=== PATIENT | female | born 1955 | race Caucasian/White ===

== ENCOUNTER → 2017-06-17 09:33 | Outpatient (CLI) | payer BC, SELFPAY ==
[2017-06-17 12:09] LABS: Absolute Lymphocyte Count 1.41 X10^3/ul (0.83-4.51); Absolute Neutrophil Count 4.1 X10^3/uL (2.0-7.7); Basophil# 0.04 X10^3/uL; Basophil% 0.7 % (0-1); Eosinophil# 0.14 X10^3/uL; Eosinophils% 2.3 % (0-5); Hematocrit 34.5 % (37-47); Hemoglobin 10.7 g/dl (12.0-15.0); Lymphocyte # 1.41 X10^3/ul (4.0); Lymphocyte % 23.6 % (19-41); Mean Corpuscular Hgb 28.1 pg (27.0-32.0); Mean Corpuscular Volume 90.6 fL (81-99); Neutrophil # 4.07 X10^3/uL (2.7-7.7); Neutrophil % 68.1 % (47-70); Platelet Count 360 K/mm3 (150-450); RBC Distribution Width SD 49.2 fl (35.1-43.9); Red Blood Count 3.81 M/mm3 (4.2-5.4)
[2017-06-17 12:23] LABS: POSITIVE COUNT NO; POSITIVE DIFFERENTIAL NO; POSITIVE MORPHOLOGY NO
[2017-06-17 12:27] LABS: Erythrocyte Sedimentation Rate 19 mm/hr (0-30)
[2017-06-17 12:55] LABS: ALB/GLOB Ratio 1.1 RATIO (0.9-2.4); AST(SGOT) 19 U/L (15-37); Alanine Aminotransfer ALT/SGPT 27 U/L (13-56); Albumin, Serum 3.5 g/dL (3.2-5.0); Alkaline Phosphatase 83 U/L (45-117); Anion Gap 7 (5-15); BUN 17 mg/dL (7-18); BUN/Creat Ratio 17.1 RATIO (10-20); Calcium,Total 8.9 mg/dL (8.5-10.1); Chloride 105 mmol/L (98-107); Creatinine, Serum 0.99 mg/dL (0.55-1.02); EST Glomerular Filtration Rate 60 mL/min (>60); Est Glom Filt Rate - Afr Amer 73 mL/min (>60); Globulin 3.2 g/dL (2.2-4.2); Glucose 103 mg/dL (74-106); Potassium 3.7 mmol/L (3.5-5.1); Protein, Total 6.7 g/dL (6.4-8.2); Sodium Level 141 mmol/L (136-145); Thyroid Stim Hormone (TSH) 0.96 uIU/mL (0.358-3.74)
[2017-06-17 16:16] LABS: Ferritin 10 ng/mL (8-252); Iron 39 ug/dL (50-170)
[2017-06-18 10:37] LABS: Vitamin D,25 Hydroxy 31.3 ng/mL (19.95-100.01)
== END ==
PROVIDERS: Family Provider Family Medicine; PCP Family Medicine; Visit Provider Family Medicine
DX: I12.9 Hypertensive chronic kidney disease with stage 1 through stage 4 chronic kidney disease, or unspecified chronic kidney disease (principal); N18.9 Chronic kidney disease, unspecified; M06.9 Rheumatoid arthritis, unspecified; E55.9 Vitamin D deficiency, unspecified; D64.9 Anemia, unspecified
CPT/HCPCS: 36415; 80053; 82306; 82728; 83540; 84443; 85025; 85652

== ENCOUNTER → 2017-07-02 10:29 | Outpatient (CLI) | payer BC, SELFPAY ==
[2017-07-03 16:10] LABS: Endomysial Antibody IgA Negative (Negative); Immunoglobulin A 73 mg/dL (87-352)
[2017-07-04 11:15] LABS: t-Transglutaminase IgA <2 U/mL (0-3)
== END ==
PROVIDERS: Family Provider Family Medicine; PCP Family Medicine; Visit Provider Internal Medicine Gastroenterology
DX: D50.9 Iron deficiency anemia, unspecified (principal)
CPT/HCPCS: 36415; 82784; 83516; 86255

== ENCOUNTER → 2017-07-16 12:04 | Outpatient (CLI) | payer BC, SELFPAY ==
[2017-07-17 16:11] LABS: Endomysial Antibody IgA Negative (Negative)
[2017-07-18 09:54] LABS: Deamidated Gliadin IgA 3 units (0-19); Deamidated Gliadin IgG 4 units (0-19); Immunoglobulin A 78 mg/dL (87-352); t-Transglutaminase IgA <2 U/mL (0-3)
== END ==
PROVIDERS: Family Provider Family Medicine; PCP Family Medicine; Visit Provider Internal Medicine Gastroenterology
DX: R53.83 Other fatigue (principal)
CPT/HCPCS: 36415; 82784; 83516; 86255

== ENCOUNTER → 2017-08-19 08:55 | Outpatient (CLI) | payer BC, SELFPAY ==
[2017-08-19] MEDS: Zoledronic Acid 5 MG 100 ML 300 MG IV (09:19)
[2017-08-19 09:22] VITALS: BP 114/77; PULSE 72; RESP 16; TEMP 36.4; O2SAT 96; BMI 30.2
== END ==
PROVIDERS: Family Provider Family Medicine; PCP Family Medicine; Visit Provider Internal Medicine Rheumatology
DX: M81.0 Age-related osteoporosis without current pathological fracture (principal)
CPT/HCPCS: 96365; A4216; J3489

== ENCOUNTER → 2017-12-03 12:21 | Outpatient (CLI) | payer BC, SELFPAY ==
[2017-12-03 14:07] LABS: Absolute Lymphocyte Count 2.57 X10^3/ul (0.83-4.51); Absolute Neutrophil Count 7.1 X10^3/uL (2.0-7.7); Basophil# 0.05 X10^3/uL; Basophil% 0.5 % (0-1); Eosinophil# 0.19 X10^3/uL; Eosinophils% 1.8 % (0-5); Hematocrit 36.8 % (37-47); Hemoglobin 11.4 g/dl (12.0-15.0); Lymphocyte # 2.57 X10^3/ul (4.0); Lymphocyte % 24.1 % (19-41); Mean Corpuscular Hgb 28.4 pg (27.0-32.0); Mean Corpuscular Volume 91.5 fL (81-99); Mean Platelet Vol. 10.1 fl (6.2-12.0); Monocyte# 0.69 X10^3/uL; Monocyte% 6.5 % (0-10); Neutrophil % 66.6 % (47-70); Platelet Count 400 K/mm3 (150-450); RBC Distribution Width CV 16.6 % (11.6-14.6); RBC Distribution Width SD 55.2 fl (35.1-43.9); Red Blood Count 4.02 M/mm3 (4.2-5.4); White Blood Count 10.7 K/mm3 (4.4-11.0)
[2017-12-03 14:08] LABS: POSITIVE COUNT NO; POSITIVE DIFFERENTIAL NO; POSITIVE MORPHOLOGY NO
[2017-12-03 14:11] LABS: Amphetamine Urine VISTA NEGATIVE (<1000 ng/mL); Barbiturate Urine VISTA NEGATIVE (< 200 ng/mL); Benzodiazepine Urine VISTA NEGATIVE (< 200 ng/mL); Cocaine Urine VISTA NEGATIVE (< 300 ng/mL); Ecstacy Urine VISTA NEGATIVE (< 500 ng/mL); Methadone Urine VISTA NEGATIVE (< 300 ng/mL); PCP Urine VISTA NEGATIVE (< 25 ng/mL); THC Urine VISTA NEGATIVE (< 50 ng/mL); Vista UDS pH Range 6
[2017-12-03 14:13] LABS: Ferritin 13 ng/mL (8-252); Iron 64 ug/dL (50-170)
== END ==
PROVIDERS: Family Provider Family Medicine; PCP Family Medicine; Visit Provider Family Medicine
DX: D50.9 Iron deficiency anemia, unspecified (principal); F11.20 Opioid dependence, uncomplicated
CPT/HCPCS: 36415; 80307; 82728; 83540; 85025

== ENCOUNTER → 2018-02-20 13:02 | Outpatient (CLI) | payer BC, SELFPAY ==
--- NOTE | 2018-02-20 13:04 | VDLE_ITS ---
[id number] VL^VDU^Venous Duplex US - Amauri Extrem [id number] TAG_START Cardiovascular Services Venous Doppler [address] [place], [place] [address] Ordering Physician: Jose Camarillo TAG_ENDED TAG_START Name: KIEL ENGLISH Study Date: 02/20/2018 01:07 PM Patient Location: [facility] : 1955 Gender: Female Age: 62 yrs Ethnicity: C TAG_ENDED Reason For Study: Leg pain/swelling RIGHT LEFT GSV is normal. GSV is normal. CFV is compressible, spontaneous, phasic, CFV is compressible, spontaneous, phasic, competent and demonstrates normal competent, and demonstrates normal augmentation. augmentation. FV is compressible, spontaneous, phasic, FV is compressible, spontaneous, phasic, competent and demonstrates normal competent and demonstrates normal augmentation. augmentation. POP V is compressible, spontaneous, phasic, POP V is compressible, spontaneous, phasic, competent and demonstrates normal competent and demonstrates normal augmentation. augmentation. T/P Trunk is compressible. T/P Trunk is compressible. PTV is compressible. PTV is compressible. RT PerV is compressible. LT PerV is compressible. Procedure Exam performed in department. A preliminary report was called and/or faxed to Dr. Camarillo. <> Interpretation Summary Deep veins of the lower extremities are bilaterally patent and compressible segmentally. There is no evidence of deep vein thrombosis on either side. Valvular competence appears intact within the proximal deep venous systems bilaterally. The greater saphenous veins appear bilaterally patent and compressible segmentally. TAG_START TAG_ENDED Ordering Physician: Jose Camarillo Referring Physician: Asif Drew Performed By: Elin Mcclain RVT and Student
== END ==
PROVIDERS: Family Provider Family Medicine; PCP Family Medicine; Referring Provider Anesthesiology Pain Medicine; Visit Provider Anesthesiology Pain Medicine
DX: M79.89 Other specified soft tissue disorders (principal); M79.606 Pain in leg, unspecified
CPT/HCPCS: 93970

== ENCOUNTER → 2018-02-25 15:43 | Outpatient (CLI) | payer BC, SELFPAY ==
--- NOTE | 2018-02-25 15:52 | MRI_ITS ---
STUDY: MRI LUMBAR SPINE WITHOUT CONTRAST REASON FOR EXAM: Female, 62 years old. Low back pain radiating down right leg TECHNIQUE: Standardized fat and water weighted pulse sequences were obtained in the sagittal and axial planes. COMPARISON: October 14, 2016 FINDINGS: T12-L1: Normal endplates. Normal disc height, hydration and morphology. Normal bilateral facet joints. Normal central canal and bilateral lateral recesses. Normal bilateral intervertebral neural foramina. Normal lumbar lordosis. There is no substantial scoliosis. Normal conus medullaris that terminates at T12-L1 L1-2: Normal endplates. Normal disc height, hydration and morphology. Normal bilateral facet joints. Normal central canal and bilateral lateral recesses. Normal bilateral intervertebral neural foramina. L2-3: Normal endplates. Normal disc height, hydration and morphology. Normal bilateral facet joints. Normal central canal and bilateral lateral recesses. Normal bilateral intervertebral neural foramina. L3-4: Normal endplates. Normal disc height, desiccation and minimal annular bulge with small bilateral foraminal disc protrusions. Normal bilateral facet joints. Normal central canal and bilateral lateral recesses. Mild bilateral neural foraminal encroachment. L4-5: Normal endplates. Normal disc height, desiccation and minor annular bulge with tiny central annular tear and disc protrusion. Mild facet arthropathy and thickening of ligamenta flava.. Normal central canal. Mild bilateral recess and neuroforaminal encroachment. L5-S1: Normal endplates. Normal disc height, desiccation and mild annular bulge with small left paracentral disc protrusion. Bilateral facet arthropathy.. Normal central canal. Mild bilateral recess and neuroforaminal encroachment. Normal visualized sacral ala. Normal visualized paraspinous soft tissue structures. No significant changes since prior exam MRI/Spine Lumbar (Routine) IMPRESSION: No evidence for acute fracture or other significant bony pathology Mild spinal stenosis at L3-4, L4-5 and L5-S1 secondary to disc disease and bony hypertrophy. . Findings as above Electronically Signed: Harpreet Gao MD at 19:59 EDT , Service support ,
--- NOTE | 2018-02-25 15:56 | MRI_ITS ---
STUDY: MRI CERVICAL SPINE WITHOUT CONTRAST REASON FOR EXAM: Female, 62 years old. Neck pain radiating into both arms TECHNIQUE: Standardized fat and water weighted pulse sequences were obtained in the sagittal and axial planes. COMPARISON: 06/17/2016 FINDINGS: Normal foramen magnum and brainstem-cervical cord junction. Normal craniovertebral junction. There are degenerative changes of the anterior atlantoaxial articulation. Normal odontoid process. Normal cervical lordosis. Normal vertebral bodies and posterior osseous elements. C2-3: Normal endplates. Normal disc height, signal and morphology. Normal central canal and intervertebral neural foramina. C3-4: Normal endplates. Normal disc height, signal and morphology. Normal central canal and intervertebral neural foramina. C4-5: Normal endplates. Normal disc height, signal and morphology. Normal central canal and intervertebral neural foramina. C5-6: Normal endplates. Normal disc height, signal and morphology. Normal central canal and intervertebral neural foramina. C6-7: Disc osteophyte complex without compressive sequelae. C7-T1: Normal endplates. Normal disc height, signal and morphology. Normal central canal and intervertebral neural foramina. Normal cervical cord. Normal visualized soft tissue structures. MRI/Spine Cervical (Routine) IMPRESSION: Mild disc disease at C6-7 without compressive sequelae. No evidence of exiting nerve root impingement or cord pathology. Electronically Signed: Juliocesar Oleary MD at 6:15 EDT Tel , Service support ,
--- NOTE | 2018-02-25 17:25 | RAD_ITS ---
STUDY: X-RAY - LEFT ANKLE REASON FOR EXAM: Female, 62 years old. Pain, bruising TECHNIQUE: 3 view(s) of the ankle. COMPARISON: None. FINDINGS: Normal visualized distal tibia and fibula. Normal medial and lateral malleoli. Normal tibiotalar articulation and ankle mortise. Normal visualized talus. Small calcaneal spurs The visualized subtalar, talonavicular, calcaneocuboid and tarsal articulations are normal. Nonspecific soft tissue swelling. RAD/Ankle min 3 Views IMPRESSION: Small calcaneal spurs without evidence of fracture. There is however subtle soft tissue swelling, an occult fracture cannot be completely excluded. Electronically Signed: Ishaan Arora MD at 15:46 EDT , Service support ,
== END ==
PROVIDERS: Family Provider Family Medicine; PCP Family Medicine; Referring Provider Anesthesiology Pain Medicine; Visit Provider Anesthesiology Pain Medicine
DX: M54.2 Cervicalgia (principal); M54.9 Dorsalgia, unspecified; M25.572 Pain in left ankle and joints of left foot; M79.603 Pain in arm, unspecified; M79.606 Pain in leg, unspecified
CPT/HCPCS: 72141; 72148; 73610

== ENCOUNTER → 2018-03-17 12:00 | Outpatient (CLI) | payer BC, SELFPAY ==
[2018-03-17 13:30] LABS: Erythrocyte Sedimentation Rate 7 mm/hr (0-30)
[2018-03-17 13:31] LABS: Absolute Lymphocyte Count 1.99 X10^3/ul (0.83-4.51); Absolute Neutrophil Count 6.2 X10^3/uL (2.0-7.7); Basophil# 0.02 X10^3/uL; Basophil% 0.2 % (0-1); Eosinophil# 0.21 X10^3/uL; Eosinophils% 2.4 % (0-5); Hematocrit 37.7 % (37-47); Lymphocyte # 1.99 X10^3/ul (4.0); Lymphocyte % 22.4 % (19-41); Mean Corp Hgb Conc 31.8 g/gl (32-36); Mean Corpuscular Hgb 30.1 pg (27.0-32.0); Mean Corpuscular Volume 94.5 fL (81-99); Mean Platelet Vol. 9.7 fl (6.2-12.0); Monocyte# 0.49 X10^3/uL; Monocyte% 5.5 % (0-10); Neutrophil # 6.16 X10^3/uL (2.7-7.7); Neutrophil % 69.2 % (47-70); Platelet Count 380 K/mm3 (150-450); RBC Distribution Width CV 14.3 % (11.6-14.6); RBC Distribution Width SD 48.8 fl (35.1-43.9); Red Blood Count 3.99 M/mm3 (4.2-5.4); White Blood Count 8.9 K/mm3 (4.4-11.0)
[2018-03-17 13:33] LABS: AST(SGOT) 12 U/L (15-37); Alanine Aminotransfer ALT/SGPT 23 U/L (13-56); Albumin, Serum 3.6 g/dL (3.2-5.0); BUN 26 mg/dL (7-18); Creatinine, Serum 1.59 mg/dL (0.55-1.02); EST Glomerular Filtration Rate 35 mL/min (>60); Est Glom Filt Rate - Afr Amer 42 mL/min (>60); POSITIVE COUNT NO; POSITIVE DIFFERENTIAL NO; POSITIVE MORPHOLOGY NO
== END ==
PROVIDERS: Family Provider Family Medicine; PCP Family Medicine; Referring Provider Internal Medicine Rheumatology; Visit Provider Internal Medicine Rheumatology
DX: N18.3 Chronic kidney disease, stage 3 (moderate) (principal); M35.9 Systemic involvement of connective tissue, unspecified; M79.7 Fibromyalgia
CPT/HCPCS: 36415; 82040; 82565; 84450; 84460; 84520; 85025; 85652; 86140

== ENCOUNTER → 2018-04-17 12:54 | Outpatient (CLI) | payer BC, SELFPAY ==
[2018-04-17 13:36] LABS: AST(SGOT) 11 U/L (15-37); Alanine Aminotransfer ALT/SGPT 20 U/L (13-56); Albumin, Serum 3.3 g/dL (3.2-5.0); BUN 17 mg/dL (7-18); CRP 5.08 mg/L (0.0-3.0); Creatinine, Serum 1.12 mg/dL (0.55-1.02); EST Glomerular Filtration Rate 52 mL/min (>60); Est Glom Filt Rate - Afr Amer 63 mL/min (>60); Iron 40 ug/dL (50-170); Iron Binding Capacity,Total 376 ug/dL (250-450)
== END ==
PROVIDERS: Family Provider Family Medicine; PCP Family Medicine; Referring Provider Internal Medicine Rheumatology; Visit Provider Internal Medicine Rheumatology
DX: M81.0 Age-related osteoporosis without current pathological fracture (principal); M83.9 Adult osteomalacia, unspecified
CPT/HCPCS: 36415; 82040; 82565; 83540; 83550; 84450; 84460; 84520; 86140

== ENCOUNTER → 2018-07-21 15:09 | Outpatient (CLI) | payer BC, SELFPAY ==
[2017-08-19 09:22] VITALS: BMI 30.2
[2018-07-21 16:14] LABS: Amphetamine Urine VISTA NEGATIVE (<1000 ng/mL); Barbiturate Urine VISTA NEGATIVE (< 200 ng/mL); Benzodiazepine Urine VISTA NEGATIVE (< 200 ng/mL); Cocaine Urine VISTA NEGATIVE (< 300 ng/mL); Ecstacy Urine VISTA NEGATIVE (< 500 ng/mL); Methadone Urine VISTA NEGATIVE (< 300 ng/mL); PCP Urine VISTA NEGATIVE (< 25 ng/mL); THC Urine VISTA NEGATIVE (< 50 ng/mL); Vista UDS pH Range 6
== END ==
PROVIDERS: Family Provider Family Medicine; PCP Family Medicine; Referring Provider Anesthesiology Pain Medicine; Visit Provider Anesthesiology Pain Medicine
DX: F11.20 Opioid dependence, uncomplicated (principal)
CPT/HCPCS: 80307

== ENCOUNTER → 2019-02-24 | Outpatient (CLI) | payer BC, SELFPAY ==
[2019-02-24 09:50] VITALS: BMI 33.6
[2019-02-24 11:36] LABS: Absolute Lymphocyte Count 2.03 X10^3/uL (0.83-4.51); Absolute Neutrophil Count 5.5 X10^3/uL (2.0-7.7); Basophil# 0.06 X10^3/uL; Basophil% 0.7 % (0-1); Eosinophil# 0.17 X10^3/uL; Hematocrit 39.4 % (37-47); Hemoglobin 12.7 g/dL (12.0-15.0); Lymphocyte # 2.03 X10^3/ul (4.0); Lymphocyte % 24.3 % (19-41); Mean Corp Hgb Conc 32.2 g/dL (32-36); Mean Corpuscular Hgb 30.8 pg (27.0-32.0); Mean Corpuscular Volume 95.4 fL (81-99); Mean Platelet Vol. 10.3 fl (6.2-12.0); Monocyte# 0.52 X10^3/uL; Monocyte% 6.2 % (0-10); NRBC Flagged by Analyzer 0 % (0-5); Neutrophil # 5.49 X10^3/uL (2.7-7.7); Platelet Count 322 K/mm3 (150-450); RBC Distribution Width SD 49.7 fl (35.1-43.9); Red Blood Count 4.13 M/mm3 (4.2-5.4); White Blood Count 8.3 K/mm3 (4.4-11.0)
[2019-02-24 12:14] LABS: AST(SGOT) 9 U/L (15-37); Alanine Aminotransfer ALT/SGPT 17 U/L (13-56); Albumin, Serum 3.5 g/dL (3.2-5.0); Alkaline Phosphatase 74 U/L (45-117); Anion Gap 4 (5-15); BUN 19 mg/dL (7-18); BUN/Creat Ratio 17.1 RATIO (10-20); Bilirubin, Direct 0.05 mg/dL (0.00-0.30); Chloride 106 mmol/L (98-107); Cholesterol 200 mg/dL (200); Creatinine, Serum 1.11 mg/dL (0.55-1.02); EST Glomerular Filtration Rate 53 mL/min (>60); Est Glom Filt Rate - Afr Amer 64 mL/min (>60); Globulin 3.4 g/dL (2.2-4.2); Glucose 97 mg/dL (74-106); High Density Lipoprotein 64 mg/dL; Magnesium 2.4 mg/dL (1.6-2.6); Potassium 4.3 mmol/L (3.5-5.1); Protein, Total 6.9 g/dL (6.4-8.2); Sodium Level 141 mmol/L (136-145); Thyroid Stim Hormone (TSH) 1.44 uIU/mL (0.358-3.74); Triglycerides 96 mg/dL; Very Low Density Lipoprotein 19 mg/dL (5-40)
== END | disposition home or self-care (01) ==
LOC: LAB 11:02
PROVIDERS: Family Provider Family Medicine; PCP Family Medicine; Referring Provider Internal Medicine Cardiovascular Disease; Visit Provider Internal Medicine Cardiovascular Disease
DX: E78.5 Hyperlipidemia, unspecified (principal); R53.83 Other fatigue; R07.9 Chest pain, unspecified
CPT/HCPCS: 36415; 80048; 80061; 80076; 83735; 84443; 85025

== ENCOUNTER → 2019-04-16 06:55 | Outpatient (CLI) | payer BC, SELFPAY ==
[2019-02-24 09:50] VITALS: BMI 33.6
--- NOTE | 2019-04-16 06:55 | ECHOD_ITS ---
Reason For Study: CP Procedure This was a 2D Doppler, Color Flow transthoracic echocardiogram. Exam performed in department. Left Ventricle Normal LV size. Left ventricular systolic function is normal. The estimated ejection fraction is 60 %. Stage 1 diastolic dysfunction. No regional wall motion abnormalities noted. Right Ventricle Normal RV size. Normal systolic function. Atria The left atrium is mildly enlarged. Normal right atrium. Mitral Valve Normal mitral valve. Tricuspid Valve Normal tricuspid valve. Mild tricuspid valve insufficiency. Aortic Valve Normal aortic valve. Trisinus/trileaflet aortic valve. Pulmonic Valve Normal pulmonic valve. Great Vessels Normal aortic root. The pulmonary artery is normal size. Normal inferior vena cava. Pericardium/Pleural No pericardial effusion. MMode/2D Measurements & Calculations LVIDd: 4.4 cm IVSd: 1.1 cm Ao root diam: 3.9 cm LVIDs: 2.6 cm LVPWd: 1.2 cm LA dimension: 4.1 cm FS: 41.0 % LAV(MOD-bp): 64.4 ml LA A4 area: 20.5 cm2 RA A4 area: 15.3 cm2 LAV(MOD-bp) Indexed: 32.7 ml/m2 LAV(MOD-sp2): 62.7 ml LAV(MOD-sp4): 63.4 ml Time Measurements MV dec time: 0.36 sec Doppler Measurements & Calculations MV E max rosalio: 60.4 cm/sec Lat Peak E' Rosalio: 4.8 cm/sec Med Peak E' Rosalio: 5.0 cm/sec MV A max rosalio: 93.8 cm/sec E/E' lat: 12.6 E/E' med: 12.0 MV E/A: 0.64 MV V2 max: 113.6 cm/sec MV P1/2t max rosalio: 77.0 cm/sec Ao V2 max: 136.8 cm/sec MV max P.2 mmHg MV P1/2t: 126.2 msec Ao max P.5 mmHg MV V2 mean: 54.5 cm/sec MV dec slope: 178.8 cm/sec2 MV mean P.4 mmHg MVA(P1/2t): 1.7 cm2 MV V2 VTI: 28.4 cm LV V1 max: 112.2 cm/sec PA V2 max: 109.8 cm/sec LV V1 max P.0 mmHg PI dec slope: 144.5 cm/sec2 TR max rosalio: 210.9 cm/sec TR max P.8 mmHg Interpretation Summary Normal LV size. Left ventricular systolic function is normal. The estimated ejection fraction is 60 %. Stage 1 diastolic dysfunction. Structurally normal valves. Ordering Physician: Scott Smith Referring Physician: Asif Drew Performed By: Brodwolf, Jeffrey, RCS
--- NOTE | 2019-04-16 09:25 | STRESSREP ---
Stress Test Report Exercise myocardial perfusion stress test. 63-year-old lady with a history of chest pain. Medications: Lopressor Benicar. Stress testing. Resting EKG demonstrates normal sinus rhythm with a rate of 70 bpm normal intervals are noted resting blood pressures 148/80 mmHg. The patient exercised according to regular Sanju protocol for total duration of 5 minutes and 34 seconds. The maximum heart rate attained was 157 bpm which was 100% of maximum predicted heart rate the maximum workload was 7 metabolic equivalents. At rest there were no ST or T wave changes noted suggest ischemia at peak exercise upsloping ST changes noted less than 1 mm with no meet criteria for ischemia. The resting blood pressures 148/80 with a peak blood pressure 182/80 mmHg rate pressure product was 28,200. The test was terminated due to leg fatigue. Myocardial perfusion protocol. 11.0 mCi of technetium 99m sestamibi was injected at rest. Patient exercised according to regular Sanju protocol for 5-1/2 minutes and at peak exercise 33.0 mCi of technetium 99m sestamibi was injected stress images were obtained stress and rest images were reconstructed and compared in the short axis vertical long horizontal long axis. Gated images were also obtained Perfusion SPECT analysis: Review of the stress images demonstrate normal uptake of tracer noted in all areas of the myocardium the resting images similar demonstrate normal uptake of tracer noted in all areas of the myocardium. No areas of reversibility are noted suggest ischemia no previous infarct is noted. Gated SPECT analysis: The gated ejection fraction is 74%. Conclusion: Normal exercise myocardial perfusion stress test with no evidence of ischemia at a moderate workload. Preserved ejection fraction.
== END ==
PROVIDERS: Family Provider Family Medicine; PCP Family Medicine; Referring Provider Internal Medicine Cardiovascular Disease; Visit Provider Internal Medicine Cardiovascular Disease
DX: R07.9 Chest pain, unspecified (principal)
CPT/HCPCS: 78452; 93017; 93306; A9500; A4216

== ENCOUNTER → 2020-02-15 | Outpatient (CLI) | payer MEDICARE, BC, SELFPAY ==
[2019-02-24 09:50] VITALS: BMI 33.6
[2020-02-15 14:40] LABS: Absolute Lymphocyte Count 2.27 X10^3/uL (0.83-4.51); Absolute Neutrophil Count 6.9 X10^3/uL (2.0-7.7); Basophil# 0.03 X10^3/uL; Basophil% 0.3 % (0-1); Eosinophil# 0.12 X10^3/uL; Eosinophils% 1.2 % (0-5); Hemoglobin 13.7 g/dL (12.0-15.0); Lymphocyte # 2.27 X10^3/ul (4.0); Lymphocyte % 22.9 % (19-41); Mean Corp Hgb Conc 31.9 g/dL (32-36); Mean Corpuscular Hgb 31.3 pg (27.0-32.0); Mean Corpuscular Volume 98.2 fL (81-99); Mean Platelet Vol. 10.4 fl (6.2-12.0); Monocyte# 0.52 X10^3/uL; Monocyte% 5.2 % (0-10); NRBC Flagged by Analyzer 0 % (0-5); Neutrophil # 6.88 X10^3/uL (2.7-7.7); Neutrophil % 69.5 % (47-70); Platelet Count 402 K/mm3 (150-450); RBC Distribution Width CV 13.2 % (11.6-14.6); RBC Distribution Width SD 47.2 fl (35.1-43.9); Red Blood Count 4.38 M/mm3 (4.2-5.4); White Blood Count 9.9 K/mm3 (4.4-11.0)
[2020-02-15 15:10] LABS: ALB/GLOB Ratio 1.1 RATIO (0.9-2.4); AST(SGOT) 11 U/L (15-37); Alanine Aminotransfer ALT/SGPT 17 U/L (13-56); Albumin, Serum 3.7 g/dL (3.2-5.0); Alkaline Phosphatase 78 U/L (45-117); Anion Gap 4 (5-15); BUN 11 mg/dL (7-18); BUN/Creat Ratio 10.3 RATIO (10-20); Calcium,Total 8.7 mg/dL (8.5-10.1); Chloride 107 mmol/L (98-107); Cholesterol 201 mg/dL (200); Creatinine, Serum 1.07 mg/dL (0.55-1.02); EST Glomerular Filtration Rate 55 mL/min (>60); Est Glom Filt Rate - Afr Amer 66 mL/min (>60); Globulin 3.3 g/dL (2.2-4.2); Glucose 86 mg/dL (74-106); High Density Lipoprotein 83 mg/dL; Sodium Level 140 mmol/L (136-145); Triglycerides 98 mg/dL; Very Low Density Lipoprotein 20 mg/dL (5-40)
== END | disposition home or self-care (01) ==
LOC: LAB 13:21
PROVIDERS: PCP Family Medicine; Referring Provider Family Medicine; Visit Provider Family Medicine
DX: N18.9 Chronic kidney disease, unspecified (principal); E78.5 Hyperlipidemia, unspecified; M06.9 Rheumatoid arthritis, unspecified; M81.0 Age-related osteoporosis without current pathological fracture; D64.9 Anemia, unspecified; D63.1 Anemia in chronic kidney disease
CPT/HCPCS: 36415; 80053; 80061; 82306; 85025

== ENCOUNTER → 2020-03-16 12:12 | Outpatient (CLI) | payer MEDICARE, BC, SELFPAY ==
[2019-02-24 09:50] VITALS: BMI 33.6
== END ==
PROVIDERS: PCP Family Medicine; Visit Provider Family Medicine
DX: Z12.4 Encounter for screening for malignant neoplasm of cervix (principal)
CPT/HCPCS: 88175; G0145

== ENCOUNTER → 2020-03-18 12:49 | Outpatient (CLI) | payer MEDICARE, BC, SELFPAY ==
[2019-02-24 09:50] VITALS: BMI 33.6
== END ==
PROVIDERS: PCP Family Medicine; Visit Provider Family Medicine
DX: R19.7 Diarrhea, unspecified (principal)
CPT/HCPCS: 83630; 87177; 87209; 87493; 87506

== ENCOUNTER → 2020-03-30 18:33 | Outpatient (CLI) | payer MEDICARE, BC, SELFPAY ==
[2019-02-24 09:50] VITALS: BMI 33.6
== END ==
PROVIDERS: PCP Family Medicine; Referring Provider Family Medicine; Visit Provider Family Medicine
DX: Z20.828 Contact with and (suspected) exposure to other viral communicable diseases (principal)
CPT/HCPCS: 87635; C9803; U0003

== ENCOUNTER → 2020-05-11 12:43 | Outpatient (CLI) | payer MEDICARE, BC, SELFPAY ==
[2019-02-24 09:50] VITALS: BMI 33.6
--- NOTE | 2020-05-11 12:48 | BI_ITS ---
MAMMOGRAPHY - BILATERAL SCREENING REASON FOR EXAM: Female, 64 years old. Routine annual screening examination. PERTINENT HISTORY: Grandmother with breast cancer. Aunt with breast cancer. Remote right stereotactic breast biopsy. TECHNIQUE: Digital bilateral breast bhavik (3D mammographic acquisition) in the CC and MLO projections. 2-D mediolateral oblique (MLO) and craniocaudad (CC) views of both breasts were obtained. CAD: Full Field Digital Mammography with Computer Added Detection was performed. COMPARISON: Comparison is made with prior examination dated 04/11/2017 and 12/26/2015. FINDINGS: Breast Composition: The breasts are heterogeneously dense, which may obscure small masses. There now is evidence of a 1.5 cm x 0.8 cm spiculated nodule in the upper deep central portion of the left breast. Faint calcifications are seen within it. Correlation with the ultrasound is recommended for further evaluation. No other significant abnormalities are identified. BI/SCRN MAMM (CAD)W/BHAVIK BILAT IMPRESSION: New 1.5 cm x 0.8 cm. Nodule in the deep upper central portion of the left breast. Faint microcalcifications are seen. Correlation with ultrasound is recommended. ASSESSMENT CATEGORY: BIRADS Category 0: Incomplete. Need additional imaging evaluation. A letter regarding these results will be sent to the patient by the facility within 30 days. Approximately 10% of breast cancers are not detected by mammography. A normal mammogram should not delay biopsy of a clinically suspicious abnormality. [id number] Electronically Signed: Imer Gutierrez, at 13:55 EST , Service support ,
--- NOTE | 2020-05-11 13:05 | BD_ITS ---
STUDY: DUAL ENERGY X-RAY ABSORPTIOMETRY / DXA REASON FOR EXAM: Female, 64 years old. TERMINAL CARMAN- SURGICAL EARLY AT 37 YRS OLD -- HX OF SMOKING -- DAILY USE OF PREDNISONE FOR A LONG TIME FOR ASTHMA -- HX OF DIURETIC IN HEART MEDICATION -- HX OF TAKING ANTISEIZURE MED IN PAST -- TAKES VITAMIN D -- HX OF TAKING FOSAMAX -- DOES HIGH AMOUNT OF EXERCISE -- FAMILY HX OF OSTEO- MOTHER, GRANDMOTHER, SISTER, BROTHER -- AMBROSIO OF 1.75 INCHES TECHNIQUE: Bone Mineral Density (BMD) measurements of lumbar spine and bilateral hips were obtained. COMPARISON: Comparison is made with prior study 12/26/2015. FINDINGS: Lumbar Spine (L1-L4): g/cm2 (0.874) / T-score (-2.6) / Z-score (-1.0) Findings are suggestive of osteoporosis with a high fracture risk. Left Femur Total: g/cm2 (0.808) / T-score (-1.6) / Z-score (-0.4) Left Femoral Neck: g/cm2 (0.794) / T-score (-1.8) / Z-score (-0.3) Right Femur Total: g/cm2 (0.841) / T-score (-1.3) / Z-score (-0.1) Right Femoral Neck: g/cm2 (0.808) / T-score (-1.7) / Z-score (-0.2) The T-Scores on the most recent prior examination were: Lumbar Spine (L1-L4): There has been improvement of bone density since the previous examination. Left Femur Total: which represents an improvement of 2.5%. Right Femur Total: which represents a worsening of 0.1%. BD/Dexa Bone Density Study IMPRESSION: The patient is considered osteoporotic as outlined below according to World Hermes Organization (WHO) criteria with a high fracture risk. There has been improvement of bone density since the previous examination. Reference Information: The T-score is the number of standard deviations above or below the standard which is normal for young adults at their peak bone mineral density. The World Health Organization (WHO) interprets the T-scores as follows: Above -1 Normal bone density Between -1 and -2.5 Osteopenia Equal to / or below -2.5 Osteoporosis As a practical clinical guideline, osteopenia may be graded as follows: Mild -1 through -1.5 Moderate -1.6 through -2.0 Severe -2.1 through -2.4 The Z-score is the number of standard deviations above or below age-matched controls. A Z-score of less than -1.5 would be considered abnormal. References: 1. NIH Osteoporosis and Related Bone Diseases www osteo.org 2. International Society for Clinical Densitometry www iscd.org 3. National Osteoporosis Foundation www nof.org Electronically Signed: Imer Gutierrez, at 15:01 EST , Service support ,
== END ==
PROVIDERS: PCP Family Medicine; Referring Provider Family Medicine; Visit Provider Family Medicine
DX: M81.0 Age-related osteoporosis without current pathological fracture (principal); Z12.31 Encounter for screening mammogram for malignant neoplasm of breast
CPT/HCPCS: 77063; 77067; 77080

== ENCOUNTER → 2020-05-15 13:54 | Outpatient (CLI) | payer MEDICARE, BC, SELFPAY ==
[2019-02-24 09:50] VITALS: BMI 33.6
--- NOTE | 2020-05-15 13:56 | US_ITS ---
STUDY: ULTRASOUND BREAST - LEFT REASON FOR EXAM: Female, 64 years old. Abnormal screening mammogram. TECHNIQUE: Axial and longitudinal images of the LEFT breast were performed with a high resolution ultrasound transducer. # OF IMAGES: 51 COMPARISON: Comparison is made with prior mammogram dated 05/11/2020. FINDINGS: LEFT Breast: The mammographic abnormality corresponds to a 9 mm x 7 mm x 8 mm irregular hypoechoic nodule with posterior shadowing at the 12 o''clock position of the breast at 3 cm from the nipple. Increased vascularity is seen. A biopsy is recommended. US/Breast Limited Unilateral IMPRESSION: The mammographic abnormality corresponds to a 9 mm x 7 mm x 8 mm irregular hypoechoic solid nodule with shadowing at the 12 o''clock position of the breast at 3 cm from the nipple. A biopsy recommended. ASSESSMENT CATEGORY: BIRADS Category 5: Highly Suggestive of Malignancy - Appropriate Action Should Be Taken. A letter regarding these results will be sent to the patient by the facility within 30 days. Electronically Signed: Imer Gutierrez MD at 15:54 EST , Service support ,
== END ==
PROVIDERS: PCP Family Medicine; Referring Provider Family Medicine; Visit Provider Family Medicine
DX: R92.8 Other abnormal and inconclusive findings on diagnostic imaging of breast (principal)
CPT/HCPCS: 76642

== ENCOUNTER → 2020-05-18 | Outpatient (CLI) | payer MEDICARE, BC, SELFPAY ==
--- NOTE | 2020-05-18 | IMM_PTH ---
PATIENT: KIEL ENGLISH LOC: [facility] U#:[id number] AGE/SX: 64/F ROOM: RE05/18/[address]: Dr. Carlos Cameron MD : 1955 BED: DIS: 05/18/2020 SPEC #: [id number] RECD: 05/19/20 12:13 STATUS: BALDEMAR REQ #: [id number] DIMITRI: 05/18/20 00:[address]: Carlos Cameron DEPT: IMMUNOHISTOCHEMISTRY RECD BY: Carmen Hale ENTERED: 05/19/20 12:14 SP TYPE: IMMUNO OTHR DR: Dr. Asif Drew MD Tissues: Left breast, NOS Procedures: Calponin-1(initial) CK8 (add) P53 (add) P40 (add) PHYSICIAN & INSTITUTION [place] [address] SPECIMEN INFORMATION: Tissue Source: Left breast tissue Clinical Info: Abnormal left breast ultrasound Specimen Number: [id number] CPT code: 06495, 20724 x3 METHODOLOGY: Deparaffinized sections of prefer/formalin-fixed tissue or PAP/DQ stained slides are incubated with monoclonal/polyclonal antibodies/oligonucleotide probes. Localization is made via biotin free immunoperoxidase method. Appropriate controls are performed and reacted as expected. Results on target cell population are indicated in the following table: RESULTS: ANTIBODY / CLONE RESULT P40 (BC28) negative Calponin-1 (VN465C) positive CK8 ([id number]) positive P53 (DO-7) positive, 4%, dim These tests were developed and their performance characteristics determined by [facility]. They may not have been cleared or approved by the U.S. Food and Drug Administration. The FDA has determined that such clearance or approval is not necessary. The above immunohistochemical/dualISH markers are ordered and reviewed by the pathologist. 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 AM:herbert 05/22/2020
[2020-05-18 07:16] VITALS: BMI 30.3
--- NOTE | 2020-05-18 07:20 | BRBX_PTH ---
PATIENT: KIEL ENGLISH LOC: [facility] U#:[id number] AGE/SX: 64/F ROOM: RE05/18/[address]: Dr. Carlos Cameron MD : 1955 BED: DIS: 05/18/2020 SPEC #: [id number] RECD: 05/18/20 11:53 STATUS: BALDEMAR REKacy #: [id number] DIMITRI: 05/18/20 07:[address]: Carlos Cameron DEPT: SURGICAL PATHOLOGY RECD BY: Sumaya Newton ENTERED: 05/18/20 12:29 SP TYPE: BREAST BX OTHR DR: Dr. Asif Drew MD Tissues: Breast, NOS Procedures: Surgery Specimen Level IV HEADER OPERATION: Left breast biopsy PRE-OP DIAGNOSIS: Abnormal left breast ultrasound TISSUE SUBMITTED: Left breast tissue MICROSCOPIC DIAGNOSIS Left breast, ultrasound-guided core biopsy: Fragments of atypical complex papillary neoplasm with associated necrosis and microcalcifications. See comment. AM:herbert 05/19/2020 COMMENT Clinical correlation is necessary. 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 Immunohistochemistry ([id number]) supports the above diagnosis. Case has been reviewed in consultation with Dr. Mejia who concurs with the above diagnosis. IDC:[email or web address] MICROSCOPIC DESCRIPTION Slides are reviewed. GROSS DESCRIPTION Received in fixative is one container labeled with the patient name and designated left breast. The specimen consists of multiple elongated fragments of suero-yellow fibroadipose tissue that in aggregate measure 0.5 x 0.5 x 0.1 cm. The entire specimen is submitted in one cassette. / RABIA:herbret 05/18/19 TC:? CPT: 01233
== END | disposition home or self-care (01) ==
LOC: LABSPEC 12:02
PROVIDERS: PCP Family Medicine; Referring Provider Surgery; Visit Provider Surgery
DX: R92.8 Other abnormal and inconclusive findings on diagnostic imaging of breast (principal)
CPT/HCPCS: 88305; 88341; 88342

== ENCOUNTER → 2020-05-30 11:04 | Outpatient (CLI) | payer MEDICARE, BC, SELFPAY ==
[2020-05-18 07:16] VITALS: BMI 30.3
[2020-05-29 18:07] LABS: Creatinine, Serum 0.99 mg/dL (0.55-1.02); EST Glomerular Filtration Rate 60 mL/min (>60); Est Glom Filt Rate - Afr Amer 72 mL/min (>60)
--- NOTE | 2020-05-30 11:05 | MRI_ITS ---
STUDY: BILATERAL BREAST MR WITHOUT AND WITH CONTRAST REASON FOR EXAM: Female, 64 years old. Newly diagnosed left breast cancer. TECHNIQUE: Multi-sequence multi-echo imaging of both breasts was performed with a dedicated breast coil. T1-weighted and T2-weighted images were performed before the administration of contrast. T1-weighted images were also performed after the administration of 17ml Dotarem injected via IV without complications. COMPARISON: Bilateral mammogram dated 05/11/2019 and left breast ultrasound dated 05/15/2020. FINDINGS: RIGHT BREAST: The breast tissue is heterogeneously dense with no background enhancement. There are no abnormal enhancing masses or areas of non-mass enhancement in the right breast. LEFT BREAST: The breast tissue is heterogeneously dense with no background enhancement. 2 enhancing masses in the upper half of the left breast. The largest enhancing mass is located approximately 5.2 cm behind the nipple and 3.7 cm above the nipple and corresponds to the index lesion. This mass measures approximately 15 mm x 17 mm x 7 mm and has a tissue clip marker artifact centrally (axial series 12441 image 114). A smaller enhancing mass located 4.7 cm behind the nipple and 2.4 cm above the nipple is present. This mass measures 9 mm x 7 mm x 4 mm and is located 1.9 cm below the index lesion and 8 mm anterior to the index lesion (sagittal series 7 images 12-15, axial series 31372 image 145). Fatty replaced lymph nodes in both axillae. There is no abnormality in the visualized regions of the chest or liver. MRI/Breast Bilateral W/O and W IMPRESSION: 2 enhancing lesions in the left breast within the same quadrant representing multifocal involvement. No other abnormality present. CATEGORY: BIRADS Category 6: Known Biopsy-Proven Malignancy - Appropriate Action Should Be Taken. A letter regarding these results will be sent to the patient by the facility within 30 days. Electronically Signed: Abelino Arvizu MD at 14:48 EST , Service support ,
--- NOTE | 2020-05-30 11:06 | US_ITS ---
STUDY: ULTRASOUND OF THE FEMALE PELVIS - COMPLETE REASON FOR EXAM: Female, 64 years old. LLQ PAIN LMP: Status post hysterectomy. TECHNIQUE: Transabdominal TECHNICAL QUALITY: Adequate. COMPARISON: Comparison is made with prior study dated 10/05/2012. FINDINGS: The patient is status post hysterectomy. The right ovary is visualized. The right ovary measures 1.7 cm x 1.3 cm x 0.9 cm. There is no right ovarian cyst or ovarian mass. There is no visualized right adnexal mass or complex lesion. There is normal arterial and normal venous vascularity. The left ovary is visualized. The left ovary measures 1.8 cm x 2.1 cm x 0.9 cm. There is no left ovarian cyst or ovarian mass. There is no visualized left adnexal mass or complex lesion. There is normal arterial and normal venous vascularity. There is no fluid in the cul-de-sac. The pre void volume of the bladder was 321 ml. Polycystic ovary disease: No. US/Pelvic (Non ) IMPRESSION: Status post hysterectomy. No acute abnormality is seen. Electronically Signed: Imer Gutierrez MD at 12:38 EST , Service support ,
== END ==
PROVIDERS: PCP Family Medicine; Referring Provider Surgery; Visit Provider Surgery
DX: R92.8 Other abnormal and inconclusive findings on diagnostic imaging of breast (principal); R10.32 Left lower quadrant pain
CPT/HCPCS: 36415; 76856; 77049; 82565; A9575; A4216; C8908

== ENCOUNTER → 2020-05-31 09:31 | Outpatient (CLI) | payer MEDICARE, BC, SELFPAY ==
[2020-05-18 07:16] VITALS: BMI 30.3
--- NOTE | 2020-05-31 09:33 | US_ITS ---
STUDY: ULTRASOUND BREAST - LEFT REASON FOR EXAM: Female, 64 years old. Abnormal MRI finding. TECHNIQUE: Axial and longitudinal images of the LEFT breast were performed with a high resolution ultrasound transducer. # OF IMAGES: 24 COMPARISON: Comparison is made with prior MRI dated 05/30/2020. FINDINGS: LEFT Breast: There is evidence of a 6 mm x 7 mm x 7 mm irregular hypoechoic solid nodule at the 12 o''clock position of the breast at 2 cm from the nipple. US/Breast Limited Unilateral IMPRESSION: Irregular hypoechoic nodule at the 12 o''clock position of the breast at 2 cm from nipple. This measures 6 mm x 7 mm x 7 mm. Biopsy is recommended. ASSESSMENT CATEGORY: BIRADS Category 4: Suspicious - Biopsy Should Be Considered. A letter regarding these results will be sent to the patient by the facility within 30 days. Electronically Signed: Imer Gutierrez MD at 10:58 EST , Service support ,
== END ==
PROVIDERS: PCP Family Medicine; Referring Provider Surgery; Visit Provider Surgery
DX: N63.25 Unspecified lump in the left breast, overlapping quadrants (principal)
CPT/HCPCS: 76642

== ENCOUNTER → 2020-06-01 | Outpatient (CLI) | payer MEDICARE, BC, SELFPAY ==
[2020-05-31 15:55] VITALS: BMI 30.3
--- NOTE | 2020-06-01 | BRBX_PTH ---
PATIENT: KIEL ENGLISH LOC: [facility] U#:[id number] AGE/SX: 64/F ROOM: RE06/01/[address]: Dr. Carlos Cameron MD : 1955 BED: DIS: 06/01/2020 SPEC #: [id number] RECD: 06/01/20 12:45 STATUS: BALDEMAR REKacy #: [id number] DIMITRI: 06/01/20 00:[address]: Carlos Cameron DEPT: SURGICAL PATHOLOGY RECD BY: Sergo Harris ENTERED: 06/01/20 12:45 SP TYPE: BREAST BX OTHR DR: Dr. Asif Drew MD Tissues: Left breast, NOS Procedures: Surgery Specimen Level IV HEADER OPERATION: Left breast biopsy PRE-OP DIAGNOSIS: Left breast mass TISSUE SUBMITTED: Left breast tissue 12 o'clock, +2 FIXATION TIME: 9 hours MICROSCOPIC DIAGNOSIS Left breast, 12 o'clock, +2, core biopsy: Invasive ductal carcinoma, nuclear grade 1 (0.4 cm in greatest length). Ductal carcinoma in situ. See comment. SJ:herbert 06/02/2020 COMMENT Immunohistochemistry ([id number]) supports the above diagnosis. Ductal carcinoma in situ shows solid papillary carcinoma pattern and also focal cribriform pattern. Ductal carcinoma in situ comprise about 60% of the total tumor volume. Please make reference to previous specimen ([id number]) left breast, ultrasound-guided core biopsy with diagnosis of fragments of atypical complex papillary neoplasm with associated necrosis and microcalcifications. Preliminary results are reported to Dr. Cameron's office on 06/02/2020 at 9:15 a.m. Case has been reviewed in consultation with Dr. Harvey who concurs with the above diagnosis. IDC:AM MICROSCOPIC DESCRIPTION Slides are reviewed. GROSS DESCRIPTION Received in fixative is one container labeled with the patient's name and designated left breast. The specimen consists of multiple irregular and elongated fragments of light suero soft tissue that in aggregate measure 1.2 x 0.5 x 0.1 cm. The specimen is totally submitted in one cassette. / AM:herbert 06/01/20 TC:0 CPT: 85576
--- NOTE | 2020-06-01 | IMM_PTH ---
PATIENT: KIEL ENGLISH LOC: [facility] U#:[id number] AGE/SX: 64/F ROOM: RE06/01/[address]: Dr. Carlos Cameron MD : 1955 BED: DIS: 06/01/2020 SPEC #: [id number] RECD: 06/02/20 11:14 STATUS: ABLDEMAR REQ #: [id number] DIMITRI: 06/01/20 00:[address]: Carlos Cameron DEPT: IMMUNOHISTOCHEMISTRY RECD BY: Carmen Hale ENTERED: 06/02/20 11:15 SP TYPE: IMMUNO OTHR DR: Dr. Asif Drew MD Tissues: Left breast, NOS Procedures: CALPONIN-1 (add) CK5-6 (add) CK8 (add) E-CAD (add) HER2 JOHN (add) KI-67 (add) P53 (add) OR (add) P40 (add) ER (initial) PHYSICIAN & INSTITUTION [address] [address] SPECIMEN INFORMATION: Tissue Source: Left breast Clinical Info: Left breast mass Specimen Number: [id number] CPT code: 11582, 35965 x6, 56808 x3 METHODOLOGY: Deparaffinized sections of prefer/formalin-fixed tissue or PAP/DQ stained slides are incubated with monoclonal/polyclonal antibodies/oligonucleotide probes. Localization is made via biotin free immunoperoxidase method. Appropriate controls are performed and reacted as expected. Results on target cell population are indicated in the following table: RESULTS: ANTIBODY / CLONE RESULT E-Cad (ECH-6) positive CK8 (69prqsO63) positive Calponin-1 (UT325U) negative CK5-6 (D5 & 1684) negative P40 (BC28) negative P53 (DO-7) negative Ki-67 (30-9) positive, low MORPHOMETRIC ANALYSIS ER (clone 6F11) >95%, strong staining OR (clone 16/1E2) >95%, strong staining Her-2Neu (clone CB11) 0 The prognostic test for HER2 is performed on formalin-fixed paraffin embedded tissue. A 3+ (positive) staining pattern is defined as intense, homogeneous, complete, circumferential membranous staining in >10% of contiguous tumor cells. A similar weak (2+) staining pattern is interpreted as equivocal. ELISSA follow-up testing is recommended for all equivocal cases. Positivity/negativity for ER/OR is reported if > or < 1% of the tumor cells are immuno- reactive, respectively. The ASCO/CAP criteria is used for scoring. Reference: Journal of Clinical Oncology, 2013; 31:6089-6228 & 2010; 16:4075-5291. Duration of fixation: 9 Hrs; Sample Adequate: Yes. These assays have not been validated on decalcified tissues. Results should be interpreted with caution given the likelihood of false negativity on decalcified specimens. These tests were developed and their performance characteristics determined by [facility]. They may not have been cleared or approved by the U.S. Food and Drug Administration. The FDA has determined that such clearance or approval is not necessary. The above immunohistochemical/dualISH markers are ordered and reviewed by the Pathologist. INTERPRETATION: Left breast, biopsy: Invasive ductal carcinoma. Focal ductal carcinoma in situ. Positive for estrogen receptors (favorable prognostic indicator). Positive for progesterone receptors (favorable prognostic indicator). Negative for overexpression of SHM6ezr. SJ:herbert 06/05/2020
== END | disposition home or self-care (01) ==
LOC: LABSPEC 11:24
PROVIDERS: PCP Family Medicine; Referring Provider Surgery; Visit Provider Surgery
DX: D05.12 Intraductal carcinoma in situ of left breast (principal)
CPT/HCPCS: 88305; 88341; 88342

== ENCOUNTER 2020-06-12 12:15 | Observation (INO) | payer MEDICARE, BC, SELFPAY ==
[2020-05-18 07:16] VITALS: BMI 30.3
--- NOTE | 2020-06-01 09:44 | EKG12_ITS ---
Test Reason : PREOP Blood Pressure : / mmHG Vent. Rate : 057 BPM Atrial Rate : 057 BPM P-R Int : 156 ms QRS Dur : 084 ms QT Int : 404 ms P-R-T Axes : 064 035 075 degrees QTc Int : 393 ms Sinus bradycardia Otherwise normal ECG Confirmed by HUMBERTO DAVIS, SARAH ([id number]), web editor MARY OSCAR ([id number]) on 06/02/2020 8:46:02 AM Referred By: Carlos Cameron Confirmed By:SARAH PAUL MD
--- NOTE | 2020-06-01 10:00 | RAD_ITS ---
STUDY: X-RAY CHEST REASON FOR EXAM: Female, 64 years old. Preop evaluation. History of breast cancer. TECHNIQUE: PA and lateral views of the chest. . COMPARISON: 02/22/2015 FINDINGS: The lungs are clear and expanded. There is no demonstrated pleural abnormality. Normal size heart. Normal mediastinum and zakiya. Normal visualized pulmonary arteries. There is atherosclerotic calcification of the aortic arch with tortuosity. Normal visualized thoracic spine. There is degenerative osteoarthritis of the bilateral shoulders. There is no demonstrated abnormality of the visualized soft tissue structures of the upper abdomen. RAD/Chest PA and Lateral IMPRESSION: No acute cardiopulmonary disease. Electronically Signed: Horacio Costa DO at 23:55 EST Tel [phone], Service support ,
[2020-06-01 10:39] LABS: Hematocrit 41.1 % (37-47); Mean Corp Hgb Conc 31.6 g/dL (32-36); Mean Corpuscular Hgb 31.3 pg (27.0-32.0); Mean Platelet Vol. 9.9 fl (6.2-12.0); Platelet Count 355 K/mm3 (150-450); RBC Distribution Width CV 12.7 % (11.6-14.6); RBC Distribution Width SD 46.5 fl (35.1-43.9); Red Blood Count 4.15 M/mm3 (4.2-5.4); White Blood Count 7.7 K/mm3 (4.4-11.0)
[2020-06-01 11:22] LABS: ALB/GLOB Ratio 1.1 RATIO (0.9-2.4); AST(SGOT) 12 U/L (15-37); Alanine Aminotransfer ALT/SGPT 19 U/L (13-56); Albumin, Serum 3.4 g/dL (3.2-5.0); Alkaline Phosphatase 83 U/L (45-117); Anion Gap 3 (5-15); BUN 13 mg/dL (7-18); BUN/Creat Ratio 13.8 RATIO (10-20); Calcium,Total 8.8 mg/dL (8.5-10.1); Chloride 110 mmol/L (98-107); Creatinine, Serum 0.94 mg/dL (0.55-1.02); EST Glomerular Filtration Rate 63 mL/min (>60); Est Glom Filt Rate - Afr Amer 77 mL/min (>60); Globulin 3.1 g/dL (2.2-4.2); Glucose 81 mg/dL (74-106); Protein, Total 6.5 g/dL (6.4-8.2); Sodium Level 142 mmol/L (136-145)
[2020-06-06 10:59] VITALS: BMI 30.4
[2020-06-12] VITALS (14 sets, daily range): BP systolic 107–165; BP diastolic 51–89; PULSE 54–75; RESP 16–18; TEMP 36.1–37; O2SAT 84–100; BMI 31.2
--- NOTE | 2020-06-12 | AXNB_PTH ---
PATIENT: KIEL ENGLISH LOC: [facility] U#:[id number] AGE/SX: 64/F [place] [facility] [place]/12/[address]: Dr. Carlos Caemron MD : 1955 BED: 1 DIS: 06/13/2020 SPEC #: [id number] RECD: 06/12/20 11:03 STATUS: BALDEMAR BELTRÁN #: [id number] DIMITRI: 06/12/20 00:[address]: Carlos Cameron DEPT: SURGICAL PATHOLOGY RECD BY: Carmen Hale ENTERED: 06/12/20 11:48 SP TYPE: AX NODE BX OTHR DR: Dr. Asif Drew MD Tissues: A - Axillary lymph node, NOS B - Breast, NOS Procedures: Frozen Section (charge) Frozen [facility]) Surgery Specimen Level V HEADER OPERATION: Mastectomy, sentinel lymph node biopsy, radiotracer identification PRE-OP DIAGNOSIS: Left breast cancer TISSUE SUBMITTED: A - Left axillary sentinel lymph nodes, left breast, FS at 1100, B - Left breast, silk suture alvarez axillary tail FROZEN SECTION DIAGNOSIS A. Left axillary sentinel lymph nodes, biopsy: Six out of six lymph nodes, negative for carcinoma. AM:herbert 06/12/2020 MICROSCOPIC DIAGNOSIS A. Left axillary sentinel lymph nodes, biopsy: One out of six lymph nodes, positive for a minute focus of metastatic isolated tumor cells. See comment. B. Left breast, mastectomy: Invasive ductal carcinoma, two foci. Ductal carcinoma in situ. See cancer summary in the comment section. SJ:herbert 06/16/2020 COMMENT A. Immunohistochemistry ([id number]) supports the above diagnosis. Permanent section shows only five lymph nodes. One of the lymph nodes in block 2 was exhausted during frozen section processing and shows only one lymph node. BREAST CANCER SUMMARY Procedure - total mastectomy Specimen laterality - left Invasive tumor: Tumor site - central portion Tumor size: Largest invasive carcinoma - 0.9 x 0.5 cm (measured microscopically) Histologic type - invasive ductal carcinoma, no special type Histologic grade (Madison grade): Glandular/tubular differentiation score - 2 Nuclear pleomorphism score - 1 Mitotic count score - 1 Overall grade - grade 1 (score of 4) Tumor focality - two foci of invasive carcinoma Size of individual foci - larger focus, 0.9 x 0.5 cm (measured microscopically) - Smaller focus, 0.7 x 0.5 cm, (measured microscopically) Ductal Carcinoma In Situ - present Positive for extensive intraductal component (EIC) Size (extent) of ductal carcinoma in situ: Estimated size - 1.5 x 0.5 cm (measured microscopically) The ductal carcinoma in situ comprise about 70% of the tumor volume. It is present adjacent to the invasive carcinoma. Number of blocks with DCIS - 4 Number of blocks examined - 13 Architectural pattern - cribriform and solid papillary carcinoma Nuclear grade - low to intermediate Necrosis - present (expansive comedo necrosis) Lobular carcinoma in situ - not identified Tumor extension: Skin - present and uninvolved Nipple - DCIS does not involve the nipple epidermis. Skeletal muscle - no skeletal muscle is present. Margins - the invasive carcinoma and DCIS are 1 cm away from the closest posterior margin. Regional Lymph Nodes: Total number of lymph nodes examined - 6 Number of sentinel lymph nodes examined - 6 Number of lymph nodes with macrometastases and micrometastases - 0 Number of lymph nodes with isolated tumor cells - 1 Size of largest metastatic deposits - 0.1 mm Extranodal extension - not identified Treatment effect - no known presurgical therapy. Lymphvascular invasion - not identified Dermal lymphvascular invasion - not identified Additional Pathologic Findings - - adenosis and fibrocystic changes with focal atypia. - Focal atypical lobular hyperplasia. - Changes consistent with previous biopsy site (two biopsy sites). Ancillary Studies: Previously performed on same tumor ([id number] / [id number]) ER: positive (>95%, strong intensity) TX: positive (>95%, strong intensity) Kpy1jmn: negative (0) Microcalcifications - present in ductal carcinoma in situ and non-neoplastic tissue. The non-neoplastic tissue shows extensive microcalcifications. Clinical History - Please make reference to previous specimens ([id number]) left breast, ultrasound-guided core biopsy with diagnosis of fragments of atypical complex papillary neoplasm with associated necrosis and microcalcifications and (S21411) left breast, 12 o'clock +2, core biopsy with diagnosis of invasive ductal carcinoma. Pathologic Stage: pT1b(m) pN0(i+) pMx The above summary is in compliance with [employer] (CAP) Cancer Protocols Checklist and [place] Joint Committee on Cancer (AJCC), Staging Manual, 8th Ed. B. Two biopsy sites are identified and both sites show invasive ductal carcinoma and ductal carcinoma in situ. Case has been reviewed in consultation with Dr. Harvey who concurs with the above diagnosis. IDC:AM MICROSCOPIC DESCRIPTION Slides are reviewed. GROSS DESCRIPTION A - Received fresh for frozen section consultation labeled with the patient's name is a specimen designated left axillary sentinel lymph nodes. The specimen consists of three irregular fragments of blue to yellow tissue ranging in size from 1.5 to 4.5 cm. Dissection reveals six nodules resembling lymph nodes and ranging in size from 0.6 to 2 cm. The lymph nodes are submitted in their entirety in five blocks as follows: 1 - two lymph nodes, 2 - two lymph nodes, 3 - one lymph node, bisected, 4 & 5 - one lymph node, bisected. / AM:herbert 06/12/2020 B - Received in fixative is one container labeled with the patient's name and designated left breast. The specimen consists of a mastectomy measuring 25 x 19 x 4.5 cm and weighing 631 gm. The anterior portion contains an ellipse of skin with centrally located nipple and areola. The skin fragment measures 5.5 x 8 cm. The specimen is differentially inked as follows: superior - blue, inferior - green and posterior - black. The skin does not contain any lesions. Serial sections reveal a centrally located firm, suero right area measuring 2 x 1.5 x 1 cm and containing a blood-filled biopsy cavity that contains a metallic staple. This area is located 1 cm from the closest (posterior) margin of resection. Approximately 1.3 cm medial to this is a second area of induration measuring 1 x 1 x 0.8 cm. This area is located 1.5 cm from the closest (posterior) margin of resection. Serial sections of the remainder of the breast cavity reveal mostly yellow fatty tissue interrupted focally by white fibrous streaks. [employer] sections are submitted as follows: 1 - perpendicular superior, inferior and posterior margins, 2 - perpendicular medial margin and nipple/areola, 3 - perpendicular lateral margin, 4-7 - centrally located lesion, 8 & 9 - smaller lesion medial to centrally located lesion, 10 & 11 - uninvolved breast parenchyma close to the centrally located lesion, 12 & 13 - uninvolved breast parenchyma away from lesions. Note, the smaller lesion is submitted in its entirety. / AM:herbert 06/13/20 TC:0 CPT: 88277 x2, 30965, 05102 x4 ADDENDUM ADDENDUM ADDENDUM ADDENDUM ADDENDUM ADDENDUM ADDENDUM ADDENDUM 07/12/2020 09:56 ADDENDUM 07/12/2020 09:56 ADDENDUM 07/12/2020 09:56 ADDENDUM 07/12/2020 09:56 ADDENDUM 07/12/2020 09:56 An order for Oncotype testing was received from Dr. Simental. This necessitated case review, block and slide selection by pathologist at [facility]. Breast Cancer Recurrence Score = 8 Results of the complete Oncotype testing ([facility] report) are viewable in EMR under: Reports - Pathology - Lab Pathology Report, Scanned.
--- NOTE | 2020-06-12 | IMM_PTH ---
PATIENT: KIEL ENGLISH LOC: [facility] U#:[id number] AGE/SX: 64/F [place] [facility] [place]12/[address]: Dr. Carlos Cameron MD : 1955 BED: 1 DIS: 06/13/2020 SPEC #: [id number] RECD: 06/15/20 12:38 STATUS: BALDEMAR REQ #: [id number] DIMITRI: 06/12/20 00:[address]: Carlos Cameron DEPT: IMMUNOHISTOCHEMISTRY RECD BY: Carmen Hale ENTERED: 06/15/20 12:42 SP TYPE: IMMUNO OTHR DR: Dr. Asif Drew MD Tissues: A - Axillary lymph node, NOS B - Left breast, NOS Procedures: Calponin-1(initial) CALPONIN-1 (add) CK7 (add) CK8 (add) E-CAD (add) Pankeratin (initial) Pankeratin (add) P40 (add) PHYSICIAN & [address] [address] SPECIMEN INFORMATION: Tissue Source: A - Left axillary sentinel lymph nodes, B - Left breast Clinical Info: Left breast cancer Specimen Number: [id number] A1-A5, B6, B8, B13 CPT code: 40863 x2, 35309 x16 METHODOLOGY: Deparaffinized sections of prefer/formalin-fixed tissue or PAP/DQ stained slides are incubated with monoclonal/polyclonal antibodies/oligonucleotide probes. Localization is made via biotin free immunoperoxidase method. Appropriate controls are performed and reacted as expected. Results on target cell population are indicated in the following table: RESULTS: ANTIBODY / CLONE RESULT Block A1 AE1-3 (AE1/AE3/PCK26) negative CK7 (OV-TL12/30) negative Block A2 AE1-3 (AE1/AE3/PCK26) negative CK7 (OV-TL12/30) negative Block A3 AE1-3 (AE1/AE3/PCK26) negative CK7 (OV-TL12/30) negative Block A4 AE1-3 (AE1/AE3/PCK26) negative CK7 (OV-TL12/30) negative Block A5 AE1-3 (AE1/AE3/PCK26) positive, isolated tumor cells CK7 (OV-TL12/30) positive, isolated tumor cells Block B6 Calponin-1 (YJ770T) negative * P40 (BC28) negative * Block B8 Calponin-1 (OH188U) negative * P40 (BC28) negative * E-Cad (ECH-6) positive CK8 (14jtreM20) positive Block B13 E-Cad (ECH-6) negative CK8 (70usjoL04) positive *?Positive in the area of ductal carcinoma in situ. These tests were developed and their performance characteristics determined by [facility]. They may not have been cleared or approved by the U.S. Food and Drug Administration. The FDA has determined that such clearance or approval is not necessary. The above immunohistochemical/dualISH markers are ordered and reviewed by the Pathologist. INTERPRETATION: A. Left axillary sentinel lymph nodes, biopsy: One out of five lymph nodes positive for a minute focus of metastatic isolated tumor cells. See comment. B. Left breast: Invasive ductal carcinoma (block 6 & 8). Ductal carcinoma in situ (block 6 & 8). Focal atypical lobular hyperplasia (block 13). SJ:herbert 06/19/2020 Comment: A. In block 2, one of the lymph nodes is exhausted during frozen section processing. Permanent sections shows only one lymph node. This case has been reviewed in consultation with Dr. Harvey who concurs with the above diagnosis.
--- NOTE | 2020-06-12 07:47 | NM_ITS ---
PROCEDURE: NUCLEAR MEDICINE Injection [place] Node - LEFT breast(s). REASON FOR EXAM: Female, 64 years old. Left breast cancer. TECHNIQUE: [place] node localization using radionuclide methods of the LEFT breast(s) was performed following subcutaneous administration of 1.1 mCi of of sulfur colloid Tc-99m. FINDINGS: 1.1 mCi of technetium labeled sulfur colloid was injected in 4 equal aliquots in the periareolar region. NM/Lymph Node Injection Only IMPRESSION: Subcutaneous administration of 1.1 mCi of technetium labeled sulfur colloid for sentinel node imaging. Electronically Signed: Imer Gutierrez MD at 9:35 EST , Service support ,
[2020-06-12] MEDS: Lactated Ringers 1,000 ML 100 ML IV (08:47)
--- NOTE | 2020-06-12 09:28 | PCM.HP.BLA ---
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 Carlos Cameron MD) Abnormal ultrasound of breast (Acute) Breast cancer (Acute) Abnormal mammogram of left breast (Acute) Essential hypertension (Chronic) Hyperlipidemia (Chronic) Anemia (Chronic) Anxiety (Chronic) Asthma (Chronic) CKD (chronic kidney disease) (Chronic) Chronic pain (Chronic) Fibromyalgia (Chronic) Herpes labialis (Chronic) Obesity (Chronic) Osteoporosis (Chronic) Rheumatoid arthritis (Chronic) Vitamin D deficiency (Chronic) History of pulmonary embolus (PE) (Resolved) Surgical History (Updated 06/01/20 @ 10:07 by Vicky Salcido) History of left breast biopsy (Acute ~04/2020) History of appendectomy (Resolved) History of hysterectomy (Resolved) History of left heart catheterization (Resolved 05/16/06) Family History (Updated 05/18/20 @ 07:16 by Vicky Salcido) Brother CAD (coronary artery disease) CABG Grandmother Breast cancer Aunt Breast cancer Social History (Updated 06/01/20 @ 11:[address] Carlos Cameron MD) Smoking Status: Former smoker alcohol intake: current substance use type: does not use HPI HPI HPI: KIEL ENGLISH, is a 64 F who presents to the office today for ongoing surgical care. Since her most recent appointment she did obtain a bilateral breast MRI. Based upon that information then I repeated her breast ultrasound. The index lesion of the left breast is located 5.2 cm beneath the areola and 3.7 cm superiorly. It measures 1.5 x 1.7 x 0.7 cm. The MRI demonstrated a second lesion located 4.7 cm deep to the areola and 2.4 cm superiorly. This 1 measures 0.9 x 0.7 x 0.4 cm. It is located 1.9 cm below the index lesion which has been biopsied. A repeat left breast ultrasound detects a 0.6 x 0.7 x 0.7 cm lesion 2 cm above the nipple. This appears to correlate with the second item identified on the breast MRI. At my request the patient returns today for a planned ultrasound-guided needle core biopsy of this secondary area. 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 Is patient in pain?: No Allergies Iodinated Contrast Media [CONTRASTS] Adverse Reaction (Verified 05/23/20 13:52) Hives Medications Albuterol IH (ProAir) [Proair Hfa] 1 puff INHALATION Q4H PRN PRN 08/10/13 [History Confirmed 05/23/20] Ferrous Sulfate 325 mg PO DAILY@0800 08/19/17 [History Confirmed 05/23/20] ergocalciferol (vitamin D2) 1,250 mcg (50,000 unit) capsule 50,000 unit PO Q2W cap 02/19/19 [History Confirmed 05/23/20] metoprolol tartrate 50 mg tablet 50 mg PO DAILY tab 02/19/19 [History Confirmed 05/23/20] paroxetine HCl 30 mg tablet 30 mg PO DAILY 02/19/19 [History Confirmed 05/23/20] trazodone 50 mg tablet 50 mg PO QHS PRN 02/19/19 [History Confirmed 05/23/20] acetaminophen 325 mg tablet 325 mg PO Q6H PRN 02/24/19 [History Confirmed 05/23/20] Subjective Details: 64-year-old female. She returns with her today to discuss the findings of the ultrasound-guided needle core biopsy upper outer left breast that I performed for her on May 18, 2020. The pathology shows fragments of atypical complex papillary neoplasm with necrosis and microcalcifications. 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 Is patient in pain?: No Allergies Iodinated Contrast Media [CONTRASTS] Adverse Reaction (Verified 05/18/20 07:18) Hives Medications Albuterol IH (ProAir) [Proair Hfa] 1 puff INHALATION Q4H PRN PRN 08/10/13 [History Confirmed 05/18/20] Ferrous Sulfate 325 mg PO DAILY@0800 08/19/17 [History Confirmed 05/18/20] ergocalciferol (vitamin D2) 1,250 mcg (50,000 unit) capsule 50,000 unit PO Q2W cap 02/19/19 [History Confirmed 05/18/20] metoprolol tartrate 50 mg tablet 50 mg PO DAILY tab 02/19/19 [History Confirmed 05/18/20] paroxetine HCl 30 mg tablet 30 mg PO DAILY 02/19/19 [History Confirmed 05/18/20] trazodone 50 mg tablet 50 mg PO QHS PRN 02/19/19 [History Confirmed 05/18/20] acetaminophen 325 mg tablet 325 mg PO Q6H PRN 02/24/19 [History Confirmed 05/18/20] Is last menstrual period known: No Post menopausal: Yes Patient : No PFSH Medical History (Updated 05/18/20 @ 07:[address] Carlos Cameron MD) Abnormal mammogram of left breast (Acute) Essential hypertension (Chronic) Hyperlipidemia (Chronic) Anemia (Chronic) Anxiety (Chronic) Asthma (Chronic) CKD (chronic kidney disease) (Chronic) Chronic pain (Chronic) Fibromyalgia (Chronic) Herpes labialis (Chronic) Obesity (Chronic) Osteoporosis (Chronic) Rheumatoid arthritis (Chronic) Vitamin D deficiency (Chronic) History of pulmonary embolus (PE) (Resolved) Surgical History (Updated 05/18/20 @ 07:16 by Vicky Salcido) History of left breast biopsy (Acute) History of appendectomy (Resolved) History of hysterectomy (Resolved) History of left heart catheterization (Resolved 05/16/06) Family History (Updated 05/18/20 @ 07:16 by Vicky Salcido) Brother CAD (coronary artery disease) CABG Grandmother Breast cancer Aunt Breast cancer Social History (Updated 05/18/20 @ 10:[address] Carlos Cameron MD) Smoking Status: Former smoker alcohol intake: current substance use type: does not use HPI HPI HPI: KIEL ENGLISH, is a 64 F who presents to the office today for surgical consultation regarding an abnormal left mammogram and breast ultrasound. The patient is referred by Dr. Asif Drew and a written copy of my surgical consult and recommendations will return to him 64-year-old female. G2, . Menarche at age 16. First child born when she was 20. She did breast-feed. She has had a remote stereotactic needle core biopsy by Dr. Miguel A Malin which was benign. She has no direct family members with breast cancer. No nipple discharge. She denies any chronic medical problems like myocardial infarction CVA or diabetes. She did when she was in her 20s have a pulmonary embolus. According to her this was unprovoked. She has not had any difficulty since that time. Her bilateral mammogram and ultrasound report is located below. There is felt to be a BI-RADS5 suspicious density 9 x 7 x 8 mm left breast 12 o'clock position +3 cm. No additional findings bilaterally. The patient is not able to detect anything on her own exam [facility] Services [address] [place] [id number] SCRN MAMM (CAD)W/BHAVIK BILAT MR#: [id number] Name: KIEL ENGLISH [facility] #:[id number] : 1955F 64 From: Imer Gutierrez MD PCP:Dr. Asif Drew MD Status:[facility] Study:SCRN MAMM (CAD)W/BHAVIK BILAT Date of Exam:05/11/20 Exam#[id number] Ordering Dr: hSiela Dickerson MD MAMMOGRAPHY - BILATERAL SCREENING REASON FOR EXAM: Female, 64 years old. Routine annual screening examination. PERTINENT HISTORY: Grandmother with breast cancer. Aunt with breast cancer. Remote right stereotactic breast biopsy. TECHNIQUE: Digital bilateral breast bhavik (3D mammographic acquisition) in the CC and MLO projections. 2-D mediolateral oblique (MLO) and craniocaudad (CC) views of both breasts were obtained. CAD: Full Field Digital Mammography with Computer Added Detection was performed. COMPARISON: Comparison is made with prior examination dated 04/11/2017 and 12/26/2015. FINDINGS: Breast Composition: The breasts are heterogeneously dense, which may obscure small masses. There now is evidence of a 1.5 cm x 0.8 cm spiculated nodule in the upper deep central portion of the left breast. Faint calcifications are seen within it. Correlation with the ultrasound is recommended for further evaluation. No other significant abnormalities are identified. BI/SCRN MAMM (CAD)W/BHAVIK BILAT IMPRESSION: New 1.5 cm x 0.8 cm. Nodule in the deep upper central portion of the left breast. Faint microcalcifications are seen. Correlation with ultrasound is recommended. ASSESSMENT CATEGORY: BIRADS Category 0: Incomplete. Need additional imaging evaluation. A letter regarding these results will be sent to the patient by the facility within 30 days. Approximately 10% of breast cancers are not detected by mammography. A normal mammogram should not delay biopsy of a clinically suspicious abnormality. [id number] Electronically Signed: Imer Gutierrez, at 13:55 EST , Service support , [facility] Imaging Services [address] [place] [address] Breast Limited Unilateral MR#: [id number] Name: KIEL ENGLISH [facility] #:[id number] : 1955F [id number] From: Imer Gutierrez MD PCP:Dr. Asif Drew MD Status:REG CLI Study:Breast Limited Unilateral Date of Exam:05/15/20 Exam#[id number] Ordering Dr: Shiela Dickerson MD STUDY: ULTRASOUND BREAST - LEFT REASON FOR EXAM: Female, 64 years old. Abnormal screening mammogram. TECHNIQUE: Axial and longitudinal images of the LEFT breast were performed with a high resolution ultrasound transducer. # OF IMAGES: [id number] COMPARISON: Comparison is made with prior mammogram dated 05/11/2020. FINDINGS: LEFT Breast: The mammographic abnormality corresponds to a 9 mm x 7 mm x 8 mm irregular hypoechoic nodule with posterior shadowing at the 12 o''clock position of the breast at 3 cm from the nipple. Increased vascularity is seen. A biopsy is recommended. US/Breast Limited Unilateral IMPRESSION: The mammographic abnormality corresponds to a 9 mm x 7 mm x 8 mm irregular hypoechoic solid nodule with shadowing at the 12 o''clock position of the breast at 3 cm from the nipple. A biopsy recommended. ASSESSMENT CATEGORY: BIRADS Category 5: Highly Suggestive of Malignancy - Appropriate Action Should Be Taken. A letter regarding these results will be sent to the patient by the facility within 30 days. Electronically Signed: Imer Gutierrez MD at 15:54 EST , Service support , HPI HPI HPI: KIEL ENGLISH, is a 64 F who presents to the office today for ROS General General: Yes weight change and fatigue; no appetite, colon cancer, breast cancer or weakness HEENT HEENT: No difficulty swallowing, eye injury, eye surgery, swollen glands or hoarseness Endo Endocrine: No thyroid disease, diabetes mellitus, thyroid cancer, Hair loss, heat intolerance or cold intolerance Breast Breast: Yes abnormal mammogram and abnormal US; no left breast lump, right breast lump, nipple discharge, breast pain or breast enlargement Musc Musculoskeletal: No back problems, arthritis, rheumatoid arthritis, gout or joint pain Cardio Cardiovascular: No murmur, pacemaker, heart disease, atrial fibrillation, high blood pressure, heart attack, heart stent, palpitations, shortness of breat with exertion or chest pain Psych Psychiatric: Yes depression and anxiety; no hearing voices Resp Respiratory: No shortness of breath, No sleep apnea, No cough, No COPD, Yes asthma, No emphysema, No wheezing Gastro Gastrointestinal: No abdominal pain, Yes nausea or vomiting, Yes diarrhea, No constipation, No blood in stool, No acid reflux, Yes hemorrhoids, No ulcers, No gallbladder problem, No black,tarry stools Koko Hematologic: No blood thinners, No blood disorders, No bleeding, Yes anemia, No blood clots Neuro Neurologic: No weakness Exam Const General: cooperative, healthy appearing, comfortable, no acute distress Nutritional Appearance: overweight Orientation: alert, awake [facility] Head: normal to inspection Eyes General: appearance normal, both eyes and all related structures Chest Breast Palpation: No nipple discharge Other: Right breast: No focal mass. No nipple discharge. No axillary or clavicular adenopathy Left breast: Fullness noted upper mid left breast. No distortion. No tenderness. No nipple discharge. No axillary or clavicular adenopathy Resp Effort & Inspection: normal respiratory effort Auscultation: clear to auscultation bilaterally Cardio Rate: regular rate Rhythm: regular rhythm Heart Sounds: no murmurs GI Palpation: soft, no hepatosplenomegaly Auscultation: normal bowel sounds Musc Cervical Spine: normal cervical lordosis Skin General: no rashes or lesions noted Neuro Cognition: normal cognition Extrem General: no calf tenderness Psych Affect: normal affect Office Procedures Biopsy Provider Documentation Ultrasound-guided needle core biopsy upper mid left breast 12 o'clock position +3 cm Timeout and informed consent was obtained. The patient was taken to the procedure room and placed supine on the table. The left breast was prepped with chlorhexidine. Ultrasound was performed demonstrating the somewhat irregular density 12 o'clock position +3 cm. Under ultrasound guidance 1% lidocaine mixed 50-50 with 0.5% Marcaine was used as a local anesthetic. Total of 8 cc was used. Local was instilled. A small stab incision was created. A 14-gauge Monopty needle was advanced to prefire depth. Pre and post fire images were obtained. A single core was obtained. A marking clip was left in position under ultrasound guidance. Pressure was held for hemostasis. Steri-Strip Telfa OpSite dressing applied. The specimen was immediately transferred to formalin for analysis. She was given activity wound care instructions. Carlos Cameron M.D., F.A.C.S. Biopsy Breast Biopsy: [id number] US Guidance Procedure Time Out Time Out Informed consent given: Yes Consent signed: Yes Time out checklist: patient, procedure, site marked/identified, positioning of patient, supplies available, allergies confirmed, team agrees on procedure Time out staff in room: Yes Time out verified: Yes Time out date: 05/18/20 Time out time: 07:19 Assessment & Plan Problems 1. Abnormal mammogram of left breast R92.8 Plan 64-year-old female with abnormal left breast mammogram and ultrasound with the density seen 12 o'clock position +3 cm. This is felt to be highly suspicious BI-RADS 5. I proposed for her today an ultrasound-guided needle core biopsy. She is aware of the technique, benefit, risk, alternatives and we proceeded today for definitive diagnosis. There were no apparent complications with the procedure. She will return in 4 days time for pathology review and further instructions. This area is highly suspicious. I would anticipate likely bilateral breast MRI because of her breast density. Copy: Dr. Asif Cameron M.D., F.A.C.S. Orders Orders: Biopsy Today R92.8 Coding Level of Care Code Attention Aydin Diagnoses Abnormal mammogram of left breast R92.8 Additional Codes Biopsy - Breast Biopsy: 28587 US Guidance (31214) Objective Details: Left breast: Nicely healing site upper outer quadrant left breast. Steri-Strips in place. Mild amount of ecchymosis. Nontender. No signs of infection Assessment & Plan Problems 1. Breast cancer C50.919 Plan 64-year-old female. She had a ultrasound-guided needle core biopsy upper outer quadrant left breast. Findings seem to be highly suspicious for papillary carcinoma. Necrosis and microcalcifications were identified. It was described as being atypical. I have proposed for her a bilateral breast MRI. I have provided her verbal and written information regarding breast conservation surgery and compared and contrasted that to a mastectomy. I am proposing for her a stereotactic wire localization upper outer quadrant left breast followed by nuclear tracer and blue dye left axillary sentinel lymph node biopsy and left breast wire localized lumpectomy. We did briefly discuss potential need to convert to a more extensive axillary dissection. She is aware of technique, benefit, risk, alternatives. She has had an opportunity to ask and have questions answered. She is aware that if this is papillary carcinoma that it tends to have a better course and outcome. She is aware that I will be anticipating involving hematology oncology and radiation oncology as well. She has been provided written copies of the office note and procedure note and pathology in addition to written descriptive information regarding breast conservation surgery. She has had an opportunity to ask and have questions answered. We will schedule and proceed at her discretion. Copy: Dr. Asif Cameron M.D., F.A.C.S. HPI HPI HPI: KIEL ENGLISH, is a 64 F who presents to the office today for ROS General General: Yes weight change and fatigue; no appetite, colon cancer, breast cancer or weakness HEENT HEENT: No difficulty swallowing, eye injury, eye surgery, swollen glands or hoarseness Endo Endocrine: No thyroid disease, diabetes mellitus, thyroid cancer, Hair loss, heat intolerance or cold intolerance Breast Breast: Yes abnormal mammogram and abnormal US; no left breast lump, right breast lump, nipple discharge, breast pain or breast enlargement Musc Musculoskeletal: No back problems, arthritis, rheumatoid arthritis, gout or joint pain Cardio Cardiovascular: No murmur, pacemaker, heart disease, atrial fibrillation, high blood pressure, heart attack, heart stent, palpitations, shortness of breat with exertion or chest pain Psych Psychiatric: Yes depression and anxiety; no hearing voices Resp Respiratory: No shortness of breath, No sleep apnea, No cough, No COPD, Yes asthma, No emphysema, No wheezing Gastro Gastrointestinal: No abdominal pain, Yes nausea or vomiting, Yes diarrhea, No constipation, No blood in stool, No acid reflux, Yes hemorrhoids, No ulcers, No gallbladder problem, No black,tarry stools Koko Hematologic: No blood thinners, No blood disorders, No bleeding, Yes anemia, No blood clots Neuro Neurologic: No weakness Exam Chest Breast Palpation: No nipple discharge Cardio Heart Sounds: no murmurs Office Procedures Biopsy Provider Documentation Ultrasound-guided needle core biopsy left breast 12:00 +2 cm The patient had a secondary lesion identified in an MRI. It was felt to be 1.9 cm from the index lesion and the new lesion is felt to be at 12:00 +2 cm. She was taken to the procedure room placed on the table the left breast was prepped and draped. Ultrasound was performed. What was felt to represent the very small 9 x 7 x 4 mm density was identified. Under ultrasound guidance 1% lidocaine mixed 50-50 with 0.5% Marcaine was instilled as a local anesthetic. Total of 10 cc was used. A small stab incision was created. A 14-gauge Monopty needle was advanced to prefire depth. Pre and post fire films were obtained. 7 different cores were obtained. A marking clip was left in position. Pressure was held for hemostasis. She tolerated procedure well without apparent complication. The specimens were immediately transferred to formalin. Steri-Strip Telfa OpSite dressing applied. Carlos Cameron M.D., F.A.C.S. Biopsy Breast Biopsy: [id number] US Guidance Procedure Time Out Time Out Informed consent given: Yes Consent signed: Yes Time out checklist: patient, procedure, site marked/identified, positioning of patient, supplies available, allergies confirmed, team agrees on procedure Time out staff in room: Yes Time out verified: Yes Time out date: 06/01/20 Time out time: 10:30 Assessment & Plan Problems 1. Abnormal ultrasound of breast R92.8 Plan A second ultrasound-guided biopsy left breast was performed this time at the left breast 12 o'clock position +2 cm. The original lesion 12:00 +4 cm was noted and the secondary lesions inferior to that. This lesion much more difficult to visualize. Core biopsy was felt to have been achieved. A marking clip was left in position. This point I am recommending hematology oncology consultation prior to surgery. Her tentative surgery date of June 06 will be postponed. With the potential multifocal disease I am leaning toward a more aggressive surgical intervention in the form of a total mastectomy with axillary sentinel lymph node biopsy. The patient is aware and actually already had that as a mindset. We will await pathology. Hematology oncology is willing to see the patient in short order as well. Appreciate the assistance from Dr. Bonilla Rubio Copy: Dr. Asif Drew and Dr. Bonilla Cameron M.D., F.A.C.S. Orders Referrals: Oncology C50.919 Coding Level of Care Code Attention Basic Acoustic Analyst Diagnoses Abnormal ultrasound of breast R92.8 Additional Codes Biopsy - Breast Biopsy: 49592 US Guidance (59447) After discussion with hematology oncology Dr. Simental the patient has elected to pursue a left mastectomy with left axillary blue dye and nuclear tracer sentinel lymph node biopsy with conversion to a left axillary lymph node dissection if indicated. She is aware of the technique, benefit, risk, alternatives. She has had an opportunity to ask and have questions answered. We will proceed as noted. Carlos Cameron M.D., F.A.C.S. Procedure Criteria Procedure Type: Elective COVID Risk Discussion: The surgeon/proceduralist and patient have discussed in detail the risk of exposure to and/or potential harm posed by the COVID-19 virus with having a surgery/procedure at this time versus the risk of delaying the surgery/procedure. It is not possible to know either the risk of delaying the surgery or procedure or chance of getting an infection with perfect accuracy, but a joint decision was made between the patient and the surgeon/proceduralist to proceed at this time with the scheduled surgery/procedure as indicated on the consent form.
--- NOTE | 2020-06-12 09:46 | PCM.DC.BS ---
<Carlos Cameron - Last Filed: 06/12/20 09:46> Discharge Diet: No Restrictions Discharge Activity: May Not Drive - for 2-3 days or while taking narcotic pain meds. May shower in (days): 8 - May shower 1 day after drains removed Lifting Restrictions: 10 pounds for 1 week. Call your doctor if your incision/area has: Continuous Slow Oozing, Sudden Increased Bleeding Call your doctor if you observe: Fever of 101 or Higher Suture Line Care: Avoid Pulling/Pushing, Avoid Pinching/Bending Remove Dressing in (days):: 1 - Remove bulky dressing tomorrow. May leave any opsite dressing for 3-4 days. Keep dressing in place until your follow-up appointment. Additional Dressing/Incision Instructions:: Please cleanse the drain sites with a Q-tip and peroxide daily and reapply clean dry gauze. Reapply the bias ply compression wrap. The incision itself does not require any specific treatment. Empty, measure, and record the amount of drain output. Allergies/Adverse Reactions: Allergies latex Allergy (Verified 06/06/20 10:51) Rash Iodinated Contrast Media [CONTRASTS] Adverse Reaction (Verified 06/06/20 10:51) Hives Medications to take at Discharge Albuterol IH (ProAir) [Proair Hfa] 1 puff INHALATION Q4H PRN PRN 08/10/13 Ferrous Sulfate 325 mg PO DAILY@0800 08/19/17 ergocalciferol (vitamin D2) 1,250 mcg (50,000 unit) capsule 50,000 unit PO .Q10 DAYS cap 02/19/19 metoprolol tartrate 50 mg tablet 50 mg PO DAILY tab 02/19/19 paroxetine HCl 30 mg tablet 30 mg PO DAILY 02/19/19 trazodone 50 mg tablet 50 mg PO QHS PRN 02/19/19 acetaminophen 325 mg tablet 325 mg PO Q6H PRN 02/24/19 Ibuprofen 200 mg PO PRN PRN 05/31/20 Cannabidiol (Cbd) [Epidiolex] 0.25 mg PO DAILY PRN 06/06/20 Hydrocodone Bitart/Apap 5-325 [[place] 5/325] 1 tablet PO Q6H PRN PRN 4 Days #12 tablet 06/13/20 The following prescriptions were given: Hydrocodone Bitart/Apap 5-325 [[place] 5/325] 1 tablet PO Q6H PRN PRN 4 Days #12 tablet PRN Reason: Pain Score 4-10 Transmission Status: Received by [facility] Primary Care Physician: Asif Drew MD [Primary Care Provider] - Please Follow Up With: Carlos Cameron MD - [phone] When: Call for office appointment as instructed <Belen Camargo - Last Filed: 06/13/20 08:41> Additional Instructions: Please see additional discharge instructions for exercises and additional post-op instructions When: Friday, please contact office for an appointment Proposed Discharge Date: 06/13/20
[2020-06-12] MEDS: Cefazolin 2 GM in 0.9% Normal Saline 100 ML IV (09:57)
[2020-06-12] MEDS: Isosulfan Blue 1% 5 ML Vial (10:00)
--- NOTE | 2020-06-12 12:08 | PCM.OPRPT ---
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 64-year-old female was taken to the operating placed supine on the table underwent general anesthesia. 2 g of Ancef were given intravenously. The left arm was carefully wrapped with soft roll and placed at right angles of the table. The left breast was cleansed with alcohol and then 2 cc of isosulfan blue dye was injected. Massage was performed for 3 minutes. The patient had previously had nuclear tracer injected per radiology. The left breast and axilla were sterilely prepped and draped. A transverse oblique incision so as to incorporate the nipple areolar complex was performed. The superior flap was created using sharp dissection blunt dissection electrocautery. Hemostasis obtained with electrocautery and hemoclips and 3-0 Vicryl suture ligatures. Access was then gained to the axilla. Blue dye lymphatic tracking was identified. Using a combination of blue dye tracking and the neoprobe and nuclear tracer I identified 3 different areas of combined blue dye and nuclear tracer abnormality. These 3 separate areas were dissected free using blunt dissection and sharp dissection. Hemostasis attained with hemoclips. Electrocautery was used were indicated. The lymph node tissue was removed it was inspected with the neoprobe and then based upon a 10-second count I reinspected the axilla. All of the visualized blue lymph nodes and all of the abnormal nuclear tracer identified lymphatic tissue was removed. There was no remaining abnormal nuclear activity. I did not see any remaining blue dye lymph nodes. There was no residual palpable adenopathy. No preoperative lymph nodes had been marked or clipped. Inferior flap was subsequently performed. The breast tissue was dissected off the left chest wall using electrocautery taking the extra's fascia with the specimen. Dissection was formed out to the axilla. Where needed intercostal penetrators were secured with 3-0 Vicryl suture ligatures. The intercostal brachial cutaneous nerve to the upper arm was visualized and carefully preserved during the dissection. Thoracodorsal and long thoracic nerves were not identified during the sentinel node dissection. The specimen now completely removed en bloc was marked with a silk suture at the axillary tail. Hemostasis was achieved with electrocautery and hemoclips were indicated. The chest wall and axilla were irrigated with sterile water. 2 stab incision was made inferior lateral to the wound and 2 round NAZIA drain 15 Bangl[place] were exited. They were secured to the skin with 3-0 nylon. The axillary drain was shortened to length. The flaps were then approximated to each other with interrupted 3-0 Vicryl subdermal stitches and multiple pleating stitches to approximate the flaps of the chest wall were performed with 3-0 Vicryl. The flaps appeared to be viable. There was good approximation of the tissue to the chest wall and to the superior and inferior flaps. The skin edges were approximated then and finally Steri-Strips Telfa bulky fluff dressings and bias ply wrap was applied. Sponge and instrument and needle counts were reported to the surgeon to be correct. Specimen left axillary sentinel lymph nodes x6 as reported by the pathologist all negative. Left total mastectomy specimen. Drains 215 round NAZIA. Blood loss 200 cc of blood loss The patient was taken to recovery area in satisfactory edition without apparent complication Carlos Cameron M.D., F.A.C.S. Type of Anesthesia:: General Anesthesiologist: Xavier King
--- NOTE | 2020-06-12 14:25 | NURSING ---
c.[email or web address] connected to patient
[2020-06-12] MEDS: Morphine 4 MG/ML Syringe IV (14:37)
[2020-06-12] MEDS: Ondansetron 4 MG/2 ML Vial IV (17:29)
[2020-06-12] MEDS: Morphine 2 MG/ML Syringe IV (17:30)
[2020-06-12] MEDS: 0.9% Saline Lock 10 ML Syringe IV (17:30)
--- NOTE | 2020-06-12 21:02 | NURSING ---
walked with pt- 2 full laps in the bartholomew. tolerated well. returned to bed, HOB elevated & scd's applied. pt stated that she walked a full lap in the bartholomew with dayshift.
[2020-06-12] MEDS: HYDROcodone Bitartrate/Apap 5/325 Tablet PO (21:09)
[2020-06-12] MEDS: traZODone 50 MG Tablet PO (22:10)
[2020-06-13 01:55] VITALS: BP 103/44; PULSE 69; RESP 16; TEMP 36.6; O2SAT 98
[2020-06-13] MEDS: HYDROcodone Bitartrate/Apap 5/325 Tablet PO ×2 (02:12→07:38)
[2020-06-13 04:21] VITALS: O2SAT 93
[2020-06-13 06:25] VITALS: O2SAT 84
[2020-06-13 06:27] VITALS: BP 107/48; PULSE 79; RESP 16; TEMP 36.9; O2SAT 94
[2020-06-13 07:36] VITALS: O2SAT 98
--- NOTE | 2020-06-13 08:45 | PN.SURG_ITS ---
Patient Problems: Active and Suspected Problems (Last Updated 06/06/20 @ 16:05 by Vicky Salcido) Cancer of left female breast (Acute) Subjective: Pt comfortable and doing well this a.m. Last night pt was painful and not responding well to morphine so she was kept overnight and is much better now. - Physical Exam Vitals/I&O's: Vital Signs Temp Pulse Resp BP Pulse Ox 98.4 F 79 16 107/48 L 94 06/13/20 06:27 06/13/20 06:27 06/13/20 06:27 06/13/20 06:27 06/13/20 06:27 Oxygen Flow Rate (L/min) 1 Oxygen Delivery Method Nasal Cannula Weight: 187 lb 9.814 oz Body Mass Index (BMI) 31.2 Intake and Output for Last 24 Hours 06/11/20 06/12/20 06/13/20 23:59 23:59 23:59 Intake Total 1023.33 / 1023.33 100 / 100 Output Total 710 / 710 815 / 815 Balance 313.33 / 313.33 -715 / -715 General: Alert, Oriented x3, Cooperative Current Medications Acetaminophen (Acetaminophen 325 Mg Tablet) 650 mg PO Q6H PRN PRN PRN Reason: Pain Score 1-10 Hydrocodone Bitart/Acetaminophen (Hydrocodone Bitartrate/Apap 5/325 Tablet) 1 - 2 tablet PO Q4H PRN PRN PRN Reason: Pain Score 4-10 Last Admin: 06/13/20 07:38 Dose: 2 tablet Documented by: Albuterol Sulfate (Albuterol 2.5 Mg/3 Ml Vial.Neb.) 2.5 mg INHALATION Q4H PRN PRN PRN Reason: Asthma Lactated Ringer's () 1,000 mls @ 30 mls/hr IV .[id number] CARSON Last Admin: 06/12/20 22:07 Dose: Not Given Documented by: Metoprolol Tartrate (Metoprolol Tartrate 50 Mg Tablet) 50 mg PO DAILY [facility] Morphine Sulfate (Morphine 2 Mg/Ml Syringe) 2 - 4 mg IV Q1H PRN PRN PRN Reason: Pain Score 1-10 Last Admin: 06/12/20 17:30 Dose: 2 mg Documented by: Morphine Sulfate (Morphine 4 Mg/Ml Syringe) 2 - 4 mg IV Q1H PRN PRN PRN Reason: Pain Score 1-10 Last Admin: 06/12/20 14:37 Dose: 4 mg Documented by: Ondansetron HCl (Ondansetron 4 Mg/2 Ml Vial) 4 mg IV Q8H PRN PRN PRN Reason: NAUSEA Last Admin: 06/12/20 17:29 Dose: 4 mg Documented by: Paroxetine HCl (Paroxetine 10 Mg Tablet) 30 mg PO DAILY [facility]SON Sodium Chloride (0.9% Saline Lock 10 Ml Syringe) 10 - 40 ml IV UD PRN PRN Reason: SALINE FLUSH Last Admin: 06/12/20 17:30 Dose: 20 ml Documented by: Trazodone HCl (Trazodone 50 Mg Tablet) 50 mg PO QHS PRN PRN PRN Reason: SLEEP Last Admin: 06/12/20 22:10 Dose: 50 mg Documented by: Medical Necessity - Tobacco Use Smoking Status: Former smoker Tobacco Use: Non-smoker Assessment/Plan All Active Problems (Last Updated 06/06/20 @ 16:05 by Vicky Salcido) Fibromyalgia (Acute) Personal history of colon cancer (Acute) Cancer of left female breast (Acute) Chest pain (Acute) Weakness (Acute) Fatigue (Acute) Near syncope (Acute) Breast cancer (Acute) Agree with discharge Will see in office on Friday 06/16
--- NOTE | 2020-06-13 08:52 | PCM.PN.SRG ---
Patient Problems: Active and Suspected Problems (Last Updated 06/06/20 @ 16:05 by Vicky Salcido) Cancer of left female breast (Acute) Subjective: Patient was evaluated resting comfortably in bed. She denies nausea, vomiting this morning. She notes some discomfort. She is urinating well. - Physical Exam Vitals/I&O's: Vital Signs Temp Pulse Resp BP Pulse Ox 98.4 F 79 16 107/48 L 94 06/13/20 06:27 06/13/20 06:27 06/13/20 06:27 06/13/20 06:27 06/13/20 06:27 Oxygen Flow Rate (L/min) 1 Oxygen Delivery Method Nasal Cannula Weight: 187 lb 9.814 oz Body Mass Index (BMI) 31.2 Intake and Output for Last 24 Hours 06/11/20 06/12/20 06/13/20 23:59 23:59 23:59 Intake Total 1023.33 / 1023.33 100 / 100 Output Total 710 / 710 815 / 815 Balance 313.33 / 313.33 -715 / -715 General: Alert, Oriented x3, Cooperative Skin: Incision - c/d/i left chest. No active bleeding noted. NAZIA drains intact with bloody fluid noted Current Medications Acetaminophen (Acetaminophen 325 Mg Tablet) 650 mg PO Q6H PRN PRN PRN Reason: Pain Score 1-10 Hydrocodone Bitart/Acetaminophen (Hydrocodone Bitartrate/Apap 5/325 Tablet) 1 - 2 tablet PO Q4H PRN PRN PRN Reason: Pain Score 4-10 Last Admin: 06/13/20 07:38 Dose: 2 tablet Documented by: Albuterol Sulfate (Albuterol 2.5 Mg/3 Ml Vial.Neb.) 2.5 mg INHALATION Q4H PRN PRN PRN Reason: Asthma Lactated Ringer's () 1,000 mls @ 30 mls/hr IV .[id number] CARSON Last Admin: 06/12/20 22:07 Dose: Not Given Documented by: Metoprolol Tartrate (Metoprolol Tartrate 50 Mg Tablet) 50 mg PO DAILY [facility] Morphine Sulfate (Morphine 2 Mg/Ml Syringe) 2 - 4 mg IV Q1H PRN PRN PRN Reason: Pain Score 1-10 Last Admin: 06/12/20 17:30 Dose: 2 mg Documented by: Morphine Sulfate (Morphine 4 Mg/Ml Syringe) 2 - 4 mg IV Q1H PRN PRN PRN Reason: Pain Score 1-10 Last Admin: 06/12/20 14:37 Dose: 4 mg Documented by: Ondansetron HCl (Ondansetron 4 Mg/2 Ml Vial) 4 mg IV Q8H PRN PRN PRN Reason: NAUSEA Last Admin: 06/12/20 17:29 Dose: 4 mg Documented by: Paroxetine HCl (Paroxetine 10 Mg Tablet) 30 mg PO DAILY [facility] Sodium Chloride (0.9% Saline Lock 10 Ml Syringe) 10 - 40 ml IV UD PRN PRN Reason: SALINE FLUSH Last Admin: 06/12/20 17:30 Dose: 20 ml Documented by: Trazodone HCl (Trazodone 50 Mg Tablet) 50 mg PO QHS PRN PRN PRN Reason: SLEEP Last Admin: 06/12/20 22:10 Dose: 50 mg Documented by: Medical Necessity - Tobacco Use Smoking Status: Former smoker Tobacco Use: Non-smoker Assessment/Plan All Active Problems (Last Updated 06/06/20 @ 16:05 by Vicky Salcido) Fibromyalgia (Acute) Personal history of colon cancer (Acute) Cancer of left female breast (Acute) Chest pain (Acute) Weakness (Acute) Fatigue (Acute) Near syncope (Acute) Breast cancer (Acute) I am following this patient in conjunction with Dr. aCmeron. S/p left mastectomy with sentinel lymph node biopsy Patient progressing well Ready for discharge Inpatient E&M: 16025 Subs Hosp L1 - No charge
--- NOTE | 2020-06-13 08:57 | NURSING ---
Dressing changed to the left chest and NAZIA drain dressings changed (see intervention). Pt tolerated well. Dr Cameron in to see patient. Plan is for patient to be discharged home later today.
[2020-06-13 10:14] VITALS: PULSE 79
[2020-06-13] MEDS: Ondansetron 4 MG/2 ML Vial IV (10:14)
[2020-06-13] MEDS: Metoprolol Tartrate 50 MG Tablet PO (10:14)
[2020-06-13] MEDS: 0.9% Saline Lock 10 ML Syringe IV (10:14)
[2020-06-13] MEDS: PARoxetine 10 MG Tablet 30 MG PO (10:15)
--- NOTE | 2020-06-13 11:05 | PHA.DC.MC ---
Pharmacy Service has performed discharge medication reconciliation and counseling for this patient. 1. HYDROCODONE/ACETAMINOPHEN 5/325MG 1T PO Q6H PRN PAIN 4-10 The patient's discharge medication list was reviewed for discrepancies and discrepancies were resolved. Home Medications Albuterol IH (ProAir) [Proair Hfa] 1 puff INHALATION Q4H PRN PRN 08/10/13 Ferrous Sulfate 325 mg PO DAILY@0800 08/19/17 ergocalciferol (vitamin D2) 1,250 mcg (50,000 unit) capsule 50,000 unit PO .Q10 DAYS cap 02/19/19 metoprolol tartrate 50 mg tablet 50 mg PO DAILY tab 02/19/19 paroxetine HCl 30 mg tablet 30 mg PO DAILY 02/19/19 trazodone 50 mg tablet 50 mg PO QHS PRN 02/19/19 acetaminophen 325 mg tablet 325 mg PO Q6H PRN 02/24/19 Ibuprofen 200 mg PO PRN PRN 05/31/20 Cannabidiol (Cbd) [Epidiolex] 0.25 mg PO DAILY PRN 06/06/20 Hydrocodone Bitart/Apap 5-325 [[place] 5/325] 1 tab PO Q6H PRN PRN 4 Days #12 tab 06/13/20 The patient was counseled on the following discharge medications and changes in medications for homegoing were reviewed. The Reason for Use, instructions for use, and potential side effects were reviewed for all new medications. The patient's questions regarding all of their medications were answered. The patient was able to verbally demonstrate an understanding of their discharge medications.
== END 2020-06-13 13:03 | disposition home or self-care (01) ==
LOC: SDC 13:06 → MS3 13:06
PROVIDERS: Admitting Provider Surgery; PCP Family Medicine; Referring Provider Surgery; Visit Provider Surgery
PROC: (CPT 19307; principal; 2020-06-12 09:45)
DX: C50.112 Malignant neoplasm of central portion of left female breast (principal); Z20.828 Contact with and (suspected) exposure to other viral communicable diseases; Z17.0 Estrogen receptor positive status [ER+]; E78.5 Hyperlipidemia, unspecified; I12.9 Hypertensive chronic kidney disease with stage 1 through stage 4 chronic kidney disease, or unspecified chronic kidney disease; N18.9 Chronic kidney disease, unspecified; J45.909 Unspecified asthma, uncomplicated; M79.7 Fibromyalgia; D64.9 Anemia, unspecified; E66.9 Obesity, unspecified; E55.9 Vitamin D deficiency, unspecified; G89.29 Other chronic pain; Z68.31 Body mass index [BMI] 31.0-31.9, adult; M06.9 Rheumatoid arthritis, unspecified; Z86.711 Personal history of pulmonary embolism; Z79.899 Other long term (current) drug therapy; Z87.891 Personal history of nicotine dependence; Z80.3 Family history of malignant neoplasm of breast
CPT/HCPCS: 00400; 19303; 38525; 36415; 38792; 71046; 80053; 85027; 87426; 88305; 88307; 88331; 88332; 88341; 88342; 93005; 94762; 96374; 96375; 96376; 97802; 99218; A9541; C9803; J7120; A4216; G0378; G0379; J2405; Q9968

== ENCOUNTER 2020-07-11 07:27 | Outpatient (RCR) | payer MEDICARE, BC, SELFPAY ==
[2020-07-04 13:58] VITALS: BMI 30.9
[2020-07-11] MEDS: COVID-19 VACC, MRNA(PFIZER)/PF 30 MCG/0.3 ML SYRINGE IM (12:18)
[2020-08-01] MEDS: COVID-19 VACC, MRNA(PFIZER)/PF 30 MCG/0.3 ML SYRINGE IM (12:10)
== END 2020-10-03 23:59 ==
LOC: IMMUN 07:27
PROVIDERS: PCP Family Medicine; Visit Provider Family Medicine
DX: Z23 Encounter for immunization (principal)
CPT/HCPCS: 0001A; 0002A; 91300

== ENCOUNTER → 2020-07-13 17:27 | Outpatient (CLI) | payer MEDICARE, BC, SELFPAY ==
[2020-07-04 13:58] VITALS: BMI 30.9
--- NOTE | 2020-07-13 17:35 | MRI_ITS ---
STUDY: MRI BRAIN WITH AND WITHOUT CONTRAST REASON FOR EXAM: Female, 64 years old. NEW ONSET DAILY HEADACHES TECHNIQUE: Standardized multiplanar fat and water weighted pulse sequences were obtained. IV DOTAREM 15CC was administered for the contrast portion of the examination. COMPARISON: None. FINDINGS: Normal size of the ventricles and extra-axial spaces for the patient''s age. Normal white matter tracts of the supratentorial brain. Normal bilateral basal ganglia. Normal thalami. There is no extra-axial fluid accumulation. Normal flow voids within the major intracranial circulation suggesting patency by spin echo criteria. Normal venous enhancement. There is no enhancing intra-axial or extra-axial abnormality. Normal sella turcica, pituitary gland, infundibular stalk, optic chiasm and hypothalamus. Normal tectal plate and pineal gland. Low signal changes are seen within the inferior frontal lobes on the gradient echo weighted imaging sequence which may represent hemosiderin deposition due to old posttraumatic changes. However clinical correlation is recommended in this regard Normal midbrain, olga and medulla. Normal cerebellum. Normal basal cisterns. Normal bilateral temporal bones. Normal bilateral internal auditory canals. Postsurgical changes of the orbits.. Minor mucosal thickening of the ethmoid air cells bilaterally.. Normal calvarium and skull base. Normal visualized soft tissue structures. Normal visualized upper cervical spine. MRI/Brain W/WO Contrast IMPRESSION: Low signal changes within the inferior frontal lobes on gradient echo weighted imaging sequence possibly representing hemosiderin due to old posttraumatic changes.. Otherwise normal MRI of the brain with and without contrast Mild bilateral chronic ethmoid sinus disease Electronically Signed: Harpreet Gao MD at 22:43 EDT , Service support ,
[2020-07-13 18:11] LABS: CREATININE FINGERSTICK 1.2 mg/dL (0.55-1.02)
== END ==
PROVIDERS: PCP Family Medicine; Referring Provider Internal Medicine Hematology & Oncology; Visit Provider Internal Medicine Hematology & Oncology
DX: G44.52 New daily persistent headache (NDPH) (principal)
CPT/HCPCS: 70553; A9575

== ENCOUNTER 2020-08-24 13:23 | Emergency (ER) | payer MEDICARE, BC, SELFPAY ==
[2020-08-24] VITALS (7 sets, daily range): BP systolic 121–222; BP diastolic 79–118; PULSE 44–58; RESP 12–18; TEMP 36.7; O2SAT 94–96; BMI 31.8; BMI 32.3
--- NOTE | 2020-08-24 14:33 | EKG12_ITS ---
Test Reason : CP Blood Pressure : / mmHG Vent. Rate : 049 BPM Atrial Rate : 049 BPM P-R Int : 152 ms QRS Dur : 086 ms QT Int : 418 ms P-R-T Axes : 050 028 056 degrees QTc Int : 377 ms Sinus bradycardia Otherwise normal ECG Confirmed by ENDER DAVIS, AARON ([id number]), content editor MARY OSCAR ([id number]) on 08/28/2020 12:20:25 PM Referred By: CADEN Confirmed By:AARON HANDLEY MD
--- NOTE | 2020-08-24 14:33 | CT_ITS ---
STUDY: CT BRAIN WITHOUT CONTRAST REASON FOR EXAM: Female, 64 years old. Frontal headaches with visual changes. Chest pain. RADIATION DOSAGE (If Supplied By Facility): CTDIvol = ( 44.99 ) mGy, DLP = ( 745.59 ) mGycm TECHNIQUE: Transaxial CT imaging of the brain was performed without administration of intravenous contrast material. Individualized dose optimization techniques were used for this CT. COMPARISON: No relevant priors. FINDINGS: Normal soft tissue structures. Normal calvarium. There is mild cerebral atrophy with widening of the extra-axial spaces and ventricular dilatation. Normal white matter tracts of the cerebral hemispheres. There are small punctate calcifications of the basal ganglia which are seen in the aging brain as a normal variant. Normal brainstem. Normal cerebellum. There is no intracranial hemorrhage. There are no findings of an acute ischemic infarction. Normal visualized paranasal sinuses. CT/Brain/Head without Contrast IMPRESSION: Chronic involutional changes of the brain. Electronically Signed: Imer Gutierrez MD at 15:16 EDT , Service support ,
--- NOTE | 2020-08-24 14:36 | RAD_ITS ---
STUDY: X-RAY CHEST REASON FOR EXAM: Female, 64 years old. Chest pain. TECHNIQUE: Single AP portable view of the chest. COMPARISON: Comparison is made with prior study dated 06/01/2020. FINDINGS: EKG electrodes are seen. The patient is status post left mastectomy and left axillary node dissection. The lungs are clear and expanded. There is no demonstrated pleural abnormality. Normal size heart. Normal mediastinum and zakiya. Normal visualized pulmonary arteries. There is atherosclerotic calcification of the aortic arch with tortuosity. There are diffuse degenerative changes of the visualized thoracic spine. Mild degree of dextroscoliosis. Normal visualized ribs, clavicles, and shoulders. There is no demonstrated abnormality of the visualized soft tissue structures of the upper abdomen. RAD/Chest 1 View (Portable) IMPRESSION: No acute abnormality is seen. Electronically Signed: Imer Gutierrez MD at 14:51 EDT , Service support ,
--- NOTE | 2020-08-24 14:37 | EDS_ITS ---
HPI History of Present Illness Chief Complaint: Chest Pain Narrative Patient presents with 2 complaints, she has had headaches for the past few months and this will got somewhat worse. It is not different in quality but it is somewhat worse. She is describing frontal and diffuse headache throughout gradual in onset since yesterday without any vision changes. She has no neck pain or neck stiffness. She has no fever or chills. She is also complaining of chest pain she recently had a mastectomy and the pain is around the mastectomy site there is no pleuritic component. She is denying radiation to her back or tearing sensation. No lower extremity edema or calf pain. Past medical history: Reviewed at the bedside and in the computer. Medications: Reviewed Social history: Noncontributory Review of systems: All systems negative except as indicated General: No fever Eyes: No visual changes ENT: No upper airway congestion, normal voice Neck: No neck pain Cardiovascular: Chest pain as in HPI, no palpitations. Respiratory: No shortness of breath or cough Gastrointestinal: No abdominal pain, nausea vomiting or diarrhea Genitourinary: No dysuria Musculoskeletal: Denies myalgias no difficulty with ambulation Skin: No rash Neurological: No memory loss, confusion or any focal weakness. Headache as in HPI Psych: No recent behavioral changes Hematologic: No easy bleeding or easy bruising Physical exam General: Patient does not appear acutely ill she appears chronically ill she appears in some distress Head: Normocephalic, Atraumatic Eyes: Conjunctiva not pale ENT: Slightly dry mucous membranes Neck: Supple, Nontender, No lymphadenopathy Cardiovascular: Regular rate, Regular rhythm. I did not appreciate any murmurs Chest wall: There is chest wall tenderness over the left incision site however there is no signs of infection. Incision is healing well. No masses. Respiratory: No distress, CTA bilaterally Abdomen: Soft, Nontender, Nondistended Back: Nontender, Normal Inspection. Negative for: CVA tenderness Extremities: Nontender, No edema. No calf pain. Skin: Normal color, No rash Neurological: Alert, Normal Strength, Normal Sensation [facility] Medical History (Updated 08/24/20 @ 18:[address] Josué Gasca MD) Anemia Anxiety Asthma Cancer of left female breast Chest pain Chronic pain Chronic pain CKD (chronic kidney disease) Colon cancer Colon polyps Essential hypertension Fibromyalgia Fibromyalgia Herpes labialis History of pulmonary embolus (PE) Hyperlipidemia Hypertension Near syncope Obesity Osteoporosis Osteoporosis Personal history of colon cancer Rheumatoid arthritis Seasonal allergies Vitamin D deficiency Home Medications albuterol sulfate 1 puff INHALATION Q4H PRN PRN 08/10/13 [History Last Taken Unknown] ferrous sulfate 325 mg PO DAILY@0800 08/19/17 [History Last Taken Unknown] ergocalciferol (vitamin D2) 1,250 mcg (50,000 unit) capsule 50,000 unit PO .Q10 DAYS cap 02/19/19 [History Last Taken Unknown] paroxetine HCl 30 mg tablet 30 mg PO DAILY 02/19/19 [History Last Taken Unknown] trazodone 50 mg tablet 50 mg PO QHS PRN 02/19/19 [History Last Taken Unknown] acetaminophen 325 mg tablet 325 mg PO Q6H PRN 02/24/19 [History Last Taken Unknown] ibuprofen 200 mg PO PRN PRN 05/31/20 [History Last Taken Unknown] cannabidiol 0.25 mg PO DAILY PRN 06/06/20 [History Last Taken 06/12/20 02:02] Ondansetron Odt 4 mg SL/PO Q4H 07/04/20 [History Last Taken Unknown] ondansetron HCl 8 mg PO Q8H PRN PRN #20 tablet 07/04/20 [Rx Last Taken Unknown] anastrozole 1 mg PO DAILY 30 Days #30 tab 07/27/20 [Rx Last Taken Unknown] calcium carbonate 600 mg(1,500 mg)-vitamin D3 800 unit chewable tablet 1 tablet PO BID 08/15/20 [History Last Taken Unknown] metoprolol succinate 50 mg tablet,extended release 24 hr 50 mg PO DAILY #30 tablet 08/15/20 [Rx Last Taken Unknown] Allergy/AdvReac Type Severity Reaction Status Date / Time latex Allergy Severe Rash Verified 08/24/20 13:26 Iodinated Contrast Media AdvReac Severe Hives Verified 08/24/20 13:26 [CONTRASTS] Family History (Updated 08/15/20 @ 14:43 by Madyson Esparza) Brother CAD (coronary artery disease) CABG Myocardial infarction, Onset Age: 40 Grandmother Breast cancer paternal Aunt Breast cancer maternal Lung cancer paternal Sister Rheumatoid arthritis Mayes esophagus Colon polyps Monoclonal gammopathy Father Lung cancer Uncle Lung cancer paternal Mother Vascular dementia Alzheimers disease Other Anxiety and depression Cancer Hyperlipemia Hypertension Osteoporosis Surgical History History of appendectomy History of colonoscopy with polypectomy History of hysterectomy History of left breast biopsy (~04/2020) History of left heart catheterization (05/16/06) History of left mastectomy Social History (Updated 08/15/20 @ 14:44 by Madyson Esparza) Smoking Status: Former smoker quit date: 04/28/87 Tobacco: How many years used: 10 alcohol intake: current substance use type: does not use what type of physical activity do you participate in: walking and weight training EXAM Physical Exam Const Vital Signs: 08/24/20 13:23 08/24/20 13:40 08/24/20 13:44 Temperature 98.1 F Temperature Source Temporal Pulse Rate 58 L 46 L Respiratory Rate 18 12 Respiratory Pattern Normal Blood Pressure 221/118 H 121/96 H Blood Pressure Mean 152 104 Pulse Ox 95 96 Oxygen Delivery Method Room Air Room Air 08/24/20 14:51 08/24/20 16:24 08/24/20 16:55 Temperature Temperature Source Pulse Rate 46 L 44 L 57 L Respiratory Rate 14 18 12 Respiratory Pattern Blood Pressure 222/97 H 196/97 H 171/79 H Blood Pressure Mean 138 130 109 Pulse Ox 95 94 96 Oxygen Delivery Method Room Air Room Air Room Air 08/24/20 17:51 Temperature Temperature Source Pulse Rate 57 L Respiratory Rate 15 Respiratory Pattern Blood Pressure 169/82 H Blood Pressure Mean 111 Pulse Ox 96 Oxygen Delivery Method Room Air MDM MDM MDM Narrative Medical decision making narrative: Patient has an unremarkable ED work-up. She appears well. She has no evidence of PE or cardiac etiology, her chest wall pain is reproducible. Her headaches improved. Her blood pressure improved. I will discharge her in stable condition she is borderline bradycardic therefore I will not add any kind of AV mina blocking agent however I do believe a lot of her blood pressure increases secondary to headache, therefore we will wait and see for the next few days about the blood pressure. She appears stable and I believe she can be safely discharged. Lab Data Labs: Laboratory Results - last 24 hr 08/24/20 08/24/20 08/24/20 13:30 13:30 13:30 WBC 14.0 H RBC 4.16 L Hgb 12.4 Hct 39.5 MCV 95.0 MCH 29.8 MCHC 31.4 L RDW Std Deviation 45.1 H RDW Coeff of Lui 12.8 Plt Count 402 MPV 10.3 Immature Gran % (Auto) 0.800 Neut % (Auto) 77.2 H Lymph % (Auto) 14.9 L [place] % (Auto) 6.6 Eos % (Auto) 0.1 Baso % (Auto) 0.4 Absolute Neuts (auto) 10.8 H Absolute Lymphs (auto) 2.09 Nucleated RBC % 0 D-Dimer Quant (PE/DVT) 0.28 Sodium 142 Potassium 3.5 Chloride 110 H Carbon Dioxide 28.0 Anion Gap 4 L BUN 17 Creatinine 0.88 Estim Creat Clear Calc 57.35 Est GFR (MDRD) Af Amer 83 Est GFR (MDRD) Non-Af 69 BUN/Creatinine Ratio 19.4 Glucose 84 Calcium 8.9 Total Bilirubin 0.20 AST 10 L ALT 17 Alkaline Phosphatase 78 Troponin I < 0.015 Total Protein 6.8 Albumin 3.7 Globulin 3.1 Albumin/Globulin Ratio 1.2 08/24/20 16:00 WBC RBC Hgb Hct MCV MCH MCHC RDW Std Deviation RDW Coeff of Lui Plt Count MPV Immature Gran % (Auto) Neut % (Auto) Lymph % (Auto) Stone[place] % (Auto) Eos % (Auto) Baso % (Auto) Absolute Neuts (auto) Absolute Lymphs (auto) Nucleated RBC % D-Dimer Quant (PE/DVT) Sodium Potassium Chloride Carbon Dioxide Anion Gap BUN Creatinine Estim Creat Clear Calc Est GFR (MDRD) Af Amer Est GFR (MDRD) Non-Af BUN/Creatinine Ratio Glucose Calcium Total Bilirubin AST ALT Alkaline Phosphatase Troponin I < 0.015 Total Protein Albumin Globulin Albumin/Globulin Ratio Radiography Diagnostic Testing: Radiology Impression Brain CT 08/24/20 14:33 IMPRESSION: Chronic involutional changes of the brain. Electronically Signed: Imer Gutierrez MD at 15:16 EDT , Service support , Chest X-Ray 08/24/20 14:36 IMPRESSION: No acute abnormality is seen. Electronically Signed: Imer Gutierrez MD at 14:51 EDT , Service support , Rhythm Strip Rhythm Strip: Sinus Rhythm Rate: 49 Ectopy: None EKG Initial EKG: Comments: Sinus bradycardia with a rate of 49. Normal MS and QTc intervals. No ischemic changes. Interpreted by emergency doctor Discharge Plan Triage Chief Complaint: Chest Pain ED Provider: Josué Gasca Dx/Rx/DC Orders Clinical Impression: Headache, Hypertension, Chest pain Instructions: ED Chest Pain, Uncertain Cause, ED High Blood Pressure ... Prescriptions: No Action acetaminophen [Tylenol] 325 mg tablet 325 mg PO Q6H PRN (Reason: Pain 1-10 Or Fever) RF: 0 paroxetine HCl 30 mg tablet 30 mg PO DAILY RF: 0 trazodone 50 mg tablet 50 mg PO QHS PRN (Reason: Sleep) RF: 0 Caltrate 600 plus D 600 mg (1,500 mg)-800 unit tablet,chewable 1 tablet PO BID RF: 0 metoprolol succinate 50 mg tablet extended release 24 hr 50 mg PO DAILY Qty: 30 RF: 2 albuterol sulfate 1 PUFF inhaler 1 puff INHALATION Q4H PRN PRN (Reason: Asthma) RF: 0 ergocalciferol (vitamin D2) 50,000 unit capsule 50,000 unit PO .Q10 DAYS RF: 0 ferrous sulfate 325 MG tablet 325 mg PO DAILY@0800 RF: 0 ibuprofen 200 MG capsule 200 mg PO PRN PRN (Reason: Pain 1-10 Or Fever) RF: 0 cannabidiol 100 MG/ML solution 0.25 mg PO DAILY PRN (Reason: Pain Score 1-10) RF: 0 Ondansetron Odt 4 mg SL/PO Q4H RF: 0 ondansetron HCl 8 MG tablet 8 mg PO Q8H PRN PRN (Reason: Nausea/Emesis) Qty: 20 RF: 0 anastrozole 1 MG tablet 1 mg PO DAILY 30 Days Qty: 30 RF: 0 Primary Care Provider: Chris Montelongo Referrals: Chris Montelongo MD [Primary Care Provider] - 3-5 Days Disposition Disposition: Home, self care
[2020-08-24 14:51] LABS: Absolute Lymphocyte Count 2.09 X10^3/uL (0.83-4.51); Absolute Neutrophil Count 10.8 X10^3/uL (2.0-7.7); Basophil# 0.05 X10^3/uL; Basophil% 0.4 % (0-1); Eosinophil# 0.01 X10^3/uL; Eosinophils% 0.1 % (0-5); Hematocrit 39.5 % (37-47); Hemoglobin 12.4 g/dL (12.0-15.0); Lymphocyte # 2.09 X10^3/ul (0.83-4.51); Lymphocyte % 14.9 % (19-41); Mean Corp Hgb Conc 31.4 g/dL (32-36); Mean Corpuscular Hgb 29.8 pg (27.0-32.0); Mean Platelet Vol. 10.3 fl (6.2-12.0); Monocyte# 0.92 X10^3/uL; Monocyte% 6.6 % (0-10); NRBC Flagged by Analyzer 0 % (0-5); Neutrophil % 77.2 % (47-70); Platelet Count 402 K/mm3 (150-450); RBC Distribution Width CV 12.8 % (11.6-14.6); RBC Distribution Width SD 45.1 fl (35.1-43.9); Red Blood Count 4.16 M/mm3 (4.2-5.4)
[2020-08-24] MEDS: DiphenhydrAMINE 50 MG/ML Syringe 25 MG IV (14:54)
[2020-08-24] MEDS: 0.9% Normal Saline 1,000 ML 1000 ML IV (14:54)
[2020-08-24] MEDS: Metoclopramide 10 MG/2 ML Vial 5 MG IV (14:55)
[2020-08-24] MEDS: Ketorolac 15 MG/ML Vial IV (14:55)
[2020-08-24 15:04] LABS: D-Dimer Quantitative (DVT/PE) 0.28 FEU/ug/m (0.27-0.49)
[2020-08-24 15:05] LABS: ALB/GLOB Ratio 1.2 RATIO (0.9-2.4); AST(SGOT) 10 U/L (15-37); Alanine Aminotransfer ALT/SGPT 17 U/L (13-56); Albumin, Serum 3.7 g/dL (3.2-5.0); Alkaline Phosphatase 78 U/L (45-117); Anion Gap 4 (5-15); BUN 17 mg/dL (7-18); BUN/Creat Ratio 19.4 RATIO (10-20); Calcium,Total 8.9 mg/dL (8.5-10.1); Chloride 110 mmol/L (98-107); Creatinine, Serum 0.88 mg/dL (0.55-1.02); EST Glomerular Filtration Rate 69 mL/min (>60); Est Glom Filt Rate - Afr Amer 83 mL/min (>60); Estimated Creatinine Clearance 57.35 ml/min; Globulin 3.1 g/dL (2.2-4.2); Glucose 84 mg/dL (74-106); Potassium 3.5 mmol/L (3.5-5.1); Protein, Total 6.8 g/dL (6.4-8.2); Sodium Level 142 mmol/L (136-145)
[2020-08-24] MEDS: hydrALAZINE 20 MG/ML Vial 10 MG IV (16:31)
--- NOTE | 2020-08-24 17:59 | NURSING ---
NOTIFIED OF BP AND PAIN SCORE. CHART UP FOR REEVAL
[2020-08-24] MEDS: HYDROmorphone 1 MG/ML Syringe IV (18:24)
== END 2020-08-24 18:40 | disposition home or self-care (01) ==
PROVIDERS: Emergency Provider Emergency Medicine; PCP Internal Medicine
DX: R51.9 Headache, unspecified (principal); R07.9 Chest pain, unspecified; I10 Essential (primary) hypertension; J45.909 Unspecified asthma, uncomplicated; E78.5 Hyperlipidemia, unspecified; Z79.51 Long term (current) use of inhaled steroids; Z79.899 Other long term (current) drug therapy; Z87.891 Personal history of nicotine dependence
CPT/HCPCS: 70450; 71045; 80053; 84484; 85025; 85379; 93005; 96361; 96374; 96375; 99285; J7030; A4216

== ENCOUNTER → 2020-10-19 15:19 | Outpatient (CLI) | payer MEDICARE, BC, SELFPAY ==
[2020-10-19 14:59] VITALS: BMI 31.2
[2020-10-19 16:40] LABS: Absolute Neutrophil Count 5.8 X10^3/uL (2.0-7.7); Basophil# 0.04 X10^3/uL; Basophil% 0.5 % (0-1); Eosinophil# 0.18 X10^3/uL; Eosinophils% 2.2 % (0-5); Hematocrit 37.5 % (37-47); Lymphocyte % 20.7 % (19-41); Mean Corpuscular Hgb 30.3 pg (27.0-32.0); Mean Corpuscular Volume 94.7 fL (81-99); Mean Platelet Vol. 10.3 fl (6.2-12.0); Monocyte# 0.46 X10^3/uL; Monocyte% 5.6 % (0-10); NRBC Flagged by Analyzer 0 % (0-5); Neutrophil # 5.79 X10^3/uL (2.7-7.7); Neutrophil % 70.4 % (47-70); Platelet Count 340 K/mm3 (150-450); RBC Distribution Width CV 13.2 % (11.6-14.6); RBC Distribution Width SD 45.8 fl (35.1-43.9); Red Blood Count 3.96 M/mm3 (4.2-5.4); White Blood Count 8.2 K/mm3 (4.4-11.0)
[2020-10-19 16:59] LABS: ALB/GLOB Ratio 1.2 RATIO (0.9-2.4); AST(SGOT) 12 U/L (15-37); Alanine Aminotransfer ALT/SGPT 19 U/L (13-56); Albumin, Serum 3.4 g/dL (3.2-5.0); Alkaline Phosphatase 87 U/L (45-117); Anion Gap 6 (5-15); BUN 10 mg/dL (7-18); BUN/Creat Ratio 9.3 RATIO (10-20); Calcium,Total 8.7 mg/dL (8.5-10.1); Chloride 104 mmol/L (98-107); Creatinine, Serum 1.07 mg/dL (0.55-1.02); EST Glomerular Filtration Rate 55 mL/min (>60); Est Glom Filt Rate - Afr Amer 66 mL/min (>60); Globulin 2.9 g/dL (2.2-4.2); Glucose 83 mg/dL (74-106); Potassium 3.4 mmol/L (3.5-5.1); Protein, Total 6.3 g/dL (6.4-8.2); Sodium Level 140 mmol/L (136-145)
[2020-10-19 23:28] LABS: Xtra Tube EP Lab EXTRA TUBE
== END ==
PROVIDERS: PCP Internal Medicine; Referring Provider Internal Medicine Hematology & Oncology; Visit Provider Internal Medicine Hematology & Oncology
DX: C50.912 Malignant neoplasm of unspecified site of left female breast (principal); M81.0 Age-related osteoporosis without current pathological fracture; Z85.038 Personal history of other malignant neoplasm of large intestine
CPT/HCPCS: 36415; 80053; 85025

== ENCOUNTER → 2020-10-20 10:54 | Outpatient (CLI) | payer MEDICARE, BC, SELFPAY ==
[2020-09-14 13:51] VITALS: BMI 31.2
[2020-10-19 14:59] VITALS: BMI 31.2
--- NOTE | 2020-10-20 11:06 | MRI_ITS ---
STUDY: MRI CERVICAL SPINE WITHOUT CONTRAST REASON FOR EXAM: Female, 65 years old. neck pain, chronic, degenerative changes on xr TECHNIQUE: Standardized fat and water weighted pulse sequences were obtained in the sagittal and axial planes. COMPARISON: None FINDINGS: Normal foramen magnum and brainstem-cervical cord junction. Normal craniovertebral junction. Normal anterior atlantoaxial articulation. Normal odontoid process. The intervertebral discs bases are slightly dehydrated with the entire study. Otherwise: Normal cervical lordosis. Normal vertebral bodies and posterior osseous elements. C2-3: Normal endplates. Normal disc height, signal and morphology. Normal central canal and intervertebral neural foramina. C3-4: Normal endplates. Normal disc height, signal and morphology. Normal central canal and intervertebral neural foramina. C4-5: Normal endplates. Normal disc height, signal and morphology. Normal central canal and intervertebral neural foramina. C5-6: Normal endplates. Normal disc height, signal and morphology. Normal central canal and intervertebral neural foramina. C6-7: Normal endplates. Normal disc height, signal and morphology. Normal central canal and intervertebral neural foramina. C7-T1: Normal endplates. Normal disc height, signal and morphology. Normal central canal and intervertebral neural foramina. Normal cervical cord. Normal visualized soft tissue structures. MRI/Spine Cervical (Routine) IMPRESSION: Normal unenhanced MR examination of the cervical spine. Electronically Signed: Miranda Loomisphyllis, at 12:16 EDT Tel , Service support ,
== END ==
PROVIDERS: PCP Internal Medicine; Referring Provider Orthopaedic Surgery; Visit Provider Orthopaedic Surgery
DX: M47.22 Other spondylosis with radiculopathy, cervical region (principal)
CPT/HCPCS: 72141

== ENCOUNTER → 2021-02-20 14:22 | Outpatient (CLI) | payer MEDICARE, BC, SELFPAY ==
--- NOTE | 2021-02-20 14:32 | CT_ITS ---
STUDY: LOW DOSE CT LUNG CANCER SCREENING REASON FOR EXAM: Female, 65 years old. Lung screening -- and gt;30 pack yr history; former smoker: asymptomatic RADIATION DOSAGE (If Supplied By Facility): CTDIvol = ( 3.02 ) mGy, DLP = ( 94.78 ) mGycm TECHNIQUE: No contrast was administered. Low dose technique was utilized (average mAS-38 and kVp 120). 1.25 mm axial source images with a slice interval of 1.25-mm were reconstructed in lung windows. 2.5 mm axial source images with a slice interval of 2.5-mm were reconstructed in lung windows. 5.0 mm axial source images with a slice interval of 5.0-mm were reconstructed in soft tissue windows. Nodule measured using lung windows on PACS and/or independent workstation with automated measurement of minimum and maximum diameter. Nodule measurement reported as average diameter rounded to the nearest whole number. Growth is defined as an increase ins size of greater than 1.5 mm. COMPARISON: None. NODULES: No suspicious nodules are seen. Emphysema: Mild degree of scarring at the lung apices. Minimal linear scarring along the posterior medial aspect of the left lower lobe. Endobronchial lesion: None Aorta: Atherosclerotic plaque formation of the aortic arch. Coronary arteries: Coronary artery calcification. Heart: Unremarkable Pulmonary artery: Unremarkable Mediastinal nodes: Small mediastinal lymph nodes. Other chest and abdominal findings: CT/Low Dose CT Lung Screening IMPRESSION: Lung-RADS category 2 - Continue annual screening with LDCT in 12 months. IMPORTANT NOTES FOR USE: ACR Lung-RADS Version 1.1 Assessment Categories Release Date: 2018 Category: Coded 0-4 bases on nodule(s) with highest degree of suspicion. Negative screen is defined as categories 1 and 2; a positive screen is defined as categories 3 and 4. Category 3 and 4A nodules that are unchanged on interval CT should be coded as category 2, and individuals returned to screening in 12 months. Category 4X: Category 3 or 4 nodules with additional imaging findings that increase the suspicion of lung cancer, such as spiculation, GGN that doubles in size in 1 year, enlarged lymph notes, etc. Category Modifiers: S (significant finding unrelated to lung cancer) Electronically Signed: Imer Gutierrez MD at 15:00 EDT , Service support ,
== END ==
PROVIDERS: PCP Internal Medicine; Referring Provider Nurse Practitioner Family; Visit Provider Nurse Practitioner Family
DX: Z87.891 Personal history of nicotine dependence (principal); Z12.2 Encounter for screening for malignant neoplasm of respiratory organs
CPT/HCPCS: 71271

== ENCOUNTER → 2021-03-02 13:57 | Outpatient (CLI) | payer MEDICARE, BC, SELFPAY ==
[2021-03-02 15:51] LABS: Anion Gap 4 (5-15); BUN 15 mg/dL (7-18); BUN/Creat Ratio 11.6 RATIO (10-20); Chloride 108 mmol/L (98-107); Creatinine, Serum 1.29 mg/dL (0.55-1.02); EST Glomerular Filtration Rate 44 mL/min (>60); Est Glom Filt Rate - Afr Amer 53 mL/min (>60); Glucose 85 mg/dL (74-106); Sodium Level 140 mmol/L (136-145)
== END ==
PROVIDERS: PCP Internal Medicine; Referring Provider Internal Medicine; Visit Provider Internal Medicine
DX: I10 Essential (primary) hypertension (principal)
CPT/HCPCS: 36415; 80048

== ENCOUNTER 2021-05-15 10:28 | Outpatient (CLI) | payer MEDICARE, BC, SELFPAY ==
--- NOTE | 2021-05-15 10:32 | BI_ITS ---
MAMMOGRAPHY - UNILATERAL SCREENING: RIGHT BREAST REASON FOR EXAM: Female, 65 years old. Routine annual screening examination (unilateral). PERTINENT HISTORY: Personal history of breast cancer. Prior left mastectomy. Grandmother with breast cancer. TECHNIQUE: Digital unilateral breast bhavik (3D mammographic acquisition) in the CC and MLO projections. 2-D mediolateral oblique (MLO) and craniocaudad (CC) views of both breasts were obtained. CAD: Full Field Digital Mammography with Computer Added Detection was performed. COMPARISON: Comparison is made with prior study dated 12/09/2020 and 04/11/2017. FINDINGS: Breast Composition: The breasts are heterogeneously dense, which may obscure small masses. There are no dominant masses or suspicious calcifications. No other significant abnormalities are identified. There has been no significant change since the prior study. BI/SCREEN MAMM (CAD) W/BHAVIK UNI R IMPRESSION: Stable unilateral screening mammogram. Yearly follow-up mammogram recommended. (A) ASSESSMENT CATEGORY: BIRADS Category 1: Negative. A letter regarding these results will be sent to the patient by the facility within 30 days. Approximately 10% of breast cancers are not detected by mammography. A normal mammogram should not delay biopsy of a clinically suspicious abnormality. [id number] Electronically Signed: Imer Gutierrez MD at 11:09 EST , Service support ,
== END 2021-05-15 23:59 | disposition short-term general hospital (02) ==
PROVIDERS: PCP Internal Medicine; Referring Provider Internal Medicine Hematology & Oncology; Visit Provider Internal Medicine Hematology & Oncology
DX: Z12.31 Encounter for screening mammogram for malignant neoplasm of breast (principal); Z85.3 Personal history of malignant neoplasm of breast; Z80.3 Family history of malignant neoplasm of breast; Z90.12 Acquired absence of left breast and nipple
CPT/HCPCS: 77063; 77067

== ENCOUNTER 2021-06-05 11:19 | Outpatient (CLI) | payer MEDICARE, BC, SELFPAY ==
[2021-06-05 12:56] LABS: T4 Free Direct 1.19 ng/dL (0.76-1.46); Thyroid Stim Hormone (TSH) 1.17 uIU/mL (0.358-3.74)
== END 2021-06-05 23:59 | disposition home or self-care (01) ==
PROVIDERS: PCP Internal Medicine; Referring Provider Internal Medicine; Visit Provider Internal Medicine
DX: F41.9 Anxiety disorder, unspecified (principal)
CPT/HCPCS: 36415; 84439; 84443

== ENCOUNTER 2021-07-09 21:56 | Outpatient (CLI) | payer MEDICARE, BC, SELFPAY | END 2021-07-09 23:59 | disposition home or self-care (01) | PROVIDERS: PCP Internal Medicine; Visit Provider Internal Medicine | DX: G47.33 Obstructive sleep apnea (adult) (pediatric) (principal) | CPT/HCPCS: 95810; 95811 ==

== ENCOUNTER → 2021-11-08 | Outpatient (CLI) | payer MEDICARE, BC, SELFPAY ==
--- NOTE | 2021-11-08 10:28 | MRI_ITS ---
STUDY: BILATERAL BREAST MR WITHOUT AND WITH CONTRAST REASON FOR EXAM: Female, 66 years old. Dense breast. History of prior left mastectomy. TECHNIQUE: Multi-sequence multi-echo imaging of both breasts was performed with a dedicated breast coil. T1-weighted and T2-weighted images were performed before the administration of contrast. T1-weighted images were also performed after the intravenous administration of 14 mL of Dotarem contrast. COMPARISON: Prior breast MR dated 05/30/2020. Bilateral screening mammogram dated 05/15/2021. FINDINGS: LEFT BREAST: The breast tissue is scattered fibroglandular densities with minimal background enhancement. Mastectomy changes. No abnormal enhancing masses. RIGHT BREAST: The breast tissue is scattered fibroglandular densities with minimal background enhancement. There are no abnormal enhancing masses or areas of non-mass enhancement in the left breast. There are no enlarged or abnormal lymph nodes. There is no abnormality in the visualized regions of the chest or liver. MRI/Breast Bilateral W/O and W IMPRESSION: Changes of left mastectomy. No other abnormality. Yearly screening mammography recommended. CATEGORY: BIRADS Category 2: Benign. A letter regarding these results will be sent to the patient by the facility within 30 days. Electronically Signed: Abelino Arvizu MD at 9:49 EDT ,
[2021-11-08 11:00] LABS: CREATININE FINGERSTICK 1.1 mg/dL (0.55-1.02)
== END | disposition home or self-care (01) ==
PROVIDERS: PCP Internal Medicine; Referring Provider Internal Medicine Hematology & Oncology; Visit Provider Internal Medicine Hematology & Oncology
DX: R92.2 Inconclusive mammogram (principal); Z90.12 Acquired absence of left breast and nipple
CPT/HCPCS: 77049; A9575; A4216; C8908

== ENCOUNTER → 2021-12-26 | Outpatient (CLI) | payer MEDICARE, BC, SELFPAY ==
[2021-12-26 12:15] LABS: Erythrocyte Sedimentation Rate 12 mm/hr (0-30)
[2021-12-26 12:18] LABS: Hematocrit 40.8 % (37-47); Hemoglobin 13.3 g/dL (12.0-15.0); Mean Corp Hgb Conc 32.6 g/dL (32-36); Mean Corpuscular Hgb 31.3 pg (27.0-32.0); Platelet Count 377 K/mm3 (150-450); RBC Distribution Width CV 13.1 % (11.6-14.6); RBC Distribution Width SD 46.2 fl (35.1-43.9); Red Blood Count 4.25 M/mm3 (4.2-5.4); White Blood Count 10.4 K/mm3 (4.4-11.0)
[2021-12-26 12:48] LABS: ALB/GLOB Ratio 1.1 RATIO (0.9-2.4); AST(SGOT) 17 U/L (15-37); Alanine Aminotransfer ALT/SGPT 17 U/L (13-56); Albumin, Serum 3.7 g/dL (3.2-5.0); Alkaline Phosphatase 61 U/L (45-117); Anion Gap 5 (5-15); BUN 11 mg/dL (7-18); BUN/Creat Ratio 8.4 RATIO (10-20); CRP 3.42 mg/L (0.0-3.0); Calcium,Total 9.1 mg/dL (8.5-10.1); Chloride 105 mmol/L (98-107); Creatinine, Serum 1.31 mg/dL (0.55-1.02); EST Glomerular Filtration Rate 43 mL/min (>60); Est Glom Filt Rate - Afr Amer 52 mL/min (>60); Globulin 3.3 g/dL (2.2-4.2); Glucose 104 mg/dL (74-106); Potassium 3.8 mmol/L (3.5-5.1); Sodium Level 139 mmol/L (136-145)
[2021-12-27 16:09] LABS: Endomysial Antibody IgA Negative (Negative); Immunoglobulin A 60 mg/dL (87-352)
[2021-12-27 17:21] LABS: t-Transglutaminase IgA <2 U/mL (0-3)
== END | disposition home or self-care (01) ==
PROVIDERS: PCP Internal Medicine; Referring Provider Internal Medicine Gastroenterology; Visit Provider Internal Medicine Gastroenterology
DX: R19.7 Diarrhea, unspecified (principal)
CPT/HCPCS: 36415; 80053; 82784; 83516; 85027; 85652; 86140; 86255

== ENCOUNTER → 2021-12-27 | Outpatient (CLI) | payer MEDICARE, BC, SELFPAY ==
[2022-01-05 16:33] LABS: Fats, Neutral Normal (.); Fats, Total Normal (.)
== END | disposition home or self-care (01) ==
LOC: MTLAB 11:29
PROVIDERS: PCP Internal Medicine; Referring Provider Internal Medicine Gastroenterology; Visit Provider Internal Medicine Gastroenterology
DX: R19.7 Diarrhea, unspecified (principal)
CPT/HCPCS: 82705

== ENCOUNTER → 2022-01-18 | Outpatient (CLI) | payer MEDICARE, BC, SELFPAY | END | disposition home or self-care (01) | PROVIDERS: PCP Internal Medicine; Referring Provider Internal Medicine Gastroenterology; Visit Provider Internal Medicine Gastroenterology | DX: R19.7 Diarrhea, unspecified (principal) | CPT/HCPCS: 36415 ==

== ENCOUNTER → 2022-02-21 | Outpatient (CLI) | payer MEDICARE, BC, SELFPAY ==
--- NOTE | 2022-02-21 14:45 | RAD_ITS ---
STUDY: X-RAY - LEFT SHOULDER REASON FOR EXAM: Female, 66 years old. PAIN TECHNIQUE: 4 view(s) of the shoulder. COMPARISON: None. FINDINGS: Mildly narrowed glenohumeral articulation. Normal acromioclavicular joint. Normal acromion. Normal humeral head and visualized proximal humerus. Surgical clips in left axilla. Normal visualized pulmonary apex. RAD/Shoulder min 2 Views IMPRESSION: Degenerative changes. No acute fracture or other significant bony pathology Electronically Signed: Harpreet Gao MD at 22:12 EDT ,
--- NOTE | 2022-02-21 14:45 | RAD_ITS ---
STUDY: X-RAY - LEFT HUMERUS REASON FOR EXAM: Female, 66 years old. PAIN TECHNIQUE: 2 view(s) of the humerus. COMPARISON: None. FINDINGS: Normal visualized humerus. There is no demonstrated fracture or osseous destructive process. There is no demonstrated soft tissue abnormality. RAD/Humerus min 2 Views IMPRESSION: Normal x-ray examination of the humerus. Electronically Signed: Harpreet Gao MD at 22:17 EDT ,
== END | disposition home or self-care (01) ==
LOC: RAD 14:43
PROVIDERS: PCP Internal Medicine; Referring Provider Internal Medicine Hematology & Oncology; Visit Provider Internal Medicine Hematology & Oncology
DX: M79.622 Pain in left upper arm (principal); M25.512 Pain in left shoulder
CPT/HCPCS: 73030; 73060

== ENCOUNTER → 2022-03-29 | Outpatient (CLI) | payer MEDICARE, BC, SELFPAY ==
[2022-03-29 12:41] LABS: Absolute Lymphocyte Count 1.71 X10^3/uL (0.83-4.51); Absolute Neutrophil Count 7.7 X10^3/uL (2.0-7.7); Basophil# 0.06 X10^3/uL; Basophil% 0.6 % (0-1); Eosinophil# 0.16 X10^3/uL; Eosinophils% 1.5 % (0-5); Hematocrit 41.5 % (37-47); Hemoglobin 13.2 g/dL (12.0-15.0); Lymphocyte # 1.71 X10^3/ul (0.83-4.51); Lymphocyte % 16.5 % (19-41); Mean Corp Hgb Conc 31.8 g/dL (32-36); Mean Corpuscular Hgb 31.2 pg (27.0-32.0); Mean Corpuscular Volume 98.1 fL (81-99); Mean Platelet Vol. 9.9 fl (6.2-12.0); Monocyte# 0.58 X10^3/uL; Monocyte% 5.6 % (0-10); NRBC Flagged by Analyzer 0.2 % (0-5); Neutrophil # 7.69 X10^3/uL (2.7-7.7); Neutrophil % 74.4 % (47-70); Platelet Count 403 K/mm3 (150-450); RBC Distribution Width CV 13.4 % (11.6-14.6); RBC Distribution Width SD 48.9 fl (35.1-43.9); Red Blood Count 4.23 M/mm3 (4.2-5.4); White Blood Count 10.3 K/mm3 (4.4-11.0)
[2022-03-29 12:51] LABS: ALB/GLOB Ratio 1.1 RATIO (0.9-2.4); AST(SGOT) 12 U/L (15-37); Alanine Aminotransfer ALT/SGPT 23 U/L (13-56); Albumin, Serum 3.4 g/dL (3.2-5.0); Alkaline Phosphatase 57 U/L (45-117); Anion Gap 4 (5-15); BUN 16 mg/dL (7-18); BUN/Creat Ratio 15.5 RATIO (10-20); Chloride 106 mmol/L (98-107); Creatinine, Serum 1.03 mg/dL (0.55-1.02); EST Glomerular Filtration Rate 57 mL/min (>60); Est Glom Filt Rate - Afr Amer 69 mL/min (>60); Glucose 94 mg/dL (74-106); Magnesium 2.1 mg/dL (1.6-2.6); Potassium 4.5 mmol/L (3.5-5.1); Protein, Total 6.4 g/dL (6.4-8.2); Sodium Level 139 mmol/L (136-145)
== END | disposition home or self-care (01) ==
LOC: BIMLAB 10:45
PROVIDERS: PCP Internal Medicine; Referring Provider Internal Medicine; Visit Provider Internal Medicine
DX: I10 Essential (primary) hypertension (principal); K52.839 Microscopic colitis, unspecified
CPT/HCPCS: 36415; 80053; 83735; 85025

== ENCOUNTER 2022-05-09 11:00 | Outpatient (RCR) | payer MEDICARE, BC, SELFPAY ==
--- NOTE | 2022-04-04 15:59 | HP.PTEVAL ---
Patient's Visit Information KIEL ENGLISH is a 66 year old F referred to Physical Therapy by Dr. Chris Montelongo MD with a diagnosis of L shoulder pain. Date of Evaluation: 04/04/22 Physical Therapist: Blayne Benito, DPT, OCS, CSCS - Visit Plan Frequency: 2x /Week Duration: 4-6 Weeks Plan: 2x/week x 4-6 for. 1. cervical retraction ext ROM and mobs , postural correction for cervical derangement. 2. L shoulder PROM, AAROM exercises and eventual strength as tolerated. Pt has tens at home and MH,. ice as needed. - Subjective L shoulder has hurt since December. Has polymyalgia so things flare up but this is different. Moderate some days Pain is lateral upper L arm. Tender in L UT and upper arm. Pain is mostly constant. Sometimes it feels numb. Tingles and numbness a couple times a day with lifting. Lifting arm hurts. 5/10 at rest. 10+ with movement. Insidious onset. 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 Sleep is interrupted in that it throbs and anderson and makes it hard to get comfortable. trazadone helps. 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 No regular exercises except walking and still does this. Basic ADLs, are getting done mostly with R UE and is R handed, moving L arm moves. Hobbies include crafting. She can craft but it is difficult with L arm pain. Never had this shoulder pain before. - Pain L shoulder. Pain Intensity (Out of 10): 5 Pain Intensity Range: 5, 10 - Objective Walks protective of L UE and holding it still but I gait and trasnfers bed and chair. Posture is forward head and scap B. elevated L shoulder blade. Cervical aROM ext 35 and deviates R, rotation L is 35 and R is 60, pain to the l and ectension. AROM L shoulder no elevation due to pain, 20 ext rotation and psis IR all self limited by pain. PROM 130 elevation adn 50 ext rotation and 70 IR without end feel limited by paitnet c/o pain. elbow and wrist AROM WFL. reflexes 2/3 bi and tri. sensation UE WNL to gross light touch. Unable to assess shoulder strength due to pain but can contract rotatory muscles and elevaotrs. - ext rotation lag. + drop arm. Tender supraspinatus insertion L, + c/s compression test. - Balance/Special Test Scores Quick DASH Score: 79.5450 - Goals Goal 1:: ST: Full cervical and L shoulder ROM Goal Time Frame: 2-4 Weeks Goal 2:: ST sleep without waking due to pain Goal Time Frame: 2-4 Weeks Goal 3:: LT: back to putting coat on without compensation Goal Time Frame: 4-6 Weeks Goal 4:: LT: craft normally without pain Goal Time Frame: 4-6 Weeks Goal 5:: quickdash score 15 Goal Time Frame: 4-6 Weeks - Rehabilitation Potential Physical Therapy Diagnosis: L shoulder pain tendonitis vs cervical derangment Rehabilitation Potential: Fair - Anticipated Interventions Patient/Client Instruction: Educate patient on: Condition, Plan of Care For the Purpose of:: To decrease pain, To increase ROM, To improve muscle performance and motor function, To increase tolerance to activity/condition/position, To improve ability of physical actions for home/community/work/leisure Therapeutic Exercise to Include: Strength training, Postural training, Flexibilty training, Passive ROM, Active ROM For the Purpose of:: To decrease pain, To increase ROM, To improve nutrient delivery to tissue, To improve muscle performance and motor function, To increase tolerance to activity/condition/position, To improve ability of physical actions for home/community/work/leisure Manual Therapy Techniques to Include: Mobilization, Passive ROM, Soft tissue mobilization For the Purpose of:: To decrease pain, To increase ROM, To improve nutrient delivery to tissue, To improve muscle performance and motor function Cryotherapy (ice pack, ice massage): Yes For the Purpose of:: To decrease pain, To decrease swelling/inflammation Thank you for the opportunity to evaluate your patient. For Medicare and Medicare HMO plans, please review the plan of care and approve it. It will need to be FAXED BACK to us at [phone] for Medicare purposes. For Medicare only, by signing this I certify the plan of care. Please let me know if there are questions or concerns regarding this plan of care. Physician Signature: Date:
--- NOTE | 2022-07-08 08:33 | HP.PT.NRP ---
KIEL ENGLISH was seen in my office for initial evaluation on 04/04/22. The following Plan of Care was established for this patient: Initial Frequency: 2x /Week Initial Duration: 4-6 Weeks Patient/Client Instruction: Educate patient on: Condition, Plan of Care For the Purpose of:: To decrease pain, To increase ROM, To improve muscle performance and motor function, To increase tolerance to activity/condition/position, To improve ability of physical actions for home/community/work/leisure Therapeutic Exercise to Include: Strength training, Postural training, Flexibilty training, Passive ROM, Active ROM For the Purpose of:: To decrease pain, To increase ROM, To improve nutrient delivery to tissue, To improve muscle performance and motor function, To increase tolerance to activity/condition/position, To improve ability of physical actions for home/community/work/leisure Manual Therapy Techniques to Include: Mobilization, Passive ROM, Soft tissue mobilization For the Purpose of:: To decrease pain, To increase ROM, To improve nutrient delivery to tissue, To improve muscle performance and motor function Cryotherapy (ice pack, ice massage): Yes For the Purpose of:: To decrease pain, To decrease swelling/inflammation This patient was last seen in our office 05/09/22. Pertinent comments regarding their Physical therapy will appear below: Pt seen 7 visits and was 505 better. she did not attend her final scheduled visit. At this point, it has been over 6 weeks and i will discontinue due to nonattendance. At this point I will be discontinuing this patient from physical therapy. I would be happy to see this patient again in the future if found appropriate by the physician. Thank you! Blayne Benito, DPT, OCS, CSCS Balance/Gait/Functional tests - Balance/Special Test Scores Quick DASH Score: 59.0900
== END 2022-05-09 19:00 | disposition home or self-care (01) ==
LOC: PT 11:00
PROVIDERS: PCP Internal Medicine; Referring Provider Internal Medicine; Visit Provider Internal Medicine
DX: M25.512 Pain in left shoulder (principal)
CPT/HCPCS: 97110; 97140; 97162; 97530

== ENCOUNTER → 2022-05-21 | Outpatient (CLI) | payer MEDICARE, BC, SELFPAY ==
--- NOTE | 2022-05-21 10:54 | BI_ITS ---
MAMMOGRAPHY - UNILATERAL SCREENING: RIGHT BREAST REASON FOR EXAM: Female, 66 years old. Routine annual screening examination (unilateral). PERTINENT HISTORY: Personal history of breast cancer. Prior left mastectomy. Prior right stereotactic breast biopsy. Grandmother with breast cancer. Aunt with breast cancer. TECHNIQUE: Digital unilateral breast bhavik (3D mammographic acquisition) in the CC and MLO projections. 2-D mediolateral oblique (MLO) and craniocaudad (CC) views of both breasts were obtained. CAD: Full Field Digital Mammography with Computer Added Detection was performed. COMPARISON: Comparison is made with prior study dated 05/15/2021 and 11/08/2020. FINDINGS: Breast Composition: The breasts are heterogeneously dense, which may obscure small masses. There are no dominant masses or suspicious calcifications. No other significant abnormalities are identified. There has been no significant change since the prior study. BI/SCREEN MAMM (CAD) W/BHAVIK UNI R IMPRESSION: Stable unilateral screening mammogram. Yearly follow-up mammogram recommended. (A) ASSESSMENT CATEGORY: BIRADS Category 1: Negative. A letter regarding these results will be sent to the patient by the facility within 30 days. Approximately 10% of breast cancers are not detected by mammography. A normal mammogram should not delay biopsy of a clinically suspicious abnormality. [id number] Electronically Signed: Imer Gutierrez MD at 12:03 EST ,
--- NOTE | 2022-05-21 12:48 | CT_ITS ---
STUDY: LOW DOSE CT LUNG CANCER SCREENING REASON FOR EXAM: Female, 66 years old. Lung cancer screening -- +20 pk yr hx; former smoker; asymptomatic. Prior left mastectomy. RADIATION DOSAGE (If Supplied By Facility): CTDIvol = ( 1.59 ) mGy, DLP = ( 54.40 ) mGycm TECHNIQUE: No contrast was administered. Low dose technique was utilized (average mAS-38 and kVp 120). 1.25 mm axial source images with a slice interval of 1.25-mm were reconstructed in lung windows. 2.5 mm axial source images with a slice interval of 2.5-mm were reconstructed in lung windows. 5.0 mm axial source images with a slice interval of 5.0-mm were reconstructed in soft tissue windows. COMPARISON: Comparison is made with prior study of 02/20/2021. NODULES: No suspicious nodule is seen. Emphysema: Stable mild degree of emphysematous changes. Minimal linear scarring in the posterior medial aspect of the left lower lobe. Endobronchial lesion: None Aorta: Atherosclerotic plaque formation of the aortic arch. CORONARY ARTERIES: Coronary artery calcification is seen. Heart: Unremarkable Pulmonary artery: Unremarkable Mediastinal nodes: Small mediastinal benign-appearing lymph nodes. Other chest and abdominal findings: CT/Low Dose CT Lung Screening IMPRESSION: Lung-RADS category 2 - Continue annual screening with LDCT in 12 months. IMPORTANT NOTES FOR USE: ACR Lung-RADS Version 1.1 Assessment Categories Release Date: 2018 Category: Coded 0-4 bases on nodule(s) with highest degree of suspicion. Negative screen is defined as categories 1 and 2; a positive screen is defined as categories 3 and 4. Category 3 and 4A nodules that are unchanged on interval CT should be coded as category 2, and individuals returned to screening in 12 months. Category 4X: Category 3 or 4 nodules with additional imaging findings that increase the suspicion of lung cancer, such as spiculation, GGN that doubles in size in 1 year, enlarged lymph notes, etc. Category Modifiers: S (significant finding unrelated to lung cancer) Electronically Signed: Imer Gutierrez MD at 13:22 EST ,
== END | disposition home or self-care (01) ==
PROVIDERS: PCP Internal Medicine; Visit Provider Internal Medicine Hematology & Oncology
DX: Z12.31 Encounter for screening mammogram for malignant neoplasm of breast (principal); Z87.891 Personal history of nicotine dependence; Z85.3 Personal history of malignant neoplasm of breast
CPT/HCPCS: 71271; 77063; 77067

== ENCOUNTER → 2022-07-01 | Outpatient (CLI) | payer MEDICARE, BC, SELFPAY ==
[2022-07-01 12:43] LABS: AST(SGOT) 14 U/L (15-37); Alanine Aminotransfer ALT/SGPT 20 U/L (13-56); Albumin, Serum 3.3 g/dL (3.2-5.0); Alkaline Phosphatase 65 U/L (45-117); Anion Gap 5 (5-15); BUN 17 mg/dL (7-18); BUN/Creat Ratio 15.7 RATIO (10-20); Calcium,Total 8.8 mg/dL (8.5-10.1); Chloride 107 mmol/L (98-107); Creatinine, Serum 1.08 mg/dL (0.55-1.02); EST Glomerular Filtration Rate 54 mL/min (>60); Est Glom Filt Rate - Afr Amer 65 mL/min (>60); Globulin 3.2 g/dL (2.2-4.2); Glucose 96 mg/dL (74-106); Potassium 3.8 mmol/L (3.5-5.1); Protein, Total 6.5 g/dL (6.4-8.2); Sodium Level 139 mmol/L (136-145)
[2022-07-01 12:48] LABS: Absolute Lymphocyte Count 1.66 X10^3/uL (0.83-4.51); Absolute Neutrophil Count 6.9 X10^3/uL (2.0-7.7); Basophil# 0.03 X10^3/uL; Basophil% 0.3 % (0-1); Eosinophil# 0.23 X10^3/uL; Eosinophils% 2.4 % (0-5); Hematocrit 39.8 % (37-47); Hemoglobin 12.6 g/dL (12.0-15.0); Lymphocyte # 1.66 X10^3/ul (0.83-4.51); Lymphocyte % 17.4 % (19-41); Mean Corp Hgb Conc 31.7 g/dL (32-36); Mean Corpuscular Hgb 31.1 pg (27.0-32.0); Mean Corpuscular Volume 98.3 fL (81-99); Monocyte# 0.59 X10^3/uL; Monocyte% 6.2 % (0-10); NRBC Flagged by Analyzer 0 % (0-5); Neutrophil # 6.93 X10^3/uL (2.7-7.7); Neutrophil % 72.9 % (47-70); Platelet Count 386 K/mm3 (150-450); RBC Distribution Width CV 12.5 % (11.6-14.6); RBC Distribution Width SD 45.2 fl (35.1-43.9); Red Blood Count 4.05 M/mm3 (4.2-5.4); White Blood Count 9.5 K/mm3 (4.4-11.0)
== END | disposition home or self-care (01) ==
LOC: BIMLAB 09:52
PROVIDERS: PCP Internal Medicine; Referring Provider Internal Medicine; Visit Provider Internal Medicine
DX: R19.7 Diarrhea, unspecified (principal)
CPT/HCPCS: 36415; 80053; 85025

== ENCOUNTER → 2022-07-02 | Outpatient (CLI) | payer MEDICARE, BC, SELFPAY | END | disposition home or self-care (01) | LOC: LABSPEC 11:38 | PROVIDERS: PCP Internal Medicine; Referring Provider Internal Medicine; Visit Provider Internal Medicine | DX: R19.7 Diarrhea, unspecified (principal) | CPT/HCPCS: 87493 ==

== ENCOUNTER 2022-09-26 11:00 | Outpatient (RCR) | payer MEDICARE, BC, SELFPAY ==
--- NOTE | 2022-08-13 12:36 | HP.PTEVAL_ITS ---
Patient's Visit Information KIEL ENGLISH is a 66 year old F referred to Physical Therapy by JENNIFER POLLACK with a diagnosis of L shoulder scope s/p 07/17/22 [facility] [place]. Date of Evaluation: 08/13/22 Physical Therapist: Blayne Benito, DPT, OCS, CSCS - Visit Plan Frequency: 1-2x /Week Duration: 4-6 Weeks Plan: weekly to progress HEP(pt choice). Ensure ROM improving and get more agressive, progress to phase 3 and resistance ex as tolerated and return to [facility], educate on management. Next session phase 3 if doing well and ROM improved. - Subjective 07/17/22 had L shoulder and it went well. She got her shoulder cleaned out. Has been doing pendulum at home and in sling but is now able to discontinue sling and use it as able. No more precautions. Feels weak on L shoulder. Hard to carry purse on that side. Sleep is OK unless she rolls on it. No continuous pain, just if she reaches or jolts it. Retired. Has 4 acres and garden adn wants to get back quick. Basic ADLs shower, dress is getting done, reaching up to back of head is hard. - Pain L shoulder upper arm. Pain Intensity (Out of 10): 0 Pain Intensity Range: 0, 6 Comment: only wiht jolting. - Objective Walks I and transfers I bed and chair today. Good balance. cervical aROM is full and without pain, scapular ROM is full and without pain B. Incisions have healed well and no excessive redness heat or swelling, slightly tender to touch. elbow and wrist and hand AROM WFL and without pain. R shoulder AROM 160 flexi on, 80 ext rotation and l2 IR. L shoulder AROM 125 flexion, 100 abduction, 50 er, psis IR. PROM L shoulder if relaxed to 135 flexion, 105 abduction, 60 ex rotation and 70 IR at 80 abduction limited by patient report pain. L shoulder strength 3+ with pain flexion, er, abduction, R shoulder 4. elbow and wrist 4 B. - Balance/Special Test Scores Quick DASH Score: 59.0900 - Goals Goal 1:: 150 arom flexion, abduction and 75 er without pain to make ADLs easier Goal Time Frame: 2-4 Weeks Goal 2:: patient do hair behind head without noticing pain Goal Time Frame: 4-6 Weeks Goal 3:: Reach overhead to cupboards easily Goal Time Frame: 4-6 Weeks Goal 4:: yard work back to normal Goal Time Frame: 4-6 Weeks Goal 5:: I appropirate HEP to minimize future problems Goal Time Frame: 4-6 Weeks Goal 6:: quick dash score 15 or better Goal Time Frame: 4-6 Weeks - Rehabilitation Potential Physical Therapy Diagnosis: L shoulder stiffness and weakness post surgery Rehabilitation Potential: Good - Anticipated Interventions Patient/Client Instruction: Educate patient on: Condition, Plan of Care For the Purpose of:: To decrease pain, To increase ROM, To improve nutrient delivery to tissue, To improve muscle performance and motor function, To increase tolerance to activity/condition/position Therapeutic Exercise to Include: Strength training, Flexibilty training, Passive ROM, Active ROM For the Purpose of:: To decrease pain, To decrease swelling/inflammation, To increase ROM, To improve nutrient delivery to tissue, To improve muscle performance and motor function, To increase tolerance to activity/condition/position Manual Therapy Techniques to Include: Passive ROM, Soft tissue mobilization For the Purpose of:: To decrease pain, To increase ROM Cryotherapy (ice pack, ice massage): Yes For the Purpose of:: To decrease swelling/inflammation Thank you for the opportunity to evaluate your patient. For Medicare and Medicare HMO plans, please review the plan of care and approve it. It will need to be FAXED BACK to us at [phone] for Medicare purposes. For Medicare only, by signing this I certify the plan of care. Please let me know if there are questions or concerns regarding this plan of care. Physician Signature: Date:
--- NOTE | 2022-09-26 11:15 | HP.PTDCSUM ---
It has been my pleasure to treat KIEL ENGLISH referred by JENNIFER POLLACK, with the diagnosis of L shoulder scope s/p 07/17/22 [facility] [place] for a total of 5 visit(s). Discharge Date: 09/26/22 Please see the following information for a summary of their discharge status. 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 Had been good up to that point. Was doing wonderful and exercise going well. Yesterday was 10/05 much of day mostly with movement. L shoulder upper arm. Pain Intensity (Out of 10): 1 % Improvement: 80 Objective/Function: 148 flexion 150 abduction L. 55 ext rotation and L1 IR. sore to move it today. strtength is 4in flexiona dn abduction adn 4+ IR and biceps and 4- er. Goal 1:: 150 arom flexion, abduction and 75 er without pain to make ADLs easier Goal Progress: Progressing Goal 2:: patient do hair behind head without noticing pain Goal Progress: Goal Met Goal 3:: Reach overhead to cupboards easily Goal Progress: Goal Met Goal 4:: yard work back to normal Goal Progress: Goal Met, sore Goal 5:: I appropirate HEP to minimize future problems Goal Progress: Goal Met Goal 6:: quick dash score 15 or better Goal Progress: Progressing Plan: d/c to HEP, pt to avoid overactivity like Friday as much as possible and recommended extension pole on roller if needs to pain more. If there are questions or concerns regarding this patient's physical therapy, please feel free to call me at [phone]. Thank you for the referral of this patient. Sincerely, Blayne Benito, DPT, OCS, CSCS Balance/Gait/Functional tests - Balance/Special Test Scores Quick DASH Score: 22.7250
== END 2022-09-26 19:00 | disposition home or self-care (01) ==
LOC: PT 11:00
PROVIDERS: PCP Internal Medicine
DX: Z47.89 Encounter for other orthopedic aftercare (principal); M75.42 Impingement syndrome of left shoulder
CPT/HCPCS: 97110; 97161; 97164

== ENCOUNTER → 2022-11-11 | Outpatient (CLI) | payer MEDICARE, BC, SELFPAY ==
--- NOTE | 2022-11-11 10:52 | MRI_ITS ---
STUDY: BILATERAL BREAST MR WITHOUT AND WITH CONTRAST REASON FOR EXAM: Female, 67 years old. Dense breasts with prior left mastectomy in 2020. Follow-up. TECHNIQUE: Multi-sequence multi-echo imaging of both breasts was performed with a dedicated breast coil. T1-weighted and T2-weighted images were performed before the administration of contrast. T1-weighted images were also performed after the intravenous administration of 15 mL of Clariscan contrast. COMPARISON: Prior breast MRI study with contrast dated November 08, 2021 and May 30, 2020. Right mammogram dated May 21, 2022. FINDINGS: LEFT BREAST: Changes of left mastectomy. No abnormal enhancing masses. RIGHT BREAST: The breast tissue is scattered fibroglandular densities with minimal background enhancement. There are no abnormal enhancing masses or areas of non-mass enhancement in the left breast. There are no enlarged or abnormal lymph nodes. There is no abnormality in the visualized regions of the chest or liver. MRI/Breast Bilateral W/O and W IMPRESSION: Changes of left mastectomy. No other abnormality. Alternating right mammogram with breast MRI with contrast would be an appropriate follow-up for this patient. CATEGORY: BIRADS Category 2: Benign. A letter regarding these results will be sent to the patient by the facility within 30 days. Electronically Signed: Abelino Arvizu MD at 13:06 EDT ,
[2022-11-11 11:19] LABS: CREATININE FINGERSTICK 1.2 mg/dL (0.55-1.02)
== END | disposition home or self-care (01) ==
PROVIDERS: PCP Internal Medicine; Referring Provider Internal Medicine Hematology & Oncology; Visit Provider Internal Medicine Hematology & Oncology
DX: R92.2 Inconclusive mammogram (principal); Z90.12 Acquired absence of left breast and nipple
CPT/HCPCS: 77049; A9575; A4216; C8908

== ENCOUNTER → 2023-01-03 | Outpatient (CLI) | payer MEDICARE, BC, SELFPAY ==
--- NOTE | 2023-01-03 15:31 | MRI_ITS ---
EXAM: MR HEAD WITHOUT AND WITH INTRAVENOUS CONTRAST CLINICAL INDICATION: HEADACHES DAILY, OCC DOUBLE VISION, hx breast cancer TECHNIQUE: Multiplanar and multisequence MR images of the brain were obtained without and with intravenous contrast. CONTRAST: IV 18 cc Clariscan COMPARISON: CT head, 08/24/2020 and MRI brain, 07/13/2020. FINDINGS: BRAIN AND EXTRA-AXIAL SPACES: No significant abnormality. No intra- or extra-axial hemorrhage. No evidence of acute infarct. No intracranial mass or mass effect. There is preservation of the bradley/white matter interface. Posterior fossa structures are unremarkable. Ventricles are appropriate for age. No hydrocephalus. Basal cisterns are patent. SELLA: No significant abnormality. Normal sella turcica, pituitary gland, infundibular stalk, optic chiasm and hypothalamus. AUDITORY SYSTEM: No significant abnormality. The internal auditory canals are patent. BONES/JOINTS: No significant abnormality. No discrete lytic or blastic abnormalities. SINUSES: Normal as visualized. Clear. MASTOID AIR CELLS: Normal as visualized. Clear. ORBITS: Bilateral ocular lens extraction presumptively for the treatment of cataracts. Otherwise, no acute orbital pathology. VASCULATURE: Normal as visualized. Normal flow voids in the major intracranial circulation. MRI/Brain W/WO Contrast IMPRESSION: No acute intracranial pathology. No evidence of intracranial metastases, infarct, or hemorrhage. Electronically Signed: Edinson Maldonado DO at 21:46 EDT ,
== END | disposition home or self-care (01) ==
PROVIDERS: PCP Internal Medicine; Referring Provider Internal Medicine Hematology & Oncology; Visit Provider Internal Medicine Hematology & Oncology
DX: R51.9 Headache, unspecified (principal)
CPT/HCPCS: 70553; A9575

== ENCOUNTER → 2023-04-14 | Outpatient (CLI) | payer MEDICARE, BC, SELFPAY ==
[2023-04-14 11:19] LABS: Erythrocyte Sedimentation Rate 3 mm/hr (0-30)
[2023-04-14 11:22] LABS: Absolute Lymphocyte Count 2.01 X10^3/uL (0.83-4.51); Absolute Neutrophil Count 8.2 X10^3/uL (2.0-7.7); Basophil# 0.07 X10^3/uL; Basophil% 0.6 % (0-1); Eosinophil# 0.13 X10^3/uL; Eosinophils% 1.2 % (0-5); Hematocrit 41.6 % (37-47); Hemoglobin 13.3 g/dL (12.0-15.0); Lymphocyte # 2.01 X10^3/ul (0.83-4.51); Mean Corpuscular Hgb 31.3 pg (27.0-32.0); Mean Corpuscular Volume 97.9 fL (81-99); Monocyte# 0.64 X10^3/uL; Monocyte% 5.7 % (0-10); NRBC Flagged by Analyzer 0 % (0-5); Neutrophil % 73.5 % (47-70); Platelet Count 339 K/mm3 (150-450); RBC Distribution Width CV 12.6 % (11.6-14.6); Red Blood Count 4.25 M/mm3 (4.2-5.4); White Blood Count 11.2 K/mm3 (4.4-11.0)
[2023-04-14 11:54] LABS: ALB/GLOB Ratio 1.1 RATIO (0.9-2.4); AST(SGOT) 12 U/L (15-37); Alanine Aminotransfer ALT/SGPT 15 U/L (13-56); Albumin, Serum 3.7 g/dL (3.2-5.0); Alkaline Phosphatase 61 U/L (45-117); Anion Gap 6 (5-15); BUN 18 mg/dL (7-18); BUN/Creat Ratio 16.8 RATIO (10-20); CRP 4.41 mg/L (0.0-3.0); Chloride 108 mmol/L (98-107); Creatinine, Serum 1.07 mg/dL (0.55-1.02); EST Glomerular Filtration Rate 54 mL/min (>60); Est Glom Filt Rate - Afr Amer 66 mL/min (>60); Globulin 3.5 g/dL (2.2-4.2); Glucose 98 mg/dL (74-106); Potassium 3.6 mmol/L (3.5-5.1); Protein, Total 7.2 g/dL (6.4-8.2); Rheumatoid Factor < 10.0 IU/mL (<15); Sodium Level 141 mmol/L (136-145)
[2023-04-14 12:19] LABS: Hepatitis B Surface Antibody Non-Reactive; Hepatitis B Surface Antigen Non-Reactive (Nonreactive); Hepatitis C Antibody Non-Reactive (Nonreactive)
[2023-04-15 12:09] LABS: ANTINUCLEAR ANTIBODIES DIRECT Negative (Negative)
[2023-04-15 13:08] LABS: CCP IgG Antibodies 5 units (0-19)
== END | disposition home or self-care (01) ==
LOC: LAB 10:58
PROVIDERS: PCP Internal Medicine; Referring Provider Internal Medicine Rheumatology; Visit Provider Internal Medicine Rheumatology
DX: M06.4 Inflammatory polyarthropathy (principal); M79.7 Fibromyalgia; M19.041 Primary osteoarthritis, right hand; M47.897 Other spondylosis, lumbosacral region
CPT/HCPCS: 36415; 80053; 85025; 85652; 86038; 86140; 86200; 86431; 86706; 86803; 87340

== ENCOUNTER → 2023-05-27 | Outpatient (CLI) | payer MEDICARE, BC, SELFPAY ==
--- NOTE | 2023-05-27 09:52 | BI_ITS ---
MAMMOGRAPHY - UNILATERAL SCREENING: RIGHT BREAST REASON FOR EXAM: Female, 67 years old. Routine annual screening examination (unilateral). PERTINENT HISTORY: Personal history of breast cancer. Prior left mastectomy. Grandmother with breast cancer. Aunt with breast cancer. TECHNIQUE: Digital unilateral breast bhavik (3D mammographic acquisition) in the CC and MLO projections. 2-D mediolateral oblique (MLO) and craniocaudad (CC) views of both breasts were obtained. CAD: Full Field Digital Mammography with Computer Added Detection was performed. COMPARISON: Comparison is made with prior study dated November 18, 2022 and May 15, 2021. FINDINGS: Breast Composition: The breasts are heterogeneously dense, which may obscure small masses. There are no dominant masses or suspicious calcifications. No other significant abnormalities are identified. There has been no significant change since the prior study. BI/SCREEN MAMM (CAD) W/BHAVIK UNI R IMPRESSION: Stable unilateral screening mammogram. Yearly follow-up mammogram recommended. (A) ASSESSMENT CATEGORY: BIRADS Category 1: Negative. A letter regarding these results will be sent to the patient by the facility within 30 days. Approximately 10% of breast cancers are not detected by mammography. A normal mammogram should not delay biopsy of a clinically suspicious abnormality. [id number] Electronically Signed: Imer Gutierrez MD at 14:12 EST ,
--- NOTE | 2023-05-27 09:58 | BD_ITS ---
STUDY: DUAL ENERGY X-RAY ABSORPTIOMETRY / DXA REASON FOR EXAM: Female, 67 years old. SCREENING TECHNIQUE: Bone Mineral Density (BMD) measurements of lumbar spine and bilateral hips were obtained. COMPARISON: Comparison is made with prior study dated November 08, 2020. FINDINGS: Lumbar Spine (L1-L4): g/cm2 (0.831) / T-score (-1.7) / Z-score (0.3) Findings are suggestive of osteopenia with a moderate fracture risk. Left Femur Total: g/cm2 (0.792) / T-score (-1.2) / Z-score (0.2) Left Femoral Neck: g/cm2 (0.699) / T-score (-1.4) / Z-score (0.4) Right Femur Total: g/cm2 (0.843) / T-score (-0.8) / Z-score (0.6) Right Femoral Neck: g/cm2 (0.666) / T-score (-1.6) / Z-score (0.1) The T-Scores on the most recent prior examination were: Lumbar Spine (L1-L4): There has been improvement of bone density since the previous examination. Left Femur Total: which represents an improvement of 5.9%. Right Femur Total: which represents an improvement of 8.1%. BD/Dexa Bone Density Study IMPRESSION: The patient is considered osteopenic as outlined below according to World Hermes Organization (WHO) criteria with a moderate fracture risk. There has been improvement of bone density since the previous examination. Reference Information: The T-score is the number of standard deviations above or below the standard which is normal for young adults at their peak bone mineral density. The World Health Organization (WHO) interprets the T-scores as follows: Above -1 Normal bone density Between -1 and -2.5 Osteopenia Equal to / or below -2.5 Osteoporosis As a practical clinical guideline, osteopenia may be graded as follows: Mild -1 through -1.5 Moderate -1.6 through -2.0 Severe -2.1 through -2.4 The Z-score is the number of standard deviations above or below age-matched controls. A Z-score of less than -1.5 would be considered abnormal. References: 1. NIH Osteoporosis and Related Bone Diseases www osteo.org 2. International Society for Clinical Densitometry www iscd.org 3. National Osteoporosis Foundation www nof.org Electronically Signed: Imer Gutierrez MD at 13:21 EST ,
--- NOTE | 2023-05-27 10:35 | BD_ITS ---
STUDY: DUAL ENERGY X-RAY ABSORPTIOMETRY / DXA REASON FOR EXAM: Female, 67 years old. 733.13Collapse of vertebrae NOSBONE DENSITY REASON FOR EXAM TECHNIQUE: Bone Mineral Density (BMD) measurements of lumbar spine and bilateral hips were obtained. COMPARISON: None. FINDINGS: Lumbar Spine (L1-L4): g/cm2 ( ) / T-score ( ) / Z-score ( ) Findings are suggestive of with a fracture risk. Left Femur Total: g/cm2 ( ) / T-score ( ) / Z-score ( ) Left Femoral Neck: g/cm2 ( ) / T-score ( ) / Z-score ( ) Right Femur Total: g/cm2 ( ) / T-score ( ) / Z-score ( ) Right Femoral Neck: g/cm2 ( ) / T-score ( ) / Z-score ( ) Right Forearm: g/cm2 ( ) / T-score ( ) / Z-score ( ) Left Forearm: g/cm2 ( ) / T-score ( ) / Z-score ( ) The T-Scores on the most recent prior examination were: Lumbar Spine (L1-L4): There has been of bone density since the previous examination. Left Femur Total: . Right Femur Total: . BD/Vert Fx Assess/Lat Bone Den IMPRESSION: The patient is considered as outlined below according to World Hermes Organization (WHO) criteria with a fracture risk. There has been of bone density since the previous examination. Reference Information: The T-score is the number of standard deviations above or below the standard which is normal for young adults at their peak bone mineral density. The World Health Organization (WHO) interprets the T-scores as follows: Above -1 Normal bone density Between -1 and -2.5 Osteopenia Equal to / or below -2.5 Osteoporosis As a practical clinical guideline, osteopenia may be graded as follows: Mild -1 through -1.5 Moderate -1.6 through -2.0 Severe -2.1 through -2.4 The Z-score is the number of standard deviations above or below age-matched controls. A Z-score of less than -1.5 would be considered abnormal. References: 1. NIH Osteoporosis and Related Bone Diseases www osteo.org 2. International Society for Clinical Densitometry www iscd.org 3. National Osteoporosis Foundation www nof.org Electronically Signed: Imer Gutierrez MD at 13:22 EST ,
--- NOTE | 2023-05-27 12:44 | CT_ITS ---
STUDY: LOW DOSE CT LUNG CANCER SCREENING REASON FOR EXAM: Female, 67 years old. Lung cancer screening -- and gt;20 pk yr hx; former smoker; asymptomatic RADIATION DOSAGE (If Supplied By Facility): CTDIvol = ( 2.39 ) mGy, DLP = ( 76.83 ) mGycm TECHNIQUE: No contrast was administered. Low dose technique was utilized (average mAS-38 and kVp 120). 1.25 mm axial source images with a slice interval of 1.25-mm were reconstructed in lung windows. 2.5 mm axial source images with a slice interval of 2.5-mm were reconstructed in lung windows. 5.0 mm axial source images with a slice interval of 5.0-mm were reconstructed in soft tissue windows. COMPARISON: Comparison is made with prior study dated 05/21/2022. NODULES: No suspicious nodules are seen. Emphysema: Stable mild degree of emphysematous changes. Minimal linear scarring in the posterior medial segment of the left lower lobe. Endobronchial lesion: None Aorta: Atherosclerotic plaque formation of the aortic arch. CORONARY ARTERIES: Coronary artery calcification is seen. Heart: Unremarkable Pulmonary artery: Unremarkable Mediastinal nodes: Unremarkable Other chest and abdominal findings: CT/Low Dose CT Lung Screening IMPRESSION: Lung-RADS category 2 - Continue annual screening with LDCT in 12 months. IMPORTANT NOTES FOR USE: ACR Lung-RADS Version 1.1 Assessment Categories Release Date: 2018 Category: Coded 0-4 bases on nodule(s) with highest degree of suspicion. Negative screen is defined as categories 1 and 2; a positive screen is defined as categories 3 and 4. Category 3 and 4A nodules that are unchanged on interval CT should be coded as category 2, and individuals returned to screening in 12 months. Category 4X: Category 3 or 4 nodules with additional imaging findings that increase the suspicion of lung cancer, such as spiculation, GGN that doubles in size in 1 year, enlarged lymph notes, etc. Category Modifiers: S (significant finding unrelated to lung cancer) Electronically Signed: Imer Gutierrez MD at 13:38 EST ,
== END | disposition home or self-care (01) ==
LOC: OPBD 09:52
PROVIDERS: PCP Internal Medicine; Referring Provider Internal Medicine Hematology & Oncology; Visit Provider Internal Medicine Hematology & Oncology
DX: Z12.31 Encounter for screening mammogram for malignant neoplasm of breast (principal); M48.50XA Collapsed vertebra, not elsewhere classified, site unspecified, initial encounter for fracture; M81.0 Age-related osteoporosis without current pathological fracture; Z12.2 Encounter for screening for malignant neoplasm of respiratory organs; Z87.891 Personal history of nicotine dependence
CPT/HCPCS: 71271; 77063; 77067; 77080; 77086

== ENCOUNTER → 2023-07-02 | Outpatient (CLI) | payer MEDICARE, BC, SELFPAY ==
--- OUTSIDE RECORDS SUMMARY | 2023-07-02 10:48 | XMS RPT_ITS | CCD ---
Author Name Unknown Address [address] [place] [address] Organization [facility] Care Team Providers Care [facility] Laborer Name Role Phone Asif Drew Primary Care Provider [phone] Provider, External Unavailable Isi Pan Unavailable Unavailable Sergo Yost Unavailable Encounters Encounter Date Encounter Type Care Provider Facility Start: 06-19-2020 End: 06-19-2020 Subsequent hospital visit by physician Sergo Yost Work Phone: Lab Non-Patient Plan of Treatment Date Care Activity Detail Author Start: 1973 Hepatitis B (1 of 3 - Risk 3-dose series) Hepatitis B (1 of 3 - Risk 3-dose series) [facility] Start: 1970 COVID-19 (1) COVID-19 (1) [facility] Start: 1970 MenB (1 of 2 - MenB 2-Dose Series) MenB (1 of 2 - MenB 2-Dose Series) [facility] Start: 1961 Tetanus Diphtheria a nd Pertussis Vaccines (1 - Tdap) Tetanus Diphtheria and Pertussis Vaccines (1 - Tdap) [facility] Start: 09[birth year]29-1955 Hepatitis A (1 of 2 - Risk 2-dose series) Hepatitis A (1 of 2 - Risk 2-dose series) [facility] Start: 09-29-1955 MMR (1 of 1 - Standa rd series) MMR (1 of 1 - Standard series) [facility] Start: 09-29-1955 Varicella (1 of 2 - 2-dose childhood series) Varicella (1 of 2 - 2-dose childhood series) [facility] Payers Date Payer Category Payer Medicare MEDICARE MEDICAR E PART A AND B [id number] 2019-Present [address] [place] [address] [id number] 2015 Unknown ELIO BALLARD BS PPO [id number] 2015-Present [address] [place] [address] 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 This clinical summary was aggregated from multiple sources. Caution should be exercised in using it in the provision of clinical care. This summary normalizes information from multiple sources, and as a consequence, information in this document may materially change the coding, format and clinical context of patient data. In addition, data may be omitted in some cases. CLINICAL DECISIONS SHOULD BE BASED ON THE PRIMARY CLINICAL RECORDS. [employer] provides no warranty or guarantee of the accuracy or completeness of information in this document.
[2023-07-02 13:04] LABS: ALB/GLOB Ratio 1.1 RATIO (0.9-2.4); AST(SGOT) 16 U/L (15-37); Alanine Aminotransfer ALT/SGPT 19 U/L (13-56); Albumin, Serum 3.2 g/dL (3.2-5.0); Alkaline Phosphatase 54 U/L (45-117); Anion Gap 4 (5-15); BUN 19 mg/dL (7-18); BUN/Creat Ratio 15.4 RATIO (10-20); Chloride 108 mmol/L (98-107); Cholesterol 188 mg/dL (200); Creatinine, Serum 1.23 mg/dL (0.55-1.02); EST Glomerular Filtration Rate 46 mL/min (>60); Est Glom Filt Rate - Afr Amer 56 mL/min (>60); Globulin 2.9 g/dL (2.2-4.2); Glucose 93 mg/dL (74-106); High Density Lipoprotein 77 mg/dL; Potassium 4.7 mmol/L (3.5-5.1); Protein, Total 6.1 g/dL (6.4-8.2); Sodium Level 143 mmol/L (136-145); Triglycerides 68 mg/dL; Very Low Density Lipoprotein 14 mg/dL (5-40)
== END | disposition home or self-care (01) ==
LOC: BIMLAB 10:15
PROVIDERS: PCP Internal Medicine; Visit Provider Internal Medicine
DX: E78.5 Hyperlipidemia, unspecified (principal); I10 Essential (primary) hypertension
CPT/HCPCS: 36415; 80053; 80061

== ENCOUNTER 2023-07-10 12:57 | Outpatient (CLI) | payer MEDICARE, BC, SELFPAY ==
--- NOTE | 2023-07-10 13:00 | EKG12_ITS ---
Test Reason : TATE Blood Pressure : / mmHG Vent. Rate : 056 BPM Atrial Rate : 056 BPM P-R Int : 162 ms QRS Dur : 082 ms QT Int : 414 ms P-R-T Axes : 061 020 056 degrees QTc Int : 399 ms Sinus bradycardia Otherwise normal ECG Confirmed by HUMBERTO DAVIS, SARAH ([id number]), industrial editor SHERRIE DOSHI ([id number]) on 07/11/2023 2:10:20 PM Referred By: Felicia Marrufo Confirmed By:SARAH PAUL MD
== END 2023-07-10 23:59 | disposition home or self-care (01) ==
LOC: PSN 13:00
PROVIDERS: PCP Internal Medicine; Referring Provider Nurse Practitioner Family; Visit Provider Nurse Practitioner Family
DX: R00.2 Palpitations (principal); C50.112 Malignant neoplasm of central portion of left female breast; Z17.0 Estrogen receptor positive status [ER+]
CPT/HCPCS: 36415; 80053; 85025; 93005; 96372; J0897

== ENCOUNTER → 2023-07-11 | Outpatient (CLI) | payer MEDICARE, BC, SELFPAY ==
--- NOTE | 2023-07-11 07:58 | US_ITS ---
STUDY: ULTRASOUND BREAST - RIGHT REASON FOR EXAM: Female, 67 years old. Palpable lump in the right breast. TECHNIQUE: Axial and longitudinal images of the RIGHT breast were performed with a high resolution ultrasound transducer. # OF IMAGES: 43 COMPARISON: None. FINDINGS: RIGHT Breast: The lower inner quadrant of the right breast was examined with ultrasound. No solid or cystic masses seen. US/Breast Limited Unilateral IMPRESSION: Unremarkable targeted ultrasound of the inner lower quadrant of the right breast. ASSESSMENT CATEGORY: BIRADS Category 1: Negative. A letter regarding these results will be sent to the patient by the facility within 30 days. Electronically Signed: Imer Gutierrez MD at 13:59 EDT ,
--- OUTSIDE RECORDS SUMMARY | 2023-07-11 08:06 | XMS RPT_ITS | CCD ---
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: Lab Non-Patient Plan of Treatment Date Care Activity Detail Author Start: 1973 Hepatitis B (1 of 3 - Risk 3-dose series) Hepatitis B (1 of 3 - Risk 3-dose series) [facility] Start: 1970 COVID-19 (1) COVID-19 (1) [facility] Start: 1970 MenB (1 of 2 - MenB 2-Dose Series) MenB (1 of 2 - MenB 2-Dose Series) [facility] Start: 1961 Tetanus Diphtheria a nd Pertussis Vaccines (1 - Tdap) Tetanus Diphtheria and Pertussis Vaccines (1 - Tdap) [facility] Start: 09[birth year]29-1956 Hepatitis A (1 of 2 - Risk 2-dose series) Hepatitis A (1 of 2 - Risk 2-dose series) [facility] Start: 09-29-1955 MMR (1 of 1 - Standa rd series) MMR (1 of 1 - Standard series) [facility] Start: 09-29-1955 Varicella (1 of 2 - 2-dose childhood series) Varicella (1 of 2 - 2-dose childhood series) [facility] Payers Date Payer Category Payer Medicare MEDICARE MEDICAR E PART A AND B [id number] 2019-Present [address] [place] [address] [id number] 2015 Unknown ELIO BALLARD BS PPO [id number] 2015-Present [address] [place] [address] 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 [employer] provides no warranty or guarantee of the accuracy or completeness of information in this document.
== END | disposition home or self-care (01) ==
LOC: OPBI 07:56
PROVIDERS: PCP Internal Medicine; Referring Provider Nurse Practitioner Family; Visit Provider Nurse Practitioner Family
DX: N64.4 Mastodynia (principal)
CPT/HCPCS: 76642

== ENCOUNTER → 2023-07-29 | Outpatient (CLI) | payer MEDICARE, BC, SELFPAY ==
[2023-07-29 12:40] LABS: Absolute Lymphocyte Count 1.76 X10^3/uL (0.83-4.51); Absolute Neutrophil Count 6.5 X10^3/uL (2.0-7.7); Basophil# 0.11 X10^3/uL; Basophil% 1.2 % (0-1); Eosinophil# 0.25 X10^3/uL; Eosinophils% 2.7 % (0-5); Hematocrit 38.9 % (37-47); Hemoglobin 12.5 g/dL (12.0-15.0); Lymphocyte # 1.76 X10^3/ul (0.83-4.51); Lymphocyte % 18.7 % (19-41); Mean Corp Hgb Conc 32.1 g/dL (32-36); Mean Corpuscular Hgb 31.3 pg (27.0-32.0); Mean Corpuscular Volume 97.3 fL (81-99); Mean Platelet Vol. 9.8 fl (6.2-12.0); Monocyte# 0.64 X10^3/uL; Monocyte% 6.8 % (0-10); NRBC Flagged by Analyzer 0 % (0-5); Neutrophil # 6.48 X10^3/uL (2.7-7.7); Neutrophil % 68.7 % (47-70); Platelet Count 417 K/mm3 (150-450); RBC Distribution Width CV 12.8 % (11.6-14.6); RBC Distribution Width SD 45.3 fl (35.1-43.9); White Blood Count 9.4 K/mm3 (4.4-11.0)
[2023-07-29 13:02] LABS: ALB/GLOB Ratio 1.1 RATIO (0.9-2.4); AST(SGOT) 11 U/L (15-37); Alanine Aminotransfer ALT/SGPT 16 U/L (13-56); Albumin, Serum 3.3 g/dL (3.2-5.0); Alkaline Phosphatase 52 U/L (45-117); Anion Gap 5 (5-15); BUN 21 mg/dL (7-18); BUN/Creat Ratio 16.5 RATIO (10-20); Calcium,Total 9.1 mg/dL (8.5-10.1); Chloride 107 mmol/L (98-107); Creatinine, Serum 1.27 mg/dL (0.55-1.02); EST Glomerular Filtration Rate 44 mL/min (>60); Est Glom Filt Rate - Afr Amer 54 mL/min (>60); Globulin 3.1 g/dL (2.2-4.2); Glucose 96 mg/dL (74-106); Potassium 3.9 mmol/L (3.5-5.1); Protein, Total 6.4 g/dL (6.4-8.2); Sodium Level 142 mmol/L (136-145)
== END | disposition home or self-care (01) ==
LOC: LAB 11:40
PROVIDERS: PCP Internal Medicine; Referring Provider Internal Medicine Rheumatology; Visit Provider Internal Medicine Rheumatology
DX: M06.4 Inflammatory polyarthropathy (principal); K58.0 Irritable bowel syndrome with diarrhea; Z79.899 Other long term (current) drug therapy
CPT/HCPCS: 36415; 80053; 85025

== ENCOUNTER → 2023-10-27 | Outpatient (CLI) | payer MEDICARE, BC, SELFPAY ==
[2023-10-27 14:36] LABS: Absolute Lymphocyte Count 1.75 X10^3/uL (0.83-4.51); Absolute Neutrophil Count 7.6 X10^3/uL (2.0-7.7); Basophil# 0.06 X10^3/uL; Basophil% 0.6 % (0-1); Eosinophil# 0.22 X10^3/uL; Eosinophils% 2.1 % (0-5); Hematocrit 40.5 % (37-47); Lymphocyte # 1.75 X10^3/ul (0.83-4.51); Lymphocyte % 16.7 % (19-41); Mean Corp Hgb Conc 32.1 g/dL (32-36); Mean Corpuscular Hgb 31.5 pg (27.0-32.0); Mean Corpuscular Volume 98.1 fL (81-99); Mean Platelet Vol. 9.5 fl (6.2-12.0); Monocyte# 0.65 X10^3/uL; Monocyte% 6.2 % (0-10); NRBC Flagged by Analyzer 0 % (0-5); Neutrophil % 72.6 % (47-70); Platelet Count 370 K/mm3 (150-450); RBC Distribution Width CV 12.7 % (11.6-14.6); RBC Distribution Width SD 45.4 fl (35.1-43.9); Red Blood Count 4.13 M/mm3 (4.2-5.4); White Blood Count 10.5 K/mm3 (4.4-11.0)
[2023-10-27 15:02] LABS: ALB/GLOB Ratio 1.1 RATIO (0.9-2.4); AST(SGOT) 12 U/L (15-37); Alanine Aminotransfer ALT/SGPT 22 U/L (13-56); Albumin, Serum 3.5 g/dL (3.2-5.0); Alkaline Phosphatase 61 U/L (45-117); Anion Gap 5 (5-15); BUN 18 mg/dL (7-18); BUN/Creat Ratio 15.8 RATIO (10-20); Calcium,Total 9.1 mg/dL (8.5-10.1); Chloride 104 mmol/L (98-107); Creatinine, Serum 1.14 mg/dL (0.55-1.02); EST Glomerular Filtration Rate 50 mL/min (>60); Est Glom Filt Rate - Afr Amer 61 mL/min (>60); Globulin 3.2 g/dL (2.2-4.2); Glucose 88 mg/dL (74-106); Potassium 3.6 mmol/L (3.5-5.1); Protein, Total 6.7 g/dL (6.4-8.2); Sodium Level 139 mmol/L (136-145)
== END | disposition home or self-care (01) ==
LOC: LAB 13:24
PROVIDERS: PCP Internal Medicine; Referring Provider Internal Medicine Rheumatology; Visit Provider Internal Medicine Rheumatology
DX: M06.4 Inflammatory polyarthropathy (principal); Z79.899 Other long term (current) drug therapy
CPT/HCPCS: 36415; 80053; 85025

== ENCOUNTER 2023-11-21 10:50 | Outpatient (CLI) | payer MEDICARE, BC, SELFPAY ==
--- NOTE | 2023-11-21 11:07 | MRI_ITS ---
STUDY: BILATERAL BREAST MR WITHOUT AND WITH CONTRAST REASON FOR EXAM: Female, 68 years old. Dense breasts. Screening for breast cancer. TECHNIQUE: Multi-sequence multi-echo imaging of both breasts was performed with a dedicated breast coil. T1-weighted and T2-weighted images were performed before the administration of contrast. T1-weighted images were also performed after the intravenous administration of 17 cc of Clariscan contrast. COMPARISON: Right breast ultrasound dated July 11, 2023, screening mammogram dated May 27, 2023 and MRI of the breasts dated November 11, 2022 FINDINGS: LEFT BREAST: Changes of left mastectomy. No abnormal enhancing masses. RIGHT BREAST: The breast tissue is scattered fibroglandular densities with minimal background enhancement. There are no abnormal enhancing masses or areas of non-mass enhancement in the left breast. There are no enlarged or abnormal lymph nodes. There is no abnormality in the visualized regions of the chest or liver. MRI/Breast Bilateral W/O and W IMPRESSION: Changes of left mastectomy. No other abnormality. Alternating right mammogram with breast MRI with contrast would be an appropriate follow-up for this patient. CATEGORY: BIRADS Category 2: Benign. A letter regarding these results will be sent to the patient by the facility within 30 days. Electronically Signed: Abelino Arvizu MD at 6:55 EDT ,
[2023-11-21 12:56] LABS: Absolute Lymphocyte Count 1.67 X10^3/uL (0.83-4.51); Absolute Neutrophil Count 7.9 X10^3/uL (2.0-7.7); Basophil# 0.06 X10^3/uL; Basophil% 0.6 % (0-1); Eosinophils% 0.9 % (0-5); Hematocrit 38.1 % (37-47); Hemoglobin 12.5 g/dL (12.0-15.0); Lymphocyte # 1.67 X10^3/ul (0.83-4.51); Lymphocyte % 15.9 % (19-41); Mean Corp Hgb Conc 32.8 g/dL (32-36); Mean Corpuscular Volume 97.4 fL (81-99); Mean Platelet Vol. 9.5 fl (6.2-12.0); Monocyte# 0.68 X10^3/uL; Monocyte% 6.5 % (0-10); NRBC Flagged by Analyzer 0 % (0-5); Neutrophil # 7.94 X10^3/uL (2.7-7.7); Neutrophil % 75.3 % (47-70); Platelet Count 378 K/mm3 (150-450); RBC Distribution Width CV 12.8 % (11.6-14.6); RBC Distribution Width SD 45.3 fl (35.1-43.9); Red Blood Count 3.91 M/mm3 (4.2-5.4); White Blood Count 10.5 K/mm3 (4.4-11.0)
[2023-11-21 13:28] LABS: ALB/GLOB Ratio 1.1 RATIO (0.9-2.4); AST(SGOT) 20 U/L (15-37); Alanine Aminotransfer ALT/SGPT 23 U/L (13-56); Albumin, Serum 3.5 g/dL (3.2-5.0); Alkaline Phosphatase 55 U/L (45-117); Anion Gap 4 (5-15); BUN 18 mg/dL (7-18); Calcium,Total 8.9 mg/dL (8.5-10.1); Chloride 107 mmol/L (98-107); Creatinine, Serum 1.06 mg/dL (0.55-1.02); EST Glomerular Filtration Rate 55 mL/min (>60); Est Glom Filt Rate - Afr Amer 66 mL/min (>60); Globulin 3.1 g/dL (2.2-4.2); Glucose 88 mg/dL (74-106); Protein, Total 6.6 g/dL (6.4-8.2); Sodium Level 138 mmol/L (136-145)
== END 2023-11-21 23:59 | disposition home or self-care (01) ==
PROVIDERS: PCP Internal Medicine; Visit Provider Nurse Practitioner Family
DX: Z12.31 Encounter for screening mammogram for malignant neoplasm of breast (principal); M06.4 Inflammatory polyarthropathy; Z79.899 Other long term (current) drug therapy; M79.7 Fibromyalgia; R92.30 Dense breasts, unspecified; Z85.3 Personal history of malignant neoplasm of breast
CPT/HCPCS: 36415; 77049; 80053; 85025; A9575; A4216; C8908

== ENCOUNTER → 2024-01-02 | Outpatient (CLI) | payer MEDICARE, BC, SELFPAY ==
[2024-01-02 08:38] LABS: Absolute Neutrophil Count 4.8 X10^3/uL (2.0-7.7); Basophil# 0.04 X10^3/uL; Basophil% 0.6 % (0-1); Eosinophil# 0.13 X10^3/uL; Eosinophils% 1.8 % (0-5); Hematocrit 37.4 % (37-47); Hemoglobin 11.9 g/dL (12.0-15.0); Lymphocyte % 21.2 % (19-41); Mean Corp Hgb Conc 31.8 g/dL (32-36); Mean Corpuscular Hgb 31.6 pg (27.0-32.0); Mean Corpuscular Volume 99.5 fL (81-99); Mean Platelet Vol. 9.2 fl (6.2-12.0); Monocyte# 0.46 X10^3/uL; Monocyte% 6.5 % (0-10); NRBC Flagged by Analyzer 0 % (0-5); Neutrophil # 4.84 X10^3/uL (2.7-7.7); Neutrophil % 68.2 % (47-70); Platelet Count 381 K/mm3 (150-450); RBC Distribution Width CV 13.3 % (11.6-14.6); RBC Distribution Width SD 48.4 fl (35.1-43.9); Red Blood Count 3.76 M/mm3 (4.2-5.4); White Blood Count 7.1 K/mm3 (4.4-11.0)
[2024-01-02 10:22] LABS: ALB/GLOB Ratio 1.1 RATIO (0.9-2.4); AST(SGOT) 15 U/L (15-37); Alanine Aminotransfer ALT/SGPT 18 U/L (13-56); Albumin, Serum 3.3 g/dL (3.2-5.0); Alkaline Phosphatase 53 U/L (45-117); Anion Gap 3 (5-15); BUN 24 mg/dL (7-18); BUN/Creat Ratio 19.8 RATIO (10-20); Calcium,Total 9.1 mg/dL (8.5-10.1); Chloride 110 mmol/L (98-107); Creatinine, Serum 1.21 mg/dL (0.55-1.02); EST Glomerular Filtration Rate 47 mL/min (>60); Est Glom Filt Rate - Afr Amer 57 mL/min (>60); Glucose 89 mg/dL (74-106); Potassium 3.7 mmol/L (3.5-5.1); Protein, Total 6.3 g/dL (6.4-8.2); Sodium Level 141 mmol/L (136-145)
== END | disposition home or self-care (01) ==
LOC: LAB 07:48
PROVIDERS: PCP Internal Medicine; Referring Provider Internal Medicine Rheumatology; Visit Provider Internal Medicine Rheumatology
DX: M06.4 Inflammatory polyarthropathy (principal); K58.0 Irritable bowel syndrome with diarrhea; Z79.899 Other long term (current) drug therapy
CPT/HCPCS: 36415; 80053; 85025

== ENCOUNTER → 2024-01-14 | Outpatient (CLI) | payer MEDICARE, BC, SELFPAY ==
--- NOTE | 2024-01-14 10:15 | RAD_ITS ---
STUDY: X-RAY - LUMBAR SPINE REASON FOR EXAM: Female, 68 years old. Pain. TECHNIQUE: 2 view(s) of the lumbar spine were obtained. COMPARISON: Lumbar spine MRI dated February 25, 2018 FINDINGS: Osteopenia. Slight increased lumbar lordosis. No scoliosis. Normal vertebral alignment. Diffuse mild lower thoracic and lumbosacral facet sclerosis most marked in the lower lumbosacral spine. Mild diffuse intervertebral disc space narrowing most marked at the lower thoracic region and L5-S1. Vascular calcification. RAD/Lumbar Spine 2 or 3 Views IMPRESSION: Osteopenia with mild lower thoracic and lumbosacral spondylosis as described. Electronically Signed: Abelino Arvizu MD at 11:14 EDT ,
--- NOTE | 2024-01-14 10:15 | RAD_ITS ---
STUDY: X-RAY - THORACIC SPINE REASON FOR EXAM: Female, 68 years old. Pain. TECHNIQUE: 3 view(s) of the thoracic spine were obtained. COMPARISON: None. FINDINGS: Osteopenia. Normal kyphosis of the thoracic spine. Minimal thoracolumbar scoliosis, predominantly dextroscoliosis in the lower thoracic spine. Diffuse mild intervertebral disc space narrowing with osteophytes. Vascular calcification. RAD/Thoracic Spine 3 Views IMPRESSION: Osteopenia with thoracolumbar scoliosis and diffuse mild thoracic and lumbosacral spondylosis. Electronically Signed: Abelino Arvizu MD at 11:13 EDT ,
== END | disposition home or self-care (01) ==
LOC: RAD 10:08
PROVIDERS: PCP Internal Medicine; Referring Provider Anesthesiology Pain Medicine; Visit Provider Anesthesiology Pain Medicine
DX: M51.34 Other intervertebral disc degeneration, thoracic region (principal); M51.36 Other intervertebral disc degeneration, lumbar region
CPT/HCPCS: 72072; 72100

== ENCOUNTER 2024-01-28 15:35 | Inpatient (IN) | payer MEDICARE, BC, SELFPAY ==
[2024-01-28 15:37] VITALS: BP 116/75; PULSE 77; RESP 16; TEMP 36.6; O2SAT 99; BMI 34.2
--- NOTE | 2024-01-28 15:40 | EX.ED.DYSGE1 ---
HPI History of Present Illness Chief Complaint: Abd Pain [facility] Medical History Insomnia History of breast cancer Dense breast tissue Screening for breast cancer Palpitation Breast pain, right Gastritis Ear ache Dermatitis Diarrhea Lumbar radiculopathy Left shoulder pain Microscopic colitis Colitis Diverticulitis Dry skin dermatitis Obstructive sleep apnea Chronic diarrhea Sleep apnea Hypersomnolence Dense breast tissue on mammogram Screening for thyroid disorder History of tobacco use Encounter for screening for malignant neoplasm of lung BCC (basal cell carcinoma), back Migraine Pain, eye, left ER+ (estrogen receptor positive status) Seasonal allergies Fibromyalgia Personal history of colon cancer Osteoporosis Cancer of left female breast Colon cancer Colon polyps Obesity Hyperlipidemia Asthma Anemia Vitamin D deficiency Herpes labialis Rheumatoid arthritis CKD (chronic kidney disease) History of pulmonary embolus (PE) Essential hypertension Chronic pain Anxiety Home Medications ?Medication ?Instructions ?Recorded ?Last Taken ?Type denosumab 60 mg/mL subcutaneous 60 mg subcut [id number] #1 mL 06/05/21 Unknown Rx syringe (Prolia) valacyclovir 1 gram tablet 1,000 mg PO DAILY PRN Outbreak 11/15/21 Unknown History (Valtrex) prednisone 10 mg tablet 10 mg PO DAILY PRN poly flair 07/02/23 Unknown History olmesartan 20 See Rx Instructions .Route 07/12/23 Unknown Rx mg-hydrochlorothiazide 12.5 mg .COMPLEX #90 tabs tablet anastrozole 1 mg tablet 1 mg PO DAILY #90 tabs 09/18/23 Unknown Rx epinephrine 0.3 mg/0.3 mL 0.3 mg (0.3 mL) IM Q5-15M PRN 09/18/23 Unknown Rx injection, auto-injector (EpiPen anaphylaxis #4 ea [id number]) hydroxychloroquine 200 mg tablet 200 mg PO BID 11/24/23 Unknown History (Plaquenil) trazodone 100 mg tablet 100 mg PO QHS Sleep 11/24/23 Unknown History albuterol sulfate 90 mcg/actuation 2 puff inhalation Q6H PRN Asthma 12/25/23 Unknown Rx aerosol inhaler #8.5 grams paroxetine HCl 30 mg tablet 30 mg PO DAILY #90 tabs 12/25/23 Unknown Rx Allergy/AdvReac Type Severity Reaction Status Date / Time Iodinated Contrast Media AdvReac Severe Hives Verified 01/08/24 13:59 (CONTRASTS) latex AdvReac Severe Rash Verified 01/08/24 13:59 Family History Brother CAD (coronary artery disease) CABG Myocardial infarction, Onset Age: 40 Grandmother Breast cancer paternal Aunt Breast cancer maternal Lung cancer paternal Sister Rheumatoid arthritis Mayes esophagus Colon polyps Monoclonal gammopathy Father Lung cancer Uncle Lung cancer paternal Mother Vascular dementia Alzheimers disease Other Anxiety and depression Cancer Hyperlipemia Hypertension Osteoporosis Surgical History History of colonoscopy History of rotator cuff surgery History of tooth extraction History of left mastectomy History of colonoscopy with polypectomy History of left breast biopsy (04/2020) History of left heart catheterization (05/16/06) History of hysterectomy History of appendectomy Social History Smoking Status: Former smoker quit date: 04/28/05 pack-years: 30 Tobacco: How many years used: 30 how long ago did patient quit smokin years quit status: quit date established alcohol intake: current substance use type: does not use what type of physical activity do you participate in: walking and weight training EXAM Physical Exam Const Vital Signs: 01/28/24 15:37 01/28/24 17:36 Temperature 97.9 F Temperature Source Oral Pulse Rate 77 70 Respiratory Rate 16 Blood Pressure 116/75 Blood Pressure Mean 88 Pulse Ox 99 95 Oxygen Delivery Method Room Air Room Air MDM MDM MDM Narrative Medical decision making narrative: HISTORY OF PRESENT ILLNESS: 68-year-old female presents abdominal pain, chest pain, nausea vomiting. Symptoms started today. Notes history abdominal surgery. No diarrhea or constipation. No fever. No urinary complaint. No vaginal discharge. REVIEW OF SYSTEMS: Pertinent positives: Abdominal pain, nausea, chest pain Pertinent negatives: Diarrhea, urinary complaints, PHYSICAL EXAM: Nursing triage notes reviewed, Vital signs reviewed Constitutional: please see mdm HENT: MMM Eyes: Pupils equal round and reactive to light, Extraocular muscles intact Neck: No stridor, no JVD, full neck ROM Lungs: Clear to auscultation, No wheezing or rales. No increased work of breathing, no conversational dyspnea, no accessory muscle use, no nasal flaring. No respiratory distress noted Heart: Regular rate and rhythm, No murmurs, No rubs and No gallops, 2+ distal pulses (radial, femoral, posterior tibial) in all extremities Abdomen: Myocard TTP, voluntary guarding rigidity, rebound no obvious peritoneal signs, no palpable pulsatile abdominal masses, no auscultated abdominal bruit : No CVAT Extremities: No edema Neuro: No focal neurological deficits, cranial nerves II through XII intact, 5/5 strength in all extremities. Intact sensation to light touch in all extremities, 2+ reflexes bilateral patella tendons. Normal gait. No ataxia. Skin: No rash or lesions noted MEDICAL DECISION MAKING: Chief Complaint: Abdominal pain External records reviewed: Reviewed prior imaging studies: No recent [facility] imaging of the abdomen, reviewed prior allergies noted allergy to the knee contrast Factors affecting care: Breast cancer, hypertension, lipidemia, ORIANA, history tobacco use, fibromyalgia, to arthritis Social determinants of health: none History obtained from others: none Consults: General Surgery (Dr. Motta) MDM Narrative: Patient was hemodynamically stable, afebrile, nontoxic-appearing. Exam with no upper quadrant TTP, positive Jimenez sign. Diffuse tenderness as well. I considered the following differential diagnosis: AAA, small bowel obstruction, abdominal perforation, appendicitis, pancreatitis, hepatobiliary pathology (acute cholecystitis), mesenteric ischemia, pathology (ie nephrolithiasis, pyelonephritis). I obtained a broad lab and imaging workup for elucidate etiology patient complaints I treated patient with IV fluids, Zofran and Toradol for symptomatic relief. ALL IMAGES (IF OBTAINED) HAVE BEEN PERSONALLY REVIEWED AND INTERPRETED BY MYSELF. CBC with marked leukocytosis suggestive of systemic inflammation, no anemia, no noted thrombocytopenia EKG with normal sinus rhythm, normal axis, normal intervals, no STEMI High-sensitivity troponin is negative, no evidence of myocardial ischemia BMP without significant electrolyte abnormalities, there is no anion gap to suggest endorgan hypoperfusion, there is no signs of metabolic acidosis with a normal bicarb, creatinine at baseline Lipase is wnl indicating no pancreatic inflammation. No signs of hyperbilirubinemia, no signs of hepatobiliary obstructive pathology on LFTs CT scan abdomen pelvis was read and reviewed myself shows large hydropic gallbladder with gallstones in the neck of the gallbladder concerning for acute cholecystitis. I am waiting for radiologist read. In the meantime I placed an order for a precut ultrasound to further assess patient's gallbladder. Radiologist read return with exact same interpretation as mine. Noted gallbladder distention, gallstones recommended ultrasound versus HIDA scan. Ultrasound showed evidence of acute cholecystitis. Discussed the case with the general surgeon on-call Dr. Motta agreed to meet the patient to his service for further evaluation and potential surgical intervention. The patient and/or family, caregivers express understanding. The patient and/or family, caregivers agrees with the plan. Shared decision making: I will have a discussion with the patient and or visitors regarding risk/benefits of further testing or admission. They will be made aware of of the risk/benefits inherent in this decision they will be given the opportunity to voice understanding. Total critical care time today provided was at least 0 minutes. This excludes separately billable procedures. Critical care time (if documented) is secondary to the patient having high probability of clinically significant/life threatening deterioration in the patient's condition which required my urgent intervention. Impression: 1. Abdominal pain 2. Nausea vomiting 3. Elevated lactate 4. Gallstones Dispo: Admit to [facility] This note was generated with [employer] dictation software. It may contain incorrect words, spelling, and punctuation that were not noted in review of the chart prior to signing. Lab Data Labs: Laboratory Results - last 24 hr 01/28/24 01/28/24 01/28/24 15:18 16:05 17:04 WBC 19.1 H RBC 4.10 L Hgb 13.2 Hct 39.8 MCV 97.1 MCH 32.2 H MCHC 33.2 RDW Std Deviation 47.6 H RDW Coeff of Lui 13.3 Plt Count 417 MPV 9.9 Immature Gran % (Auto) 2.200 H Neut % (Auto) 84.3 H Lymph % (Auto) 7.5 L Webster % (Auto) 5.0 Eos % (Auto) 0.6 Baso % (Auto) 0.4 Absolute Neuts (auto) 16.1 H Absolute Lymphs (auto) 1.44 Nucleated RBC % 0 Sodium 138 Potassium 3.8 Chloride 104 Carbon Dioxide 28.0 Anion Gap 6 BUN 24 H Creatinine 1.22 H Estim Creat Clear Calc 49.19 Est GFR (MDRD) Af Amer 56 L Est GFR (MDRD) Non-Af 46 L BUN/Creatinine Ratio 19.7 Glucose 133 H Lactic Acid 2.5 H* Calcium 9.5 Total Bilirubin 0.50 Direct Bilirubin 0.16 AST 10 L ALT 19 Alkaline Phosphatase 62 Troponin I High Sens < 3 L Total Protein 7.2 Albumin 3.7 Globulin 3.5 Lipase 28 Urine Color Yellow Urine Clarity Clear Urine pH 7.0 Ur Specific [place] 1.010 Urine Protein 15 H Urine Glucose (UA) Normal Urine Ketones 50 H Urine Occult Blood Negative Urine Nitrite Negative Urine Bilirubin Negative Urine Urobilinogen 1 H Ur Leukocyte Esterase 25 H Urine RBC Not Reportable Urine WBC 0-5 SEEN Ur Squamous Epith Cells 0-5 SEEN Urine Bacteria RARE Urine Mucus 1+ 01/28/24 18:14 WBC RBC Hgb Hct MCV MCH MCHC RDW Std Deviation RDW Coeff of Lui Plt Count MPV Immature Gran % (Auto) Neut % (Auto) Lymph % (Auto) Webster % (Auto) Eos % (Auto) Baso % (Auto) Absolute Neuts (auto) Absolute Lymphs (auto) Nucleated RBC % Sodium Potassium Chloride Carbon Dioxide Anion Gap BUN Creatinine Estim Creat Clear Calc Est GFR (MDRD) Af Amer Est GFR (MDRD) Non-Af BUN/Creatinine Ratio Glucose Lactic Acid Calcium Total Bilirubin Direct Bilirubin AST ALT Alkaline Phosphatase Troponin I High Sens 5 Total Protein Albumin Globulin Lipase Urine Color Urine Clarity Urine pH Ur Specific [place] Urine Protein Urine Glucose (UA) Urine Ketones Urine Occult Blood Urine Nitrite Urine Bilirubin Urine Urobilinogen Ur Leukocyte Esterase Urine RBC Urine WBC Ur Squamous Epith Cells Urine Bacteria Urine Mucus Radiography Diagnostic Testing: Clinical Impression(s) from Imaging Studies Abdomen/Pelvis CT 01/28/24 15:53 IMPRESSION: Distended gallbladder with multiple stones but no definitive evidence for acute cholecystitis. Ultrasound or HIDA scan would be helpful for further evaluation if clinically warranted Electronically Signed: Harpreet Gao MD at 16:42 EDT Reading Location ID and State: [place] / [place] Tel , Service support , Gallbladder Ultrasound 01/28/24 16:30 IMPRESSION: Mild biliary sludge and gallstones with sonographic evidence for acute cholecystitis. Dilated common bile duct without intraductal stone of indeterminate etiology. This may be further assessed with MRI/MRCP if indicated. Electronically Signed: Harpreet Gao MD at 18:10 EDT , Discharge Plan Disposition Disposition: Acute Care Hospital [facility] Discharge Date/Time: 01/28/24 20:02
--- NOTE | 2024-01-28 15:52 | EKG12_ITS ---
Test Reason : Blood Pressure : / mmHG Vent. Rate : 066 BPM Atrial Rate : 066 BPM P-R Int : 112 ms QRS Dur : 090 ms QT Int : 428 ms P-R-T Axes : 073 066 070 degrees QTc Int : 448 ms Normal sinus rhythm Nonspecific ST abnormality Abnormal ECG Confirmed by HUMBERTO DAVIS, SARAH ([id number]), editor book SHERRIE DOSHI ([id number]) on 01/30/2024 6:28:06 AM Referred By: Confirmed By:SARAH PAUL MD
--- NOTE | 2024-01-28 15:53 | CT_ITS ---
STUDY: CT ABDOMEN AND PELVIS WITHOUT CONTRAST REASON FOR EXAM: Female, 68 years old. epigastric abdominal pain RADIATION DOSAGE (If Supplied By Facility): CTDIvol = ( 13.98 ) mGy, DLP = ( 684.49 ) mGycm TECHNIQUE: Transaxial images were obtained from the dome of the diaphragm to the symphysis pubis without oral contrast, and without intravenous contrast. Sagittal and coronal images were reconstructed. Individualized dose optimization techniques were used for this CT. COMPARISON: None. FINDINGS: The visualized lung bases are unremarkable. Heart size is normal. There is coronary artery calcification. Liver is normal in size. There is a tiny cyst in the right lobe. Bile ducts are not dilated. Gallbladder is diffusely distended and contains multiple rim calcified stones without evidence for pericholecystic edema.. Normal spleen. Normal pancreas. Normal bilateral adrenal glands. Normal right kidney. Normal left kidney. Normal visualized stomach. Normal small intestine. Diverticular changes of the sigmoid and descending colon without evidence for acute diverticulitis. Appendix not visualized consistent with appendectomy. Atherosclerotic change of the aorta without evidence for aneurysm. Normal inferior vena cava. Normal retroperitoneum. Normal urinary bladder. Uterus not visualized status post hysterectomy Normal abdominal wall. Normal osseous structures. CT/Abdomen/Pelvis without Cont IMPRESSION: Distended gallbladder with multiple stones but no definitive evidence for acute cholecystitis. Ultrasound or HIDA scan would be helpful for further evaluation if clinically warranted Electronically Signed: Harpreet Gao MD at 16:42 EDT ,
--- NOTE | 2024-01-28 15:59 | CPS ---
Attempted to perform EKG on patient as ordered by MD. Patient unable to sit still and complaining of extreme nauseous. Requested RT to return after she is medicated.
[2024-01-28] MEDS: 0.9% Normal Saline (1000mL) 1,000 ML 999 ML IV (16:02)
[2024-01-28] MEDS: Ondansetron 4 MG/2 ML Vial IV (16:03)
[2024-01-28] MEDS: Morphine 4 MG/ML Syringe IV (16:03)
--- NOTE | 2024-01-28 16:03 | ED.RN ---
Patient refused EKG by RT
[2024-01-28 16:06] LABS: Absolute Lymphocyte Count 1.44 X10^3/uL (0.83-4.51); Absolute Neutrophil Count 16.1 X10^3/uL (2.0-7.7); Basophil# 0.08 X10^3/uL; Basophil% 0.4 % (0-1); Eosinophil# 0.12 X10^3/uL; Eosinophils% 0.6 % (0-5); Hematocrit 39.8 % (37-47); Hemoglobin 13.2 g/dL (12.0-15.0); Lymphocyte # 1.44 X10^3/ul (0.83-4.51); Lymphocyte % 7.5 % (19-41); Mean Corp Hgb Conc 33.2 g/dL (32-36); Mean Corpuscular Hgb 32.2 pg (27.0-32.0); Mean Corpuscular Volume 97.1 fL (81-99); Mean Platelet Vol. 9.9 fl (6.2-12.0); Monocyte# 0.96 X10^3/uL; NRBC Flagged by Analyzer 0 % (0-5); Neutrophil # 16.11 X10^3/uL (2.7-7.7); Neutrophil % 84.3 % (47-70); Platelet Count 417 K/mm3 (150-450); RBC Distribution Width CV 13.3 % (11.6-14.6); RBC Distribution Width SD 47.6 fl (35.1-43.9); White Blood Count 19.1 K/mm3 (4.4-11.0)
[2024-01-28 16:29] LABS: AST(SGOT) 10 U/L (15-37); Alanine Aminotransfer ALT/SGPT 19 U/L (13-56); Albumin, Serum 3.7 g/dL (3.2-5.0); Alkaline Phosphatase 62 U/L (45-117); Anion Gap 6 (5-15); BUN 24 mg/dL (7-18); BUN/Creat Ratio 19.7 RATIO (10-20); Bilirubin, Direct 0.16 mg/dL (0.00-0.30); Calcium,Total 9.5 mg/dL (8.5-10.1); Chloride 104 mmol/L (98-107); Creatinine, Serum 1.22 mg/dL (0.55-1.02); EST Glomerular Filtration Rate 46 mL/min (>60); Est Glom Filt Rate - Afr Amer 56 mL/min (>60); Estimated Creatinine Clearance 49.19 ml/min; Globulin 3.5 g/dL (2.2-4.2); Glucose 133 mg/dL (74-106); Lipase 28 U/L (13-75); Potassium 3.8 mmol/L (3.5-5.1); Protein, Total 7.2 g/dL (6.4-8.2); Sodium Level 138 mmol/L (136-145); Troponin-I HS (w/2H Reflex) < 3 pg/mL (3.0-54.0)
--- NOTE | 2024-01-28 16:30 | US_ITS ---
STUDY: ABDOMINAL ULTRASOUND - RIGHT UPPER QUADRANT REASON FOR VISIT: Female, 68 years old RUQ TTP r/o acute cholecystitis TECHNIQUE: Ultrasound evaluation of the right upper quadrant was performed with real-time and static bradley-scale imaging. TECHNICAL QUALITY: Adequate. COMPARISON: None. FINDINGS: Liver: The liver measures 15.5 cm. There is normal echogenicity of the liver. The bile ducts are within normal limits. There is hepatic color flow. The direction of portal flow is hepatopetal. There is no demonstrated mass lesion. Gallbladder: Normal distended gallbladder. The gallbladder wall measures 2 mm. There is a positive sonographic Jimenez''s sign. There is no pericholecystic fluid. Multiple gallstones Common Bile Duct (C.B.D.): The common bile duct measures 10 mm. Pancreas: Normal size of the head, body and tail of the pancreas. There is normal echogenicity of the pancreas. There is no demonstrated pancreatic mass or cyst. Right Kidney: Normal size of the right kidney. The right kidney measures 9.4 x 4.7 x 5.7 cm. Normal renal cortex. The right cortex measures 1.5 cm. There is no demonstrated renal mass or cyst. There is no right hydronephrosis. US/Gallbladder IMPRESSION: Mild biliary sludge and gallstones with sonographic evidence for acute cholecystitis. Dilated common bile duct without intraductal stone of indeterminate etiology. This may be further assessed with MRI/MRCP if indicated. Electronically Signed: Harpreet Gao MD at 18:10 EDT ,
[2024-01-28] MEDS: HYDROmorphone 0.5 MG/0.5 ML SYRINGE IV ×2 (16:33→18:37)
[2024-01-28] MEDS: Metoclopramide 10 MG/2 ML Vial 5 MG IV (16:34)
[2024-01-28 16:47] LABS: Lactic Acid 2.5 mmol/L (0.4-1.9)
[2024-01-28 17:11] LABS: Color, Urine Yellow (Yellow); Glucose, Dipstick Normal (Normal); Ketone-Dipstick 50 mg/dl (Negative); Leukocyte Esterase-Dipstick 25 /ul (Negative); Nitrite-Dipstick Negative (Negative); Occult Blood-Urine Negative /ul (Negative); Protein-Dipstick 15 mg/dl (Negative); Urine Bilirubin Dipstick Negative (Negative); Urine Clarity Clear (Clear); Urine Urobilinogen 1 mg/dl (Normal)
[2024-01-28 17:23] LABS: Mucous, Urine 1+ /hpf (<or=2+); Squamous Epithelial Cells - UA 0-5 SEEN /hpf (5-10); White Blood Cells 0-5 SEEN /hpf (0-5)
[2024-01-28 17:25] LABS: Bacteria RARE /hpf (None Seen)
[2024-01-28 17:36] VITALS: PULSE 70; O2SAT 95
[2024-01-28 18:00] LABS: Reflex Troponin-HS? (from REC) Y
--- OUTSIDE RECORDS SUMMARY | 2024-01-28 18:14 | XMS RPT_ITS | CCD ---
Author Organization [facility] Informat ion Partnership [facility] Care Team Providers Care Vp Software Name Role Phone Asif Drew Primary Care Provider [phone] Provider, External Unavailable [phone] Isi Victoria Unavailable Unavailable Sergo Yost Unavailable Lucy DAVIS, Shari Sahni Primary Care Provider Results Test Name Value Interpretation Reference Range Facil ity CNPO[place]avia 09-12-2023 CNPN Telephone (CATHMN) KIEL CORTEZ ([id number]) 1955 F Date Time Provider Department 09/12/23 ROSIO LAGUNAS During your visit today, we recorded the following information about you: Luis Alberto Victoria 09/12/2023 12:37 PM Signed Pt calls into Dr. Lagunas's office -- No records/encounters associated to pt in chart -- Pt states the call was an accident and call ended --- Luis Alberto Victoria Senior Production Manager II Allergies As of Date: 09/12/2023 (Not on File) Date Reviewed: Never Reviewed Reason for Visit: error [307] Problem List As Of Date: 09/12/2023 (None) Encounter Status:Closed by LUIS ALBERTO VICTORIA on 09/12/23 Normal [facility] Encounters Encounter Date Encounter Type Care Provider Facility Start: 09-12-2023 Telephone encounter Rosio Lagunas MD Work Phone: Cardiology Comment on above: error Start: 06-19-2020 End: 06-19-2020 Subsequent hospital visit by physician Sergo Yost Work Phone: Lab Non-Patient Plan of Treatment Date Care Activity Detail Author Start: 12-28-2023 Influenza vaccination Influenza Vaccine (Season Ended) [facility] Start: 04-28-2023 Advance Directive Discussion Advance Directive Discussion [facility] Start: 04-28-2023 Behavioral Health Screening Behavioral Health Screening [facility] Start: 12-27-2022 Covid-19 Vaccine ( season) Covid-19 Vaccine ( season) [facility] Start: 09-29-2019 Pneumococcal Vaccine: 65+ (1 of 1 - PCV) Pneumococcal Vaccine: 65+ (1 of 1 - PCV) [facility] Start: 09-29-2019 Screening for osteoporosis Bone Density Screening [facility] Start: 2014 RSV Vaccine (1 - 1-dose 60+ series) RSV Vaccine (1 - 1-dose 60+ series) [facility] Start: 2004 Shingrix Vaccine (1 of 2) Shingrix Vaccine (1 of 2) [facility] Start: 09-29-1999 Diabetes Screening Diabetes Screening [facility] Start: 09-29-1999 Lipid panel Lipid Screening [facility] Start: 09-29-1999 Screening for malignant neoplasm of colon [facility] Start: 1994 Screening for malignant neoplasm of breast Mammogram Screening [facility] Start: 1973 Hepatitis B (1 of 3 - Risk 3-dose series) Hepatitis B (1 of 3 - Risk 3-dose series) [facility] Start: 1973 Urine microalbumin profile DTaP,Tdap,Td Vaccine (1 - Tdap) [facility] Start: 1972 Hepatitis C screening Hepatitis C Screening [facility] Start: 1970 COVID-19 (1) COVID-19 (1) [facility] Start: 1970 MenB (1 of 2 - MenB 2-Dose Series) MenB (1 of 2 - MenB 2-Dose Series) [facility] Start: 06-03-1962 Tetanus Diphtheria and Pertussis Vaccines (1 - Tdap) Tetanus Diphtheria and Pertussis Vaccines (1 - Tdap) [facility] Start: 09-29-1955 Hepatitis A (1 of 2 - Risk 2-dose series) Hepatitis A (1 of 2 - Risk 2-dose series) [facility] Start: 09-29-1955 MMR (1 of 1 - Standard series) MMR (1 of 1 - Standard series) [facility] Start: 09-29-1955 Varicella (1 of 2 - 2-dose childhood series) Varicella (1 of 2 - 2-dose childhood series) [facility] Immunizations Immunization Date Immunization Notes Care Provider Fa cility 03-10-2019 influenza, injectabl e, quadrivalent, contains preservative Rosio Lagunas MD Work Phone: [facility] 03-10-2019 influenza virus vacc ine, unspecified formulation Rosio Lagunas MD Work Phone: [facility] 03-11-2018 influenza, injectabl e, quadrivalent, contains preservative Rosio Lagunas MD Work Phone: [facility] Payers Date Payer Category Payer Medicare MEDICARE MEDICAR E PART A AND B [id number] 2019-Present [address] [place] [address] [id number] 2015 Unknown ELIO BALLARD BC BS PPO [id number] 2015-Present [address] [place] [address] [id number] 2015 Unknown ELIO BLUE CARD TRADITIONAL OOS [id number] 2015-Present [phone] [address] [place] [address] Indemnity [id number] Social History Date Type Detail Facility Start: 06-12-2020 Tobacco smoking status NHIS Former smoker [facility] Start: 06-12-2020 Tobacco use and exposure Never used [place] [facility] Start: 06-09-2020 Tobacco Comment over 20 years ago [facility] Start: 1955 Sex Assigned At Not on file A cory [facility] Tobacco smoking status NHIS Tobacco smoking consumption unknown [facility] Gender identity Not on file [facility] inic Goals Date Patient Goal Desired Activity /State Personal health goal Telephone encounter Note 09-12-2023 Telephone Encounter - Luis Alberto Victoria - 09/12/2023 12:36 PM EDT Note Date & Type Note Facility 09-12-2023 Telephone encount er Note Pt calls into Dr. Lagunas's office -- No records/encounters associated to pt in chart -- Pt states the call was an accident and call ended --- Luis Alberto Victoria Senior Production Manager II [facility] Note 09-12-2023 Telephone Encounter - Luis Alberto Victoria - 09/12/2023 12:36 PM EDT Note Date & Type Note Facility 09-12-2023 Miscellaneous Notes Formattin g of this note might be different from the original. Pt calls into Dr. 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 Power of Polls Or Surveys Interviewer Summary Purpose Family History No Family History Records Found Additional Source Comments Source Comments (unrecognize d section and content) In the event this informatio n is protected by the Federal Confidentiality of Alcohol and Drug Abuse Patient Records regulations: The Federal rules restrict any use of the information to criminally investigate or prosecute any alcohol or drug abuse patient.[facility] Reason for Visit (unrecogniz ed section and content) Reason Comments error Care Teams (unrecognized sec tion and content) Vp Software Relationship Specialty Start Date End Date Shari Ayala MD [address] [place] [address] PCP - General 08/13/00 INFORMATION SOURCE (unrecogn ized section and content) DATE CREATED AUTHOR 09/15/2023 [facility] FOR RECORDS PERTAINING TO PATIENTS WHO ARE [...] BE BASED ON THE PRIMARY CLINICAL RECORDS. [facility] [employer] [facility]. provides no warranty or guarantee of the accuracy or completeness of information in this document.
[2024-01-28 18:49] LABS: Troponin-I HS 5 pg/mL (3.0-54.0)
--- NOTE | 2024-01-28 19:45 | HP.PCM_ITS ---
HPI - General General Date of Admission: 01/28/24 Date of Service: 01/28/24 Chief Complaint: Acute onset abdominal pain with associated nausea and vomiting HPI Narrative KIEL ENGLISH, is a 68 F who presents to [facility] via squad due to complaints of progressive, acute onset right upper quadrant abdominal discomfort/chest discomfort and associated intractable nausea and vomiting. She shares that she went out to dinner with her in [place] last evening and consumed some hamburger and fries. She notes that she does not normally eat red meat and upon developing a mild version of her symptoms suspected she may have been suffering food poisoning. However, the symptoms intensified overnight and by this morning became severe in intensity. She denies any previous experience of the symptoms. Patient's ED workup was notable for noncontrasted CT imaging of the abdomen pelvis that showed a distended gallbladder with number of gallstones but no clear additional secondary signs for acute cholecystitis. Right upper quadrant ultrasound was recommended by radiology and was ultimately completed by emergency medicine. This study showed several gallstones, as well as a dilated common bile duct at 10 mm but a 2 mm gallbladder wall and no evidence of pericholecystic fluid. The certified bench jeweler technician also noted a positive sonographic Jimenez sign. Patient's laboratories showed evidence of significant leukocytosis of 19,000 but her LFTs were within normal limits. Troponin was negative. Lactic acid was mildly elevated at 2.5. Creatinine is largely at baseline with a history of CKD 3. Patient was asked for further detail, specifically, about her reported history with colon cancer . She shares this was cared for at the [facility] in the 1980s. She reports that everything was done transrectally and that she underwent follow-up chemoradiation but has not had any issues since. She notes a number of colonoscopies that followed and have all been reassuring to this effect.Lastly she confirms that her only abdominal surgical history consists of a hysterectomy and an open appendectomy as a youth. [facility] Medical History Insomnia History of breast cancer Dense breast tissue Screening for breast cancer Palpitation Breast pain, right Gastritis Ear ache Dermatitis Diarrhea Lumbar radiculopathy Left shoulder pain Microscopic colitis Colitis Diverticulitis Dry skin dermatitis Obstructive sleep apnea Chronic diarrhea Sleep apnea Hypersomnolence Dense breast tissue on mammogram Screening for thyroid disorder History of tobacco use Encounter for screening for malignant neoplasm of lung BCC (basal cell carcinoma), back Migraine Pain, eye, left ER+ (estrogen receptor positive status) Seasonal allergies Fibromyalgia Personal history of colon cancer Osteoporosis Cancer of left female breast Colon cancer Colon polyps Obesity Hyperlipidemia Asthma Anemia Vitamin D deficiency Herpes labialis Rheumatoid arthritis CKD (chronic kidney disease) History of pulmonary embolus (PE) Essential hypertension Chronic pain Anxiety Home Medications ?Medication ?Instructions ?Recorded ?Last Taken ?Type denosumab 60 mg/mL subcutaneous 60 mg subcut [id number] #1 mL 06/05/21 Unknown Rx syringe (Prolia) valacyclovir 1 gram tablet 1,000 mg PO DAILY PRN Outbreak 11/15/21 Unknown History (Valtrex) prednisone 10 mg tablet mg PO PRN poly flair 07/02/23 Unknown History olmesartan 20 See Rx Instructions .Route 07/12/23 Unknown Rx mg-hydrochlorothiazide 12.5 mg .COMPLEX #90 tabs tablet anastrozole 1 mg tablet 1 mg PO DAILY #90 tabs 09/18/23 Unknown Rx epinephrine 0.3 mg/0.3 mL 0.3 mg (0.3 mL) IM Q5-15M PRN 09/18/23 Unknown Rx injection, auto-injector (EpiPen anaphylaxis #4 ea 2-Federico) hydroxychloroquine 200 mg tablet 200 mg PO BID 11/24/23 Unknown History (Plaquenil) trazodone 100 mg tablet 100 mg PO QHS Sleep 11/24/23 Unknown History albuterol sulfate 90 mcg/actuation 2 puff inhalation Q6H PRN Asthma 12/25/23 Unknown Rx aerosol inhaler #8.5 grams paroxetine HCl 30 mg tablet 30 mg PO DAILY #90 tabs 12/25/23 Unknown Rx Allergy/AdvReac Type Severity Reaction Status Date / Time Iodinated Contrast Media AdvReac Severe Hives Verified 01/08/24 13:59 (CONTRASTS) latex AdvReac Severe Rash Verified 01/08/24 13:59 Family History Brother CAD (coronary artery disease) CABG Myocardial infarction, Onset Age: 40 Grandmother Breast cancer paternal Aunt Breast cancer maternal Lung cancer paternal Sister Rheumatoid arthritis Mayes esophagus Colon polyps Monoclonal gammopathy Father Lung cancer Uncle Lung cancer paternal Mother Vascular dementia Alzheimers disease Other Anxiety and depression Cancer Hyperlipemia Hypertension Osteoporosis Surgical History History of colonoscopy History of rotator cuff surgery History of tooth extraction History of left mastectomy History of colonoscopy with polypectomy History of left breast biopsy (04/2020) History of left heart catheterization (05/16/06) History of hysterectomy History of appendectomy Social History Smoking Status: Former smoker quit date: 04/28/05 pack-years: 30 Tobacco: How many years used: 30 how long ago did patient quit smokin years quit status: quit date established alcohol intake: current substance use type: does not use what type of physical activity do you participate in: walking and weight training Vital Signs Vital Signs Vital Signs: 01/28/24 15:37 01/28/24 17:36 Temperature 97.9 F Temperature Source Oral Pulse Rate 77 70 Respiratory Rate 16 Blood Pressure 116/75 Blood Pressure Mean 88 Pulse Ox 99 95 Oxygen Delivery Method Room Air Room Air Weight Weight: 206 lb 2.115 oz Body Mass Index (BMI) 34.2 Physical Exam Const alert, oriented x3 and well nourished General Appearance: cooperative Resp normal respiratory effort GI GI Narrative: Overweight, no visible scars, no signs of hernia, soft, exquisitely tender to palpation right upper quadrant with positive Jimenez sign. Results Lab / Micro Data 01/28/24 15:18 01/28/24 15:18 Labs: Laboratory Results - last 24 hr 01/28/24 15:18: WBC 19.1 H, RBC 4.10 L, Hgb 13.2, Hct 39.8, MCV 97.1, MCH 32.2 H , MCHC 33.2, RDW Std Deviation 47.6 H, RDW Coeff of Lui 13.3, Plt Count 417, MPV 9.9, Immature Gran % (Auto) 2.200 H, Neut % (Auto) 84.3 H, Lymph % (Auto) 7.5 L, [place] % (Auto) 5.0, Eos % (Auto) 0.6, Baso % (Auto) 0.4, Absolute Neuts (auto) 16.1 H, Absolute Lymphs (auto) 1.44, Nucleated RBC % 0, Sodium 138, Potassium 3.8, Chloride 104, Carbon Dioxide 28.0, Anion Gap 6, BUN 24 H, Creatinine 1.22 H , Estim Creat Clear Calc 49.19, Est GFR (MDRD) Af Amer 56 L, Est GFR (MDRD) Non- Af 46 L, BUN/Creatinine Ratio 19.7, Glucose 133 H, Calcium 9.5, Total Bilirubin 0.50, Direct Bilirubin 0.16, AST 10 L, ALT 19, Alkaline Phosphatase 62, Troponin I High Sens < 3 L, Total Protein 7.2, Albumin 3.7, Globulin 3.5, Lipase 28 01/28/24 16:05: Lactic Acid 2.5 H* 01/28/24 17:04: Urine Color Yellow, Urine Clarity Clear, Urine pH 7.0, Ur Specific Hartshorn 1.010, Urine Protein 15 H, Urine Glucose (UA) Normal, Urine Ketones 50 H, Urine Occult Blood Negative, Urine Nitrite Negative, Urine Bilirubin Negative, Urine Urobilinogen 1 H, Ur Leukocyte Esterase 25 H, Urine RBC Not Reportable, Urine WBC 0-5 SEEN, Ur Squamous Epith Cells 0-5 SEEN, Urine Bacteria RARE, Urine Mucus 1+ 01/28/24 18:14: Troponin I High Sens 5 Imaging Radiology Impression Abdomen/Pelvis CT 01/28/24 15:53 IMPRESSION: Distended gallbladder with multiple stones but no definitive evidence for acute cholecystitis. Ultrasound or HIDA scan would be helpful for further evaluation if clinically warranted Electronically Signed: Harpreet Gao MD at 16:42 EDT Reading Location ID and State: [facility] / [place] Tel [phone], Service support , Gallbladder Ultrasound 01/28/24 16:30 IMPRESSION: Mild biliary sludge and gallstones with sonographic evidence for acute cholecystitis. Dilated common bile duct without intraductal stone of indeterminate etiology. This may be further assessed with MRI/MRCP if indicated. Electronically Signed: Harpreet Gao MD at 18:10 EDT , Assessment & Plan Assessment/Plan (1) Acute cholecystitis due to biliary calculus: PLAN: Patient is a 68-year-old female, previously reasonably healthy, coming from home via squad for acute onset right upper quadrant pain and workup largely consistent with acute cholecystitis. The acuity of her presentation, I believe, is reason some of her presentation does not fit as consistently as some. She has within the first 24 hours of her symptom onset and denies any antecedent similar symptoms. Newly her imaging appears to suspect she had cholelithiasis that became problematic once the stones entered the infundibular portion of the gallbladder and ultimately the gallbladder neck. This would explain why her ultrasound really does not show secondary signs of cholecystitis but that her exam is remarkable for Jimenez sign which is sensitive for this diagnosis. The dilatation of patient's common bile duct, however, is more difficult to explain as she, notably, has no transaminitis or hyperbilirubinemia. With the diagnosis of cholecystitis I have recommended proceeding for laparoscopic cholecystectomy and, additionally, recommended intraoperative cholangiography to investigate the dilated common bile duct. I described this procedure in detail?including the attendant risks of bleeding, infection, and injury to the bile ducts. Patient and her asked if alternatives were present and I, frankly, stated that I did not recommend them but did describe briefly use of cholecystostomy drainage. Upon hearing this information patient and her expressed agreement with the recommendation. She will be admitted inpatient to the general medical surgical floor with ongoing IV antibiotic therapy and we will plan for surgery tomorrow. Robert Motta MD General Surgery Endocrine Surgery Pager: [facility] [address] [place] [address], [address] [place] [address] Office: [phone] Charges/Coding Visit Charges Inpatient E&M: 23717 Init Hosp L2
--- OUTSIDE RECORDS SUMMARY | 2024-01-28 19:55 | XMS RPT_ITS | CCD ---
Author Organization [facility] Care Team Providers Care [facility] [employer] Name Role Phone Asif Drew Primary Care Provider Provider, External Unavailable Isi Victoria Unavailable Unavailable Sergo Yost Unavailable Lucy DAVIS, Shari Sahni Primary Care Provider Results Test Name Value Interpretation Reference Range Facil ity CNPOctavia 09-12-2023 CNPN Telephone (CATHMN) KIEL CORTEZ ([id number]) 1955 F Date Time Provider Department 09/12/23 ROSIO LAGUNAS During your visit today, we recorded the following information about you: Luis Alberto Victoria 09/12/2023 12:37 PM Signed Pt calls into Dr. Lagunas's office -- No records/encounters associated to pt in chart -- Pt states the call was an accident and call ended --- Luis Alberto Victoria Filenet Admin II Allergies As of Date: 09/12/2023 (Not on File) Date Reviewed: Never Reviewed Reason for Visit: error [307] Problem List As Of Date: 09/12/2023 (None) Encounter Status:Closed by LUIS ALBERTO VICTORIA on 09/12/23 Normal [facility] Encounters Encounter Date Encounter Type Care Provider Facility Start: 09-12-2023 Telephone encounter Rosio Lagunas MD Work Phone: Cardiology Comment on above: error Start: 06-19-2020 End: 06-19-2020 Subsequent hospital visit by physician Sergo Yost Work Phone: Lab Non-Patient Plan of Treatment Date Care Activity Detail Author Start: 12-28-2023 Influenza vaccination Influenza Vaccine (Season Ended) [facility] Start: 04-28-2023 Advance Directive Discussion Advance Directive Discussion [facility] Start: 04-28-2023 Behavioral Health Screening Behavioral Health Screening [facility] Start: 12-27-2022 Covid-19 Vaccine ( season) Covid-19 Vaccine ( season) [facility] Start: 09-29-2019 Pneumococcal Vaccine: 65+ (1 of 1 - PCV) Pneumococcal Vaccine: 65+ (1 of 1 - PCV) [facility] Start: 09-29-2019 Screening for osteoporosis Bone Density Screening [facility] Start: 2014 RSV Vaccine (1 - 1-dose 60+ series) RSV Vaccine (1 - 1-dose 60+ series) [facility] Start: 2004 Shingrix Vaccine (1 of 2) Shingrix Vaccine (1 of 2) [facility] Start: 09-29-1999 Diabetes Screening Diabetes Screening [facility] Start: 09-29-1999 Lipid panel Lipid Screening [facility] Start: 09-29-1999 Screening for malignant neoplasm of colon [facility] Start: 1994 Screening for malignant neoplasm of breast Mammogram Screening [facility] Start: 1973 Hepatitis B (1 of 3 - Risk 3-dose series) Hepatitis B (1 of 3 - Risk 3-dose series) [facility] Start: 1973 Urine microalbumin profile DTaP,Tdap,Td Vaccine (1 - Tdap) [facility] Start: 1972 Hepatitis C screening Hepatitis C Screening [facility] Start: 1970 COVID-19 (1) COVID-19 (1) [facility] Start: 1970 MenB (1 of 2 - MenB 2-Dose Series) MenB (1 of 2 - MenB 2-Dose Series) [facility] Start: 06-03-1962 Tetanus Diphtheria and Pertussis Vaccines (1 - Tdap) Tetanus Diphtheria and Pertussis Vaccines (1 - Tdap) [facility] Start: 09-29-1955 Hepatitis A (1 of 2 - Risk 2-dose series) Hepatitis A (1 of 2 - Risk 2-dose series) [facility] Start: 09-29-1955 MMR (1 of 1 - Standard series) MMR (1 of 1 - Standard series) [facility] Start: 09-29-1955 Varicella (1 of 2 - 2-dose childhood series) Varicella (1 of 2 - 2-dose childhood series) [facility] Immunizations Immunization Date Immunization Notes Care Provider Fa cility 03-10-2019 influenza, injectabl e, quadrivalent, contains preservative Rosio Lagunas MD Work Phone: [facility] 03-10-2019 influenza virus vacc ine, unspecified formulation Rosio Lagunas MD Work Phone: [facility] 03-11-2018 influenza, injectabl e, quadrivalent, contains preservative Rosio Lagunas MD Work Phone: [facility] Payers Date Payer Category Payer Medicare MEDICARE MEDICAR E PART A AND B [id number] 2019-Present [address] [place] [address] [id number] 2015 Unknown ELIO BALLARD BC BS PPO [id number] 2015-Present [address] [place] [address] [id number] 2015 Unknown ELIO BLUE CARD TRADITIONAL OOS [id number] 2015-Present [phone] [address] [place] [address] Indemnity [id number] Social History Date Type Detail Facility Start: 06-12-2020 Tobacco smoking status NHIS Former smoker [facility] Start: 06-12-2020 Tobacco use and exposure Never used [facility] Start: 06-09-2020 Tobacco Comment over 20 years ago [facility] Start: 1955 Sex Assigned At Not on file [facility] Tobacco smoking status NHIS Tobacco smoking consumption unknown [facility] Gender identity Not on file [facility] inic Goals Date Patient Goal [...] and call ended --- Luis Alberto Victoria Filenet Admin II [facility] Note 09-12-2023 Telephone Encounter - Luis Alberto Victoria - 09/12/2023 12:36 PM EDT Note Date & Type Note Facility 09-12-2023 Miscellaneous Notes Formattin g of this note might be different from the original. Pt calls into Dr. 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 Power of Railway Engineer Summary Purpose Family History No Family History Records Found Additional Source Comments Source Comments (unrecognize d section and content) In the event this informatio n is protected by the Federal Confidentiality of Alcohol and Drug Abuse Patient Records regulations: The Federal rules restrict any use of the information to criminally investigate or prosecute any alcohol or drug abuse patient.[facility] Reason for Visit (unrecogniz ed section and content) Reason Comments error Care Teams (unrecognized sec tion and content) [facility] [employer] Relationship Specialty Start Date End Date Shari Ayala MD [address] [place] [address] PCP - General 08/13/00 INFORMATION SOURCE (unrecogn ized section and content) DATE CREATED AUTHOR 09/15/2023 [facility] FOR RECORDS PERTAINING TO PATIENTS WHO [...] BE BASED ON THE PRIMARY CLINICAL RECORDS. [facility] [employer] [facility]. provides no warranty or guarantee of the accuracy or completeness of information in this document.
[2024-01-28 20:10] LABS: Reflex Lactate? Y
[2024-01-28 20:19] VITALS: BMI 32.4
[2024-01-28 20:27] VITALS: BP 151/83; PULSE 78; RESP 17; TEMP 36.6; O2SAT 98
[2024-01-28] MEDS: 0.9% Normal Saline (250mL Bag) 250 ML 15 ML IV (20:35)
[2024-01-28] MEDS: 0.9% Normal Saline (1000mL) 1,000 ML 125 ML IV (20:35)
[2024-01-28 21:33] LABS: Lactic Acid 1.3 mmol/L (0.4-1.9)
[2024-01-28 21:40] VITALS: O2SAT 98
--- NOTE | 2024-01-28 21:40 | CPS ---
Pt refused CPAP for the night but agreed to wearing oxygen to use during sleep.
[2024-01-28] MEDS: Acetaminophen 500 MG Tablet PO (22:04)
[2024-01-28] MEDS: traZODone 100 MG Tablet PO (22:05)
[2024-01-28] MEDS: Piperacil/Tazobactam 3.375 GM in 0.9% Normal Saline (50mL MB+) 50 ML IV (22:05)
[2024-01-29] VITALS (19 sets, daily range): BP systolic 106–157; BP diastolic 50–86; PULSE 81–97; RESP 12–18; TEMP 36.6–38.1; O2SAT 59–100; BMI 32.4
[2024-01-29] MEDS: 0.9% Saline Lock 10 ML Syringe IV ×4 (00:25→13:59)
[2024-01-29] MEDS: HYDROmorphone 0.5 MG/0.5 ML SYRINGE IV ×3 (00:25→13:59)
[2024-01-29] MEDS: 0.9% Normal Saline (1000mL) 1,000 ML 125 ML IV ×2 (04:39→12:57)
[2024-01-29] MEDS: Ondansetron 4 MG/2 ML Vial IV ×2 (04:48→14:01)
[2024-01-29] MEDS: Acetaminophen 500 MG Tablet PO ×2 (04:48→12:57)
[2024-01-29] MEDS: Piperacil/Tazobactam 3.375 GM in 0.9% Normal Saline (50mL MB+) 50 ML IV ×3 (06:19→23:06)
[2024-01-29 06:53] LABS: Absolute Lymphocyte Count 0.93 X10^3/uL (0.83-4.51); Absolute Neutrophil Count 14.5 X10^3/uL (2.0-7.7); Basophil# 0.08 X10^3/uL; Basophil% 0.5 % (0-1); Eosinophil# 0.08 X10^3/uL; Eosinophils% 0.5 % (0-5); Hemoglobin 11.2 g/dL (12.0-15.0); Lymphocyte # 0.93 X10^3/ul (0.83-4.51); Lymphocyte % 5.4 % (19-41); Mean Corpuscular Hgb 32.2 pg (27.0-32.0); Mean Corpuscular Volume 100.6 fL (81-99); Mean Platelet Vol. 9.4 fl (6.2-12.0); Monocyte# 1.41 X10^3/uL; Monocyte% 8.2 % (0-10); NRBC Flagged by Analyzer 0 % (0-5); Neutrophil # 14.49 X10^3/uL (2.7-7.7); Platelet Count 296 K/mm3 (150-450); RBC Distribution Width CV 13.4 % (11.6-14.6); RBC Distribution Width SD 49.2 fl (35.1-43.9); Red Blood Count 3.48 M/mm3 (4.2-5.4); White Blood Count 17.2 K/mm3 (4.4-11.0)
[2024-01-29 07:27] LABS: AST(SGOT) 98 U/L (15-37); Alanine Aminotransfer ALT/SGPT 137 U/L (13-56); Albumin, Serum 2.9 g/dL (3.2-5.0); Alkaline Phosphatase 66 U/L (45-117); Anion Gap 5 (5-15); BUN 20 mg/dL (7-18); BUN/Creat Ratio 18.9 RATIO (10-20); Calcium,Total 8.1 mg/dL (8.5-10.1); Chloride 109 mmol/L (98-107); Creatinine, Serum 1.06 mg/dL (0.55-1.02); EST Glomerular Filtration Rate 55 mL/min (>60); Est Glom Filt Rate - Afr Amer 66 mL/min (>60); Globulin 2.9 g/dL (2.2-4.2); Glucose 121 mg/dL (74-106); Potassium 3.5 mmol/L (3.5-5.1); Protein, Total 5.8 g/dL (6.4-8.2); Sodium Level 138 mmol/L (136-145)
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
--- NOTE | 2024-01-29 08:21 | PN.SURG_ITS ---
Subjective Subjective Patient is evaluated resting comfortably in bed. She notes the right upper quadrant pain is manageable at rest. She denies any nausea, vomiting, fever. Objective Data Objective Data Vital Signs: Vital Signs Temp Pulse Resp BP Pulse Ox O2 Del Method O2 Flow Rate 98.4 F 87 16 113/50 L 94 Room Air 2 01/29/24 04:34 01/29/24 04:34 01/29/24 04:34 01/29/24 04:34 01/29/24 04:34 01/29/24 04:34 01/28/24 21:40 Oxygen Flow Rate (L/min) 2 Oxygen Delivery Method Room Air Weight: 194 lb 14.218 oz Body Mass Index (BMI) 32.4 Intake & Output: Intake and Output for Last 24 Hours 01/27/24 01/28/24 01/29/24 23:59 23:59 23:59 Intake Total 1281.75 / 1281.75 1050 / 1050 Balance 1281.75 / 1281.75 1050 / 1050 Lab / Micro Data 01/29/24 06:44 01/29/24 06:44 Labs: Laboratory Results - last 24 hr 01/28/24 15:18: WBC 19.1 H, RBC 4.10 L, Hgb 13.2, Hct 39.8, MCV 97.1, MCH 32.2 H , MCHC 33.2, RDW Std Deviation 47.6 H, RDW Coeff of Lui 13.3, Plt Count 417, MPV 9.9, Immature Gran % (Auto) 2.200 H, Neut % (Auto) 84.3 H, Lymph % (Auto) 7.5 L, [place] % (Auto) 5.0, Eos % (Auto) 0.6, Baso % (Auto) 0.4, Absolute Neuts (auto) 16.1 H, Absolute Lymphs (auto) 1.44, Nucleated RBC % 0, Sodium 138, Potassium 3.8, Chloride 104, Carbon Dioxide 28.0, Anion Gap 6, BUN 24 H, Creatinine 1.22 H , Estim Creat Clear Calc 49.19, Est GFR (MDRD) Af Amer 56 L, Est GFR (MDRD) Non- Af 46 L, BUN/Creatinine Ratio 19.7, Glucose 133 H, Calcium 9.5, Total Bilirubin 0.50, Direct Bilirubin 0.16, AST 10 L, ALT 19, Alkaline Phosphatase 62, Troponin I High Sens < 3 L, Total Protein 7.2, Albumin 3.7, Globulin 3.5, Lipase 28 01/28/24 16:05: Lactic Acid 2.5 H* 01/28/24 17:04: Urine Color Yellow, Urine Clarity Clear, Urine pH 7.0, Ur Specific [place] 1.010, Urine Protein 15 H, Urine Glucose (UA) Normal, Urine Ketones 50 H, Urine Occult Blood Negative, Urine Nitrite Negative, Urine Bilirubin Negative, Urine Urobilinogen 1 H, Ur Leukocyte Esterase 25 H, Urine RBC Not Reportable, Urine WBC 0-5 SEEN, Ur Squamous Epith Cells 0-5 SEEN, Urine Bacteria RARE, Urine Mucus 1+ 01/28/24 18:14: Troponin I High Sens 5 01/28/24 20:28: Lactic Acid 1.3 01/29/24 06:44: WBC 17.2 H, RBC 3.48 L, Hgb 11.2 L, Hct 35.0 L, MCV 100.6 H, MCH 32.2 H, MCHC 32.0, RDW Std Deviation 49.2 H, RDW Coeff of Lui 13.4, Plt Count 296, MPV 9.4, Immature Gran % (Auto) 1.400 H, Neut % (Auto) 84.0 H, Lymph % (Auto) 5.4 L, [place] % (Auto) 8.2, Eos % (Auto) 0.5, Baso % (Auto) 0.5, Absolute Neuts (auto) 14.5 H, Absolute Lymphs (auto) 0.93, Nucleated RBC % 0, Sodium 138, Potassium 3.5, Chloride 109 H, Carbon Dioxide 24.0, Anion Gap 5, BUN 20 H, C reatinine 1.06 H, Estim Creat Clear Calc 55.00, Est GFR (MDRD) Af Amer 66, Est GFR (MDRD) Non-Af 55 L, BUN/Creatinine Ratio 18.9, Glucose 121 H, Calcium 8.1 L, Total Bilirubin 1.30 H, AST 98 H, ALT 137 H, Alkaline Phosphatase 66, Total Protein 5.8 L, Albumin 2.9 L, Globulin 2.9, Albumin/Globulin Ratio 1.0 Radiography Diagnostic Testing: Radiology Impression Abdomen/Pelvis CT 01/28/24 15:53 IMPRESSION: Distended gallbladder with multiple stones but no definitive evidence for acute cholecystitis. Ultrasound or HIDA scan would be helpful for further evaluation if clinically warranted Electronically Signed: Harpreet Gao MD at 16:42 EDT , Gallbladder Ultrasound 01/28/24 16:30 IMPRESSION: Mild biliary sludge and gallstones with sonographic evidence for acute cholecystitis. Dilated common bile duct without intraductal stone of indeterminate etiology. This may be further assessed with MRI/MRCP if indicated. Electronically Signed: Harpreet Gao MD at 18:10 EDT , Physical Exam GI GI Narrative: Abdomen- soft, tenderness in right upper quadrant with palpation and guarding. Assessment & Plan Assessment/Plan (1) Acute cholecystitis due to biliary calculus: PLAN: I am following this patient in conjunction with Dr. Motta. He has independently evaluated this patient. Plan for laparoscopic cholecystectomy with intraoperative cholangiogram with Dr. Motta later today. Patient's questions were completely answered. Charges/Coding Visit Charges Inpatient E&M: 85910 Subs Hosp L1 (pre-op )
--- NOTE | 2024-01-29 10:03 | CASEMGMT ---
TAMELA HUNT Assessment Face to Face with patient for initial transition planning/care coordination assessment. TAMELA HUNT introduced self and role at [facility], pt voices understanding. Pt is A&Ox4 and is resting comfortably in bed and is calm. Care providers, pharmacy, and demographics verified. Admitting dx: Acute Cholecystitis LACE Strata: 2 PCP: Jayda Specialists: Hola (Oncology), Krunal (Seasonal Recruiter) Preferred Pharmacy: [facility] Insurance: [employer] A/B, [employer] Prescription Benefit: Yes LNOK: Carlos Cortez (H), Celso Cortez (Son) Living Arrangements: Pt lives with her in a bungalow style home with 2 steps to enter ADLs/IADLs: Ind. Transportation: Self, DME: CPAP @ HS only with no additional oxygen. BP Monitor. Pox. Cane. HHC/SNF: Denies history or needs Pt?s goal: Home Plan: Home no needs. 6-Click is 24. Pt is scheduled for a lap eliezer today at 1600. Pt states that her son lives close and that he and her can care for her at home as needed. Pt denies further questions or concerns at this time. Ammon Magaña RN, CM
[2024-01-29] MEDS: Losartan Potassium 50 MG Tablet PO (10:47)
[2024-01-29] MEDS: hydroCHLOROthiazide 12.5mg 12.5 MG PO (10:47)
--- NOTE | 2024-01-29 14:41 | CHAPLAIN ---
Type of Pastoral Visit _x__ Initial Visit ___ Follow-up Visit ___ On-call Visit ___ General Patient Visit ___ Spiritual Assessment ___ Family Conference ___ Bereavement ___ Rapid Response ___ Code Blue ___ Other (describe below) Pastoral Care Referral From _x__ Patient ___ Family ___ Nurse ___ Physician ___ Model Maker Scale ___ Ssrs Developer ___ Other (describe below) Sacrament/Intervention _x__ Active listening ___ Anointing ___ Restoration ___ Bereavement ___ Communion ___ Leena exploration ___ ___ Life review _x__ Prayer ___ Reconciliation ___ Sacrament of Sick _x__ Supportive presence ___ Wedding ___ Other (describe below) Pastoral Comments saw this patient prior to her scheduled surgery; pt admits to having pain and expects her to come in before surgery begins; pt has a casual leena connection but seeks prayer support for her surgery; pt expresses thanks for the care given at this time
--- NOTE | 2024-01-29 14:52 | PCM.PRE.AN2 ---
ASA Classification* ASA Classification ASA Classification: 2 and E Assessment & Plan Anesthesia* Anesthesia Assessment Anesthesia Assessment: Discussed sedation and/or anesthesia options, risks, benefits, and alternatives with patient/parents/legal guardian/POA. Questions invited. The patient/parents/legal guardian/POA seems to understand and agrees to proceed with anesthesia plan. Reviewed the physical assessment, medical history, allergy history and patient home medications list prior to surgery/procedure/anesthetic and documented any changes. Performed airway and anesthesia risk assessments. Anesthesia Type Anesthesia Type: General (see written pre anesthesia record for full assessment) Anesthesia Focused Assessment* Temperature: 97.8 F Pulse Rate: 88 Blood Pressure: 119/56 Respiratory Rate: 18 Pulse Ox: 96 Airway Assessment Mouth opens: >3 cm Mallampati Score: II Focused Labs Anesthesia Preop lab: CBC WBC 17.2 K/mm3 (4.4-11.0) H 01/29/24 06:44 RBC 3.48 M/mm3 (4.2-5.4) L 01/29/24 06:44 Hgb 11.2 g/dL (12.0-15.0) L 01/29/24 06:44 Hct 35.0 % (37-47) L 01/29/24 06:44 Plt Count 296 K/mm3 (150-450) 01/29/24 06:44 CHEMISTRY Potassium 3.5 mmol/L (3.5-5.1) 01/29/24 06:44 Sodium 138 mmol/L (136-145) 01/29/24 06:44 Magnesium 2.1 mg/dL (1.6-2.6) 03/29/22 10:45 BUN 20 mg/dL (7-18) H 01/29/24 06:44 Creatinine 1.06 mg/dL (0.55-1.02) H 01/29/24 06:44 Glucose 121 mg/dL (74-106) H 01/29/24 06:44 TSH 1.17 uIU/mL (0.358-3.74) 06/05/21 11:21 COAG Pre-Assessment Diagnosis/Proposed Procedure Planned Operative Procedure(s): lap eliezer Anesthesia History Anesthesia History - director organizational: Anesthesia History - director organizational Hx Hospitalization Yes 06/08/20 09:02 Any Problems With Anesthesia No 01/28/24 21:01 Cholinesterase deficiency No 01/28/24 21:01 You/Your Family Experience No 01/28/24 21:01 fever (hyperthermia) with Relationship Recent Exposure to Contagious No 01/28/24 21:01 Disease Does patient have nerve No 01/28/24 21:01 stimulator Patient instructed to have device shut off --Does patient have Pacemaker No 01/29/24 14:11 or ICD? When Was Last Pacemaker Check QUESTION #4 FULL TEXT: You/Your Family Experience fever (hyperthermia) with Anesthesia Last Oral Intake Last Oral intake: Last Oral Intake NPO since 00:00 01/29/24 14:11 Meds taken in AM with sips of Yes 01/29/24 14:11 water? Meds patient instructed to see MAR 01/29/24 14:11 take am of surgery PONV PONV - director organizational: PONV - director organizational Female HX of Motion Sickness HX of N/V After Surgery Non-Smoker Duration of Surgery greater than 60 minutes Number of Risk Factors PONV Score Height & Weight Height & Weight: Anesthesia: Height & Weight Height 5 ft 5 in 01/29/24 14:11 Weight: 88.4 kg 01/29/24 14:11 Body Mass Index (BMI) 32.4 01/29/24 14:11 Respiratory Assessment Respiratory Assessment - director organizational: Respiratory Tract Infection Hx - director organizational Hx Respiratory Tract Infection No 01/28/24 21:01 STOP Sleep Apnea STOP Sleep Apnea - director organizational: STOP Sleep Apnea - director organizational Hx Hypertension Yes: CONTROLLED ON MED 01/28/24 20:22 Hx Sleep Apnea Yes 01/28/24 20:22 CPAP Yes 01/28/24 20:22 BIPAP No 01/28/24 20:22 Do you snore loudly (louder than talking or can be heard Do you often feel tired/ fatigued/ sleepy during daytime? Has anyone observed you stop breathing during sleep? STOP Results Positive 01/28/24 20:22 QUESTION #5 FULL TEXT : Do you snore loudly (louder than talking or can be heard through closed doors)? Tobacco Use History Tobacco Use History - director organizational: Tobacco Use History - director organizational Tobacco Use Non-smoker 08/24/20 13:40 Smoking Status Former smoker 01/28/24 20:22 Hx Tobacco Use No: [email or web address] 01/28/24 20:22 Years Smoking Packs Smoked per Day Smoking Cessation Date was No - quit smoking greater 01/28/24 20:22 within the last 15 years than 15 years ago Hx Smoking Cessation Date 04/28/89 01/28/24 20:22 Hx Smoking Cessation Counseling Hematologic Medial History Hematologic Hx - director organizational: Hematologic Medical Hx - artificial fly tier Hx of Blood Transfusion Yes 01/28/24 20:22 Hx of Transfusion in last 3 No 01/28/24 20:22 Months Date of Last Transfusion (if within last 3 months) Ever experience any problems No 01/28/24 20:22 with transfusion(s)? Specify any problems Hx of Preganancy in last 3 No 01/28/24 20:22 Months Nurse Filling Out Transfusion DREDICK 01/28/24 20:22 & Questions: Date: 01/28/24 01/28/24 20:22 Time: 20:23 01/28/24 20:22 Patient unable to answer at this time (ie. confused, unrespo /Reproduction History /Reproductive History - director organizational: /Reproductive Hx- director organizational Hx Now No 01/28/24 21:01 Gestational Age (in weeks): EDC: Hx Hx Para Hx Section SAB No 01/28/24 21:01 Active Medications Active Medications: Current Medications Generic Name Dose Route Start Last Admin Trade Name Freq PRN Reason Stop Dose Admin Acetaminophen 500 mg 01/28/24 19:41 01/29/24 12:57 Acetaminophen 500 Mg Tablet PO 500 mg Q6H PRN PRN Administration Pain Score 1-10 Albuterol Sulfate 2.5 mg 01/28/24 19:48 Albuterol 2.5 Mg/3 Ml Vial.Neb. INHALATION Q6H PRN SOB/WHEEZING Anastrozole 1 mg 01/30/24 10:00 Anastrozole 1 Mg Tablet PO DAILY CARSON Hydrochlorothiazide 12.5 mg 01/29/24 10:00 01/29/24 10:47 Hydrochlorothiazide 12.5mg PO 12.5 mg DAILY CARSON Administration Hydromorphone HCl 0.5 mg 01/28/24 19:41 01/29/24 13:59 Hydromorphone 0.5 Mg/0.5 Ml Syringe IV 0.5 mg Q4H PRN PRN Administration Pain Score 6-10 Hydroxychloroquine Sulfate 200 mg 01/29/24 22:00 Hydroxychloroquine 200 Mg Tablet PO BID CARSON Sodium Chloride 1,000 mls @ 125 mls/hr 01/28/24 19:45 01/29/24 12:57 IV 125 mls/hr .Q8H CARSON Administration Piperacillin Sod/Tazobactam 50 mls @ 12.5 mls/hr 01/28/24 22:00 01/29/24 14:02 Sod 3.375 gm/ Sodium Chloride IV 12.5 mls/hr Q8 CARSON Administration Sodium Chloride 250 mls @ 15 mls/hr 01/28/24 20:12 01/29/24 12:51 IV 0 mls/hr .[id number] PRN Infusion Additional IVPB Infusion Sodium Chloride 250 mls @ 15 mls/hr 01/28/24 20:12 IV .[id number] PRN Saline Flush Losartan Potassium 50 mg 01/29/24 10:00 01/29/24 10:47 Losartan Potassium 50 Mg Tablet PO 50 mg DAILY CARSON Administration Ondansetron HCl 4 mg 01/28/24 19:41 01/29/24 14:01 Ondansetron 4 Mg/2 Ml Vial IV 4 mg Q6H PRN PRN Administration NAUSEA/VOMITING Paroxetine HCl 30 mg 01/30/24 10:00 Paroxetine 10 Mg Tablet PO DAILY CARSON Sodium Chloride 10 - 40 ml 01/28/24 20:12 01/29/24 13:59 0.9% Saline Lock 10 Ml Syringe IV 10 ml UD PRN Administration SALINE FLUSH Trazodone HCl 100 mg 01/28/24 22:00 01/28/24 22:05 Trazodone 100 Mg Tablet PO 100 mg QHS CARSON Administration PFSH Medical History Insomnia History of breast cancer Dense breast tissue Screening for breast cancer Palpitation Breast pain, right Gastritis Ear ache Dermatitis Diarrhea Lumbar radiculopathy Left shoulder pain Microscopic colitis Colitis Diverticulitis Dry skin dermatitis Obstructive sleep apnea Chronic diarrhea Sleep apnea Hypersomnolence Dense breast tissue on mammogram Screening for thyroid disorder History of tobacco use Encounter for screening for malignant neoplasm of lung BCC (basal cell carcinoma), back Migraine Pain, eye, left ER+ (estrogen receptor positive status) Seasonal allergies Fibromyalgia Personal history of colon cancer Osteoporosis Cancer of left female breast Colon cancer Colon polyps Obesity Hyperlipidemia Asthma Anemia Vitamin D deficiency Herpes labialis Rheumatoid arthritis CKD (chronic kidney disease) History of pulmonary embolus (PE) Essential hypertension Chronic pain Anxiety Home Medications ?Medication ?Instructions ?Recorded ?Last Taken ?Type denosumab 60 mg/mL subcutaneous 60 mg subcut [id number] #1 mL 06/05/21 Unknown Rx syringe (Prolia) valacyclovir 1 gram tablet 1,000 mg PO DAILY PRN Outbreak 11/15/21 Unknown History (Valtrex) prednisone 10 mg tablet 10 mg PO DAILY PRN poly flair 07/02/23 Unknown History olmesartan 20 See Rx Instructions .Route 07/12/23 Unknown Rx mg-hydrochlorothiazide 12.5 mg .COMPLEX #90 tabs tablet anastrozole 1 mg tablet 1 mg PO DAILY #90 tabs 09/18/23 Unknown Rx epinephrine 0.3 mg/0.3 mL 0.3 mg (0.3 mL) IM Q5-15M PRN 09/18/23 Unknown Rx injection, auto-injector (EpiPen anaphylaxis #4 ea 2-Federico) hydroxychloroquine 200 mg tablet 200 mg PO BID 11/24/23 Unknown History (Plaquenil) trazodone 100 mg tablet 100 mg PO QHS Sleep 11/24/23 Unknown History albuterol sulfate 90 mcg/actuation 2 puff inhalation Q6H PRN Asthma 12/25/23 Unknown Rx aerosol inhaler #8.5 grams paroxetine HCl 30 mg tablet 30 mg PO DAILY #90 tabs 12/25/23 Unknown Rx Allergy/AdvReac Type Severity Reaction Status Date / Time Iodinated Contrast Media AdvReac Severe Hives Verified 01/08/24 13:59 (CONTRASTS) latex AdvReac Severe Rash Verified 01/08/24 13:59 Family History Brother CAD (coronary artery disease) CABG Myocardial infarction, Onset Age: 40 Grandmother Breast cancer paternal Aunt Breast cancer maternal Lung cancer paternal Sister Rheumatoid arthritis Mayes esophagus Colon polyps Monoclonal gammopathy Father Lung cancer Uncle Lung cancer paternal Mother Vascular dementia Alzheimers disease Other Anxiety and depression Cancer Hyperlipemia Hypertension Osteoporosis Surgical History History of colonoscopy History of rotator cuff surgery History of tooth extraction History of left mastectomy History of colonoscopy with polypectomy History of left breast biopsy (04/2020) History of left heart catheterization (05/16/06) History of hysterectomy History of appendectomy Social History Smoking Status: Former smoker quit date: 04/28/05 pack-years: 30 Tobacco: How many years used: 30 how long ago did patient quit smokin years quit status: quit date established alcohol intake: current substance use type: does not use what type of physical activity do you participate in: walking and weight training Review of Systems (Anesthesia) ROS Narrative System reviewed and no additional complaints, except as documented.
--- NOTE | 2024-01-29 16:23 | RAD_ITS ---
INDICATION: LAP ANJALI EXAMINATION/TECHNIQUE: 3 intraoperative cine clips of the abdomen are presented for evaluation. Total Fluoroscopic Time: 61 seconds AND number of Fluoroscopic Images: 3 clips OR Radiation dosage index: 26.6 mGy COMPARISON: No relevant prior comparison study available FINDINGS: Contrast injected into the common duct through the cystic duct. Small filling defects seen on the initial injection within the cystic duct. This is not seen on the subsequent injections, and was likely an air bubble. No filling defects are identified. There is no biliary ductal dilatation. There is free passage into the duodenum. RAD/Cholangiogram/ O R,Initial IMPRESSION: Negative intraoperative cholangiogram. No persistent ductal filling defect. Electronically Signed: Tristan Rojas MD at 21:03 EDT ,
[2024-01-29] MEDS: Bupiv/Epi 0.25% 30 ML Vial (18:08)
--- NOTE | 2024-01-29 18:09 | PCM.OPRPT ---
Report of Operation Date of Procedure: 01/29/24 Pre-Operative Diagnosis: Acute cholecystitis Post-Operative Diagnosis: Gangrenous cholecystitis with hydrops Surgery/Procedure Performed:: Laparoscopic cholecystectomy with intraoperative cholangiography Description of Surgical Findings:: ? Severe inflammation of the gallbladder with gangrenous changes apparent to the anterior wall ? Hydrops ? Cholangiogram showing significant dilation of the common bile duct without apparent filling defect. Late opacification of the common hepatic duct system without extravasation Surgeon: Robert Motta pie filling mixer: Jaxon Feliciano Type of Anesthesia: General/Supplemental Anesthesiologist: Timmy Alaniz Specimen's removed: Gallbladder Drains: 15 Iraqi round Carson Estimated Blood Loss (mL): 75 Description of Procedure: After proper identification in the preoperative holding area the patient was brought to the operating room where she was positioned supine on the operating room table. Preoperatively SCDs were connected and antibiotics were administered. General anesthesia was then induced. She was then prophylactically dosed with diphenhydramine given her intent to use contrast with her cholangiogram. Patient's abdomen was prepped and draped in usual sterile fashion. A formal timeout was conducted to confirm both patient and the procedure. Procedure was begun with a supraumbilical incision which was extended deeply down to the level of the fascia. The fascia was elevated and incised, as well as the peritoneum. A finger sweep was performed to ensure there were no underlying adhesions and a 12 mm balloon trocar was inserted. Pneumoperitoneum was established at 15 mmHg. Three additional trocars (all 5 mm) were placed in the epigastrium and in the right upper quadrant. Inspection of the peritoneum revealed no inadvertent injury to the viscera below. The gallbladder was visualized with evidence of severe acute inflammation and there was a shroud of omentum about the body of the gallbladder. These attachments were taken down bluntly and the gallbladder fundus was then grasped and elevated cephalad. Then, using careful dissection the peritoneum was opened and the structures of the hepatocystic triangle were delineated. The acuity and severity of the inflammation led to diffuse oozing block where any discrete bleeding was identified it was promptly addressed with selective electrocautery. Once the critical view of safety was obtained, the cystic duct was singly clipped and partially divided with a ductotomy. The proximal duct was milked of any debris until there was backflow of bile. Using an [place] clamp, a cholangiocatheter was fed into the proximal segment of the cystic duct and clamped into place. Under fluoroscopy a cholangiogram was then obtained showing a standard length cystic duct flowing into a dilated common bile duct with unobstructed antegrade flow of contrast into the duodenum. There was also retrograde flow through the common hepatic duct into the right and left hepatic ducts. Satisfied with this result, the cholangiocatheter was withdrawn and the proximal cystic duct was sealed with clips and the cystic duct was completely transected. The same process was used for the cystic artery. The gallbladder was then removed from the gallbladder fossa with the use of electrocautery. This proved challenging as the diffuse oozing and dense inflammatory process did not clearly signal the plane between these 2 structures. Selective electrocautery was used to obtain hemostasis in the gallbladder fossa. At 1 point an inadvertent rent was made in the posterior wall of the gallbladder resulting in local spillage of bile. This was suctioned free of the peritoneum and a displaced gallstone was set aside for later retrieval. Ultimately the gallbladder was completely removed and the gallbladder was placed in an Endo Catch bag?as well as the displaced gallstone. Morison's pouch was irrigated and the effluent was suctioned free of the peritoneum. Hemostasis was then obtained in the gallbladder fossa using argon beam coagulation. Near the patient's ductwork there is some raw surface area so a piece of fibrillar hemostatic agent was positioned in the proximal region of the fossa and hemostasis was again confirmed. Lastly a 15 [place] round Carson drain was fed into the patient's most lateral right upper quadrant port site and positioned along the inferior margin of the liver and in Morison's pouch to collect any residual irrigation. This was secured at the skin using a 3-0 nylon suture. Pneumoperitoneum was evacuated and the fascia of the 12 mm port site was closed with #1Vicryl in a [id number]-[id number]-jicwn fashion. A total of 30 mL of anesthetic was injected at the port sites for postoperative pain control. The skin of each port site was then closed by the CHANNEL PROGRAM MANAGER in subcuticular fashion using 4-0 Monocryl. The drain was connected bulb suction. Steri-Strips and bandages were applied as dressings. Patient tolerated the procedure well without any apparent complications. On emergence from their anesthetic the patient was taken to PACU for ongoing recovery. Complications None Admit VTE Documentation VTE Present on Admission: Yes VTE Mechan Device Prophylaxis: SCD's Procedures Digestive 40xxx-49xxx: 12983 Laparo cholecystectomy/graph
--- NOTE | 2024-01-29 18:12 | DCINST_ITS ---
Discharge Instructions Diet Discharge Diet: No restrictions Activity Discharge Activity: May Not Drive (No driving while using narcotic pain medication) and May Shower (Postoperative day 1) May shower in (days): 1 Ice area for (Minutes): 20 Lifting Restrictions: No lifting greater than 15 pounds for 2 weeks after surgery Dressing / Incision Call your doctor if your incision/area has: Continuous Slow Oozing, Increased Pain/ Swelling, Increased Redness, Foul Smelling Discharge and Swelling at the incision site Call your doctor if you observe: Fever of 101 or Higher Remove Dressing in: 1 day (Please leave Steri-Strips intact until they fall off spontaneously or are taken off at your follow-up visit) Cleanse incision/area with: Soap & Water Follow Up Care Please Follow Up With: Robert Motta MD When: 7-10days postop Test Results: Test results from this visit will be discussed in further detail at your follow- up appointment, if applicable. Discharge Plan Admission Admit Date/Time: 01/28/24 19:41 Primary Reason for Your Visit: Cholecystitis Attending Provider: Robert Motta Primary Care Provider: Chris Montelongo Discharge Orders/Prescriptions Prescriptions: New oxycodone 5 mg tablet 5 mg PO Q6H PRN (Reason: pain) 3 Days Qty: 14 0RF Continued Prolia 60 mg/mL syringe 60 mg subcut [id number] Qty: 1 1RF valacyclovir [Valtrex] 1 gram tablet 1,000 mg PO DAILY PRN (Reason: Outbreak) prednisone 10 mg tablet 10 mg PO DAILY PRN (Reason: poly flair) Patient Comments: take 1 tablet by mouth once daily TAKE FOR 1-5 DAYS WITH FLARE trazodone 100 mg tablet 100 mg PO QHS hydroxychloroquine [Plaquenil] 200 mg tablet 200 mg PO BID olmesartan-hydrochlorothiazide 20-12.5 mg tablet See Rx Instructions .ROUTE .COMPLEX Qty: 90 3RF Dose Instruction: take 1 tablet by mouth once daily Rx Instructions: take 1 tablet by mouth once daily epinephrine [EpiPen 2-Federico] 0.3 mg/0.3 mL auto-injector 0.3 mg IM Q5-15M PRN (Reason: anaphylaxis) Qty: 4 3RF Rx Instructions: do not exceed 3 doses per episode anastrozole 1 mg tablet 1 mg PO DAILY Qty: 90 3RF albuterol sulfate 90 mcg/actuation HFA aerosol inhaler 2 puff INHALATION Q6H PRN (Reason: Asthma) Qty: 8.5 3RF paroxetine HCl 30 mg tablet 30 mg PO DAILY Qty: 90 1RF Referrals / Follow Up: Chris Montelongo MD [Primary Care Provider] - Disposition Disposition (needs filled in before D/C Order can be placed): Home, Self Care
--- NOTE | 2024-01-29 18:46 | PCM.POST.ANE ---
Anesthesia: Postop Eval I Current Vital Signs Temperature: 98.8 F Pulse Rate: 84 Blood Pressure: 150/78 Respiratory Rate: 17 Pulse Ox: 100 Assessment Airway patent: Yes Spontaneous unlabored respirations: Yes nausea: No Vomiting: No Anesthesia Complication: No Fluid Hydration Crystalloid volume administer (ml): 1,400 Total IV fluid infused: 1,400 Progress Note Anesthesia document: Postop Eval 1 completed: Yes
--- NOTE | 2024-01-29 18:47 | POSTOPAN2_ITS ---
Anesthesia Postop Eval I Sum Postop Eval Completion status Anesthesia document: Postop Eval 1 completed: Yes Anesthesia Postop Eval I Summary Anesthesia Postop Eval I Summary: Anesthesia Postop Eval I: Assessment Summary Airway patent Yes 01/29/24 18:46 GRINDER SET UP OPERATOR THREAD TOOL.[email or web address] Spontaneous unlabored Yes 01/29/24 18:46 GRINDER SET UP OPERATOR THREAD TOOLBROOK respirations Mental status nausea No 01/29/24 18:46 GRINDER SET UP OPERATOR THREAD TOOL.[email or web address] Vomiting No 01/29/24 18:46 GRINDER SET UP OPERATOR THREAD TOOLBROOK Anesthesia Postop Eval I: Fluid Summary Crystalloid volume administer 1,400 01/29/24 18:46 GRINDER SET UP OPERATOR THREAD TOOL.JACKIE (ml) Colloids volume administered ( ml) Blood Product volume administered (ml) Total IV fluid infused 1,400 01/29/24 18:46 GRINDER SET UP OPERATOR THREAD TOOL.JACKIE Anesthesia Postop Eval I: Summary Notes Anesthesia Complication No 01/29/24 18:46 GRINDER SET UP OPERATOR THREAD TOOLBROOK Anesthesia Complication Comment: Post-operative progress note Anesthesia: Postop Eval II Evaluation Mental status: Awake Pain Level: 0 nausea: No Vomiting: No
--- NOTE | 2024-01-29 18:47 | PCM.POSTANE2 ---
Anesthesia Postop Eval I Sum Postop Eval Completion status Anesthesia document: Postop Eval 1 completed: Yes Anesthesia Postop Eval I Summary Anesthesia Postop Eval I Summary: Anesthesia Postop Eval I: Assessment Summary Airway patent Yes 01/29/24 18:46 TRIAGE REGISTER [email or web address].[email or web address] Spontaneous unlabored Yes 01/29/24 18:46 TRIAGE REGISTER NURSEBROOK respirations Mental status nausea No 01/29/24 18:46 TRIAGE REGISTER NURSE.[email or web address] Vomiting No 01/29/24 18:46 TRIAGE REGISTER NURSEBROOK Anesthesia Postop Eval I: Fluid Summary Crystalloid volume administer 1,400 01/29/24 18:46 TRIAGE REGISTER NURSE.JACKIE (ml) Colloids volume administered ( ml) Blood Product volume administered (ml) Total IV fluid infused 1,400 01/29/24 18:46 TRIAGE REGISTER NURSE.[email or web address] Anesthesia Postop Eval I: Summary Notes Anesthesia Complication No 01/29/24 18:46 TRIAGE REGISTER NURSEBROOK Anesthesia Complication Comment: Post-operative progress note Anesthesia: Postop Eval II Evaluation Mental status: Awake Pain Level: 0 nausea: No Vomiting: No
--- NOTE | 2024-01-29 20:48 | NURSING ---
asked pt if someone can bring her home cpap in, pt states they wont be able to find it because its in her garage somewhere she is noncompliant with it. notified nurse of pt desat while sleeping, used her IS & PEP, and on 4L O2 now up from 2
[2024-01-29] MEDS: 0.9% Normal Saline (250mL Bag) 250 ML 15 ML IV (23:06)
[2024-01-29] MEDS: 0.9% Normal Saline (1000mL) 1,000 ML 75 ML IV (23:10)
--- NOTE | 2024-01-30 | GALL_PTH ---
PATHOLOGY RESULTS PATIENT: KIEL ENGLISH LOC: MS3 U#:[id number] AGE/SX: 68/F ROOM: [facility] RE01/28/[address]: Dr. Robert Motta MD : 1955 BED: 1 DIS: 02/01/2024 SPEC #: [id number] RECD: 01/30/24 10:05 STATUS: BALDEMAR BELTRÁN #: [id number] DIMITRI: 01/30/24 00:[address]: Robert Motta DEPT: SURGICAL PATHOLOGY RECD BY: Sumaya Newton ENTERED: 01/30/24 11:25 SP TYPE: CASEY HOWARD DR: Dr. Chris Montelongo MD Tissues: Gallbladder, NOS Procedures: Surgery Specimen Level III HEADER OPERATION: Laparoscopic, cholecystectomy with IOC PRE-OP DIAGNOSIS: Acute cholecystitis due to biliary calculus TISSUE SUBMITTED: Gallbladder MICROSCOPIC DIAGNOSIS Gallbladder, cholecystectomy: Acute and chronic, ulcerated, hemorrhagic cholecystitis and cholelithiasis. Reactive epithelial changes. RABIA. 02/02/2024 MICROSCOPIC DESCRIPTION Slides are reviewed. GROSS DESCRIPTION Received is one container labeled with the patient's name and designated gallbladder. The specimen consists of a gallbladder measuring 11.5 cm in length and up to 5.0 cm in diameter. The external surface is pink-suero, smooth and glistening for the most part. Focally it is granular, hemorrhagic and contains cautery artifact. The gallbladder contains hemorrhagic bile and multiple blood clots. Present in the gallbladder and also in the container are four variable sized greenish-black stones measuring in aggregate 3.2 x 2.8 x 1.0 cm and 1.2 to 1.5 cm in greatest dimension. The mucosa is congested and ulcerated and covered with bradley-white purulent exudate. Section of the gallbladder wall reveal congested and hemorrhagic cut surfaces. The gallbladder wall measures up to 0.3 cm in thickness. Natural Gas Trader sections from the gallbladder and the cystic duct are submitted in one cassette. / SJ: 01/30/2024 TC:2 CPT: 58187
[2024-01-30 04:50] VITALS: BP 141/60; PULSE 90; RESP 16; TEMP 36.9; O2SAT 99
[2024-01-30] MEDS: Piperacil/Tazobactam 3.375 GM in 0.9% Normal Saline (50mL MB+) 50 ML IV ×3 (05:46→22:29)
[2024-01-30 05:47] VITALS: O2SAT 99
[2024-01-30] MEDS: Acetaminophen 500 MG Tablet PO (05:49)
[2024-01-30 06:35] LABS: Absolute Lymphocyte Count 0.34 X10^3/uL (0.83-4.51); Absolute Neutrophil Count 19.2 X10^3/uL (2.0-7.7); Basophil# 0.04 X10^3/uL; Basophil% 0.2 % (0-1); Eosinophil# 0.06 X10^3/uL; Eosinophils% 0.3 % (0-5); Hematocrit 34.2 % (37-47); Hemoglobin 10.7 g/dL (12.0-15.0); Lymphocyte # 0.34 X10^3/ul (0.83-4.51); Lymphocyte % 1.6 % (19-41); Mean Corp Hgb Conc 31.3 g/dL (32-36); Mean Corpuscular Hgb 32.1 pg (27.0-32.0); Mean Corpuscular Volume 102.7 fL (81-99); Mean Platelet Vol. 9.7 fl (6.2-12.0); Monocyte# 1.11 X10^3/uL; Monocyte% 5.3 % (0-10); NRBC Flagged by Analyzer 0 % (0-5); Neutrophil # 19.19 X10^3/uL (2.7-7.7); POSITIVE DIFFERENTIAL YES; Platelet Count 274 K/mm3 (150-450); RBC Distribution Width CV 13.6 % (11.6-14.6); RBC Distribution Width SD 51.8 fl (35.1-43.9); Red Blood Count 3.33 M/mm3 (4.2-5.4); White Blood Count 21.1 K/mm3 (4.4-11.0)
[2024-01-30 07:14] LABS: ALB/GLOB Ratio 0.8 RATIO (0.9-2.4); AST(SGOT) 90 U/L (15-37); Alanine Aminotransfer ALT/SGPT 151 U/L (13-56); Albumin, Serum 2.6 g/dL (3.2-5.0); Alkaline Phosphatase 94 U/L (45-117); Anion Gap 8 (5-15); BUN 16 mg/dL (7-18); BUN/Creat Ratio 15.2 RATIO (10-20); Calcium,Total 7.8 mg/dL (8.5-10.1); Chloride 111 mmol/L (98-107); Creatinine, Serum 1.05 mg/dL (0.55-1.02); EST Glomerular Filtration Rate 55 mL/min (>60); Est Glom Filt Rate - Afr Amer 67 mL/min (>60); Estimated Creatinine Clearance 55.53 ml/min; Globulin 3.3 g/dL (2.2-4.2); Glucose 101 mg/dL (74-106); Protein, Total 5.9 g/dL (6.4-8.2); Sodium Level 138 mmol/L (136-145)
--- NOTE | 2024-01-30 07:45 | PN.SURG_ITS ---
Subjective Subjective Patient states she still has some soreness on the right side but it is improved. Patient's NAZIA is sanguinous Objective Data Objective Data Vital Signs: Vital Signs Temp Pulse Resp BP Pulse Ox O2 Del Method O2 Flow Rate 98.5 F 90 16 141/60 H 99 Nasal Cannula 2 01/30/24 04:50 01/30/24 04:50 01/30/24 04:50 01/30/24 04:50 01/30/24 05:47 01/30/24 07:33 01/30/24 07:33 Oxygen Flow Rate (L/min) 2 Oxygen Delivery Method Nasal Cannula Weight: 194 lb 14.218 oz Body Mass Index (BMI) 32.4 Intake & Output: Intake and Output for Last 24 Hours 01/28/24 01/29/24 01/30/24 23:59 23:59 23:59 Intake Total 1281.75 / 1281.75 3282.00 / 3282.00 450 / 450 Output Total 60 / 60 Balance 1281.75 / 1281.75 3282.00 / 3282.00 390 / 390 Lab / Micro Data 01/30/24 05:59 01/30/24 05:59 Labs: Laboratory Results - last 24 hr 01/30/24 05:59: WBC 21.1 H, RBC 3.33 L, Hgb 10.7 L, Hct 34.2 L, MCV 102.7 H, MCH 32.1 H, MCHC 31.3 L, RDW Std Deviation 51.8 H, RDW Coeff of Lui 13.6, Plt Count 274, MPV 9.7, Immature Gran % (Auto) 1.600 H, Neut % (Auto) 91.0 H, Lymph % (Auto) 1.6 L, [place] % (Auto) 5.3, Eos % (Auto) 0.3, Baso % (Auto) 0.2, Absolute Neuts (auto) 19.2 H, Absolute Lymphs (auto) 0.34 L, Nucleated RBC % 0, Sodium 138, Potassium 4.0, Chloride 111 H, Carbon Dioxide 19.0 L, Anion Gap 8, BUN 16, Creatinine 1.05 H, Estim Creat Clear Calc 55.53, Est GFR (MDRD) Af Amer 67, Est GFR (MDRD) Non-Af 55 L, BUN/Creatinine Ratio 15.2, Glucose 101, Calcium 7.8 L, Total Bilirubin 0.90, AST 90 H, ALT 151 H, Alkaline Phosphatase 94, Total Protein 5.9 L, Albumin 2.6 L, Globulin 3.3, Albumin/Globulin Ratio 0.8 L Radiography Diagnostic Testing: Radiology Impression Cholangiogram 01/29/24 16:23 IMPRESSION: Negative intraoperative cholangiogram. No persistent ductal filling defect. Electronically Signed: Tristan Rojas MD at 21:03 EDT , Physical Exam Resp normal respiratory effort Cardio regular rate GI GI Narrative: Abdomen: Soft, nondistended, tender near incision's dressed clean dry and intact, no peritoneal signs, NAZIA sanguinous Assessment & Plan Assessment/Plan (1) S/P laparoscopic cholecystectomy: PLAN: Plan Will advance diet to regular. Labs are pending. Depending on white blood cell count possible stopping of antibiotics removal of drain. Addendum: Patient with blood count is 21 we will plan to continue Zosyn IV and likely keep drain in place today and removed tomorrow. Sarai Armijo M.D. Pager: [phone] [facility] [address] [place] [address], [address] [place] [address] Office: [phone]
[2024-01-30 07:47] VITALS: BP 105/52; PULSE 89; RESP 15; TEMP 37.2; O2SAT 98
[2024-01-30] MEDS: Ondansetron 4 MG/2 ML Vial IV ×2 (10:11→22:40)
[2024-01-30] MEDS: oxyCODONE 5 MG Tablet PO ×3 (10:11→22:29)
[2024-01-30] MEDS: PARoxetine 10 MG Tablet 30 MG PO (10:13)
[2024-01-30] MEDS: Anastrozole 1 MG TABLET PO (10:13)
[2024-01-30 11:54] VITALS: BP 106/66; PULSE 85; RESP 15; TEMP 37.3; O2SAT 95
[2024-01-30] MEDS: 0.9% Saline Lock 10 ML Syringe IV (14:14)
--- NOTE | 2024-01-30 14:59 | CASEMGMT ---
Social Work SW met with pt to discuss advance directives. Pt provided copy of living will but did not have a copy of [facility] which names her Carlos Cortez. Pt will ask her to bring this in. MELISSA Badillo
[2024-01-30 15:52] VITALS: BP 128/61; PULSE 81; RESP 16; TEMP 36.9; O2SAT 96
--- NOTE | 2024-01-30 20:08 | CPS ---
Patient refused PAP therapy for night time use. Patient wearing o2 at night.
[2024-01-30 20:55] VITALS: BP 117/58; PULSE 74; RESP 16; TEMP 37.5; O2SAT 93
[2024-01-30] MEDS: traZODone 100 MG Tablet PO (22:29)
[2024-01-30] MEDS: Hydroxychloroquine 200 MG Tablet PO (22:29)
[2024-01-31 01:30] VITALS: BP 126/62; PULSE 82; RESP 16; TEMP 36.4; O2SAT 92
[2024-01-31] MEDS: Acetaminophen 500 MG Tablet PO ×2 (05:16→17:20)
[2024-01-31] MEDS: Piperacil/Tazobactam 3.375 GM in 0.9% Normal Saline (50mL MB+) 50 ML IV ×3 (05:16→21:13)
[2024-01-31 05:19] VITALS: BP 139/69; PULSE 83; RESP 16; TEMP 36.7; O2SAT 96
[2024-01-31] MEDS: oxyCODONE 5 MG Tablet PO ×2 (05:36→17:20)
[2024-01-31 07:18] LABS: Absolute Lymphocyte Count 0.82 X10^3/uL (0.83-4.51); Absolute Neutrophil Count 10.7 X10^3/uL (2.0-7.7); Basophil# 0.02 X10^3/uL; Basophil% 0.2 % (0-1); Eosinophil# 0.05 X10^3/uL; Eosinophils% 0.4 % (0-5); Hematocrit 31.7 % (37-47); Lymphocyte # 0.82 X10^3/ul (0.83-4.51); Lymphocyte % 6.5 % (19-41); Mean Corp Hgb Conc 31.5 g/dL (32-36); Mean Corpuscular Hgb 32.1 pg (27.0-32.0); Mean Corpuscular Volume 101.6 fL (81-99); Mean Platelet Vol. 9.4 fl (6.2-12.0); Monocyte# 0.96 X10^3/uL; Monocyte% 7.6 % (0-10); NRBC Flagged by Analyzer 0 % (0-5); Neutrophil # 10.67 X10^3/uL (2.7-7.7); Neutrophil % 83.9 % (47-70); Platelet Count 257 K/mm3 (150-450); RBC Distribution Width CV 13.5 % (11.6-14.6); RBC Distribution Width SD 49.9 fl (35.1-43.9); Red Blood Count 3.12 M/mm3 (4.2-5.4); White Blood Count 12.7 K/mm3 (4.4-11.0)
[2024-01-31 07:22] VITALS: O2SAT 95
[2024-01-31 07:25] LABS: AST(SGOT) 38 U/L (15-37); Alanine Aminotransfer ALT/SGPT 96 U/L (13-56); Albumin, Serum 2.4 g/dL (3.2-5.0); Alkaline Phosphatase 80 U/L (45-117); Anion Gap 7 (5-15); BUN 10 mg/dL (7-18); BUN/Creat Ratio 10.7 RATIO (10-20); Bilirubin, Direct 0.24 mg/dL (0.00-0.30); Chloride 111 mmol/L (98-107); Creatinine, Serum 0.94 mg/dL (0.55-1.02); EST Glomerular Filtration Rate 63 mL/min (>60); Est Glom Filt Rate - Afr Amer 76 mL/min (>60); Estimated Creatinine Clearance 62.03 ml/min; Globulin 3.4 g/dL (2.2-4.2); Glucose 105 mg/dL (74-106); Potassium 3.7 mmol/L (3.5-5.1); Protein, Total 5.8 g/dL (6.4-8.2); Sodium Level 139 mmol/L (136-145)
[2024-01-31 08:10] VITALS: BP 123/69; PULSE 75; RESP 16; TEMP 37.1; O2SAT 96
--- NOTE | 2024-01-31 08:29 | PN.SURG_ITS ---
Subjective Subjective Patient reports she is feeling much better today than yesterday. She denies nausea or vomiting. She is tolerating transitional diet. Objective Data Objective Data Vital Signs: Vital Signs Temp Pulse Resp BP Pulse Ox O2 Del Method O2 Flow Rate 98.8 F 75 16 123/69 H 96 Room Air 2 01/31/24 08:10 01/31/24 08:10 01/31/24 08:10 01/31/24 08:10 01/31/24 08:10 01/31/24 08:10 01/31/24 07:22 Oxygen Flow Rate (L/min) 2 Oxygen Delivery Method Room Air Weight: 194 lb 14.218 oz Body Mass Index (BMI) 32.4 Intake & Output: Intake and Output for Last 24 Hours 01/29/24 01/30/24 01/31/24 23:59 23:59 23:59 Intake Total 3282.00 / 3282.00 1550 / 1950 750 / 750 Output Total 100 / 120 33 / 33 Balance 3282.00 / 3282.00 1450 / 1830 717 / 717 Lab / Micro Data 01/31/24 06:25 01/31/24 06:25 Labs: Laboratory Results - last 24 hr 01/31/24 06:25: WBC 12.7 H, RBC 3.12 L, Hgb 10.0 L, Hct 31.7 L, MCV 101.6 H, MCH 32.1 H, MCHC 31.5 L, RDW Std Deviation 49.9 H, RDW Coeff of Lui 13.5, Plt Count 257, MPV 9.4, Immature Gran % (Auto) 1.400 H, Neut % (Auto) 83.9 H, Lymph % (Auto) 6.5 L, [place] % (Auto) 7.6, Eos % (Auto) 0.4, Baso % (Auto) 0.2, Absolute Neuts (auto) 10.7 H, Absolute Lymphs (auto) 0.82 L, Nucleated RBC % 0, Sodium 139, Potassium 3.7, Chloride 111 H, Carbon Dioxide 21.0, Anion Gap 7, BUN 10, Creatinine 0.94, Estim Creat Clear Calc 62.03, Est GFR (MDRD) Af Amer 76, Est GFR (MDRD) Non-Af 63, BUN/Creatinine Ratio 10.7, Glucose 105, Calcium 8.0 L, Total Bilirubin 0.80, Direct Bilirubin 0.24, AST 38 H, ALT 96 H, Alkaline Phosphatase 80, Total Protein 5.8 L, Albumin 2.4 L, Globulin 3.4 Physical Exam Const oriented x3 and no apparent distress Resp normal respiratory effort GI soft to palpation Palpation: tender Assessment & Plan Assessment/Plan (1) S/P laparoscopic cholecystectomy: PLAN: She is still fairly tender but she says she is feeling better than yesterday. Continue pain control. Her white count is improving. I will keep her here 1 more day on IV antibiotics and recheck white count tomorrow and as long as it is still decreasing I will discharge her home tomorrow. Franco Hernandez MD Pager: [facility] [address] [place] [address], [address] [place] [address] Office:
[2024-01-31] MEDS: HYDROmorphone 0.5 MG/0.5 ML SYRINGE IV ×2 (08:40→21:05)
[2024-01-31] MEDS: 0.9% Saline Lock 10 ML Syringe IV ×2 (08:40→20:43)
[2024-01-31] MEDS: Anastrozole 1 MG TABLET PO (09:24)
[2024-01-31] MEDS: hydroCHLOROthiazide 12.5mg 12.5 MG PO (09:25)
[2024-01-31] MEDS: PARoxetine 10 MG Tablet 30 MG PO (09:25)
[2024-01-31] MEDS: Losartan Potassium 50 MG Tablet PO (09:25)
[2024-01-31] MEDS: Hydroxychloroquine 200 MG Tablet PO ×2 (09:26→23:04)
[2024-01-31 14:05] VITALS: BP 118/52; PULSE 87; RESP 16; TEMP 36.6; O2SAT 98
[2024-01-31 20:11] VITALS: BP 127/65; PULSE 72; RESP 15; TEMP 36.4; O2SAT 99
[2024-01-31] MEDS: Ondansetron 4 MG/2 ML Vial IV (21:01)
[2024-01-31] MEDS: traZODone 100 MG Tablet PO (23:04)
[2024-02-01] MEDS: Piperacil/Tazobactam 3.375 GM in 0.9% Normal Saline (50mL MB+) 50 ML IV (06:10)
--- NOTE | 2024-02-01 07:06 | PCM.PN.SRG ---
Subjective Subjective Patient is feeling well this morning. She says she feels better than yesterday. Denies nausea or vomiting or fevers or chills. Objective Data Objective Data Vital Signs: Vital Signs Temp Pulse Resp BP Pulse Ox O2 Del Method O2 Flow Rate 97.5 F L 72 15 127/65 H 99 Room Air 2 01/31/24 20:11 01/31/24 20:11 01/31/24 20:11 01/31/24 20:11 01/31/24 20:11 02/01/24 02:00 01/31/24 07:22 Oxygen Flow Rate (L/min) 2 Oxygen Delivery Method Room Air Weight: 194 lb 14.218 oz Body Mass Index (BMI) 32.4 Intake & Output: Intake and Output for Last 24 Hours 01/30/24 01/31/24 02/01/24 23:59 23:59 23:59 Intake Total 1550 / 1950 850 / 1250 450 / 450 Output Total 100 / 120 45 / 50 5 / 5 Balance 1450 / 1830 805 / 1200 445 / 445 Lab / Micro Data 01/31/24 06:25 01/31/24 06:25 Labs: Laboratory Results - last 24 hr 01/31/24 06:25: WBC 12.7 H, RBC 3.12 L, Hgb 10.0 L, Hct 31.7 L, MCV 101.6 H, MCH 32.1 H, MCHC 31.5 L, RDW Std Deviation 49.9 H, RDW Coeff of Lui 13.5, Plt Count 257, MPV 9.4, Immature Gran % (Auto) 1.400 H, Neut % (Auto) 83.9 H, Lymph % (Auto) 6.5 L, [place] % (Auto) 7.6, Eos % (Auto) 0.4, Baso % (Auto) 0.2, Absolute Neuts (auto) 10.7 H, Absolute Lymphs (auto) 0.82 L, Nucleated RBC % 0, Sodium 139, Potassium 3.7, Chloride 111 H, Carbon Dioxide 21.0, Anion Gap 7, BUN 10, Creatinine 0.94, Estim Creat Clear Calc 62.03, Est GFR (MDRD) Af Amer 76, Est GFR (MDRD) Non-Af 63, BUN/Creatinine Ratio 10.7, Glucose 105, Calcium 8.0 L, Total Bilirubin 0.80, Direct Bilirubin 0.24, AST 38 H, ALT 96 H, Alkaline Phosphatase 80, Total Protein 5.8 L, Albumin 2.4 L, Globulin 3.4 Physical Exam Const oriented x3 and no apparent distress GI soft to palpation and non-tender Assessment & Plan Assessment/Plan (1) S/P laparoscopic cholecystectomy: PLAN: Patient had severe acute cholecystitis. She is still having her white count downtrending. If her white count returns normal today I will discharge her home on oral antibiotics. Franco Hernandez MD Pager: [facility] [address] [place] [address], [address] [place] [address] Office:
--- NOTE | 2024-02-01 07:08 | PCM.DC.SUM ---
Providers Date of Admission: 01/28/24 Primary Care Physician: Dr. Chris Montelongo MD Reason For Visit: ACUTE CHOLECYSTITIS Diagnosis Discharge Diagnosis (1) S/P laparoscopic cholecystectomy: Status: Acute Code(s): Z90.49 - Acquired absence of other specified parts of digestive tract Plan: Patient had severe acute cholecystitis. She is still having her white count downtrending. If her white count returns normal today I will discharge her home on oral antibiotics. Franco Hernandez MD Pager: [facility] [address] [place] [address] Outpatient [place], [address] [place] [address] Office: Medications at Discharge Home Medications denosumab 60 mg/mL subcutaneous syringe (Prolia) 60 mg subcut [id number] #1 mL 06/05/21 valacyclovir 1 gram tablet (Valtrex) 1,000 mg PO DAILY PRN Outbreak 11/15/21 prednisone 10 mg tablet 10 mg PO DAILY PRN poly flair 07/02/23 olmesartan 20 mg-hydrochlorothiazide 12.5 mg tablet See Rx Instructions .Route .COMPLEX #90 tabs 07/12/23 anastrozole 1 mg tablet 1 mg PO DAILY #90 tabs 09/18/23 epinephrine 0.3 mg/0.3 mL injection, auto-injector (EpiPen 2-Federico) 0.3 mg (0.3 mL) IM Q5-15M PRN anaphylaxis #4 ea 09/18/23 hydroxychloroquine 200 mg tablet (Plaquenil) 200 mg PO BID 11/24/23 trazodone 100 mg tablet 100 mg PO QHS Sleep 11/24/23 albuterol sulfate 90 mcg/actuation aerosol inhaler 2 puff inhalation Q6H PRN Asthma #8.5 grams 12/25/23 paroxetine HCl 30 mg tablet 30 mg PO DAILY #90 tabs 12/25/23 oxycodone 5 mg tablet 5 mg PO Q6H PRN pain 3 days #14 tabs 01/29/24 amoxicillin 500 mg-potassium clavulanate 125 mg tablet (Augmentin) 1 tab PO BID #10 tabs 02/01/24 Hospital Course Operations cholecystecomy Summary of Care Provided Hospital Course: Patient presented with acute cholecystitis and was taken for surgery. Cholecystectomy was complicated due to the amount of inflammation. She was kept on antibiotics postoperatively until her white count returned normal and she was discharged home on oral antibiotics. Weight / BMI Weight Weight: 194 lb 14.218 oz Body Mass Index (BMI) 32.4 ABG / Lab / Microbiology Data 01/31/24 06:25 01/31/24 06:25 Laboratory: Laboratory Results - last 24 hr 01/31/24 06:25: WBC 12.7 H, RBC 3.12 L, Hgb 10.0 L, Hct 31.7 L, MCV 101.6 H, MCH 32.1 H, MCHC 31.5 L, RDW Std Deviation 49.9 H, RDW Coeff of Lui 13.5, Plt Count 257, MPV 9.4, Immature Gran % (Auto) 1.400 H, Neut % (Auto) 83.9 H, Lymph % (Auto) 6.5 L, [place] % (Auto) 7.6, Eos % (Auto) 0.4, Baso % (Auto) 0.2, Absolute Neuts (auto) 10.7 H, Absolute Lymphs (auto) 0.82 L, Nucleated RBC % 0, Sodium 139, Potassium 3.7, Chloride 111 H, Carbon Dioxide 21.0, Anion Gap 7, BUN 10, Creatinine 0.94, Estim Creat Clear Calc 62.03, Est GFR (MDRD) Af Amer 76, Est GFR (MDRD) Non-Af 63, BUN/Creatinine Ratio 10.7, Glucose 105, Calcium 8.0 L, Total Bilirubin 0.80, Direct Bilirubin 0.24, AST 38 H, ALT 96 H, Alkaline Phosphatase 80, Total Protein 5.8 L, Albumin 2.4 L, Globulin 3.4 D/C Instructions Discharge Diet: No restrictions May shower in (days): 1 Ice area for (Minutes): 20 Call your doctor if your incision/area has: Continuous Slow Oozing, Increased Pain/ Swelling, Increased Redness, Foul Smelling Discharge and Swelling at the incision site Call your doctor if you observe: Fever of 101 or Higher Cleanse incision/area with: Soap & Water Please Follow Up With: Robert Motta MD When: 7-10days postop Meaningful Use Info Meaningful Use Meaningful Use Diagnoses (Choose all that apply): None applicable Ischemic Stroke Statin Dosing Therapy Reference: STATIN DOSE THERAPY REFERENCE: * Patients > 75 years receive moderate or high dose statin therapy. * Patients 75 years or YOUNGER should receive HIGH intensity statin dose unless contraindicated. You will be required to document reason for non-treatment if statin daily dose does not meet guidelines. HIGH DOSE STATIN THERAPY DAILY Atorvastatin > than or = to 40 mg Rosuvastatin > than or = to 20 mg Amlodipine + Atorvastatin > than or = to 2.5/40 mg Ezetimibe + Simvastatin 10/80 mg Simvastatin 80mg Discharge Plan Admission Admit Date/Time: 01/28/24 19:41 Primary Reason for Your Visit: Cholecystitis Attending Provider: Robert Motta Primary Care Provider: Chris Montelongo Discharge Orders/Prescriptions Prescriptions: New oxycodone 5 mg tablet 5 mg PO Q6H PRN (Reason: pain) 3 Days Qty: 14 0RF amoxicillin-pot clavulanate [Augmentin] 500-125 mg tablet 1 tab PO BID Qty: 10 0RF Continued Prolia 60 mg/mL syringe 60 mg subcut [id number] Qty: 1 1RF valacyclovir [Valtrex] 1 gram tablet 1,000 mg PO DAILY PRN (Reason: Outbreak) prednisone 10 mg tablet 10 mg PO DAILY PRN (Reason: poly flair) Patient Comments: take 1 tablet by mouth once daily TAKE FOR 1-5 DAYS WITH FLARE trazodone 100 mg tablet 100 mg PO QHS hydroxychloroquine [Plaquenil] 200 mg tablet 200 mg PO BID olmesartan-hydrochlorothiazide 20-12.5 mg tablet See Rx Instructions .ROUTE .COMPLEX Qty: 90 3RF Dose Instruction: take 1 tablet by mouth once daily Rx Instructions: take 1 tablet by mouth once daily epinephrine [EpiPen 2-Federico] 0.3 mg/0.3 mL auto-injector 0.3 mg IM Q5-15M PRN (Reason: anaphylaxis) Qty: 4 3RF Rx Instructions: do not exceed 3 doses per episode anastrozole 1 mg tablet 1 mg PO DAILY Qty: 90 3RF albuterol sulfate 90 mcg/actuation HFA aerosol inhaler 2 puff INHALATION Q6H PRN (Reason: Asthma) Qty: 8.5 3RF paroxetine HCl 30 mg tablet 30 mg PO DAILY Qty: 90 1RF Referrals / Follow Up: Chris Montelongo MD [Primary Care Provider] - Disposition Disposition (needs filled in before D/C Order can be placed): Home, Self Care
[2024-02-01 07:19] LABS: Absolute Lymphocyte Count 0.93 X10^3/uL (0.83-4.51); Absolute Neutrophil Count 5.4 X10^3/uL (2.0-7.7); Basophil# 0.04 X10^3/uL; Basophil% 0.5 % (0-1); Eosinophil# 0.18 X10^3/uL; Eosinophils% 2.4 % (0-5); Hematocrit 31.2 % (37-47); Hemoglobin 9.9 g/dL (12.0-15.0); Lymphocyte # 0.93 X10^3/ul (0.83-4.51); Lymphocyte % 12.7 % (19-41); Mean Corp Hgb Conc 31.7 g/dL (32-36); Mean Corpuscular Hgb 31.9 pg (27.0-32.0); Mean Corpuscular Volume 100.6 fL (81-99); Mean Platelet Vol. 9.3 fl (6.2-12.0); Monocyte# 0.74 X10^3/uL; Monocyte% 10.1 % (0-10); NRBC Flagged by Analyzer 0 % (0-5); Neutrophil # 5.36 X10^3/uL (2.7-7.7); Neutrophil % 72.9 % (47-70); Platelet Count 283 K/mm3 (150-450); RBC Distribution Width CV 13.3 % (11.6-14.6); RBC Distribution Width SD 49.7 fl (35.1-43.9); White Blood Count 7.4 K/mm3 (4.4-11.0)
[2024-02-01 07:37] VITALS: O2SAT 95
[2024-02-01 07:46] LABS: Anion Gap 4 (5-15); BUN 8 mg/dL (7-18); BUN/Creat Ratio 9.7 RATIO (10-20); Calcium,Total 8.5 mg/dL (8.5-10.1); Chloride 112 mmol/L (98-107); Creatinine, Serum 0.82 mg/dL (0.55-1.02); EST Glomerular Filtration Rate 73 mL/min (>60); Est Glom Filt Rate - Afr Amer 88 mL/min (>60); Glucose 102 mg/dL (74-106); Potassium 3.8 mmol/L (3.5-5.1); Sodium Level 140 mmol/L (136-145)
[2024-02-01 08:23] VITALS: BP 139/65; PULSE 92; RESP 16; TEMP 37.1; O2SAT 97
[2024-02-01] MEDS: PARoxetine 10 MG Tablet 30 MG PO (08:44)
[2024-02-01] MEDS: Hydroxychloroquine 200 MG Tablet PO (08:44)
[2024-02-01] MEDS: hydroCHLOROthiazide 12.5mg 12.5 MG PO (08:45)
[2024-02-01] MEDS: Losartan Potassium 50 MG Tablet PO (08:45)
[2024-02-01] MEDS: Anastrozole 1 MG TABLET PO (08:45)
[2024-02-01] MEDS: Senna/Docusate Sodium 1 Tablet 2 TABLET PO (12:26)
[2024-02-01] MEDS: Polyethylene Glycol 3350 17 GM PACKET PO (12:27)
[2024-02-01] MEDS: oxyCODONE 5 MG Tablet PO (12:29)
[2024-02-01] MEDS: Acetaminophen 500 MG Tablet PO (12:29)
== END 2024-02-01 14:47 | disposition home or self-care (01) | DRG 418 ==
LOC: ED 19:47 → MS3 19:53
PROVIDERS: Physician Assistant; Surgery; Admitting Provider Surgery; Emergency Provider Emergency Medicine; PCP Internal Medicine; Visit Provider Surgery
PROC: 0FT44ZZ Resection of Gallbladder, Percutaneous Endoscopic Approach (ICD-10-PCS; CPT 47610; principal; 2024-01-29 15:45)
DX: K80.00 Calculus of gallbladder with acute cholecystitis without obstruction (principal); K82.1 Hydrops of gallbladder; C50.919 Malignant neoplasm of unspecified site of unspecified female breast; K82.A1 Gangrene of gallbladder in cholecystitis; N18.30 Chronic kidney disease, stage 3 unspecified; I12.9 Hypertensive chronic kidney disease with stage 1 through stage 4 chronic kidney disease, or unspecified chronic kidney disease; M79.7 Fibromyalgia; E78.5 Hyperlipidemia, unspecified; G47.33 Obstructive sleep apnea (adult) (pediatric); Z17.0 Estrogen receptor positive status [ER+]; Z79.52 Long term (current) use of systemic steroids; Z79.811 Long term (current) use of aromatase inhibitors; Z87.891 Personal history of nicotine dependence; Z90.49 Acquired absence of other specified parts of digestive tract; Z90.710 Acquired absence of both cervix and uterus
CPT/HCPCS: 36415; 74176; 74300; 76000; 76705; 80048; 80053; 80076; 81001; 83605; 83690; 84484; 85025; 88304; 93005; 94668; 99283; J7030; J7050; A4216; J2405

== ENCOUNTER → 2024-02-06 | Outpatient (CLI) | payer MEDICARE, BC, SELFPAY ==
[2024-02-06 12:05] LABS: ALB/GLOB Ratio 0.8 RATIO (0.9-2.4); AST(SGOT) 17 U/L (15-37); Alanine Aminotransfer ALT/SGPT 35 U/L (13-56); Alkaline Phosphatase 87 U/L (45-117); Anion Gap 7 (5-15); BUN 11 mg/dL (7-18); Calcium,Total 9.3 mg/dL (8.5-10.1); Chloride 107 mmol/L (98-107); EST Glomerular Filtration Rate 59 mL/min (>60); Est Glom Filt Rate - Afr Amer 71 mL/min (>60); Globulin 3.6 g/dL (2.2-4.2); Glucose 104 mg/dL (74-106); Potassium 3.6 mmol/L (3.5-5.1); Protein, Total 6.6 g/dL (6.4-8.2); Sodium Level 138 mmol/L (136-145)
== END | disposition home or self-care (01) ==
LOC: LAB 10:23
PROVIDERS: PCP Internal Medicine; Referring Provider Internal Medicine Rheumatology; Visit Provider Internal Medicine Rheumatology
DX: M06.4 Inflammatory polyarthropathy (principal); M79.7 Fibromyalgia; Z79.899 Other long term (current) drug therapy
CPT/HCPCS: 36415; 80053

== ENCOUNTER → 2024-02-25 | Outpatient (CLI) | payer MEDICARE, BC, SELFPAY ==
--- NOTE | 2024-02-25 11:15 | RAD_ITS ---
EXAM: XR CHEST, 2 VIEWS CLINICAL INDICATION: Cough, Congestion TECHNIQUE: Frontal and lateral views of the chest. COMPARISON: 08/24/2020. FINDINGS: LUNGS AND PLEURAL SPACES: Unremarkable. No suspicious infiltrates, consolidation or edema. No pleural effusion. No pneumothorax. HEART: Unremarkable. Cardiac silhouette not enlarged. MEDIASTINUM: Central airways and mediastinal contour are unremarkable. BONES/JOINTS: Unremarkable. No acute fracture. SOFT TISSUES: Surgical clips in the left axilla and left chest from prior mastectomy. RAD/Chest PA and Lateral IMPRESSION: No acute findings in the chest and unchanged. Electronically Signed: Hira Dunlap MD at 11:43 EDT ,
[2024-02-25 12:10] LABS: Absolute Lymphocyte Count 1.95 X10^3/uL (0.83-4.51); Absolute Neutrophil Count 8.6 X10^3/uL (2.0-7.7); Basophil# 0.08 X10^3/uL; Basophil% 0.7 % (0-1); Eosinophil# 0.27 X10^3/uL; Eosinophils% 2.2 % (0-5); Hemoglobin 12.7 g/dL (12.0-15.0); Lymphocyte # 1.95 X10^3/ul (0.83-4.51); Lymphocyte % 15.9 % (19-41); Mean Corp Hgb Conc 31.8 g/dL (32-36); Mean Corpuscular Hgb 31.6 pg (27.0-32.0); Mean Corpuscular Volume 99.5 fL (81-99); Mean Platelet Vol. 9.5 fl (6.2-12.0); Monocyte# 0.87 X10^3/uL; Monocyte% 7.1 % (0-10); NRBC Flagged by Analyzer 0 % (0-5); Neutrophil # 8.59 X10^3/uL (2.7-7.7); Neutrophil % 69.9 % (47-70); Platelet Count 451 K/mm3 (150-450); RBC Distribution Width CV 13.1 % (11.6-14.6); Red Blood Count 4.02 M/mm3 (4.2-5.4); White Blood Count 12.3 K/mm3 (4.4-11.0)
[2024-02-25 12:26] LABS: D-Dimer Quantitative (DVT/PE) 0.65 FEU/ug/m (0.27-0.49)
[2024-02-25 12:38] LABS: AST(SGOT) 12 U/L (15-37); Alanine Aminotransfer ALT/SGPT 21 U/L (13-56); Albumin, Serum 3.5 g/dL (3.2-5.0); Alkaline Phosphatase 73 U/L (45-117); Anion Gap 6 (5-15); BUN 13 mg/dL (7-18); BUN/Creat Ratio 11.4 RATIO (10-20); Calcium,Total 9.2 mg/dL (8.5-10.1); Chloride 109 mmol/L (98-107); Creatinine, Serum 1.14 mg/dL (0.55-1.02); EST Glomerular Filtration Rate 50 mL/min (>60); Est Glom Filt Rate - Afr Amer 61 mL/min (>60); Globulin 3.4 g/dL (2.2-4.2); Glucose 108 mg/dL (74-106); Potassium 3.6 mmol/L (3.5-5.1); Protein, Total 6.9 g/dL (6.4-8.2); Sodium Level 141 mmol/L (136-145)
== END | disposition home or self-care (01) ==
PROVIDERS: PCP Internal Medicine; Referring Provider Internal Medicine; Visit Provider Internal Medicine
DX: I10 Essential (primary) hypertension (principal); E78.5 Hyperlipidemia, unspecified; R05.9 Cough, unspecified; R00.0 Tachycardia, unspecified
CPT/HCPCS: 36415; 71046; 80053; 85025; 85379

== ENCOUNTER → 2024-02-26 | Outpatient (CLI) | payer MEDICARE, BC, SELFPAY ==
--- NOTE | 2024-02-26 12:57 | CT_ITS ---
STUDY: CTA CHEST REASON FOR EXAM: Female, 68 years old. Elevated D-dimer RADIATION DOSAGE (If Supplied By Facility): CTDIvol = ( 11.18 ) mGy, DLP = ( 378.93 ) mGycm TECHNIQUE: The examination was performed with the intravenous administration of IV 100mL Isovue-370. Post-processing of the angiographic images was performed, with multiplanar reformation and 3D reconstruction. Individualized dose optimization techniques were used for this CT. COMPARISON: Comparison is made with prior study dated November 25, 2023. FINDINGS: Normal enhancement of the main pulmonary artery and right and left pulmonary arteries. Normal enhancement of the bilateral peripheral pulmonary arteries. There is no demonstrated pulmonary embolism. There is atherosclerotic calcification of the aortic arch with tortuosity. There is no demonstrated aortic dissection. Normal heart and pericardium. Normal mediastinum. Normal hilar regions. Normal visualized trachea and bronchi. The lungs are well expanded. Stable minimal scarring in the posterior aspect of the lingular segment of the left upper lobe as well as in the right lower lobe. Normal pleura. Normal chest wall structures. There are degenerative changes of thoracic spine. There is no 0.4 mm hypodense nodule in the inferior aspect of the right lobe of the liver suggestive of a small hepatic cyst. The patient is status post cholecystectomy. CT/CTA Chest W/WO Contrast IMPRESSION: No evidence of pulmonary embolism. Mild scarring as described. Electronically Signed: Imer Gutierrez MD at 14:14 EDT ,
== END | disposition home or self-care (01) ==
LOC: CT 12:57
PROVIDERS: PCP Internal Medicine; Referring Provider Internal Medicine; Visit Provider Internal Medicine
DX: R05.9 Cough, unspecified (principal); R00.0 Tachycardia, unspecified; R79.89 Other specified abnormal findings of blood chemistry
CPT/HCPCS: 71275; Q9967

== ENCOUNTER 2024-03-28 14:42 | Emergency (ER) | payer MEDICARE, BC, SELFPAY ==
[2024-03-28 14:42] VITALS: BP 167/84; PULSE 69; RESP 16; TEMP 36.6; O2SAT 95; BMI 32.8
--- NOTE | 2024-03-28 14:58 | EDS_ITS ---
HPI History of Present Illness Chief Complaint: Bite Detail of Chief Complaint: Dog bite with laceration dorsal surface left hand Informant: patient Onset/Context/Timing Onset: Yesterday (1800) Mechanism/Context: other (Dog bite) Location of pain/injuries: Left hand Quality of Pain: Dull Location: Hand Current Severity: Gone Maximum Severity: Mild Worsened by: Palpation and use of hand Associated Symptoms Associated Symptoms: Negative for Parasthesias, Weakness or Loss of function Narrative Narrative: Patient is a 68-year-old cawoj-jyag-mxdojufq woman. She presents with dog bite to her left hand. The dog is a rescued dog. Dog's vaccines up-to-date. She has not had a tetanus in some time. The bite occurred yesterday at 1800. She denies paresthesia, anesthesia or motor weakness. She states she is able to move her fingers without pain. She is on no anticoagulant or antithrombotic. She is on Plaquenil. (See history of rheumatoid arthritis and fibromyalgia) Tetanus Immunization: >10 years Prior similar symptoms: No Recent Illness/Hospitalization: No PFSH PFSH Medical History Elevated d-dimer Tachycardia Cough Insomnia History of breast cancer Dense breast tissue Screening for breast cancer Palpitation Breast pain, right Gastritis Ear ache Dermatitis Diarrhea Lumbar radiculopathy Left shoulder pain Microscopic colitis Colitis Diverticulitis Dry skin dermatitis Obstructive sleep apnea Chronic diarrhea Sleep apnea Hypersomnolence Dense breast tissue on mammogram Screening for thyroid disorder History of tobacco use Encounter for screening for malignant neoplasm of lung BCC (basal cell carcinoma), back Migraine Pain, eye, left ER+ (estrogen receptor positive status) Seasonal allergies Fibromyalgia Personal history of colon cancer Osteoporosis Cancer of left female breast Colon cancer Colon polyps Obesity Hyperlipidemia Asthma Anemia Vitamin D deficiency Herpes labialis Rheumatoid arthritis CKD (chronic kidney disease) History of pulmonary embolus (PE) Essential hypertension Chronic pain Anxiety Home Medications ?Medication ?Instructions ?Recorded ?Last Taken ?Type denosumab 60 mg/mL subcutaneous 60 mg subcut [id number] #1 mL 06/05/21 Unknown Rx syringe (Prolia) valacyclovir 1 gram tablet 1,000 mg PO DAILY PRN Outbreak 11/15/21 Unknown History (Valtrex) prednisone 10 mg tablet 10 mg PO DAILY PRN poly flair 07/02/23 Unknown History anastrozole 1 mg tablet 1 mg PO DAILY #90 tabs 09/18/23 Unknown Rx epinephrine 0.3 mg/0.3 mL 0.3 mg (0.3 mL) IM Q5-15M PRN 09/18/23 Unknown Rx injection, auto-injector (EpiPen anaphylaxis #4 ea 2-Federico) hydroxychloroquine 200 mg tablet 200 mg PO BID 11/24/23 Unknown History (Plaquenil) trazodone 100 mg tablet 100 mg PO QHS Sleep 11/24/23 Unknown History albuterol sulfate 90 mcg/actuation 2 puff inhalation Q6H PRN Asthma 12/25/23 Unknown Rx aerosol inhaler #8.5 grams paroxetine HCl 30 mg tablet 30 mg PO DAILY #90 tabs 12/25/23 Unknown Rx benzonatate 100 mg capsule 200 mg (2 x 100 mg) PO TID PRN 02/19/24 Unknown Rx cough #30 caps amoxicillin 875 mg-potassium 1 tab PO BID #20 tabs 02/25/24 Unknown Rx clavulanate 125 mg tablet olmesartan 20 See Rx Instructions .Route 02/25/24 Unknown Rx mg-hydrochlorothiazide 12.5 mg .COMPLEX #90 tabs tablet propranolol 80 mg capsule,24 80 mg PO QHS #90 caps 02/25/24 Unknown Rx hr,extended release fluticasone fur. 100 mcg-umeclid 1 inh inhalation Q24H #60 ea 03/01/24 Unknown Rx 62.5 mcg-vilant 25 mcg inhalat.powder (Trelegy Ellipta) amoxicillin 875 mg-potassium 875 mg PO Q12H #8 TABLETS 03/28/24 Unknown Rx clavulanate 125 mg tablet Allergy/AdvReac Type Severity Reaction Status Date / Time Iodinated Contrast Media AdvReac Severe Hives Verified 03/28/24 14:46 (CONTRASTS) latex AdvReac Severe Rash Verified 03/28/24 14:46 morphine AdvReac Other Verified 03/28/24 14:46 Family History Brother CAD (coronary artery disease) CABG Myocardial infarction, Onset Age: 40 Grandmother Breast cancer paternal Aunt Breast cancer maternal Lung cancer paternal Sister Rheumatoid arthritis Mayes esophagus Colon polyps Monoclonal gammopathy Father Lung cancer Uncle Lung cancer paternal Mother Vascular dementia Alzheimers disease Other Anxiety and depression Cancer Hyperlipemia Hypertension Osteoporosis Surgical History S/P laparoscopic cholecystectomy History of colonoscopy History of rotator cuff surgery History of tooth extraction History of left mastectomy History of colonoscopy with polypectomy History of left breast biopsy (04/2020) History of left heart catheterization (05/16/06) History of hysterectomy History of appendectomy Social History Smoking Status: Former smoker quit date: 04/28/05 pack-years: 30 Tobacco: How many years used: 30 how long ago did patient quit smokin years quit status: quit date established alcohol intake: current substance use type: does not use what type of physical activity do you participate in: walking and weight training ROS ROS ED Constitutional Constitutional ED: Denies chills, fever(s), subjective or sweats Respiratory/Chest Respiratory/Chest: Denies dyspnea Gastrointestinal Gastrointestinal: Denies nausea or vomiting Integumentary Reports other Details: Flap dorsum left hand ; Denies abscess or rash Neurologic Neurologic: Denies paresthesias Hematologic/Lymphatic Hematologic/Lymphatic: Denies easy bleeding or easy bruising EXAM Physical Exam Const Vital Signs: 03/28/24 14:42 Temperature 97.8 F Temperature Source Oral Pulse Rate 69 Respiratory Rate 16 Blood Pressure 167/84 H Blood Pressure Mean 111 Pulse Ox 95 Oxygen Delivery Method Room Air Positive well nourished and well developed General Appearance ED: well developed and NAD HEENT HEENT Narrative: Head is normocephalic. atraumatic Eyes PERRL and EOMs intact bilaterally Resp normal respiratory effort Cardio regular rhythm Rate: regular rate Extremity full ROM; Negative for normal to inspection Extremity Narrative: Patient has a flap-like laceration with the corner radial proximal dorsal side left hand. The extensor commonness tendon is visible. Passive range of motion reveals a small presumed bite kevon since there is a divot in the dorsal side of the extensor tendon. The tendon is intact. There is no pain with passive range of motion. There is no purulent discharge. Median, radial and ulnar function intact. Sensation is normal. Capillary refill is normal. There is a 3 to 4 mm superficial injury dorsal surface left hand on the ulnar side of the MCP joint left ring finger. There is no evidence infection. The extensor mechanism is functionally intact. Neuro oriented x3 and CN's II-XII intact bilaterally Sensorium / Orientation: alert Skin Skin Narrative: Laceration/bite kevon dorsum left hand PROC Procedures Other Procedures Procedure(s): The laceration is 3 cm in length. The laceration was excised with 1% lidocaine for local filtration. Wound was irrigated 200 cc of normal saline. One stitch was placed to cover the exposed tendon. She received her first dose of Augmentin in the department. She was referred to hand. MDM MDM MDM Narrative Medical decision making narrative: With no tenderness over the second, third fourth metacarpal on the volar surface and no discomfort with axial loading of the index long and ring finger in my opinion imaging is not needed. There is evidence of injury to the tendon. Will place on Augmentin. Since the tendon is exposed 1 stitch was placed at the corner to cover the area. She was referred to plastic/hand Dr. Carlos Rowe. Tetanus was updated. She is on immunosuppressive meds due to rheumatoid arthritis. Discharge Plan Triage Chief Complaint: Bite ED Provider: Jonnie Denson Dx/Rx/DC Orders Clinical Impression: Dog bite of multiple sites of left hand and fingers, Rheumatoid arthritis, Laceration of left hand involving extensor tendon Instructions: ED Animal Bite (General) Prescriptions: New amoxicillin-pot clavulanate 875-125 mg tablet 875 mg PO Q12H Qty: 8 0RF No Action Prolia 60 mg/mL syringe 60 mg subcut [id number] Qty: 1 1RF valacyclovir [Valtrex] 1 gram tablet 1,000 mg PO DAILY PRN (Reason: Outbreak) prednisone 10 mg tablet 10 mg PO DAILY PRN (Reason: poly flair) Patient Comments: take 1 tablet by mouth once daily TAKE FOR 1-5 DAYS WITH FLARE trazodone 100 mg tablet 100 mg PO QHS hydroxychloroquine [Plaquenil] 200 mg tablet 200 mg PO BID amoxicillin-pot clavulanate 875-125 mg tablet 1 tab PO BID Qty: 20 0RF olmesartan-hydrochlorothiazide 20-12.5 mg tablet See Rx Instructions .ROUTE .COMPLEX Qty: 90 3RF Dose Instruction: take 1 tablet by mouth once daily Rx Instructions: take 1 tablet by mouth once daily propranolol 80 mg capsule,extended release 24 hr 80 mg PO QHS Qty: 90 3RF benzonatate 100 mg capsule 200 mg PO TID PRN (Reason: cough) Qty: 30 0RF epinephrine [EpiPen 2-Federico] 0.3 mg/0.3 mL auto-injector 0.3 mg IM Q5-15M PRN (Reason: anaphylaxis) Qty: 4 3RF Rx Instructions: do not exceed 3 doses per episode anastrozole 1 mg tablet 1 mg PO DAILY Qty: 90 3RF albuterol sulfate 90 mcg/actuation HFA aerosol inhaler 2 puff INHALATION Q6H PRN (Reason: Asthma) Qty: 8.5 3RF paroxetine HCl 30 mg tablet 30 mg PO DAILY Qty: 90 1RF Trelegy Ellipta 100-62.5-25 mcg blister with device 1 inh inhalation Q24H Qty: 60 1RF Primary Care Provider: Chris Montelongo Referrals: Chris Montelongo MD [Primary Care Provider] - Carlos Rowe MD [Med Staff - Active Staff] - 2 Days for wound check Activity Restrictions/Additional Instructions: Call Dr. Rowe's office tomorrow. Let staff know you were seen in the emergency department. You need follow-up for a dog bite left hand with involvement of your extensor tendon. Print Language: Vietnamese Disposition Disposition: Home, Self Care
[2024-03-28] MEDS: Diphth,Pertuss(Acell),Tet Vac 0.5 ML Vial IM (15:07)
[2024-03-28] MEDS: Lidocaine 1% (20 ml mdv) 20 ML Vial INFILT (15:07)
[2024-03-28] MEDS: Amox/Clavulanate 875 MG Tablet PO (15:07)
== END 2024-03-28 15:50 | disposition home or self-care (01) ==
PROVIDERS: Emergency Provider Emergency Medicine; PCP Internal Medicine; Referring Provider Emergency Medicine; Visit Provider Emergency Medicine
DX: S61.452A Open bite of left hand, initial encounter (principal); M06.9 Rheumatoid arthritis, unspecified; S61.412A Laceration without foreign body of left hand, initial encounter; E78.5 Hyperlipidemia, unspecified; W54.0XXA Bitten by dog, initial encounter; Z87.891 Personal history of nicotine dependence; I12.9 Hypertensive chronic kidney disease with stage 1 through stage 4 chronic kidney disease, or unspecified chronic kidney disease; N18.9 Chronic kidney disease, unspecified; Z79.899 Other long term (current) drug therapy; Z23 Encounter for immunization
CPT/HCPCS: 12002; 90471; 90715; 99284

== ENCOUNTER → 2024-04-01 | Outpatient (CLI) | payer MEDICARE, BC, SELFPAY ==
[2024-04-01 12:47] LABS: Absolute Lymphocyte Count 2.06 X10^3/uL (0.83-4.51); Absolute Neutrophil Count 6.4 X10^3/uL (2.0-7.7); Basophil# 0.06 X10^3/uL; Basophil% 0.6 % (0-1); Eosinophil# 0.16 X10^3/uL; Eosinophils% 1.7 % (0-5); Hematocrit 36.7 % (37-47); Hemoglobin 11.4 g/dL (12.0-15.0); Lymphocyte # 2.06 X10^3/ul (0.83-4.51); Lymphocyte % 21.3 % (19-41); Mean Corp Hgb Conc 31.1 g/dL (32-36); Mean Corpuscular Hgb 31.2 pg (27.0-32.0); Mean Corpuscular Volume 100.5 fL (81-99); Mean Platelet Vol. 9.7 fl (6.2-12.0); Monocyte% 8.3 % (0-10); NRBC Flagged by Analyzer 0 % (0-5); Neutrophil # 6.41 X10^3/uL (2.7-7.7); Neutrophil % 66.4 % (47-70); Platelet Count 371 K/mm3 (150-450); RBC Distribution Width CV 13.2 % (11.6-14.6); RBC Distribution Width SD 48.5 fl (35.1-43.9); Red Blood Count 3.65 M/mm3 (4.2-5.4); White Blood Count 9.7 K/mm3 (4.4-11.0)
[2024-04-01 13:24] LABS: ALB/GLOB Ratio 1.2 RATIO (0.9-2.4); AST(SGOT) 16 U/L (15-37); Alanine Aminotransfer ALT/SGPT 21 U/L (13-56); Albumin, Serum 3.4 g/dL (3.2-5.0); Alkaline Phosphatase 51 U/L (45-117); Anion Gap 2 (5-15); BUN 17 mg/dL (7-18); BUN/Creat Ratio 15.2 RATIO (10-20); Calcium,Total 9.1 mg/dL (8.5-10.1); Chloride 108 mmol/L (98-107); Creatinine, Serum 1.12 mg/dL (0.55-1.02); EST Glomerular Filtration Rate 51 mL/min (>60); Est Glom Filt Rate - Afr Amer 62 mL/min (>60); Globulin 2.9 g/dL (2.2-4.2); Glucose 89 mg/dL (74-106); Potassium 3.3 mmol/L (3.5-5.1); Protein, Total 6.3 g/dL (6.4-8.2); Sodium Level 141 mmol/L (136-145)
== END | disposition home or self-care (01) ==
LOC: LAB 11:08
PROVIDERS: PCP Internal Medicine; Referring Provider Internal Medicine Rheumatology; Visit Provider Internal Medicine Rheumatology
DX: M06.4 Inflammatory polyarthropathy (principal); M79.7 Fibromyalgia; M19.041 Primary osteoarthritis, right hand; Z79.899 Other long term (current) drug therapy
CPT/HCPCS: 36415; 80053; 85025

== ENCOUNTER → 2024-05-05 | Outpatient (CLI) | payer MEDICARE, BC, SELFPAY ==
[2024-05-05 15:35] LABS: Anion Gap 6 (5-15); BUN 17 mg/dL (7-18); BUN/Creat Ratio 14.5 RATIO (10-20); Chloride 106 mmol/L (98-107); Creatinine, Serum 1.17 mg/dL (0.55-1.02); EST Glomerular Filtration Rate 49 mL/min (>60); Est Glom Filt Rate - Afr Amer 59 mL/min (>60); Glucose 92 mg/dL (74-106); Potassium 3.7 mmol/L (3.5-5.1); Sodium Level 142 mmol/L (136-145); T4 Free Direct 1.14 ng/dL (0.76-1.46)
[2024-05-05 17:04] LABS: Hemoglobin A1c 5.5 % (3.8-5.6)
[2024-05-05 17:30] LABS: Vitamin D,25 Hydroxy 26.8 ng/mL
== END | disposition home or self-care (01) ==
LOC: BIMLAB 11:35
PROVIDERS: PCP Internal Medicine; Referring Provider Internal Medicine; Visit Provider Internal Medicine
DX: I10 Essential (primary) hypertension (principal); E78.5 Hyperlipidemia, unspecified; R73.9 Hyperglycemia, unspecified; M81.0 Age-related osteoporosis without current pathological fracture
CPT/HCPCS: 36415; 80048; 82306; 83036; 84439; 84443

== ENCOUNTER → 2024-05-10 | Outpatient (CLI) | payer MEDICARE, BC, SELFPAY ==
--- NOTE | 2024-05-10 13:12 | ECHOD_ITS ---
Reason For Study: CHEMOTHERAPY Procedure This was a 2D Doppler, Color Flow transthoracic echocardiogram. Myocardial strain analysis was performed in this exam to aid in the assessment of cardiac function. Exam performed in department. Left Ventricle Normal LV size. The global longitudinal strain = -19.5 % (normal). The left ventricular ejection fraction is 55 %. No regional wall motion abnormalities noted. Right Ventricle Normal RV size. Normal systolic function. Atria Normal left atrium. Normal right atrium. Mitral Valve Normal mitral valve. Trivial eccentric mitral valve insufficiency. Tricuspid Valve Normal tricuspid valve. Mild tricuspid valve insufficiency. Pulmonary artery systolic pressure is 22 mmHg. Aortic Valve Trisinus/trileaflet aortic valve. Pulmonic Valve Normal pulmonic valve. Great Vessels Normal aortic root. The pulmonary artery is normal size. Inferior vena cava collapse with respiration. Pericardium/Pleural No pericardial effusion. MMode/2D Measurements & Calculations LVIDd: 4.4 cm IVSd: 0.93 cm LVOT diam: 2.0 cm LVIDs: 2.3 cm LVPWd: 1.0 cm LVOT area: 3.0 cm2 RVDd: 3.7 cm FS: 49.2 % asc Aorta Diam: 3.8 cm LAV(MOD-bp): 47.8 ml LVAd ap4: 24.4 cm2 LAV(MOD-bp) Indexed: 24.6 ml/m2 LVLd ap4: 7.0 cm LAV(MOD-sp2): 54.8 ml EDV(MOD-sp4): 69.6 ml LAV(MOD-sp4): 41.9 ml EDV(sp4-el): 72.1 ml LVAs ap4: 14.7 cm2 LVLs ap4: 5.8 cm ESV(MOD-sp4): 31.5 ml ESV(sp4-el): 31.7 ml EF(MOD-sp4): 54.7 % EF(sp4-el): 56.1 % LVAd ap2: 22.8 cm2 SV(MOD-sp4): 38.1 ml SV(MOD-sp2): 39.7 ml LVLd ap2: 7.0 cm SI(MOD-sp4): 19.6 ml/m2 SI(MOD-sp2): 20.4 ml/m2 EDV(MOD-sp2): 61.2 ml EDV(sp2-el): 62.8 ml LVAs ap2: 12.4 cm2 LVLs ap2: 6.1 cm ESV(MOD-sp2): 21.5 ml ESV(sp2-el): 21.5 ml EF(MOD-sp2): 64.9 % SV(sp4-el): 40.4 ml Ao sinus diam: 3.[address] Junction: 2.9 cm LA dimension(2D): 4.1 cm LA A4 area: 16.3 cm2 RA A4 area: 13.6 cm2 TAPSE: 1.8 cm Time Measurements MV dec time: 0.20 sec Doppler Measurements & Calculations MV E max rosalio: 62.6 cm/sec Lat Peak E' Rosalio: 7.3 cm/sec Med Peak E' Rosalio: 7.3 cm/sec MV A max rosalio: 81.5 cm/sec E/E' lat: 8.6 E/E' med: 8.6 MV E/A: 0.77 MV dec slope: 316.5 cm/sec2 Ao V2 max: 135.7 cm/sec LV V1 max: 132.3 cm/sec Ao max P.4 mmHg LV V1 max P.0 mmHg Ao V2 mean: 93.0 cm/sec LV V1 mean P.5 mmHg Ao mean P.9 mmHg LV V1 mean: 85.5 cm/sec Ao V2 VTI: 28.9 cm LV V1 VTI: 33.2 cm AV (velocity ratio): 1.1 ADAM(I,D): 3.5 cm2 ADAM(V,D): 2.9 cm2 SV(LVOT): 99.9 ml PA V2 max: 98.1 cm/sec TR max rosalio: 214.0 cm/sec TR max P.3 mmHg ECHO/Echo Complete Interpretation Summary Normal LV size. The global longitudinal strain = -19.5 % (normal). The left ventricular ejection fraction is 55 %. Mild tricuspid valve insufficiency. Pulmonary artery systolic pressure is 22 mmHg. Ordering Physician: Scott Smith Referring Physician: Chris Montelongo Performed By: Maryan Encinas RDCS
== END | disposition home or self-care (01) ==
LOC: CVS 13:11
PROVIDERS: PCP Internal Medicine; Referring Provider Internal Medicine Cardiovascular Disease; Visit Provider Internal Medicine Cardiovascular Disease
DX: R94.31 Abnormal electrocardiogram [ECG] [EKG] (principal); I10 Essential (primary) hypertension

== ENCOUNTER → 2024-05-24 | Outpatient (CLI) | payer MEDICARE, BC, SELFPAY | END | disposition home or self-care (01) | LOC: SL 20:49 | PROVIDERS: PCP Internal Medicine; Referring Provider Internal Medicine; Visit Provider Internal Medicine | DX: G47.33 Obstructive sleep apnea (adult) (pediatric) (principal); G47.10 Hypersomnia, unspecified | CPT/HCPCS: 95811 ==

== ENCOUNTER → 2024-06-01 | Outpatient (CLI) | payer MEDICARE, BC, SELFPAY ==
--- NOTE | 2024-06-01 13:53 | BI_ITS ---
PROCEDURE: SCREEN MAMM (CAD) W/BHAVIK UNI R REASON FOR EXAM: F, Age 68 y/o, presents for annual screening mammogram. The patient has history of left breast cancer status post mastectomy in 05/2020 with anastrozole x3 years. Family history of breast cancer in paternal grandmother and maternal aunt. TECHNIQUE: Unilateral right screening digital breast tomosynthesis with 2D and 3D images. Computer aided detection. COMPARISON: No priors available. FINDINGS: There are scattered areas of fibroglandular density. No suspicious masses, areas of developing architectural distortion, or suspicious calcifications. BI/SCREEN MAMM (CAD) W/BHAVIK UNI R IMPRESSION: There is no mammographic evidence of malignancy in the right breast. BI-RADS 1: NEGATIVE. RECOMMEND ANNUAL MAMMOGRAPHIC SCREENING. Follow-up code: Routine Follow-up.. The patient will be notified of the results by letter. Reading Location: [id number]
== END | disposition home or self-care (01) ==
LOC: OPBI 13:52
PROVIDERS: PCP Internal Medicine; Referring Provider Internal Medicine Hematology & Oncology; Visit Provider Internal Medicine Hematology & Oncology
DX: Z12.31 Encounter for screening mammogram for malignant neoplasm of breast (principal); Z85.3 Personal history of malignant neoplasm of breast
CPT/HCPCS: 77063; 77067

== ENCOUNTER → 2024-06-01 | Outpatient (CLI) | payer MEDICARE, BC, SELFPAY ==
--- NOTE | 2024-06-01 13:08 | CT_ITS ---
PROCEDURE: LOW DOSE CT LUNG SCREENING REASON FOR EXAM: Patient has smoked half a pack per day for 10 years. Patient quit 15 years ago. TECHNIQUE: Low Dose CT Lung Screening without contrast COMPARISON: Comparison is made with prior study dated February 26, 2024. FINDINGS: PULMONARY NODULES: (Only nodules >6mm are reported). Calcified granuloma in the right upper lobe. Nodules described below are on series unless otherwise specified. Pulmonary Nodules: No concerning pulmonary nodules. Hardware:None Lymph Nodes:No mediastinal hilar or axillary lymphadenopathy. Heart and Vasculature:Normal heart size. No pericardial effusion.Thoracic aorta and pulmonary arteries have normal contours; noncontrast technique limits evaluation. Atherosclerotic plaque formation of the aortic arch and descending thoracic aorta. Coronary Artery Calcifications: Present Lungs and Airways: Mild degree of hyperinflation. Mild emphysematous changes. Mild linear scarring at the left lung base. Pleura:No pleural effusion. No pneumothorax. Upper Abdomen:Status post cholecystectomy. Bones:Degenerative changes of the thoracic spine. CT/Low Dose CT Lung Screening IMPRESSION: 1. BASED ON THE ACR LUNG RADS FOR THE MOST SUSPICIOUS NODULE (IF ANY) DESCRIBE D IN THIS REPORT, THE OVERALL LUNG RADS SCORE IS 1. 1 - NEGATIVE. RECOMMEND 12-MONTH SCREENING LDCT.. 2. SMOKING CESSATION COUNSELING IS RECOMMENDED IF THE PATIENT IS STILL SMOKING . 3. OTHER SIGNIFICANT FINDINGSNone. One or more dose reduction techniques were used (e.g., Automated exposure contr ol, adjustment of the mA and/or kV according to patient size, use of iterative reconstruction technique). The following information is provided for reference:Lung-RADS 2021 Assessment C ategories. Additional information involving Lung-RADS is available at www.acr.org. 0-INCOMPLETE 1-NEGATIVE:No nodules or definitely benign nodules. Complete, central, popcorn , or centric ring calcifications OR fat containing 2-BENIGN APPEARANCE (based on imaging features or indolent behavior). Juxtaple ural nodule: < 10mm AND solid; smooth margins; oval, entiform, or triangular shape Solid nodule: <6mm at baseline or new< 4mm Part solid Nodule: < 6mm total mean diameter at baseline Nonsolid nodule:(GGN) < 30mm OR >=30mm stable or slowly growing Airway nodule, subsegmental at baseline, new, or stable Category 3 nodule stabl e or decreased in size at 6-month follow-up CT or Category 3 or 4A nodules that resolve on follow-up OR category 4B findings prov en to be benign following diagnotic work up. 3 - Probably Benign (Based on imaging features or behavior) Solid Nodule: >= 6 to <8mm at baseline OR new 4 to <6mm Part-solid nodule: >= 6mm toal mean diam. with solid component <6mm at baseline OR new < 6mm total mean diam. Non-solid nodule: GGN >= 30mm at baseline or new Atypical pulmonary cyst: Growing cystic component (mean diam.) of thick-walled cyst Category 4A nodule stable or decreased in size at 3-month follow-up CT (excl.ai rway). 4A - Suspicious Solid nodule: >=8 to < 15mm at baseline OR growing < 8mm OR new 6 to < 8mm Part solid nodule: >= 6mm total mean diam. w/ solid component >=6mm to < 8mm at baseline OR new or growing < 4mm solid component Airway nodule, segmental or more proximal at baseline or new Atypical pulmonary cyst: Thick-walled OR multilocular at baseline OR becomes mu ltilocular 4B - Very Suspicious Airway nodule, segmental or more proximal, and stable or growing Solid nodule: >= 15mm at baseline OR new or growing >= 8mm Part solid nodule: Solid component >= 8mm OR new or growing >= 4mm solid compon ent Atypical pulmonary cyst: Thick-walled with growing wall thickness/nodularity OR Growing multilocular (mean diam.) OR Multilocular with increased loculation or new/increased opacity Slow-growing solid or part solid nodule w/ growth over multiple screening exams 4X - Very Suspicious Category 3 or 4 nodules with additional features that increase the suspicion fo r lung cancer. S - Clinically Significant or potentially significant findings (non-lung cancer ) Reading Location: [place] [id number]
== END | disposition home or self-care (01) ==
LOC: CT 13:08
PROVIDERS: PCP Internal Medicine; Referring Provider Nurse Practitioner Family; Visit Provider Nurse Practitioner Family
DX: Z12.2 Encounter for screening for malignant neoplasm of respiratory organs (principal); Z87.891 Personal history of nicotine dependence
CPT/HCPCS: 71271

== ENCOUNTER → 2024-07-01 | Outpatient (CLI) | payer MEDICARE, BC, SELFPAY ==
--- NOTE | 2024-07-01 15:34 | MRI_ITS ---
EXAM: MRI brain with and without contrast. CLINICAL HISTORY: 3 MO H/O DAILY HEADACHES COMPARISON: 01/03/2023. Only the images are available for review; the report is not available for review at the time of dictation. TECHNIQUE: Multisequence multiplanar MRI brain was performed with and without intravenous contrast. Contrast: 19 mL Clariscan FINDINGS: Cerebrum: Very mild supratentorial white matter abnormalities, nonspecific but similar to prior and compatible with chronic microvascular ischemic changes. No acute infarct, appreciable intracranial hemorrhage, mass, or mass effect. Midline structures unremarkable. Cerebellum: Unremarkable. No evidence of cerebellar tonsillar herniation. Brainstem: Unremarkable. Ventricles/extra-axial spaces: Unremarkable. No hydrocephalus. Major flow voids: Grossly unremarkable within limits of technique. Paranasal sinuses: Trace to mild anterior ethmoid air cell mucosal thickening. Scalp/calvarium: Unremarkable. Orbits: Cataract surgery. Other: No abnormal enhancement. MRI/Brain W/WO Contrast IMPRESSION: 1. No acute abnormality or findings which might explain the patient's symptoms. 2. Trace to mild anterior ethmoid paranasal sinus disease. 3. Additional description as above. Reading Location: [id number]
== END | disposition home or self-care (01) ==
LOC: MRI 15:28
PROVIDERS: PCP Internal Medicine; Referring Provider Internal Medicine Hematology & Oncology; Visit Provider Internal Medicine Hematology & Oncology
DX: R51.9 Headache, unspecified (principal)
CPT/HCPCS: 70553; A9575

== ENCOUNTER → 2024-07-05 | Outpatient (CLI) | payer MEDICARE, BC, SELFPAY ==
[2024-07-05 11:05] LABS: Bacteria 0 SEEN /hpf (None Seen); Mucous, Urine 0 SEEN /hpf (<or=2+)
[2024-07-05 11:30] LABS: Color, Urine Yellow (Yellow); Glucose, Dipstick Normal (Normal); Ketone-Dipstick Negative (Negative); Leukocyte Esterase-Dipstick 25 /ul (Negative); Nitrite-Dipstick Negative (Negative); Occult Blood-Urine 10 /ul (Negative); Protein-Dipstick 15 mg/dl (Negative); Urine Bilirubin Dipstick Negative (Negative); Urine Clarity Clear (Clear); Urine Urobilinogen Normal (Normal); Urine pH 6.5 (5.0 - 8.0)
[2024-07-05 11:35] LABS: Absolute Lymphocyte Count 1.36 X10^3/uL (0.83-4.51); Absolute Neutrophil Count 6.2 X10^3/uL (2.0-7.7); Basophil# 0.03 X10^3/uL; Basophil% 0.4 % (0-1); Eosinophil# 0.14 X10^3/uL; Eosinophils% 1.7 % (0-5); Hematocrit 36.3 % (37-47); Lymphocyte # 1.36 X10^3/ul (0.83-4.51); Lymphocyte % 16.3 % (19-41); Mean Corp Hgb Conc 33.1 g/dL (32-36); Mean Corpuscular Hgb 32.2 pg (27.0-32.0); Mean Corpuscular Volume 97.3 fL (81-99); Mean Platelet Vol. 9.9 fl (6.2-12.0); Monocyte# 0.53 X10^3/uL; Monocyte% 6.3 % (0-10); NRBC Flagged by Analyzer 0 % (0-5); Neutrophil # 6.21 X10^3/uL (2.7-7.7); Neutrophil % 74.3 % (47-70); Platelet Count 289 K/mm3 (150-450); RBC Distribution Width CV 13.2 % (11.6-14.6); RBC Distribution Width SD 47.5 fl (35.1-43.9); Red Blood Count 3.73 M/mm3 (4.2-5.4); White Blood Count 8.4 K/mm3 (4.4-11.0)
[2024-07-05 12:04] LABS: Red Blood Cells-Urine 0-5 SEEN /hpf (0-5); White Blood Cells 0-5 SEEN /hpf (0-5)
[2024-07-05 12:06] LABS: Hyaline Cast 10-25 SEEN /lpf (0-5); Squamous Epithelial Cells - UA 0-5 SEEN /hpf (5-10)
[2024-07-05 12:20] LABS: ALB/GLOB Ratio 1.5 RATIO (0.9-2.4); AST(SGOT) 19 U/L (<=31); Alanine Aminotransfer ALT/SGPT 14 U/L (<=34); Albumin, Serum 3.8 g/dL (3.4-4.8); Alkaline Phosphatase 53 U/L (35-104); Anion Gap 11 (5-15); BUN 14 mg/dL (4-19); BUN/Creat Ratio 12.3 RATIO (10-20); Calcium,Total 8.6 mg/dL (7.6-11.0); Carbon Dioxide 22.9 mmol/L (21.0-32.0); Chloride 105 mmol/L (98-108); Creatinine, Serum 1.14 mg/dL (0.70-1.20); EST Glomerular Filtration Rate 52 (>60); Globulin 2.5 g/dL (2.2-4.2); Glucose 95 mg/dL (70-99); Potassium 4.1 mmol/L (3.3-5.1); Protein, Total 6.4 g/dL (5.9-8.4); Sodium Level 138 mmol/L (133-145); Total Bilirubin 0.32 mg/dL (0.00-1.30)
== END | disposition home or self-care (01) ==
LOC: LAB 10:53
PROVIDERS: PCP Internal Medicine; Referring Provider Internal Medicine Rheumatology; Visit Provider Internal Medicine Rheumatology
DX: M06.4 Inflammatory polyarthropathy (principal); M79.7 Fibromyalgia; M19.041 Primary osteoarthritis, right hand; Z79.899 Other long term (current) drug therapy
CPT/HCPCS: 36415; 80053; 81001; 85025; 87086; 87088

== ENCOUNTER → 2024-09-29 | Outpatient (CLI) | payer MEDICARE, BC, SELFPAY ==
[2024-09-29 15:29] LABS: Absolute Lymphocyte Count 1.79 X10^3/uL (0.83-4.51); Absolute Neutrophil Count 5.2 X10^3/uL (2.0-7.7); Basophil# 0.05 X10^3/uL; Basophil% 0.6 % (0-1); Eosinophil# 0.29 X10^3/uL; Eosinophils% 3.7 % (0-5); Hematocrit 37.7 % (37-47); Hemoglobin 12.4 g/dL (12.0-15.0); Lymphocyte # 1.79 X10^3/ul (0.83-4.51); Lymphocyte % 22.7 % (19-41); Mean Corp Hgb Conc 32.9 g/dL (32-36); Mean Corpuscular Hgb 31.5 pg (27.0-32.0); Mean Corpuscular Volume 95.7 fL (81-99); Mean Platelet Vol. 10.1 fl (6.2-12.0); Monocyte# 0.52 X10^3/uL; Monocyte% 6.6 % (0-10); NRBC Flagged by Analyzer 0 % (0-5); Neutrophil # 5.17 X10^3/uL (2.7-7.7); Neutrophil % 65.8 % (47-70); Platelet Count 299 K/mm3 (150-450); RBC Distribution Width CV 12.6 % (11.6-14.6); RBC Distribution Width SD 44.1 fl (35.1-43.9); Red Blood Count 3.94 M/mm3 (4.2-5.4); White Blood Count 7.9 K/mm3 (4.4-11.0)
[2024-09-29 16:33] LABS: ALB/GLOB Ratio 1.7 RATIO (0.9-2.4); AST(SGOT) 21 U/L (<=31); Alanine Aminotransfer ALT/SGPT 15 U/L (<=34); Alkaline Phosphatase 56 U/L (35-104); Anion Gap 11 (5-15); BUN 22 mg/dL (4-19); BUN/Creat Ratio 16.8 RATIO (10-20); Calcium,Total 9.1 mg/dL (7.6-11.0); Carbon Dioxide 25.5 mmol/L (21.0-32.0); Chloride 102 mmol/L (98-108); EST Glomerular Filtration Rate 44 (>60); Globulin 2.4 g/dL (2.2-4.2); Glucose 84 mg/dL (70-99); Potassium 3.7 mmol/L (3.3-5.1); Protein, Total 6.5 g/dL (5.9-8.4); Sodium Level 138 mmol/L (133-145); Total Bilirubin 0.21 mg/dL (0.00-1.30)
== END | disposition home or self-care (01) ==
LOC: LAB 14:05
PROVIDERS: PCP Internal Medicine; Referring Provider Internal Medicine Rheumatology; Visit Provider Internal Medicine Rheumatology
DX: M06.4 Inflammatory polyarthropathy (principal); M79.7 Fibromyalgia; M19.041 Primary osteoarthritis, right hand; Z79.899 Other long term (current) drug therapy
CPT/HCPCS: 36415; 80053; 85025

== ENCOUNTER → 2024-10-23 | Outpatient (CLI) | payer MEDICARE, BC, SELFPAY ==
--- OUTSIDE RECORDS SUMMARY | 2024-10-23 10:58 | XMS RPT_ITS | CCD ---
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 Chris Montelongo Primary Care Provider [phone] Dr. Chris Montelongo Referring Provider [phone] LEANNA Ha Attending Provider Dr. Scott Smith Attending Provider Dr. Chris Montelongo Attending Provider [phone] Dr. Jennifer Simental Attending Provider Dr. Chris Montelongo Primary Care Provider [phone] Dr. Chris Montelongo Referring Provider [phone] Dr. Chris Montelongo Attending Provider [phone] Dr. Chris Montelongo Primary Care Provider [phone] Dr. Chris Montelongo Attending Provider [phone] Dr. Chris Montelongo Referring Provider [phone] Dr. Jennifer Simental Attending Provider Dr. Chris Montelongo Primary Care Provider [phone] Dr. Chris Montelongo Referring Provider [phone] Dr. Chris Montelongo Attending Provider [phone] Niru HEALTH ADVISOR, HEALTH ADVISOR-C Felicia Attending Provider Niru HEALTH ADVISOR, HEALTH ADVISOR-C Felicia Referring Provider Dr. Chris Montelongo Primary Care Provider Jayda, Dr. Perez Referring Provider Dr. Jennifer Simental Attending Provider Dr. Chris Montelongo Primary Care Provider Jayda, Dr. Perez Attending Provider Olepalomo, Dr. Perez Referring Provider [phone] Niru HEALTH ADVISOR, HEALTH ADVISOR-C Felicia Attending Provider Niru HEALTH ADVISOR, HEALTH ADVISOR-C Felicia Referring Provider Dr. Jennifer Simental Attending Provider Dr. Chris Montelongo Primary Care Provider [phone] Jayda, Dr. Perez Attending Provider [phone] Jayda, Dr. Perez Referring Provider [phone] Dr. Jennifer Simental Attending Provider Dr. Chris Montelongo Primary Care Provider [phone] Jayda, Dr. Perez Referring Provider [phone] Jayda, Dr. Perez Attending Provider [phone] Dr. Chris Montelnogo Primary Care Provider [phone] Dr. Chris Montelongo Referring Provider Dr. Jennifer Simental Attending Provider Dr. Chris Montelongo Primary Care Provider [phone] Jayda, Dr. Perez Referring Provider Dr. Jennifer Simental Attending Provider Dr. Chris Montelongo Attending Provider [phone] Dr. Scott Smith Attending Provider Dr. Chris Montelongo Primary Care Provider [phone] Dr. Chris Montelongo Attending Provider [phone] Dr. Chris Montelongo Referring Provider [phone] Niru HEALTH ADVISOR, HEALTH ADVISOR-C Felicia Attending Provider Dr. Chris Montelongo Primary Care Provider [phone] Dr. Scott Smith Attending Provider [phone] Niru HEALTH ADVISOR, HEALTH ADVISOR-C Felicia Attending Provider Niru HEALTH ADVISOR, HEALTH ADVISOR-C Felicia Referring Provider Belen Connor Attending Provider Unavailabl e Dr. Chris Montelongo Attending Provider [phone] Dr. Chris Montelongo Referring Provider [phone] Lucy DAVIS, Shari Sahni Primary Care Provider [phone] Jayda DAVIS, Dr. Perez Primary Care Provider Jarett DAVIS, Dr. Cristina Attending Provider Jarett DAVIS, Dr. Cristina Referring Provider Jarett DAVIS, Dr. Cristina Emergency Provider Jayda DAVIS, Dr. Perez Referring Provider [phone] Soledad DAVIS, Dr. Gonzalez Attending Provider Dr. Scott Smith MD Attending Provider Krunal DAVIS, Dr. Dudley Attending Provider Krunal DAVIS, Dr. Dudley Referring Provider Jayda DAVIS, Dr. Perez Attending Provider [phone] Sarah DAVIS, Dr. Chavez Referring Provider Niru HEALTH ADVISOR-C, Felicia Attending Provider Niru HEALTH ADVISOR-C, Felicia Referring Provider Hola DAVIS, Dr. Rodriguez Attending Provider Hola DAVIS, Dr. Rodriguez Referring Provider Viki DAVIS, Dr. Gold Primary Care Provider Unava ilnanci Cameron MD, Dr. Carlos Ren Referring Provider Jayda DAVIS, Dr. Perez Primary Care Provider Jayda DAVIS, Dr. Perez Referring Provider Hola DAVIS, Dr. Rodriguez Attending Provider Hola DAVIS, Dr. Rodriguez Referring Provider Krunal DAVIS, Dr. Dudley Attending Provider Krunal DAVIS, Dr. Dudley Referring Provider Jayda DAVIS, Dr. Perez Attending Provider Asif Drew Primary Care Unavailable Carlos Cameron Referring Unavailable Jennifer Simental Attending Unavailable Oleghe, Efewongbe Primary Care Unavailable Niru HEALTH ADVISOR, Felicia Attending Unavailable Niru HEALTH ADVISOR, Felicia Referring Unavailable Oleghe, Efewongbe Referring Unavailable Oleghe, Efewongbe Attending Unavailable Oleghe, Efewongbe Primary Care Unavailable Denson Jonnie Attending Unavailable Denson, Jonnie Referring Unavailable Oleghe, Efewongbe Primary Care Unavailable Krunal Octavia Attending Unavailable Oleghe, Efewongbe Primary Care Unavailable Krunal Octavia Referring Unavailable Basali, Ayman Attending Unavailable Basali, Ayman Referring Unavailable Oleghe, Efewongbe Primary Care Unavailable Rosaliolanki Octavia Attending Unavailable Oleghe, Efewongbe Primary Care Unavailable Rosaliolanestephania Octavia Referring Unavailable Oleghe, Efewongbe Referring Unavailable Oleghe, Efewongbe Primary Care Unavailable Carlos Rowe Attending Unavailable Jennifer Simental Attending Unavailable Jennifer Simental Referring Unavailable Oleghe, Efewongbe Primary Care Unavailable Scott Smith Attending Unavailable Oleghe, Efewongbe Primary Care Unavailable Oleghe, Efewongbe Attending Unavailable Oleghe, Efewongbe Referring Unavailable Oleghe, Efewongbe Primary Care Unavailable Oleghe, Efewongbe Referring Unavailable Scott Smith Attending Unavailable Oleghe, Efewongbe Primary Care Unavailable Oleghe, Efewongbe Referring Unavailable Oleghe, Efewongbe Primary Care Unavailable Carlos Rowe Attending Unavailable Oleghe, Efewongbe Referring Unavailable Oleghe, Efewongbe Primary Care Unavailable Carlos Rowe Attending Unavailable Jennifer Simental Attending Unavailable Napoleonkarus Mansour Referring Unavailable Oleghe, Efewongbe Primary Care Unavailable Krunal Octavia Referring Unavailable Vellanki Octavia Attending Unavailable Oleghe, Efewongbe Primary Care Unavailable Niru HEALTH ADVISOR, Felicia Referring Unavailable Oleghe, Efewongbe Primary Care Unavailable Niru HEALTH ADVISOR, Felicia Attending Unavailable Oleghe, Efewongbe Referring Unavailable Oleghe, Efewongbe Attending Unavailable Oleghe, Efewongbe Primary Care Unavailable Oleghe, Efewongbe Referring Unavailable Oleghe, Efewongbe Attending Unavailable Oleghe, Efewongbe Primary Care Unavailable Scott Smith Attending Unavailable SarahJacoboScott Referring Unavailable Oleghe, Efewongbe Primary Care Unavailable Oleghe, Efewongbe Referring Unavailable Oleghe, Efewongbe Primary Care Unavailable Carlos Rowe Attending Unavailable Oleghe, Efewongbe Attending Unavailable Oleghe, Efewongbe Referring Unavailable Oleghe, Efewongbe Primary Care Unavailable Oleghe, Efewongbe Referring Unavailable Oleghe, Efewongbe Primary Care Unavailable Jennifer Simental Attending Unavailable Oleghe, Efewongbe Referring Unavailable Oleghe, Efewongbe Attending Unavailable Oleghe, Efewongbe Primary Care Unavailable Oleghe, Efewongbe Referring Unavailable Oleghe, Efewongbe Primary Care Unavailable Clint Yepez Attending Unavailable Oleghe, Efewongbe Referring Unavailable Oleghe, Efewongbe Primary Care Unavailable Belen Renae Attending Unavailable Scott Smith Attending Unavailable Oleghe, Efewongbe Primary Care Unavailable Oleghe, Efewongbe Primary Care Unavailable Robert Motta Admitting Unavailable Robert Motta Consulting Unavailable Franco Hernandez Attending Unavailable Oleghe, Efewongbe Attending Unavailable Oleghe, Efewongbe Referring Unavailable Oleghe, Efewongbe Primary Care Unavailable Vellanki, Octavai Attending Unavailable Oleghe, Efewongbe Primary Care Unavailable Vellanki, Octavia Referring Unavailable Oleghe, Efewongbe Primary Care Unavailable Niru HEALTH ADVISOR, Felicia Attending Unavailable Oleghe, Efewongbe Attending Unavailable Oleghe, Efewongbe Referring Unavailable Oleghe, Efewongbe Primary Care Unavailable Oleghe, Efewongbe Primary Care Unavailable Robert Motta Attending Unavailable Robert Motta Admitting Unavailable Vellanki, Octavia Attending Unavailable Oleghe, Efewongbe Primary Care Unavailable Vellanki, Octavia Referring Unavailable BasaliJose Attending Unavailable Basali, Ayman Referring Unavailable Oleghe, Efewongbe Primary Care Unavailable Sarai Armijo Attending Unavailable Robert Motta Attending Unavailable Oleghe, Efewongbe Referring Unavailable Jennifer Simental Attending Unavailable Oleghe, Efewongbe Primary Care Unavailable Oleghe, Efewongbe Primary Care Unavailable Vellanki, Octavia Attending Unavailable Vellanki, Octavia Referring Unavailable Scott Smith Attending Unavailable Oleghe, Efewongbe Primary Care Unavailable Allergies Allergy Classification Reported Allergen(s) Allergy Type Date of Onset Reaction(s) Facility (19 sources) Latex Propensity to adverse reactions 2 Rash [facility] (19 sources) Triiodobenzoic Acids Propensity to adverse reactions 2 Hives [facility] (3 sources) Morphine Drug Allergy 5 Other [facility] Comment on above: Pt reports extreme d rowsiness, clammy and altered LOC. (1 source) Latex Drug allergy (disorder) 5 [facility] (1 source) Morphine Drug Allergy 5 [facility] (1 source) Iodinated Contrast Media Drug allergy (disorder) 5 [facility] Medications Current Medications Medication Drug Class(es) Dates Sig (Normalized) Sig (Original) anastrozole 1 mg oral tablet (20 sources) Aromatase Inhibitor Start: 08-28-2020 End: 09-03-2024 take 1 tablet by mouth once daily Anastrozole 1 mg tablet Active 1 mg PO DAILY September 03, 2024 10:12am Start: 07-27-2020 End: 08-26-2020 take 1 tablet by mouth once daily Anastrozole 1 MG tablet Discontinued 1 mg PO DAILY July 27, 2020 12:00am August 25, 2020 12:00am August 26, 2020 12:01am 12 hr buPROPion hydrochloride 90 mg / naltrexone hydrochloride 8 mg extended release oral tablet (1 source) Opioid Antagonist, Aminoketone Start: 08-02-2024 Naltrexone-Bupropion (Contrave) 8-90 mg tablet extended release Active 2 {tbl} PO TWICE A DAY 360 90 August 02, 2024 12:00am October 30, 2024 12:00am 1 ml denosumab 60 mg/ml prefilled syringe (20 sources) RANK Ligand Inhibitor Start: 06-05-2021 End: 05-05-2024 Denosumab (Prolia) 60 mg/mL syringe Active 60 mg SC every 6 months May 05, 2024 1:00am [id number] 0.3 ml EPINEPHrine 1 mg/ml auto-injector (3 sources) alpha-Adrenergic Agonist, beta-Adrenergic Agonist, Catecholamine Start: 09-18-2023 Epinephrine (Epipen 2-Federico) 0.3 mg/0.3 mL auto-injector Active 0.3 mg IM every 5 to 15 minutes as needed for anaphylaxis September 18, 2023 12:00am do not exceed 3 doses per episode hydroxychloroquine sulfate 200 mg oral tablet (11 sources) Antimalarial, Antirheumatic Agent Start: 11-24-2023 take 1 tablet by mouth twice daily Hydroxychloroquine (Plaquenil) 200 mg tablet Active 200 mg PO TWICE A DAY November 24, 2023 12:00am Start: 05-27-2023 End: 07-02-2023 take 1 tablet by mouth twice daily Hydroxychloroquine 200 mg tablet Discontinued 200 mg PO TWICE A DAY May 27, 2023 1:00am July 02, 2023 10:53am predniSONE 10 mg oral tablet (20 sources) Start: 07-02-2023 take 1 tablet by mouth once daily as needed Prednisone 10 mg tablet Active 10 mg PO DAILY as needed for poly flair July 02, 2023 1:00am Start: 07-02-2023 Prednisone Act marcellus MG PO July 02, 2023 1:00am Start: 08-14-2021 End: 09-20-2021 take 1 tablet by mouth twice daily Prednisone 20 mg tablet Discontinued 20 mg PO TWICE A DAY August 14, 2021 12:00am September 20, 2021 4:43pm 24 hr propranolol hydrochloride 80 mg extended release oral capsule (20 sources) beta-Adrenergic Fatoumata Start: 07-13-2024 take 1 capsule by mouth every twenty-four hours at bedtime Propranolol 80 mg capsule,extended release 24 hr Active 80 mg PO AT BEDTIME July 13, 2024 5:20pm Start: 02-25-2024 End: 04-16-2024 take 1 capsule by mouth every twenty-four hours at bedtime Propranolol 80 mg capsule,extended release 24 hr Discontinued 80 mg PO AT BEDTIME February 25, 2024 10:32am April 16, 2024 12:36pm Start: 11-14-2020 End: 01-28-2024 take 1 capsule by mouth every twenty-four hours at bedtime Propranolol 80 mg capsule,extended release 24 hr Discontinued 80 mg PO AT BEDTIME November 14, 2023 4:39pm January 28, 2024 3:44pm Start: 09-14-2020 End: 11-14-2020 take 1 capsule by mouth every twenty-four hours at bedtime Propranolol 60 mg capsule,extended release 24 hr Discontinued 60 mg PO AT BEDTIME November 07, 2020 4:02pm November 14, 2020 10:07am SUMAtriptan 50 mg oral tablet (20 sources) Serotonin-1b and Serotonin-1d Receptor Agonist Start: 07-05-2024 take 1 tablet by mouth every two hours Sumatriptan Succinate 50 mg tablet Active 0 PO .COMPLEX July 05, 2024 5:13pm take 1 tab at onset of headache; if no relief may repeat 1 tab after at least 2 hrs; max = 4 tabs/24 hr PO Start: 01-10-2023 End: 01-28-2024 take 1 tablet by mouth every two hours Sumatriptan Succinate 50 mg tablet Discontinued 0 PO .COMPLEX January 10, 2023 10:59am January 28, 2024 3:44pm take 1 tab at onset of headache; if no relief may repeat 1 tab after at least 2 hrs; max = 4 tabs/24 hr PO Start: 10-19-2020 End: 01-10-2023 take 1 tablet by mouth every two hours Sumatriptan Succinate (Imitrex) 25 mg tablet Discontinued 0 PO .COMPLEX August 07, 2021 8:56am January 10, 2023 11:00am take 1 tab at onset of headache; if no relief may repeat 1 tab after at least 2 hrs; max = 4 tabs/24 hr PO Start: 02-19-2019 End: 02-24-2019 take 1 tablet by mouth once as needed Sumatriptan Succinate 100 mg tablet Discontinued 100 mg PO ONCE as needed February 19, 2019 12:00am February 24, 2019 9:58am traZODone hydrochloride 100 mg oral tablet (20 sources) Serotonin Reuptake Inhibitor Start: 05-26-2023 End: 08-02-2024 take 1 tablet by mouth at bedtime Trazodone 100 mg tablet Active 100 mg PO AT BEDTIME August 02, 2024 12:36pm Start: 09-11-2021 End: 05-26-2023 take 50-100 mg by mouth at bedtime Trazodone Discontinued 50 - 100 MG PO AT BEDTIME May 16, 2023 5:21pm May 26, 2023 6:45pm 1-2 tabs Start: 02-19-2019 End: 05-26-2023 take 50-100 mg by mouth at bedtime as needed for sleep Trazodone 50 mg tablet Discontinued 50 - 100 mg PO AT BEDTIME as needed for Sleep May 16, 2023 5:21pm May 26, 2023 6:45pm 1-2 tabs Completed/Discontinued Medications Medication Drug Class(es) Dates Sig (Normalized) Sig (Original) acetaminophen 325 mg oral tablet (19 sources) Start: 02-24-2019 End: 02-26-2023 take 1-10 tablets by mouth every six hours as needed for pain Acetaminophen (Tylenol) 325 mg tablet Discontinued 325 mg PO EVERY 6 HOURS as needed for Pain 1-10 Or Fever February 24, 2019 12:00am February 26, 2023 11:26am acetaminophen 325 mg / HYDROcodone bitartrate 5 mg oral tablet (20 sources) Opioid Agonist Start: 11-14-2020 End: 01-30-2021 Hydrocodone-Acetami nophen 5-325 mg tablet Discontinued 1 {tbl} PO Q8H as needed November 14, 2020 12:00am January 30, 2021 2:27pm Start: 11-14-2020 End: 01-30-2021 take 1 tablet by mouth every eight hours Hydrocodone-Acetaminophen Discontinued 1 TABLET PO Q8H November 14, 2020 12:00am January 30, 2021 2:27pm Start: 06-13-2020 End: 06-17-2020 Hydrocodone-Acetaminophen 1 TABLET tablet Discontinued 1 {tbl} PO EVERY 6 HOURS NEEDED as needed for Pain Score 4-10 12 4 June 13, 2020 June 16, 2020 1:00am June 17, 2020 1:03am Start: 06-13-2020 End: 06-17-2020 take 1 tablet by mouth every six hours as needed Hydrocodone-Acetaminophen Discontinued 1 TABLET PO EVERY 6 HOURS NEEDED 12 4 June 13, 2020 June 17, 2020 1:03am Start: 02-19-2019 End: 05-18-2020 Hydrocodone-Acetaminophen 5- 325 mg tablet Discontinued 1 {tbl} PO THREE TIMES A DAY as needed February 19, 2019 12:00am May 18, 2020 8:18am Start: 02-19-2019 End: 05-18-2020 take 1 tablet by mouth three times daily Hydrocodone-Acetaminophen Discontinued 1 TABLET PO THREE TIMES A DAY February 19, 2019 12:00am May 18, 2020 8:18am [id number] 200 actuat albuterol 0.09 mg/actuat metered dose inhaler (20 sources) beta2-Adrenergic Agonist Start: 09-20-2021 End: 12-25-2023 Albuterol Sulfate 90 mcg/actuation HFA aerosol inhaler Discontinued 2 NMA INHALATION EVERY 6 HOURS as needed for Asthma 8.May 16, 2023 5:19pm November 24, 2023 4:57pm Start: 09-20-2021 End: 05-16-2023 take 1 puff(s) by inhalation every six hours Albuterol Sulfate Active 2 PUFF INHALATION EVERY 6 HOURS 8.May 16, 2023 5:19pm Start: 08-10-2013 End: 09-20-2021 take 1 puff(s) by inhalation every four hours as needed Albuterol Sulfate Discontinued 1 PUFF INHALATION EVERY 4 HOURS NEEDED August 09, 2013 11:00pm September 20, 2021 3:59pm Start: 08-10-2013 End: 09-20-2021 take 1 puff(s) by inhalation every four hours as needed Albuterol Sulfate Discontinued 1 PUFF INHALATION EVERY 4 HOURS NEEDED August 10, 2013 12:00am September 20, 2021 4:59pm Albuterol Sulfate 1 PUFF inhaler (3 sources) Start: 08-10-2013 End: 09-20-2021 Albuterol Sulfate 1 PUFF inhaler Discontinued 1 NMA INHALATION EVERY 4 HOURS NEEDED as needed for Asthma August 10, 2013 12:00am September 20, 2021 4:59pm alendronic acid 70 mg oral tablet (19 sources) Bisphosphonate Start: 08-10-2013 End: 02-19-2019 Alendronate 70 MG tablet Discontinued 70 mg PO August 10, 2013 12:00am February 19, 2019 11:21am amoxicillin 875 mg / clavulanate 125 mg oral tablet (9 sources) Penicillin-class Antibacterial Start: 03-28-2024 End: 04-02-2024 take 1 tablet by mouth every twelve hours Amoxicillin-Pot Clavulanate 875-125 mg tablet Discontinued 875 mg PO Q12H March 28, 2024 1:00am April 02, 2024 2:07pm Start: 02-25-2024 End: 03-30-2024 Amoxicillin-Pot Clavulanate 875-125 mg tablet Discontinued 1 {tbl} PO TWICE A DAY February 25, 2024 12:00am March 30, 2024 12:11pm Start: 02-01-2024 End: 02-12-2024 Amoxicillin-Pot Clavulanate (Augmentin) 500-125 mg tablet Discontinued 1 {tbl} PO TWICE A DAY February 01, 2024 12:00am February 12, 2024 9:38am benzonatate 100 mg oral capsule (3 sources) Non-narcotic Antitussive Start: 02-19-2024 End: 03-30-2024 take 2 capsules by mouth three times daily as needed for cough Benzonatate 100 mg capsule Discontinued 200 mg PO THREE TIMES A DAY as needed for cough February 19, 2024 12:00am March 30, 2024 12:11pm budesonide 3 mg delayed release oral capsule (16 sources) Corticosteroid Start: 03-29-2022 End: 05-29-2022 take 3 capsules by mouth once daily Budesonide 3 mg capsule,delayed,ex tend.release Discontinued 9 mg PO DAILY March 29, 2022 1:00am May 29, 2022 2:42pm Start: 03-29-2022 End: 05-29-2022 take 9 mg by mouth once daily Budesonide Discontinued 9 MG PO DAILY March 29, 2022 1:00am May 29, 2022 2:42pm calcium carbonate 1500 mg / cholecalciferol 800 unt chewable tablet (19 sources) Vitamin D Start: 08-15-2020 End: 09-20-2021 take 1 tablet by mouth twice daily Calcium Carbonate-Vitamin D3 (Caltrate 600 Plus D) 600 mg (1,500 mg)-800 unit tablet,chewable Discontinued 1 {tbl} PO TWICE A DAY August 15, 2020 12:00am September 20, 2021 4:42pm cannabidiol 100 mg/ml oral solution (19 sources) Start: 06-06-2020 End: 10-19-2020 take 100 mg by mouth once daily as needed for pain Cannabidiol 100 MG/ML solution Discontinued 0.25 mg PO DAILY as needed for Pain Score 1-10 June 06, 2020 1:00am October 19, 2020 2:54pm places under tongue Start: 06-06-2020 End: 10-19-2020 take 0.25 mg by mouth once daily Cannabidiol Discontinued 0.25 MG PO DAILY June 06, 2020 1:00am October 19, 2020 2:54pm places under tongue CBD OIL (19 sources) Start: 02-24-2019 End: 05-18-2020 CBD OIL Discontinued SL TWIC E A DAY February 23, 2019 11:00pm May 18, 2020 7:18am Start: 02-24-2019 End: 05-18-2020 CBD OIL Discontinued SL TWIC E A DAY February 24, 2019 12:00am May 18, 2020 8:18am celecoxib 200 mg oral capsule (9 sources) Nonsteroidal Anti-inflammatory Drug Start: 02-26-2023 End: 05-27-2023 take 1 capsule by mouth once daily Celecoxib (Celebrex) 200 mg capsule Discontinued 200 mg PO DAILY February 26, 2023 12:00am May 27, 2023 12:57pm cyclobenzaprine hydrochloride 10 mg oral tablet (19 sources) Muscle Relaxant Start: 02-19-2019 End: 02-24-2019 take 1 tablet by mouth three times daily as needed Cyclobenzaprine 10 mg tablet Discontinued 10 mg PO THREE TIMES A DAY as needed February 19, 2019 12:00am February 24, 2019 9:57am dicyclomine hydrochloride 20 mg oral tablet (20 sources) Anticholinergic Start: 11-15-2021 End: 07-01-2022 take 1 tablet by mouth twice daily as needed Dicyclomine 20 mg tablet Discontinued 20 mg PO TWICE A DAY as needed for abdominal discomfort 60 January 31, 2022 11:29am July 01, 2022 10:05am Start: 09-20-2021 End: 11-15-2021 take 1 tablet by mouth three times daily as needed Dicyclomine 20 mg tablet Discontinued 20 mg PO THREE TIMES A DAY as needed for abdominal discomfort 90 September 20, 2021 12:00am November 15, 2021 1:49pm diphenhydrAMINE hydrochloride 25 mg oral capsule (19 sources) Histamine-1 Receptor Antagonist Start: 09-12-2020 End: 11-15-2021 take 1 capsule by mouth three times daily as needed Diphenhydramine Hcl (Benadryl) 25 mg capsule Discontinued 25 mg PO THREE TIMES A DAY as needed September 12, 2020 12:00am November 15, 2021 1:46pm doxycycline monohydrate 100 mg oral capsule (3 sources) Tetracycline-clas s Drug Start: 02-19-2024 End: 02-25-2024 take 1 capsule by mouth twice daily Doxycycline Monohydrate 100 mg capsule Discontinued 100 mg PO TWICE A DAY 14 02February 19, 2024 12:00am February 28, 2024 12:00am February 25, 2024 10:29am ergocalciferol 1.25 mg oral capsule (20 sources) Provitamin D2 Compound Start: 02-19-2019 End: 09-20-2021 Ergocalciferol (Vitamin D2) 50,000 unit capsule Discontinued 53483 U PO .Q10 DAYS February 19, 2019 11:20am September 20, 2021 4:42pm Start: 08-10-2013 End: 02-19-2019 Ergocalciferol (Vitamin D2) 50,000 UNIT capsule Discontinued 33307 U PO Every 3 Days August 10, 2013 12:00am February 19, 2019 11:21am ferrous sulfate 325 mg oral tablet (19 sources) Start: 08-19-2017 End: 09-20-2021 take 1 tablet by mouth once daily Ferrous Sulfate 325 MG tablet Discontinued 325 mg PO DAILY@0800 August 19, 2017 12:00am September 20, 2021 4:42pm Cppubeoqbsh-Vgjgzasch-Nmd anter (3 sources) Anticholinergic, Corticosteroid, beta2-Adrenergic Agonist Start: 03-01-2024 End: 03-30-2024 Fluticasone-Umecl idin-Vilanter (Trelegy Ellipta) 100-62.5-25 mcg blister with device Discontinued 1 NMA INHALATION Q24H 60 March 01, 2024 1:00am March 30, 2024 12:12pm folic acid 1 mg oral tablet (3 sources) Start: 11-24-2023 End: 01-08-2024 take 2 tablets by mouth once daily at bedtime Folic Acid 1 mg tablet Discontinued 2 mg PO DAILY November 24, 2023 12:00am January 08, 2024 2:00pm at bedtime gabapentin 300 mg oral capsule (9 sources) Anti-epileptic Agent Start: 02-26-2023 End: 05-27-2023 take 1 capsule by mouth twice daily Gabapentin 300 mg capsule Discontinued 300 mg PO TWICE A DAY February 26, 2023 12:00am May 27, 2023 12:57pm hydroCHLOROthiazide 12.5 mg / lisinopril 20 mg oral tablet (19 sources) Thiazide Diuretic, Angiotensin Converting Enzyme Inhibitor Start: 02-24-2019 End: 05-18-2020 Lisinopril-Hydroc hlorothiazide 20-12.5 mg tablet Discontinued 1 {tbl} PO DAILY February 24, 2019 12:00am May 18, 2020 8:18am Start: 02-24-2019 End: 05-18-2020 take 1 tablet by mouth once daily Lisinopril-Hydrochlorothiazide Discontin ued 1 TABLET PO DAILY February 24, 2019 12:00am May 18, 2020 8:18am hydroCHLOROthiazide 12.5 mg / losartan potassium 50 mg oral tablet (19 sources) Thiazide Diuretic, Angiotensin 2 Receptor Fatoumata Start: 02-19-2019 End: 02-24-2019 Losartan-Hydrochlorothiazide 50-12.5 mg tablet Discontinued 1 {tbl} PO DAILY February 19, 2019 12:00am February 24, 2019 9:54am Start: 02-19-2019 End: 02-24-2019 take 1 tablet by mouth once daily Losartan-Hydrochlorothiazide Discontinue d 1 TABLET PO DAILY February 19, 2019 12:00am February 24, 2019 9:54am hydroCHLOROthiazide 12.5 mg / olmesartan medoxomil 20 mg oral tablet (20 sources) Thiazide Diuretic, Angiotensin 2 Receptor Fatoumata Start: 07-10-2022 End: 07-12-2023 take 1 tablet by mouth once daily Olmesartan-Hydrochlorothiazide Active 0 .ROUTE .COMPLEX July 12, 2023 11:11pm take 1 tablet by mouth once daily Start: 08-28-2020 End: 02-25-2024 take 1 tablet by mouth once daily Olmesartan-Hydrochlorothiazide 20-12.5 m g tablet Discontinued 0 .ROUTE .COMPLEX July 12, 2023 11:11pm February 25, 2024 10:33am take 1 tablet by mouth once daily ibuprofen 200 mg oral capsule (19 sources) Nonsteroidal Anti-inflammatory Drug Start: 05-31-2020 End: 11-15-2021 Ibuprofen 200 MG capsule Discontinued 200 mg PO NEEDED as needed for Pain 1-10 Or Fever May 31, 2020 1:00am November 15, 2021 1:46pm lacey 42 cream (3 sources) Start: 05-05-2024 End: 08-02-2024 lacey 42 cream Discontinued TOPICAL May 05, 2024 1:00am August 02, 2024 11:10am qd Start: 05-05-2024 lacey 42 cream Active TOPICAL May 05, 2024 1:00am qd loratadine 10 mg oral tablet (19 sources) Start: 09-12-2020 End: 01-30-2021 take 1 tablet by mouth once daily Loratadine (Claritin) 10 mg tablet Discontinued 10 mg PO DAILY September 12, 2020 12:00am January 30, 2021 2:27pm LORazepam 1 mg oral tablet (19 sources) Benzodiazepine Start: 02-19-2019 End: 02-24-2019 take 1 tablet by mouth once daily as needed Lorazepam 1 mg tablet Discontinued 1 mg PO DAILY as needed February 19, 2019 12:00am February 24, 2019 9:57am methotrexate 2.5 mg oral tablet (6 sources) Folate Analog Metabolic Inhibitor Start: 03-30-2024 End: 04-16-2024 Methotrexate Sodium 2.5 mg tablet Discontinued mg PO March 30, 2024 1:00am April 16, 2024 12:14pm Start: 11-24-2023 End: 01-08-2024 take 4 tablets by mouth every week Methotrexate Sodium 2.5 mg tablet Discontinued 10 mg PO EVERY WEEK November 24, 2023 12:00am January 08, 2024 2:00pm takes 4 tablets on Fri methylPREDNISolone 4 mg oral tablet (11 sources) Corticosteroid Start: 10-02-2022 End: 01-10-2023 take 1 tablet by mouth once daily Methylprednisolone (Medrol (Federico)) 4 mg tablets,dose pack Discontinued 4 mg PO DAILY October 02, 2022 12:00am January 10, 2023 10:42am 24 hr metoprolol succinate 50 mg extended release oral tablet (20 sources) beta-Adrenergic Fatoumata Start: 04-16-2024 End: 07-13-2024 take 1 tablet by mouth once daily Metoprolol Succinate (Toprol Xl) 50 mg tablet extended release 24 hr Discontinued 50 mg PO daily April 16, 2024 1:00am July 13, 2024 5:20pm Start: 08-15-2020 End: 09-14-2020 take 1 tablet by mouth once daily Metoprolol Succinate 50 mg tablet extended release 24 hr Discontinued 50 mg PO DAILY August 15, 2020 12:00am September 14, 2020 2:18pm Start: 02-19-2019 End: 08-15-2020 take 1 tablet by mouth once daily Metoprolol Tartrate 50 mg tablet Discontinued 50 mg PO DAILY February 19, 2019 11:17am August 15, 2020 3:12pm Start: 08-10-2013 End: 02-19-2019 take 1 tablet by mouth twice daily Metoprolol Tartrate 50 MG tablet Discontinued 50 mg PO TWICE A DAY August 10, 2013 12:00am February 19, 2019 11:21am olmesartan medoxomil 20 mg oral tablet (19 sources) Angiotensin 2 Receptor Fatoumata Start: 08-10-2013 End: 02-19-2019 take 1 tablet by mouth once daily Olmesartan 20 MG tablet Discontinued 20 mg PO DAILY August 10, 2013 12:00am February 19, 2019 11:16am omeprazole 20 mg delayed release oral capsule (19 sources) Proton Pump Inhibitor Start: 02-19-2019 End: 05-18-2020 take 1 capsule by mouth twice daily Omeprazole 20 mg capsule,delayed release(DR/EC) Discontinued 20 mg PO TWICE A DAY February 19, 2019 12:00am May 18, 2020 8:18am ondansetron 4 mg oral tablet (20 sources) Serotonin-3 Receptor Antagonist Start: 07-04-2020 End: 11-14-2020 take 4 mg by mouth every four hours Ondansetron Odt Discontinued 4 mg SL/PO Q4H July 04, 2020 1:00am November 14, 2020 9:48am Start: 07-04-2020 End: 11-15-2021 take 1 tablet by mouth every eight hours as needed for nausea Ondansetron Hcl 8 MG tablet Discontinued 8 mg PO EVERY 8 HOURS NEEDED as needed for Nausea/Emesis July 04, 2020 1:00am November 15, 2021 1:47pm oxyCODONE hydrochloride 5 mg oral tablet (3 sources) Opioid Agonist Start: 01-29-2024 End: 02-25-2024 take 1 tablet by mouth every six hours as needed for pain Oxycodone 5 mg tablet Discontinued 5 mg PO EVERY 6 HOURS as needed for pain 14 January 29, 2024 February 25, 2024 10:04am PARoxetine hydrochloride 30 mg oral tablet (20 sources) Serotonin Reuptake Inhibitor Start: 02-19-2019 End: 06-25-2024 take 1 tablet by mouth once daily Paroxetine Hcl 30 mg tablet Discontinued 30 mg PO DAILY December 25, 2023 2:08pm June 25, 2024 2:27pm pregabalin 50 mg oral capsule (8 sources) Start: 05-27-2023 End: 11-24-2023 take 1 capsule by mouth twice daily Pregabalin (Lyrica) 50 mg capsule Discontinued 50 mg PO TWICE A DAY May 27, 2023 1:00am November 24, 2023 2:59pm raNITIdine 300 mg oral tablet (19 sources) Histamine-2 Receptor Antagonist Start: 02-19-2019 End: 02-24-2019 take 1 tablet by mouth once daily Ranitidine Hcl 300 mg tablet Discontinued 300 mg PO DAILY February 19, 2019 12:00am February 24, 2019 9:58am Salmeterol (19 sources) beta2-Adrenergic Agonist Start: 08-10-2013 End: 02-19-2019 Salmeterol 50 MCG inhaler Discontinued 2 NMA INHALATION EVERY 12 HOURS August 10, 2013 12:00am February 19, 2019 11:21am Start: 08-10-2013 End: 02-19-2019 take 1 puff(s) by inhalation every twelve hours Salmeterol Discontinued 2 PUFF INHALATION EVERY 12 HOURS August 09, 2013 11:00pm February 19, 2019 10:21am Start: 08-10-2013 End: 02-19-2019 take 1 puff(s) by inhalation every twelve hours Salmeterol Discontinued 2 PUFF INHALATION EVERY 12 HOURS August 10, 2013 12:00am February 19, 2019 11:21am traMADol hydrochloride 50 mg oral tablet (20 sources) Opioid Agonist Start: 10-19-2020 End: 01-30-2021 take 1 tablet by mouth every eight hours as needed Tramadol 50 mg tablet Discontinued 50 mg PO Q8H as needed October 19, 2020 12:00am January 30, 2021 2:27pm Start: 08-10-2013 End: 02-19-2019 take 1 tablet by mouth every six hours as needed for pain Tramadol 50 MG tablet Discontinued 50 mg PO EVERY 6 HOURS NEEDED as needed for Pain August 10, 2013 12:00am February 19, 2019 11:21am triamcinolone acetonide 1 mg/ml topical cream (19 sources) Corticosteroid Start: 12-24-2021 End: 01-28-2024 Triamcinolone Acetonide 0.1 % cream Discontinued 1 NMA TOPICAL DAILY 80 December 24, 2021 12:00am January 28, 2024 3:44pm valACYclovir 1000 mg oral tablet (20 sources) Herpesvirus Nucleoside Analog DNA Polymerase Inhibitor, Herpes Simplex Virus Nucleoside Analog DNA Polymerase Inhibitor, Herpes Zoster Virus Nucleoside Analog DNA Polymerase Inhibitor Start: 10-24-2020 End: 11-15-2021 Valacyclovir (Valtrex) 1 gram tablet Discontinued 1000 mg PO DAILY June 11, 2021 2:06pm November 15, 2021 1:49pm Start: 02-19-2019 End: 05-18-2020 Valacyclovir 1 gram tablet Discontinued 2000 mg PO TWICE A DAY as needed February 19, 2019 12:00am May 18, 2020 8:18am Start: 02-19-2019 End: 05-18-2020 take 2000 mg by mouth twice daily Valacyclovir Discontinued 2000 MG PO TWICE A DAY February 19, 2019 12:00am May 18, 2020 8:18am divalproex sodium 125 mg delayed release oral tablet (10 sources) Mood Stabilizer, Anti-epileptic Agent Start: 01-10-2023 End: 02-26-2023 Divalproex (Depakote) 125 mg tablet,delayed release (DR/EC) Discontinued 250 mg PO DAILY January 10, 2023 12:00am February 26, 2023 11:27am Take 1 tablet QHS x 2 weeks then increase to 2 tabs Problems Active Problems Problem Classification Problem Date Documented Da te Episodic/Chronic Administrative/social admission (20 sources) Patient encounter status; Translations: [Counseling, unspecified] Episodic Allergic reactions (13 sources) Inflammatory dermatosis; Translations: [Dermatitis, unspecified] 10-02-2022 Episodic Anxiety disorders (20 sources) Anxiety; Translations: [Anxiety disorder, unspecified] Onset: 11-24-2023 03-02-2021 Chronic Asthma (9 sources) Asthma; Translations: [Unspecified asthma, uncomplicated] Onset: 07-01-2024 05-16-2023 Chronic Cancer of breast (20 sources) Malignant neoplasm of female breast; Translations: [Malignant neoplasm of unspecified site of left female breast] Onset: 07-01-2024 Chronic Cancer of breast (5 sources) History of malignant neoplasm of breast; Translations: [Personal history of malignant neoplasm of breast] 11-04-2023 Episodic Cancer of colon (19 sources) History of malignant neoplasm of colon; Translations: [Personal history of other malignant neoplasm of large intestine] 05-19-2021 Episodic Comment on above: 1980 - chemoradiatio n ([facility]) Chronic kidney disease (20 sources) Chronic kidney disease; Translations: [Chronic kidney disease, unspecified] Chronic Disorders of lipid metabolism (20 sources) Hyperlipidemia; Translations: [Hyperlipidemia, unspecified] Onset: 05-05-2024 06-06-2020 Chronic Essential hypertension (20 sources) Essential hypertension; Translations: [Essential (primary) hypertension] Onset: 05-27-2024 Chronic Gastritis and duodenitis (15 sources) Gastritis; Translations: [Gastritis, unspecified, without bleeding] 02-26-2023 Episodic Genitourinary symptoms and ill-defined conditions (4 sources) Scalding pain on urination ; Translations: [Dysuria] 07-05-2024 Episodic Headache; including migraine (20 sources) Migraine; Translations: [Migraine, unspecified, not intractable, without status migrainosus] 05-19-2021 Chronic Headache; including migraine (20 sources) Headache; Translations: [Headache] 05-19-2021 Episodic Headache; including migraine (1 source) Headache; including migraine; Translations: [Headache, unspecified] Onset: 07-13-2024 Malaise and fatigue (19 sources) Fatigue; Translations: [Other fatigue] 05-19-2021 Episodic Nausea and vomiting (20 sources) Nausea; Translations: [Nausea] 05-19-2021 Episodic Noninfectious gastroenteritis (20 sources) Microscopic colitis; Translations: [Microscopic colitis, unspecified] Chronic Noninfectious gastroenteritis (20 sources) Chronic diarrhea; Translations: [Noninfective gastroenteritis and colitis, unspecified] Episodic Nonmalignant breast conditions (12 sources) Mastodynia; Translations: [Pain of right breast] 07-10-2023 Episodic Nonspecific chest pain (19 sources) Chest pain; Translations: [Chest pain, unspecified] 08-25-2020 Episodic Osteoarthritis (20 sources) Primary gonarthrosis, bilateral; Translations: [Bilateral primary osteoarthritis of knee] Chronic Osteoporosis (20 sources) Osteoporosis; Translations: [Age-related osteoporosis without current pathological fracture] Onset: 07-01-2024 Chronic Other connective tissue disease (16 sources) Rupture of popliteal space synovial cyst; Translations: [Rupture of popliteal cyst] 08-14-2021 Episodic Other connective tissue disease (16 sources) Synovial cyst of right popliteal space; Translations: [Synovial cyst of popliteal space [Ly], right knee] 08-14-2021 Episodic Other connective tissue disease (19 sources) Fibromyalgia; Translations: [Fibromyalgia] 08-24-2020 Episodic Other connective tissue disease (3 sources) Rupture of popliteal cyst; Translations: [Ruptured synovial cyst of popliteal space] 08-14-2021 Episodic Other connective tissue disease (3 sources) Synovial cyst of popliteal space [Ly], right knee; Translations: [Synovial cyst of right popliteal space] 08-14-2021 Episodic Other ear and sense organ disorders (11 sources) Pain of ear structure; Translations: [Otalgia, unspecified ear] 10-02-2022 Episodic Other ear and sense organ disorders (2 sources) Otalgia, unspecified ear; Translations: [Otalgia, unspecified] 10-02-2022 Episodic Other eye disorders (19 sources) Pain in eye; Translations: [Ocular pain, left eye] 05-19-2021 Episodic Other gastrointestinal disorders (14 sources) Diarrhea; Translations: [Diarrhea, unspecified] 07-01-2022 Episodic Other gastrointestinal disorders (5 sources) Diarrhea, unspecified; Translations: [Diarrhea] 07-01-2022 Episodic Other lower respiratory disease (3 sources) Cough; Translations: [Cough] 02-25-2024 Episodic Other nervous system disorders (19 sources) Chronic pain; Translations: [Other chronic pain] 05-19-2021 Chronic Other non-traumatic joint disorders (20 sources) Pain in left knee; Translations: [Left knee pain] 09-20-2021 Episodic Other non-traumatic joint disorders (5 sources) Shoulder pain; Translations: [Pain in left shoulder] 03-29-2022 Episodic Other non-traumatic joint disorders (18 sources) Pain in left shoulder; Translations: [Pain in joint, shoulder region] Episodic Other nutritional; endocrine; and metabolic disorders (20 sources) Obesity; Translations: [Obesity, unspecified] 05-19-2021 Chronic Other nutritional; endocrine; and metabolic disorders (1 source) Obesity, unspecified; Translations: [Obesity, unspecified] Onset: 08-02-2024 Chronic Other skin disorders (19 sources) Dry skin dermatitis; Translations: [Xerosis cutis] 12-24-2021 Episodic Other skin disorders (4 sources) Xerosis cutis; Translations: [Contact dermatitis and other eczema due to other specified agents] Episodic Other upper respiratory disease (19 sources) Seasonal allergy; Translations: [Other seasonal allergic rhinitis] 05-19-2021 Chronic Other upper respiratory infections (3 sources) Acute sinusitis; Translations: [Acute sinusitis, unspecified] 02-19-2024 Episodic Pulmonary heart disease (19 sources) H/O: pulmonary embolus; Translations: [Personal history of pulmonary embolism] 05-19-2021 Episodic Residual codes; unclassified (20 sources) Obstructive sleep apnea syndrome; Translations: [Obstructive sleep apnea (adult) (pediatric)] 09-20-2021 Chronic Residual codes; unclassified (19 sources) Hypersomnia; Translations: [Hypersomnia, unspecified] 06-05-2021 Chronic Residual codes; unclassified (3 sources) Obstructive sleep apnea (adult) (pediatric); Translations: [Obstructive sleep apnea (adult)(pediatric)] Onset: 06-11-2024 Chronic Residual codes; unclassified (19 sources) Estrogen receptor positive tumor; Translations: [Estrogen receptor positive status [ER+]] 08-28-2020 Episodic Residual codes; unclassified (3 sources) Insomnia; Translations: [Insomnia, unspecified] 11-24-2023 Episodic Residual codes; unclassified (5 sources) Chill; Translations: [Chills (without fever)] 05-05-2024 Episodic Rheumatoid arthritis and related disease (20 sources) Rheumatoid arthritis; Translations: [Rheumatoid arthritis, unspecified] Onset: 10-04-2024 05-19-2021 Chronic Spondylosis; intervertebral disc disorders; other back problems (1 source) Other intervertebral disc degeneration, thoracic region; Translations: [Other intervertebral disc degeneration, thoracic region] Onset: 02-10-2024 Chronic Spondylosis; intervertebral disc disorders; other back problems (20 sources) Lumbar radiculopathy; Translations: [Radiculopathy, lumbar region] Onset: 10-15-2024 Episodic Syncope (19 sources) Near syncope; Translations: [Syncope and collapse] 05-19-2021 Episodic Unclassified (1 source) E66.9 - Obesity, unspecified Unclassified (1 source) Cough, unspecified; Translations: [Cough, unspecified] Onset: 03-17-2024 Past or Other Problems Problem Classification Problem Date Documented Date Episodic/Chronic Biliary tract disease (5 sources) Acute cholecystitis due to biliary calculus; Translations: [Calculus of gallbladder with acute cholecystitis without obstruction] Onset: 03-15-2024 02-09-2024 Episodic Cardiac dysrhythmias (13 sources) Palpitations; Translations: [Palpitations] Onset: 02-25-2024 07-10-2023 Episodic Diabetes mellitus without complication (1 source) Hyperglycemia, unspecified; Translations: [Hyperglycemia, unspecified] Onset: 05-05-2024 Episodic E Codes: Natural/environment (1 source) Bitten by dog, initial encounter; Translations: [Bitten by dog, initial encounter] Onset: 03-30-2024 Episodic Immunizations and screening for infectious disease (6 sources) Needs influenza immunization; Translations: [Encounter for immunization] Onset: 05-05-2024 05-05-2024 Episodic Open wounds of extremities (16 sources) Laceration of tendon of left hand; Translations: [Laceration without foreign body of left hand, initial encounter] Onset: 03-30-2024 04-05-2024 Episodic Other aftercare (1 source) Encounter for adjustment and management of vascular access device; Translations: [Encounter for adjustment and management of vascular access device] Onset: 07-01-2024 Episodic Other screening for suspected conditions (not mental disorders or infectious disease) (20 sources) Mammographic breast tissue appearance; Translations: [Inconclusive mammogram] Onset: 06-02-2024 06-05-2021 Episodic Residual codes; unclassified (2 sources) Estrogen receptor positive status [ER+]; Translations: [Estrogen receptor positive status [ER+]] Onset: 07-01-2024 Episodic Residual codes; unclassified (1 source) Acquired absence of other specified parts of digestive tract; Translations: [Acquired absence of other specified parts of digestive tract] Onset: 02-10-2024 Episodic Screening and history of mental health and substance abuse codes (20 sources) Tobacco use and exposure - finding; Translations: [Personal history of nicotine dependence] Onset: 06-30-2024 02-20-2021 Episodic Results Test Name Value Interpretation Reference Range Facility Absolute lymphocyte countOrd ered By: Octavia Hector on 09-29-2024 Lymphocytes Auto (Unsp spec) [#/Vol] 1.79 10*3/uL 0.83-4.51 [facility] Absolute neutrophil countOrd ered By: Octavia Hector on 09-29-2024 Neutrophils (Bld) [#/Vol] 5.2 10*3/uL 2.0-7.7 [facility] Anion gap in Serum or Plasma Ordered By: Octavia Hector on 09-29-2024 Anion gap [Moles/Vol] 11 mmol/L 5- [facility] Automated lymphocyte count a s percentage of total leukocytesOrdered By: Octavia Hector on 09-29-2024 Lymphocytes/100 WBC Auto (Unsp spec) 22.7 % - [facility] BUN/creatinine ratioOrdered By: Octaviareanna Hector on 09-29-2024 Urea nitrogen/Creatinine [Mass ratio] 16.8 mg/mg 10- [facility] Basophil percentageOrdered B y: Octavia Hector on 09-29-2024 Basophils/100 WBC (Bld) 0.6 % 0-1 [facility] Bilirubin, totalOrdered By: Octavia Hector on 09-29-2024 Bilirubin [Mass/Vol] 0.21 mg/dL 0.00-1.30 [facility] CBC W/Diff, Automatedon Absolute Lymph 1.79 X10 3/uL Normal 0.83-4.51 [facility] Comment on above: Performed By: #### L 100.0100, L500.4050 ####[facility] [address] [place], [address] Absolute Neut 5.2 X10 3/uL Normal 2.0-7.7 [facility] Comment on above: Performed By: #### L 100.0100, L500.4050 ####[facility] [address] [place], [address] Basophils/100 WBC (Bld) 0.6 % Normal 0-1 [facility] Comment on above: Performed By: #### L 100.0100, L500.4050 ####[facility] [address] [place], [address] Eosinophils/100 WBC (Bld) 3.7 % Normal 0-5 [facility] Comment on above: Performed By: #### L 100.0100, L500.4050 ####[facility] [address] [place], [address] Erythrocyte distribution width (RBC) [Ratio] 12.6 % Normal 11.6-14.6 [facility] Comment on above: Performed By: #### L 100.0100, L500.4050 ####[facility] [address] [place], [address] Hematocrit (Bld) [Volume fraction] 37.7 % Normal 37-47 [facility] Comment on above: Performed By: #### L 100.0100, [id number] ####[facility] [address] [place], [address] Hemoglobin (Bld) [Mass/Vol] 12.4 g/dL Normal 12.0-15.0 [facility] Comment on above: Performed By: #### L 100.0100, [id number] ####[facility] [address] [place], [address] IG% 0.600 Normal 0.0-0.9 [facility] Comment on above: Result Comment: IG% - Immature Granulocytes (promyelocytes, myelocytes andmetamyelocytes) > 1% indicates that a LEFT SHIFT is Present. Performed By: #### L 100.0100, L500.4050 ####[facility] [address] [place], [address] Lymphocytes/100 WBC (Bld) 22.7 % Normal 19-41 [facility] Comment on above: Performed By: #### L 100.0100, [id number] ####[facility] [address] [place], [address] MCH (RBC) [Entitic mass] 31.5 pg Normal 27.0-32.0 [facility] Comment on above: Performed By: #### L 100.0100, [id number] ####[facility] [address] [place], [address] MCHC (RBC) [Mass/Vol] 32.9 g/dL Normal 32-36 [facility] Comment on above: Performed By: #### L 100.0100, [id number] ####[facility] [address] [place], [address] MCV (RBC) [Entitic vol] 95.7 fL Normal 81-99 [facility] Comment on above: Performed By: #### L 100.0100, [id number] ####[facility] [address] [place], [address] Monocytes/100 WBC (Bld) 6.6 % Normal 0-10 [facility] Comment on above: Performed By: #### L 100.0100, [id number] ####[facility] [address] [place], [address] Neutrophils/100 WBC (Bld) 65.8 % Normal 47-70 [facility] Comment on above: Performed By: #### L 100.0100, [id number] ####[facility] [address] [place], [address] Nucleated RBC (Bld) [#/Vol] 0 10*3/uL Normal 0-5 [facility] Comment on above: Performed By: #### L 100.0100, [id number] ####[facility] [address] [place], [address] Platelet mean volume (Bld) [Entitic vol] 10.1 fL Normal 6.2-12.0 [facility] Comment on above: Performed By: #### L 100.0100, [id number] ####[facility] [address] [place], [address] Platelets (Bld) [#/Vol] 299 10*3/uL Normal 150-450 [facility] Comment on above: Performed By: #### L 100.0100, L500.4050 ####[facility] [address] [place], [address] RBC (Bld) [#/Vol] 3.94 10*6/uL Low 4.2-5.4 [facility] Comment on above: Performed By: #### L 100.0100, [id number] ####[facility] [address] [place], [address] RDW SD 44.1 fl High 35.1-43.9 [facility] Comment on above: Performed By: #### L 100.0100, [id number] ####[facility] [address] [place], [address] WBC (Bld) [#/Vol] 7.9 10*3/uL Normal 4.4-11.0 [facility] Comment on above: Performed By: #### L 100.0100, [id number] ####[facility] [address] [place], [address] Carbon dioxide, total [Moles /volume] in Central venous bloodOrdered By: Octavia Hector on 09-29-2024 CO2 [Moles/Vol] 25.5 mmol/L 21.0-32.0 [facility] Chloride assayOrdered By: Leanna Hector on 09-29-2024 Chloride [Moles/Vol] 102 mmol/L 98-108 [facility] Comprehensive Metabolic Prof ilon 09-29-2024 Albumin [Mass/Vol] 4.0 g/dL Normal 3.4-4.8 [facility] Comment on above: Performed By: #### L 100.0100, [id number] ####[facility] [address] [place], [address] Albumin/Globulin [Mass ratio] 1.7 {ratio} Normal 0.9-2.4 [facility] Comment on above: Performed By: #### L 100.0100, [id number] ####[facility] [address] [place], [address] ALK PHOS 56 U/L Normal 35-104 [facility] Comment on above: Performed By: #### L 100.0100, [id number] ####[facility] [address] [place], [address] ALT [Catalytic activity/Vol] 15 U/L Normal <=34 [facility] Comment on above: Performed By: #### L 100.0100, [id number] ####[facility] [address] [place], [address] AST [Catalytic activity/Vol] 21 U/L Normal <=31 [facility] Comment on above: Performed By: #### L 100.0100, [id number] ####[facility] [address] [place], [address] Bilirubin [Mass/Vol] 0.21 mg/dL Normal 0.00-1.30 [facility] Comment on above: Performed By: #### L 100.0100, [id number] ####[facility] [address] [place], [address] BUN/CRE 16.8 RATIO Normal 10-20 [facility] Comment on above: Performed By: #### L 100.0100, [id number] ####[facility] [address] [place], [address] Calcium [Mass/Vol] 9.1 mg/dL Normal 7.6-11.0 [facility] Comment on above: Performed By: #### L 100.0100, [id number] ####[facility] [address] [place], [address] Chloride [Moles/Vol] 102 mmol/L Normal 98-108 [facility] Comment on above: Performed By: #### L 100.0100, L500.4050 ####[facility] [address] [place], [address] CO2 [Moles/Vol] 25.5 mmol/L Normal 21.0-32.0 [facility] Comment on above: Performed By: #### L 100.0100, L500.4050 ####[facility] [address] [place], [address] Creatinine [Mass/Vol] 1.30 mg/dL High 0.70-1.20 [facility] Comment on above: Performed By: #### L 100.0100, L500.4050 ####[facility] [address] [place], [address] GAP 11 Normal 5-15 [facility] Comment on above: Performed By: #### L 100.0100, L500.4050 ####[facility] [address] [place], [address] GFR/1.73 sq M.predicted among non-blacks MDRD (S/P/Bld) [Vol rate/Area] 44 mL/min/{1.73_m2} Low >60 [facility] Comment on above: Result Comment: mL/m in/1.73m2 CKD-EPI Creatinine Equation (2020) Performed By: #### L 100.0100, L500.4050 ####[facility] [address] [place], [address] Globulin (S) [Mass/Vol] 2.4 g/dL Normal 2.2-4.2 [facility] Comment on above: Performed By: #### L 100.0100, L500.4050 ####[facility] [address] [place], [address] Glucose [Mass/Vol] 84 mg/dL Normal 70-99 [facility] Comment on above: Performed By: #### L 100.0100, L500.4050 ####[facility] [address] [place], [address] Potassium [Moles/Vol] 3.7 mmol/L Normal 3.3-5.1 [facility] Comment on above: Performed By: #### L 100.0100, L500.4050 ####[facility] [address] [place], [address] Sodium [Moles/Vol] 138 mmol/L Normal 133-145 [facility] Comment on above: Performed By: #### L 100.0100, L500.4050 ####[facility] [address] [place], [address] T PROT 6.5 g/dL Normal 5.9-8.4 [facility] Comment on above: Performed By: #### L 100.0100, L500.4050 ####[facility] [address] [place], [address] Urea nitrogen [Mass/Vol] 22 mg/dL High 4-19 [facility] Comment on above: Performed By: #### L 100.0100, L500.4050 ####[facility] [address] [place], [address] Eosinophil percentageOrdered By: Octavia Hector on 09-29-2024 Eosinophils/100 WBC (Bld) 3.7 % 0-5 [facility] Erythrocyte distribution wid th ratioOrdered By: Octavia Hector on 09-29-2024 Erythrocyte distribution width (RBC) [Ratio] 12.6 % 11.6-14.6 [facility] Erythrocyte distribution wid th standard deviationOrdered By: Octavia Hector on 09-29-2024 Erythrocyte distribution width (RBC) [Ratio] 44.1 fl High 35.1-43.9 [facility] Glomerular filtration rate ( GFR) estimation/1.73 sq m using serum, plasma, or whole bOrdered By: Octavia Hector on 09-29-2024 GFR/1.73 sq M.predicted among non-blacks MDRD (S/P/Bld) [Vol rate/Area] 44 mL/min/{1.73_m2} Low >60 [facility] Comment on above: mL/min/1.73m2 CKD-EP I Creatinine Equation (2020) Hematocrit Auto (Bld) [Volum e fraction]Ordered By: Octavia Hector on 09-29-2024 Hematocrit (Bld) [Volume fraction] 37.7 % 37-47 [facility] Hemoglobin measurementOrdere d By: Octavia Hector on 09-29-2024 Hemoglobin (Bld) [Mass/Vol] 12.4 g/dL 12.0-15.0 [facility] Immature granulocytes/100 WB C Auto (Bld)Ordered By: Octavia Hector on 09-29-2024 Immature granulocytes/100 WBC (Bld) 0.600 % 0.0-0.9 [facility] Comment on above: IG% - Immature Granu locytes (promyelocytes, myelocytes and metamyelocytes) > 1% indicates that a LEFT SHIFT is Present. Laboratory - Chemistry and C hemistry - challengeOrdered By: Octavia Hector on 09-29-2024 AST [Catalytic activity/Vol] 21 U/L <32 [facility] MCV (mean corpuscular volume ) determinationOrdered By: Octavia Hector on 09-29-2024 MCV (RBC) [Entitic vol] 95.7 fL 81-99 [facility] Mean corpuscular hemoglobin (MCH) determinationOrdered By: Octavia Hector on 09-29-2024 MCH (RBC) [Entitic mass] 31.5 pg 27.0-32.0 [facility] Mean corpuscular hemoglobin concentration (MCHC) determinationOrdered By: Octavia Hector on 09-29-2024 MCHC (RBC) [Mass/Vol] 32.9 g/dL 32-36 [facility] Mean platelet volume determi nationOrdered By: Octavia Hector on 09-29-2024 Platelet mean volume (Bld) [Entitic vol] 10.1 fL 6.2-12.0 [facility] Monocyte percentageOrdered B y: Octavia Hector on 09-29-2024 Monocytes/100 WBC (Bld) 6.6 % 0-10 [facility] Neutrophil percentageOrdered By: Octavia Hector on 09-29-2024 Neutrophils/100 WBC (Bld) 65.8 % 47-70 [facility] Nucleated red blood cell per centageOrdered By: Octavia Hector on 09-29-2024 Nucleated RBC/100 WBC (Bld) [Ratio] 0 % 0-5 [facility] Platelet countOrdered By: Leanna Hector on 09-29-2024 Platelets (Bld) [#/Vol] 299 10*3/uL 150-450 [facility] Potassium measurement (mass/ volume)Ordered By: Octavia Hector on 09-29-2024 Potassium (Unsp spec) [Mass/Vol] 3.7 mmol/L 3.3-5.1 [facility] RBC Auto (Bld) [#/Vol]Ordere d By: Octavia Hector on 09-29-2024 RBC (Bld) [#/Vol] 3.94 10*6/uL Low 4.2-5.4 [facility] Serum creatinine measurement (mass/volume)Ordered By: Octavia Hector on 09-29-2024 Creatinine [Mass/Vol] 1.30 mg/dL High 0.70-1.20 [facility] Serum globulin measurementOr dered By: Octavia Hector on 09-29-2024 Globulin (S) [Mass/Vol] 2.4 g/dL 2.2-4.2 [facility] Serum glucose measurement (m ass/volume)Ordered By: Octavia Hector on 09-29-2024 Glucose [Mass/Vol] 84 mg/dL 70-99 [facility] Serum or plasma alanine villasenor otransferase (ALT) measurementOrdered By: Octavia Hector on 09-29-2024 ALT [Catalytic activity/Vol] 15 U/L <35 [facility] Serum or plasma albumin breana urement (mass/volume)Ordered By: Octavia Hector on 09-29-2024 Albumin [Mass/Vol] 4.0 g/dL 3.4-4.8 [facility] Serum or plasma albumin/glob ulin mass ratioOrdered By: Octavia Hector on 09-29-2024 Albumin/Globulin [Mass ratio] 1.7 {ratio} 0.9-2.4 [facility] Serum or plasma alkaline beau sphatase measurementOrdered By: Octavia Hector on 09-29-2024 ALP [Catalytic activity/Vol] 56 U/L 35-104 [facility] Serum or plasma calcium breana urement (mass/volume)Ordered By: Octavia Hector on 09-29-2024 Calcium [Mass/Vol] 9.1 mg/dL 7.6-11.0 [facility] Serum or plasma urea nitroge n measurement (mass/volume)Ordered By: Octavia Hector on 09-29-2024 Urea nitrogen [Mass/Vol] 22 mg/dL High 4-19 [facility] Sodium levelOrdered By: Ron Hector on 09-29-2024 Sodium [Moles/Vol] 138 mmol/L 133-145 [facility] Total proteinOrdered By: Jodi Hector on 09-29-2024 Protein [Mass/Vol] 6.5 g/dL 5.9-8.4 [facility] White blood cell (WBC) count Ordered By: Octavia Hector on 09-29-2024 WBC (Bld) [#/Vol] 7.9 10*3/uL 4.4-11.0 [facility] Internal Medicine Office Vis iton 08-02-2024 Internal Medicine Office Visit Normal [facility] Urine Cultureon 07-07-2024 URC ADD ON Mixed Gram Pos Gram Neg Org [place] Count 1000-10,000 MIXC Mixed contaminants. Submit a new specimen if indicated. Normal [facility] Comment on above: Performed By: #### M 100.1303 ####[facility] [address] [place], [address] Absolute lymphocyte countOrd ered By: Octavia Hector on 07-05-2024 Lymphocytes Auto (Unsp spec) [#/Vol] 1.36 10*3/uL 0.83-4.51 [facility] Absolute neutrophil countOrd ered By: Octavia Hector on 07-05-2024 Neutrophils (Bld) [#/Vol] 6.2 10*3/uL 2.0-7.7 [facility] Anion gap in Serum or Plasma Ordered By: Octavia Hector on 07-05-2024 Anion gap [Moles/Vol] 11 mmol/L 5- [facility] Automated lymphocyte count a s percentage of total leukocytesOrdered By: Octavia Hector on 07-05-2024 Lymphocytes/100 WBC Auto (Unsp spec) 16.3 % Low - [facility] BUN/creatinine ratioOrdered By: Octavia Hector on 07-05-2024 Urea nitrogen/Creatinine [Mass ratio] 12.3 mg/mg 10- [facility] Basophil percentageOrdered B y: Octavia Hector on 07-05-2024 Basophils/100 WBC (Bld) 0.4 % 0-1 [facility] Bilirubin Test strip Ql (U)O rdered By: Chris Montelongo on 07-05-2024 Bilirubin Ql (U) Negative Negative [facility] Bilirubin, totalOrdered By: Octavia Hector on 07-05-2024 Bilirubin [Mass/Vol] 0.32 mg/dL 0.00-1.30 [facility] CBC W/Diff, Automatedon 06-26 Absolute Lymph 1.36 X10 3/uL Normal 0.83-4.51 [facility] Comment on above: Performed By: #### L 500.4050, L100.0100 ####[facility] [address] [place], [address] Absolute Neut 6.2 X10 3/uL Normal 2.0-7.7 [facility] Comment on above: Performed By: #### L 500.4050, L100.0100 ####[facility] [address] [place], [address] Basophils/100 WBC (Bld) 0.4 % Normal 0-1 [facility] Comment on above: Performed By: #### L 500.4050, L100.0100 ####[facility] [address] [place], [address] Eosinophils/100 WBC (Bld) 1.7 % Normal 0-5 [facility] Comment on above: Performed By: #### L 500.4050, L100.0100 ####[facility] [address] [place], [address] Erythrocyte distribution width (RBC) [Ratio] 13.2 % Normal 11.6-14.6 [facility] Comment on above: Performed By: #### L 500.4050, L100.0100 ####[facility] [address] [place], [address] Hematocrit (Bld) [Volume fraction] 36.3 % Low 37-47 [facility] Comment on above: Performed By: #### L 500.4050, L100.0100 ####[facility] [address] [place], [address] Hemoglobin (Bld) [Mass/Vol] 12.0 g/dL Normal 12.0-15.0 [facility] Comment on above: Performed By: #### L 500.4050, L100.0100 ####[facility] [address] [place], [address] IG% 1.000 High 0.0-0.9 [facility] Comment on above: Result Comment: IG% - Immature Granulocytes (promyelocytes, myelocytes andmetamyelocytes) > 1% indicates that a LEFT SHIFT is Present. Performed By: #### L 500.4050, L100.0100 ####[facility] [address] [place], [address] Lymphocytes/100 WBC (Bld) 16.3 % Low 19-41 [facility] Comment on above: Performed By: #### L 500.4050, L100.0100 ####[facility] [address] [place], [address] MCH (RBC) [Entitic mass] 32.2 pg High 27.0-32.0 [facility] Comment on above: Performed By: #### L 500.4050, L100.0100 ####[facility] [address] [place], [address] MCHC (RBC) [Mass/Vol] 33.1 g/dL Normal 32-36 [facility] Comment on above: Performed By: #### L 500.4050, L100.0100 ####[facility] [address] [place], [address] MCV (RBC) [Entitic vol] 97.3 fL Normal 81-99 [facility] Comment on above: Performed By: #### L 500.4050, L100.0100 ####[facility] [address] [place], [address] Monocytes/100 WBC (Bld) 6.3 % Normal 0-10 [facility] Comment on above: Performed By: #### L 500.4050, L100.0100 ####[facility] [address] [place], [address] Neutrophils/100 WBC (Bld) 74.3 % High 47-70 [facility] Comment on above: Performed By: #### L 500.4050, L100.0100 ####[facility] [address] [place], [address] Nucleated RBC (Bld) [#/Vol] 0 10*3/uL Normal 0-5 [facility] Comment on above: Performed By: #### L 500.4050, L100.0100 ####[facility] [address] [place], [address] Platelet mean volume (Bld) [Entitic vol] 9.9 fL Normal 6.2-12.0 [facility] Comment on above: Performed By: #### L 500.4050, L100.0100 ####[facility] [address] [place], [address] Platelets (Bld) [#/Vol] 289 10*3/uL Normal 150-450 [facility] Comment on above: Performed By: #### L 500.4050, L100.0100 ####[facility] [address] [place], [address] RBC (Bld) [#/Vol] 3.73 10*6/uL Low 4.2-5.4 [facility] Comment on above: Performed By: #### L 500.4050, L100.0100 ####[facility] [address] [place], [address] RDW SD 47.5 fl High 35.1-43.9 [facility] Comment on above: Performed By: #### L 500.4050, L100.0100 ####[facility] [address] [place], [address] WBC (Bld) [#/Vol] 8.4 10*3/uL Normal 4.4-11.0 [facility] Comment on above: Performed By: #### L 500.4050, L100.0100 ####[facility] [address] [place], [address] Carbon dioxide, total [Moles /volume] in Central venous bloodOrdered By: Octavia Hector on 07-05-2024 CO2 [Moles/Vol] 22.9 mmol/L 21.0-32.0 [facility] Chloride assayOrdered By: Leanna Hector on 07-05-2024 Chloride [Moles/Vol] 105 mmol/L 98-108 [facility] Comprehensive Metabolic Prof ilon 07-05-2024 Albumin [Mass/Vol] 3.8 g/dL Normal 3.4-4.8 [facility] Comment on above: Performed By: #### L 500.4050, L100.0100 ####[facility] [address] [place], [address] Albumin/Globulin [Mass ratio] 1.5 {ratio} Normal 0.9-2.4 [facility] Comment on above: Performed By: #### L 500.4050, L100.0100 ####[facility] [address] [place], [address] ALK PHOS 53 U/L Normal 35-104 [facility] Comment on above: Performed By: #### L 500.4050, L100.0100 ####[facility] [address] [place], [address] ALT [Catalytic activity/Vol] 14 U/L Normal <=34 [facility] Comment on above: Performed By: #### L 500.4050, L100.0100 ####[facility] [address] [place], [address] AST [Catalytic activity/Vol] 19 U/L Normal <=31 [facility] Comment on above: Performed By: #### L 500.4050, L100.0100 ####[facility] [address] [place], [address] Bilirubin [Mass/Vol] 0.32 mg/dL Normal 0.00-1.30 [facility] Comment on above: Performed By: #### L 500.4050, L100.0100 ####[facility] [address] [place], [address] BUN/CRE 12.3 RATIO Normal 10-20 [facility] Comment on above: Performed By: #### L 500.4050, L100.0100 ####[facility] [address] [place], [address] Calcium [Mass/Vol] 8.6 mg/dL Normal 7.6-11.0 [facility] Comment on above: Performed By: #### L 500.4050, L100.0100 ####[facility] [address] [place], [address] Chloride [Moles/Vol] 105 mmol/L Normal 98-108 [facility] Comment on above: Performed By: #### L 500.4050, L100.0100 ####[facility] [address] [place], [address] CO2 [Moles/Vol] 22.9 mmol/L Normal 21.0-32.0 [facility] Comment on above: Performed By: #### L 500.4050, L100.0100 ####[facility] [address] [place], [address] Creatinine [Mass/Vol] 1.14 mg/dL Normal 0.70-1.20 [facility] Comment on above: Performed By: #### L 500.4050, L100.0100 ####[facility] [address] [place], [address] GAP 11 Normal 5-15 [facility] Comment on above: Performed By: #### L 500.4050, L100.0100 ####[facility] [address] [place], [address] GFR/1.73 sq M.predicted among non-blacks MDRD (S/P/Bld) [Vol rate/Area] 52 mL/min/{1.73_m2} Low >60 [facility] Comment on above: Result Comment: mL/m in/1.73m2 CKD-EPI Creatinine Equation (2020) Performed By: #### L 500.4050, L100.0100 ####[facility] [address] [place], [address] Globulin (S) [Mass/Vol] 2.5 g/dL Normal 2.2-4.2 [facility] Comment on above: Performed By: #### L 500.4050, L100.0100 ####[facility] [address] [place], [address] Glucose [Mass/Vol] 95 mg/dL Normal 70-99 [facility] Comment on above: Performed By: #### L 500.4050, L100.0100 ####[facility] [address] [place], [address] Potassium [Moles/Vol] 4.1 mmol/L Normal 3.3-5.1 [facility] Comment on above: Performed By: #### L 500.4050, L100.0100 ####[facility] [address] [place], [address] Sodium [Moles/Vol] 138 mmol/L Normal 133-145 [facility] Comment on above: Performed By: #### L 500.4050, L100.0100 ####[facility] [address] [place], [address] T PROT 6.4 g/dL Normal 5.9-8.4 [facility] Comment on above: Performed By: #### L 500.4050, L100.0100 ####[facility] [address] [place], [address] Urea nitrogen [Mass/Vol] 14 mg/dL Normal 4-19 [facility] Comment on above: Performed By: #### L 500.4050, L100.0100 ####[facility] [address] [place], [address] Eosinophil percentageOrdered By: Octavia Hector on 07-05-2024 Eosinophils/100 WBC (Bld) 1.7 % 0-5 [facility] Epithelial cells.squamous LM Ql (Urine sed)Ordered By: Chris Montelongo on 07-05-2024 Epithelial cells.squamous LM.HPF (Urine sed) [#/Area] 0 /[HPF] 5-10 [facility] Erythrocyte distribution wid th ratioOrdered By: Octavai Hector on 07-05-2024 Erythrocyte distribution width (RBC) [Ratio] 13.2 % 11.6-14.6 [facility] Erythrocyte distribution wid th standard deviationOrdered By: Octavia Hector on 07-05-2024 Erythrocyte distribution width (RBC) [Entitic vol] 47.5 fL High 35.1-43.9 [facility] Erythrocyte distribution width (RBC) [Ratio] 47.5 fl High 35.1-43.9 [facility] GFR/1.73 sq M.predicted aida g non-blacks MDRD (S/P/Bld) [Vol rate/Area]Ordered By: Octavia Hector on 07-05-2024 Estimated GFR (MDRD) Non-Af Amer 52 Low >60 [facility] Comment on above: mL/min/1.73m2 CKD-EP I Creatinine Equation (2020) Glomerular filtration rate ( GFR) estimation/1.73 sq m using serum, plasma, or whole bOrdered By: Octavia Hector on 07-05-2024 GFR/1.73 sq M.predicted among non-blacks MDRD (S/P/Bld) [Vol rate/Area] 52 mL/min/{1.73_m2} Low >60 [facility] Comment on above: mL/min/1.73m2 CKD-EP I Creatinine Equation (2020) Glucose Ql (U)Ordered By: Hamlet Montelongo on 07-05-2024 Urine Glucose (UA) Normal mg/dl Normal [facility] Hematocrit Auto (Bld) [Volum e fraction]Ordered By: Octavia Hector on 07-05-2024 Hematocrit (Bld) [Volume fraction] 36.3 % Low 37-47 [facility] Hemoglobin measurementOrdere d By: Octavia Hector on 07-05-2024 Hemoglobin (Bld) [Mass/Vol] 12.0 g/dL 12.0-15.0 [facility] Hyaline casts LM.LPF (Urine sed) [#/Area]Ordered By: Chris Montelongo on 07-05-2024 Hyaline casts (Urine sed) [#/Area] 10 /[LPF] 0-5 [facility] Hyaline casts LM Ql (Urine sed) 10-25 SEEN /lpf 0-5 [facility] Immature granulocytes/100 WB C Auto (Bld)Ordered By: Octavia Hector on 07-05-2024 Immature granulocytes/100 WBC (Bld) 1.000 % High 0.0-0.9 [facility] Comment on above: IG% - Immature Granu locytes (promyelocytes, myelocytes and metamyelocytes) > 1% indicates that a LEFT SHIFT is Present. Ketones Test strip Ql (U)Ord ered By: Chris Montelongo on 07-05-2024 Ketones Ql (U) Negative Negative [facility] Laboratory - Chemistry and C hemistry - challengeOrdered By: Octavia Hector on 07-05-2024 AST [Catalytic activity/Vol] 19 U/L <32 [facility] Lymphocytes Auto (Unsp spec) [#/Vol]Ordered By: Octavia Hector on 07-05-2024 Lymphocytes (Bld) [#/Vol] 1.36 10*3/uL 0.83-4.51 [facility] Lymphocytes/100 WBC Auto (Un sp spec)Ordered By: Octavia Hector on 07-05-2024 Lymphocytes/100 WBC (Bld) 16.3 % Low 19-41 [facility] MCV (mean corpuscular volume ) determinationOrdered By: Octavia Hector on 07-05-2024 MCV (RBC) [Entitic vol] 97.3 fL 81-99 [facility] Mean corpuscular hemoglobin (MCH) determinationOrdered By: Octavia Hector on 07-05-2024 MCH (RBC) [Entitic mass] 32.2 pg High 27.0-32.0 [facility] Mean corpuscular hemoglobin concentration (MCHC) determinationOrdered By: Octavia Hector on 07-05-2024 MCHC (RBC) [Mass/Vol] 33.1 g/dL 32-36 [facility] Mean platelet volume determi nationOrdered By: Octavia Hector on 07-05-2024 Platelet mean volume (Bld) [Entitic vol] 9.9 fL 6.2-12.0 [facility] Microscopic analysis of urin e for red blood cells (RBC)Ordered By: Chris Montelongo on 07-05-2024 Microscopic analysis of urine for red blood cells (RBC) 0-5 SEEN /hpf 0-5 [facility] Urine RBC 0-5 SEEN /hpf 0-5 [facility] Monocyte percentageOrdered B y: Octavia Hector on 07-05-2024 Monocytes/100 WBC (Bld) 6.3 % 0-10 [facility] Mucus LM Ql (Urine sed)Order ed By: Chris Montelongo on 07-05-2024 Mucus Ql (Urine sed) 0 SEEN /hpf [facility] Neutrophil percentageOrdered By: Octavia Hector on 07-05-2024 Neutrophils/100 WBC (Bld) 74.3 % High 47-70 [facility] Nitrite Test strip Ql (U)Ord ered By: Chris Montelongo on 07-05-2024 Nitrite Ql (U) Negative Negative [facility] Nucleated red blood cell per centageOrdered By: Octavia Hector on 07-05-2024 Nucleated RBC/100 WBC (Bld) [Ratio] 0 % 0-5 [facility] Platelet countOrdered By: Leanna Hector on 07-05-2024 Platelets (Bld) [#/Vol] 289 10*3/uL 150-450 [facility] Potassium (Unsp spec) [Mass/ Vol]Ordered By: Octavia Hector on 07-05-2024 Potassium [Moles/Vol] 4.1 mmol/L 3.3-5.1 [facility] Potassium measurement (mass/ volume)Ordered By: Octaiva Hector on 07-05-2024 Potassium (Unsp spec) [Mass/Vol] 4.1 mmol/L 3.3-5.1 [facility] Protein Test strip Ql (U)Ord ered By: Chris Montelongo on 07-05-2024 Protein Ql (U) 15 mg/dl High Negative [facility] RBC Auto (Bld) [#/Vol]Ordere d By: Octavia Hector on 07-05-2024 RBC (Bld) [#/Vol] 3.73 10*6/uL Low 4.2-5.4 [facility] Serum creatinine measurement (mass/volume)Ordered By: Octavia Hector on 07-05-2024 Creatinine [Mass/Vol] 1.14 mg/dL 0.70-1.20 [facility] Serum globulin measurementOr dered By: Octavia Hector on 07-05-2024 Globulin (S) [Mass/Vol] 2.5 g/dL 2.2-4.2 [facility] Serum glucose measurement (m ass/volume)Ordered By: Octavia Hector on 07-05-2024 Glucose [Mass/Vol] 95 mg/dL 70-99 [facility] Serum or plasma alanine villasenor otransferase (ALT) measurementOrdered By: Octavia Hector on 07-05-2024 ALT [Catalytic activity/Vol] 14 U/L <35 [facility] Serum or plasma albumin breana urement (mass/volume)Ordered By: Octavia Hector on 07-05-2024 Albumin [Mass/Vol] 3.8 g/dL 3.4-4.8 [facility] Serum or plasma albumin/glob ulin mass ratioOrdered By: Octavia Hector on 07-05-2024 Albumin/Globulin [Mass ratio] 1.5 {ratio} 0.9-2.4 [facility] Serum or plasma alkaline beau sphatase measurementOrdered By: Octavia Hector on 07-05-2024 ALP [Catalytic activity/Vol] 53 U/L 35-104 [facility] Serum or plasma calcium breana urement (mass/volume)Ordered By: Octavia Hector on 07-05-2024 Calcium [Mass/Vol] 8.6 mg/dL 7.6-11.0 [facility] Serum or plasma urea nitroge n measurement (mass/volume)Ordered By: Octavia Hector on 07-05-2024 Urea nitrogen [Mass/Vol] 14 mg/dL 4-19 [facility] Sodium levelOrdered By: Ron Hector on 07-05-2024 Sodium [Moles/Vol] 138 mmol/L 133-145 [facility] Squamous epithelial cells de tection in urine sediment by light microscopyOrdered By: Chris Montelongo on 07-05-2024 Epithelial cells.squamous LM Ql (Urine sed) 0-5 SEEN /hpf 5-10 [facility] Total proteinOrdered By: Jodi Hector on 07-05-2024 Protein [Mass/Vol] 6.4 g/dL 5.9-8.4 [facility] Urinalysis, Completeon 07-05 CAST,HYALINE 10-25 SEEN Normal 0-5 [facility] Comment on above: Order Comment: INGRID CTOR TO SPECIFY Performed By: #### L 400.0001 ####[facility] [address] [place], [address] EPI,SQUAMOUS 0-5 SEEN Normal 5-10 [facility] Comment on above: Order Comment: INGRID CTOR TO SPECIFY Performed By: #### L 400.0001 ####[facility] [address] [facility] [address] RBC 0-5 SEEN Normal 0-5 [facility] Comment on above: Order Comment: INGRID CTOR TO SPECIFY Performed By: #### L 400.0001 ####[facility] [address] [place], [address] WBC 0-5 SEEN Normal 0-5 [facility] Comment on above: Order Comment: INGRID CTOR TO SPECIFY Performed By: #### L 400.0001 ####[facility] [address] [place], [address] BACTERIA 0 SEEN Normal None Seen [facility] Comment on above: Order Comment: INGRID CTOR TO SPECIFY Performed By: #### L 400.0001 ####[facility] [address] [place], [address] Mucus Ql (Urine sed) 0 SEEN Normal [facility] Comment on above: Order Comment: INGRID CTOR TO SPECIFY Performed By: #### L 400.0001 ####[facility] [address] [facility] [address] Urine blood detectionOrdered By: Chris Montelongo on 07-05-2024 Urine Occult Blood 10 /ul High Negative [facility] Urine clarityOrdered By: Braxton Montelongo on 07-05-2024 Clarity (U) Clear Clear [facility] Urine color determinationOrd ered By: Chris Montelongo on 07-05-2024 Color (U) Yellow Yellow [facility] Urine cultureOrdered By: Braxton Montelongo on 07-05-2024 Bacteria identified Cx Nom (U) Mixed Gram Pos & Gram Neg Org Abnormal [facility] Urine glucose detectionOrder ed By: Chris Montelongo on 07-05-2024 Glucose Ql (U) Normal mg/dl Normal [facility] Urine leukocyte esterase det ection by dipstickOrdered By: Chris Montelongo on 07-05-2024 Leukocyte esterase Test strip Ql (U) 25 /ul High Negative [facility] Urine pHOrdered By: Lamar Montelongo on 07-05-2024 pH (U) 6.5 [pH] 5.0 - 8.0 [facility] Urine sediment bacteria coun t by microscopy (number/high power field)Ordered By: Chris Montelongo on 07-05-2024 Bacteria LM.HPF (Urine sed) [#/Area] 0 /[HPF] None Seen [facility] Urine specific gravity measu rementOrdered By: Chris Montelongo on 07-05-2024 Specific gravity (U) [Rel density] 1.010 1.002-1.030 [facility] Urine urobilinogen measureme ntOrdered By: Chris Montelongo on 07-05-2024 Urobilinogen Ql (U) Normal mg/dl Normal [facility] Urobilinogen Ql (U)Ordered B y: Chris Montelongo on 07-05-2024 Urine Urobilinogen Normal mg/dl Normal [facility] White blood cell (WBC) count Ordered By: Octavia Hector on 07-05-2024 WBC (Bld) [#/Vol] 8.4 10*3/uL 4.4-11.0 [facility] White blood cell countOrdere d By: Chris Montelongo on 07-05-2024 Urine WBC 0-5 SEEN /hpf 0-5 [facility] White blood cell count 0-5 SEEN /hpf 0-5 [facility] Brain W/WO Contraston 2024 Brain W/WO Contrast Normal [facility] Magnetic resonance imaging r eportOrdered By: Jennifer Lyle on 07-01-2024 Study report [facility] Imaging Services [address] [place] [address] Brain W/WO Contrast MR#: [id number] Acct: [id number] Name: KIEL ENGLISH Rep #: [id number] : 1955 F 68 From: Nancy Lyle MD PCP: Dr. Chris Montelongo MD Status: R EG CLI Study:Brain W/WO Contrast Date of Exam: 07/01/24 Exam# [id number] Ordering Dr: Jennifer Simental MD EXAM: MRI brain with and without contrast. CLINICAL HISTORY: 3 MO H/O DAILY HEADACHES COMPARISON: 01/03/2023. Only the images are available for review; the report is not available for review at the time of dictation. TECHNIQUE: Multisequence multiplanar MRI brain was performed with and without intravenous contrast. Contrast: 19 mL Clariscan FINDINGS: Cerebrum: Very mild supratentorial white matter abnormalities, nonspecific but similar to prior and compatible with chronic microvascular ischemic changes. No acute infarct, appreciable intracranial hemorrhage, mass, or mass effect. Midline structures unremarkable. Cerebellum: Unremarkable. No evidence of cerebellar tonsillar herniation. Brainstem: Unremarkable. Ventricles/extra-axial spaces: Unremarkable. No hydrocephalus. Major flow voids: Grossly unremarkable within limits of technique. Paranasal sinuses: Trace to mild anterior ethmoid air cell mucosal thickening. Scalp/calvarium: Unremarkable. Orbits: Cataract surgery. Other: No abnormal enhancement. MRI/Brain W/WO Contrast IMPRESSION: 1. No acute abnormality or findings which might explain the patient's symptoms. 2. Trace to mild anterior ethmoid paranasal sinus disease. 3. Additional description as above. Reading Location: [facility] CC: Dr. Chris Montelongo MD; Dr. Jennifer Simental MD ~ Ham Sawyer: Signed [facility] Oncology Visit Reporton Oncology Visit Report Normal [facility] Low Dose CT Lung Screeningon 06-01-[address] Lung Screening Normal [facility] Oncology Visit Reporton Oncology Visit Report Normal [facility] SCREEN MAMM (CAD) W/BHAVIK UNI Eitan 06-01-2024 SCREEN MAMM (CAD) W/BHAVIK UNI R Normal [facility] Echo Completeon 05-10-2024 Echo Complete Normal [facility] 66-FM-Ovugvox DOrdered By: Kay Montelongo on 05-05-2024 Vitamin D 25-Hydroxy 26.8 ng/mL [facility] Comment on above: Vitamin D 25(OH) Sta tus Range Deficiency <20 ng/mL (50nmol/L) Insufficiency 20 - 30 ng/mL (50 - 75 nmol/L) Sufficiency 30 - 100 ng/mL (75 - 250 nmol/L) Toxicity >100 ng/mL (>250 nmol/L) Basic Metabolic Profile (BMP )on 05-05-2024 BUN/CRE 14.5 RATIO Normal 10-20 [facility] Comment on above: Performed By: #### L 501.9985, L506.0400, L500.2500, L501.9520, L506.1000 ####[facility] [address] [place], [address] CA,Total 9.0 mg/dL Normal 8.5-10.1 [facility] Comment on above: Performed By: #### L 501.9985, L506.0400, L500.2500, L501.9520, L506.1000 ####[facility] [address] [place], [address] Chloride [Moles/Vol] 106 mmol/L Normal 98-107 [facility] Comment on above: Performed By: #### L 501.9985, L506.0400, L500.2500, L501.9520, L506.1000 ####[facility] [address] [place], [address] CO2 [Moles/Vol] 30.0 mmol/L Normal 21.0-32.0 [facility] Comment on above: Performed By: #### L 501.9985, L506.0400, L500.2500, L501.9520, L506.1000 ####[facility] [address] [place], [address] Creatinine [Mass/Vol] 1.17 mg/dL High 0.55-1.02 [facility] Comment on above: Result Comment: The validity of the calculated GFR GFRAA in patients over70 years has not been determined. Clinical correlation isessential. Performed By: #### L 501.9985, L506.0400, L500.2500, L501.9520, L506.1000 ####[facility] [address] [place], [address] EST GFR - AA 59 mL/min Low >60 [facility] Comment on above: Result Comment: Afri can Lebanese GFR Calc Performed By: #### L 501.9985, L506.0400, L500.2500, L501.9520, L506.1000 ####[facility] [address] [place], [address] GAP 6 Normal 5-15 [facility] Comment on above: Performed By: #### L 501.9985, L506.0400, L500.2500, L501.9520, L506.1000 ####[facility] [address] [place], [address] GFR/1.73 sq M.predicted among non-blacks MDRD (S/P/Bld) [Vol rate/Area] 49 mL/min/{1.73_m2} Low >60 [facility] Comment on above: Result Comment: Non- GFR Calc Performed By: #### L 501.9985, L506.0400, L500.2500, L501.9520, L506.1000 ####[facility] [address] [place], [address] Glucose [Mass/Vol] 92 mg/dL Normal 74-106 [facility] Comment on above: Performed By: #### L 501.9985, L506.0400, L500.2500, L501.9520, L506.1000 ####[facility] [address] [place], [address] Potassium [Moles/Vol] 3.7 mmol/L Normal 3.5-5.1 [facility] Comment on above: Performed By: #### L 501.9985, L506.0400, L500.2500, L501.9520, L506.1000 ####[facility] [address] [place], [address] Sodium [Moles/Vol] 142 mmol/L Normal 136-145 [facility] Comment on above: Performed By: #### L 501.9985, L506.0400, L500.2500, L501.9520, L506.1000 ####[facility] [address] [place], [address] Urea nitrogen [Mass/Vol] 17 mg/dL Normal 7-18 [facility] Comment on above: Performed By: #### L 501.9985, L506.0400, L500.2500, L501.9520, L506.1000 ####[facility] [address] [place], [address] Blood urea nitrogen (BUN)/cr eatinine ratioOrdered By: Chris Montelongo on 05-05-2024 Urea nitrogen/Creatinine [Mass ratio] 14.5 mg/mg 10-20 [facility] Carbon dioxide measurementOr dered By: Chris Montelongo on 05-05-2024 CO2 [Moles/Vol] 30.0 mmol/L 21.0-32.0 [facility] Chloride measurementOrdered By: Chris Montelongo on 05-05-2024 Chloride [Moles/Vol] 106 mmol/L 98-107 [facility] Direct serum free thyroxine (FT4) measurementOrdered By: Chris Montelongo on 05-05-2024 Free T4 [Mass/Vol] 1.14 ng/dL 0.76-1.46 [facility] Estimated glomerular filtrat ion rate (GFR) AmericanOrdered By: Chris Montelongo on 05-05-2024 Estimated GFR (MDRD) Amer 59 mL/min Low >60 [facility] Comment on above: GFR Calc Glomerular filtration rate ( GFR) estimationOrdered By: Chris Montelongo on 05-05-2024 Estimated GFR (MDRD) Non-Af Amer 49 mL/min Low >60 [facility] Comment on above: Non- GFR Calc Glucose measurementOrdered B y: Chris Montelongo on 05-05-2024 Glucose [Mass/Vol] 92 mg/dL 74-106 [facility] Hemoglobin A1con 05-05-2024 HbA1c (Bld) [Mass fraction] 5.5 % Normal 3.8-5.6 [facility] Comment on above: Result Comment: Norm al < 5.7 % Prediabetic 5.7 - 6.4 % Diabetic >or= 6.5 % Please note range changes. Performed By: #### L 501.9985, L506.0400, L500.2500, L501.9520, L506.1000 ####[facility] [address] [place], [address] Hemoglobin A1c percentageOrd ered By: Chris Montelongo on 05-05-2024 HbA1c (Bld) [Mass fraction] 5.5 % 3.8-5.6 [facility] Comment on above: Normal < 5.7 % Predi abetic 5.7 - 6.4 % Diabetic >or= 6.5 % Please note range changes. Internal Medicine Office Vis iton 05-05-2024 Internal Medicine Office Visit Normal [facility] Potassium measurementOrdered By: Chris Montelongo on 05-05-2024 Potassium [Moles/Vol] 3.7 mmol/L 3.5-5.1 [facility] Serum anion gap measurementO rdered By: Chris Montelongo on 05-05-2024 Anion gap [Moles/Vol] 6 mmol/L 5-15 [facility] Serum or plasma calcium breana urement (mass/volume)Ordered By: Chris Montelongo on 05-05-2024 Calcium [Mass/Vol] 9.0 mg/dL 8.5-10.1 [facility] Serum or plasma creatinine m easurement (mass/volume)Ordered By: Chris Montelongo on 05-05-2024 Creatinine [Mass/Vol] 1.17 mg/dL High 0.55-1.02 [facility] Comment on above: The validity of the calculated GFR & GFRAA in patients over 70 years has not been determined. Clinical correlation is essential. Serum or plasma urea nitroge n measurement (mass/volume)Ordered By: Chris Montelongo on 05-05-2024 Urea nitrogen [Mass/Vol] 17 mg/dL 7-18 [facility] Sodium levelOrdered By: Nicolas Montelongo on 05-05-2024 Sodium [Moles/Vol] 142 mmol/L 136-145 [facility] T4 Free Directon 05-05-2024 T4 FREE DIRECT 1.14 ng/dL Normal 0.76-1.46 [facility] Comment on above: Performed By: #### L 501.9985, L506.0400, L500.2500, L501.9520, L506.1000 ####[facility] [address] [place], [place], [id number] TSH QnOrdered By: Chris Montelongo on 05-05-2024 Thyroid Stimulating Hormone (TSH) 1.930 uIU/mL 0.358-3.740 [facility] Thyroid Stim Hormone (TSH)on 05-05-2024 TSH 1.930 uIU/mL Normal 0.358-3.740 [facility] Comment on above: Performed By: #### L 501.9985, L506.0400, L500.2500, L501.9520, L506.1000 ####[facility] [address] [place], [address] Vitamin D,25 Hydroxyon 05-05 Vitamin D 25-OH 26.8 ng/mL Normal [facility] Comment on above: Result Comment: Carol min D 25(OH) Status Range Deficiency <20 ng/mL (50nmol/L) Insufficiency 20 - 30 ng/mL (50 - 75 nmol/L) Sufficiency 30 - 100 ng/mL (75 - 250 nmol/L) Toxicity >100 ng/mL (>250 nmol/L) Performed By: #### L 501.9985, L506.0400, L500.2500, L501.9520, L506.1000 ####[facility] [address] [place], [place], [id number] Cardiology Visit Reporton Cardiology Visit Report Normal [facility] Plastic Surgery Visit Report on 04-09-2024 Plastic Surgery Visit Report Normal [facility] Plastic Surgery Visit Report on 04-02-2024 Plastic Surgery Visit Report Normal [facility] Absolute neutrophil countOrd ered By: Octavia Hector on 04-01-2024 Neutrophils (Bld) [#/Vol] 6.4 10*3/uL 2.0-7.7 [facility] Albumin to globulin ratioOrd ered By: Octavia Hector on 04-01-2024 Albumin/Globulin [Mass ratio] 1.2 {ratio} 0.9-2.4 [facility] Basophil percentageOrdered B y: Octavia Hector on 04-01-2024 Basophils/100 WBC (Bld) 0.6 % 0-1 [facility] Bilirubin, totalOrdered By: Octavia Hector on 04-01-2024 Bilirubin [Mass/Vol] 0.50 mg/dL 0.20-1.00 [facility] Comment on above: For patients on eltr ombopag therapy, use of Dimension [place] TBIL is not recommended. Blood urea nitrogen (BUN)/cr eatinine ratioOrdered By: Octavia Hector on 04-01-2024 Urea nitrogen/Creatinine [Mass ratio] 15.2 mg/mg 10-20 [facility] CBC W/Diff, Automatedon Absolute Lymph 2.06 X10 3/uL Normal 0.83-4.51 [facility] Comment on above: Performed By: #### L 100.0100, L500.4050 ####[facility] [address] [place], [address] Absolute Neut 6.4 X10 3/uL Normal 2.0-7.7 [facility] Comment on above: Performed By: #### L 100.0100, L500.4050 ####[facility] [address] [place], [address] Basophils/100 WBC (Bld) 0.6 % Normal 0-1 [facility] Comment on above: Performed By: #### L 100.0100, L500.4050 ####[facility] [address] [place], [address] Eosinophils/100 WBC (Bld) 1.7 % Normal 0-5 [facility] Comment on above: Performed By: #### L 100.0100, L500.4050 ####[facility] [address] [place], [address] Erythrocyte distribution width (RBC) [Ratio] 13.2 % Normal 11.6-14.6 [facility] Comment on above: Performed By: #### L 100.0100, L500.4050 ####[facility] [address] [place], [address] Hematocrit (Bld) [Volume fraction] 36.7 % Low 37-47 [facility] Comment on above: Performed By: #### L 100.0100, L500.4050 ####[facility] [address] [place], [address] Hemoglobin (Bld) [Mass/Vol] 11.4 g/dL Low 12.0-15.0 [facility] Comment on above: Performed By: #### L 100.0100, L500.4050 ####[facility] [address] [place], [address] IG% 1.700 High 0.0-0.9 [facility] Comment on above: Result Comment: IG% - Immature Granulocytes (promyelocytes, myelocytes andmetamyelocytes) > 1% indicates that a LEFT SHIFT is Present. Performed By: #### L 100.0100, L500.4050 ####[facility] [address] [place], [address] Lymphocytes/100 WBC (Bld) 21.3 % Normal 19-41 [facility] Comment on above: Performed By: #### L 100.0100, L500.4050 ####[facility] [address] [place], [address] MCH (RBC) [Entitic mass] 31.2 pg Normal 27.0-32.0 [facility] Comment on above: Performed By: #### L 100.0100, L500.4050 ####[facility] [address] [place], [address] MCHC (RBC) [Mass/Vol] 31.1 g/dL Low 32-36 [facility] Comment on above: Performed By: #### L 100.0100, L500.4050 ####[facility] [address] [place], [address] MCV (RBC) [Entitic vol] 100.5 fL High 81-99 [facility] Comment on above: Performed By: #### L 100.0100, L500.4050 ####[facility] [address] [place], [address] Monocytes/100 WBC (Bld) 8.3 % Normal 0-10 [facility] Comment on above: Performed By: #### L 100.0100, L500.4050 ####[facility] [address] [place], [address] Neutrophils/100 WBC (Bld) 66.4 % Normal 47-70 [facility] Comment on above: Performed By: #### L 100.0100, L500.4050 ####[facility] [address] [place], [address] Nucleated RBC (Bld) [#/Vol] 0 10*3/uL Normal 0-5 [facility] Comment on above: Performed By: #### L 100.0100, L500.4050 ####[facility] [address] [place], [address] Platelet mean volume (Bld) [Entitic vol] 9.7 fL Normal 6.2-12.0 [facility] Comment on above: Performed By: #### L 100.0100, L500.4050 ####[facility] [address] [place], [address] Platelets (Bld) [#/Vol] 371 10*3/uL Normal 150-450 [facility] Comment on above: Performed By: #### L 100.0100, L500.4050 ####[facility] [address] [place], [address] RBC (Bld) [#/Vol] 3.65 10*6/uL Low 4.2-5.4 [facility] Comment on above: Performed By: #### L 100.0100, L500.4050 ####[facility] [address] [place], [address] RDW SD 48.5 fl High 35.1-43.9 [facility] Comment on above: Performed By: #### L 100.0100, L500.4050 ####[facility] [address] [place], [address] WBC (Bld) [#/Vol] 9.7 10*3/uL Normal 4.4-11.0 [facility] Comment on above: Performed By: #### L 100.0100, L500.4050 ####[facility] [address] [place], [address] Carbon dioxide measurementOr dered By: Octavia Hector on 04-01-2024 CO2 [Moles/Vol] 30.0 mmol/L 21.0-32.0 [facility] Chloride measurementOrdered By: Octavia Hector on 04-01-2024 Chloride [Moles/Vol] 108 mmol/L High 98-107 [facility] Comprehensive Metabolic Prof ilon 04-01-2024 Albumin [Mass/Vol] 3.4 g/dL Normal 3.2-5.0 [facility] Comment on above: Order Comment: C Performed By: #### L 100.0100, L500.4050 ####[facility] [address] [place], [address] Albumin/Globulin [Mass ratio] 1.2 {ratio} Normal 0.9-2.4 [facility] Comment on above: Order Comment: C Performed By: #### L 100.0100, L500.4050 ####[facility] [address] [place], [address] ALK P 51 U/L Normal 45-117 [facility] Comment on above: Order Comment: C Performed By: #### L 100.0100, L500.4050 ####[facility] [address] [place], [address] ALT [Catalytic activity/Vol] 21 U/L Normal 13-56 [facility] Comment on above: Order Comment: C Performed By: #### L 100.0100, L500.4050 ####[facility] [address] [place], [address] AST [Catalytic activity/Vol] 16 U/L Normal 15-37 [facility] Comment on above: Order Comment: C Performed By: #### L 100.0100, L500.4050 ####[facility] [address] [place], [address] Bilirubin [Mass/Vol] 0.50 mg/dL Normal 0.20-1.00 [facility] Comment on above: Order Comment: C Result Comment: For patients on eltrombopag therapy, use of Dimension [place] TBIL is not recommended. Performed By: #### L 100.0100, L500.4050 ####[facility] [address] [place], [address] BUN/CRE 15.2 RATIO Normal 10-20 [facility] Comment on above: Order Comment: C Performed By: #### L 100.0100, L500.4050 ####[facility] [address] [place], [address] CA,Total 9.1 mg/dL Normal 8.5-10.1 [facility] Comment on above: Order Comment: C Performed By: #### L 100.0100, L500.4050 ####[facility] [address] [place], [address] Chloride [Moles/Vol] 108 mmol/L High 98-107 [facility] Comment on above: Order Comment: C Performed By: #### L 100.0100, L500.4050 ####[facility] [address] [place], [address] CO2 [Moles/Vol] 30.0 mmol/L Normal 21.0-32.0 [facility] Comment on above: Order Comment: C Performed By: #### L 100.0100, L500.4050 ####[facility] [address] [place], [address] Creatinine [Mass/Vol] 1.12 mg/dL High 0.55-1.02 [facility] Comment on above: Order Comment: C Result Comment: The validity of the calculated GFR GFRAA in patients over70 years has not been determined. Clinical correlation isessential. Performed By: #### L 100.0100, L500.4050 ####[facility] [address] [place], [address] EST GFR - AA 62 mL/min Normal >60 [facility] Comment on above: Order Comment: C Result Comment: Afri can Lebanese GFR Calc Performed By: #### L 100.0100, L500.4050 ####[facility] [address] [place], [address] GAP 2 Low 5-15 [facility] Comment on above: Order Comment: C Performed By: #### L 100.0100, L500.4050 ####[facility] [address] [place], [address] GFR/1.73 sq M.predicted among non-blacks MDRD (S/P/Bld) [Vol rate/Area] 51 mL/min/{1.73_m2} Low >60 [facility] Comment on above: Order Comment: C Result Comment: Non- GFR Calc Performed By: #### L 100.0100, L500.4050 ####[facility] [address] [place], [address] Globulin (S) [Mass/Vol] 2.9 g/dL Normal 2.2-4.2 [facility] Comment on above: Order Comment: C Performed By: #### L 100.0100, L500.4050 ####[facility] [address] [place], [address] Glucose [Mass/Vol] 89 mg/dL Normal 74-106 [facility] Comment on above: Order Comment: C Performed By: #### L 100.0100, L500.4050 ####[facility] [address] [place], [address] Potassium [Moles/Vol] 3.3 mmol/L Low 3.5-5.1 [facility] Comment on above: Order Comment: C Performed By: #### L 100.0100, L500.4050 ####[facility] [address] [place], [address] Sodium [Moles/Vol] 141 mmol/L Normal 136-145 [facility] Comment on above: Order Comment: C Performed By: #### L 100.0100, L500.4050 ####[facility] [address] [place], [address] T PROT 6.3 g/dL Low 6.4-8.2 [facility] Comment on above: Order Comment: C Performed By: #### L 100.0100, L500.4050 ####[facility] [address] [place], [address] Urea nitrogen [Mass/Vol] 17 mg/dL Normal 7-18 [facility] Comment on above: Order Comment: C Performed By: #### L 100.0100, L500.4050 ####[facility] [address] [place], [address] Eosinophil percentageOrdered By: Octavia Hector on 04-01-2024 Eosinophils/100 WBC (Bld) 1.7 % 0-5 [facility] Erythrocyte distribution wid th ratioOrdered By: Octavia Hector on 04-01-2024 Erythrocyte distribution width (RBC) [Ratio] 13.2 % 11.6-14.6 [facility] Erythrocyte distribution wid th standard deviationOrdered By: Octavia Hector on 04-01-2024 Erythrocyte distribution width (RBC) [Entitic vol] 48.5 fL High 35.1-43.9 [facility] Estimated glomerular filtrat ion rate (GFR) AmericanOrdered By: Octavia Hector on 04-01-2024 Estimated GFR (MDRD) Amer 62 mL/min >60 [facility] Comment on above: GFR Calc Glomerular filtration rate ( GFR) estimationOrdered By: Octavia Hector on 04-01-2024 Estimated GFR (MDRD) Non-Af Amer 51 mL/min Low >60 [facility] Comment on above: Non- GFR Calc Glucose measurementOrdered B y: Octavia Hector on 04-01-2024 Glucose [Mass/Vol] 89 mg/dL 74-106 [facility] Hematocrit Auto (Bld) [Volum e fraction]Ordered By: Octavia Hector on 04-01-2024 Hematocrit (Bld) [Volume fraction] 36.7 % Low 37-47 [facility] Hemoglobin measurementOrdere d By: Octavia Hector on 04-01-2024 Hemoglobin (Bld) [Mass/Vol] 11.4 g/dL Low 12.0-15.0 [facility] Immature granulocytes/100 WB C Auto (Bld)Ordered By: Octavia Hector on 04-01-2024 Immature granulocytes/100 WBC (Bld) 1.700 % High 0.0-0.9 [facility] Comment on above: IG% - Immature Granu locytes (promyelocytes, myelocytes and metamyelocytes) > 1% indicates that a LEFT SHIFT is Present. Laboratory - Chemistry and C hemistry - challengeOrdered By: Octavia Hector on 04-01-2024 AST [Catalytic activity/Vol] 16 U/L 15-37 [facility] Lymphocytes Auto (Unsp spec) [#/Vol]Ordered By: Octavia Hector on 04-01-2024 Lymphocytes (Bld) [#/Vol] 2.06 10*3/uL 0.83-4.51 [facility] Lymphocytes/100 WBC Auto (Un sp spec)Ordered By: Octavia Hector on 04-01-2024 Lymphocytes/100 WBC (Bld) 21.3 % 19-41 [facility] MCV (mean corpuscular volume ) determinationOrdered By: Octavia Hector on 04-01-2024 MCV (RBC) [Entitic vol] 100.5 fL High 81-99 [facility] Mean corpuscular hemoglobin (MCH) determinationOrdered By: Octavia Hector on 04-01-2024 MCH (RBC) [Entitic mass] 31.2 pg 27.0-32.0 [facility] Mean corpuscular hemoglobin concentration (MCHC) determinationOrdered By: Octavia Hector on 04-01-2024 MCHC (RBC) [Mass/Vol] 31.1 g/dL Low 32-36 [facility] Mean platelet volume determi nationOrdered By: Octavia Hector on 04-01-2024 Platelet mean volume (Bld) [Entitic vol] 9.7 fL 6.2-12.0 [facility] Monocyte percentageOrdered B y: Octavia Hector on 04-01-2024 Monocytes/100 WBC (Bld) 8.3 % 0-10 [facility] Neutrophil percentageOrdered By: Octavia Hector on 04-01-2024 Neutrophils/100 WBC (Bld) 66.4 % 47-70 [facility] Nucleated red blood cell per centageOrdered By: Octavia Hector on 04-01-2024 Nucleated RBC/100 WBC (Bld) [Ratio] 0 % 0-5 [facility] Platelet countOrdered By: Leanna Hector on 04-01-2024 Platelets (Bld) [#/Vol] 371 10*3/uL 150-450 [facility] Potassium measurementOrdered By: Octavia Hector on 04-01-2024 Potassium [Moles/Vol] 3.3 mmol/L Low 3.5-5.1 [facility] RBC Auto (Bld) [#/Vol]Ordere d By: Octavia Hector on 04-01-2024 RBC (Bld) [#/Vol] 3.65 10*6/uL Low 4.2-5.4 [facility] Serum anion gap measurementO rdered By: Octavia Hector on 04-01-2024 Anion gap [Moles/Vol] 2 mmol/L Low 5-15 [facility] Serum globulin measurementOr dered By: Octavia Hector on 04-01-2024 Globulin (S) [Mass/Vol] 2.9 g/dL 2.2-4.2 [facility] Serum or plasma alanine villasenor otransferase (ALT) measurementOrdered By: Octavia Hector on 04-01-2024 ALT [Catalytic activity/Vol] 21 U/L 13-56 [facility] Serum or plasma albumin breana urement (mass/volume)Ordered By: Octavia Hector on 04-01-2024 Albumin [Mass/Vol] 3.4 g/dL 3.2-5.0 [facility] Serum or plasma alkaline beau sphatase measurementOrdered By: Octavia Hector on 04-01-2024 ALP [Catalytic activity/Vol] 51 U/L 45-117 [facility] Serum or plasma calcium breana urement (mass/volume)Ordered By: Octavia Hector on 04-01-2024 Calcium [Mass/Vol] 9.1 mg/dL 8.5-10.1 [facility] Serum or plasma creatinine m easurement (mass/volume)Ordered By: Octavia Hector on 04-01-2024 Creatinine [Mass/Vol] 1.12 mg/dL High 0.55-1.02 [facility] Comment on above: The validity of the calculated GFR & GFRAA in patients over 70 years has not been determined. Clinical correlation is essential. Serum or plasma urea nitroge n measurement (mass/volume)Ordered By: Octavia Hector on 04-01-2024 Urea nitrogen [Mass/Vol] 17 mg/dL 7-18 [facility] Sodium levelOrdered By: Ron Hector on 04-01-2024 Sodium [Moles/Vol] 141 mmol/L 136-145 [facility] Total proteinOrdered By: Jodi Hector on 04-01-2024 Protein [Mass/Vol] 6.3 g/dL Low 6.4-8.2 [facility] White blood cell (WBC) count Ordered By: Octavia Hector on 04-01-2024 WBC (Bld) [#/Vol] 9.7 10*3/uL 4.4-11.0 [facility] Hand Min 3 Viewson 4 Hand Min 3 Views Normal [facility] Plastic Surgery Visit Report on 03-30-2024 Plastic Surgery Visit Report Normal [facility] Emergency Department Summary on 03-28-2024 Emergency Department Summary Normal [facility] CTA Chest W/WO Contraston CTA Chest W/WO Contrast Normal [facility] CBC W/Diff, Automatedon 01-28 Absolute Lymph 1.95 X10 3/uL Normal 0.83-4.51 [facility] Comment on above: Performed By: #### L 300.8000, L500.4050, L100.0100 ####[facility] [address] [place], [address] Absolute Neut 8.6 X10 3/uL High 2.0-7.7 [facility] Comment on above: Performed By: #### L 300.8000, L500.4050, L100.0100 ####[facility] [address] [place], [address] Basophils/100 WBC (Bld) 0.7 % Normal 0-1 [facility] Comment on above: Performed By: #### L 300.8000, L500.4050, L100.0100 ####[facility] [address] [place], [address] Eosinophils/100 WBC (Bld) 2.2 % Normal 0-5 [facility] Comment on above: Performed By: #### L 300.8000, L500.4050, L100.0100 ####[facility] [address] [place], [address] Erythrocyte distribution width (RBC) [Ratio] 13.1 % Normal 11.6-14.6 [facility] Comment on above: Performed By: #### L 300.8000, L500.4050, L100.0100 ####[facility] [address] [place], [address] Hematocrit (Bld) [Volume fraction] 40.0 % Normal 37-47 [facility] Comment on above: Performed By: #### L 300.8000, L500.4050, L100.0100 ####[facility] [address] [place], [address] Hemoglobin (Bld) [Mass/Vol] 12.7 g/dL Normal 12.0-15.0 [facility] Comment on above: Performed By: #### L 300.8000, L500.4050, L100.0100 ####[facility] [address] [place], [address] IG% 4.200 High 0.0-0.9 [facility] Comment on above: Result Comment: IG% - Immature Granulocytes (promyelocytes, myelocytes andmetamyelocytes) > 1% indicates that a LEFT SHIFT is Present. Performed By: #### L 300.8000, L500.4050, L100.0100 ####[facility] [address] [place], [address] Lymphocytes/100 WBC (Bld) 15.9 % Low 19-41 [facility] Comment on above: Performed By: #### L 300.8000, L500.4050, L100.0100 ####[facility] [address] [place], [address] MCH (RBC) [Entitic mass] 31.6 pg Normal 27.0-32.0 [facility] Comment on above: Performed By: #### L 300.8000, L500.4050, L100.0100 ####[facility] [address] [place], [address] MCHC (RBC) [Mass/Vol] 31.8 g/dL Low 32-36 [facility] Comment on above: Performed By: #### L 300.8000, L500.4050, L100.0100 ####[facility] [address] [place], [address] MCV (RBC) [Entitic vol] 99.5 fL High 81-99 [facility] Comment on above: Performed By: #### L 300.8000, L500.4050, L100.0100 ####[facility] [address] [place], [address] Monocytes/100 WBC (Bld) 7.1 % Normal 0-10 [facility] Comment on above: Performed By: #### L 300.8000, L500.4050, L100.0100 ####[facility] [address] [place], [address] Neutrophils/100 WBC (Bld) 69.9 % Normal 47-70 [facility] Comment on above: Performed By: #### L 300.8000, L500.4050, L100.0100 ####[facility] [address] [place], [address] Nucleated RBC (Bld) [#/Vol] 0 10*3/uL Normal 0-5 [facility] Comment on above: Performed By: #### L 300.8000, L500.4050, L100.0100 ####[facility] [address] [place], [address] Platelet mean volume (Bld) [Entitic vol] 9.5 fL Normal 6.2-12.0 [facility] Comment on above: Performed By: #### L 300.8000, L500.4050, L100.0100 ####[facility] [address] [place], [address] Platelets (Bld) [#/Vol] 451 10*3/uL High 150-450 [facility] Comment on above: Performed By: #### L 300.8000, L500.4050, L100.0100 ####[facility] [address] [place], [address] RBC (Bld) [#/Vol] 4.02 10*6/uL Low 4.2-5.4 [facility] Comment on above: Performed By: #### L 300.8000, L500.4050, L100.0100 ####[facility] [address] [place], [address] RDW SD 48.0 fl High 35.1-43.9 [facility] Comment on above: Performed By: #### L 300.8000, L500.4050, L100.0100 ####[facility] [address] [place], [address] WBC (Bld) [#/Vol] 12.3 10*3/uL High 4.4-11.0 [facility] Comment on above: Performed By: #### L 300.8000, L500.4050, L100.0100 ####[facility] [address] [place], [address] Chest PA and Lateralon 02-24 Chest PA and Lateral Normal [facility] Comprehensive Metabolic Prof ilon 02-25-2024 Albumin [Mass/Vol] 3.5 g/dL Normal 3.2-5.0 [facility] Comment on above: Performed By: #### L 300.8000, L500.4050, L100.0100 ####[facility] [address] [place], [address] Albumin/Globulin [Mass ratio] 1.0 {ratio} Normal 0.9-2.4 [facility] Comment on above: Performed By: #### L 300.8000, L500.4050, L100.0100 ####[facility] [address] [place], [address] ALK P 73 U/L Normal 45-117 [facility] Comment on above: Performed By: #### L 300.8000, L500.4050, L100.0100 ####[facility] [address] [place], [address] ALT [Catalytic activity/Vol] 21 U/L Normal 13-56 [facility] Comment on above: Performed By: #### L 300.8000, L500.4050, L100.0100 ####[facility] [address] [place], [address] AST [Catalytic activity/Vol] 12 U/L Low 15-37 [facility] Comment on above: Performed By: #### L 300.8000, L500.4050, L100.0100 ####[facility] [address] [place], [address] Bilirubin [Mass/Vol] 0.40 mg/dL Normal 0.20-1.00 [facility] Comment on above: Result Comment: For patients on eltrombopag therapy, use of Dimension [place] TBIL is not recommended. Performed By: #### L 300.8000, L500.4050, L100.0100 ####[facility] [address] [place], [address] BUN/CRE 11.4 RATIO Normal 10-20 [facility] Comment on above: Performed By: #### L 300.8000, L500.4050, L100.0100 ####[facility] [address] [place], [address] CA,Total 9.2 mg/dL Normal 8.5-10.1 [facility] Comment on above: Performed By: #### L 300.8000, L500.4050, L100.0100 ####[facility] [address] [place], [address] Chloride [Moles/Vol] 109 mmol/L High 98-107 [facility] Comment on above: Performed By: #### L 300.8000, L500.4050, L100.0100 ####[facility] [address] [place], [address] CO2 [Moles/Vol] 26.0 mmol/L Normal 21.0-32.0 [facility] Comment on above: Performed By: #### L 300.8000, L500.4050, L100.0100 ####[facility] [address] [place], [address] Creatinine [Mass/Vol] 1.14 mg/dL High 0.55-1.02 [facility] Comment on above: Result Comment: The validity of the calculated GFR GFRAA in patients over70 years has not been determined. Clinical correlation isessential. Performed By: #### L 300.8000, L500.4050, L100.0100 ####[facility] [address] [place], [address] EST GFR - AA 61 mL/min Normal >60 [facility] Comment on above: Result Comment: Afri can Lebanese GFR Calc Performed By: #### L 300.8000, L500.4050, L100.0100 ####[facility] [address] [place], [address] GAP 6 Normal 5-15 [facility] Comment on above: Performed By: #### L 300.8000, L500.4050, L100.0100 ####[facility] [address] [place], [address] GFR/1.73 sq M.predicted among non-blacks MDRD (S/P/Bld) [Vol rate/Area] 50 mL/min/{1.73_m2} Low >60 [facility] Comment on above: Result Comment: Non- GFR Calc Performed By: #### L 300.8000, L500.4050, L100.0100 ####[facility] [address] [place], [address] Globulin (S) [Mass/Vol] 3.4 g/dL Normal 2.2-4.2 [facility] Comment on above: Performed By: #### L 300.8000, L500.4050, L100.0100 ####[facility] [address] [place], [address] Glucose [Mass/Vol] 108 mg/dL High 74-106 [facility] Comment on above: Result Comment: Fast ing Glucose result from 100 to 125 mg/dLsuggests IMPAIRED HOMEOSTASIS per A.D.A. criteria. Performed By: #### L 300.8000, L500.4050, L100.0100 ####[facility] [address] [place], [address] Potassium [Moles/Vol] 3.6 mmol/L Normal 3.5-5.1 [facility] Comment on above: Performed By: #### L 300.8000, L500.4050, L100.0100 ####[facility] [address] [place], [address] Sodium [Moles/Vol] 141 mmol/L Normal 136-145 [facility] Comment on above: Performed By: #### L 300.8000, L500.4050, L100.0100 ####[facility] [address] [place], [address] T PROT 6.9 g/dL Normal 6.4-8.2 [facility] Comment on above: Performed By: #### L 300.8000, L500.4050, L100.0100 ####[facility] [address] [place], [address] Urea nitrogen [Mass/Vol] 13 mg/dL Normal 7-18 [facility] Comment on above: Performed By: #### L 300.8000, L500.4050, L100.0100 ####[facility] [address] [place], [address] D-Dimer Quantitative (DVT/PE )on 02-25-2024 D-DIMER QUANT 0.65 FEU/ug/m Invalid Interpretation Code 0.27-0.49 [facility] Comment on above: Result Comment: D-Di rizwan ELEVATED (>0.49): Additional studies and clinicalassessments are indicated to conclude diagnosis of:Deep Vein Thrombosis (DVT) or Pulmonary Embolism (PE)CRITICAL VALUE CALLED TO LULI RAPP ([facility])02/25/24 1226 Donato Jordan.RESULTS READ BACK BY SAME. Performed By: #### L 300.8000, L500.4050, L100.0100 ####[facility] [address] [place], [address] Internal Medicine Office Vis iton 02-25-2024 Internal Medicine Office Visit Normal [facility] Urgent Care Visit Reporton 1 Urgent Care Visit Report Normal [facility] Surgery Visit Reporton 02-11 Surgery Visit Report Normal [facility] Comprehensive Metabolic Prof ilon 02-06-2024 Albumin [Mass/Vol] 3.0 g/dL Low 3.2-5.0 [facility] Comment on above: Performed By: #### L 500.4050 ####[facility] [address] [place], [address] Albumin/Globulin [Mass ratio] 0.8 {ratio} Low 0.9-2.4 [facility] Comment on above: Performed By: #### L 500.4050 ####[facility] [address] [place], [address] ALK P 87 U/L Normal 45-117 [facility] Comment on above: Performed By: #### L 500.4050 ####[facility] [address] [place], [address] ALT [Catalytic activity/Vol] 35 U/L Normal 13-56 [facility] Comment on above: Performed By: #### L 500.4050 ####[facility] [address] [place], [address] AST [Catalytic activity/Vol] 17 U/L Normal 15-37 [facility] Comment on above: Performed By: #### L 500.4050 ####[facility] [address] [place], [address] Bilirubin [Mass/Vol] 0.40 mg/dL Normal 0.20-1.00 [facility] Comment on above: Result Comment: For patients on eltrombopag therapy, use of Dimension [place] TBIL is not recommended. Performed By: #### L 500.4050 ####[facility] [address] [place], [address] BUN/CRE 11.0 RATIO Normal 10-20 [facility] Comment on above: Performed By: #### L 500.4050 ####[facility] [address] [place], [address] CA,Total 9.3 mg/dL Normal 8.5-10.1 [facility] Comment on above: Performed By: #### L 500.4050 ####[facility] [address] [place], [address] Chloride [Moles/Vol] 107 mmol/L Normal 98-107 [facility] Comment on above: Performed By: #### L 500.4050 ####[facility] [address] [place], [address] CO2 [Moles/Vol] 24.0 mmol/L Normal 21.0-32.0 [facility] Comment on above: Performed By: #### L 500.4050 ####[facility] [address] [place], [address] Creatinine [Mass/Vol] 1.00 mg/dL Normal 0.55-1.02 [facility] Comment on above: Result Comment: The validity of the calculated GFR GFRAA in patients over70 years has not been determined. Clinical correlation isessential. Performed By: #### L 500.4050 ####[facility] [address] [place], [address] EST GFR - AA 71 mL/min Normal >60 [facility] Comment on above: Result Comment: Afri can Lebanese GFR Calc Performed By: #### L 500.4050 ####[facility] [address] [place], [address] GAP 7 Normal 5-15 [facility] Comment on above: Performed By: #### L 500.4050 ####[facility] [address] [place], [address] GFR/1.73 sq M.predicted among non-blacks MDRD (S/P/Bld) [Vol rate/Area] 59 mL/min/{1.73_m2} Low >60 [facility] Comment on above: Result Comment: Non- GFR Calc Performed By: #### L 500.4050 ####[facility] [address] [place], [address] Globulin (S) [Mass/Vol] 3.6 g/dL Normal 2.2-4.2 [facility] Comment on above: Performed By: #### L 500.4050 ####[facility] [address] [place], [address] Glucose [Mass/Vol] 104 mg/dL Normal 74-106 [facility] Comment on above: Result Comment: Fast ing Glucose result from 100 to 125 mg/dLsuggests IMPAIRED HOMEOSTASIS per A.D.A. criteria. Performed By: #### L 500.4050 ####[facility] [address] [place], [address] Potassium [Moles/Vol] 3.6 mmol/L Normal 3.5-5.1 [facility] Comment on above: Performed By: #### L 500.4050 ####[facility] [address] [place], [address] Sodium [Moles/Vol] 138 mmol/L Normal 136-145 [facility] Comment on above: Performed By: #### L 500.4050 ####[facility] [address] [place], [address] T PROT 6.6 g/dL Normal 6.4-8.2 [facility] Comment on above: Performed By: #### L 500.4050 ####[facility] [address] [place], [address] Urea nitrogen [Mass/Vol] 11 mg/dL Normal 7-18 [facility] Comment on above: Performed By: #### L 500.4050 ####[facility] [address] [place], [address] Basic Metabolic Profile (BMP )on 02-01-2024 BUN/CRE 9.7 RATIO Low 10-20 [facility] Comment on above: Performed By: #### L 100.0100, L500.2500 ####[facility] [address] [place], [address] CA,Total 8.5 mg/dL Normal 8.5-10.1 [facility] Comment on above: Performed By: #### L 100.0100, L500.2500 ####[facility] [address] [place], [address] Chloride [Moles/Vol] 112 mmol/L High 98-107 [facility] Comment on above: Performed By: #### L 100.0100, L500.2500 ####[facility] [address] [place], [address] CO2 [Moles/Vol] 24.0 mmol/L Normal 21.0-32.0 [facility] Comment on above: Performed By: #### L 100.0100, L500.2500 ####[facility] [address] [place], [address] Creatinine [Mass/Vol] 0.82 mg/dL Normal 0.55-1.02 [facility] Comment on above: Result Comment: The validity of the calculated GFR GFRAA in patients over70 years has not been determined. Clinical correlation isessential. Performed By: #### L 100.0100, L500.2500 ####[facility] [address] [place], [address] ECRCL 71.10 ml/min Normal [facility] Comment on above: Performed By: #### L 100.0100, L500.2500 ####[facility] [address] [place], [address] EST GFR - AA 88 mL/min Normal >60 [facility] Comment on above: Result Comment: Afri can Lebanese GFR Calc Performed By: #### L 100.0100, L500.2500 ####[facility] [address] [place], [address] GAP 4 Low 5-15 [facility] Comment on above: Performed By: #### L 100.0100, L500.2500 ####[facility] [address] [place], [address] GFR/1.73 sq M.predicted among non-blacks MDRD (S/P/Bld) [Vol rate/Area] 73 mL/min/{1.73_m2} Normal >60 [facility] Comment on above: Result Comment: Non- GFR Calc Performed By: #### L 100.0100, L500.2500 ####[facility] [address] [place], [address] Glucose [Mass/Vol] 102 mg/dL Normal 74-106 [facility] Comment on above: Result Comment: Fast ing Glucose result from 100 to 125 mg/dLsuggests IMPAIRED HOMEOSTASIS per A.D.A. criteria. Performed By: #### L 100.0100, L500.2500 ####[facility] [address] [place], [address] Potassium [Moles/Vol] 3.8 mmol/L Normal 3.5-5.1 [facility] Comment on above: Performed By: #### L 100.0100, L500.2500 ####[facility] [address] [place], [address] Sodium [Moles/Vol] 140 mmol/L Normal 136-145 [facility] Comment on above: Performed By: #### L 100.0100, L500.2500 ####[facility] [address] [place], [address] Urea nitrogen [Mass/Vol] 8 mg/dL Normal 7-18 [facility] Comment on above: Performed By: #### L 100.0100, L500.2500 ####[facility] [address] [place], [address] CBC W/Diff, Automatedon 10-0 6-2023 Absolute Lymph 0.93 X10 3/uL Normal 0.83-4.51 [facility] Comment on above: Performed By: #### L 100.0100, L500.2500 ####[facility] [address] [place], [address] Absolute Neut 5.4 X10 3/uL Normal 2.0-7.7 [facility] Comment on above: Performed By: #### L 100.0100, L500.2500 ####[facility] [address] [place], [address] Basophils/100 WBC (Bld) 0.5 % Normal 0-1 [facility] Comment on above: Performed By: #### L 100.0100, L500.2500 ####[facility] [address] [place], [address] Eosinophils/100 WBC (Bld) 2.4 % Normal 0-5 [facility] Comment on above: Performed By: #### L 100.0100, L500.2500 ####[facility] [address] [place], [address] Erythrocyte distribution width (RBC) [Ratio] 13.3 % Normal 11.6-14.6 [facility] Comment on above: Performed By: #### L 100.0100, L500.2500 ####[facility] [address] [place], [address] Hematocrit (Bld) [Volume fraction] 31.2 % Low 37-47 [facility] Comment on above: Performed By: #### L 100.0100, L500.2500 ####[facility] [address] [place], [address] Hemoglobin (Bld) [Mass/Vol] 9.9 g/dL Low 12.0-15.0 [facility] Comment on above: Performed By: #### L 100.0100, L500.2500 ####[facility] [address] [place], [address] IG% 1.400 High 0.0-0.9 [facility] Comment on above: Result Comment: IG% - Immature Granulocytes (promyelocytes, myelocytes andmetamyelocytes) > 1% indicates that a LEFT SHIFT is Present. Performed By: #### L 100.0100, L500.2500 ####[facility] [address] [place], [address] Lymphocytes/100 WBC (Bld) 12.7 % Low 19-41 [facility] Comment on above: Performed By: #### L 100.0100, L500.2500 ####[facility] [address] [place], [address] MCH (RBC) [Entitic mass] 31.9 pg Normal 27.0-32.0 [facility] Comment on above: Performed By: #### L 100.0100, L500.2500 ####[facility] [address] [place], [address] MCHC (RBC) [Mass/Vol] 31.7 g/dL Low 32-36 [facility] Comment on above: Performed By: #### L 100.0100, L500.2500 ####[facility] [address] [place], [address] MCV (RBC) [Entitic vol] 100.6 fL High 81-99 [facility] Comment on above: Performed By: #### L 100.0100, L500.2500 ####[facility] [address] [place], [address] Monocytes/100 WBC (Bld) 10.1 % High 0-10 [facility] Comment on above: Performed By: #### L 100.0100, L500.2500 ####[facility] [address] [place], [address] Neutrophils/100 WBC (Bld) 72.9 % High 47-70 [facility] Comment on above: Performed By: #### L 100.0100, L500.2500 ####[facility] [address] [place], [address] Nucleated RBC (Bld) [#/Vol] 0 10*3/uL Normal 0-5 [facility] Comment on above: Performed By: #### L 100.0100, L500.2500 ####[facility] [address] [place], [address] Platelet mean volume (Bld) [Entitic vol] 9.3 fL Normal 6.2-12.0 [facility] Comment on above: Performed By: #### L 100.0100, L500.2500 ####[facility] [address] [place], [address] Platelets (Bld) [#/Vol] 283 10*3/uL Normal 150-450 [facility] Comment on above: Performed By: #### L 100.0100, L500.2500 ####[facility] [address] [place], [address] RBC (Bld) [#/Vol] 3.10 10*6/uL Low 4.2-5.4 [facility] Comment on above: Performed By: #### L 100.0100, L500.2500 ####[facility] [address] [place], [address] RDW SD 49.7 fl High 35.1-43.9 [facility] Comment on above: Performed By: #### L 100.0100, L500.2500 ####[facility] [address] [place], [address] WBC (Bld) [#/Vol] 7.4 10*3/uL Normal 4.4-11.0 [facility] Comment on above: Performed By: #### L 100.0100, L500.2500 ####[facility] [address] [place], [address] Basic Metabolic Profile (BMP )on 01-31-2024 BUN/CRE 10.7 RATIO Normal 10-20 [facility] Comment on above: Performed By: #### L 500.2500, L100.0100, L500.3400 ####[facility] [address] [place], [address] CA,Total 8.0 mg/dL Low 8.5-10.1 [facility] Comment on above: Performed By: #### L 500.2500, L100.0100, L500.3400 ####[facility] [address] [place], [address] Chloride [Moles/Vol] 111 mmol/L High 98-107 [facility] Comment on above: Performed By: #### L 500.2500, L100.0100, L500.3400 ####[facility] [address] [place], [address] CO2 [Moles/Vol] 21.0 mmol/L Normal 21.0-32.0 [facility] Comment on above: Performed By: #### L 500.2500, L100.0100, L500.3400 ####[facility] [address] [place], [address] Creatinine [Mass/Vol] 0.94 mg/dL Normal 0.55-1.02 [facility] Comment on above: Result Comment: The validity of the calculated GFR GFRAA in patients over70 years has not been determined. Clinical correlation isessential. Performed By: #### L 500.2500, L100.0100, L500.3400 ####[facility] [address] [place], [address] ECRCL 62.03 ml/min Normal [facility] Comment on above: Performed By: #### L 500.2500, L100.0100, L500.3400 ####[facility] [address] [place], [address] EST GFR - AA 76 mL/min Normal >60 [facility] Comment on above: Result Comment: Afri can Lebanese GFR Calc Performed By: #### L 500.2500, L100.0100, L500.3400 ####[facility] [address] [place], [address] GAP 7 Normal 5-15 [facility] Comment on above: Performed By: #### L 500.2500, L100.0100, L500.3400 ####[facility] [address] [place], [address] GFR/1.73 sq M.predicted among non-blacks MDRD (S/P/Bld) [Vol rate/Area] 63 mL/min/{1.73_m2} Normal >60 [facility] Comment on above: Result Comment: Non- GFR Calc Performed By: #### L 500.2500, L100.0100, L500.3400 ####[facility] [address] [place], [address] Glucose [Mass/Vol] 105 mg/dL Normal 74-106 [facility] Comment on above: Result Comment: Fast ing Glucose result from 100 to 125 mg/dLsuggests IMPAIRED HOMEOSTASIS per A.D.A. criteria. Performed By: #### L 500.2500, L100.0100, L500.3400 ####[facility] [address] [place], [address] Potassium [Moles/Vol] 3.7 mmol/L Normal 3.5-5.1 [facility] Comment on above: Performed By: #### L 500.2500, L100.0100, L500.3400 ####[facility] [address] [place], [address] Sodium [Moles/Vol] 139 mmol/L Normal 136-145 [facility] Comment on above: Performed By: #### L 500.2500, L100.0100, L500.3400 ####[facility] [address] [place], [address] Urea nitrogen [Mass/Vol] 10 mg/dL Normal 7-18 [facility] Comment on above: Performed By: #### L 500.2500, L100.0100, L500.3400 ####[facility] [address] [place], [address] CBC W/Diff, Automatedon 10-0 -2023 Absolute Lymph 0.82 X10 3/uL Low 0.83-4.51 [facility] Comment on above: Performed By: #### L 500.2500, L100.0100, L500.3400 ####[facility] [address] [place], [address] Absolute Neut 10.7 X10 3/uL High 2.0-7.7 [facility] Comment on above: Performed By: #### L 500.2500, L100.0100, L500.3400 ####[facility] [address] [place], [address] Basophils/100 WBC (Bld) 0.2 % Normal 0-1 [facility] Comment on above: Performed By: #### L 500.2500, L100.0100, L500.3400 ####[facility] [address] [place], [address] Eosinophils/100 WBC (Bld) 0.4 % Normal 0-5 [facility] Comment on above: Performed By: #### L 500.2500, L100.0100, L500.3400 ####[facility] [address] [place], [address] Erythrocyte distribution width (RBC) [Ratio] 13.5 % Normal 11.6-14.6 [facility] Comment on above: Performed By: #### L 500.2500, L100.0100, L500.3400 ####[facility] [address] [place], [address] Hematocrit (Bld) [Volume fraction] 31.7 % Low 37-47 [facility] Comment on above: Performed By: #### L 500.2500, L100.0100, L500.3400 ####[facility] [address] [place], [address] Hemoglobin (Bld) [Mass/Vol] 10.0 g/dL Low 12.0-15.0 [facility] Comment on above: Performed By: #### L 500.2500, L100.0100, L500.3400 ####[facility] [address] [place], [address] IG% 1.400 High 0.0-0.9 [facility] Comment on above: Result Comment: IG% - Immature Granulocytes (promyelocytes, myelocytes andmetamyelocytes) > 1% indicates that a LEFT SHIFT is Present. Performed By: #### L 500.2500, L100.0100, L500.3400 ####[facility] [address] [place], [address] Lymphocytes/100 WBC (Bld) 6.5 % Low 19-41 [facility] Comment on above: Performed By: #### L 500.2500, L100.0100, L500.3400 ####[facility] [address] [place], [address] MCH (RBC) [Entitic mass] 32.1 pg High 27.0-32.0 [facility] Comment on above: Performed By: #### L 500.2500, L100.0100, L500.3400 ####[facility] [address] [place], [address] MCHC (RBC) [Mass/Vol] 31.5 g/dL Low 32-36 [facility] Comment on above: Performed By: #### L 500.2500, L100.0100, L500.3400 ####[facility] [address] [place], [address] MCV (RBC) [Entitic vol] 101.6 fL High 81-99 [facility] Comment on above: Performed By: #### L 500.2500, L100.0100, L500.3400 ####[facility] [address] [place], [address] Monocytes/100 WBC (Bld) 7.6 % Normal 0-10 [facility] Comment on above: Performed By: #### L 500.2500, L100.0100, L500.3400 ####[facility] [address] [place], [address] Neutrophils/100 WBC (Bld) 83.9 % High 47-70 [facility] Comment on above: Performed By: #### L 500.2500, L100.0100, L500.3400 ####[facility] [address] [place], [address] Nucleated RBC (Bld) [#/Vol] 0 10*3/uL Normal 0-5 [facility] Comment on above: Performed By: #### L 500.2500, L100.0100, L500.3400 ####[facility] [address] [place], [address] Platelet mean volume (Bld) [Entitic vol] 9.4 fL Normal 6.2-12.0 [facility] Comment on above: Performed By: #### L 500.2500, L100.0100, L500.3400 ####[facility] [address] [place], [address] Platelets (Bld) [#/Vol] 257 10*3/uL Normal 150-450 [facility] Comment on above: Performed By: #### L 500.2500, L100.0100, L500.3400 ####[facility] [address] [place], [address] RBC (Bld) [#/Vol] 3.12 10*6/uL Low 4.2-5.4 [facility] Comment on above: Performed By: #### L 500.2500, L100.0100, L500.3400 ####[facility] [address] [place], [address] RDW SD 49.9 fl High 35.1-43.9 [facility] Comment on above: Performed By: #### L 500.2500, L100.0100, L500.3400 ####[facility] [address] [place], [address] WBC (Bld) [#/Vol] 12.7 10*3/uL High 4.4-11.0 [facility] Comment on above: Performed By: #### L 500.2500, L100.0100, L500.3400 ####[facility] [address] [place], [address] Liver Profileon 01-31-2024 Albumin [Mass/Vol] 2.4 g/dL Low 3.2-5.0 [facility] Comment on above: Performed By: #### L 500.2500, L100.0100, L500.3400 ####[facility] [address] [place], [address] ALK P 80 U/L Normal 45-117 [facility] Comment on above: Performed By: #### L 500.2500, L100.0100, L500.3400 ####[facility] [address] [place], [address] ALT [Catalytic activity/Vol] 96 U/L High 13-56 [facility] Comment on above: Performed By: #### L 500.2500, L100.0100, L500.3400 ####[facility] [address] [place], [address] AST [Catalytic activity/Vol] 38 U/L High 15-37 [facility] Comment on above: Performed By: #### L 500.2500, L100.0100, L500.3400 ####[facility] [address] [place], [address] Bilirubin [Mass/Vol] 0.80 mg/dL Normal 0.20-1.00 [facility] Comment on above: Result Comment: For patients on eltrombopag therapy, use of Dimension [place] TBIL is not recommended. Performed By: #### L 500.2500, L100.0100, L500.3400 ####[facility] [address] [place], [address] Bilirubin.direct [Mass/Vol] 0.24 mg/dL Normal 0.00-0.30 [facility] Comment on above: Performed By: #### L 500.2500, L100.0100, L500.3400 ####[facility] [address] [place], [address] Globulin (S) [Mass/Vol] 3.4 g/dL Normal 2.2-4.2 [facility] Comment on above: Performed By: #### L 500.2500, L100.0100, L500.3400 ####[facility] [address] [place], [address] T PROT 5.8 g/dL Low 6.4-8.2 [facility] Comment on above: Performed By: #### L 500.2500, L100.0100, L500.3400 ####[facility] [address] [place], [address] CBC W/Diff, Automatedon 10-0 4-2023 Absolute Lymph 0.34 X10 3/uL Low 0.83-4.51 [facility] Comment on above: Performed By: #### L 100.0100, L500.4050 ####[facility] [address] [place], [address] Absolute Neut 19.2 X10 3/uL High 2.0-7.7 [facility] Comment on above: Performed By: #### L 100.0100, L500.4050 ####[facility] [address] [place], [address] Basophils/100 WBC (Bld) 0.2 % Normal 0-1 [facility] Comment on above: Performed By: #### L 100.0100, L500.4050 ####[facility] [address] [place], [address] Eosinophils/100 WBC (Bld) 0.3 % Normal 0-5 [facility] Comment on above: Performed By: #### L 100.0100, L500.4050 ####[facility] [address] [place], [address] Erythrocyte distribution width (RBC) [Ratio] 13.6 % Normal 11.6-14.6 [facility] Comment on above: Performed By: #### L 100.0100, L500.4050 ####[facility] [address] [place], [address] Hematocrit (Bld) [Volume fraction] 34.2 % Low 37-47 [facility] Comment on above: Performed By: #### L 100.0100, L500.4050 ####[facility] [address] [place], [address] Hemoglobin (Bld) [Mass/Vol] 10.7 g/dL Low 12.0-15.0 [facility] Comment on above: Performed By: #### L 100.0100, L500.4050 ####[facility] [address] [place], [address] IG% 1.600 High 0.0-0.9 [facility] Comment on above: Result Comment: IG% - Immature Granulocytes (promyelocytes, myelocytes andmetamyelocytes) > 1% indicates that a LEFT SHIFT is Present. Performed By: #### L 100.0100, L500.4050 ####[facility] [address] [place], [address] Lymphocytes/100 WBC (Bld) 1.6 % Low 19-41 [facility] Comment on above: Performed By: #### L 100.0100, L500.4050 ####[facility] [address] [place], [address] MCH (RBC) [Entitic mass] 32.1 pg High 27.0-32.0 [facility] Comment on above: Performed By: #### L 100.0100, L500.4050 ####[facility] [address] [place], [address] MCHC (RBC) [Mass/Vol] 31.3 g/dL Low 32-36 [facility] Comment on above: Performed By: #### L 100.0100, L500.4050 ####[facility] [address] [place], [address] MCV (RBC) [Entitic vol] 102.7 fL High 81-99 [facility] Comment on above: Performed By: #### L 100.0100, L500.4050 ####[facility] [address] [place], [address] Monocytes/100 WBC (Bld) 5.3 % Normal 0-10 [facility] Comment on above: Performed By: #### L 100.0100, L500.4050 ####[facility] [address] [place], [address] Neutrophils/100 WBC (Bld) 91.0 % High 47-70 [facility] Comment on above: Performed By: #### L 100.0100, L500.4050 ####[facility] [address] [place], [address] Nucleated RBC (Bld) [#/Vol] 0 10*3/uL Normal 0-5 [facility] Comment on above: Performed By: #### L 100.0100, L500.4050 ####[facility] [address] [place], [address] Platelet mean volume (Bld) [Entitic vol] 9.7 fL Normal 6.2-12.0 [facility] Comment on above: Performed By: #### L 100.0100, L500.4050 ####[facility] [address] [place], [address] Platelets (Bld) [#/Vol] 274 10*3/uL Normal 150-450 [facility] Comment on above: Performed By: #### L 100.0100, L500.4050 ####[facility] [address] [place], [address] RBC (Bld) [#/Vol] 3.33 10*6/uL Low 4.2-5.4 [facility] Comment on above: Performed By: #### L 100.0100, L500.4050 ####[facility] [address] [place], [address] RDW SD 51.8 fl High 35.1-43.9 [facility] Comment on above: Performed By: #### L 100.0100, L500.4050 ####[facility] [address] [place], [address] WBC (Bld) [#/Vol] 21.1 10*3/uL High 4.4-11.0 [facility] Comment on above: Performed By: #### L 100.0100, L500.4050 ####[facility] [address] [place], [address] Comprehensive Metabolic Prof [facility] 01-30-2024 Albumin [Mass/Vol] 2.6 g/dL Low 3.2-5.0 [facility] Comment on above: Performed By: #### L 100.0100, L500.4050 ####[facility] [address] [place], [address] Albumin/Globulin [Mass ratio] 0.8 {ratio} Low 0.9-2.4 [facility] Comment on above: Performed By: #### L 100.0100, L500.4050 ####[facility] [address] [place], [address] ALK P 94 U/L Normal 45-117 [facility] Comment on above: Performed By: #### L 100.0100, L500.4050 ####[facility] [address] [place], [address] ALT [Catalytic activity/Vol] 151 U/L High 13-56 [facility] Comment on above: Performed By: #### L 100.0100, L500.4050 ####[facility] [address] [place], [address] AST [Catalytic activity/Vol] 90 U/L High 15-37 [facility] Comment on above: Performed By: #### L 100.0100, L500.4050 ####[facility] [address] [place], [address] Bilirubin [Mass/Vol] 0.90 mg/dL Normal 0.20-1.00 [facility] Comment on above: Result Comment: For patients on eltrombopag therapy, use of Dimension [place] TBIL is not recommended. Performed By: #### L 100.0100, L500.4050 ####[facility] [address] [place], [address] BUN/CRE 15.2 RATIO Normal 10-20 [facility] Comment on above: Performed By: #### L 100.0100, L500.4050 ####[facility] [address] [place], [address] CA,Total 7.8 mg/dL Low 8.5-10.1 [facility] Comment on above: Performed By: #### L 100.0100, L500.4050 ####[facility] [address] [place], [address] Chloride [Moles/Vol] 111 mmol/L High 98-107 [facility] Comment on above: Performed By: #### L 100.0100, L500.4050 ####[facility] [address] [place], [address] CO2 [Moles/Vol] 19.0 mmol/L Low 21.0-32.0 [facility] Comment on above: Performed By: #### L 100.0100, L500.4050 ####[facility] [address] [place], [address] Creatinine [Mass/Vol] 1.05 mg/dL High 0.55-1.02 [facility] Comment on above: Result Comment: The validity of the calculated GFR GFRAA in patients over70 years has not been determined. Clinical correlation isessential. Performed By: #### L 100.0100, L500.4050 ####[facility] [address] [place], [address] ECRCL 55.53 ml/min Normal [facility] Comment on above: Performed By: #### L 100.0100, L500.4050 ####[facility] [address] [place], [address] EST GFR - AA 67 mL/min Normal >60 [facility] Comment on above: Result Comment: Afri can Lebanese GFR Calc Performed By: #### L 100.0100, L500.4050 ####[facility] [address] [place], [address] GAP 8 Normal 5-15 [facility] Comment on above: Performed By: #### L 100.0100, L500.4050 ####[facility] [address] [place], [address] GFR/1.73 sq M.predicted among non-blacks MDRD (S/P/Bld) [Vol rate/Area] 55 mL/min/{1.73_m2} Low >60 [facility] Comment on above: Result Comment: Non- GFR Calc Performed By: #### L 100.0100, L500.4050 ####[facility] [address] [place], [address] Globulin (S) [Mass/Vol] 3.3 g/dL Normal 2.2-4.2 [facility] Comment on above: Performed By: #### L 100.0100, L500.4050 ####[facility] [address] [place], [address] Glucose [Mass/Vol] 101 mg/dL Normal 74-106 [facility] Comment on above: Result Comment: Fast ing Glucose result from 100 to 125 mg/dLsuggests IMPAIRED HOMEOSTASIS per A.D.A. criteria. Performed By: #### L 100.0100, L500.4050 ####[facility] [address] [place], [address] Potassium [Moles/Vol] 4.0 mmol/L Normal 3.5-5.1 [facility] Comment on above: Performed By: #### L 100.0100, L500.4050 ####[facility] [address] [place], [address] Sodium [Moles/Vol] 138 mmol/L Normal 136-145 [facility] Comment on above: Performed By: #### L 100.0100, L500.4050 ####[facility] [address] [place], [address] T PROT 5.9 g/dL Low 6.4-8.2 [facility] Comment on above: Performed By: #### L 100.0100, L500.4050 ####[facility] [address] [place], [address] Urea nitrogen [Mass/Vol] 16 mg/dL Normal 7-18 [facility] Comment on above: Performed By: #### L 100.0100, L500.4050 ####[facility] [address] [place], [address] Surgery Specimen Level IIIon 01-30-2024 Surgery Specimen Level III Normal [facility] Comment on above: Performed By: #### P SUIII ####[facility] [address] [place], [address] CBC W/Diff, Automatedon 10-0 3-2024 Absolute Lymph 0.93 X10 3/uL Normal 0.83-4.51 [facility] Comment on above: Performed By: #### L 100.0100, L500.4050 ####[facility] [address] [place], [address] Absolute Neut 14.5 X10 3/uL High 2.0-7.7 [facility] Comment on above: Performed By: #### L 100.0100, L500.4050 ####[facility] [address] [place], [address] Basophils/100 WBC (Bld) 0.5 % Normal 0-1 [facility] Comment on above: Performed By: #### L 100.0100, L500.4050 ####[facility] [address] [place], [address] Eosinophils/100 WBC (Bld) 0.5 % Normal 0-5 [facility] Comment on above: Performed By: #### L 100.0100, L500.4050 ####[facility] [address] [place], [address] Erythrocyte distribution width (RBC) [Ratio] 13.4 % Normal 11.6-14.6 [facility] Comment on above: Performed By: #### L 100.0100, L500.4050 ####[facility] [address] [place], [address] Hematocrit (Bld) [Volume fraction] 35.0 % Low 37-47 [facility] Comment on above: Performed By: #### L 100.0100, L500.4050 ####[facility] [address] [place], [address] Hemoglobin (Bld) [Mass/Vol] 11.2 g/dL Low 12.0-15.0 [facility] Comment on above: Performed By: #### L 100.0100, L500.4050 ####[facility] [address] [place], [address] IG% 1.400 High 0.0-0.9 [facility] Comment on above: Result Comment: IG% - Immature Granulocytes (promyelocytes, myelocytes andmetamyelocytes) > 1% indicates that a LEFT SHIFT is Present. Performed By: #### L 100.0100, L500.4050 ####[facility] [address] [place], [address] Lymphocytes/100 WBC (Bld) 5.4 % Low 19-41 [facility] Comment on above: Performed By: #### L 100.0100, L500.4050 ####[facility] [address] [place], [address] MCH (RBC) [Entitic mass] 32.2 pg High 27.0-32.0 [facility] Comment on above: Performed By: #### L 100.0100, L500.4050 ####[facility] [address] [place], [address] MCHC (RBC) [Mass/Vol] 32.0 g/dL Normal 32-36 [facility] Comment on above: Performed By: #### L 100.0100, L500.4050 ####[facility] [address] [place], [address] MCV (RBC) [Entitic vol] 100.6 fL High 81-99 [facility] Comment on above: Performed By: #### L 100.0100, L500.4050 ####[facility] [address] [place], [address] Monocytes/100 WBC (Bld) 8.2 % Normal 0-10 [facility] Comment on above: Performed By: #### L 100.0100, L500.4050 ####[facility] [address] [place], [address] Neutrophils/100 WBC (Bld) 84.0 % High 47-70 [facility] Comment on above: Performed By: #### L 100.0100, L500.4050 ####[facility] [address] [place], [address] Nucleated RBC (Bld) [#/Vol] 0 10*3/uL Normal 0-5 [facility] Comment on above: Performed By: #### L 100.0100, L500.4050 ####[facility] [address] [place], [address] Platelet mean volume (Bld) [Entitic vol] 9.4 fL Normal 6.2-12.0 [facility] Comment on above: Performed By: #### L 100.0100, L500.4050 ####[facility] [address] [place], [address] Platelets (Bld) [#/Vol] 296 10*3/uL Normal 150-450 [facility] Comment on above: Performed By: #### L 100.0100, L500.4050 ####[facility] [address] [place], [address] RBC (Bld) [#/Vol] 3.48 10*6/uL Low 4.2-5.4 [facility] Comment on above: Performed By: #### L 100.0100, L500.4050 ####[facility] [address] [place], [address] RDW SD 49.2 fl High 35.1-43.9 [facility] Comment on above: Performed By: #### L 100.0100, L500.4050 ####[facility] [address] [place], [address] WBC (Bld) [#/Vol] 17.2 10*3/uL High 4.4-11.0 [facility] Comment on above: Performed By: #### L 100.0100, L500.4050 ####[facility] [address] [place], [address] Cholangiogram/ O R,Initialon 01-29-2024 Cholangiogram/ O R,Initial Normal [facility] Comprehensive Metabolic Prof ilon 01-29-2024 Albumin [Mass/Vol] 2.9 g/dL Low 3.2-5.0 [facility] Comment on above: Performed By: #### L 100.0100, L500.4050 ####[facility] [address] [place], [address] Albumin/Globulin [Mass ratio] 1.0 {ratio} Normal 0.9-2.4 [facility] Comment on above: Performed By: #### L 100.0100, L500.4050 ####[facility] [address] [place], [address] ALK P 66 U/L Normal 45-117 [facility] Comment on above: Performed By: #### L 100.0100, L500.4050 ####[facility] [address] [place], [address] ALT [Catalytic activity/Vol] 137 U/L High 13-56 [facility] Comment on above: Performed By: #### L 100.0100, L500.4050 ####[facility] [address] [place], [address] AST [Catalytic activity/Vol] 98 U/L High 15-37 [facility] Comment on above: Performed By: #### L 100.0100, L500.4050 ####[facility] [address] [place], [address] Bilirubin [Mass/Vol] 1.30 mg/dL High 0.20-1.00 [facility] Comment on above: Result Comment: For patients on eltrombopag therapy, use of Dimension [place] TBIL is not recommended. Performed By: #### L 100.0100, L500.4050 ####[facility] [address] [place], [address] BUN/CRE 18.9 RATIO Normal 10-20 [facility] Comment on above: Performed By: #### L 100.0100, L500.4050 ####[facility] [address] [place], [address] CA,Total 8.1 mg/dL Low 8.5-10.1 [facility] Comment on above: Performed By: #### L 100.0100, L500.4050 ####[facility] [address] [place], [address] Chloride [Moles/Vol] 109 mmol/L High 98-107 [facility] Comment on above: Performed By: #### L 100.0100, L500.4050 ####[facility] [address] [place], [address] CO2 [Moles/Vol] 24.0 mmol/L Normal 21.0-32.0 [facility] Comment on above: Performed By: #### L 100.0100, L500.4050 ####[facility] [address] [place], [address] Creatinine [Mass/Vol] 1.06 mg/dL High 0.55-1.02 [facility] Comment on above: Result Comment: The validity of the calculated GFR GFRAA in patients over70 years has not been determined. Clinical correlation isessential. Performed By: #### L 100.0100, L500.4050 ####[facility] [address] [place], [address] ECRCL 55.00 ml/min Normal [facility] Comment on above: Performed By: #### L 100.0100, L500.4050 ####[facility] [address] [place], [address] EST GFR - AA 66 mL/min Normal >60 [facility] Comment on above: Result Comment: Afri can Lebanese GFR Calc Performed By: #### L 100.0100, L500.4050 ####[facility] [address] [place], [address] GAP 5 Normal 5-15 [facility] Comment on above: Performed By: #### L 100.0100, L500.4050 ####[facility] [address] [place], [address] GFR/1.73 sq M.predicted among non-blacks MDRD (S/P/Bld) [Vol rate/Area] 55 mL/min/{1.73_m2} Low >60 [facility] Comment on above: Result Comment: Non- GFR Calc Performed By: #### L 100.0100, L500.4050 ####[facility] [address] [place], [address] Globulin (S) [Mass/Vol] 2.9 g/dL Normal 2.2-4.2 [facility] Comment on above: Performed By: #### L 100.0100, L500.4050 ####[facility] [address] [place], [address] Glucose [Mass/Vol] 121 mg/dL High 74-106 [facility] Comment on above: Result Comment: Fast ing Glucose result from 100 to 125 mg/dLsuggests IMPAIRED HOMEOSTASIS per A.D.A. criteria. Performed By: #### L 100.0100, L500.4050 ####[facility] [address] [place], [address] Potassium [Moles/Vol] 3.5 mmol/L Normal 3.5-5.1 [facility] Comment on above: Performed By: #### L 100.0100, L500.4050 ####[facility] [address] [place], [address] Sodium [Moles/Vol] 138 mmol/L Normal 136-145 [facility] Comment on above: Performed By: #### L 100.0100, L500.4050 ####[facility] [address] [place], [address] T PROT 5.8 g/dL Low 6.4-8.2 [facility] Comment on above: Performed By: #### L 100.0100, L500.4050 ####[facility] [address] [place], [address] Urea nitrogen [Mass/Vol] 20 mg/dL High 7-18 [facility] Comment on above: Performed By: #### L 100.0100, L500.4050 ####[facility] [address] [place], [address] Discharge Instructionon Discharge Instruction Normal [facility] MR/POSTOP.ANEon 01-29-2024 MR/POSTOP.ANE Normal [facility] MR/RSJKUCJV1lh 01-29-2024 MR/POSTOPAN2 Normal [facility] Operative Reporton Operative Report Normal [facility] 12 Lead EKGon 01-28-2024 12 Lead EKG Normal [facility] Abdomen/Pelvis without Conto n 01-28-2024 Abdomen/Pelvis without Cont Normal [facility] Basic Metabolic Profile (BMP )on 01-28-2024 BUN/CRE 19.7 RATIO Normal 02-14 [facility] Comment on above: Order Comment: 1Y Performed By: #### L 500.3400, L500.2500, L501.5425, L100.0100, L503.6005, L501.2450 ####[facility] [address] [place], [address] CA,Total 9.5 mg/dL Normal 8.5-10.1 [facility] Comment on above: Order Comment: 1Y Performed By: #### L 500.3400, L500.2500, L501.5425, L100.0100, L503.6005, L501.2450 ####[facility] [address] [place], [address] Chloride [Moles/Vol] 104 mmol/L Normal 98-107 [facility] Comment on above: Order Comment: 1Y Performed By: #### L 500.3400, L500.2500, L501.5425, L100.0100, L503.6005, L501.2450 ####[facility] [address] [place], [address] CO2 [Moles/Vol] 28.0 mmol/L Normal 21.0-32.0 [facility] Comment on above: Order Comment: 1Y Performed By: #### L 500.3400, L500.2500, L501.5425, L100.0100, L503.6005, L501.2450 ####[facility] [address] [place], [address] Creatinine [Mass/Vol] 1.22 mg/dL High 0.55-1.02 [facility] Comment on above: Order Comment: 1Y Result Comment: The validity of the calculated GFR GFRAA in patients over70 years has not been determined. Clinical correlation isessential. Performed By: #### L 500.3400, L500.2500, L501.5425, L100.0100, L503.6005, L501.2450 ####[facility] [address] [place], [address] ECRCL 49.19 ml/min Normal [facility] Comment on above: Order Comment: 1Y Performed By: #### L 500.3400, L500.2500, L501.5425, L100.0100, L503.6005, L501.2450 ####[facility] [address] [place], [address] EST GFR - AA 56 mL/min Low >60 [facility] Comment on above: Order Comment: 1Y Result Comment: Afri can Lebanese GFR Calc Performed By: #### L 500.3400, L500.2500, L501.5425, L100.0100, L503.6005, L501.2450 ####[facility] [address] [place], [address] GAP 6 Normal 5-15 [facility] Comment on above: Order Comment: 1Y Performed By: #### L 500.3400, L500.2500, L501.5425, L100.0100, L503.6005, L501.2450 ####[facility] [address] [place], [address] GFR/1.73 sq M.predicted among non-blacks MDRD (S/P/Bld) [Vol rate/Area] 46 mL/min/{1.73_m2} Low >60 [facility] Comment on above: Order Comment: 1Y Result Comment: Non- GFR Calc Performed By: #### L 500.3400, L500.2500, L501.5425, L100.0100, L503.6005, L501.2450 ####[facility] [address] [place], [address] Glucose [Mass/Vol] 133 mg/dL High 74-106 [facility] Comment on above: Order Comment: 1Y Result Comment: Fast ing Glucose result greater than or equal to 126 mg/dLsuggests DIABETES MELLITUS per A.D.A. criteria. Performed By: #### L 500.3400, L500.2500, L501.5425, L100.0100, L503.6005, L501.2450 ####[facility] [address] [place], [address] Potassium [Moles/Vol] 3.8 mmol/L Normal 3.5-5.1 [facility] Comment on above: Order Comment: 1Y Performed By: #### L 500.3400, L500.2500, L501.5425, L100.0100, L503.6005, L501.2450 ####[facility] [address] [place], [address] Sodium [Moles/Vol] 138 mmol/L Normal 136-145 [facility] Comment on above: Order Comment: 1Y Performed By: #### L 500.3400, L500.2500, L501.5425, L100.0100, L503.6005, L501.2450 ####[facility] [address] [place], [address] Urea nitrogen [Mass/Vol] 24 mg/dL High 7-18 [facility] Comment on above: Order Comment: 1Y Performed By: #### L 500.3400, L500.2500, L501.5425, L100.0100, L503.6005, L501.2450 ####[facility] [address] [place], [address] CBC W/Diff, Automatedon 10-0 2-4 Absolute Lymph 1.44 X10 3/uL Normal 0.83-4.51 [facility] Comment on above: Performed By: #### L 500.3400, L500.2500, L501.5425, L100.0100, L503.6005, L501.2450 ####[facility] [address] [place], [address] Absolute Neut 16.1 X10 3/uL High 2.0-7.7 [facility] Comment on above: Performed By: #### L 500.3400, L500.2500, L501.5425, L100.0100, L503.6005, L501.2450 ####[facility] [address] [place], [address] Basophils/100 WBC (Bld) 0.4 % Normal 0-1 [facility] Comment on above: Performed By: #### L 500.3400, L500.2500, L501.5425, L100.0100, L503.6005, L501.2450 ####[facility] [address] [place], [address] Eosinophils/100 WBC (Bld) 0.6 % Normal 0-5 [facility] Comment on above: Performed By: #### L 500.3400, L500.2500, L501.5425, L100.0100, L503.6005, L501.2450 ####[facility] [address] [place], [address] Erythrocyte distribution width (RBC) [Ratio] 13.3 % Normal 11.6-14.6 [facility] Comment on above: Performed By: #### L 500.3400, L500.2500, L501.5425, L100.0100, L503.6005, L501.2450 ####[facility] [address] [place], [address] Hematocrit (Bld) [Volume fraction] 39.8 % Normal 37-47 [facility] Comment on above: Performed By: #### L 500.3400, L500.2500, L501.5425, L100.0100, L503.6005, L501.2450 ####[facility] [address] [place], [address] Hemoglobin (Bld) [Mass/Vol] 13.2 g/dL Normal 12.0-15.0 [facility] Comment on above: Performed By: #### L 500.3400, L500.2500, L501.5425, L100.0100, L503.6005, L501.2450 ####[facility] [address] [place], [address] IG% 2.200 High 0.0-0.9 [facility] Comment on above: Result Comment: IG% - Immature Granulocytes (promyelocytes, myelocytes andmetamyelocytes) > 1% indicates that a LEFT SHIFT is Present. Performed By: #### L 500.3400, L500.2500, L501.5425, L100.0100, L503.6005, L501.2450 ####[facility] [address] [place], [address] Lymphocytes/100 WBC (Bld) 7.5 % Low 19-41 [facility] Comment on above: Performed By: #### L 500.3400, L500.2500, L501.5425, L100.0100, L503.6005, L501.2450 ####[facility] [address] [place], [address] MCH (RBC) [Entitic mass] 32.2 pg High 27.0-32.0 [facility] Comment on above: Performed By: #### L 500.3400, L500.2500, L501.5425, L100.0100, L503.6005, L501.2450 ####[facility] [address] [place], [address] MCHC (RBC) [Mass/Vol] 33.2 g/dL Normal 32-36 [facility] Comment on above: Performed By: #### L 500.3400, L500.2500, L501.5425, L100.0100, L503.6005, L501.2450 ####[facility] [address] [place], [address] MCV (RBC) [Entitic vol] 97.1 fL Normal 81-99 [facility] Comment on above: Performed By: #### L 500.3400, L500.2500, L501.5425, L100.0100, L503.6005, L501.2450 ####[facility] [address] [place], [address] Monocytes/100 WBC (Bld) 5.0 % Normal 0-10 [facility] Comment on above: Performed By: #### L 500.3400, L500.2500, L501.5425, L100.0100, L503.6005, L501.2450 ####[facility] [address] [place], [address] Neutrophils/100 WBC (Bld) 84.3 % High 47-70 [facility] Comment on above: Performed By: #### L 500.3400, L500.2500, L501.5425, L100.0100, L503.6005, L501.2450 ####[facility] [address] [place], [address] Nucleated RBC (Bld) [#/Vol] 0 10*3/uL Normal 0-5 [facility] Comment on above: Performed By: #### L 500.3400, L500.2500, L501.5425, L100.0100, L503.6005, L501.2450 ####[facility] [address] [place], [address] Platelet mean volume (Bld) [Entitic vol] 9.9 fL Normal 6.2-12.0 [facility] Comment on above: Performed By: #### L 500.3400, L500.2500, L501.5425, L100.0100, L503.6005, L501.2450 ####[facility] [address] [place], [address] Platelets (Bld) [#/Vol] 417 10*3/uL Normal 150-450 [facility] Comment on above: Performed By: #### L 500.3400, L500.2500, L501.5425, L100.0100, L503.6005, L501.2450 ####[facility] [address] [place], [address] RBC (Bld) [#/Vol] 4.10 10*6/uL Low 4.2-5.4 [facility] Comment on above: Performed By: #### L 500.3400, L500.2500, L501.5425, L100.0100, L503.6005, L501.2450 ####[facility] [address] [place], [address] RDW SD 47.6 fl High 35.1-43.9 [facility] Comment on above: Performed By: #### L 500.3400, L500.2500, L501.5425, L100.0100, L503.6005, L501.2450 ####[facility] [address] [place], [address] WBC (Bld) [#/Vol] 19.1 10*3/uL High 4.4-11.0 [facility] Comment on above: Performed By: #### L 500.3400, L500.2500, L501.5425, L100.0100, L503.6005, L501.2450 ####[facility] [address] [place], [address] Emergency Department Summary on 01-28-2024 Emergency Department Summary Normal [facility] Gallbladderon 01-28-2024 Gallbladder Normal [facility] L501.4020on 01-28-2024 TROPONIN-I HS 5 pg/mL Normal 3.0-54.0 [facility] Comment on above: Result Comment: Plea Note: New Test Units and Gender Specific Reference Ranges. For more information see Policy Stat Procedure Union High Sensitivity Troponin (TNIH) and attachments. Performed By: #### L 501.4020 ####[facility] [address] [place] [id number] L501.5425on 01-28-2024 TROPONIN-I HS < 3 Low 3.0-54.0 [facility] Comment on above: Order Comment: 1Y Result Comment: Plea se Note: New Test Units and Gender Specific Reference Ranges. For more information see Policy Stat Procedure [place] High Sensitivity Troponin (TNIH) and attachments. Performed By: #### L 500.3400, L500.2500, L501.5425, L100.0100, L503.6005, L501.2450 ####[facility] [address] [place], [address] Lactic Acidon 01-28-2024 Lactate [Moles/Vol] 1.3 mmol/L Normal 0.4-1.9 [facility] Comment on above: Performed By: #### L 503.6005 ####[facility] [address] [place], [address] Lactate [Moles/Vol] 2.5 mmol/L Invalid Interpretation Code 0.4-1.9 [facility] Comment on above: Order Comment: Y Result Comment: Crit ical Result(s) Called at: 16:45:14 01/28/2024 by:NOEMI MAURICIO TO RANDOLPH. Results read back by same. Performed By: #### L 500.3400, L500.2500, L501.5425, L100.0100, L503.6005, L501.2450 ####[facility] [address] [place], [address] Lipaseon 01-28-2024 Lipase [Catalytic activity/Vol] 28 U/L Normal 13-75 [facility] Comment on above: Order Comment: 1Y Result Comment: Plea se note:LIPASE revised reference range effective 22.New Lipase methodology. Expected to produce lower valuesthan the previous assay method.NEW Reference Range: 13 - 75 U/L Performed By: #### L 500.3400, L500.2500, L501.5425, L100.0100, L503.6005, L501.2450 ####[facility] [address] [place], [address] Liver Profileon 01-28-2024 Albumin [Mass/Vol] 3.7 g/dL Normal 3.2-5.0 [facility] Comment on above: Order Comment: 1Y Performed By: #### L 500.3400, L500.2500, L501.5425, L100.0100, L503.6005, L501.2450 ####[facility] [address] [place], [address] ALK P 62 U/L Normal 45-117 [facility] Comment on above: Order Comment: 1Y Performed By: #### L 500.3400, L500.2500, L501.5425, L100.0100, L503.6005, L501.2450 ####[facility] [address] [place], [address] ALT [Catalytic activity/Vol] 19 U/L Normal 13-56 [facility] Comment on above: Order Comment: 1Y Performed By: #### L 500.3400, L500.2500, L501.5425, L100.0100, L503.6005, L501.2450 ####[facility] [address] [place], [address] AST [Catalytic activity/Vol] 10 U/L Low 15-37 [facility] Comment on above: Order Comment: 1Y Performed By: #### L 500.3400, L500.2500, L501.5425, L100.0100, L503.6005, L501.2450 ####[facility] [address] [place], [address] Bilirubin [Mass/Vol] 0.50 mg/dL Normal 0.20-1.00 [facility] Comment on above: Order Comment: 1Y Result Comment: For patients on eltrombopag therapy, use of Dimension [place] TBIL is not recommended. Performed By: #### L 500.3400, L500.2500, L501.5425, L100.0100, L503.6005, L501.2450 ####[facility] [address] [place], [address] Bilirubin.direct [Mass/Vol] 0.16 mg/dL Normal 0.00-0.30 [facility] Comment on above: Order Comment: 1Y Performed By: #### L 500.3400, L500.2500, L501.5425, L100.0100, L503.6005, L501.2450 ####[facility] [address] [place], [address] Globulin (S) [Mass/Vol] 3.5 g/dL Normal 2.2-4.2 [facility] Comment on above: Order Comment: 1Y Performed By: #### L 500.3400, L500.2500, L501.5425, L100.0100, L503.6005, L501.2450 ####[facility] [address] [place], [address] T PROT 7.2 g/dL Normal 6.4-8.2 [facility] Comment on above: Order Comment: 1Y Performed By: #### L 500.3400, L500.2500, L501.5425, L100.0100, L503.6005, L501.2450 ####[facility] [address] [place], [address] Urinalysis, Completeon 01-27 BACTERIA RARE Normal None Seen [facility] Comment on above: Order Comment: COLLE CTOR TO SPECIFY Performed By: #### L 400.0001 ####[facility] [address] [place], [address] EPI,SQUAMOUS 0-5 SEEN Normal 5-10 [facility] Comment on above: Order Comment: COLLE CTOR TO SPECIFY Performed By: #### L 400.0001 ####[facility] [address] [place], [address] Mucus Ql (Urine sed) 1+ /hpf Normal [facility] Comment on above: Order Comment: INGRID CTOR TO SPECIFY Performed By: #### L 400.0001 ####[facility] [address] [place], [place], [address] WBC 0-5 SEEN Normal 0-5 [facility] Comment on above: Order Comment: [facility] CTOR TO SPECIFY Performed By: #### L 400.0001 ####[facility] [address] [place], [place], [id number] Lumbar Spine 2 or 3 Viewson 01-14-2024 Lumbar Spine 2 or 3 Views Normal [facility] Thoracic Spine 3 Viewson Thoracic Spine 3 Views Normal [facility] Absolute lymphocyte countOrd ered By: Felicia Marrufo on 01-08-2024 Lymphocytes Auto (Unsp spec) [#/Vol] 1.39 10*3/uL 0.83-4.51 [facility] Absolute neutrophil countOrd ered By: Felicia UmanaNiru on 01-08-2024 Neutrophils (Bld) [#/Vol] 6.1 10*3/uL 2.0-7.7 [facility] Alanine aminotransferase (AL T) assayOrdered By: Felicia Marrufo on 01-08-2024 ALT [Catalytic activity/Vol] 18 U/L 13-56 [facility] Albumin to globulin ratioOrd ered By: Felicia UmanaNiru on 01-08-2024 Albumin/Globulin [Mass ratio] 1.1 {ratio} 0.9-2.4 [facility] Alkaline phosphataseOrdered By: Felicia Marrufo on 01-08-2024 ALP [Catalytic activity/Vol] 51 U/L 45-117 [facility] Automated lymphocyte count a s percentage of total leukocytesOrdered By: Felicia Marrufo on 01-08-2024 Lymphocytes/100 WBC Auto (Unsp spec) 16.7 % Low 19-41 [facility] Basophil percentageOrdered B y: Felicia Niru on 01-08-2024 Basophils/100 WBC (Bld) 0.4 % 0-1 [facility] Bilirubin, totalOrdered By: Felicia Marrufo on 01-08-2024 Bilirubin [Mass/Vol] 0.40 mg/dL 0.20-1.00 [facility] Comment on above: For patients on eltr ombopag therapy, use of [employer] [place] TBIL is not recommended. Blood urea nitrogen (BUN)/cr eatinine ratioOrdered By: Felicia Marrufo on 01-08-2024 Urea nitrogen/Creatinine [Mass ratio] 21.8 mg/mg High 10-20 [facility] CBC W/Diff, Automatedon 12-27 Absolute Lymph 1.39 X10 3/uL Normal 0.83-4.51 [facility] Comment on above: Performed By: #### L 100.0100, L500.4050 ####[facility] [address] [place], [address] Absolute Neut 6.1 X10 3/uL Normal 2.0-7.7 [facility] Comment on above: Performed By: #### L 100.0100, L500.4050 ####[facility] [address] [place], [address] Basophils/100 WBC (Bld) 0.4 % Normal 0-1 [facility] Comment on above: Performed By: #### L 100.0100, L500.4050 ####[facility] [address] [place], [address] Eosinophils/100 WBC (Bld) 2.2 % Normal 0-5 [facility] Comment on above: Performed By: #### L 100.0100, L500.4050 ####[facility] [address] [place], [address] Erythrocyte distribution width (RBC) [Ratio] 13.3 % Normal 11.6-14.6 [facility] Comment on above: Performed By: #### L 100.0100, L500.4050 ####[facility] [address] [place], [address] Hematocrit (Bld) [Volume fraction] 33.8 % Low 37-47 [facility] Comment on above: Performed By: #### L 100.0100, L500.4050 ####[facility] [address] [place], [address] Hemoglobin (Bld) [Mass/Vol] 11.1 g/dL Low 12.0-15.0 [facility] Comment on above: Performed By: #### L 100.0100, L500.4050 ####[facility] [address] [place], [address] IG% 1.100 High 0.0-0.9 [facility] Comment on above: Result Comment: IG% - Immature Granulocytes (promyelocytes, myelocytes andmetamyelocytes) > 1% indicates that a LEFT SHIFT is Present. Performed By: #### L 100.0100, L500.4050 ####[facility] [address] [place], [address] Lymphocytes/100 WBC (Bld) 16.7 % Low 19-41 [facility] Comment on above: Performed By: #### L 100.0100, L500.4050 ####[facility] [address] [place], [address] MCH (RBC) [Entitic mass] 32.4 pg High 27.0-32.0 [facility] Comment on above: Performed By: #### L 100.0100, L500.4050 ####[facility] [address] [place], [address] MCHC (RBC) [Mass/Vol] 32.8 g/dL Normal 32-36 [facility] Comment on above: Performed By: #### L 100.0100, L500.4050 ####[facility] [address] [place], [address] MCV (RBC) [Entitic vol] 98.5 fL Normal 81-99 [facility] Comment on above: Performed By: #### L 100.0100, L500.4050 ####[facility] [address] [place], [address] Monocytes/100 WBC (Bld) 6.4 % Normal 0-10 [facility] Comment on above: Performed By: #### L 100.0100, L500.4050 ####[facility] [address] [place], [address] Neutrophils/100 WBC (Bld) 73.2 % High 47-70 [facility] Comment on above: Performed By: #### L 100.0100, L500.4050 ####[facility] [address] [place], [address] Nucleated RBC (Bld) [#/Vol] 0 10*3/uL Normal 0-5 [facility] Comment on above: Performed By: #### L 100.0100, L500.4050 ####[facility] [address] [place], [address] Platelet mean volume (Bld) [Entitic vol] 9.2 fL Normal 6.2-12.0 [facility] Comment on above: Performed By: #### L 100.0100, L500.4050 ####[facility] [address] [place], [address] Platelets (Bld) [#/Vol] 317 10*3/uL Normal 150-450 [facility] Comment on above: Performed By: #### L 100.0100, L500.4050 ####[facility] [address] [place], [address] RBC (Bld) [#/Vol] 3.43 10*6/uL Low 4.2-5.4 [facility] Comment on above: Performed By: #### L 100.0100, L500.4050 ####[facility] [address] [place], [address] RDW SD 47.8 fl High 35.1-43.9 [facility] Comment on above: Performed By: #### L 100.0100, L500.4050 ####[facility] [address] [place], [address] WBC (Bld) [#/Vol] 8.3 10*3/uL Normal 4.4-11.0 [facility] Comment on above: Performed By: #### L 100.0100, L500.4050 ####[facility] [address] [place], [address] Carbon dioxide measurementOr dered By: Felicia Marrufo on 01-08-2024 CO2 [Moles/Vol] 27.0 mmol/L 21.0-32.0 [facility] Chloride measurementOrdered By: Felicia Marrufo on 01-08-2024 Chloride [Moles/Vol] 108 mmol/L High 98-107 [facility] Comprehensive Metabolic Prof ilon 01-08-2024 Albumin [Mass/Vol] 3.1 g/dL Low 3.2-5.0 [facility] Comment on above: Performed By: #### L 100.0100, L500.4050 ####[facility] [address] [place], [address] Albumin/Globulin [Mass ratio] 1.1 {ratio} Normal 0.9-2.4 [facility] Comment on above: Performed By: #### L 100.0100, L500.4050 ####[facility] [address] [place], [address] ALK P 51 U/L Normal 45-117 [facility] Comment on above: Performed By: #### L 100.0100, L500.4050 ####[facility] [address] [place], [address] ALT [Catalytic activity/Vol] 18 U/L Normal 13-56 [facility] Comment on above: Performed By: #### L 100.0100, L500.4050 ####[facility] [address] [place], [address] AST [Catalytic activity/Vol] 13 U/L Low 15-37 [facility] Comment on above: Performed By: #### L 100.0100, L500.4050 ####[facility] [address] [place], [address] Bilirubin [Mass/Vol] 0.40 mg/dL Normal 0.20-1.00 [facility] Comment on above: Result Comment: For patients on eltrombopag therapy, use of Dimension [place] TBIL is not recommended. Performed By: #### L 100.0100, L500.4050 ####[facility] [address] [place], [address] BUN/CRE 21.8 RATIO High 10-20 [facility] Comment on above: Performed By: #### L 100.0100, L500.4050 ####[facility] [address] [place], [address] CA,Total 9.0 mg/dL Normal 8.5-10.1 [facility] Comment on above: Performed By: #### L 100.0100, L500.4050 ####[facility] [address] [place], [address] Chloride [Moles/Vol] 108 mmol/L High 98-107 [facility] Comment on above: Performed By: #### L 100.0100, L500.4050 ####[facility] [address] [place], [address] CO2 [Moles/Vol] 27.0 mmol/L Normal 21.0-32.0 [facility] Comment on above: Performed By: #### L 100.0100, L500.4050 ####[facility] [address] [place], [address] Creatinine [Mass/Vol] 1.10 mg/dL High 0.55-1.02 [facility] Comment on above: Result Comment: The validity of the calculated GFR GFRAA in patients over70 years has not been determined. Clinical correlation isessential. Performed By: #### L 100.0100, L500.4050 ####[facility] [address] [place], [address] ECRCL 52.48 ml/min Normal [facility] Comment on above: Performed By: #### L 100.0100, L500.4050 ####[facility] [address] [place], [address] EST GFR - AA 63 mL/min Normal >60 [facility] Comment on above: Result Comment: Afri can Lebanese GFR Calc Performed By: #### L 100.0100, L500.4050 ####[facility] [address] [place], [address] GAP 5 Normal 5-15 [facility] Comment on above: Performed By: #### L 100.0100, L500.4050 ####[facility] [address] [place], [address] GFR/1.73 sq M.predicted among non-blacks MDRD (S/P/Bld) [Vol rate/Area] 52 mL/min/{1.73_m2} Low >60 [facility] Comment on above: Result Comment: Non- GFR Calc Performed By: #### L 100.0100, L500.4050 ####[facility] [address] [place], [address] Globulin (S) [Mass/Vol] 2.9 g/dL Normal 2.2-4.2 [facility] Comment on above: Performed By: #### L 100.0100, L500.4050 ####[facility] [address] [place], [address] Glucose [Mass/Vol] 119 mg/dL High 74-106 [facility] Comment on above: Result Comment: Fast ing Glucose result from 100 to 125 mg/dLsuggests IMPAIRED HOMEOSTASIS per A.D.A. criteria. Performed By: #### L 100.0100, L500.4050 ####[facility] [address] [place], [address] Potassium [Moles/Vol] 3.9 mmol/L Normal 3.5-5.1 [facility] Comment on above: Performed By: #### L 100.0100, L500.4050 ####[facility] [address] [place], [address] Sodium [Moles/Vol] 140 mmol/L Normal 136-145 [facility] Comment on above: Performed By: #### L 100.0100, L500.4050 ####[facility] [address] [place], [address] T PROT 6.0 g/dL Low 6.4-8.2 [facility] Comment on above: Performed By: #### L 100.0100, L500.4050 ####[facility] [address] [place], [address] Urea nitrogen [Mass/Vol] 24 mg/dL High 7-18 [facility] Comment on above: Performed By: #### L 100.0100, L500.4050 ####[facility] [address] [place], [address] Eosinophil percentageOrdered By: Felicia Marrufo on 01-08-2024 Eosinophils/100 WBC (Bld) 2.2 % 0-5 [facility] Erythrocyte distribution wid th ratioOrdered By: Felicia Marrufo on 01-08-2024 Erythrocyte distribution width (RBC) [Ratio] 13.3 % 11.6-14.6 [facility] Erythrocyte distribution wid th standard deviationOrdered By: Felicia Marrufo on 01-08-2024 Erythrocyte distribution width (RBC) [Entitic vol] 47.8 fL High 35.1-43.9 [facility] Erythrocyte distribution width (RBC) [Ratio] 47.8 fl High 35.1-43.9 [facility] Estimated glomerular filtrat ion rate (GFR) AmericanOrdered By: Felicia Marrufo on 01-08-2024 Estimated GFR (MDRD) Amer 63 mL/min >60 [facility] Comment on above: GFR Calc Estimation of creatinine roni aranceOrdered By: Felicia Marrufo on 01-08-2024 Estimated Creatinine Clearance Calc 52.48 ml/min [facility] Glomerular filtration rate ( GFR) estimationOrdered By: Felicia Marrufo on 01-08-2024 Estimated GFR (MDRD) Non-Af Amer 52 mL/min Low >60 [facility] Comment on above: Non- GFR Calc GFR/1.73 sq M.predicted among non-blacks MDRD (S/P/Bld) [Vol rate/Area] 52 mL/min/{1.73_m2} Low >60 [facility] Comment on above: Non- GFR Calc Glucose measurementOrdered B y: Felicia Marrufo on 01-08-2024 Glucose [Mass/Vol] 119 mg/dL High 74-106 [facility] Comment on above: Fasting Glucose resu lt from 100 to 125 mg/dL suggests IMPAIRED HOMEOSTASIS per A.D.A. criteria. Hematocrit Auto (Bld) [Volum e fraction]Ordered By: Felicia Marrufo on 01-08-2024 Hematocrit (Bld) [Volume fraction] 33.8 % Low 37-47 [facility] Hemoglobin measurementOrdere d By: Felicia Marrufo on 01-08-2024 Hemoglobin (Bld) [Mass/Vol] 11.1 g/dL Low 12.0-15.0 [facility] Immature granulocytes/100 WB C Auto (Bld)Ordered By: Felicia Marrufo on 01-08-2024 Immature granulocytes/100 WBC (Bld) 1.100 % High 0.0-0.9 [facility] Comment on above: IG% - Immature Granu locytes (promyelocytes, myelocytes and metamyelocytes) > 1% indicates that a LEFT SHIFT is Present. Laboratory - Chemistry and C hemistry - challengeOrdered By: Felicia Marrufo on 01-08-2024 AST [Catalytic activity/Vol] 13 U/L Low 15-37 [facility] Lymphocytes Auto (Unsp spec) [#/Vol]Ordered By: Felicia Marrufo on 01-08-2024 Lymphocytes (Bld) [#/Vol] 1.39 10*3/uL 0.83-4.51 [facility] Lymphocytes/100 WBC Auto (Un sp spec)Ordered By: Felicia Marrufo on 01-08-2024 Lymphocytes/100 WBC (Bld) 16.7 % Low 19-41 [facility] MCV (mean corpuscular volume ) determinationOrdered By: Felicia Marrufo on 01-08-2024 MCV (RBC) [Entitic vol] 98.5 fL 81-99 [facility] Mean corpuscular hemoglobin (MCH) determinationOrdered By: Felicia Marrufo on 01-08-2024 MCH (RBC) [Entitic mass] 32.4 pg High 27.0-32.0 [facility] Mean corpuscular hemoglobin concentration (MCHC) determinationOrdered By: Felicia Marrufo on 01-08-2024 MCHC (RBC) [Mass/Vol] 32.8 g/dL 32-36 [facility] Mean platelet volume determi nationOrdered By: Felicia Marrufo on 01-08-2024 Platelet mean volume (Bld) [Entitic vol] 9.2 fL 6.2-12.0 [facility] Monocyte percentageOrdered B y: Felicia Marrufo on 01-08-2024 Monocytes/100 WBC (Bld) 6.4 % 0-10 [facility] Neutrophil percentageOrdered By: Felicia Marrufo on 01-08-2024 Neutrophils/100 WBC (Bld) 73.2 % High 47-70 [facility] Nucleated red blood cell per centageOrdered By: Felicia Marrufo on 01-08-2024 Nucleated RBC/100 WBC (Bld) [Ratio] 0 % 0-5 [facility] Oncology Visit Reporton 12-27 Oncology Visit Report Normal [facility] Platelet countOrdered By: Jaun Marrufo on 01-08-2024 Platelets (Bld) [#/Vol] 317 10*3/uL 150-450 [facility] Potassium measurementOrdered By: Felicia Marrufo on 01-08-2024 Potassium [Moles/Vol] 3.9 mmol/L 3.5-5.1 [facility] RBC Auto (Bld) [#/Vol]Ordere d By: Felicia Marrufo on 01-08-2024 RBC (Bld) [#/Vol] 3.43 10*6/uL Low 4.2-5.4 [facility] Serum albumin measurementOrd ered By: Felicia Marrufo on 01-08-2024 Albumin [Mass/Vol] 3.1 g/dL Low 3.2-5.0 [facility] Serum anion gap measurementO rdered By: Felicia Marrufo on 01-08-2024 Anion gap [Moles/Vol] 5 mmol/L 5-15 [facility] Serum globulin measurementOr dered By: Felicia Marrufo on 01-08-2024 Globulin (S) [Mass/Vol] 2.9 g/dL 2.2-4.2 [facility] Serum or plasma calcium breana urement (mass/volume)Ordered By: Felicia Marrufo on 01-08-2024 Calcium [Mass/Vol] 9.0 mg/dL 8.5-10.1 [facility] Serum or plasma creatinine m easurement (mass/volume)Ordered By: Felicia Marrufo on 01-08-2024 Creatinine [Mass/Vol] 1.10 mg/dL High 0.55-1.02 [facility] Comment on above: The validity of the calculated GFR & GFRAA in patients over 70 years has not been determined. Clinical correlation is essential. Serum or plasma urea nitroge n measurement (mass/volume)Ordered By: Felicia Marrufo on 01-08-2024 Urea nitrogen [Mass/Vol] 24 mg/dL High 7-18 [facility] Sodium levelOrdered By: Felicia Marrufo on 01-08-2024 Sodium [Moles/Vol] 140 mmol/L 136-145 [facility] Total proteinOrdered By: Cristino Marrufo on 01-08-2024 Protein [Mass/Vol] 6.0 g/dL Low 6.4-8.2 [facility] White blood cell (WBC) count Ordered By: Felicia Marrufo on 01-08-2024 WBC (Bld) [#/Vol] 8.3 10*3/uL 4.4-11.0 [facility] CBC W/Diff, Automatedon Absolute Lymph 1.50 X10 3/uL Normal 0.83-4.51 [facility] Comment on above: Performed By: #### L 500.4050, L100.0100 ####[facility] [address] [place], [address] Absolute Neut 4.8 X10 3/uL Normal 2.0-7.7 [facility] Comment on above: Performed By: #### L 500.4050, L100.0100 ####[facility] [address] [place], [address] Basophils/100 WBC (Bld) 0.6 % Normal 0-1 [facility] Comment on above: Performed By: #### L 500.4050, L100.0100 ####[facility] [address] [place], [address] Eosinophils/100 WBC (Bld) 1.8 % Normal 0-5 [facility] Comment on above: Performed By: #### L 500.4050, L100.0100 ####[facility] [address] [place], [address] Erythrocyte distribution width (RBC) [Ratio] 13.3 % Normal 11.6-14.6 [facility] Comment on above: Performed By: #### L 500.4050, L100.0100 ####[facility] [address] [place], [address] Hematocrit (Bld) [Volume fraction] 37.4 % Normal 37-47 [facility] Comment on above: Performed By: #### L 500.4050, L100.0100 ####[facility] [address] [place], [address] Hemoglobin (Bld) [Mass/Vol] 11.9 g/dL Low 12.0-15.0 [facility] Comment on above: Performed By: #### L 500.4050, L100.0100 ####[facility] [address] [place], [address] IG% 1.700 High 0.0-0.9 [facility] Comment on above: Result Comment: IG% - Immature Granulocytes (promyelocytes, myelocytes andmetamyelocytes) > 1% indicates that a LEFT SHIFT is Present. Performed By: #### L 500.4050, L100.0100 ####[facility] [address] [place], [address] Lymphocytes/100 WBC (Bld) 21.2 % Normal 19-41 [facility] Comment on above: Performed By: #### L 500.4050, L100.0100 ####[facility] [address] [place], [address] MCH (RBC) [Entitic mass] 31.6 pg Normal 27.0-32.0 [facility] Comment on above: Performed By: #### L 500.4050, L100.0100 ####[facility] [address] [place], [address] MCHC (RBC) [Mass/Vol] 31.8 g/dL Low 32-36 [facility] Comment on above: Performed By: #### L 500.4050, L100.0100 ####[facility] [address] [place], [address] MCV (RBC) [Entitic vol] 99.5 fL High 81-99 [facility] Comment on above: Performed By: #### L 500.4050, L100.0100 ####[facility] [address] [place], [address] Monocytes/100 WBC (Bld) 6.5 % Normal 0-10 [facility] Comment on above: Performed By: #### L 500.4050, L100.0100 ####[facility] [address] [place], [address] Neutrophils/100 WBC (Bld) 68.2 % Normal 47-70 [facility] Comment on above: Performed By: #### L 500.4050, L100.0100 ####[facility] [address] [place], [address] Nucleated RBC (Bld) [#/Vol] 0 10*3/uL Normal 0-5 [facility] Comment on above: Performed By: #### L 500.4050, L100.0100 ####[facility] [address] [place], [address] Platelet mean volume (Bld) [Entitic vol] 9.2 fL Normal 6.2-12.0 [facility] Comment on above: Performed By: #### L 500.4050, L100.0100 ####[facility] [address] [place], [address] Platelets (Bld) [#/Vol] 381 10*3/uL Normal 150-450 [facility] Comment on above: Performed By: #### L 500.4050, L100.0100 ####[facility] [address] [place], [address] RBC (Bld) [#/Vol] 3.76 10*6/uL Low 4.2-5.4 [facility] Comment on above: Performed By: #### L 500.4050, L100.0100 ####[facility] [address] [place], [address] RDW SD 48.4 fl High 35.1-43.9 [facility] Comment on above: Performed By: #### L 500.4050, L100.0100 ####[facility] [address] [place], [address] WBC (Bld) [#/Vol] 7.1 10*3/uL Normal 4.4-11.0 [facility] Comment on above: Performed By: #### L 500.4050, L100.0100 ####[facility] [address] [place], [address] Comprehensive Metabolic Prof [facility] 01-02-2024 Albumin [Mass/Vol] 3.3 g/dL Normal 3.2-5.0 [facility] Comment on above: Performed By: #### L 500.4050, L100.0100 ####[facility] [address] [place], [address] Albumin/Globulin [Mass ratio] 1.1 {ratio} Normal 0.9-2.4 [facility] Comment on above: Performed By: #### L 500.4050, L100.0100 ####[facility] [address] [place], [address] ALK P 53 U/L Normal 45-117 [facility] Comment on above: Performed By: #### L 500.4050, L100.0100 ####[facility] [address] [place], [address] ALT [Catalytic activity/Vol] 18 U/L Normal 13-56 [facility] Comment on above: Performed By: #### L 500.4050, L100.0100 ####[facility] [address] [place], [address] AST [Catalytic activity/Vol] 15 U/L Normal 15-37 [facility] Comment on above: Performed By: #### L 500.4050, L100.0100 ####[facility] [address] [place], [address] Bilirubin [Mass/Vol] 0.40 mg/dL Normal 0.20-1.00 [facility] Comment on above: Result Comment: For patients on eltrombopag therapy, use of Dimension [place] TBIL is not recommended. Performed By: #### L 500.4050, L100.0100 ####[facility] [address] [place], [address] BUN/CRE 19.8 RATIO Normal 10-20 [facility] Comment on above: Performed By: #### L 500.4050, L100.0100 ####[facility] [address] [place], [address] CA,Total 9.1 mg/dL Normal 8.5-10.1 [facility] Comment on above: Performed By: #### L 500.4050, L100.0100 ####[facility] [address] [place], [address] Chloride [Moles/Vol] 110 mmol/L High 98-107 [facility] Comment on above: Performed By: #### L 500.4050, L100.0100 ####[facility] [address] [place], [address] CO2 [Moles/Vol] 28.0 mmol/L Normal 21.0-32.0 [facility] Comment on above: Performed By: #### L 500.4050, L100.0100 ####[facility] [address] [place], [address] Creatinine [Mass/Vol] 1.21 mg/dL High 0.55-1.02 [facility] Comment on above: Result Comment: The validity of the calculated GFR GFRAA in patients over70 years has not been determined. Clinical correlation isessential. Performed By: #### L 500.4050, L100.0100 ####[facility] [address] [place], [address] EST GFR - AA 57 mL/min Low >60 [facility] Comment on above: Result Comment: Afri can Lebanese GFR Calc Performed By: #### L 500.4050, L100.0100 ####[facility] [address] [place], [address] GAP 3 Low 5-15 [facility] Comment on above: Performed By: #### L 500.4050, L100.0100 ####[facility] [address] [place], [address] GFR/1.73 sq M.predicted among non-blacks MDRD (S/P/Bld) [Vol rate/Area] 47 mL/min/{1.73_m2} Low >60 [facility] Comment on above: Result Comment: Non- GFR Calc Performed By: #### L 500.4050, L100.0100 ####[facility] [address] [place], [address] Globulin (S) [Mass/Vol] 3.0 g/dL Normal 2.2-4.2 [facility] Comment on above: Performed By: #### L 500.4050, L100.0100 ####[facility] [address] [place], [address] Glucose [Mass/Vol] 89 mg/dL Normal 74-106 [facility] Comment on above: Performed By: #### L 500.4050, L100.0100 ####[facility] [address] [place], [address] Potassium [Moles/Vol] 3.7 mmol/L Normal 3.5-5.1 [facility] Comment on above: Performed By: #### L 500.4050, L100.0100 ####[facility] [address] [place], [address] Sodium [Moles/Vol] 141 mmol/L Normal 136-145 [facility] Comment on above: Performed By: #### L 500.4050, L100.0100 ####[facility] [address] [place], [address] T PROT 6.3 g/dL Low 6.4-8.2 [facility] Comment on above: Performed By: #### L 500.4050, L100.0100 ####[facility] [address] [place], [address] Urea nitrogen [Mass/Vol] 24 mg/dL High 7-18 [facility] Comment on above: Performed By: #### L 500.4050, L100.0100 ####[facility] [address] [place], [address] Internal Medicine Office Vis iton 11-24-2023 Internal Medicine Office Visit Normal [facility] Breast Bilateral W/O and Won 11-21-2023 Breast Bilateral W/O and W Normal [facility] CBC W/Diff, Automatedon 07-2 Absolute Lymph 1.67 X10 3/uL Normal 0.83-4.51 [facility] Comment on above: Performed By: #### L 100.0100, L500.4050 ####[facility] [address] [place], [address] Absolute Neut 7.9 X10 3/uL High 2.0-7.7 [facility] Comment on above: Performed By: #### L 100.0100, L500.4050 ####[facility] [address] [place], [address] Basophils/100 WBC (Bld) 0.6 % Normal 0-1 [facility] Comment on above: Performed By: #### L 100.0100, L500.4050 ####[facility] [address] [place], [address] Eosinophils/100 WBC (Bld) 0.9 % Normal 0-5 [facility] Comment on above: Performed By: #### L 100.0100, L500.4050 ####[facility] [address] [place], [address] Erythrocyte distribution width (RBC) [Ratio] 12.8 % Normal 11.6-14.6 [facility] Comment on above: Performed By: #### L 100.0100, L500.4050 ####[facility] [address] [place], [address] Hematocrit (Bld) [Volume fraction] 38.1 % Normal 37-47 [facility] Comment on above: Performed By: #### L 100.0100, L500.4050 ####[facility] [address] [place], [address] Hemoglobin (Bld) [Mass/Vol] 12.5 g/dL Normal 12.0-15.0 [facility] Comment on above: Performed By: #### L 100.0100, L500.4050 ####[facility] [address] [place], [address] IG% 0.800 Normal 0.0-0.9 [facility] Comment on above: Result Comment: IG% - Immature Granulocytes (promyelocytes, myelocytes andmetamyelocytes) > 1% indicates that a LEFT SHIFT is Present. Performed By: #### L 100.0100, L500.4050 ####[facility] [address] [place], [address] Lymphocytes/100 WBC (Bld) 15.9 % Low 19-41 [facility] Comment on above: Performed By: #### L 100.0100, L500.4050 ####[facility] [address] [place], [address] MCH (RBC) [Entitic mass] 32.0 pg Normal 27.0-32.0 [facility] Comment on above: Performed By: #### L 100.0100, L500.4050 ####[facility] [address] [place], [address] MCHC (RBC) [Mass/Vol] 32.8 g/dL Normal 32-36 [facility] Comment on above: Performed By: #### L 100.0100, L500.4050 ####[facility] [address] [place], [address] MCV (RBC) [Entitic vol] 97.4 fL Normal 81-99 [facility] Comment on above: Performed By: #### L 100.0100, L500.4050 ####[facility] [address] [place], [address] Monocytes/100 WBC (Bld) 6.5 % Normal 0-10 [facility] Comment on above: Performed By: #### L 100.0100, L500.4050 ####[facility] [address] [place], [address] Neutrophils/100 WBC (Bld) 75.3 % High 47-70 [facility] Comment on above: Performed By: #### L 100.0100, L500.4050 ####[facility] [address] [place], [address] Nucleated RBC (Bld) [#/Vol] 0 10*3/uL Normal 0-5 [facility] Comment on above: Performed By: #### L 100.0100, L500.4050 ####[facility] [address] [place], [address] Platelet mean volume (Bld) [Entitic vol] 9.5 fL Normal 6.2-12.0 [facility] Comment on above: Performed By: #### L 100.0100, L500.4050 ####[facility] [address] [place], [address] Platelets (Bld) [#/Vol] 378 10*3/uL Normal 150-450 [facility] Comment on above: Performed By: #### L 100.0100, L500.4050 ####[facility] [address] [place], [address] RBC (Bld) [#/Vol] 3.91 10*6/uL Low 4.2-5.4 [facility] Comment on above: Performed By: #### L 100.0100, L500.4050 ####[facility] [address] [place], [address] RDW SD 45.3 fl High 35.1-43.9 [facility] Comment on above: Performed By: #### L 100.0100, L500.4050 ####[facility] [address] [place], [address] WBC (Bld) [#/Vol] 10.5 10*3/uL Normal 4.4-11.0 [facility] Comment on above: Performed By: #### L 100.0100, L500.4050 ####[facility] [address] [place], [address] Comprehensive Metabolic Prof ilon 11-21-2023 Albumin [Mass/Vol] 3.5 g/dL Normal 3.2-5.0 [facility] Comment on above: Performed By: #### L 100.0100, L500.4050 ####[facility] [address] [place], [address] Albumin/Globulin [Mass ratio] 1.1 {ratio} Normal 0.9-2.4 [facility] Comment on above: Performed By: #### L 100.0100, L500.4050 ####[facility] [address] [place], [address] ALK P 55 U/L Normal 45-117 [facility] Comment on above: Performed By: #### L 100.0100, L500.4050 ####[facility] [address] [place], [address] ALT [Catalytic activity/Vol] 23 U/L Normal 13-56 [facility] Comment on above: Performed By: #### L 100.0100, L500.4050 ####[facility] [address] [place], [address] AST [Catalytic activity/Vol] 20 U/L Normal 15-37 [facility] Comment on above: Performed By: #### L 100.0100, L500.4050 ####[facility] [address] [place], [address] Bilirubin [Mass/Vol] 0.40 mg/dL Normal 0.20-1.00 [facility] Comment on above: Result Comment: For patients on eltrombopag therapy, use of Dimension [place] TBIL is not recommended. Performed By: #### L 100.0100, L500.4050 ####[facility] [address] [place], [address] BUN/CRE 17.0 RATIO Normal 10-20 [facility] Comment on above: Performed By: #### L 100.0100, L500.4050 ####[facility] [address] [place], [address] CA,Total 8.9 mg/dL Normal 8.5-10.1 [facility] Comment on above: Performed By: #### L 100.0100, L500.4050 ####[facility] [address] [place], [address] Chloride [Moles/Vol] 107 mmol/L Normal 98-107 [facility] Comment on above: Performed By: #### L 100.0100, L500.4050 ####[facility] [address] [place], [address] CO2 [Moles/Vol] 27.0 mmol/L Normal 21.0-32.0 [facility] Comment on above: Performed By: #### L 100.0100, L500.4050 ####[facility] [address] [place], [address] Creatinine [Mass/Vol] 1.06 mg/dL High 0.55-1.02 [facility] Comment on above: Result Comment: The validity of the calculated GFR GFRAA in patients over70 years has not been determined. Clinical correlation isessential. Performed By: #### L 100.0100, L500.4050 ####[facility] [address] [place], [address] EST GFR - AA 66 mL/min Normal >60 [facility] Comment on above: Result Comment: Afri can Lebanese GFR Calc Performed By: #### L 100.0100, L500.4050 ####[facility] [address] [place], [address] GAP 4 Low 5-15 [facility] Comment on above: Performed By: #### L 100.0100, L500.4050 ####[facility] [address] [place], [address] GFR/1.73 sq M.predicted among non-blacks MDRD (S/P/Bld) [Vol rate/Area] 55 mL/min/{1.73_m2} Low >60 [facility] Comment on above: Result Comment: Non- GFR Calc Performed By: #### L 100.0100, L500.4050 ####[facility] [address] [place], [address] Globulin (S) [Mass/Vol] 3.1 g/dL Normal 2.2-4.2 [facility] Comment on above: Performed By: #### L 100.0100, L500.4050 ####[facility] [address] [place], [address] Glucose [Mass/Vol] 88 mg/dL Normal 74-106 [facility] Comment on above: Performed By: #### L 100.0100, L500.4050 ####[facility] [address] [place], [address] Potassium [Moles/Vol] 4.0 mmol/L Normal 3.5-5.1 [facility] Comment on above: Performed By: #### L 100.0100, L500.4050 ####[facility] [address] [place], [address] Sodium [Moles/Vol] 138 mmol/L Normal 136-145 [facility] Comment on above: Performed By: #### L 100.0100, L500.4050 ####[facility] [address] [place], [address] T PROT 6.6 g/dL Normal 6.4-8.2 [facility] Comment on above: Performed By: #### L 100.0100, L500.4050 ####[facility] [address] [place], [address] Urea nitrogen [Mass/Vol] 18 mg/dL Normal 7-18 [facility] Comment on above: Performed By: #### L 100.0100, L500.4050 ####[facility] [address] [place], [address] CBC W/Diff, Automatedon 07-0 1-4 Absolute Lymph 1.75 X10 3/uL Normal 0.83-4.51 [facility] Comment on above: Performed By: #### L 500.4050, L100.0100 ####[facility] [address] [place], [address] Absolute Neut 7.6 X10 3/uL Normal 2.0-7.7 [facility] Comment on above: Performed By: #### L 500.4050, L100.0100 ####[facility] [address] [place], [address] Basophils/100 WBC (Bld) 0.6 % Normal 0-1 [facility] Comment on above: Performed By: #### L 500.4050, L100.0100 ####[facility] [address] [place], [address] Eosinophils/100 WBC (Bld) 2.1 % Normal 0-5 [facility] Comment on above: Performed By: #### L 500.4050, L100.0100 ####[facility] [address] [place], [address] Erythrocyte distribution width (RBC) [Ratio] 12.7 % Normal 11.6-14.6 [facility] Comment on above: Performed By: #### L 500.4050, L100.0100 ####[facility] [address] [place], [address] Hematocrit (Bld) [Volume fraction] 40.5 % Normal 37-47 [facility] Comment on above: Performed By: #### L 500.4050, L100.0100 ####[facility] [address] [place], [address] Hemoglobin (Bld) [Mass/Vol] 13.0 g/dL Normal 12.0-15.0 [facility] Comment on above: Performed By: #### L 500.4050, L100.0100 ####[facility] [address] [place], [address] IG% 1.800 High 0.0-0.9 [facility] Comment on above: Result Comment: IG% - Immature Granulocytes (promyelocytes, myelocytes andmetamyelocytes) > 1% indicates that a LEFT SHIFT is Present. Performed By: #### L 500.4050, L100.0100 ####[facility] [address] [place], [address] Lymphocytes/100 WBC (Bld) 16.7 % Low 19-41 [facility] Comment on above: Performed By: #### L 500.4050, L100.0100 ####[facility] [address] [place], [address] MCH (RBC) [Entitic mass] 31.5 pg Normal 27.0-32.0 [facility] Comment on above: Performed By: #### L 500.4050, L100.0100 ####[facility] [address] [place], [address] MCHC (RBC) [Mass/Vol] 32.1 g/dL Normal 32-36 [facility] Comment on above: Performed By: #### L 500.4050, L100.0100 ####[facility] [address] [place], [address] MCV (RBC) [Entitic vol] 98.1 fL Normal 81-99 [facility] Comment on above: Performed By: #### L 500.4050, L100.0100 ####[facility] [address] [place], [address] Monocytes/100 WBC (Bld) 6.2 % Normal 0-10 [facility] Comment on above: Performed By: #### L 500.4050, L100.0100 ####[facility] [address] [place], [address] Neutrophils/100 WBC (Bld) 72.6 % High 47-70 [facility] Comment on above: Performed By: #### L 500.4050, L100.0100 ####[facility] [address] [place], [address] Nucleated RBC (Bld) [#/Vol] 0 10*3/uL Normal 0-5 [facility] Comment on above: Performed By: #### L 500.4050, L100.0100 ####[facility] [address] [place], [address] Platelet mean volume (Bld) [Entitic vol] 9.5 fL Normal 6.2-12.0 [facility] Comment on above: Performed By: #### L 500.4050, L100.0100 ####[facility] [address] [place], [address] Platelets (Bld) [#/Vol] 370 10*3/uL Normal 150-450 [facility] Comment on above: Performed By: #### L 500.4050, L100.0100 ####[facility] [address] [place], [address] RBC (Bld) [#/Vol] 4.13 10*6/uL Low 4.2-5.4 [facility] Comment on above: Performed By: #### L 500.4050, L100.0100 ####[facility] [address] [place], [address] RDW SD 45.4 fl High 35.1-43.9 [facility] Comment on above: Performed By: #### L 500.4050, L100.0100 ####[facility] [address] [place], [address] WBC (Bld) [#/Vol] 10.5 10*3/uL Normal 4.4-11.0 [facility] Comment on above: Performed By: #### L 500.4050, L100.0100 ####[facility] [address] [place], [address] Comprehensive Metabolic Prof ilon 10-27-2023 Albumin [Mass/Vol] 3.5 g/dL Normal 3.2-5.0 [facility] Comment on above: Performed By: #### L 500.4050, L100.0100 ####[facility] [address] [place], [address] Albumin/Globulin [Mass ratio] 1.1 {ratio} Normal 0.9-2.4 [facility] Comment on above: Performed By: #### L 500.4050, L100.0100 ####[facility] [address] [place], [address] ALK P 61 U/L Normal 45-117 [facility] Comment on above: Performed By: #### L 500.4050, L100.0100 ####[facility] [address] [place], [address] ALT [Catalytic activity/Vol] 22 U/L Normal 13-56 [facility] Comment on above: Performed By: #### L 500.4050, L100.0100 ####[facility] [address] [place], [address] AST [Catalytic activity/Vol] 12 U/L Low 15-37 [facility] Comment on above: Performed By: #### L 500.4050, L100.0100 ####[facility] [address] [place], [address] Bilirubin [Mass/Vol] 0.40 mg/dL Normal 0.20-1.00 [facility] Comment on above: Result Comment: For patients on eltrombopag therapy, use of Dimension [place] TBIL is not recommended. Performed By: #### L 500.4050, L100.0100 ####[facility] [address] [place], [address] BUN/CRE 15.8 RATIO Normal 10-20 [facility] Comment on above: Performed By: #### L 500.4050, L100.0100 ####[facility] [address] [place], [address] CA,Total 9.1 mg/dL Normal 8.5-10.1 [facility] Comment on above: Performed By: #### L 500.4050, L100.0100 ####[facility] [address] [place], [address] Chloride [Moles/Vol] 104 mmol/L Normal 98-107 [facility] Comment on above: Performed By: #### L 500.4050, L100.0100 ####[facility] [address] [place], [address] CO2 [Moles/Vol] 30.0 mmol/L Normal 21.0-32.0 [facility] Comment on above: Performed By: #### L 500.4050, L100.0100 ####[facility] [address] [place], [address] Creatinine [Mass/Vol] 1.14 mg/dL High 0.55-1.02 [facility] Comment on above: Result Comment: The validity of the calculated GFR GFRAA in patients over70 years has not been determined. Clinical correlation isessential. Performed By: #### L 500.4050, L100.0100 ####[facility] [address] [place], [address] EST GFR - AA 61 mL/min Normal >60 [facility] Comment on above: Result Comment: Afri can Lebanese GFR Calc Performed By: #### L 500.4050, L100.0100 ####[facility] [address] [place], [address] GAP 5 Normal 5-15 [facility] Comment on above: Performed By: #### L 500.4050, L100.0100 ####[facility] [address] [place], [address] GFR/1.73 sq M.predicted among non-blacks MDRD (S/P/Bld) [Vol rate/Area] 50 mL/min/{1.73_m2} Low >60 [facility] Comment on above: Result Comment: Non- GFR Calc Performed By: #### L 500.4050, L100.0100 ####[facility] [address] [place], [address] Globulin (S) [Mass/Vol] 3.2 g/dL Normal 2.2-4.2 [facility] Comment on above: Performed By: #### L 500.4050, L100.0100 ####[facility] [address] [place], [address] Glucose [Mass/Vol] 88 mg/dL Normal 74-106 [facility] Comment on above: Performed By: #### L 500.4050, L100.0100 ####[facility] [address] [place], [address] Potassium [Moles/Vol] 3.6 mmol/L Normal 3.5-5.1 [facility] Comment on above: Performed By: #### L 500.4050, L100.0100 ####[facility] [address] [place], [address] Sodium [Moles/Vol] 139 mmol/L Normal 136-145 [facility] Comment on above: Performed By: #### L 500.4050, L100.0100 ####[facility] [address] [place], [place], [address] T PROT 6.7 g/dL Normal 6.4-8.2 [facility] Comment on above: Performed By: #### L 500.4050, L100.0100 ####[facility] [address] [place], [address] Urea nitrogen [Mass/Vol] 18 mg/dL Normal 7-18 [facility] Comment on above: Performed By: #### L 500.4050, L100.0100 ####[facility] [address] [place], [place], [address] CNPNon 09-12-2023 CNPN Telephone (JULISSAMN) KIEL ENGLISH ([id number]) 1955 F Date Time Provider Department 09/12/23 ROSIO LAGUNAS During your visit today, we recorded the following information about you: Jaclyn Pan 09/12/2023 12:37 PM Signed Pt calls into Dr. Lagunas's office -- No records/encounters associated to pt in chart -- Pt states the call was an accident and call ended --- Jaclyn Pan Sheeting Puller II Allergies As of Date: 09/12/2023 (Not on File) Date Reviewed: Never Reviewed Reason for Visit: error [307] Problem List As Of Date: 09/12/2023 (None) Encounter Status:Closed by JACLYN PAN on 09/12/[address] [facility] Absolute lymphocyte countOrd ered By: Octavia Hector on 07-29-2023 Lymphocytes Auto (Unsp spec) [#/Vol] 1.76 10*3/uL 0.83-4.51 [facility] Automated lymphocyte count a s percentage of total leukocytesOrdered By: Octavia Hector on 07-29-2023 Lymphocytes/100 WBC Auto (Unsp spec) 18.7 % 19-41 [facility] Basophil percentageOrdered B y: Octavia Hector on 07-29-2023 Basophils/100 WBC (Bld) 1.2 % 0-1 [facility] Bilirubin [Mass/Vol] 0.40 mg/dL 0.20-1.00 [facility] Comment on above: For patients on eltr ombopag therapy, use of Dimension [place] TBIL is not recommended. Chloride [Moles/Vol] 107 mmol/L 98-107 [facility] Eosinophils/100 WBC (Bld) 2.7 % 0-5 [facility] Glucose [Mass/Vol] 96 mg/dL 74-106 [facility] Hemoglobin (Bld) [Mass/Vol] 12.5 g/dL 12.0-15.0 [facility] Monocytes/100 WBC (Bld) 6.8 % 0-10 [facility] Neutrophils (Bld) [#/Vol] 6.5 10*3/uL 2.0-7.7 [facility] Neutrophils/100 WBC (Bld) 68.7 % 47-70 [facility] Potassium [Moles/Vol] 3.9 mmol/L 3.5-5.1 [facility] Protein [Mass/Vol] 6.4 g/dL 6.4-8.2 [facility] Sodium [Moles/Vol] 142 mmol/L 136-145 [facility] WBC (Bld) [#/Vol] 9.4 10*3/uL 4.4-11.0 [facility] Determination of erythrocyte mean corpuscular volume (MCV)Ordered By: Octavia Hector on 07-29-2023 MCV (RBC) [Entitic vol] 97.3 fL 81-99 [facility] Erythrocyte distribution wid th ratioOrdered By: Octavia Hector on 07-29-2023 Erythrocyte distribution width (RBC) [Ratio] 12.8 % 11.6-14.6 [facility] Erythrocyte distribution wid th standard deviationOrdered By: Octavia Hector on 07-29-2023 Erythrocyte distribution width (RBC) [Entitic vol] 45.3 fL 35.1-43.9 [facility] Hematocrit Auto (Bld) [Volum e fraction]Ordered By: Octavia Hector on 07-29-2023 Hematocrit (Bld) [Volume fraction] 38.9 % 37-47 [facility] Immature granulocytes/100 WB C Auto (Bld)Ordered By: Octavia Hector on 07-29-2023 Immature granulocytes/100 WBC (Bld) 1.900 % 0.0-0.9 [facility] Comment on above: IG% - Immature Granu locytes (promyelocytes, myelocytes and metamyelocytes) > 1% indicates that a LEFT SHIFT is Present. Laboratory - Chemistry and C hemistry - challengeOrdered By: Octavia Hector on 07-29-2023 Albumin/Globulin [Mass ratio] 1.1 {ratio} 0.9-2.4 [facility] ALP [Catalytic activity/Vol] 52 U/L 45-117 [facility] ALT [Catalytic activity/Vol] 16 U/L 13-56 [facility] CO2 [Moles/Vol] 30.0 mmol/L 21.0-32.0 [facility] Globulin (S) [Mass/Vol] 3.1 g/dL 2.2-4.2 [facility] Urea nitrogen/Creatinine [Mass ratio] 16.5 mg/mg 10-20 [facility] Laboratory - Hematology and Cell countsOrdered By: Octavia Hector on 07-29-2023 MCH (RBC) [Entitic mass] 31.3 pg 27.0-32.0 [facility] MCHC (RBC) [Mass/Vol] 32.1 g/dL 32-36 [facility] Nucleated RBC/100 WBC (Bld) [Ratio] 0 % 0-5 [facility] Platelet mean volume (Bld) [Entitic vol] 9.8 fL 6.2-12.0 [facility] Platelets (Bld) [#/Vol] 417 10*3/uL 150-450 [facility] No Panel InformationOrdered By: Octavia Hector on 07-29-2023 Estimated GFR (MDRD) Amer 54 mL/min >60 [facility] Comment on above: GFR Calc Estimated GFR (MDRD) Non-Af Amer 44 mL/min >60 [facility] Comment on above: Non- GFR Calc RBC Auto (Bld) [#/Vol]Ordere d By: Octavia Hector on 07-29-2023 RBC (Bld) [#/Vol] 4.00 10*6/uL 4.2-5.4 [facility] Serum or plasma calcium breana urement (mass/volume)Ordered By: Octavia Hector on 07-29-2023 Calcium [Mass/Vol] 9.1 mg/dL 8.5-10.1 [facility] Serum or plasma creatinine m easurement (mass/volume)Ordered By: Octavia Hector on 07-29-2023 Creatinine [Mass/Vol] 1.27 mg/dL 0.55-1.02 [facility] Comment on above: The validity of the calculated GFR & GFRAA in patients over 70 years has not been determined. Clinical correlation is essential. Serum or plasma urea nitroge n measurement (mass/volume)Ordered By: Octavia Hector on 07-29-2023 Urea nitrogen [Mass/Vol] 21 mg/dL 7-18 [facility] Thin prep Papanicolaou smear with manual screeningOrdered By: Octavia Hector on 07-29-2023 Thin prep Papanicolaou smear with manual screening 3.3 g/dL 3.2-5.0 [facility] Thin prep Papanicolaou smear with manual screening 11 U/L 15-37 [facility] Thin prep Papanicolaou smear with manual screening 5 5-15 [facility] Absolute lymphocyte countOrd ered By: Felicia Marrufo on 07-10-2023 Lymphocytes Auto (Unsp spec) [#/Vol] 1.12 10*3/uL 0.83-4.51 [facility] Automated lymphocyte count a s percentage of total leukocytesOrdered By: Felicia Marrufo on 07-10-2023 Lymphocytes/100 WBC Auto (Unsp spec) 13.3 % 19-41 [facility] Basophil percentageOrdered B y: Felicia Marrufo on 07-10-2023 Basophils/100 WBC (Bld) 0.4 % 0-1 [facility] Bilirubin [Mass/Vol] 0.60 mg/dL 0.20-1.00 [facility] Comment on above: For patients on eltr ombopag therapy, use of Dimension [place] TBIL is not recommended. Chloride [Moles/Vol] 107 mmol/L 98-107 [facility] Eosinophils/100 WBC (Bld) 5.8 % 0-5 [facility] Glucose [Mass/Vol] 100 mg/dL 74-106 [facility] Comment on above: Fasting Glucose resu lt from 100 to 125 mg/dL suggests IMPAIRED HOMEOSTASIS per A.D.A. criteria. Hemoglobin (Bld) [Mass/Vol] 12.3 g/dL 12.0-15.0 [facility] Monocytes/100 WBC (Bld) 6.9 % 0-10 [facility] Neutrophils (Bld) [#/Vol] 6.1 10*3/uL 2.0-7.7 [facility] Neutrophils/100 WBC (Bld) 72.2 % 47-70 [facility] Potassium [Moles/Vol] 3.8 mmol/L 3.5-5.1 [facility] Protein [Mass/Vol] 6.6 g/dL 6.4-8.2 [facility] Sodium [Moles/Vol] 141 mmol/L 136-145 [facility] WBC (Bld) [#/Vol] 8.4 10*3/uL 4.4-11.0 [facility] Determination of erythrocyte mean corpuscular volume (MCV)Ordered By: Felicia Marrufo on 07-10-2023 MCV (RBC) [Entitic vol] 97.9 fL 81-99 [facility] Erythrocyte distribution wid th ratioOrdered By: Felicia Marrufo on 07-10-2023 Erythrocyte distribution width (RBC) [Ratio] 13.1 % 11.6-14.6 [facility] Erythrocyte distribution wid th standard deviationOrdered By: Felicia Marrufo on 07-10-2023 Erythrocyte distribution width (RBC) [Entitic vol] 46.8 fL 35.1-43.9 [facility] Hematocrit Auto (Bld) [Volum e fraction]Ordered By: Felicia Marrufo on 07-10-2023 Hematocrit (Bld) [Volume fraction] 37.8 % 37-47 [facility] Immature granulocytes/100 WB C Auto (Bld)Ordered By: Felicia Marrufo on 07-10-2023 Immature granulocytes/100 WBC (Bld) 1.400 % 0.0-0.9 [facility] Comment on above: IG% - Immature Granu locytes (promyelocytes, myelocytes and metamyelocytes) > 1% indicates that a LEFT SHIFT is Present. Laboratory - Chemistry and C hemistry - challengeOrdered By: Felicia Marrufo on 07-10-2023 Albumin/Globulin [Mass ratio] 1.0 {ratio} 0.9-2.4 [facility] ALP [Catalytic activity/Vol] 56 U/L 45-117 [facility] ALT [Catalytic activity/Vol] 17 U/L 13-56 [facility] CO2 [Moles/Vol] 28.0 mmol/L 21.0-32.0 [facility] Globulin (S) [Mass/Vol] 3.3 g/dL 2.2-4.2 [facility] Urea nitrogen/Creatinine [Mass ratio] 16.3 mg/mg 10-20 [facility] Laboratory - Hematology and Cell countsOrdered By: Felicia Marrufo on 07-10-2023 MCH (RBC) [Entitic mass] 31.9 pg 27.0-32.0 [facility] MCHC (RBC) [Mass/Vol] 32.5 g/dL 32-36 [facility] Nucleated RBC/100 WBC (Bld) [Ratio] 0 % 0-5 [facility] Platelet mean volume (Bld) [Entitic vol] 9.8 fL 6.2-12.0 [facility] Platelets (Bld) [#/Vol] 318 10*3/uL 150-450 [facility] No Panel InformationOrdered By: Felicia Marrufo on 07-10-2023 Estimated Creatinine Clearance Calc 56.29 ml/min [facility] Estimated GFR (MDRD) Amer 68 mL/min >60 [facility] Comment on above: GFR Calc Estimated GFR (MDRD) Non-Af Amer 56 mL/min >60 [facility] Comment on above: Non- GFR Calc RBC Auto (Bld) [#/Vol]Ordere d By: Felicia Marrufo on 07-10-2023 RBC (Bld) [#/Vol] 3.86 10*6/uL 4.2-5.4 [facility] Serum or plasma calcium breana urement (mass/volume)Ordered By: Felicia Marrufo on 07-10-2023 Calcium [Mass/Vol] 8.9 mg/dL 8.5-10.1 [facility] Serum or plasma creatinine m easurement (mass/volume)Ordered By: Felicia Marrufo on 07-10-2023 Creatinine [Mass/Vol] 1.04 mg/dL 0.55-1.02 [facility] Comment on above: The validity of the calculated GFR & GFRAA in patients over 70 years has not been determined. Clinical correlation is essential. Serum or plasma urea nitroge n measurement (mass/volume)Ordered By: Felicia Marrufo on 07-10-2023 Urea nitrogen [Mass/Vol] 17 mg/dL 7-18 [facility] Thin prep Papanicolaou smear with manual screeningOrdered By: Felicia Niru on 07-10-2023 Thin prep Papanicolaou smear with manual screening 3.3 g/dL 3.2-5.0 [facility] Thin prep Papanicolaou smear with manual screening 11 U/L 15-37 [facility] Thin prep Papanicolaou smear with manual screening 6 5-15 [facility] Basophil percentageOrdered B y: Chris Montelongo on 07-02-2023 Bilirubin [Mass/Vol] 0.30 mg/dL 0.20-1.00 [facility] Comment on above: For patients on eltr ombopag therapy, use of Dimension [place] TBIL is not recommended. Chloride [Moles/Vol] 108 mmol/L 98-107 [facility] Cholesterol [Mass/Vol] 188 mg/dL <200 [facility] Comment on above: <200 mg/dL Desirable 200-240 mg/dL Borderline >240 mg/dL High Risk Glucose [Mass/Vol] 93 mg/dL 74-106 [facility] Potassium [Moles/Vol] 4.7 mmol/L 3.5-5.1 [facility] Protein [Mass/Vol] 6.1 g/dL 6.4-8.2 [facility] Sodium [Moles/Vol] 143 mmol/L 136-145 [facility] Triglyceride [Mass/Vol] 68 mg/dL <199 [facility] Comment on above: The drugs N-Acetylcy steine and Metamizole may falsely depress this assay.Serum Triglycerides Reference Interval Normal <150 mg/dL Borderline high 150 - 199 mg/dL High 200 - 499 mg/dL Very High > or = 500 mg/dL Laboratory - Chemistry and C hemistry - challengeOrdered By: Chris Montelongo on 07-02-2023 Albumin/Globulin [Mass ratio] 1.1 {ratio} 0.9-2.4 [facility] ALP [Catalytic activity/Vol] 54 U/L 45-117 [facility] ALT [Catalytic activity/Vol] 19 U/L 13-56 [facility] Cholesterol in HDL [Mass/Vol] 77 mg/dL >40 [facility] Comment on above: The drugs N-Acetylcy steine and Metamizole may falsely depress this assay. Reference Range HDL <40 mg/dL Low HDL Cholesterol HDL >or= 60 mg/dL High HDL Cholesterol Cholesterol in LDL [Mass/Vol] 97 mg/dL 0-130 [facility] CO2 [Moles/Vol] 31.0 mmol/L 21.0-32.0 [facility] Globulin (S) [Mass/Vol] 2.9 g/dL 2.2-4.2 [facility] Urea nitrogen/Creatinine [Mass ratio] 15.4 mg/mg 10-20 [facility] No Panel InformationOrdered By: Chris Montelongo on 07-02-2023 Estimated GFR (MDRD) Amer 56 mL/min >60 [facility] Comment on above: GFR Calc Estimated GFR (MDRD) Non-Af Amer 46 mL/min >60 [facility] Comment on above: Non- GFR Calc VLDL Cholesterol 14 mg/dL 5-40 [facility] Serum or plasma calcium breana urement (mass/volume)Ordered By: Chris Montelongo on 07-02-2023 Calcium [Mass/Vol] 9.0 mg/dL 8.5-10.1 [facility] Serum or plasma creatinine m easurement (mass/volume)Ordered By: Chris Montelongo on 07-02-2023 Creatinine [Mass/Vol] 1.23 mg/dL 0.55-1.02 [facility] Comment on above: The validity of the calculated GFR & GFRAA in patients over 70 years has not been determined. Clinical correlation is essential. Serum or plasma urea nitroge n measurement (mass/volume)Ordered By: Chris Montelongo on 07-02-2023 Urea nitrogen [Mass/Vol] 19 mg/dL 7-18 [facility] Thin prep Papanicolaou smear with manual screeningOrdered By: Chris Montelongo on 07-02-2023 Thin prep Papanicolaou smear with manual screening 3.2 g/dL 3.2-5.0 [facility] Thin prep Papanicolaou smear with manual screening 16 U/L 15-37 [facility] Thin prep Papanicolaou smear with manual screening 4 5-15 [facility] Absolute lymphocyte countOrd ered By: Octavia Hector on 04-14-2023 Lymphocytes Auto (Unsp spec) [#/Vol] 2.01 10*3/uL 0.83-4.51 [facility] Basophil percentageOrdered B y: Octavia Hector on 04-14-2023 Basophils/100 WBC (Bld) 0.6 % 0-1 [facility] Bilirubin [Mass/Vol] 0.70 mg/dL 0.20-1.00 [facility] Comment on above: For patients on eltr ombopag therapy, use of [place]ension [place] TBIL is not recommended. Chloride [Moles/Vol] 108 mmol/L 98-107 [facility] Eosinophils/100 WBC (Bld) 1.2 % 0-5 [facility] Glucose [Mass/Vol] 98 mg/dL 74-106 [facility] Neutrophils (Bld) [#/Vol] 8.2 10*3/uL 2.0-7.7 [facility] Neutrophils/100 WBC (Bld) 73.5 % 47-70 [facility] Potassium [Moles/Vol] 3.6 mmol/L 3.5-5.1 [facility] Protein [Mass/Vol] 7.2 g/dL 6.4-8.2 [facility] Sodium [Moles/Vol] 141 mmol/L 136-145 [facility] WBC (Bld) [#/Vol] 11.2 10*3/uL 4.4-11.0 [facility] Blood erythrocytes count (nu mber/volume)Ordered By: Octavia Hector on 04-14-2023 RBC (Bld) [#/Vol] 4.25 10*6/uL 4.2-5.4 [facility] Blood hemoglobin measurement (mass/volume)Ordered By: Octavia Hector on 04-14-2023 Hemoglobin (Bld) [Mass/Vol] 13.3 g/dL 12.0-15.0 [facility] Blood lymphocytes/100 leukoc ytesOrdered By: Octavia Hector on 04-14-2023 Lymphocytes/100 WBC (Bld) 18.0 % 19-41 [facility] Blood monocytes/100 leukocyt esOrdered By: Octavia Hector on 04-14-2023 Monocytes/100 WBC (Bld) 5.7 % 0-10 [facility] Blood platelet mean volumeOr dered By: Octavia Hector on 04-14-2023 Platelet mean volume (Bld) [Entitic vol] 10.0 fL 6.2-12.0 [facility] Determination of erythrocyte mean corpuscular volume (MCV)Ordered By: Octavia Hector on 04-14-2023 MCV (RBC) [Entitic vol] 97.9 fL 81-99 [facility] Erythrocyte sedimentation ra teOrdered By: Octavia Hector on 04-14-2023 ESR (Bld) [Velocity] 3 mm/h 0-30 [facility] Hematocrit Auto (Bld) [Volum e fraction]Ordered By: Octavia Hector on 04-14-2023 Hematocrit (Bld) [Volume fraction] 41.6 % 37-47 [facility] Laboratory - Chemistry and C hemistry - challengeOrdered By: Octavia Hector on 04-14-2023 ALP [Catalytic activity/Vol] 61 U/L 45-117 [facility] ALT [Catalytic activity/Vol] 15 U/L 13-56 [facility] CO2 [Moles/Vol] 27.0 mmol/L 21.0-32.0 [facility] Globulin (S) [Mass/Vol] 3.5 g/dL 2.2-4.2 [facility] Urea nitrogen/Creatinine [Mass ratio] 16.8 mg/mg 10-20 [facility] Laboratory - Hematology and Cell countsOrdered By: Octavia Hector on 04-14-2023 Erythrocyte distribution width (RBC) [Entitic vol] 45.0 fL 35.1-43.9 [facility] Erythrocyte distribution width (RBC) [Ratio] 12.6 % 11.6-14.6 [facility] Immature granulocytes/100 WBC (Bld) 1.000 % 0.0-0.9 [facility] Comment on above: IG% - Immature Granu locytes (promyelocytes, myelocytes and metamyelocytes) > 1% indicates that a LEFT SHIFT is Present. MCH (RBC) [Entitic mass] 31.3 pg 27.0-32.0 [facility] Nucleated RBC/100 WBC (Bld) [Ratio] 0 % 0-5 [facility] MCHC Auto (RBC) [Mass/Vol]Or dered By: Octavia Hector on 04-14-2023 MCHC (RBC) [Mass/Vol] 32.0 g/dL 32-36 [facility] No Panel InformationOrdered By: Octavia Hector on 04-14-2023 Anti-Nuclear Antibody Screen Negative Negative [facility] Comment on above: Performed at: [address] [id number] Director: Yoel Goodman PhD, Phone: [phone] Estimated GFR (MDRD) Amer 66 mL/min >60 [facility] Comment on above: GFR Calc Estimated GFR (MDRD) Non-Af Amer 54 mL/min >60 [facility] Comment on above: Non- GFR Calc Hepatitis B Surface Antigen Non-Reactive Nonreactive [facility] Hepatitis C Antibody Non-Reactive Nonreactive [facility] Comment on above: Non Reactive: < 0.8 Equivocal: >/= 0.8 to < 1.0 Reactive: >/= 1.0The CDC recommends that a reactive/equivocal HCV antibody result be followed up by the HCV Nucleic Acid Amplificationtest (558932) Platelets bldOrdered By: Jodi Hector on 04-14-2023 Platelets (Bld) [#/Vol] 339 10*3/uL 150-450 [facility] Serum cyclic citrullinated p eptide IgG antibody assay (units/volume)Ordered By: Octavia Hector on 04-14-2023 Cyclic citrullinated peptide IgG Qn 5 units 0-19 [facility] Comment on above: Negative <20 Weak po sitive 20 - 39 Moderate positive 40 - 59 Strong positive >59Performed at: [facility] [address] [id number] Director: Yoel Goodman PhD, Phone: [phone] Serum hepatitis B virus surf irene antibody IgG detectionOrdered By: Octavia Hector on 04-14-2023 HBV surface IgG Ql (S) Non-Reactive [facility] Comment on above: Non Reactive: Incons istent with immunity less than <10 mIU/mL Reactive: Consistent with immunity greater than or equal to 10 mIU/mL Serum or plasma C reactive p rotein measurement (mass/volume)Ordered By: Octavia Hector on 04-14-2023 CRP [Mass/Vol] 4.41 mg/L 0.0-3.0 [facility] Comment on above: C-Reactive Protein ( CRP) provides useful information for thediagnosis, therapy and monitoring of inflammatory processesand associated diseases. For the evaluation of Relative Riskfor Cardiovascular Disease, a High Sensitivity CRP (HSCRP)should be ordered. Serum or plasma albumin breana urement (mass/volume)Ordered By: Octavia Hector on 04-14-2023 Albumin [Mass/Vol] 3.7 g/dL 3.2-5.0 [facility] Serum or plasma albumin/glob ulin mass ratioOrdered By: Octavia Hector on 04-14-2023 Albumin/Globulin [Mass ratio] 1.1 {ratio} 0.9-2.4 [facility] Serum or plasma calcium breana urement (mass/volume)Ordered By: Octavia Hector on 04-14-2023 Calcium [Mass/Vol] 9.0 mg/dL 8.5-10.1 [facility] Serum or plasma creatinine m easurement (mass/volume)Ordered By: Octavia Hector on 12-18-2023 Creatinine [Mass/Vol] 1.07 mg/dL 0.55-1.02 [facility] Comment on above: The validity of the calculated GFR & GFRAA in patients over 70 years has not been determined. Clinical correlation is essential. Serum or plasma urea nitroge n measurement (mass/volume)Ordered By: Octavia Hector on 04-14-2023 Urea nitrogen [Mass/Vol] 18 mg/dL 7-18 [facility] Serum rheumatoid factor dete ctionOrdered By: Octavia Hector on 04-14-2023 Rheumatoid factor Ql (S) < 10.0 IU/mL <15 [facility] Thin prep Papanicolaou smear with manual screeningOrdered By: Octavia Hector on 04-14-2023 Thin prep Papanicolaou smear with manual screening 12 U/L 15-37 [facility] Thin prep Papanicolaou smear with manual screening 6 5-15 [facility] Absolute lymphocyte countOrd ered By: Jennifer Simental on 01-02-2023 Lymphocytes Auto (Unsp spec) [#/Vol] 1.86 10*3/uL 0.83-4.51 [facility] Basophil percentageOrdered B y: Jennifer Simental on 01-02-2023 Basophils/100 WBC (Bld) 0.5 % 0-1 [facility] Bilirubin [Mass/Vol] 0.50 mg/dL 0.20-1.00 [facility] Comment on above: For patients on eltr ombopag therapy, use of [place] TBIL is not recommended. Chloride [Moles/Vol] 106 mmol/L 98-107 [facility] Eosinophils/100 WBC (Bld) 1.1 % 0-5 [facility] Glucose [Mass/Vol] 94 mg/dL 74-106 [facility] Neutrophils (Bld) [#/Vol] 8.2 10*3/uL 2.0-7.7 [facility] Neutrophils/100 WBC (Bld) 75.1 % 47-70 [facility] Potassium [Moles/Vol] 3.8 mmol/L 3.5-5.1 [facility] Protein [Mass/Vol] 6.8 g/dL 6.4-8.2 [facility] Sodium [Moles/Vol] 139 mmol/L 136-145 [facility] WBC (Bld) [#/Vol] 10.9 10*3/uL 4.4-11.0 [facility] Blood erythrocytes count (nu mber/volume)Ordered By: Jennifer Simental on 01-02-2023 RBC (Bld) [#/Vol] 4.11 10*6/uL 4.2-5.4 [facility] Blood hemoglobin measurement (mass/volume)Ordered By: Jennifer Simental on 01-02-2023 Hemoglobin (Bld) [Mass/Vol] 13.0 g/dL 12.0-15.0 [facility] Blood lymphocytes/100 leukoc ytesOrdered By: Jennifer Simental on 01-02-2023 Lymphocytes/100 WBC (Bld) 17.1 % 19-41 [facility] Blood monocytes/100 leukocyt esOrdered By: Jennifer Simental on 01-02-2023 Monocytes/100 WBC (Bld) 5.5 % 0-10 [facility] Blood platelet mean volumeOr dered By: Jennifer Simental on 01-02-2023 Platelet mean volume (Bld) [Entitic vol] 9.4 fL 6.2-12.0 [facility] Determination of erythrocyte mean corpuscular volume (MCV)Ordered By: Jennifer Simental on 01-02-2023 MCV (RBC) [Entitic vol] 98.1 fL 81-99 [facility] Erythrocyte sedimentation ra teOrdered By: Jennifer Simental on 01-02-2023 ESR (Bld) [Velocity] 8 mm/h 0-30 [facility] Hematocrit Auto (Bld) [Volum e fraction]Ordered By: Jennifer Simental on 01-02-2023 Hematocrit (Bld) [Volume fraction] 40.3 % 37-47 [facility] Laboratory - Chemistry and C hemistry - challengeOrdered By: Jennifer Simental on 01-02-2023 ALP [Catalytic activity/Vol] 65 U/L 45-117 [facility] ALT [Catalytic activity/Vol] 19 U/L 13-56 [facility] CO2 [Moles/Vol] 27.0 mmol/L 21.0-32.0 [facility] Globulin (S) [Mass/Vol] 3.3 g/dL 2.2-4.2 [facility] Urea nitrogen/Creatinine [Mass ratio] 21.4 mg/mg 10-20 [facility] Laboratory - Hematology and Cell countsOrdered By: Jennifer Simental on 01-02-2023 Erythrocyte distribution width (RBC) [Entitic vol] 45.8 fL 35.1-43.9 [facility] Erythrocyte distribution width (RBC) [Ratio] 12.9 % 11.6-14.6 [facility] Immature granulocytes/100 WBC (Bld) 0.700 % 0.0-0.9 [facility] Comment on above: IG% - Immature Granu locytes (promyelocytes, myelocytes and metamyelocytes) > 1% indicates that a LEFT SHIFT is Present. MCH (RBC) [Entitic mass] 31.6 pg 27.0-32.0 [facility] Nucleated RBC/100 WBC (Bld) [Ratio] 0 % 0-5 [facility] MCHC Auto (RBC) [Mass/Vol]Or dered By: Jennifer Simental on 01-02-2023 MCHC (RBC) [Mass/Vol] 32.3 g/dL 32-36 [facility] No Panel InformationOrdered By: Jennifer Simental on 01-02-2023 Estimated Creatinine Clearance Calc 43.26 ml/min [facility] Estimated GFR (MDRD) Amer 62 mL/min >60 [facility] Comment on above: GFR Calc Estimated GFR (MDRD) Non-Af Amer 51 mL/min >60 [facility] Comment on above: Non- GFR Calc Platelets bldOrdered By: Orlando Simental on 01-02-2023 Platelets (Bld) [#/Vol] 367 10*3/uL 150-450 [facility] Serum or plasma albumin breana urement (mass/volume)Ordered By: Jennifer Simental on 01-02-2023 Albumin [Mass/Vol] 3.5 g/dL 3.2-5.0 [facility] Serum or plasma albumin/glob ulin mass ratioOrdered By: Jennifer Simental on 01-02-2023 Albumin/Globulin [Mass ratio] 1.1 {ratio} 0.9-2.4 [facility] Serum or plasma calcium breana urement (mass/volume)Ordered By: Jennifer Simental on 01-02-2023 Calcium [Mass/Vol] 9.1 mg/dL 8.5-10.1 [facility] Serum or plasma creatinine m easurement (mass/volume)Ordered By: Jennifer Simental on 01-02-2023 Creatinine [Mass/Vol] 1.12 mg/dL 0.55-1.02 [facility] Comment on above: The validity of the calculated GFR & GFRAA in patients over 70 years has not been determined. Clinical correlation is essential. Serum or plasma urea nitroge n measurement (mass/volume)Ordered By: Jennifer Simental on 01-02-2023 Urea nitrogen [Mass/Vol] 24 mg/dL 7-18 [facility] Thin prep Papanicolaou smear with manual screeningOrdered By: [facility] S[facility] on 01-02-2023 Thin prep Papanicolaou smear with manual screening 15 U/L 15-37 [facility] Thin prep Papanicolaou smear with manual screening 6 5-15 [facility] Basophil percentageOrdered B y: Jennifer Simental on 11-11-2022 Creatinine [Mass/Vol] 1.2 mg/dL 0.55-1.02 [facility] Laboratory - Chemistry and C hemistry - challengeOrdered By: Jennifer Simental on 11-11-2022 GFR/1.73 sq M.predicted among non-blacks MDRD (S/P/Bld) [Vol rate/Area] 49.0000 mL/min/{1.73_m2} >60 [facility] Clostridium difficile detect ion by polymerase chain reactionOrdered By: Dr. Montelongo on 07-02-2022 C. difficile DNA [place]+probe Ql (Unsp spec) [facility] Absolute lymphocyte countOrd ered By: Dr. Montelongo on 07-01-2022 Lymphocytes Auto (Unsp spec) [#/Vol] 1.66 10*3/uL 0.83-4.51 [facility] Basophil percentageOrdered B y: Dr. Montelongo on 07-01-2022 Basophils/100 WBC (Bld) 0.3 % 0-1 [facility] Bilirubin [Mass/Vol] 0.30 mg/dL 0.20-1.00 [facility] Comment on above: For patients on eltr ombopag therapy, use of Dimension [place] TBIL is not recommended. Chloride [Moles/Vol] 107 mmol/L 98-107 [facility] Eosinophils/100 WBC (Bld) 2.4 % 0-5 [facility] Glucose [Mass/Vol] 96 mg/dL 74-106 [facility] Neutrophils (Bld) [#/Vol] 6.9 10*3/uL 2.0-7.7 [facility] Neutrophils/100 WBC (Bld) 72.9 % 47-70 [facility] Potassium [Moles/Vol] 3.8 mmol/L 3.5-5.1 [facility] Protein [Mass/Vol] 6.5 g/dL 6.4-8.2 [facility] Sodium [Moles/Vol] 139 mmol/L 136-145 [facility] WBC (Bld) [#/Vol] 9.5 10*3/uL 4.4-11.0 [facility] Blood erythrocytes count (nu mber/volume)Ordered By: Dr. Montelongo on 07-01-2022 RBC (Bld) [#/Vol] 4.05 10*6/uL 4.2-5.4 [facility] Blood hemoglobin measurement (mass/volume)Ordered By: Dr. Montelongo on 07-01-2022 Hemoglobin (Bld) [Mass/Vol] 12.6 g/dL 12.0-15.0 [facility] Blood lymphocytes/100 leukoc ytesOrdered By: Dr. Montelongo on 07-01-2022 Lymphocytes/100 WBC (Bld) 17.4 % 19-41 [facility] Blood monocytes/100 leukocyt esOrdered By: Dr. Montelongo on 07-01-2022 Monocytes/100 WBC (Bld) 6.2 % 0-10 [facility] Blood platelet mean volumeOr dered By: Dr. Montelongo on 07-01-2022 Platelet mean volume (Bld) [Entitic vol] 10.0 fL 6.2-12.0 [facility] Determination of erythrocyte mean corpuscular volume (MCV)Ordered By: Dr. Montelongo on 07-01-2022 MCV (RBC) [Entitic vol] 98.3 fL 81-99 [facility] Hematocrit Auto (Bld) [Volum e fraction]Ordered By: Dr. Montelongo on 07-01-2022 Hematocrit (Bld) [Volume fraction] 39.8 % 37-47 [facility] Laboratory - Chemistry and C hemistry - challengeOrdered By: Dr. Montelongo on 07-01-2022 ALP [Catalytic activity/Vol] 65 U/L 45-117 [facility] ALT [Catalytic activity/Vol] 20 U/L 13-56 [facility] CO2 [Moles/Vol] 27.0 mmol/L 21.0-32.0 [facility] Globulin (S) [Mass/Vol] 3.2 g/dL 2.2-4.2 [facility] Urea nitrogen/Creatinine [Mass ratio] 15.7 mg/mg 10-20 [facility] Laboratory - Hematology and Cell countsOrdered By: Dr. Montelongo on 07-01-2022 Erythrocyte distribution width (RBC) [Entitic vol] 45.2 fL 35.1-43.9 [facility] Erythrocyte distribution width (RBC) [Ratio] 12.5 % 11.6-14.6 [facility] Immature granulocytes/100 WBC (Bld) 0.800 % 0.0-0.9 [facility] Comment on above: IG% - Immature Granu locytes (promyelocytes, myelocytes and metamyelocytes) > 1% indicates that a LEFT SHIFT is Present. MCH (RBC) [Entitic mass] 31.1 pg 27.0-32.0 [facility] Nucleated RBC/100 WBC (Bld) [Ratio] 0 % 0-5 [facility] MCHC Auto (RBC) [Mass/Vol]Or dered By: Dr. Montelongo on 07-01-2022 MCHC (RBC) [Mass/Vol] 31.7 g/dL 32-36 [facility] No Panel InformationOrdered By: Dr. Montelongo on 07-01-2022 Estimated GFR (MDRD) Amer 65 mL/min >60 [facility] Comment on above: GFR Calc Estimated GFR (MDRD) Non-Af Amer 54 mL/min >60 [facility] Comment on above: Non- GFR Calc Platelets bldOrdered By: Dr. Montelongo on 07-01-2022 Platelets (Bld) [#/Vol] 386 10*3/uL 150-450 [facility] Serum or plasma albumin breana urement (mass/volume)Ordered By: Dr. Montelongo on 07-01-2022 Albumin [Mass/Vol] 3.3 g/dL 3.2-5.0 [facility] Serum or plasma albumin/glob ulin mass ratioOrdered By: Dr. Montelongo on 07-01-2022 Albumin/Globulin [Mass ratio] 1.0 {ratio} 0.9-2.4 [facility] Serum or plasma calcium breana urement (mass/volume)Ordered By: Dr. Montelongo on 07-01-2022 Calcium [Mass/Vol] 8.8 mg/dL 8.5-10.1 [facility] Serum or plasma creatinine m easurement (mass/volume)Ordered By: Dr. Montelongo on 07-01-2022 Creatinine [Mass/Vol] 1.08 mg/dL 0.55-1.02 [facility] Comment on above: The validity of the calculated GFR & GFRAA in patients over 70 years has not been determined. Clinical correlation is essential. Serum or plasma urea nitroge n measurement (mass/volume)Ordered By: Dr. Montelongo on 07-01-2022 Urea nitrogen [Mass/Vol] 17 mg/dL 7-18 [facility] Thin prep Papanicolaou smear with manual screeningOrdered By: Dr. Montelongo on 07-01-2022 Thin prep Papanicolaou smear with manual screening 14 U/L 15-37 [facility] Thin prep Papanicolaou smear with manual screening 5 5-15 [facility] Absolute lymphocyte countOrd ered By: Dr. Montelongo on 03-29-2022 Lymphocytes Auto (Unsp spec) [#/Vol] 1.71 10*3/uL 0.83-4.51 [facility] Basophil percentageOrdered B y: Dr. Montelongo on 03-29-2022 Basophils/100 WBC (Bld) 0.6 % 0-1 [facility] Bilirubin [Mass/Vol] 0.40 mg/dL 0.20-1.00 [facility] Comment on above: For patients on eltr ombopag therapy, use of [place]ension [place] TBIL is not recommended. Chloride [Moles/Vol] 106 mmol/L 98-107 [facility] Eosinophils/100 WBC (Bld) 1.5 % 0-5 [facility] Glucose [Mass/Vol] 94 mg/dL 74-106 [facility] Neutrophils (Bld) [#/Vol] 7.7 10*3/uL 2.0-7.7 [facility] Neutrophils/100 WBC (Bld) 74.4 % 47-70 [facility] Potassium [Moles/Vol] 4.5 mmol/L 3.5-5.1 [facility] Protein [Mass/Vol] 6.4 g/dL 6.4-8.2 [facility] Sodium [Moles/Vol] 139 mmol/L 136-145 [facility] WBC (Bld) [#/Vol] 10.3 10*3/uL 4.4-11.0 [facility] Blood erythrocytes count (nu mber/volume)Ordered By: Dr. Montelongo on 03-29-2022 RBC (Bld) [#/Vol] 4.23 10*6/uL 4.2-5.4 [facility] Blood hemoglobin measurement (mass/volume)Ordered By: Dr. Montelongo on 03-29-2022 Hemoglobin (Bld) [Mass/Vol] 13.2 g/dL 12.0-15.0 [facility] Blood lymphocytes/100 leukoc ytesOrdered By: Dr. Montelongo on 03-29-2022 Lymphocytes/100 WBC (Bld) 16.5 % 19-41 [facility] Blood monocytes/100 leukocyt esOrdered By: Dr. Montelongo on 03-29-2022 Monocytes/100 WBC (Bld) 5.6 % 0-10 [facility] Blood platelet mean volumeOr dered By: Dr. Montelongo on 03-29-2022 Platelet mean volume (Bld) [Entitic vol] 9.9 fL 6.2-12.0 [facility] Determination of erythrocyte mean corpuscular volume (MCV)Ordered By: Dr. Montelongo on 03-29-2022 MCV (RBC) [Entitic vol] 98.1 fL 81-99 [facility] Hematocrit Auto (Bld) [Volum e fraction]Ordered By: Dr. Montelongo on 03-29-2022 Hematocrit (Bld) [Volume fraction] 41.5 % 37-47 [facility] Laboratory - Chemistry and C hemistry - challengeOrdered By: Dr. Montelongo on 03-29-2022 ALP [Catalytic activity/Vol] 57 U/L 45-117 [facility] ALT [Catalytic activity/Vol] 23 U/L 13-56 [facility] CO2 [Moles/Vol] 29.0 mmol/L 21.0-32.0 [facility] Globulin (S) [Mass/Vol] 3.0 g/dL 2.2-4.2 [facility] Magnesium [Mass/Vol] 2.1 mg/dL 1.6-2.6 [facility] Urea nitrogen/Creatinine [Mass ratio] 15.5 mg/mg 10-20 [facility] Laboratory - Hematology and Cell countsOrdered By: Dr. Montelongo on 03-29-2022 Erythrocyte distribution width (RBC) [Entitic vol] 48.9 fL 35.1-43.9 [facility] Erythrocyte distribution width (RBC) [Ratio] 13.4 % 11.6-14.6 [facility] Immature granulocytes/100 WBC (Bld) 1.400 % 0.0-0.9 [facility] Comment on above: IG% - Immature Granu locytes (promyelocytes, myelocytes and metamyelocytes) > 1% indicates that a LEFT SHIFT is Present. MCH (RBC) [Entitic mass] 31.2 pg 27.0-32.0 [facility] Nucleated RBC/100 WBC (Bld) [Ratio] 0.2 % 0-5 [facility] MCHC Auto (RBC) [Mass/Vol]Or dered By: Dr. Montelongo on 03-29-2022 MCHC (RBC) [Mass/Vol] 31.8 g/dL 32-36 [facility] No Panel InformationOrdered By: Dr. Montelongo on 03-29-2022 Estimated GFR (MDRD) Amer 69 mL/min >60 [facility] Comment on above: GFR Calc Estimated GFR (MDRD) Non-Af Amer 57 mL/min >60 [facility] Comment on above: Non- GFR Calc Platelets bldOrdered By: Dr. Montelongo on 03-29-2022 Platelets (Bld) [#/Vol] 403 10*3/uL 150-450 [facility] Serum or plasma albumin breana urement (mass/volume)Ordered By: Dr. Montelongo on 03-29-2022 Albumin [Mass/Vol] 3.4 g/dL 3.2-5.0 [facility] Serum or plasma albumin/glob ulin mass ratioOrdered By: Dr. Montelongo on 03-29-2022 Albumin/Globulin [Mass ratio] 1.1 {ratio} 0.9-2.4 [facility] Serum or plasma calcium breana urement (mass/volume)Ordered By: Dr. Montelongo on 03-29-2022 Calcium [Mass/Vol] 9.0 mg/dL 8.5-10.1 [facility] Serum or plasma creatinine m easurement (mass/volume)Ordered By: Dr. Montelongo on 03-29-2022 Creatinine [Mass/Vol] 1.03 mg/dL 0.55-1.02 [facility] Comment on above: The validity of the calculated GFR & GFRAA in patients over 70 years has not been determined. Clinical correlation is essential. Serum or plasma urea nitroge n measurement (mass/volume)Ordered By: Dr. Montelongo on 03-29-2022 Urea nitrogen [Mass/Vol] 16 mg/dL 7-18 [facility] Thin prep Papanicolaou smear with manual screeningOrdered By: Dr. Montelongo on 03-29-2022 Thin prep Papanicolaou smear with manual screening 12 U/L 15-37 [facility] Thin prep Papanicolaou smear with manual screening 4 5-15 [facility] No Panel Informationon 01-18 Miscellaneous Test See comment [facility] Work Phone: Comment on above: TEST RESULT LIMITSCe liac Ab tTG TIgA w/Rflxt-Transglutaminase (tTG) IgA <2 U/mL 0-3 Negative 0 - 3 Weak Positive 4 - 10 Positive >10 Tissue Transglutaminase (tTG) has been identified as the endomysial antigen. Studies have demonstr- ated that endomysial IgA antibodies have over 99% specificity for gluten sensitive enteropathy.Immunoglobulin A, Qn,Serum 47 Low mg/dL 87-352 Result confirmed on concentration.Deamidated Gliadin Abs, IgG 2 units 0-19 Negative 0 - 19 Weak Positive 20 - 30 Moderate to Strong Positive >30t-Transglutaminase (tTG) IgG <2 U/mL 0-5 Negative 0 - 5 Weak Positive 6 - 9 Positive >9 TESTING PERFORMED AT [facility]. ORIGINAL REPORT ON FILE IN LAB CONTAINS ADDITIONAL TEST SITE INFORMATION. No Panel Informationon 12-27 Stool Neutral Fats Normal . [facility] Work Phone: Comment on above: Normal (<60 Droplets /HPF) Qualitative fecal fat or lip idson 12-27-2021 Fat Ql (Stl) Normal . [facility] Work Phone: Comment on above: Normal (<100 Droplet s/HPF)Performed at: [address] [id number] Director: Yoel Goodman PhD, Phone: [phone] Basophil percentageon 2021 Bilirubin [Mass/Vol] 0.50 mg/dL 0.20-1.00 [facility] Work Phone: Comment on above: For patients on eltr ombopag therapy, use of [place] TBIL is not recommended. Chloride [Moles/Vol] 105 mmol/L 98-107 [facility] Work Phone: Glucose [Mass/Vol] 104 mg/dL 74-106 [facility] Work Phone: Comment on above: Fasting Glucose resu lt from 100 to 125 mg/dL suggests IMPAIRED HOMEOSTASIS per A.D.A. criteria. Potassium [Moles/Vol] 3.8 mmol/L 3.5-5.1 [facility] Work Phone: Protein [Mass/Vol] 7.0 g/dL 6.4-8.2 [facility] Work Phone: Sodium [Moles/Vol] 139 mmol/L 136-145 [facility] Work Phone: WBC (Bld) [#/Vol] 10.4 10*3/uL 4.4-11.0 [facility] Work Phone: Blood erythrocytes count (nu mber/volume)on 12-26-2021 RBC (Bld) [#/Vol] 4.25 10*6/uL 4.2-5.4 [facility] Work Phone: Blood hemoglobin measurement (mass/volume)on 12-26-2021 Hemoglobin (Bld) [Mass/Vol] 13.3 g/dL 12.0-15.0 [facility] Work Phone: Blood platelet mean volumeon 12-26-2021 Platelet mean volume (Bld) [Entitic vol] 10.0 fL 6.2-12.0 [facility] Work Phone: Determination of erythrocyte mean corpuscular volume (MCV)on 12-26-2021 MCV (RBC) [Entitic vol] 96.0 fL 81-99 [facility] Work Phone: Erythrocyte sedimentation ra meg 12-26-2021 ESR (Bld) [Velocity] 12 mm/h 0-30 [facility] Work Phone: Hematocrit Auto (Bld) [Volum e fraction]on 12-26-2021 Hematocrit (Bld) [Volume fraction] 40.8 % 37-47 [facility] Work Phone: Laboratory - Chemistry and C hemistry - challengeon 12-26-2021 ALP [Catalytic activity/Vol] 61 U/L 45-117 [facility] Work Phone: ALT [Catalytic activity/Vol] 17 U/L 13-56 [facility] Work Phone: CO2 [Moles/Vol] 29.0 mmol/L 21.0-32.0 [facility] Work Phone: Globulin (S) [Mass/Vol] 3.3 g/dL 2.2-4.2 [facility] Work Phone: Urea nitrogen/Creatinine [Mass ratio] 8.4 mg/mg 10-20 [facility] Work Phone: Laboratory - Hematology and Cell countson 12-26-2021 Erythrocyte distribution width (RBC) [Entitic vol] 46.2 fL 35.1-43.9 [facility] Work Phone: Erythrocyte distribution width (RBC) [Ratio] 13.1 % 11.6-14.6 [facility] Work Phone: MCH (RBC) [Entitic mass] 31.3 pg 27.0-32.0 [facility] Work Phone: MCHC Auto (RBC) [Mass/Vol]on 12-26-2021 MCHC (RBC) [Mass/Vol] 32.6 g/dL 32-36 [facility] Work Phone: No Panel Informationon 12-26 Endomysial IgA Antibody Negative Negative [facility] Work Phone: Estimated GFR (MDRD) Amer 52 mL/min >60 [facility] Work Phone: Comment on above: GFR Calc Estimated GFR (MDRD) Non-Af Amer 43 mL/min >60 [facility] Work Phone: [phone] Comment on above: Non- GFR Calc Platelets bldon 12-26-2021 Platelets (Bld) [#/Vol] 377 10*3/uL 150-450 [facility] Work Phone: Serum IgA measurement (units /volume)on 12-26-2021 IgA Qn (S) 60 mg/dL 87-352 [facility] Work Phone: Serum or plasma C reactive p rotein measurement (mass/volume)on 12-26-2021 CRP [Mass/Vol] 3.42 mg/L 0.0-3.0 [facility] Work Phone: Comment on above: C-Reactive Protein ( CRP) provides useful information for thediagnosis, therapy and monitoring of inflammatory processesand associated diseases. For the evaluation of Relative Riskfor Cardiovascular Disease, a High Sensitivity CRP (HSCRP)should be ordered. Serum or plasma albumin breana urement (mass/volume)on 12-26-2021 Albumin [Mass/Vol] 3.7 g/dL 3.2-5.0 [facility] Work Phone: Serum or plasma albumin/glob ulin mass ratioon 12-26-2021 Albumin/Globulin [Mass ratio] 1.1 {ratio} 0.9-2.4 [facility] Work Phone: Serum or plasma calcium breana urement (mass/volume)on 12-26-2021 Calcium [Mass/Vol] 9.1 mg/dL 8.5-10.1 [facility] Work Phone: Serum or plasma creatinine m easurement (mass/volume)on 12-26-2021 Creatinine [Mass/Vol] 1.31 mg/dL 0.55-1.02 [facility] Work Phone: Comment on above: The validity of the calculated GFR & GFRAA in patients over 70 years has not been determined. Clinical correlation is essential. Serum or plasma urea nitroge n measurement (mass/volume)on 12-26-2021 Urea nitrogen [Mass/Vol] 11 mg/dL 7-18 [facility] Work Phone: Serum tissue transglutaminas e IgA antibody assay (units/volume)on 12-26-2021 tTG IgA Qn (S) <2 U/mL 0-3 [facility] Work Phone: Comment on above: Negative 0 - 3 Weak Positive 4 - 10 Positive >10 Tissue Transglutaminase (tTG) has been identified as the endomysial antigen. Studies have demonstr- ated that endomysial IgA antibodies have over 99% specificity for gluten sensitive enteropathy. Thin prep Papanicolaou smear with manual screeningon 12-26-2021 Thin prep Papanicolaou smear with manual screening 17 U/L 15-37 [facility] Work Phone: Thin prep Papanicolaou smear with manual screening 5 5-15 [facility] Work Phone: Absolute lymphocyte countOrd ered By: Dr. Simental on 11-15-2021 Lymphocytes Auto (Unsp spec) [#/Vol] 1.76 10*3/uL 0.83-4.51 [facility] Basophil percentageOrdered B y: Dr. Simental on 11-15-2021 Basophils/100 WBC (Bld) 0.5 % 0-1 [facility] Bilirubin [Mass/Vol] 0.50 mg/dL 0.20-1.00 [facility] Comment on above: For patients on eltr ombopag therapy, use of [place] TBIL is not recommended. Chloride [Moles/Vol] 108 mmol/L 98-107 [facility] Eosinophils/100 WBC (Bld) 2.1 % 0-5 [facility] Glucose [Mass/Vol] 111 mg/dL 74-106 [facility] Comment on above: Fasting Glucose resu lt from 100 to 125 mg/dL suggests IMPAIRED HOMEOSTASIS per A.D.A. criteria. Neutrophils (Bld) [#/Vol] 8.1 10*3/uL 2.0-7.7 [facility] Neutrophils/100 WBC (Bld) 74.7 % 47-70 [facility] Potassium [Moles/Vol] 4.3 mmol/L 3.5-5.1 [facility] Protein [Mass/Vol] 6.8 g/dL 6.4-8.2 [facility] Sodium [Moles/Vol] 141 mmol/L 136-145 [facility] WBC (Bld) [#/Vol] 10.8 10*3/uL 4.4-11.0 [facility] Blood erythrocytes count (nu mber/volume)Ordered By: Dr. Simental on 11-15-2021 RBC (Bld) [#/Vol] 4.21 10*6/uL 4.2-5.4 [facility] Blood hemoglobin measurement (mass/volume)Ordered By: Dr. Simental on 11-15-2021 Hemoglobin (Bld) [Mass/Vol] 13.3 g/dL 12.0-15.0 [facility] Blood lymphocytes/100 leukoc ytesOrdered By: Dr. Simental on 11-15-2021 Lymphocytes/100 WBC (Bld) 16.2 % 19-41 [facility] Blood monocytes/100 leukocyt esOrdered By: Dr. Simental on 11-15-2021 Monocytes/100 WBC (Bld) 5.8 % 0-10 [facility] Blood platelet mean volumeOr dered By: Dr. Simental on 11-15-2021 Platelet mean volume (Bld) [Entitic vol] 9.7 fL 6.2-12.0 [facility] Determination of erythrocyte mean corpuscular volume (MCV)Ordered By: Dr. Simental on 11-15-2021 MCV (RBC) [Entitic vol] 94.8 fL 81-99 [facility] Hematocrit Auto (Bld) [Volum e fraction]Ordered By: Dr. Simental on 11-15-2021 Hematocrit (Bld) [Volume fraction] 39.9 % 37-47 [facility] Iron (Unsp spec) [Mass/Mass] Ordered By: Jennifer Simental on 11-15-2021 Iron [Mass/Vol] 95 ug/dL 50-170 [facility] Iron measurement (mass/mass) Ordered By: Dr. Simental on 11-15-2021 Iron (Unsp spec) [Mass/Mass] 95 ug/dL 50-170 [facility] Iron saturation [Mass fracti on]Ordered By: Jennifer Simental on 11-15-2021 Iron Saturation 30.9 % 15.0-55.0 [facility] Laboratory - Chemistry and C hemistry - challengeOrdered By: Dr. Simental on 11-15-2021 ALP [Catalytic activity/Vol] 59 U/L 45-117 [facility] ALT [Catalytic activity/Vol] 16 U/L 13-56 [facility] CO2 [Moles/Vol] 27.0 mmol/L 21.0-32.0 [facility] Cobalamin (Vitamin B12) [Mass/Vol] 1448 pg/mL High 211-911 [facility] Globulin (S) [Mass/Vol] 3.4 g/dL 2.2-4.2 [facility] Urea nitrogen/Creatinine [Mass ratio] 11.3 mg/mg 10-20 [facility] Laboratory - Hematology and Cell countsOrdered By: Dr. Simental on 11-15-2021 Erythrocyte distribution width (RBC) [Entitic vol] 45.8 fL 35.1-43.9 [facility] Erythrocyte distribution width (RBC) [Ratio] 13.2 % 11.6-14.6 [facility] Immature granulocytes/100 WBC (Bld) 0.700 % 0.0-0.9 [facility] Comment on above: IG% - Immature Granu locytes (promyelocytes, myelocytes and metamyelocytes) > 1% indicates that a LEFT SHIFT is Present. MCH (RBC) [Entitic mass] 31.6 pg 27.0-32.0 [facility] Nucleated RBC/100 WBC (Bld) [Ratio] 0 % 0-5 [facility] MCHC Auto (RBC) [Mass/Vol]Or dered By: Dr. Simental on 11-15-2021 MCHC (RBC) [Mass/Vol] 33.3 g/dL 32-36 [facility] No Panel InformationOrdered By: Dr. Simental on 11-15-2021 Estimated Creatinine Clearance Calc 36.93 ml/min [facility] Estimated GFR (MDRD) Amer 51 mL/min >60 [facility] Comment on above: GFR Calc Estimated GFR (MDRD) Non-Af Amer 42 mL/min >60 [facility] Comment on above: Non- GFR Calc Total Iron Binding Capacity 307 ug/dL 250-450 [facility] Platelets bldOrdered By: Dr. Simental on 11-15-2021 Platelets (Bld) [#/Vol] 399 10*3/uL 150-450 [facility] Serum or plasma albumin breana urement (mass/volume)Ordered By: Dr. Simental on 11-15-2021 Albumin [Mass/Vol] 3.4 g/dL 3.2-5.0 [facility] Serum or plasma albumin/glob ulin mass ratioOrdered By: Dr. Simental on 11-15-2021 Albumin/Globulin [Mass ratio] 1.0 {ratio} 0.9-2.4 [facility] Serum or plasma calcium breana urement (mass/volume)Ordered By: Dr. Simental on 11-15-2021 Calcium [Mass/Vol] 9.4 mg/dL 8.5-10.1 [facility] Serum or plasma creatinine m easurement (mass/volume)Ordered By: Dr. Simental on 11-15-2021 Creatinine [Mass/Vol] 1.33 mg/dL 0.55-1.02 [facility] Comment on above: The validity of the calculated GFR & GFRAA in patients over 70 years has not been determined. Clinical correlation is essential. Serum or plasma iron saturat ion measurement (mass fraction)Ordered By: Dr. Simental on 11-15-2021 Iron saturation [Mass fraction] 30.9 % 15.0-55.0 [facility] Serum or plasma urea nitroge n measurement (mass/volume)Ordered By: Dr. Simental on 11-15-2021 Urea nitrogen [Mass/Vol] 15 mg/dL 7-18 [facility] Thin prep Papanicolaou smear with manual screeningOrdered By: Dr. Simental on 11-15-2021 Thin prep Papanicolaou smear with manual screening 13 U/L 15-37 [facility] Thin prep Papanicolaou smear with manual screening 6 5-15 [facility] Basophil percentageon 2021 Creatinine [Mass/Vol] 1.1 mg/dL 0.55-1.02 [facility] Work Phone: Laboratory - Chemistry and C hemistry - challengeon 11-08-2021 GFR/1.73 sq M.predicted among non-blacks MDRD (S/P/Bld) [Vol rate/Area] 51.0000 mL/min/{1.73_m2} >60 [facility] Work Phone: Vital Signs Date Time Vital Sign Value Performing Clinician Richelle herrera 08-02-2024 11:04-0400 Body height 165.[address] Chris Montelongo MD Work Phone: [facility] 08-02-2024 11:04-0400 Body mass index (BMI) [Ratio] 33.3 kg/m2 Dr. Chris Montelongo MD Work Phone: [facility] 08-02-2024 11:04-0400 Body temperature 98 [degF] Dr. Chris Montelongo MD Work Phone: [facility] 08-02-2024 11:04-0400 Body weight 90.[address] Chris Montelongo MD Work Phone: [facility] 08-02-2024 11:04-0400 Diastolic blood pressure 78 mm[Hg] Dr. Chris Montelongo MD Work Phone: [facility] 08-02-2024 11:04-0400 Heart rate 79 /min Dr. Chris Montelongo MD Work Phone: [facility] 08-02-2024 11:04-0400 Respiratory rate 18 /min Dr. Chris Montleongo MD Work Phone: [facility] 08-02-2024 11:04-0400 SaO2% (BldA) [Mass fraction] 96 % Dr. Chris Montelongo MD Work Phone: [facility] 08-02-2024 11:04-0400 Systolic blood pressure 124 mm[Hg] Dr. Chris Montelongo MD Work Phone: [facility] 07-01-2024 15:22-0500 Body height 165.[address] Chris Montelongo MD Work Phone: [facility] 07-01-2024 14:20-0500 Body mass index (BMI) [Ratio] 33.5 kg/m2 Dr. Chris Montelongo MD Work Phone: [facility] 07-01-2024 14:20-0500 Body temperature 97.6 [degF] Dr. Chris Montelongo MD Work Phone: [facility] 07-01-2024 14:20-0500 Body weight 91.[address] Chris Montelongo MD Work Phone: [facility] 07-01-2024 14:20-0500 Diastolic blood pressure 78 mm[Hg] Dr. Chris Montelongo MD Work Phone: [facility] 07-01-2024 14:20-0500 Heart rate 61 /min Dr. Chris Montelongo MD Work Phone: [facility] 07-01-2024 14:20-0500 Respiratory rate 16 /min Dr. Chris Montelongo MD Work Phone: [facility] 07-01-2024 14:20-0500 SaO2% (BldA) [Mass fraction] 95 % Dr. Chris Montelongo MD Work Phone: [facility] 07-01-2024 14:20-0500 Systolic blood pressure 136 mm[Hg] Dr. Chris Montelongo MD Work Phone: [facility] 06-01-2024 12:38-0500 Body mass index (BMI) [Ratio] 33.7 kg/m2 Dr. Chris Montelongo MD Work Phone: [facility] 06-01-2024 12:38-0500 Body temperature 97.4 [degF] Dr. Chris Montelongo MD Work Phone: [facility] 06-01-2024 12:38-0500 Body weight 92.[address] Chris Montelongo MD Work Phone: [facility] 06-01-2024 12:38-0500 Diastolic blood pressure 82 mm[Hg] Dr. Chris Montelongo MD Work Phone: [facility] 06-01-2024 12:38-0500 Heart rate 70 /min Dr. Chris Montelongo MD Work Phone: [facility] 06-01-2024 12:38-0500 Respiratory rate 18 /min Dr. Chris Montelongo MD Work Phone: [facility] 06-01-2024 12:38-0500 SaO2% (BldA) [Mass fraction] 95 % Dr. Chris Montelongo MD Work Phone: [facility] 06-01-2024 12:38-0500 Systolic blood pressure 143 mm[Hg] Dr. Chris Montelongo MD Work Phone: [facility] 05-05-2024 10:48-0500 Body mass index (BMI) [Ratio] 32.1 kg/m2 Dr. Chris Montelongo MD Work Phone: [facility] 05-05-2024 10:48-0500 Body temperature 97 [degF] Dr. Chris Montelongo MD Work Phone: [facility] 05-05-2024 10:48-0500 Body weight 87.[address] Chris Montelongo MD Work Phone: [facility] 05-05-2024 10:48-0500 Diastolic blood pressure 62 mm[Hg] Dr. Chris Montelongo MD Work Phone: [facility] 05-05-2024 10:48-0500 Heart rate 77 /min Dr. Chris Montelongo MD Work Phone: [facility] 05-05-2024 10:48-0500 Respiratory rate 16 /min Dr. Chris Montelongo MD Work Phone: [facility] 05-05-2024 10:48-0500 SaO2% (BldA) [Mass fraction] 97 % Dr. Chris Montelongo MD Work Phone: [facility] 05-05-2024 10:48-0500 Systolic blood pressure 122 mm[Hg] Dr. Chris Montelongo MD Work Phone: [facility] 04-16-2024 11:18-0500 Body temperature 97 [degF] Dr. Chris Montelongo MD Work Phone: [facility] 04-16-2024 11:18-0500 Body weight 87.[address] Chris Montelongo MD Work Phone: [facility] 04-16-2024 11:18-0500 Diastolic blood pressure 91 mm[Hg] Dr. Chris Montelongo MD Work Phone: [facility] 04-16-2024 11:18-0500 Heart rate 71 /min Dr. Chris Montelongo MD Work Phone: [facility] 04-16-2024 11:18-0500 Respiratory rate 16 /min Dr. Chris Montelongo MD Work Phone: [facility] 04-16-2024 11:18-0500 SaO2% (BldA) [Mass fraction] 95 % Dr. Chris Montelongo MD Work Phone: [facility] 04-16-2024 11:18-0500 Systolic blood pressure 159 mm[Hg] Dr. Chris Montelongo MD Work Phone: [facility] 04-09-2024 13:51-0500 Body mass index (BMI) [Ratio] 31.6 kg/m2 Dr. Chris Montelongo MD Work Phone: [facility] 04-09-2024 13:51-0500 Body temperature 98.2 [degF] Dr. Chris Montelongo MD Work Phone: [facility] 04-09-2024 13:51-0500 Body weight 86.[address] Chris Montelongo MD Work Phone: [facility] 04-09-2024 13:51-0500 Diastolic blood pressure 82 mm[Hg] Dr. Chris Montelongo MD Work Phone: [facility] 04-09-2024 13:51-0500 Heart rate 72 /min Dr. Chris Montelongo MD Work Phone: [facility] 04-09-2024 13:51-0500 Respiratory rate 18 /min Dr. Chris Montelongo MD Work Phone: [facility] 04-09-2024 13:51-0500 SaO2% (BldA) [Mass fraction] 99 % Dr. Chris Montelongo MD Work Phone: [facility] 04-09-2024 13:51-0500 Systolic blood pressure 128 mm[Hg] Dr. Chris Montelongo MD Work Phone: [facility] 04-02-2024 13:06-0500 Body temperature 98.4 [degF] Dr. Chris Montelongo MD Work Phone: [facility] 04-02-2024 13:06-0500 Diastolic blood pressure 83 mm[Hg] Dr. Chris Montelongo MD Work Phone: [facility] 04-02-2024 13:06-0500 Heart rate 73 /min Dr. Chris Montelongo MD Work Phone: [facility] 04-02-2024 13:06-0500 Respiratory rate 16 /min Dr. Chris Montelongo MD Work Phone: [facility] 04-02-2024 13:06-0500 SaO2% (BldA) [Mass fraction] 95 % Dr. Chris Montelongo MD Work Phone: [facility] 04-02-2024 13:06-0500 Systolic blood pressure 124 mm[Hg] Dr. Chris Montelongo MD Work Phone: [facility] 03-30-2024 11:17-0500 Body mass index (BMI) [Ratio] 31.9 kg/m2 Dr. Chris Montelongo MD Work Phone: [facility] 03-30-2024 11:17-0500 Body weight 87.[address] Chris Montelongo MD Work Phone: [facility] 03-28-2024 14:42-0500 Body mass index (BMI) [Ratio] 32.8 kg/m2 Dr. Chris Montelongo MD Work Phone: [facility] 03-28-2024 14:42-0500 Body temperature 97.8 [degF] Dr. Chris Montelongo MD Work Phone: [facility] 03-28-2024 14:42-0500 Body weight 89.[address] Chris Montelongo MD Work Phone: [facility] 03-28-2024 14:42-0500 Diastolic blood pressure 84 mm[Hg] Dr. Chris Montelongo MD Work Phone: [facility] 03-28-2024 14:42-0500 Heart rate 69 /min Dr. Chris Montelongo MD Work Phone: [facility] 03-28-2024 14:42-0500 Respiratory rate 16 /min Dr. Chris Montelongo MD Work Phone: [facility] 03-28-2024 14:42-0500 SaO2% (BldA) [Mass fraction] 95 % Dr. Chris Montelongo MD Work Phone: [facility] 03-28-2024 14:42-0500 Systolic blood pressure 167 mm[Hg] Dr. Chris oMntelongo MD Work Phone: [facility] 01-08-2024 15:03-0400 Body mass index (BMI) [Ratio] 32 kg/m2 Dr. Chris Montelongo MD Work Phone: [facility] 07-10-2023 12:09-0400 Body height 165.[address] Chris Montelongo Work Phone: [facility] 07-10-2023 12:09-0400 Body mass index (BMI) [Ratio] 31.8 kg/m2 Dr. Chris Montelongo Work Phone: [facility] 07-10-2023 12:09-0400 Body weight 86.[address] Chris Montelongo Work Phone: [facility] 07-10-2023 11:11-0400 Body mass index (BMI) [Ratio] 31.8 kg/m2 Dr. Chris Montelongo Work Phone: [facility] 07-10-2023 11:11-0400 Body temperature 98 [degF] Dr. Chris Montelongo Work Phone: [facility] 07-10-2023 11:11-0400 Body weight 86.[address] Chris Montelongo Work Phone: [facility] 07-10-2023 11:11-0400 Diastolic blood pressure 75 mm[Hg] Dr. Chris Montelongo Work Phone: [facility] 07-10-2023 11:11-0400 Heart rate 58 /min Dr. Chris Montelongo Work Phone: [facility] 07-10-2023 11:11-0400 Respiratory rate 18 /min Dr. Chris Montelongo Work Phone: [facility] 07-10-2023 11:11-0400 SaO2% (BldA) [Mass fraction] 97 % Dr. Chris Montelongo Work Phone: [facility] 07-10-2023 11:11-0400 Systolic blood pressure 113 mm[Hg] Dr. Chris Montelongo Work Phone: [facility] 07-02-2023 09:54-0500 Body height 165.[address] Chris Montelongo Work Phone: [facility] 07-02-2023 09:54-0500 Body mass index (BMI) [Ratio] 32 kg/m2 Dr. Chris Montelongo Work Phone: [facility] 07-02-2023 09:54-0500 Body temperature 97.1 [degF] Dr. Chris Montelongo Work Phone: [facility] 07-02-2023 09:54-0500 Body weight 87.[address] Chris Montelongo Work Phone: [facility] 07-02-2023 09:54-0500 Diastolic blood pressure 74 mm[Hg] Dr. Chris Montelongo Work Phone: [facility] 07-02-2023 09:54-0500 Heart rate 91 /min Dr. Chris Montelongo Work Phone: [facility] 07-02-2023 09:54-0500 Respiratory rate 16 /min Dr. Chris Montelongo Work Phone: [facility] 07-02-2023 09:54-0500 SaO2% (BldA) [Mass fraction] 98 % Dr. Chris Montelongo Work Phone: [facility] 07-02-2023 09:54-0500 Systolic blood pressure 120 mm[Hg] Dr. Chris Montelongo Work Phone: [facility] 05-27-2023 11:58-0500 Body height 165.[address] Chris Montelongo Work Phone: [facility] 05-27-2023 11:58-0500 Body mass index (BMI) [Ratio] 31.1 kg/m2 Dr. Chris Montelongo Work Phone: [facility] 05-27-2023 11:58-0500 Body temperature 98.4 [degF] Dr. Chris Montelongo Work Phone: [facility] 05-27-2023 11:58-0500 Body weight 85.[address] Chris Montelongo Work Phone: [facility] 05-27-2023 11:58-0500 Diastolic blood pressure 85 mm[Hg] Dr. Chris Montelongo Work Phone: [facility] 05-27-2023 11:58-0500 Heart rate 72 /min Dr. Chris Montelongo Work Phone: [facility] 05-27-2023 11:58-0500 Respiratory rate 18 /min Dr. Chris Montelongo Work Phone: [facility] 05-27-2023 11:58-0500 SaO2% (BldA) [Mass fraction] 96 % Dr. Chris Montelongo Work Phone: [facility] 05-27-2023 11:58-0500 Systolic blood pressure 132 mm[Hg] Dr. Chris Montelongo Work Phone: [facility] 02-26-2023 11:30-0400 Body height 165.[address] Chris Montelongo Work Phone: [facility] 02-26-2023 11:30-0400 Body mass index (BMI) [Ratio] 31.8 kg/m2 Dr. Chris Montelongo Work Phone: [facility] 02-26-2023 11:30-0400 Body temperature 98.2 [degF] Dr. Chris Montelongo Work Phone: [facility] 02-26-2023 11:30-0400 Body weight 86.[address] Chris Montleongo Work Phone: [facility] 02-26-2023 11:30-0400 Diastolic blood pressure 84 mm[Hg] Dr. Chris Montelongo Work Phone: [facility] 02-26-2023 11:30-0400 Heart rate 69 /min Dr. Chris Montelongo Work Phone: [facility] 02-26-2023 11:30-0400 SaO2% (BldA) [Mass fraction] 95 % Dr. Chris Montelongo Work Phone: [facility] 02-26-2023 11:30-0400 Systolic blood pressure 132 mm[Hg] Dr. Chris Montelongo Work Phone: [facility] 01-10-2023 10:44-0400 Body height 165.[address] Chris Montelongo Work Phone: [facility] 01-10-2023 10:44-0400 Body mass index (BMI) [Ratio] 31.8 kg/m2 Dr. Chris Montelongo Work Phone: [facility] 01-10-2023 10:44-0400 Body temperature 96 [degF] Dr. Chris Montelongo Work Phone: [facility] 01-10-2023 10:44-0400 Body weight 86.[address] Chris Montelongo Work Phone: [facility] 01-10-2023 10:44-0400 Diastolic blood pressure 86 mm[Hg] Dr. Chris Montelongo Work Phone: [facility] 01-10-2023 10:44-0400 Heart rate 70 /min Dr. Chris Montelongo Work Phone: [facility] 01-10-2023 10:44-0400 Respiratory rate 18 /min Dr. Chris Montelongo Work Phone: [facility] 01-10-2023 10:44-0400 SaO2% (BldA) [Mass fraction] 99 % Dr. Chris Montelongo Work Phone: [facility] 01-10-2023 10:44-0400 Systolic blood pressure 132 mm[Hg] Dr. Chris Montelongo Work Phone: [facility] 01-02-2023 15:25-0400 Body mass index (BMI) [Ratio] 31 kg/m2 Dr. Chris Montelongo Work Phone: [facility] 01-02-2023 15:25-0400 Body weight 84.[address] Chris Montelongo Work Phone: [facility] 01-02-2023 13:44-0400 Body mass index (BMI) [Ratio] 31 kg/m2 Dr. Chris Montelongo Work Phone: [facility] 01-02-2023 13:44-0400 Body temperature 97.6 [degF] Dr. Chris Montelongo Work Phone: [facility] 01-02-2023 13:44-0400 Body weight 84.[address] Chris Montelongo Work Phone: [facility] 01-02-2023 13:44-0400 Diastolic blood pressure 72 mm[Hg] Dr. Chris Montelongo Work Phone: [facility] 01-02-2023 13:44-0400 Heart rate 71 /min Dr. Chris Montelongo Work Phone: [facility] 01-02-2023 13:44-0400 Respiratory rate 16 /min Dr. Chris Montelongo Work Phone: [facility] 01-02-2023 13:44-0400 SaO2% (BldA) [Mass fraction] 97 % Dr. Chris Montelongo Work Phone: [facility] 01-02-2023 13:44-0400 Systolic blood pressure 110 mm[Hg] Dr. Chris Montelongo Work Phone: [facility] 10-02-2022 11:07-0400 Body height 165.[address] Chris Montelongo Work Phone: [facility] 10-02-2022 11:07-0400 Body mass index (BMI) [Ratio] 30 kg/m2 Dr. Chris Montelongo Work Phone: [facility] 10-02-2022 11:07-0400 Body temperature 95.2 [degF] Dr. Chris Montelongo Work Phone: [facility] 10-02-2022 11:07-0400 Body weight 81.[address] Chris Montelongo Work Phone: [facility] 10-02-2022 11:07-0400 Diastolic blood pressure 98 mm[Hg] Dr. Chris Montelongo Work Phone: [facility] 10-02-2022 11:07-0400 Heart rate 80 /min Dr. Chris Montelongo Work Phone: [facility] 10-02-2022 11:07-0400 Respiratory rate 18 /min Dr. Chris Montelongo Work Phone: [facility] 10-02-2022 11:07-0400 SaO2% (BldA) [Mass fraction] 98 % Dr. Chris Montelongo Work Phone: [facility] 10-02-2022 11:07-0400 Systolic blood pressure 144 mm[Hg] Dr. Chris Montelongo Work Phone: [facility] 09-04-2022 15:12-0400 Body height 165.[address] Chris Montelongo Work Phone: [facility] 09-04-2022 15:12-0400 Body mass index (BMI) [Ratio] 30.3 kg/m2 Dr. Chris Montelongo Work Phone: [facility] 09-04-2022 15:12-0400 Body temperature 98.2 [degF] Dr. Chris Montelongo Work Phone: [facility] 09-04-2022 15:12-0400 Body weight 82.[address] Chris Montelongo Work Phone: [facility] 09-04-2022 15:12-0400 Diastolic blood pressure 63 mm[Hg] Dr. Chris Montelongo Work Phone: [facility] 09-04-2022 15:12-0400 Heart rate 71 /min Dr. Chris Montelongo Work Phone: [facility] 09-04-2022 15:12-0400 Respiratory rate 16 /min Dr. Chris Montelongo Work Phone: [facility] 09-04-2022 15:12-0400 SaO2% (BldA) [Mass fraction] 94 % Dr. Chris Montelongo Work Phone: [facility] 09-04-2022 15:12-0400 Systolic blood pressure 101 mm[Hg] Dr. Chris Montelongo Work Phone: [facility] 07-01-2022 09:10-0500 Body height 165.[address] Chris Montelongo Work Phone: [facility] 07-01-2022 09:10-0500 Body mass index (BMI) [Ratio] 29.5 kg/m2 Dr. Chris Montelongo Work Phone: [facility] 07-01-2022 09:10-0500 Body temperature 97.3 [degF] Dr. Chris Montelongo Work Phone: [facility] 07-01-2022 09:10-0500 Body weight 80.[address] Chris Montelongo Work Phone: [facility] 07-01-2022 09:10-0500 Diastolic blood pressure 82 mm[Hg] Dr. Chris Montelongo Work Phone: [facility] 07-01-2022 09:10-0500 Heart rate 97 /min Dr. Chris Montelongo Work Phone: [facility] 07-01-2022 09:10-0500 Respiratory rate 18 /min Dr. Chris Montelongo Work Phone: [facility] 07-01-2022 09:10-0500 SaO2% (BldA) [Mass fraction] 97 % Dr. Chris Montelongo Work Phone: [facility] 07-01-2022 09:10-0500 Systolic blood pressure 140 mm[Hg] Dr. Chris Montelongo Work Phone: [facility] 06-06-2022 14:19-0500 Body mass index (BMI) [Ratio] 32.1 kg/m2 Dr. Chris Montelongo Work Phone: [facility] 06-06-2022 14:19-0500 Body temperature 97 [degF] Dr. Chris Montelongo Work Phone: [facility] 06-06-2022 14:19-0500 Body weight 87.[address] Chris Montelongo Work Phone: [facility] 06-06-2022 14:19-0500 Diastolic blood pressure 89 mm[Hg] Dr. Chris Montelongo Work Phone: [facility] 06-06-2022 14:19-0500 Heart rate 52 /min Dr. Chris Montelongo Work Phone: [facility] 06-06-2022 14:19-0500 Respiratory rate 16 /min Dr. Chris Montelongo Work Phone: [facility] 06-06-2022 14:19-0500 SaO2% (BldA) [Mass fraction] 96 % Dr. Chris Montelongo Work Phone: [facility] 06-06-2022 14:19-0500 Systolic blood pressure 150 mm[Hg] Dr. Chris Montelongo Work Phone: [facility] 05-29-2022 13:45-0500 Body height 166.[address] Chris Montelongo Work Phone: [facility] 05-29-2022 13:45-0500 Body mass index (BMI) [Ratio] 29 kg/m2 Dr. Chris Montelongo Work Phone: [facility] 05-29-2022 13:45-0500 Body temperature 97.4 [degF] Dr. Chris Montelongo Work Phone: [facility] 05-29-2022 13:45-0500 Body weight 80.[address] Chris Montelongo Work Phone: [facility] 05-29-2022 13:45-0500 Diastolic blood pressure 79 mm[Hg] Dr. Chris Montelongo Work Phone: [facility] 05-29-2022 13:45-0500 Heart rate 72 /min Dr. Chris Montelongo Work Phone: [facility] 05-29-2022 13:45-0500 Respiratory rate 16 /min Dr. Chris Montelongo Work Phone: [facility] 05-29-2022 13:45-0500 SaO2% (BldA) [Mass fraction] 96 % Dr. Chris Montelongo Work Phone: [facility] 05-29-2022 13:45-0500 Systolic blood pressure 125 mm[Hg] Dr. Chris Montelongo Work Phone: [facility] 05-21-2022 11:54-0500 Body mass index (BMI) [Ratio] 28.8 kg/m2 Dr. Chris Montelongo Work Phone: [facility] 05-21-2022 11:54-0500 Body temperature 97 [degF] Dr. Chris Montelongo Work Phone: [facility] 05-21-2022 11:54-0500 Body weight 79.[address] Chris Montelongo Work Phone: [facility] 05-21-2022 11:54-0500 Diastolic blood pressure 72 mm[Hg] Dr. Chris Montelongo Work Phone: [facility] 05-21-2022 11:54-0500 Heart rate 54 /min Dr. Chris Montelongo Work Phone: [facility] 05-21-2022 11:54-0500 Respiratory rate 16 /min Dr. Chris Montelongo Work Phone: [facility] 05-21-2022 11:54-0500 SaO2% (BldA) [Mass fraction] 98 % Dr. Chris Montelongo Work Phone: [facility] 05-21-2022 11:54-0500 Systolic blood pressure 127 mm[Hg] Dr. Chris Montelongo Work Phone: [facility] 03-29-2022 10:11-0500 Body height 166.[address] Chris Montelongo Work Phone: [facility] Work Phone: 03-29-2022 10:11-0500 Body mass index (BMI) [Ratio] 28.5 kg/m2 Dr. Chris Montelongo Work Phone: [facility] 03-29-2022 10:11-0500 Body temperature 96 [degF] Dr. Chris Montelongo Work Phone: [facility] 03-29-2022 10:11-0500 Body weight 78.[address] Chris Montelongo Work Phone: [facility] 03-29-2022 10:11-0500 Diastolic blood pressure 84 mm[Hg] Dr. Chris Montelongo Work Phone: [facility] 03-29-2022 10:11-0500 Heart rate 59 /min Dr. Chris Montelongo Work Phone: [facility] 03-29-2022 10:11-0500 Respiratory rate 16 /min Dr. Chris Montelongo Work Phone: [facility] 03-29-2022 10:11-0500 SaO2% (BldA) [Mass fraction] 95 % Dr. Chris Montelongo Work Phone: [facility] 03-29-2022 10:11-0500 Systolic blood pressure 122 mm[Hg] Dr. Chris Montelongo Work Phone: [facility] 02-21-2022 14:04-0400 Body height 166.[address] Chris Montelongo Work Phone: [facility] Work Phone: 02-21-2022 14:02-0400 Body mass index (BMI) [Ratio] 28.8 kg/m2 Dr. Chris Montelongo Work Phone: [facility] 02-21-2022 14:02-0400 Body temperature 97.2 [degF] Dr. Chris Montelongo Work Phone: [facility] 02-21-2022 14:02-0400 Body weight 79.[address] Chris Montelongo Work Phone: [facility] 02-21-2022 14:02-0400 Diastolic blood pressure 76 mm[Hg] Dr. Chris Montelongo Work Phone: [facility] 02-21-2022 14:02-0400 Heart rate 57 /min Dr. Chris Montelongo Work Phone: [facility] 02-21-2022 14:02-0400 Respiratory rate 16 /min Dr. Chris Montelongo Work Phone: [facility] 02-21-2022 14:02-0400 SaO2% (BldA) [Mass fraction] 95 % Dr. Chris Montelongo Work Phone: [facility] 02-21-2022 14:02-0400 Systolic blood pressure 132 mm[Hg] Dr. Chris Montelongo Work Phone: [facility] 11-15-2021 14:20-0400 Body height 166.[address] Chris Montelongo Work Phone: [facility] Work Phone: 11-15-2021 14:20-0400 Body mass index (BMI) [Ratio] 31.6 kg/m2 Dr. Chris Montelongo Work Phone: [facility] Work Phone: 11-15-2021 14:20-0400 Body mass index (BMI) [Ratio] 29.1 kg/m2 Dr. Chris Montelongo Work Phone: [facility] Work Phone: 11-15-2021 14:20-0400 Body temperature 97.5 [degF] Dr. Chris Montelongo Work Phone: [facility] Work Phone: 11-15-2021 14:20-0400 Body weight 87.[address] Chris Montelongo Work Phone: [facility] Work Phone: 11-15-2021 14:20-0400 Body weight 80.[address] Chris Montelongo Work Phone: [facility] Work Phone: 11-15-2021 14:20-0400 Diastolic blood pressure 78 mm[Hg] Dr. Chris Montelongo Work Phone: [facility] Work Phone: 11-15-2021 14:20-0400 Heart rate 57 /min Dr. Chris Montelongo Work Phone: [facility] Work Phone: 11-15-2021 14:20-0400 Respiratory rate 14 /min Dr. Chris Montelongo Work Phone: [facility] Work Phone: 11-15-2021 14:20-0400 SaO2% (BldA) [Mass fraction] 97 % Dr. Chris Montelongo Work Phone: [facility] Work Phone: 11-15-2021 14:20-0400 Systolic blood pressure 126 mm[Hg] Dr. Chris Montelongo Work Phone: [facility] Work Phone: 11-15-2021 13:40-0400 Body mass index (BMI) [Ratio] 28.5 kg/m2 Dr. Chris Montelongo Work Phone: [facility] Work Phone: 11-15-2021 13:40-0400 Body temperature 97.4 [degF] Dr. Chris Montelonog Work Phone: [facility] Work Phone: 11-15-2021 13:40-0400 Body weight 79.[address] Chris Montelongo Work Phone: [facility] Work Phone: 11-15-2021 13:40-0400 Diastolic blood pressure 87 mm[Hg] Dr. Chris Montelongo Work Phone: [facility] Work Phone: 11-15-2021 13:40-0400 Heart rate 60 /min Dr. Chris Montelongo Work Phone: [facility] Work Phone: 11-15-2021 13:40-0400 Respiratory rate 14 /min Dr. Chris Montelongo Work Phone: [facility] Work Phone: 11-15-2021 13:40-0400 SaO2% (BldA) [Mass fraction] 97 % Dr. Chris Montelongo Work Phone: [facility] Work Phone: 11-15-2021 13:40-0400 Systolic blood pressure 134 mm[Hg] Dr. Chris Montelongo Work Phone: [facility] Work Phone: 09-20-2021 16:40-0400 Body mass index (BMI) [Ratio] 30.1 kg/m2 Dr. Chris Montelongo Work Phone: [facility] Work Phone: 09-20-2021 16:40-0400 Body temperature 97.1 [degF] Dr. Chris Montelongo Work Phone: [facility] Work Phone: 09-20-2021 16:40-0400 Body weight 83.[address] Chrsi Montelongo Work Phone: [facility] Work Phone: 09-20-2021 16:40-0400 Diastolic blood pressure 78 mm[Hg] Dr. Chris Montelongo Work Phone: [facility] Work Phone: 09-20-2021 16:40-0400 Heart rate 71 /min Dr. Chris Montelongo Work Phone: [facility] Work Phone: 09-20-2021 16:40-0400 Respiratory rate 14 /min Dr. Chris Montelongo Work Phone: [facility] Work Phone: 09-20-2021 16:40-0400 SaO2% (BldA) [Mass fraction] 98 % Dr. Chris Montelongo Work Phone: [facility] Work Phone: 09-20-2021 16:40-0400 Systolic blood pressure 114 mm[Hg] Dr. Chris Montelongo Work Phone: [facility] Work Phone: 07-27-2020 09:31-0400 Body temperature 98.1 [degF] Dr. Chris Montelongo Work Phone: [facility] Work Phone: 07-27-2020 09:31-0400 Diastolic blood pressure 102 mm[Hg] Dr. Chris Montelongo Work Phone: [facility] Work Phone: 07-27-2020 09:31-0400 Heart rate 55 /min Dr. Chris Montelongo Work Phone: [facility] Work Phone: 07-27-2020 09:31-0400 Respiratory rate 16 /min Dr. Chris Montelongo Work Phone: [facility] Work Phone: 07-27-2020 09:31-0400 SaO2% (BldA) [Mass fraction] 93 % Dr. Chris Montelongo Work Phone: [facility] Work Phone: 07-27-2020 09:31-0400 Systolic blood pressure 169 mm[Hg] Dr. Chris Montelongo Work Phone: [facility] Work Phone: Encounters Encounter Date Encounter Type Care Provider Facility Start: 10-23-2024 [facility] Start: 09-29-2024 End: 09-29-[address] Chris Montelongo MD Work Phone: [facility] Work Phone: Start: 09-29-2024 End: 09-29-[address] Octavia Hector MD -Laboratory Work Phone: Start: 09-29-2024 End: 09-29-2024 ambulatory [facility] Facility:[facility] Start: 08-02-2024 End: 08-02-[address] Chris Montelongo MD -[facility] Work Phone: Start: 08-02-2024 End: 08-02-[address] [facility] [place] Start: 07-05-2024 End: 07-05-[address] Chris Montelongo MD Work Phone: [facility] Work Phone: Start: 07-05-2024 End: 07-05-[address] Octavia Hector MD -Laboratory Work Phone: Start: 07-05-2024 End: 07-05-2024 ambulatory [facility] Facility:[facility] Start: 07-01-2024 End: 07-01-[address] Chris Montelongo MD Work Phone: [facility] Work Phone: Start: 07-01-2024 End: 07-01-[address] Jennifer Simental MD -[facility] Work Phone: Start: 07-01-[address] Silviano Simental MD -[facility] Start: 07-01-2024 End: 07-01-[address] Jennifer Simental MD -[facility] Work Phone: Start: 07-01-2024 End: 07-01-[address] [facility] Facility:[facility] Start: 07-01-2024 End: 07-01-2024 ambulatory [facility] Facility:[facility] Start: 06-01-2024 End: 06-01-[address] Jennifer Simental MD -Outpatient Breast Imaging Work Phone: Start: 06-01-2024 End: 06-01-2024 Patient encounter procedure Felicia CEE -[facility] Work Phone: Start: 06-01-2024 End: 06-01-[address] [facility] Facility:[facility] Start: 06-01-2024 End: 06-01-2024 ambulatory [facility] Facility:[facility] Start: 05-24-2024 End: 05-24-[address] Chris Montelongo MD -Sleep Lab Work Phone: Start: 05-24-2024 End: 05-24-[address] [facility] Facility:[facility] Start: 05-13-[address] [facility] Facility:[facility] Start: 05-10-[address] [facility] Facility:[facility] Start: 05-10-2024 Non-patient / Non-visit Dr. Scott Smith MD -[facility] Start: 05-10-2024 End: 05-10-[address] Scott Smith MD -Cardiovascular Services Work Phone: Start: 05-10-2024 End: 05-10-[address] [facility] Facility:[facility] Start: 05-05-2024 End: 05-05-[address] Chris Montelongo MD -[facility] Work Phone: Start: 05-05-2024 End: 05-05-[address] [facility] Facility:[facility] Start: 05-05-2024 End: 05-05-[address] [facility] Facility:[facility] Start: 04-23-[address] [facility] Facili ty:[facility] Start: 04-16-2024 End: 04-16-[address] Scott Smith MD -[facility] Work Phone: Start: 04-16-2024 End: 04-16-2024 ambulatory [facility] Facility:[facility] Start: 04-09-2024 End: 04-09-[address] Carlos Rowe MD -[facility] Work Phone: Start: 04-09-2024 End: 04-09-2024 ambulatory [facility] Facility:[facility] Start: 04-02-2024 End: 04-02-[address] Carlos Rowe MD -[facility] Work Phone: Start: 04-02-2024 End: 04-02-2024 ambulatory [facility] Facility:[facility] Start: 04-01-2024 End: 04-01-[address] Octavia Hector MD -Laboratory Work Phone: Start: 04-01-2024 End: 04-01-2024 ambulatory [facility] Facility:[facility] Start: 03-30-2024 End: 03-30-[address] Carlos Rowe MD -[facility] Work Phone: Start: 03-30-2024 End: 03-30-2024 ambulatory [facility] Facility:[facility] Start: 03-28-2024 End: 03-28-2024 Emergency department patient visit Dr. Jonnie Denson MD -Emergency Department Work Phone: Start: 02-25-2024 End: 02-26-2024 [facility] Start: 02-25-2024 End: 02-25-2024 [facility] Start: 02-19-2024 End: 02-19-2024 ambulatory [facility] Facility:[facility] Start: 02-12-2024 End: 02-12-2024 ambulatory [facility] Facility:[facility] Start: 02-06-2024 End: 02-06-2024 ambulatory [facility] [facility] Start: 01-28-2024 ambulatory Chris Montelongo Facili ty:[facility] Start: 01-28-2024 End: 02-01-2024 Evaluation and management of inpatient Chris Montelongo Facility:[facility] Start: 01-14-2024 End: 01-14-2024 ambulatory [place] [facility] Facility:[facility] Start: 01-08-2024 End: 01-08-2024 [facility] Start: 01-02-2024 End: 01-02-2024 [facility] Start: 11-24-2023 End: 11-24-2023 [facility] Start: 11-21-2023 End: 11-21-2023 [facility] Start: 10-27-2023 End: 10-27-2023 ambulatory [facility] Facility:[facility] Start: 09-12-2023 Telephone encounter Rosio Lagunas MD Work Phone: Cardiology Comment on above: error Start: 07-29-2023 End: 07-29-[address] Chris Montelongo Work Phone: [facility] Work Phone: Start: 07-29-2023 End: 07-29-[address] Chris Montelongo Work Phone: [facility]-Laboratory Work Phone: Start: 07-11-2023 End: 07-11-[address] Chris Montelongo Work Phone: [facility] Work Phone: Start: 07-11-2023 End: 07-11-[address] Chris Montelongo Work Phone: [facility]-Outpatient Breast Imaging Work Phone: Start: 07-10-2023 End: 07-10-2023 Non-patient / Non-visit Dr. Chris Montelongo Work Phone: [facility] Work Phone: Start: 07-10-2023 End: 07-10-[address] Chris Montelongo Work Phone: [facility] Work Phone: Start: 07-10-2023 End: 07-10-[address] Chris Montelongo Work Phone: [facility]-Pulmonary Services/Neurology Work Phone: Start: 07-10-2023 End: 07-10-[address] Chris Montelongo Work Phone: [facility] Work Phone: Start: 07-10-[address] Raquel Montelongo Work Phone: [facility] Oncology Start: 07-02-2023 End: 07-02-[address] Chris Montelongo Work Phone: [facility] Work Phone: Start: 07-02-2023 End: 07-02-[address] Chris Montelongo Work Phone: [facility] Internal Medicine Work Phone: Start: 06-12-2023 Non-patient / Non-visit Dr. Chris Montelongo Work Phone: [facility] Work Phone: Start: 05-27-2023 End: 05-27-[address] Chris Montelongo Work Phone: [facility] Work Phone: Start: 05-27-2023 End: 05-27-[address] Chris Montelongo Work Phone: [facility] Work Phone: Start: 05-27-2023 End: 05-27-[address] Chris Montelongo Work Phone: [facility]-Outpatient Bone Densitometry Work Phone: Start: 04-14-2023 End: 04-14-[address] Chris Montelongo Work Phone: [facility] Work Phone: Start: 04-14-2023 End: 04-14-[address] Chris Montelongo Work Phone: [facility] Radiology Start: 02-26-2023 End: 02-26-[address] Chris Montelongo Work Phone: [facility] Internal Medicine Work Phone: Start: 01-10-2023 End: 01-10-[address] Chris Montelongo Work Phone: [facility] Internal Medicine Work Phone: Start: 01-03-2023 End: 01-03-[address] Chris Montelongo Work Phone: [facility] Work Phone: Start: 01-03-2023 End: 01-03-[address] Chris Montelongo Work Phone: [facility] Work Phone: Start: 01-02-[address] Raquel Montelongo Work Phone: [facility] Start: 01-02-2023 End: 01-02-[address] Chris Montelongo Work Phone: [facility] Work Phone: Start: 11-11-2022 End: 11-11-[address] Chris Montelongo Work Phone: [facility] Work Phone: Start: 11-11-2022 End: 11-11-[address] Chris Montelongo Work Phone: [facility] Work Phone: Start: 10-02-2022 End: 10-02-[address] Chris Montelongo Work Phone: [facility] Internal Medicine Work Phone: Start: 09-26-2022 End: 09-26-[address] Chris Montelongo Work Phone: [facility] Work Phone: Start: 09-26-2022 End: 09-26-[address] Chris Montelongo Work Phone: [facility]-Physical Therapy Start: 09-04-2022 End: 09-04-[address] Chris Montelongo Work Phone: [facility] Start: 07-02-2022 End: 07-02-[address] Chris Montelongo Work Phone: [facility]-Laboratory, Specimen Start: 07-01-2022 End: 07-01-[address] Chris Montelongo Work Phone: [facility] Work Phone: Start: 07-01-2022 End: 07-01-[address] Chris Montelongo Work Phone: [facility] Internal Medicine Start: 06-06-[address] Raquel Montelongo Work Phone: [facility] Oncology Start: 05-29-2022 End: 05-29-[address] Chris Montelongo Work Phone: [facility] Start: 05-21-2022 End: 05-21-[address] Chris Montelongo Work Phone: [facility] Work Phone: Start: 05-21-2022 End: 05-21-[address] Chris Montelongo Work Phone: [facility] Start: 05-09-2022 End: 05-09-[address] Chris Montelongo Work Phone: [facility] Work Phone: Start: 05-09-2022 End: 05-09-[address] Chris Montelongo Work Phone: [facility]-Physical Therapy Start: 05-09-[address] Raquel Montelongo Work Phone: [facility]-Physical Therapy Start: 03-29-2022 End: 03-29-[address] Chris Montelongo Work Phone: [facility] Work Phone: Start: 03-29-2022 End: 03-29-[address] Chris Montelongo Work Phone: [facility] Internal Medicine Start: 02-21-2022 End: 02-21-[address] Chris Montelongo Work Phone: [facility] Work Phone: Start: 02-21-2022 End: 02-21-[address] Chris Montelongo Work Phone: [facility] Start: 01-18-2022 End: 01-18-[address] Chris Montelongo Work Phone: [facility] Start: 12-27-2021 End: 12-27-[address] Chris Montelongo Work Phone: [facility] Work Phone: Start: 12-27-2021 End: 12-27-[address] Chris Montelongo Work Phone: [facility] Start: 12-26-2021 End: 12-26-[address] Chris Montelongo Work Phone: [facility] Work Phone: Start: 12-26-2021 End: 12-26-[address] Chris Montelongo Work Phone: [facility] Start: 12-24-2021 End: 12-24-[address] Chris Montelongo Work Phone: [facility] Internal Medicine Start: 11-15-2021 End: 11-15-[address] Chris Montelongo Work Phone: [facility] Start: 11-15-[address] Raquel Montelongo Work Phone: [facility] Oncology Start: 11-08-2021 End: 11-08-[address] Chris Montelongo Work Phone: [facility] Start: 09-20-2021 End: 09-20-[address] Chris Montelongo Work Phone: [facility] Internal Medicine Start: 09-20-2021 End: 09-20-[address] Chris Montelongo Work Phone: [facility] Radiology Start: 09-20-2021 End: 09-20-[address] Chris Montelongo Work Phone: [facility] Orthopaedic Specia Start: 03-02-[address] Chris Montelongo Work Phone: [facility] Start: 06-19-2020 End: 06-19-2020 Subsequent hospital visit by physician Sergo Yost Work Phone: Lab Non-Patient Procedures Date Procedure Procedure Detail Performing Clinician Start: 07-05-[address] Raquel Montelongo MD Work Phone: Start: 07-05-2024 Urnls dip stick/tabl et reagent auto microscopy Dr. Chris Montelongo MD Work Phone: Start: 07-01-2024 MRI of brain with contrast Dr. Chris Montelongo MD Work Phone: Start: 06-01-2024 Screening mammograph y of right breast Dr. Chris Montelongo MD Work Phone: Start: 06-01-[address] Burak Montelongo MD Work Phone: Start: 03-30-2024 Plain x-ray of hand Dr. Chris Montelongo MD Work Phone: Start: 01-08-[address] Chris Montelongo MD Work Phone: Start: 01-08-2024 Measurement of renal function Dr. Chris Montelongo MD Work Phone: Comment on above: GFR Calc Start: 07-11-[address] Chris Montelongo Work Phone: Start: 05-27-[address] Burak Montelongo Work Phone: Start: 05-27-2023 End: 05-27-2023 Dual energy X-ray absorptiometry Dr. Chris Montelongo Work Phone: Start: 05-27-2023 Screening mammograph y of right breast Dr. Chris Montelongo Work Phone: Start: 04-14-2023 Pelvis X-ray Dr. Burak Montelongo Work Phone: Start: 01-03-2023 MRI of brain with contrast Dr. Chris Montelongo Work Phone: Start: 11-11-2022 MRI of bilateral hilda asts with contrast Dr. Chris Montelongo Work Phone: Start: 05-21-[address] Burak Montelongo Work Phone: Start: 05-21-2022 Screening mammograph y of right breast Dr. Chris Montelongo Work Phone: Start: 02-21-2022 Plain x-ray of humerus Dr. Chris Montelongo Work Phone: Start: 02-21-2022 Plain X-ray of shoulder Dr. Chris Montelongo Work Phone: Start: 11-08-2021 MRI of bilateral hilda asts with contrast Dr. Chris Montelongo Work Phone: Start: 09-20-2021 Radiologic examinati on of knee Dr. Chris Montelongo Work Phone: Clostridium difficil e detection Dr. Chris Montelongo Work Phone: History of cholecystectomy S/P laparoscopic cholecystectomy Dr. Chris Montelongo MD Work Phone: Plan of Treatment Date Care Activity Detail Author Start: 08-02-2024 Patient referral [facility] Work Phone: Start: 03-28-2024 Smpl repair scalp/neck/ax/genit/trunk 2.6-7.5cm RPR S/N/AX/GEN/TRNK2.6-7.5CM [facility] Start: 12-28-2023 Influenza vaccination Influenza Vaccine (Season Ended) [facility] Start: 04-28-2023 Advance Directive Discussion Advance Directive Discussion [facility] Start: 04-28-2023 Behavioral Health Screening Behavioral Health Screening [facility] Start: 12-27-2022 Covid-19 Vaccine ( season) Covid-19 Vaccine ( season) [facility] Start: 07-02-2022 Clostridioides difficile DNA [Presence] in Unspecified specimen by [place] with probe detection [facility] Start: 07-01-2022 Patient referral [facility] Work Phone: Start: 03-29-2022 Patient referral [facility] Work Phone: Start: 09-20-2021 Patient referral [facility] Work Phone: Start: 09-29-2019 Pneumococcal Vaccine: 65+ (1 of 1 - PCV) Pneumococcal Vaccine: 65+ (1 of 1 - PCV) [facility] Start: 09-29-2019 Screening for osteoporosis Bone Density Screening [facility] Start: 2014 RSV Vaccine (1 - 1-dose 60+ series) RSV Vaccine (1 - 1-dose 60+ series) [facility] Start: 2004 Shingrix Vaccine (1 of 2) Shingrix Vaccine (1 of 2) [facility] Start: 09-29-1999 Diabetes Screening Diabetes Screening [facility] Start: 09-29-1999 Lipid panel Lipid Screening [facility] Start: 09-29-1999 Screening for malignant neoplasm of colon [facility] Start: 1994 Screening for malignant neoplasm of breast Mammogram Screening [facility] Start: 1973 Hepatitis B (1 of 3 - Risk 3-dose series) Hepatitis B (1 of 3 - Risk 3-dose series) [facility] Start: 1973 Urine microalbumin profile DTaP,Tdap,Td Vaccine (1 - Tdap) [facility] Start: 1972 Hepatitis C screening Hepatitis C Screening [facility] Start: 1970 COVID-19 (1) COVID-19 (1) [facility] Start: 1970 MenB (1 of 2 - MenB 2-Dose Series) MenB (1 of 2 - MenB 2-Dose Series) [facility] Start: 1961 Tetanus Diphtheria and Pertussis Vaccines (1 - Tdap) Tetanus Diphtheria and Pertussis Vaccines (1 - Tdap) [facility] Start: 09-29-1955 Hepatitis A (1 of 2 - Risk 2-dose series) [facility] Start: 09-29-1955 MMR (1 of 1 - Standard series) MMR (1 of 1 - Standard series) [facility] Start: 09-29-1955 Varicella (1 of 2 - 2-dose childhood series) Varicella (1 of 2 - 2-dose childhood series) [facility] C. difficile DNA Amplification C. difficile DNA Amplification [facility] CBC W Auto Different ial panel - Blood [facility] CT angiography of coronary arteries [facility] DXA Bone [Mass/Area] Bone density [facility] Fat [Mass/mass] in [facility] Work Phone: Fat.neutral [Presenc e] in Stool [facility] Work Phone: MG Breast - bilatera l Screening [facility] MG Breast - right Screening [facility] Work Phone: MG Breast Diagnostic [facility] Patient Education ED Animal Bite (General ) [facility] Work Phone: Patient referral [facility] Work Phone: XR Spine Lumbar and Sacrum GE 4 Views [facility] Work Phone: XR Spine Lumbar and Sacrum GE 4 Views [facility] Immunizations Immunization Date Immunization Notes Care Provider Julio huitron 05-05-2024 Seasonal trivalent influenza vaccine, adjuvanted, preservative free Dr. Chris Montelongo MD Work Phone: [facility] 03-28-2024 tetanus toxoid, redu chris diphtheria toxoid, and acellular pertussis vaccine, adsorbed Dr. Chris Montelongo MD Work Phone: [facility] 03-02-2021 pneumococcal conjuga te vaccine, [address] Chris Montelongo Work Phone: [facility] 08-01-2020 Covid (Pfizer) Dr. Chris Montelongo Work Phone: [facility] 07-11-2020 Covid (Pfizer) Dr. Chris Montelongo Work Phone: [facility] 03-02-[address] Chris Montelongo Work Phone: [facility] 03-02-2020 pneumococcal polysaccharide vaccine, [address] Chris Montelongo Work Phone: [facility] 03-10-2019 influenza, injectabl e, quadrivalent, contains preservative Rosio Lagunas MD Work Phone: [facility] 03-10-2019 influenza, injectabl e, quadrivalent, preservative free Dr. Chris Montelongo MD Work Phone: [facility] 03-10-2019 influenza virus vacc ine, unspecified formulation Rosio Lagunas MD Work Phone: [facility] 03-11-2018 influenza, injectabl e, quadrivalent, contains preservative Rosio Lagunas MD Work Phone: [facility] 03-11-2018 influenza, injectabl e, quadrivalent, preservative free Dr. Chris Montelongo MD Work Phone: [facility] 02-15-2009 novel influenza-H1N1 -09, preservative-free, injectable Dr. Chris Montelongo MD Work Phone: [facility] Payers Date Payer Category Payer Medicare [id number] 2020 Self-pay [phone] [id number] 2019 Medicare MEDICARE MEDICAR E PART A AND B [id number] 2019-Present [address] [place] [address] [id number] 2015 Unknown ANTHEM ANTHEM BC BS PPO [id number] 2015-Present [address] [place] [address] [id number] 2015 Unknown [id number] 2015 Unknown ANTHEM BLUE CARD TRADITIONAL OOS [id number] 2015-Present [phone] [address] [place] [address] Indemnity [id number] Unknown [id number] 2.16.840.1.242996.3.579.2.46 2 Unknown [id number] 2.16.840.1.945006.3.579.2.46 2 Unknown [id number] 2.16.840.1.431325.3.579.2.46 2 Unknown [id number] 2.16.840.1.816750.3.579.2.46 2 Unknown [id number] 2.16.840.1.781856.3.579.2.46 2 Unknown [id number] 2.16.840.1.034990.3.579.2.46 2 Unknown [id number] 2.16.840.1.419859.3.579.2.46 2 Unknown [id number] 2.16.840.1.538414.3.579.2.46 2 Unknown [id number] 2.16.840.1.378108.3.579.2.46 2 Unknown [id number] 2.16.840.1.706789.3.579.2.46 2 Unknown [id number] 2.16.840.1.065492.3.579.2.46 2 Unknown [id number] 2.16.840.1.428955.3.579.2.46 2 Unknown [id number] 2.16.840.1.934517.3.579.2.46 2 Unknown [id number] 2.16.840.1.017960.3.579.2.46 2 Unknown [id number] 2.16.840.1.816714.3.579.2.46 2 Unknown [id number] 2.16.840.1.044785.3.579.2.46 2 Unknown [id number] 2.16.840.1.125435.3.579.2.46 2 Unknown [id number] 2.16.840.1.590713.3.579.2.46 2 Unknown [id number] 2.16.840.1.025682.3.579.2.46 2 Unknown [id number] 2.16.840.1.060138.3.579.2.46 2 Unknown [id number] 2.16.840.1.637544.3.579.2.46 2 Unknown [id number] 2.16.840.1.096914.3.579.2.46 2 Unknown [id number] 2.16.840.1.199471.3.579.2.46 2 Unknown [id number] 2.16.840.1.708483.3.579.2.46 2 Unknown [id number] 2.16.840.1.697052.3.579.2.46 2 Unknown [id number] 2.16.840.1.143208.3.579.2.46 2 Unknown [id number] 2.16.840.1.042545.3.579.2.46 2 Unknown [id number] 2.16.840.1.344292.3.579.2.46 2 Unknown [id number] 2.16.840.1.068204.3.579.2.46 2 Unknown [id number] 2.16.840.1.796012.3.579.2.46 2 Unknown [id number] 2.16.840.1.129266.3.579.2.46 2 Unknown [id number] 2.16.840.1.910863.3.579.2.46 2 Unknown [id number] 2.16.840.1.579283.3.579.2.46 2 Unknown [id number] 2.16.840.1.460299.3.579.2.46 2 Unknown [id number] 2.16.840.1.101636.3.579.2.46 2 Unknown [id number] 2.16.840.1.874360.3.579.2.46 2 Unknown [id number] 2.16.840.1.590423.3.579.2.46 2 Unknown [id number] 2.16.840.1.199473.3.579.2.46 2 Unknown [id number] 2.16.840.1.918909.3.579.2.46 2 Unknown [id number] 2.16.840.1.294085.3.579.2.46 2 Unknown [id number] 2.16.840.1.782988.3.579.2.46 2 Unknown [id number] 2.16.840.1.877634.3.579.2.46 2 Social History Date Type Detail Facility Start: 06-12-2020 End: 06-01-2024 Tobacco smoking status NHIS Former smoker [facility] Start: 06-12-2020 Tobacco use and exposure Never used [facility] Start: 06-09-2020 Tobacco Comment over 20 years ago [facility] Start: 1955 Sex Assigned At Not on file A [facility] Start: 12-24-2021 End: 07-02-2023 Tobacco smoking status NHIS Unknown if ever smoked [facility] Start: 08-24-2020 Non-smoker [facility] Start: 1955 Sex Assigned At Female W [facility] Gender identity Not on file [facility] Start: 07-13-2024 End: 07-15-2024 Sex Female (finding) [facility] Medical Equipment Procedure Code Equipment Code Equipment Original Text Equipment Identifier Dates Total cholecystectomy with exploration of common bile duct DRESSING,FIBRILLA R 1X2 1960 FDA Start: 01-29-2024 Total cholecystectomy with exploration of common bile duct 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 [id number] FDA Start: 01-29-2024 Total cholecystectomy with exploration of common bile duct DRESSING,FIBRILLA R [id number] FDA Start: 01-29-2024 Total cholecystectomy with exploration of common bile duct DRESSING,FIBRILLA R 1X2 1960 FDA Start: 01-29-2024 SUTURE,LIGA CLIP MED LT200 FDA Start: 06-12-2020 SUTURE,LIGA CLIP MED LT200 FDA Start: 06-12-2020 SUTURE,LIGA CLIP MED LT200 FDA Start: 06-12-2020 SUTURE,LIGA CLIP MED LT200 FDA Start: 06-12-2020 SUTURE,LIGA CLIP SM LT-100 FDA Start: 06-12-2020 SUTURE,LIGA CLIP SM LT-100 FDA Start: 06-12-2020 SUTURE,LIGA CLIP MED LT200 FDA Start: 06-12-2020 SUTURE,LIGA CLIP MED LT200 FDA Start: 06-12-2020 SUTURE,LIGA CLIP MED LT200 FDA Start: 06-12-2020 SUTURE,LIGA CLIP MED LT200 FDA Start: 06-12-2020 SUTURE,LIGA CLIP SM LT-100 FDA Start: 06-12-2020 SUTURE,LIGA CLIP SM LT-100 FDA Start: 06-12-2020 SUTURE,LIGA CLIP MED LT200 FDA Start: 06-12-2020 SUTURE,LIGA CLIP MED LT200 FDA Start: 06-12-2020 SUTURE,LIGA CLIP MED LT200 FDA Start: 06-12-2020 SUTURE,LIGA CLIP MED LT200 FDA Start: 06-12-2020 SUTURE,LIGA CLIP SM LT-100 FDA Start: 06-12-2020 SUTURE,LIGA CLIP SM LT-100 FDA Start: 06-12-2020 SUTURE,LIGA CLIP MED LT200 FDA Start: 06-12-2020 SUTURE,LIGA CLIP MED LT200 FDA Start: 06-12-2020 SUTURE,LIGA CLIP MED LT200 FDA Start: 06-12-2020 SUTURE,LIGA CLIP MED LT200 FDA Start: 06-12-2020 SUTURE,LIGA CLIP SM LT-100 FDA Start: 06-12-2020 SUTURE,LIGA CLIP SM LT-100 FDA Start: 06-12-2020 SUTURE,LIGA CLIP MED LT200 FDA Start: 06-12-2020 SUTURE,LIGA CLIP MED LT200 FDA Start: 06-12-2020 SUTURE,LIGA CLIP MED LT200 FDA Start: 06-12-2020 SUTURE,LIGA CLIP MED LT200 FDA Start: 06-12-2020 SUTURE,LIGA CLIP SM LT-100 FDA Start: 06-12-2020 SUTURE,LIGA CLIP SM LT-100 FDA Start: 06-12-2020 SUTURE,LIGA CLIP MED LT200 FDA Start: 06-12-2020 SUTURE,LIGA CLIP MED LT200 FDA Start: 06-12-2020 SUTURE,LIGA CLIP MED LT200 FDA Start: 06-12-2020 SUTURE,LIGA CLIP MED LT200 FDA Start: 06-12-2020 SUTURE,LIGA CLIP SM LT-100 FDA Start: 06-12-2020 SUTURE,LIGA CLIP SM LT-100 FDA Start: 06-12-2020 SUTURE,LIGA CLIP MED LT200 FDA Start: 06-12-2020 SUTURE,LIGA CLIP MED LT200 FDA Start: 06-12-2020 SUTURE,LIGA CLIP MED LT200 FDA Start: 06-12-2020 SUTURE,LIGA CLIP MED LT200 FDA Start: 06-12-2020 SUTURE,LIGA CLIP SM LT-100 FDA Start: 06-12-2020 SUTURE,LIGA CLIP SM LT-100 FDA Start: 06-12-2020 SUTURE,LIGA CLIP MED LT200 FDA Start: 06-12-2020 SUTURE,LIGA CLIP MED LT200 FDA Start: 06-12-2020 SUTURE,LIGA CLIP MED LT200 FDA Start: 06-12-2020 SUTURE,LIGA CLIP MED LT200 FDA Start: 06-12-2020 SUTURE,LIGA CLIP SM LT-100 FDA Start: 06-12-2020 SUTURE,LIGA CLIP SM LT-100 FDA Start: 06-12-2020 SUTURE,LIGA CLIP MED LT200 FDA Start: 06-12-2020 SUTURE,LIGA CLIP MED LT200 FDA Start: 06-12-2020 SUTURE,LIGA CLIP MED LT200 FDA Start: 06-12-2020 SUTURE,LIGA CLIP MED LT200 FDA Start: 06-12-2020 SUTURE,LIGA CLIP SM LT-100 FDA Start: 06-12-2020 SUTURE,LIGA CLIP SM LT-100 FDA Start: 06-12-2020 SUTURE,LIGA CLIP MED LT200 FDA Start: 06-12-2020 SUTURE,LIGA CLIP MED LT200 FDA Start: 06-12-2020 SUTURE,LIGA CLIP MED LT200 FDA Start: 06-12-2020 SUTURE,LIGA CLIP MED LT200 FDA Start: 06-12-2020 SUTURE,LIGA CLIP SM LT-100 FDA Start: 06-12-2020 SUTURE,LIGA CLIP SM LT-100 FDA Start: 06-12-2020 SUTURE,LIGA CLIP MED LT200 FDA Start: 06-12-2020 SUTURE,LIGA CLIP MED LT200 FDA Start: 06-12-2020 SUTURE,LIGA CLIP MED LT200 FDA Start: 06-12-2020 SUTURE,LIGA CLIP MED LT200 FDA Start: 06-12-2020 SUTURE,LIGA CLIP SM LT-100 FDA Start: 06-12-2020 SUTURE,LIGA CLIP SM LT-100 FDA Start: 06-12-2020 SUTURE,LIGA CLIP MED LT200 FDA Start: 06-12-2020 SUTURE,LIGA CLIP MED LT200 FDA Start: 06-12-2020 SUTURE,LIGA CLIP MED LT200 FDA Start: 06-12-2020 SUTURE,LIGA CLIP MED LT200 FDA Start: 06-12-2020 SUTURE,LIGA CLIP SM LT-100 FDA Start: 06-12-2020 SUTURE,LIGA CLIP SM LT-100 FDA Start: 06-12-2020 SUTURE,LIGA CLIP MED LT200 FDA Start: 06-12-2020 SUTURE,LIGA CLIP MED LT200 FDA Start: 06-12-2020 SUTURE,LIGA CLIP MED LT200 FDA Start: 06-12-2020 SUTURE,LIGA CLIP MED LT200 FDA Start: 06-12-2020 SUTURE,LIGA CLIP SM LT-100 FDA Start: 06-12-2020 SUTURE,LIGA CLIP SM LT-100 FDA Start: 06-12-2020 SUTURE,LIGA CLIP MED LT200 FDA Start: 06-12-2020 SUTURE,LIGA CLIP MED LT200 FDA Start: 06-12-2020 SUTURE,LIGA CLIP MED LT200 FDA Start: 06-12-2020 SUTURE,LIGA CLIP MED LT200 FDA Start: 06-12-2020 SUTURE,LIGA CLIP SM LT-100 FDA Start: 06-12-2020 SUTURE,LIGA CLIP SM LT-100 FDA Start: 06-12-2020 SUTURE,LIGA CLIP MED LT200 FDA Start: 06-12-2020 SUTURE,LIGA CLIP MED LT200 FDA Start: 06-12-2020 SUTURE,LIGA CLIP MED LT200 FDA Start: 06-12-2020 SUTURE,LIGA CLIP MED LT200 FDA Start: 06-12-2020 SUTURE,LIGA CLIP SM LT-100 FDA Start: 06-12-2020 SUTURE,LIGA CLIP SM LT-100 FDA Start: 06-12-2020 SUTURE,LIGA CLIP MED LT200 FDA Start: 06-12-2020 SUTURE,LIGA CLIP MED LT200 FDA Start: 06-12-2020 SUTURE,LIGA CLIP MED LT200 FDA Start: 06-12-2020 SUTURE,LIGA CLIP MED LT200 FDA Start: 06-12-2020 SUTURE,LIGA CLIP SM LT-100 FDA Start: 06-12-2020 SUTURE,LIGA CLIP SM LT-100 FDA Start: 06-12-2020 SUTURE,LIGA CLIP MED LT200 FDA Start: 06-12-2020 SUTURE,LIGA CLIP MED LT200 FDA Start: 06-12-2020 SUTURE,LIGA CLIP MED LT200 FDA Start: 06-12-2020 SUTURE,LIGA CLIP MED LT200 FDA Start: 06-12-2020 SUTURE,LIGA CLIP SM LT-100 FDA Start: 06-12-2020 SUTURE,LIGA CLIP SM LT-100 FDA Start: 06-12-2020 SUTURE,LIGA CLIP MED LT200 FDA Start: 06-12-2020 SUTURE,LIGA CLIP MED LT200 FDA Start: 06-12-2020 SUTURE,LIGA CLIP MED LT200 FDA Start: 06-12-2020 SUTURE,LIGA CLIP MED LT200 FDA Start: 06-12-2020 SUTURE,LIGA CLIP SM LT-100 FDA Start: 06-12-2020 SUTURE,LIGA CLIP SM LT-100 FDA Start: 06-12-2020 SUTURE,LIGA CLIP MED LT200 FDA Start: 06-12-2020 SUTURE,LIGA CLIP MED LT200 FDA Start: 06-12-2020 SUTURE,LIGA CLIP MED LT200 FDA Start: 06-12-2020 SUTURE,LIGA CLIP MED LT200 FDA Start: 06-12-2020 SUTURE,LIGA CLIP SM LT-100 FDA Start: 06-12-2020 SUTURE,LIGA CLIP SM LT-100 FDA Start: 06-12-2020 Goals Date Patient Goal Desired Activity /State Personal health goal Mental Status Date Assessment Result Facility 07-01-2024 Cognitive function Awake;Alert;A ppropriate;Fol lows Commands [facility] Work Phone: 07-10-2023 Cognitive function Awake;Alert;A ppropriate;Fol lows Commands [facility] Work Phone: 01-02-2023 Cognitive function Awake;Alert;A ppropriate;Fol lows Commands [facility] Work Phone: 06-06-2022 Cognitive function Voice/Name [facility] Work Phone: 11-15-2021 Cognitive function Awake;Alert;A ppropriate;Fol lows Commands [facility] Work Phone: Clinical Notes 07-08-2022 to 07-01-2024 Note Date & Type Note Facility 07-01-2024 Evaluation note Diagnosis Onset Date Resolution Cancer of left female breast chronic July 01, 2024 1:56pm Osteoporosis chronic July 01 025 1:56pm Encounter for education acute M 2024 2:30pm Headache acute July 01 2:30pm Cancer of left female breast chronic July 01, 2024 2:30pm Osteoporosis chronic March 6th, 2 025 2:30pm Nausea inactive July 01 2:30pm Burning with urination acute Ap ril 2024 10:58am Essential hypertension chronic Ap ril 2024 10:58am Hyperlipidemia chronic August 02, 2024 10:58am Obesity chronic August 02 10:58am Obstructive sleep apnea chronic A pril 2024 10:58am [facility] Work Phone: 1(675) 929-567312-03-2024 Evaluation note* Diagnosis Onset Date Resolution Status Admit Date Dog bite of multiple sites o f left hand and fingers inactive March 302023 10:44am Laceration of left hand involving extensor tendon inactive Decemb er 2023 12:59pm Laceration of left hand involving extensor tendon inactive Decemb er 2023 1:42pm Cancer of left female breast chronic April 16, 2024 10:57am Essential hypertension chronic De cember 2023 10:57am Hyperlipidemia chronic March 292023 10:57am Chills acute May 05 10:44am Flu vaccine need acute May 05, 2024 10:44am History of breast cancer acute May 05, 2024 10:44am Essential hypertension chronic Ja nuary 2024 10:44am Hyperlipidemia chronic April 10:44am Obstructive sleep apnea chronic J anuary 2024 10:44am Encounter for screening for malignant neoplasm of lung acute Febru fernando 2024 12:30pm History of tobacco use acute Fe bruary 2024 12:30pm Cancer of left female breast chronic July 01, 2024 1:56pm Osteoporosis chronic July 01 025 1:56pm Encounter for education acute M arch 2024 2:30pm Headache acute July 01 2:30pm Cancer of left female breast chronic July 01, 2024 2:30pm Osteoporosis chronic July 01 2 025 2:30pm Nausea inactive July 01 2:30pm [facility] Work Phone: 1(832) 579-727010-06-2024 [facility]10-02-2024 [facility]05-17-2024 Telephone encounter Note* Telephone Encounter - Jaclyn Pan - 09/12/2023 12:36 PM EDT Pt calls into Dr. Lagunas's office -- No records/encounters associated to pt in chart -- Pt states thecall was an accident and call ended --- Jaclyn Pan [employer]eting [employer]er II [facility]05-17-2024 Miscellaneous Notes* Telephone Encounter - Jaclyn Pan - 09/12/2023 12:36 PM EDT Pt calls into Dr. Lagunas's office -- No records/encounters associated to pt in chart -- Pt states thecall was an accident and call ended --- Jaclyn Pan [facility] [employer] Discharge summary Author Blayne Benito [facility] September 26, 2022 11:15am Note Date/Time September 26, 2022 11:15 am [facility] [address] [place] [address]. [address] [place] [id number] / REHABILITATION SERVICES DISCHARGE SUMMARY MR#: [id number] Acct: [id number] Name: KIEL ENGLISH Rep #: [id number] : 1955 66 From: Blayne Benito DPT, OCS, CSCS Referring DrMarie: Status: REG RCR Insurance: MEDICARE PART A B ANTHEM It has been my pleasure to treat KIEL ENGLISH referred by JENNIFER POLLACK, with the diagnosis of L shoulder scope s/p 07/17/22 Annalise ritterford for a total of 5 visit(s). Discharge Date: 09/26/22 Please see the following information for a summary of their discharge status. 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 Had been good up to that point. Was doing wonderful and exercise going well. Yesterday was 6/10 much of day mostly with movement. L shoulder upper arm. Pain Intensity (Out of 10): 1 % Improvement: 80 Objective/Function: 148 flexion 150 abduction L. 55 ext rotation and L1 IR. sore to move it today. strtength is 4in flexiona dn abduction adn 4+ IR and biceps and 4- er. Goal 1:: 150 arom flexion, abduction and 75 er without pain to make ADLs easier Goal Progress: Progressing Goal 2:: patient do hair behind head without noticing pain Goal Progress: Goal Met Goal 3:: Reach overhead to cupboards easily Goal Progress: Goal Met Goal 4:: yard work back to normal Goal Progress: Goal Met, sore Goal 5:: I appropirate HEP to minimize future problems Goal Progress: Goal Met Goal 6:: quick dash score 15 or better Goal Progress: Progressing Plan: d/c to HEP, pt to avoid overactivity like Friday as much as possible and recommended extension pole on roller if needs to pain more. If there are questions or concerns regarding this patient's physical therapy, please feel free to call me at [phone]. Thank you for the referral of thispatient. Sincerely, Blayne Benito DPT, OCS, CSCS Balance/Gait/Functional tests - Balance/Special Test Scores Quick DASH Score: 22.7250 <Electronically signed by Blayne Benito DPT, JOEY, CSCS> 09/26/22 1115 CC: Dr. Chris Montelongo MD; JENNIFER POLLACK ~ EBG Signed [facility] Work Phone: 1(391) 303-731503-13-2023 Discharge summary Author Blayne Benito [facility] July 08, 2022 8:34am Note Date/Time July 08, 2022 8:3 4am [facility] [address] [place] [address] [address] [place] [address] / REHABILITATION SERVICES DISCHARGE SUMMARY MR#: [id number] Acct: [id number] Name: KIEL ENGLISH Rep #: [id number] : 1955 66 From: Blayne Benito DPT, OCS, CSCS Referring Dr.: Dr. Chris Montelongo MD Status : REG RCR Insurance: MEDICARE PART A B ELIO KIEL ENGLISH was seen in my office for initial evaluation on 04/04/22. The following Plan of Care was established for this patient: Initial Frequency: 2x /Week Initial Duration: 4-6 Weeks Patient/Client Instruction: Educate patient on: Condition, Plan of Care For the Purpose of:: To decrease pain, To increase ROM, To improve muscle performance and motor function, To increase tolerance to activity/condition/position, To improve ability of physical actions for home/community/work/leisure Therapeutic Exercise to Include: Strength training, Postural training, Flexibilty training, Passive ROM, Active ROM For the Purpose of:: To decrease pain, To increase ROM, To improve nutrient delivery to tissue, To improve muscle performance and motor function, To increase tolerance to activity/condition/position, To improve ability of physical actions for home/community/work/leisure Manual Therapy Techniques to Include: Mobilization, Passive ROM, Soft tissue mobilization For the Purpose of:: To decrease pain, To increase ROM, To improve nutrient delivery to tissue, To improve muscle performance and motor function Cryotherapy (ice pack, ice massage): Yes For the Purpose of:: To decrease pain, To decrease swelling/inflammation This patient was last seen in our office 05/09/22. Pertinent comments regardingtheir Physical therapy will appear below: Pt seen 7 visits and was 505 better. she did not attend her final scheduled visit. At this point, it has been over 6 weeks and i will discontinue due to nonattendance. At this point I will be discontinuing this patient from physical therapy. I would be happy to see this patient again in the future if found appropriate by the physician. Thank you! Blayne Benito, WU, OCS, CSCS Balance/Gait/Functional tests - Balance/Special Test Scores Quick DASH Score: 59.0900 <Electronically signed by Blayne Benito DPT, OCS, CSCS> 07/08/22 0834 CC: Dr. 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 Cancer of left female breast acute Encounter for education acut e Osteoporosis chronic Cancer of left female breast acute Osteoporosis chronic Chronic diarrhea chronic CKD (chronic kidney disease) chronic Dry skin dermatitis chronic Essential hypertension chron ic [facility] Work Phone: Evaluation note* Diagnosis Onset Date Resolution Status Cancer of left female breast acute Encounter for education acut e Osteoporosis chronic Cancer of left female breast acute Osteoporosis chronic Chronic diarrhea chronic CKD (chronic kidney disease) chronic Dry skin dermatitis chronic Essential hypertension chron ic Cancer of left female breast acute Osteoporosis chronic [facility] Work Phone: Evaluation note* Diagnosis Onset Date Resolution Status Chronic diarrhea chronic CKD (chronic kidney disease) chronic Dry skin dermatitis chronic Essential hypertension chron ic Cancer of left female breast acute Osteoporosis chronic Microscopic colitis acute Essential hypertension chron ic Left shoulder pain chronic Lumbar radiculopathy chronic [facility] Work Phone: Evaluation note* Diagnosis Onset Date Resolution Status Cancer of left female breast chronic Osteoporosis chronic Microscopic colitis acute Essential hypertension chron ic Left shoulder pain chronic Lumbar radiculopathy chronic Encounter for screening for malignant neoplasm of lung acute History of tobacco use acute Cancer of left female breast chronic Osteoporosis chronic [facility] Work Phone: Evaluation note* Diagnosis Onset Date Resolution Status Microscopic colitis acute Essential hypertension chron ic Left shoulder pain chronic Lumbar radiculopathy chronic Encounter for screening for malignant neoplasm of lung acute History of tobacco use acute Cancer of left female breast chronic Osteoporosis chronic Encounter for education acut e Cancer of left female breast chronic Osteoporosis chronic Diarrhea acute Anxiety chronic Essential hypertension chron ic Left shoulder pain chronic [facility] Work Phone: Evaluation note* Diagnosis Onset Date Resolution Status Encounter for education acut e Cancer of left female breast chronic Osteoporosis chronic Diarrhea acute Anxiety chronic Essential hypertension chron ic Left shoulder pain chronic Cancer of left female breast chronic Osteoporosis chronic [facility] Work Phone: Evaluation note* Diagnosis Onset Date Resolution Status Cancer of left female breast chronic Osteoporosis chronic Dermatitis acute Diarrhea acute Ear ache acute Essential hypertension chron ic [facility] Work Phone: Evaluation note* Diagnosis Onset Date Resolution Status Dermatitis acute Diarrhea acute Ear ache acute Essential hypertension chron ic Cancer of left female breast chronic Osteoporosis chronic Encounter for education acut e Headache acute Cancer of left female breast chronic Osteoporosis chronic Anxiety chronic Essential hypertension chron ic Migraine chronic [facility] Work Phone: Evaluation note* Diagnosis Onset Date Resolution Status Cancer of left female breast chronic Osteoporosis chronic Encounter for education acut e Headache acute Cancer of left female breast chronic Osteoporosis chronic Anxiety chronic Essential hypertension chron ic Migraine chronic Gastritis acute CKD (chronic kidney disease) chronic Essential hypertension chron ic Lumbar radiculopathy chronic Migraine chronic [facility] Work Phone: Evaluation note* Diagnosis Onset Date Resolution Status Gastritis acute CKD (chronic kidney disease) chronic Essential hypertension chron ic Lumbar radiculopathy chronic Migraine chronic Encounter for screening for malignant neoplasm of lung acute History of tobacco use acute [facility] Work Phone: Evaluation note* Diagnosis Onset Date Resolution Status Encounter for screening for malignant neoplasm of lung acute History of tobacco use acute Gastritis acute CKD (chronic kidney disease) chronic Essential hypertension chron ic Hyperlipidemia chronic Migraine chronic [facility] Work Phone: Evaluation note* Diagnosis Onset Date Resolution Status Encounter for screening for malignant neoplasm of lung acute History of tobacco use acute Gastritis acute CKD (chronic kidney disease) chronic Essential hypertension chron ic Hyperlipidemia chronic Migraine chronic Encounter for education acut e Headache acute Cancer of left female breast chronic Osteoporosis chronic Breast pain, right acute Palpitation acute Cancer of left female breast chronic Osteoporosis chronic [facility] Work Phone: Reason for referral (narrative)No reason for referral information [facility] Work [facility]: Advance Directives No Advanced Directives Records FoundDocuments on File Type Date Recorded Patient Special Education Para Professional Expl anation Power of Wax Molder Advance Directive Response Recorded Date/ Time Advance Directives No May 31, 2020 4:55pm Living Will No August 24, 2020 1:40pm Power of Wax Molder No August 24 1:40pm Advance Directive Response Recorded Date/ Time Advance Directives No May 31, 2020 3:55pm Living Will No August 24, 2020 12:40pm Power of Wax Molder No August 24 12:40pm Advance Directive Response Recorded Date/ Time Living Will No August 24, 2020 1:40pm Power of Wax Molder No August 24 1:40pm Advance Directives No March 29, 2024 10:09am Living Will No March 28 4:24pm Power of Wax Molder No March 28, 2024 4:24pm Advance Directive Response Recorded Date/ Time Living Will No August 24, 2020 1:40pm Do you have a Healthcare Power of Wax Molder? No August 24, 2020 1:40pm Advance Directives No March 29, 2024 10:09am Living Will No March 28 4:24pm Do you have a Healthcare Power of Wax Molder? No March 28, 2024 4:24pm Advance Directive Response Recorded Date/ Time Living Will No August 24, 2020 1:40pm Do you have a Healthcare Power of Wax Molder? No August 24, 2020 1:40pm Advance Directives No March 29, 2024 10:09am Chief Complaint and Reason for Visit Chief Complaint RIGHT KNEE xray Follow up BREAST CANCER ONC/HEME 3 MO - LABS - PROLIA 3 M FU CELIAC PROFILE STOOL DROPOFF- DIARRHEA Reason for Visit Bilateral primary os teoarthritis of knee Chronic diarrhea Essential hypertension Obstructive sleep apnea Cancer of left female breast Encounter for education Osteoporosis Cancer of left female breast Osteoporosis Chronic diarrhea CKD (chronic kidney disease) Dry skin dermatitis Essential hypertension Chief Complaint BREAST CANCER ONC/HEME 3 MO - LABS - PROLIA 3 M FU CELIAC PROFILE STOOL DROPOFF- DIARRHEA 3 MO - NO LABS eorders Reason for Visit Cancer of left femal e breast Encounter for education Osteoporosis Cancer of left female breast Osteoporosis Chronic diarrhea CKD (chronic kidney disease) Dry skin dermatitis Essential hypertension Cancer of left female breast Osteoporosis Chief Complaint 3 M FU CELIAC PROFILE STOOL DROPOFF- DIARRHEA 3 MO - NO LABS eorders 3 M FU Reason for Visit Chronic diarrhea CKD (chronic kidney disease) Dry skin dermatitis Essential hypertension Cancer of left female breast Osteoporosis Microscopic colitis Essential hypertension Left shoulder pain Lumbar radiculopathy Chief Complaint 3 MO - NO LABS eorders 3 M FU L SHOULDER PAIN/RX HERE SCREENING Lung cancer screening 3 MO - NO LABS - REVIEW MAMM Reason for Visit Cancer of left femal e breast Osteoporosis Microscopic colitis Essential hypertension Left shoulder pain Lumbar radiculopathy Encounter for screening for malignant neoplasm of lung History of tobacco use Cancer of left female breast Osteoporosis Chief Complaint 3 M FU L SHOULDER PAIN/RX HERE SCREENING Lung cancer screening 3 MO - NO LABS - REVIEW MAMM prolia 3 M FU Reason for Visit Microscopic colitis Essential hypertension Left shoulder pain Lumbar radiculopathy Encounter for screening for malignant neoplasm of lung History of tobacco use Cancer of left female breast Osteoporosis Encounter for education Cancer of left female breast Osteoporosis Diarrhea Anxiety Essential hypertension Left shoulder pain Chief Complaint prolia 3 M FU 3 MO - NO LABS L SHOULDER DR TO FAX Reason for Visit Encounter for educat ion Cancer of left female breast Osteoporosis Diarrhea Anxiety Essential hypertension Left shoulder pain Cancer of left female breast Osteoporosis Chief Complaint 3 MO - NO LABS L SHOULDER DR TO FAX 3 M FU HX BREAST CANCER Reason for Visit Cancer of left femal e breast Osteoporosis Dermatitis Diarrhea Ear ache Essential hypertension Chief Complaint L SHOULDER DR TO FAX 3 M FU HX BREAST CANCER 4 MO - NO LABS prolia HEADACHES 3 M FU Reason for Visit Dermatitis Diarrhea Ear ache Essential hypertension Cancer of left female breast Osteoporosis Encounter for education Headache Cancer of left female breast Osteoporosis Anxiety Essential hypertension Migraine Chief Complaint 4 MO - NO LABS prolia HEADACHES 3 M FU 6 wk FU XRAY Reason for Visit Cancer of left femal e breast Osteoporosis Encounter for education Headache Cancer of left female breast Osteoporosis Anxiety Essential hypertension Migraine Gastritis CKD (chronic kidney disease) Essential hypertension Lumbar radiculopathy Migraine Chief Complaint 6 wk FU XRAY SCREENING OSTEO Lung Cancer Screening Reason for Visit Gastritis CKD (chronic kidney disease) Essential hypertension Lumbar radiculopathy Migraine Encounter for screening for malignant neoplasm of lung History of tobacco use Chief Complaint XRAY SCREENING OSTEO Lung Cancer Screening Amb Documentation 3 M FU Reason for Visit Encounter for screen ing for malignant neoplasm of lung History of tobacco use Gastritis CKD (chronic kidney disease) Essential hypertension Hyperlipidemia Migraine Chief Complaint XRAY SCREENING OSTEO Lung Cancer Screening Amb Documentation 3 M FU prolia 6 MO - LABS - PROLIA PALP RIGHT BREAST PAIN Reason for Visit Encounter for screen ing for malignant neoplasm of lung History of tobacco use Gastritis CKD (chronic kidney disease) Essential hypertension Hyperlipidemia Migraine Encounter for education Headache Cancer of left female breast Osteoporosis Breast pain, right Palpitation Cancer of left female breast Osteoporosis Chief Complaint XRAY SCREENING OSTEO Lung Cancer Screening Amb Documentation 3 M FU prolia 6 MO - LABS - PROLIA PALP PALP RIGHT BREAST PAIN Reason for Visit Encounter for screen ing for malignant neoplasm of lung History of tobacco use Gastritis CKD (chronic kidney disease) Essential hypertension Hyperlipidemia Migraine Encounter for education Headache Cancer of left female breast Osteoporosis Breast pain, right Palpitation Cancer of left female breast Osteoporosis Chief Complaint Admit Date BITE March 28, 2024 2 :42pm DOG BITE HAND March 30, 2024 1 0:44am room 2 March 30, 2024 1 1:32am Wound FU April 02, 2024 1 2:59pm 1 W F/U April 09, 2024 1:42pm 6 M FU April 16, 2024 10:57am CPAP FOLLOW UP May 05, 2024 10 :44am ANTINEOPLASTIC CHEMO May 10, 2024 1:10pm ORIANA, Hyperosmnolence May 24, 2024 8:49pm Lung cancer screening June 01, 2024 12:30pm SCREENING June 01, 2024 1 :07pm SCREENING June 01, 2024 1 :35pm 6 MO - NO LABS - PROLIA July 01, 2024 1:56pm prolia July 01, 2024 2:30 pm HEADACHES July 01, 2024 3:28 pm 2 ORDERING GEE July 05, 2024 10: 52am Reason for Visit Admit Date Dog bite of multiple sites of left hand and fingers March 30, 2024 10:44am Laceration of left hand involving extens or tendon April 02, 2024 12:59pm Laceration of left hand involving extens or tendon April 09, 2024 1:42pm Cancer of left female breast April 162023 10:57am Essential hypertension April 16 10:57am Hyperlipidemia April 16, 2024 10:57am Chills May 05, 2024 10 :44am Flu vaccine need May 05, 2024 10 :44am History of breast cancer May 05 10:44am Essential hypertension May 05, 2024 10:44am Hyperlipidemia May 05, 2024 10 :44am Obstructive sleep apnea May 05 10:44am Encounter for screening for malignant ne oplasm of lung June 01, 2024 12:30pm History of tobacco use June 01 12:30pm Cancer of left female breast July 01, 2024 1:56pm Osteoporosis July 01, 2024 1:56 pm Encounter for education July 01, 2024 2:30pm Headache July 01, 2024 2:30 pm Cancer of left female breast July 01, 2024 2:30pm Osteoporosis July 01, 2024 2:30 pm Nausea July 01, 2024 2:30 pm Chief Complaint Admit Date 6 MO - NO LABS - PROLIA July 01, 2024 1:56pm prolia July 01, 2024 2:30 pm HEADACHES July 01, 2024 3:28 pm 2 ORDERING GEE July 05, 2024 10: 52am 3 m fu/CPAP FORM IN SURG CLEARANCE FOLDE R August 02, 2024 10:58am Reason for Visit Admit Date Cancer of left female breast July 01, 2024 1:56pm Osteoporosis July 01, 2024 1:56 pm Encounter for education July 01, 2024 2:30pm Headache July 01, 2024 2:30 pm Cancer of left female breast July 01, 2024 2:30pm Osteoporosis July 01, 2024 2:30 pm Nausea July 01, 2024 2:30 pm Burning with urination August 02, 2024 1 0:58am Essential hypertension August 02, 2024 1 0:58am Hyperlipidemia August 02, 2024 10:5 8am Obesity August 02, 2024 10:5 8am Obstructive sleep apnea August 02, 2024 10:58am Family History No Family History Records Found Relationship Condition Age at Onset Recorded Date/T narendra Not Specified Osteoporosis Unknown Hyperlipidemia Unknown Anxiety and depression Unknown Malignant neoplasm Unknown Hypertension Unknown brother Coronary artery disease Unknown Myocardial infarction 40 grandmother Malignant neoplasm of breast Unknown aunt Malignant neoplasm of breast Unknown Malignant neoplasm of lung Unknown sister Rheumatoid arthritis Unknown Mayes's esophagus Unknown Polyp of colon Unknown Monoclonal gammopathy Unknown father Malignant neoplasm of lung Unknown uncle Malignant neoplasm of lung Unknown mother Vascular dementia Unknown Alzheimer's disease Unknown Summary Purpose Additional Source Comments Goals (unrecognized section and content) Goals may be documented in a n alternate sectionGoals may be documented in an alternate sectionGoals may be documented in an alternate sectionGoals may be documented in an alternate sectionGoals may be documented in an alternate sectionGoals may be documented in an alternate sectionGoals may be documented in an alternate sectionGoals may be documented in an alternate sectionGoals may be documented in an alternate sectionGoals may be documented in an alternate sectionGoals may be documented in an alternate sectionGoals may be documented in an alternate sectionGoals may be documented in an alternate sectionGoals may be documented in an alternate sectionGoals may be documented in an alternate sectionGoals may be documented in an alternate sectionGoals may be documented in an alternate sectionGoals may be documented in an alternate sectionGoals may be documented in an alternate section Care Teams (unrecognized sec tion and content) Team Status: Active Member Role Status Dates Dr. Asif Drew MD Family Provider Active Dr. Chris Montelongo MD Primary Care Provider Active Team Status: Inactive Member Role Status Dates Dr. Chris Montelongo MD Primary Care Provider, Refer ring Provider Active Dr. Jennifer Simental MD Attending Provider Active Team Status: Inactive Member Role Status Dates Dr. Chris Montelongo MD Primary Care P rovider, Attending Provider, Referring Provider Active Team Status: Inactive Member Role Status Dates Dr. Chris Montelongo MD Primary Care Provider Active Felicia Marrufo HEALTH ADVISOR, HEALTH ADVISOR-C Attending Provider, Referring Provider Active Team Status: Inactive Member Role Status Dates Dr. Chris Montelongo MD Primary Care Provider Active Dr. Jennifer Simental MD Attending Provider Active Team Status: Inactive Member Role Status Dates Dr. Chris Montelongo MD Primary Care Provider Active Dr. Jennifer Simental MD Attending Provider, Referrin g Provider Active Team Status: Active Member Role Status Dates Dr. Chris Montelongo MD Primary Care P rovider, Attending Provider, Referring Provider Active Team Status: Active Member Role Status Dates Dr. Asif Drew MD Primary Care Provider Active Dr. Jennifer Simental MD Attending Provider Active Dr. Carlos Cameron MD Referring Provider Active Team Status: Inactive Member Role Status Dates Dr. Chris Montelongo MD Primary Care Provider Active RANJEET RODRIGUEZ Attending Provider, Referring Provider Active Team Status: Inactive Member Role Status Dates Dr. Chris Montelongo MD Primary Care Provider Active Dr. Scott Smith MD Attending Provider Active Team Status: Inactive Member Role Status Dates Dr. Chris Montelongo MD Primary Care Provider Active Dr. Octavia Hector MD Attending Provider, Referring Provider Active Team Status: Inactive Member Role Status Dates Dr. Chris Montelongo MD Primary Care Provider, Refer ring Provider Active Felicia Marrufo HEALTH ADVISOR, HEALTH ADVISOR-C Attending Provider Active Team Status: Active Member Role Status Dates Dr. Chris Montelongo MD Primary Care Provider Active Belen Connor Attending Provider Active Team Status: Inactive Member Role Status Dates Dr. Chris Montelongo MD Primary Care Provider, Atten ding Provider Active Team Status: Inactive Member Role Status Dates Dr. Chris Montelongo MD Primary Care Provider, Refer ring Provider Active Dr. Jennifer Simental MD Active Felicia Marrufo HEALTH ADVISOR, HEALTH ADVISOR-C Attending Provider Active Team Status: Active Member Role Status Dates Dr. Chris Montelongo MD Primary Care Provider Active Felicia Marrufo HEALTH ADVISOR, HEALTH ADVISOR-C Attending Provider, Referring Provider Active Team Status: Active Member Role Status Dates Dr. Chris Montelongo MD Primary Care Provider Active Dr. 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 Chris Montelongo MD Primary Care Provider Active Team Status: Inactive Member Role Status Dates Dr. Chris Montelongo MD Primary Care Provider Active Start: March 28, 2024 End: March 28, 2024 Dr. Jonnie Denson MD Attending Provider Active Sta rt: March 28, 2024 End: March 28, 2024 Dr. Jnonie Denson MD Referring Provider Active Sta rt: March 28, 2024 End: March 28, 2024 Dr. Jonnie Denson MD Emergency Provider Active Sta rt: March 28, 2024 End: March 28, 2024 Team Status: Inactive Member Role Status Dates Dr. Chris Montelongo MD Primary Care Provider Active Start: March 30, 2024 End: March 30, 2024 Dr. Chris Montelongo MD Referring Provider Active Start: March 30, 2024 End: March 30, 2024 Dr. Carlos Rowe MD Attending Provider Active Start: March 30, 2024 End: March 30, 2024 Team Status: Inactive Member Role Status Dates Dr. Chris Montelongo MD Primary Care Provider Active Start: March 30, 2024 End: March 30, 2024 Dr. Scott Smith MD Attending Provider Active S tart: March 30, 2024 End: March 30, 2024 Team Status: Inactive Member Role Status Dates Dr. Chris Montelongo MD Primary Care Provider Active Start: April 01, 2024 End: April 01, 2024 Dr. Octavia Hector MD Attending Provider Active Start: April 01, 2024 End: April 01, 2024 Dr. Octavia Hector MD Referring Provider Active Start: April 01, 2024 End: April 01, 2024 Team Status: Inactive Member Role Status Dates Dr. Chris Montelongo MD Primary Care Provider Active Start: April 02, 2024 End: April 02, 2024 Dr. Chris Montelongo MD Referring Provider Active Start: April 02, 2024 End: April 02, 2024 Dr. Carlos Rowe MD Attending Provider Active Start: April 02, 2024 End: April 02, 2024 Team Status: Inactive Member Role Status Dates Dr. Chris Montelongo MD Primary Care Provider Active Start: April 09, 2024 End: April 09, 2024 Dr. Chris Montelongo MD Referring Provider Active Start: April 09, 2024 End: April 09, 2024 Dr. Carlos Rowe MD Attending Provider Active Start: April 09, 2024 End: April 09, 2024 Team Status: Inactive Member Role Status Dates Dr. Chris Montelongo MD Primary Care Provider Active Start: April 16, 2024 End: April 16, 2024 Dr. Chris Montelongo MD Referring Provider Active Start: April 16, 2024 End: April 16, 2024 Dr. Scott Smith MD Attending Provider Active S tart: April 16, 2024 End: April 16, 2024 Team Status: Inactive Member Role Status Dates Dr. Chris Montelongo MD Primary Care Provider Active Start: May 05, 2024 End: May 05, 2024 Dr. Chris Montelongo MD Attending Provider Active Start: May 05, 2024 End: May 05, 2024 Dr. Chris Montelongo MD Referring Provider Active Start: May 05, 2024 End: May 05, 2024 Team Status: Inactive Member Role Status Dates Dr. Chris Montelongo MD Primary Care Provider Active Start: May 10, 2024 End: May 10, 2024 Dr. Scott Smith MD Attending Provider Active S tart: May 10, 2024 End: May 10, 2024 Dr. Scott Smith MD Referring Provider Active S tart: May 10, 2024 End: May 10, 2024 Team Status: Active Member Role Status Dates Dr. Chris Montelongo MD Primary Care Provider Active Start: May 10, 2024 Dr. Scott Smith MD Attending Provider Active S tart: May 10, 2024 Team Status: Inactive Member Role Status Dates Dr. Chris Montelongo MD Primary Care Provider Active Start: May 24, 2024 End: May 24, 2024 Dr. Chris Montelongo MD Attending Provider Active Start: May 24, 2024 End: May 24, 2024 Dr. Chris Montelongo MD Referring Provider Active Start: May 24, 2024 End: May 24, 2024 Team Status: Inactive Member Role Status Dates Dr. Chris Montelongo MD Primary Care Provider Active Start: June 01, 2024 End: June 01, 2024 Felicia Marrufo HEALTH ADVISOR, HEALTH ADVISOR-C Attending Provider Active Start: June 01, 2024 End: June 01, 2024 Felicia Marrufo HEALTH ADVISOR, HEALTH ADVISOR-C Referring Provider Active Start: June 01, 2024 End: June 01, 2024 Team Status: Inactive Member Role Status Dates Dr. Chris Montelongo MD Primary Care Provider Active Start: June 01, 2024 End: June 01, 2024 Dr. Jennifer Simental MD Attending Provider Active Start: June 01, 2024 End: June 01, 2024 Dr. Jennifer Simental MD Referring Provider Active Start: June 01, 2024 End: June 01, 2024 Team Status: Inactive Member Role Status Dates Dr. Chris Montelongo MD Primary Care Provider Active Start: July 01, 2024 End: July 01, 2024 Dr. Chris Montelongo MD Referring Provider Active Start: July 01, 2024 End: July 01, 2024 Dr. Jennifer Simental MD Attending Provider Active Start: July 01, 2024 End: July 01, 2024 Team Status: Active Member Role Status Dates Dr. Asif Drew MD Primary Care Provider Active Start: July 01, 2024 Dr. Jennifer Simental MD Attending Provider Active Start: July 01, 2024 Dr. Carlos Cameron MD Referring Provider Active Start: July 01, 2024 Team Status: Inactive Member Role Status Dates Dr. Chris Montelongo MD Primary Care Provider Active Start: July 01, 2024 End: July 01, 2024 Dr. Jennifer Simental MD Attending Provider Active Start: July 01, 2024 End: July 01, 2024 Dr. Jennifer Simental MD Referring Provider Active Start: July 01, 2024 End: July 01, 2024 Team Status: Active Member Role Status Dates Dr. Chris Montelongo MD Primary Care Provider Active Start: July 05, 2024 Dr. Octavia Hector MD Attending Provider Active Start: July 05, 2024 Dr. Octavia Hector MD Referring Provider Active Start: July 05, 2024 Team Status: Inactive Member Role Status Dates Dr. Chris Montelongo MD Primary Care Provider Active Start: July 05, 2024 End: July 05, 2024 Dr. Octavia Hector MD Attending Provider Active Start: July 05, 2024 End: July 05, 2024 Dr. Octavia Hector MD Referring Provider Active Start: July 05, 2024 End: July 05, 2024 Team Status: Inactive Member Role Status Dates Dr. Chris Montelongo MD Primary Care Provider Active Start: August 02, 2024 End: August 02, 2024 Dr. Chris Montelongo MD Attending Provider Active Start: August 02, 2024 End: August 02, 2024 Dr. Chris Montelongo MD Referring Provider Active Start: August 02, 2024 End: August 02, 2024 Team Status: Inactive Member Role Status Dates Dr. Chris Montelongo MD Primary Care Provider Active Start: September 29, 2024 End: September 29, 2024 Dr. Octavia Hector MD Attending Provider Active Start: September 29, 2024 End: September 29, 2024 Dr. Octavia Hector MD Referring Provider Active Start: September 29, 2024 End: September 29, 2024 Source Comments (unrecognize d section and content) In the event this informatio n is protected by the Federal Confidentiality of Alcohol and Drug Abuse Patient Records regulations: The Federal rules restrict any use of the information to criminally investigate or prosecute any alcohol or drug abuse patient.[facility] Reason for Visit (unrecogniz ed section and content) Reason Comments error INFORMATION SOURCE (unrecogn ized section and content) DATE CREATED AUTHOR 09/15/2023 [facility] DATE CREATED AUTHOR AUTHOR'S ORGANIZ ATION 10/18/2024 [facility] FOR RECORDS PERTAINING TO PATIENTS WHO [...] BE BASED ON THE PRIMARY CLINICAL RECORDS. [employer] [facility]. provides no warranty or guarantee of the accuracy or completeness of information in this document.
--- NOTE | 2024-10-23 11:00 | MRI_ITS ---
PROCEDURE: SPINE LUMBAR (ROUTINE) 10/23/2024 REASON FOR EXAM: RADICULOPATHY TECHNIQUE: SPINE LUMBAR (ROUTINE) COMPARISON: None FINDINGS: There is grade 1 retrolisthesis at L1-2, 0.2 cm. The vertebral body height is maintained. Vertebral body marrow signal is normal. Intervertebral disc signal shows desiccation. Normal appearing facets are noted. The L1-L2 level: There is no significant disk protrusion. There is no lateral recess stenosis or foraminal stenosis. There is no critical central canal stenosis. The L2-L3 level: There is mild central disk protrusion. There is no lateral recess stenosis or foraminal stenosis. There is no critical central canal stenosis. The L3-L4 level: There is mild central disk protrusion with increased signal in the margin of the disc consistent with a fissure. There is no lateral recess stenosis or foraminal stenosis. There is no critical central canal stenosis. The L4-L5 level: There is mild central and right and left paracentral disc protrusion with increased signal in the margin of the disc consistent with a fissure. There is no lateral recess stenosis or foraminal stenosis. There is no critical central canal stenosis. The L5-S1 level: There is mild central and left paracentral disk protrusion. There is no lateral recess stenosis or foraminal stenosis. There is no critical central canal stenosis. The visualized conus shows normal signal characteristics. Adjacent soft tissues are unremarkable. MRI/Spine Lumbar (Routine) IMPRESSION: There is grade 1 retrolisthesis at L1-2, 0.2 cm. There is mild degenerative disc disease with no significant spinal stenosis or foraminal narrowing in the lumbar region. Reading Location: [facility]
== END | disposition home or self-care (01) ==
LOC: MRI 10:40
PROVIDERS: PCP Internal Medicine; Referring Provider Anesthesiology Pain Medicine; Visit Provider Anesthesiology Pain Medicine
DX: M54.16 Radiculopathy, lumbar region (principal)
CPT/HCPCS: 72148

== ENCOUNTER → 2024-11-10 | Outpatient (CLI) | payer MEDICARE, BC, SELFPAY ==
--- NOTE | 2024-11-10 11:50 | MRI_ITS ---
PROCEDURE: BREAST BILATERAL W/O AND W 11/10/2024 REASON FOR EXAM: F/U BREAST CANCER 69-year-old female with history of left breast cancer status post left mastectomy in May 2020 and anastrozole for 3 years. Family history of breast cancer in a paternal grandmother and a maternal aunt. TECHNIQUE: BREAST BILATERAL W/O AND W CONTRAST: 18 mL of IV Clariscan COMPARISON: Mammogram 06/01/2024, MRI 11/21/2023 FINDINGS: TISSUE DENSITY: There are scattered areas of fibroglandular density. Background Parenchymal Enhancement: Minimal RIGHT Breast: No suspicious mass or non-mass enhancement. LEFT Breast: Status post left mastectomy. Other Findings: No suspicious axillary or internal mammary lymph nodes. Visualized portions of the thoracic and abdominal viscera are unremarkable. MRI/Breast Bilateral W/O and W IMPRESSION: OVERALL FINAL ASSESSMENT BI-RADS 1: NEGATIVE RECOMMENDATION: Routine annual follow-up in 1 Year Reading Location: [id number]
--- NOTE | 2024-11-10 11:50 | MRI_ITS ---
PROCEDURE: BREAST BILATERAL W/O AND W 11/10/2024 REASON FOR EXAM: F/U BREAST CANCER 69-year-old female with history of left breast cancer status post left mastectomy in May 2020 and anastrozole for 3 years. Family history of breast cancer in a paternal grandmother and a maternal aunt. TECHNIQUE: BREAST BILATERAL W/O AND W CONTRAST: 18 mL of IV Clariscan COMPARISON: Mammogram 06/01/2024, MRI 11/21/2023 FINDINGS: TISSUE DENSITY: There are scattered areas of fibroglandular density. Background Parenchymal Enhancement: Minimal RIGHT Breast: No suspicious mass or non-mass enhancement. LEFT Breast: Status post left mastectomy. Other Findings: No suspicious axillary or internal mammary lymph nodes. Visualized portions of the thoracic and abdominal viscera are unremarkable. MRI/Breast Bilateral W/O and W IMPRESSION: OVERALL FINAL ASSESSMENT BI-RADS 1: NEGATIVE RECOMMENDATION: Routine annual follow-up in 1 Year Reading Location: [id number]
[2024-11-10 13:09] LABS: Hematocrit 38.1 % (37-47); Hemoglobin 12.6 g/dL (12.0-15.0); Immature Granulocytes Count 0.110 X10^3/uL (0.0-0.0); Mean Corp Hgb Conc 33.1 g/dL (32-36); Mean Corpuscular Volume 96.2 fL (81-99); Mean Platelet Vol. 9.5 fl (6.2-12.0); NRBC Flagged by Analyzer 0 % (0-5); Platelet Count 324 K/mm3 (150-450); RBC Distribution Width CV 13.2 % (11.6-14.6); RBC Distribution Width SD 46.6 fl (35.1-43.9); Red Blood Count 3.96 M/mm3 (4.2-5.4); White Blood Count 9.1 K/mm3 (4.4-11.0)
[2024-11-10 14:22] LABS: AST(SGOT) 17 U/L (<=31); Alanine Aminotransfer ALT/SGPT 16 U/L (<=34); Albumin, Serum 4.1 g/dL (3.4-4.8); Alkaline Phosphatase 60 U/L (35-104); Anion Gap 10 (5-15); BUN 20 mg/dL (4-19); BUN/Creat Ratio 17.1 RATIO (10-20); Calcium,Total 9.2 mg/dL (7.6-11.0); Carbon Dioxide 24.8 mmol/L (21.0-32.0); Chloride 104 mmol/L (98-108); Globulin 2.4 g/dL (2.2-4.2); Glucose 86 mg/dL (70-99); Potassium 4.7 mmol/L (3.3-5.1)
== END | disposition home or self-care (01) ==
PROVIDERS: PCP Internal Medicine; Referring Provider Internal Medicine Hematology & Oncology; Visit Provider Internal Medicine Hematology & Oncology
DX: M06.4 Inflammatory polyarthropathy (principal); C50.112 Malignant neoplasm of central portion of left female breast; M79.7 Fibromyalgia; M19.041 Primary osteoarthritis, right hand; Z79.899 Other long term (current) drug therapy; Z17.0 Estrogen receptor positive status [ER+]
CPT/HCPCS: 36415; 77049; 80053; 85025; A9575; A4216; C8908

== ENCOUNTER → 2024-12-22 | Outpatient (CLI) | payer MEDICARE, BC, SELFPAY ==
[2024-12-22 15:33] LABS: Hematocrit 37.4 % (37-47); Hemoglobin 12.1 g/dL (12.0-15.0); Immature Granulocytes Count 0.080 X10^3/uL (0.0-0.0); Mean Corp Hgb Conc 32.4 g/dL (32-36); Mean Corpuscular Volume 98.2 fL (81-99); Mean Platelet Vol. 10.1 fl (6.2-12.0); NRBC Flagged by Analyzer 0 % (0-5); Platelet Count 337 K/mm3 (150-450); RBC Distribution Width CV 12.8 % (11.6-14.6); RBC Distribution Width SD 45.7 fl (35.1-43.9); Red Blood Count 3.81 M/mm3 (4.2-5.4); White Blood Count 8.2 K/mm3 (4.4-11.0)
[2024-12-22 15:52] LABS: AST(SGOT) 20 U/L (<=31); Alanine Aminotransfer ALT/SGPT 17 U/L (<=34); Albumin, Serum 4.1 g/dL (3.4-4.8); Alkaline Phosphatase 57 U/L (35-104); Anion Gap 9 (5-15); BUN 17 mg/dL (4-19); BUN/Creat Ratio 16.6 RATIO (10-20); Calcium,Total 9.1 mg/dL (7.6-11.0); Carbon Dioxide 23.2 mmol/L (21.0-32.0); Chloride 107 mmol/L (98-108); Globulin 2.2 g/dL (2.2-4.2); Glucose 111 mg/dL (70-99); Potassium 4.4 mmol/L (3.3-5.1)
== END | disposition home or self-care (01) ==
LOC: LAB 14:26
PROVIDERS: PCP Internal Medicine; Referring Provider Internal Medicine Rheumatology; Visit Provider Internal Medicine Rheumatology
DX: M06.4 Inflammatory polyarthropathy (principal); M79.7 Fibromyalgia; M19.041 Primary osteoarthritis, right hand; Z79.899 Other long term (current) drug therapy
CPT/HCPCS: 36415; 80053; 85025

== ENCOUNTER 2025-02-01 13:41 | Observation (INO) | payer MEDICARE, BC, SELFPAY ==
[2025-02-01] VITALS (12 sets, daily range): BP systolic 135–211; BP diastolic 64–102; PULSE 57–82; RESP 12–19; TEMP 36.6–37.1; O2SAT 95–100; BMI 33.6; BMI 33.3
--- NOTE | 2025-02-01 13:49 | EKG12_ITS ---
Test Reason : STROKE ALERT Blood Pressure : */* mmHG Vent. Rate : 59 BPM Atrial Rate : 59 BPM P-R Int : 154 ms QRS Dur : 90 ms QT Int : 424 ms P-R-T Axes : 55 31 50 degrees QTcB Int : 419 ms Sinus bradycardia Minimal voltage criteria for LVH, may be normal variant ( Sokolow-Martínez ) Borderline ECG Confirmed by HUMBERTO DAVIS, SARAH ([id number]), online editor MARY OSCAR ([id number]) on 02/02/2025 1:26:47 PM Referred By: LISSY Confirmed By: SARAH PAUL MD
--- NOTE | 2025-02-01 13:49 | CT_ITS ---
PROCEDURE: STROKE BRAIN/HEAD WITHOUT CONT 02/01/2025 REASON FOR EXAM: NEURO DEFICIT, ACUTE, STROKE SUSPECTED TECHNIQUE: Procedure Code: CTBR.ST Modality: CT Procedure: STROKE BRAIN/HEAD WITHOUT CONT Coronal and Sagittal reconstruction series were provided. One or more dose reduction techniques were used (e.g., Automated exposure control, adjustment of the mA and/or kV according to patient size, use of iterative reconstruction technique. RADIATION DOSE SUMMARY: DLP: 837 mGycm COMPARISON: 07/01/24 MRI FINDINGS: There is no acute infarct, intracranial hemorrhage, or mass effect. There is no hydrocephalus or significant midline shift. No acute, depressed calvarial fractures. No large scalp hematomas. The paranasal sinuses are clear. CT/STROKE Brain/Head without Cont IMPRESSION: No acute, large territorial infarction. Stroke Alert: Negative The critical findings in the findings and impression above were relayed directl y by me by telephone to Hira Morrison on 02/01/2025 at 2:20pm with readback verification. Reading Location: [id number]
[2025-02-01 14:14] LABS: Hematocrit 39.8 % (37-47); Hemoglobin 12.8 g/dL (12.0-15.0); Immature Granulocytes Count 0.210 X10^3/uL (0.0-0.0); Mean Corp Hgb Conc 32.2 g/dL (32-36); Mean Corpuscular Volume 97.8 fL (81-99); Mean Platelet Vol. 9.4 fl (6.2-12.0); NRBC Flagged by Analyzer 0 % (0-5); Platelet Count 336 K/mm3 (150-450); RBC Distribution Width CV 13.5 % (11.6-14.6); RBC Distribution Width SD 48.6 fl (35.1-43.9); Red Blood Count 4.07 M/mm3 (4.2-5.4); White Blood Count 15.3 K/mm3 (4.4-11.0)
[2025-02-01] MEDS: DiphenhydrAMINE 50 MG/ML Syringe IV (14:43)
[2025-02-01 14:51] LABS: Anion Gap 12 (5-15); BUN 18 mg/dL (4-19); BUN/Creat Ratio 17.1 RATIO (10-20); Calcium,Total 9.2 mg/dL (7.6-11.0); Carbon Dioxide 23.8 mmol/L (21.0-32.0); Chloride 104 mmol/L (98-108); Estimated Creatinine Clearance 55.29 ml/min (50-250); Glucose 92 mg/dL (70-99); Potassium 4.0 mmol/L (3.3-5.1); Troponin T High Sensitivity 11 ng/L (<=14)
--- NOTE | 2025-02-01 15:06 | EDS_ITS ---
HPI History of Present Illness Chief Complaint: Stroke Alert Narrative Narrative: 69-year-old female past medical history of hypertension, hyperlipidemia presents with multiple somatic complaints, but she stated to triage that she was experiencing left facial numbness as well as left-sided weakness in her arm and leg and right sided headache. Her symptoms began at 8:00 this morning. Was not a wake-up stroke type symptoms. This was approximately 7 hours ago when her symptoms began. She states she was also experiencing shortness of breath as well as chest pain/pressure. She endorses a generalized weakness as well, but more so of her left side. No exacerbating or alleviating factors. Stroke team called by manager medical. [facility] Medical History Poison gi dermatitis Burning with urination Flu vaccine need Chills Elevated d-dimer Tachycardia Cough Insomnia History of breast cancer Dense breast tissue Screening for breast cancer Palpitation Breast pain, right Gastritis Ear ache Dermatitis Diarrhea Lumbar radiculopathy Left shoulder pain Microscopic colitis Colitis Diverticulitis Dry skin dermatitis Obstructive sleep apnea Chronic diarrhea Sleep apnea Hypersomnolence Dense breast tissue on mammogram Screening for thyroid disorder History of tobacco use Encounter for screening for malignant neoplasm of lung BCC (basal cell carcinoma), back Migraine Pain, eye, left ER+ (estrogen receptor positive status) Seasonal allergies Fibromyalgia Personal history of colon cancer Osteoporosis Cancer of left female breast Colon cancer Colon polyps Obesity Hyperlipidemia Asthma Anemia Vitamin D deficiency Herpes labialis Rheumatoid arthritis CKD (chronic kidney disease) History of pulmonary embolus (PE) Essential hypertension Chronic pain Anxiety Home Medications ?Medication ?Instructions ?Recorded ?Last Taken ?Type hydroxychloroquine 200 mg tablet 200 mg PO BID . 11/2302/01/25 History (Plaquenil) denosumab 60 mg/mL subcutaneous 60 mg subcut [id number] BONE DENSITY 05/05/24 01/05/25 History syringe (Prolia) sumatriptan succinate 50 mg tablet See Rx Instructions PO .COMPLEX 07/05/24 Unknown Rx MIGRAINE #14 tabs anastrozole 1 mg tablet 1 mg PO DAILY BREAST CANCER #90 09/03/24 02/01/25 Rx TABLETS hydralazine 25 mg tablet 25 mg PO TID HTN 1 month #90 tabs 12/29/24 02/01/25 Rx epinephrine 0.3 mg/0.3 mL 0.3 mg (0.3 mL) IM Q5-15M MD N 12/30/24 Unknown Rx injection, auto-injector (EpiPen anaphylaxis #4 ea 2-Federico) paroxetine HCl 30 mg tablet 30 mg PO DAILY ANXIETY #90 tabs 12/30/24 02/01/25 Rx propranolol 80 mg capsule,24 80 mg PO QHS HTN #90 caps 01/24/25 01/31/25 Rx hr,extended release trazodone 100 mg tablet 100 mg PO QHS Sleep #90 tabs 01/24/25 01/31/25 Rx albuterol sulfate 90 mcg/actuation 2 puff inhalation Q 6H PRN Asthma 01/25/25 Unknown Rx aerosol inhaler #8.5 grams aabzhoj-dyfqgydnljnbj-vobafzwl 250 1 tab PO Q6H PRN pa in 02/01/25 Unknown History mg-250 mg-65 mg tablet (Excedrin Extra Strength) folic acid 1 mg tablet 2 mg PO DAILY SUPPLEMENT 11/1901/31/25 History hydrocodone-acetaminophen 5-325mg 1 tab PO BID PRN ira n 02/01/25 Unknown History 5mg-325mg prednisone 20 mg tablet 40 mg PO DAILY POISION GI 1 01/31/25 History Allergy/AdvReac Type Severity Reaction Status Date / Time Iodinated Contrast Media AdvReac Severe Hives Verified 02/01/25 13:43 (CONTRASTS) latex AdvReac Severe Rash Verified 02/01/25 13:43 morphine AdvReac Other Verified 02/01/25 13:43 Family History Brother CAD (coronary artery disease) CABG Myocardial infarction, Onset Age: 40 Grandmother Breast cancer paternal Aunt Breast cancer maternal Lung cancer paternal Sister Rheumatoid arthritis Mayes esophagus Colon polyps Monoclonal gammopathy Father Lung cancer Uncle Lung cancer paternal Mother Vascular dementia Alzheimers disease Other Anxiety and depression Cancer Hyperlipemia Hypertension Osteoporosis Surgical History S/P laparoscopic cholecystectomy History of colonoscopy History of rotator cuff surgery History of tooth extraction History of left mastectomy History of colonoscopy with polypectomy History of left breast biopsy (04/2020) History of left heart catheterization (05/16/06) History of hysterectomy History of appendectomy Social History Smoking Status: Former smoker quit date: 04/28/05 pack-years: 30 Tobacco: How many years used: 30 how long ago did patient quit smokin years quit status: quit date established alcohol intake: current substance use type: does not use what type of physical activity do you participate in: walking and weight training ROS ROS ED ROS Narrative Review of systems positive for left-sided facial numbness, left upper and lower extremity weakness. Positive chest pressure as well as shortness of breath. No fevers or chills, no cough, no exacerbating or alleviating factors. Symptoms began at 8:00 this morning. EXAM Physical Exam Narrative Exam Narrative: Afebrile. Vital signs noted. Nontoxic-appearing. Cardiovascular examination feels regular rate and rhythm. Lungs are clear to auscultation bilaterally. Abdomen is soft and nontender with normal active bowel sounds. No guarding or rebound. Neurological examination shows an NIH stroke scale of 1 for subjective paresthesias of the face. No facial droop noted, no appreciable pronator drift, no leg drift. Const Vital Signs: 02/01/25 13:41 02/01/25 13:47 02/01/25 13:47 Temperature 98 F Temperature Source Oral Pulse Rate 69 70 70 Respiratory Rate 18 16 18 Respiratory Effort Blood Pressure 192/96 H 192/96 H 192/96 H Blood Pressure Mean 128 128 128 Pulse Ox 100 98 98 Oxygen Delivery Method Room Air Room Air 02/01/25 14:01 02/01/25 14:01 02/01/25 14:01 Temperature Temperature Source Pulse Rate 63 Respiratory Rate 17 Respiratory Effort Normal Non-Labored Blood Pressure 211/83 H Blood Pressure Mean 125 Pulse Ox 98 Oxygen Delivery Method Room Air Room Air 02/01/25 14:30 02/01/25 15:00 02/01/25 16:00 Temperature Temperature Source Pulse Rate 68 62 60 Respiratory Rate 19 H 15 12 Respiratory Effort Blood Pressure 188/102 H 190/90 H 138/86 H Blood Pressure Mean 130 123 103 Pulse Ox 99 97 97 Oxygen Delivery Method Room Air Room Air Room Air MDM MDM MDM Narrative Medical decision making narrative: Stroke team was called in triage. On initial assessment, her NIH stroke scale was 1 for paresthesias of the face. I did not appreciate pronator drift of the left arm. In discussion with neurology/teleneurologist, she is outside the window for TNK. Her symptoms began approximately 7 hours ago. Additionally, there was low suspicion for LVO based on her examination and her NIH stroke scale of 1. She does not have a debilitating deficit as well. There was delay in CTA of the head and neck as she has an IV contrast allergy and needs pretreatment. She states usually she is given Benadryl prior, and other times she has been on prednisone orally. Patient pretreated with Solu-Medrol and Benadryl. EKG was obtained and interpreted by myself independently as sinus bradycardia [address] changes. No STEMI, no significant change from EKG from 2023. I reviewed her laboratory work and her WBC count is normal at 15.3 with hemoglobin 12.8, hematocrit 39.8, platelet count 336. Sodium normal at 140 with potassium 4.0, BUN of 18 and creatinine 1.06, high-sensitivity troponin normal at 11. Rplsg-[id number] glucose 84. Chest x-ray obtained in 1 view and interpreted by myself independently shows no acute process, no pneumonia or pneumothorax. I reviewed the radiology report which confirms my independent interpretation. Urinalysis was sent and reviewed, no evidence of infection. I do not feel antibiotics are indicated. I received a call from the radiologist regarding the CT of the brain and there is no acute stroke, no hemorrhage. I will obtain a chest x-ray regarding her chest pain and shortness of breath, but I have low suspicion for pneumonia or pneumothorax as her pulse ox is 99 to 100% on room air. In discussion with teleneurology, there is on the CTA is negative, it was felt that she would require observation for MRI and further stroke workup. Patient will be discussed with the hospitalist for observation on PCU. Patient also signed out to the oncoming physician, Dr. Bowman, to check the CTA of the head and neck results. Patient is in stable condition. History & Record Review Discussion w/independent historian: Patient Additional record(s) reviewed:: Prior ED visit Lab Data Attestation: I reviewed the patient's lab results. Labs: Laboratory Results - last 24 hr 02/01/25 02/01/25 02/01/25 13:46 14:00 16:00 WBC 15.3 H RBC 4.07 L Hgb 12.8 Hct 39.8 MCV 97.8 MCH 31.4 MCHC 32.2 RDW Std Deviation 48.6 H RDW Coeff of Lui 13.5 Plt Count 336 MPV 9.4 Immature Gran % (Auto) 1.400 H Neut % (Auto) 77.7 H Lymph % (Auto) 14.0 L Page % (Auto) 6.3 Eos % (Auto) 0.2 Baso % (Auto) 0.4 Absolute Neuts (auto) 11.9 H Absolute Lymphs (auto) 2.14 Nucleated RBC % 0 Sodium 140 Potassium 4.0 Chloride 104 Carbon Dioxide 23.8 Anion Gap 12 BUN 18 Creatinine 1.06 Estim Creat Clear Calc 55.29 Est GFR (MDRD) Non-Af 57 L BUN/Creatinine Ratio 17.1 Glucose 92 Calcium 9.2 Troponin T High Sens 11 Urine Color Yellow Urine Clarity Clear Urine pH 7.0 Ur Specific [place] 1.010 Urine Protein Negative Urine Glucose (UA) Normal Urine Ketones Negative Urine Occult Blood Negative Urine Nitrite Negative Urine Bilirubin Negative Urine Urobilinogen Normal Ur Leukocyte Esterase Negative Urine RBC 0 SEEN Urine WBC 0 SEEN Ur Squamous Epith Cells 0 SEEN Urine Bacteria 0 SEEN Urine Mucus 0 SEEN POC Glucose 84 Radiography Chest X-Ray - ED: 1 View, Read by ED Physician and Read by Radiologist Diagnostic Testing: Clinical Impression(s) from Imaging Studies Brain CT 02/01/25 13:49 IMPRESSION: No acute, large territorial infarction. Stroke Alert: Negative The critical findings in the findings and impression above were relayed directly by me by telephone to Hira Morrison on 02/01/2025 at 2:20pm with readback verification. Reading Location: [id number] Chest X-Ray 02/01/25 15:35 IMPRESSION: No acute cardiopulmonary abnormalities. Reading Location: [id number] Discharge Plan Dx/Rx/DC Orders Clinical Impression: Left facial numbness, Weakness of left arm, Weakness of left leg, Chest pain, SOB (shortness of breath) Disposition Disposition: Acute Care Hospital [facility] NIHSS NIHSS 1a. Level of Consciousness: 0 - Alert; keenly responsive 1b. LOC Questions: 0 - Answers BOTH questions correctly 1c. LOC Commands: 0 - Performs BOTH tasks correctly 2. Best Gaze: 0 - Normal 3. Visual: 0 - No visual loss 4. Facial Palsy: 0 - Normal symmetrical movements 5a. Left Arm: 0 - No drift; arm holds 90 (or 45) degrees for full 10 seconds 5b. Right Arm: 0 - No drift; arm holds 90 (or 45) degrees for full 10 seconds 6a. Left Le - No drift; leg holds 30-degree position for full 5 seconds 6b. Right Le - No drift; leg holds 30-degree position for full 5 seconds 7. Limb Ataxia: 0 - Absent 8. Sensory: 1 - Pkhr-fg-rpogyaxx sensory loss; 9. Best Language: 0 - No aphasia; normal 10. Dysarthria: 0 - Normal 11. Extinction and Inattention: 0 - No abnormality Total: 1 Stroke Questions Stroke Team Activated: Yes Reviewed Inclusion/Exclusion criteria: Yes IV Thrombolytic Administered: No No contraindications from thrombolytic administration: No (Outside the window.)
--- NOTE | 2025-02-01 15:35 | RAD_ITS ---
PROCEDURE: CHEST 1 VIEW (PORTABLE) 02/01/2025 REASON FOR EXAM: CHEST PAIN TECHNIQUE: Frontal view of the chest. COMPARISON: 02/25/2024. FINDINGS: The heart is normal in size. The lungs are clear. No acute osseous abnormalities. Left axillary surgical clips. RAD/Chest 1 View (Portable) IMPRESSION: No acute cardiopulmonary abnormalities. Reading Location: [id number]
--- NOTE | 2025-02-01 15:45 | CT_ITS ---
PROCEDURE: STROKE CTA HEAD AND NECK W/CON 02/01/2025 REASON FOR EXAM: LEFT-SIDED WEAKNESS TECHNIQUE: Procedure Code: [id number].ST.HN Modality: CT Procedure: STROKE CTA HEAD AND NECK W/CON Multiplanar Sagittal and Coronal images were obtained. 3D post processing was performed. CONTRAST: Isovue 370 VOLUME: 100 mL One or more dose reduction techniques were used (e.g., Automated exposure control, adjustment of the mA and/or kV according to patient size, use of iterative reconstruction technique). RADIATION DOSE SUMMARY: DLP: 589.97 mGycm COMPARISON: None. FINDINGS: CTA HEAD: Patent intracranial arterial vasculature. No large vessel occlusion, flow- limiting stenosis, saccular aneurysm, or vascular malformation identified. Left posterior cerebral artery is predominantly origin with diminutive/hypoplastic connection to the basilar. Relatively hypoplastic left anterior cerebral artery A1 segment compared to the right. Dural venous sinuses appear patent. CTA NECK: Left vertebral artery originates directly from the aortic arch. Bilateral cervical carotid and vertebral arteries are patent without any significant stenosis. No aneurysm or dissection. CT/STROKE CTA Head AND Neck W/Con IMPRESSION: No large vessel arterial occlusion or hemodynamically significant stenosis. Findings communicated with provider Dr. Bowman 02/01/2025 at 3:35 p.m. GOLF CADDIE. Reading Location: [id number]
[2025-02-01 16:05] LABS: Mucous, Urine 0 SEEN /hpf (<or=2+); Red Blood Cells-Urine 0 SEEN /hpf (0-5); Squamous Epithelial Cells - UA 0 SEEN /hpf (5-10)
[2025-02-01 16:06] LABS: Color, Urine Yellow (Yellow); Glucose, Dipstick Normal (Normal); Ketone-Dipstick Negative (Negative); Leukocyte Esterase-Dipstick Negative /ul (Negative); Nitrite-Dipstick Negative (Negative); Occult Blood-Urine Negative /ul (Negative); Protein-Dipstick Negative (Negative); Specific Gravity, Urine 1.010 (1.002-1.030); Urine Bilirubin Dipstick Negative (Negative)
[2025-02-01 16:34] LABS: Troponin T High Sens 2 HR 11 ng/L (<=14)
[2025-02-01 16:47] LABS: Prothrombin Time (Protime)PT. 13.6 SECONDS (11.7-14.9)
--- NOTE | 2025-02-01 17:01 | MRI_ITS ---
PROCEDURE: MRI BRAIN WITHOUT CONTRAST 02/01/2025 REASON FOR EXAM: LEFT SIDED WEAKNESS. TECHNIQUE: Procedure Code: MRIBR Modality: MR Procedure: BRAIN WITHOUT CONTRAST Multiplanar and multisequential MRI of the brain was performed without contrast. COMPARISON: CT head/angiography same day 02/01/2025. Brain MRI 07/01/2024. FINDINGS: No regions of abnormal restricted diffusion to indicate recent infarct. No evidence of acute intracranial hemorrhage, extra-axial collection, mass-effect, or other acute abnormality. Ventricular and sulcal size and configuration are within normal limits for age. Few scattered small foci of T2 FLAIR hyperintensity in the supratentorial white matter, nonspecific but most likely related to mild chronic microangiopathic changes. Preserved major vascular flow voids. Absent [place]ak ocular lenses. Well-aerated paranasal sinuses and mastoid air cells. MRI/Brain without Contrast IMPRESSION: No acute intracranial abnormality; no acute infarct. Reading Location: [id number]
--- NOTE | 2025-02-01 17:01 | ECHOD_ITS ---
Reason For Study Reason For Study: TIA/CVA Procedure This was a 2D Doppler, Color Flow transthoracic echocardiogram. Myocardial strain analysis was performed in this exam to aid in the assessment of cardiac function. Exam performed portable in patient room. Left Ventricle Normal left ventricle. The global longitudinal strain = -18.4 % (normal). The left ventricular ejection fraction is 60 %. Stage 1 diastolic dysfunction. No regional wall motion abnormalities noted. Right Ventricle Normal RV size. Normal systolic function. Atria Normal left atrium. Normal right atrium. Mitral Valve There is mild mitral annular calcification. Trivial eccentric mitral valve insufficiency. Tricuspid Valve Normal tricuspid valve. Mild (1+) tricuspid valve insufficiency. Pulmonary artery systolic pressure is 20 mmHg. Aortic Valve Normal aortic valve. Trisinus/trileaflet aortic valve. Pulmonic Valve Normal pulmonic valve. Great Vessels Normal aortic root. The pulmonary artery is normal size. Inferior vena cava collapse with respiration. Pericardium/Pleural No pericardial effusion. MMode/2D Measurements & Calculations LVIDd: 4.7 cm IVSd: 0.99 cm LVOT diam: 2.0 cm LVIDs: 3.2 cm LVPWd: 0.93 cm LVOT area: 3.2 cm2 RVDd: 4.0 cm FS: 32.3 % asc Aorta Diam: 3.6 cm LAV(MOD-bp): 52.7 ml LVAd ap4: 23.6 cm2 LAV(MOD-bp) Indexed: 26.7 ml/m2 LVLd ap4: 7.0 cm LAV(MOD-sp2): 70.7 ml EDV(MOD-sp4): 64.0 ml LAV(MOD-sp4): 38.1 ml EDV(sp4-el): 67.5 ml LVAs ap4: 14.3 cm2 LVLs ap4: 5.9 cm ESV(MOD-sp4): 28.8 ml ESV(sp4-el): 29.1 ml EF(MOD-sp4): 54.9 % EF(sp4-el): 56.8 % LVAd ap2: 24.9 cm2 SV(MOD-sp4): 35.2 ml SV(MOD-sp2): 43.9 ml LVLd ap2: 7.3 cm SI(MOD-sp4): 17.8 ml/m2 SI(MOD-sp2): 22.2 ml/m2 EDV(MOD-sp2): 71.4 ml EDV(sp2-el): 72.2 ml LVAs ap2: 14.0 cm2 LVLs ap2: 5.9 cm ESV(MOD-sp2): 27.5 ml ESV(sp2-el): 28.1 ml EF(MOD-sp2): 61.5 % SV(sp4-el): 38.3 ml Ao sinus diam: 3.[address] Junction: 2.8 cm LA dimension(2D): 4.2 cm LA A4 area: 15.8 cm2 RA A4 area: 15.3 cm2 TAPSE: 1.8 cm Time Measurements MV dec time: 0.19 sec Doppler Measurements & Calculations MV E max rosalio: 76.6 cm/sec Lat Peak E' Rosalio: 10.8 cm/sec Med Peak E' Rosalio: 7.6 cm/sec MV A max rosalio: 107.1 cm/sec E/E' lat: 7.1 E/E' med: 10.1 MV E/A: 0.72 MV dec slope: 397.5 cm/sec2 Ao V2 max: 147.2 cm/sec LV V1 max: 125.3 cm/sec Ao max P.7 mmHg LV V1 max P.3 mmHg Ao V2 mean: 94.3 cm/sec LV V1 mean P.1 mmHg Ao mean P.1 mmHg LV V1 mean: 81.7 cm/sec Ao V2 VTI: 33.9 cm LV V1 VTI: 30.1 cm AV (velocity ratio): 0.89 ADAM(I,D): 2.8 cm2 ADAM(V,D): 2.7 cm2 SV(LVOT): 94.8 ml PA V2 max: 104.2 cm/sec TR max rosalio: 204.1 cm/sec TR max P.7 mmHg ECHO/Echo Complete Interpretation Summary Normal left ventricle. The global longitudinal strain = -18.4 % (normal). The left ventricular ejection fraction is 60 %. Stage 1 diastolic dysfunction. Ordering Physician: Blayne Yoder Referring Physician: Chris Montelongo Performed By: Maryan Encinas RDCS
--- NOTE | 2025-02-01 17:02 | HP.PCM.HOS_ITS ---
[facility] - General General Date of Service: 02/01/25 Chief Complaint: Left-sided numbness [facility] Narrative KIEL ENGLISH, is a 69 F who presents with left-sided numbness. This morning around 0800, she was experiencing some indigestion and then started experiencing some paresthesias in her left arm. Additionally was also having a headache to which she took some [place]. The headache was on the top part of her head. Patient does have a history of migraines which she does take triptans for but did not have the scotoma that she more commonly gets with her migraines. But went to the doctor's office and was sent here. Patient was noted to be hypertensive with systolic blood pressure in the 200s. Patient underwent a head CT and CTA of the head and neck in the emergency room that was unremarkable. But because of her ongoing symptoms and concern for stroke the hospital service was contacted for admission. Patient has never had any symptoms like this before and has never had any atypical migraine symptoms such as this. [ ] [facility] Medical History Poison gi dermatitis Burning with urination Flu vaccine need Chills Elevated d-dimer Tachycardia Cough Insomnia History of breast cancer Dense breast tissue Screening for breast cancer Palpitation Breast pain, right Gastritis Ear ache Dermatitis Diarrhea Lumbar radiculopathy Left shoulder pain Microscopic colitis Colitis Diverticulitis Dry skin dermatitis Obstructive sleep apnea Chronic diarrhea Sleep apnea Hypersomnolence Dense breast tissue on mammogram Screening for thyroid disorder History of tobacco use Encounter for screening for malignant neoplasm of lung BCC (basal cell carcinoma), back Migraine Pain, eye, left ER+ (estrogen receptor positive status) Seasonal allergies Fibromyalgia Personal history of colon cancer Osteoporosis Cancer of left female breast Colon cancer Colon polyps Obesity Hyperlipidemia Asthma Anemia Vitamin D deficiency Herpes labialis Rheumatoid arthritis CKD (chronic kidney disease) History of pulmonary embolus (PE) Essential hypertension Chronic pain Anxiety Home Medications ?Medication ?Instructions ?Recorded ?Last Taken ?Type hydroxychloroquine 200 mg tablet 200 mg PO BID . 11/2302/01/25 History (Plaquenil) denosumab 60 mg/mL subcutaneous 60 mg subcut [id number] BONE DENSITY 05/05/24 01/05/25 History syringe (Prolia) sumatriptan succinate 50 mg tablet See Rx Instructions PO .COMPLEX 07/05/24 Unknown Rx MIGRAINE #14 tabs anastrozole 1 mg tablet 1 mg PO DAILY BREAST CANCER #90 09/03/24 02/01/25 Rx TABLETS hydralazine 25 mg tablet 25 mg PO TID HTN 1 month #90 tabs 12/29/24 02/01/25 Rx epinephrine 0.3 mg/0.3 mL 0.3 mg (0.3 mL) IM Q5-15M NV N 12/30/24 Unknown Rx injection, auto-injector (EpiPen anaphylaxis #4 ea 2-Federico) paroxetine HCl 30 mg tablet 30 mg PO DAILY ANXIETY #90 tabs 12/30/24 02/01/25 Rx propranolol 80 mg capsule,24 80 mg PO QHS HTN #90 caps 01/24/25 01/31/25 Rx hr,extended release trazodone 100 mg tablet 100 mg PO QHS Sleep #90 tabs 01/24/25 01/31/25 Rx albuterol sulfate 90 mcg/actuation 2 puff inhalation Q 6H PRN Asthma 01/25/25 Unknown Rx aerosol inhaler #8.5 grams [id number]-vxmdrrlw 250 1 tab PO Q6H PRN pa in 02/01/25 Unknown History mg-250 mg-65 mg tablet (Excedrin Extra Strength) folic acid 1 mg tablet 2 mg PO DAILY SUPPLEMENT 11/1901/31/25 History hydrocodone-acetaminophen 5-325mg 1 tab PO BID PRN ira n 02/01/25 Unknown History 5mg-325mg prednisone 20 mg tablet 40 mg PO DAILY POISION GI 1 01/31/25 History Allergy/AdvReac Type Severity Reaction Status Date / Time Iodinated Contrast Media AdvReac Severe Hives Verified 02/01/25 13:43 (CONTRASTS) latex AdvReac Severe Rash Verified 02/01/25 13:43 morphine AdvReac Other Verified 02/01/25 13:43 Family History Brother CAD (coronary artery disease) CABG Myocardial infarction, Onset Age: 40 Grandmother Breast cancer paternal Aunt Breast cancer maternal Lung cancer paternal Sister Rheumatoid arthritis Mayes esophagus Colon polyps Monoclonal gammopathy Father Lung cancer Uncle Lung cancer paternal Mother Vascular dementia Alzheimers disease Other Anxiety and depression Cancer Hyperlipemia Hypertension Osteoporosis Surgical History S/P laparoscopic cholecystectomy History of colonoscopy History of rotator cuff surgery History of tooth extraction History of left mastectomy History of colonoscopy with polypectomy History of left breast biopsy (04/2020) History of left heart catheterization (05/16/06) History of hysterectomy History of appendectomy Social History Smoking Status: Former smoker quit date: 04/28/05 pack-years: 30 Tobacco: How many years used: 30 how long ago did patient quit smokin years quit status: quit date established alcohol intake: current substance use type: does not use what type of physical activity do you participate in: walking and weight training NANCY Ace Has recently contracted poison gi that involved her right arm, groin. Patient had received some IV steroids and then was on a prednisone taper which she had completed. Still does have pruritus. Also does complain of some waviness in her left visual field. Has been short of breath recently. All review of systems were negative except as mentioned above in the history of present illness and the other review of systems. Vital Signs Vital Signs Vital Signs: 02/01/25 13:41 02/01/25 13:47 02/01/25 13:47 Temperature 36.6 C Temperature Source Oral Pulse Rate 69 70 70 Respiratory Rate 18 16 18 Respiratory Effort Blood Pressure 192/96 H 192/96 H 192/96 H Blood Pressure Mean 128 128 128 Pulse Ox 100 98 98 Oxygen Delivery Method Room Air Room Air 02/01/25 14:01 02/01/25 14:01 02/01/25 14:01 Temperature Temperature Source Pulse Rate 63 Respiratory Rate 17 Respiratory Effort Normal Non-Labored Blood Pressure 211/83 H Blood Pressure Mean 125 Pulse Ox 98 Oxygen Delivery Method Room Air Room Air 02/01/25 14:30 02/01/25 15:00 02/01/25 16:00 Temperature Temperature Source Pulse Rate 68 62 60 Respiratory Rate 19 H 15 12 Respiratory Effort Blood Pressure 188/102 H 190/90 H 138/86 H Blood Pressure Mean 130 123 103 Pulse Ox 99 97 97 Oxygen Delivery Method Room Air Room Air Room Air Weight Weight: 91.79 kg Body Mass Index (BMI) 33.6 Physical Exam Const alert and no apparent distress HEENT normocephalic, head/scalp atraumatic, hearing grossly normal bilaterally, moist oral mucous membranes, oropharynx normal and dentition normal Eyes PERRL and EOMs intact bilaterally Neck no lymphadenopathy Neck Narrative: No thyromegaly Resp normal respiratory effort, no retractions, no use of accessory muscles and clear to auscultation bilaterally Cardio regular rate, regular rhythm, S1 normal heart sound and S2 normal heart sound GI normal to inspection, nondistended, normoactive bowel sounds, soft to palpation, non-tender and non-distended Extremity normal to inspection and full ROM Neuro oriented x3, CN's II-XII intact bilaterally and moves all extremities Neuro Narrative: Mo strength is 5-5 in upper extremities bilaterally and right lower extremity 4 out of 5 in the left lower extremity. Sensation was diminished in the left face as well as the left leg compared to the right. Was reported as normal in the left arm as compared to the right. Sensorium / Orientation: awake, alert and oriented to person Coordination / Balance: [id number]-[id number] test normal Speech: speech normal Psych affect normal Results Lab / Micro Data Attestation: I reviewed the patient's lab results. 02/01/25 14:00 02/01/25 14:00 Labs: Laboratory Results - last 24 hr 02/01/25 13:46: POC Glucose 84 02/01/25 14:00: WBC 15.3 H, RBC 4.07 L, Hgb 12.8, Hct 39.8, MCV 97.8, MCH 31.4, MCHC 32.2, RDW Std Deviation 48.6 H, RDW Coeff of Lui 13.5, Plt Count 336, MPV 9.4, Immature Gran % (Auto) 1.400 H, Neut % (Auto) 77.7 H, Lymph % (Auto) 14.0 L , [place] % (Auto) 6.3, Eos % (Auto) 0.2, Baso % (Auto) 0.4, Absolute Neuts (auto) 11.9 H, Absolute Lymphs (auto) 2.14, Nucleated RBC % 0, PT Cancelled, INR Cancelled, APTT Cancelled, Sodium 140, Potassium 4.0, Chloride 104, Carbon Dioxide 23.8, Anion Gap 12, BUN 18, Creatinine 1.06, Estim Creat Clear Calc 55.29, Est GFR (MDRD) Non-Af 57 L, BUN/Creatinine Ratio 17.1, Glucose 92, Calcium 9.2, Troponin T High Sens 11 02/01/25 16:00: Troponin T Hi Sens 2 Hr 11, Urine Color Yellow, Urine Clarity Clear, Urine pH 7.0, Ur Specific Drake 1.010, Urine Protein Negative, Urine Glucose (UA) Normal, Urine Ketones Negative, Urine Occult Blood Negative, Urine Nitrite Negative, Urine Bilirubin Negative, Urine Urobilinogen Normal, Ur Leukocyte Esterase Negative, Urine RBC 0 SEEN, Urine WBC 0 SEEN, Ur Squamous Epith Cells 0 SEEN, Urine Bacteria 0 SEEN, Urine Mucus 0 SEEN EKG Initial EKG: Attestation: I personally reviewed and interpreted this EKG as follows: Prior EKG tracings: available for review EKG Rhythm Intrepretation: Sinus Rhythm Imaging Radiology Impression Brain CT 02/01/25 13:49 IMPRESSION: No acute, large territorial infarction. Stroke Alert: Negative The critical findings in the findings and impression above were relayed directly by me by telephone to Hira Morrison on 02/01/2025 at 2:20pm with readback verification. Reading Location: [facility] Chest X-Ray 02/01/25 15:35 IMPRESSION: No acute cardiopulmonary abnormalities. Reading Location: [address] Head/Neck CTA 02/01/25 15:45 IMPRESSION: No large vessel arterial occlusion or hemodynamically significant stenosis. Findings communicated with provider Dr. Bowman 02/01/2025 at 3:35 p.m. INSURANCE PROCESSOR. Reading Location: [id number] Assessment & Plan Assessment/Plan (1) Left-sided weakness: PLAN: Concern is for stroke as she does have ongoing symptoms. Other possibilities could be atypical migraine but that seems less likely. Head CT and CTA of the head and neck are unremarkable Check MRI of the brain, echocardiogram, and fasting lipid panel. Speech, physical and occupational therapies. Will start aspirin. (2) Hypertensive urgency: PLAN: Blood pressure was over 200 systolic. Currently improved without any intervention at this time. If a stroke this could be upper regulation to maintain cerebral perfusion pressure. Will monitor for now. Patient available as needed labetalol (3) Chest pain: PLAN: Troponins been negative and her EKG was negative as well. May have been related with her hypertension. Will monitor for now. Will be checking echocardiogram and if any wall motion or abnormalities noted, patient may need to have a stress test or a cardiology evaluation. PLAN: Plan Recent Rhus dermatitis: Patient has completed prednisone taper. Looking at her arm seems overall improved but does have some ongoing pruritus. Patient was available as needed diphenhydramine. Migraines: Given the concern for stroke, going to hold off on her triptans for now. Hypertension: Will resume propranolol as well as hydralazine 24 hours after symptoms began which was today at 0800. VTE prophylaxis: Low risk given current observation status in anticipation that patient should be ready for discharge possibly on the eighth. CODE STATUS: Addressed with the patient. Patient wishes to be full code. Discussed with patient's at bedside. Charges/Coding Visit Charges Inpatient E&M: 44346 Init Hosp L3
[2025-02-01 17:31] LABS: Partial Thromboplast Time < 20.0 Seconds (24.1-36.2)
--- NOTE | 2025-02-01 18:57 | CM.ED ---
Social Work Reason for visit: Stroke Alert SW met patients stepmother in triage and escorted to patients room. SW stayed with stepmother while patient was in imaging. Emotional support provided. Carli Aly, STUDENT SERVICES COUNSELOR, [employer]
[2025-02-01 20:12] LABS: Troponin T High Sens 4 HR 9 ng/L (<=14)
[2025-02-01] MEDS: HYDROcodone Bitartrate/Apap 5/325 Tablet PO (20:42)
[2025-02-02 02:00] VITALS: BP 156/75; PULSE 70; RESP 16; O2SAT 96
[2025-02-02 05:51] LABS: Hematocrit 35.4 % (37-47); Hemoglobin 11.4 g/dL (12.0-15.0); Immature Granulocytes Count 0.110 X10^3/uL (0.0-0.0); Mean Corp Hgb Conc 32.2 g/dL (32-36); Mean Corpuscular Volume 97.3 fL (81-99); Mean Platelet Vol. 9.8 fl (6.2-12.0); NRBC Flagged by Analyzer 0 % (0-5); Platelet Count 301 K/mm3 (150-450); RBC Distribution Width CV 13.5 % (11.6-14.6); RBC Distribution Width SD 48.3 fl (35.1-43.9); Red Blood Count 3.64 M/mm3 (4.2-5.4); White Blood Count 12.2 K/mm3 (4.4-11.0)
[2025-02-02 07:03] VITALS: O2SAT 95
[2025-02-02 07:26] LABS: Anion Gap 10 (5-15); BUN 17 mg/dL (4-19); BUN/Creat Ratio 19.3 RATIO (10-20); Calcium,Total 8.7 mg/dL (7.6-11.0); Carbon Dioxide 22.8 mmol/L (21.0-32.0); Chloride 108 mmol/L (98-108); Cholesterol 176 mg/dL (<=200); Estimated Creatinine Clearance 67.02 ml/min (50-250); Glucose 99 mg/dL (70-99); Low Density Lipoprotein Calc. 79 mg/dL; Potassium 4.2 mmol/L (3.3-5.1); Triglycerides 67 mg/dL; Very Low Density Lipoprotein 13 mg/dL (5-40); cholesterol:hdl ratio screen 2.10
[2025-02-02 10:00] VITALS: BP 162/74; PULSE 83; RESP 16; TEMP 36.6; O2SAT 98
--- NOTE | 2025-02-02 11:10 | CASEMGMT ---
Social Work Per imaging pt negative for stroke, therefore PHQ9 not completed. FAWN Henley
[2025-02-02 11:56] VITALS: BMI 33.3
--- NOTE | 2025-02-02 14:39 | CON.PCM.NE_ITS ---
Assessment and Plan: Stroke Assessment/Plan KIEL ENGLISH is a 69 year old right handed female ex-smoker with a history of complicated migraines (visual floaters), ORIANA, HTN, HL, CRI who on 02/01/25 at 8a developed CP, SOB, generalized weakness (left worse than right), and right sided headache. She presented to [place] [facility]. CT brain negative. CTA head/neck negative. She was admitted. MRI brain DWI negative. LDL 79, HgbA1c 5.5. TTE EF 60%. Neurological examination shows nonfocal exam, NIHSS-0. ASSESSMENT/PLAN: Possible complicated migraine 1) Stroke ruled out with negative MRI brain DWI despite persistent symptoms. Recommend DC Asa since not a home med 2) No further stroke work-up recommended. Please call us with further stroke related questions Ricarda Negrete MD Primary team messaged recs on backline HPI Consult Data Date of Consult: 02/02/25 HPI Narrative HPI Narrative: KIEL ENGLISH is a 69 year old right handed female with a history of complicated migraines (visual floaters), ORIANA, HTN, HL, CRI who on 02/01/25 at 8a developed CP, SOB, generalized weakness (left worse than right), and right sided headache. She presented to [place] ER. CT brain negative. CTA head/neck negative. She was admitted. MRI brain DWI negative. LDL 79, HgbA1c 5.5. TTE EF 60%. She had a similar episode years ago, was felt to be related to BP, she returned to baseline after a couple fo days. This AM BP 156/75. patient feels better, still has generalized weakness (L worse than R), and left sided PHAM this AM 510. She does not take Asa at home. [facility] Medical History Poison gi dermatitis Burning with urination Flu vaccine need Chills Elevated d-dimer Tachycardia Cough Insomnia History of breast cancer Dense breast tissue Screening for breast cancer Palpitation Breast pain, right Gastritis Ear ache Dermatitis Diarrhea Lumbar radiculopathy Left shoulder pain Microscopic colitis Colitis Diverticulitis Dry skin dermatitis Obstructive sleep apnea Chronic diarrhea Sleep apnea Hypersomnolence Dense breast tissue on mammogram Screening for thyroid disorder History of tobacco use Encounter for screening for malignant neoplasm of lung BCC (basal cell carcinoma), back Migraine Pain, eye, left ER+ (estrogen receptor positive status) Seasonal allergies Fibromyalgia Personal history of colon cancer Osteoporosis Cancer of left female breast Colon cancer Colon polyps Obesity Hyperlipidemia Asthma Anemia Vitamin D deficiency Herpes labialis Rheumatoid arthritis CKD (chronic kidney disease) History of pulmonary embolus (PE) Essential hypertension Chronic pain Anxiety Home Medications ?Medication ?Instructions ?Recorded ?Last Taken ?Type hydroxychloroquine 200 mg tablet 200 mg PO BID . 11/2302/01/25 History (Plaquenil) denosumab 60 mg/mL subcutaneous 60 mg subcut [id number] BONE DENSITY 05/05/24 01/05/25 History syringe (Prolia) sumatriptan succinate 50 mg tablet See Rx Instructions PO .COMPLEX 07/05/24 Unknown Rx MIGRAINE #14 tabs anastrozole 1 mg tablet 1 mg PO DAILY BREAST CANCER #90 09/03/24 02/01/25 Rx TABLETS hydralazine 25 mg tablet 25 mg PO TID HTN 1 month #90 tabs 12/29/24 02/01/25 Rx epinephrine 0.3 mg/0.3 mL 0.3 mg (0.3 mL) IM Q5-15M DE N 12/30/24 Unknown Rx injection, auto-injector (EpiPen anaphylaxis #4 ea 2-Federico) paroxetine HCl 30 mg tablet 30 mg PO DAILY ANXIETY #90 tabs 12/30/24 02/01/25 Rx propranolol 80 mg capsule,24 80 mg PO QHS HTN #90 caps 01/24/25 01/31/25 Rx hr,extended release trazodone 100 mg tablet 100 mg PO QHS Sleep #90 tabs 01/24/25 01/31/25 Rx albuterol sulfate 90 mcg/actuation 2 puff inhalation Q 6H PRN Asthma 01/25/25 Unknown Rx aerosol inhaler #8.5 grams [id number] 250 1 tab PO Q6H PRN pa in 02/01/25 Unknown History mg-250 mg-65 mg tablet (Excedrin Extra Strength) folic acid 1 mg tablet 2 mg PO DAILY SUPPLEMENT 11/1901/31/25 History hydrocodone-acetaminophen 5-325mg 1 tab PO BID PRN ira n 02/01/25 Unknown History 5mg-325mg prednisone 20 mg tablet 40 mg PO DAILY POISION GI 1 01/31/25 History Allergy/AdvReac Type Severity Reaction Status Date / Time Iodinated Contrast Media AdvReac Severe Hives Verified 02/01/25 13:43 (CONTRASTS) latex AdvReac Severe Rash Verified 02/01/25 13:43 morphine AdvReac Other Verified 02/01/25 13:43 Family History Brother CAD (coronary artery disease) CABG Myocardial infarction, Onset Age: 40 Grandmother Breast cancer paternal Aunt Breast cancer maternal Lung cancer paternal Sister Rheumatoid arthritis Mayes esophagus Colon polyps Monoclonal gammopathy Father Lung cancer Uncle Lung cancer paternal Mother Vascular dementia Alzheimers disease Other Anxiety and depression Cancer Hyperlipemia Hypertension Osteoporosis Surgical History S/P laparoscopic cholecystectomy History of colonoscopy History of rotator cuff surgery History of tooth extraction History of left mastectomy History of colonoscopy with polypectomy History of left breast biopsy (04/2020) History of left heart catheterization (05/16/06) History of hysterectomy History of appendectomy Social History Smoking Status: Former smoker quit date: 04/28/05 pack-years: 30 Tobacco: How many years used: 30 how long ago did patient quit smokin years quit status: quit date established alcohol intake: current substance use type: does not use what type of physical activity do you participate in: walking and weight training Vital Signs Vital Signs Vital Signs: 02/01/25 15:00 02/01/25 16:00 02/01/25 17:08 Temperature 98.4 F Temperature Source Pulse Rate 62 60 62 Pulse Strength Respiratory Rate 15 12 18 Respiratory Effort Respiratory Pattern Blood Pressure 190/90 H 138/86 H 160/81 H Blood Pressure Mean 123 103 107 Blood Pressure Source Blood Pressure Position Blood Pressure Location Pulse Ox 97 97 100 Oxygen Delivery Method Room Air Room Air 02/01/25 17:35 02/01/25 17:35 02/01/25 17:45 Temperature 98.2 F 98.2 F Temperature Source Oral Oral Pulse Rate 57 L 57 L Pulse Strength Respiratory Rate 18 18 Respiratory Effort Normal Non-Labored Respiratory Pattern Normal Blood Pressure 165/79 H 165/79 H Blood Pressure Mean 107 107 Blood Pressure Source Monitor Monitor Blood Pressure Position Supine Supine Blood Pressure Location Pulse Ox 98 98 Oxygen Delivery Method Room Air Room Air Room Air 02/01/25 19:00 02/01/25 19:36 02/01/25 20:40 Temperature 98.8 F Temperature Source Oral Pulse Rate 62 82 Pulse Strength Respiratory Rate 18 Respiratory Effort Respiratory Pattern Blood Pressure 135/64 H Blood Pressure Mean 87 Blood Pressure Source Monitor Blood Pressure Position Blood Pressure Location Pulse Ox 97 95 Oxygen Delivery Method Room Air Room Air 02/01/25 20:46 02/01/25 21:46 02/01/25 21:53 Temperature Temperature Source Pulse Rate 82 Pulse Strength Normal (2+) Respiratory Rate Respiratory Effort Normal Non-Labored Respiratory Pattern Normal Blood Pressure 135/64 H Blood Pressure Mean Blood Pressure Source Blood Pressure Position Blood Pressure Location Pulse Ox Oxygen Delivery Method Room Air 02/02/25 02:00 02/02/25 07:03 02/02/25 10:00 Temperature 97.9 F Temperature Source Oral Pulse Rate 70 83 Pulse Strength Respiratory Rate 16 16 Respiratory Effort Respiratory Pattern Blood Pressure 156/75 H 162/74 H Blood Pressure Mean 102 103 Blood Pressure Source Monitor Monitor Blood Pressure Position Semi-Fowlers Blood Pressure Location Right Arm Pulse Ox 96 95 98 Oxygen Delivery Method Room Air Room Air Room Air 02/02/25 10:00 Temperature Temperature Source Pulse Rate Pulse Strength Normal (2+) Respiratory Rate Respiratory Effort Respiratory Pattern Blood Pressure Blood Pressure Mean Blood Pressure Source Blood Pressure Position Blood Pressure Location Pulse Ox Oxygen Delivery Method Weight Weight: 90.9 kg Body Mass Index (BMI) 33.3 EEG Results Procedure Details EEG Procedure Details: KIEL ENGLISH is a 69 year old F with a past medical history of , who presents for evaluation of Electroencephalogram on DATE at TIME Physical Exam Neuro Neuro Narrative: Neurological examination: General: The patient appears nutritionally appropriate, well-groomed, and appears comfortable in no acute distress. Mental Status: The patient?s mental status was normal including orientation. Language was intact. Cranial nerves: Visual calderon full, and extra-ocular motion was intact. Face motion symmetric. There was no dysarthria. Motor: Normal strength and tone in all four extremities. No pronator drift. Sensation: Intact light touch bilaterally, no extinction. Coordination: Bilateral finger to nose was normal. There was no dysmetria. Gait: deferred Lab / Micro Data 02/02/25 04:50 02/02/25 04:50 Labs: Laboratory Results - last 24 hr 02/01/25 14:00: PT Cancelled, INR Cancelled, APTT Cancelled, Sodium 140, Potassium 4.0, Chloride 104, Carbon Dioxide 23.8, Anion Gap 12, BUN 18, Creatinine 1.06, Estim Creat Clear Calc 55.29, Est GFR (MDRD) Non-Af 57 L, BUN/Creatinine Ratio 17.1, Glucose 92, Calcium 9.2, Troponin T High Sens 11 02/01/25 16:00: Troponin T Hi Sens 2 Hr 11, Urine Color Yellow, Urine Clarity Clear, Urine pH 7.0, Ur Specific [place] 1.010, Urine Protein Negative, Urine Glucose (UA) Normal, Urine Ketones Negative, Urine Occult Blood Negative, Urine Nitrite Negative, Urine Bilirubin Negative, Urine Urobilinogen Normal, Ur Leukocyte Esterase Negative, Urine RBC 0 SEEN, Urine WBC 0 SEEN, Ur Squamous Epith Cells 0 SEEN, Urine Bacteria 0 SEEN, Urine Mucus 0 SEEN 02/01/25 16:28: PT 13.6, INR 1.0, APTT < 20.0 L 02/01/25 19:29: Troponin T Hi Sens 4Hr 9 02/02/25 04:50: WBC 12.2 H, RBC 3.64 L, Hgb 11.4 L, Hct 35.4 L, MCV 97.3, MCH 31.3, MCHC 32.2, RDW Std Deviation 48.3 H, RDW Coeff of Lui 13.5, Plt Count 301, MPV 9.8, Immature Gran % (Auto) 0.900, Neut % (Auto) 85.3 H, Lymph % (Auto) 9.1 L, Porter % (Auto) 4.5, Eos % (Auto) 0.0, Baso % (Auto) 0.2, Absolute Neuts (auto) 10.4 H, Absolute Lymphs (auto) 1.11, Nucleated RBC % 0, Sodium 141, Potassium 4.2, Chloride 108, Carbon Dioxide 22.8, Anion Gap 10, BUN 17, Creatinine 0.87, Estim Creat Clear Calc 67.02, Est GFR (MDRD) Non-Af 71, BUN/Creatinine Ratio 19.3, Glucose 99, Calcium 8.7, Triglycerides 67, Cholesterol 176, LDL Cholesterol, Calc 79, VLDL Cholesterol 13, HDL Cholesterol 84, Cholesterol/HDL Ratio 2.10 Imaging Radiology Impression Chest X-Ray 02/01/25 15:35 IMPRESSION: No acute cardiopulmonary abnormalities. Reading Location: [address] Head/Neck CTA 02/01/25 15:45 IMPRESSION: No large vessel arterial occlusion or hemodynamically significant stenosis. Findings communicated with provider Dr. Bowman 02/01/2025 at 3:35 p.m. 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 Reading Location: [facility] Brain MRI 02/01/25 17:01 IMPRESSION: No acute intracranial abnormality; no acute infarct. Reading Location: [facility] Echocardiogram 02/01/25 17:01 Interpretation Summary Normal left ventricle. The global longitudinal strain = -18.4 % (normal). The left ventricular ejection fraction is 60 %. Stage 1 diastolic dysfunction. Ordering Physician: Blayne Yoder Referring Physician: Chris Montelongo Performed By: Maryan Encinas RDCS Active Medications Active Medications Active Medications: Current Medications Generic Name Dose Route Start Last Admin Trade Name Freq PRN Reason Stop Dose Admin Acetaminophen 650 mg 02/01/25 17:49 Acetaminophen 325 Mg Tablet PO Q6H PRN PRN Pain 1-10 Or Fever >100.7 Hydrocodone Bitart/Acetaminophen 1 tablet 02/01/25 20:16 02/01/25 20:42 Hydrocodone Bitartrate/Apap 5/325 Tablet PO 1 tablet Q6H PRN PRN Administration Pain Score 4-10 Albuterol Sulfate 2.5 mg 02/01/25 17:57 Albuterol 2.5 Mg/3 Ml Vial.Neb. INHALATION Q4H PRN Asthma Anastrozole 1 mg 02/02/25 10:00 02/02/25 11:11 Anastrozole 1 Mg Tablet PO 1 mg DAILY CARSON Administration Aspirin 81 mg 02/02/25 08:00 02/02/25 11:11 Aspirin 81 Mg Tab.Chew PO 81 mg BREAKFAST CARSON Administration Diphenhydramine HCl 25 mg 02/01/25 17:49 Diphenhydramine 25 Mg Capsule PO TID PRN PRN ITCHING Folic Acid 2 mg 02/02/25 08:00 02/02/25 11:11 Folic Acid 1 Mg Tablet PO 2 mg BREAKFAST CARSON Administration Hydralazine HCl 5 mg 02/01/25 17:49 Hydralazine 20 Mg/Ml Vial IV 02/02/25 17:49 Q30M PRN maintain BP parameters with HR <60 Hydralazine HCl 50 mg 02/02/25 14:00 Hydralazine 50 Mg Tablet PO TID [facility] Protocol Hydroxychloroquine Sulfate 200 mg 02/01/25 22:00 02/02/25 11:11 Hydroxychloroquine 200 Mg Tablet PO 200 mg BIDCM CARSON Administration Ketorolac Tromethamine 15 mg 02/01/25 17:49 Ketorolac 15 Mg/Ml Vial IV 02/06/25 17:49 Q6H PRN PRN Pain Score 1-10 Labetalol HCl 10 - 20 mg 02/01/25 17:49 Labetalol 20 Mg/4 Ml Vial IV 02/02/25 17:49 Q10M PRN PRN maintain BP parameters with HR >/=60 Ondansetron HCl 4 mg 02/01/25 17:49 Ondansetron 4 Mg/2 Ml Vial IV Q8H PRN PRN NAUSEA/VOMITING Paroxetine HCl 30 mg 02/02/25 10:00 02/02/25 11:11 Paroxetine 10 Mg Tablet PO 30 mg DAILY CARSON Administration Propranolol HCl 80 mg 02/02/25 22:00 Propranolol La 80 Mg Capsule PO QHS [facility] Protocol Trazodone HCl 100 mg 02/01/25 22:00 02/01/25 20:42 Trazodone 100 Mg Tablet PO 100 mg QHS CARSON Administration NIHSS NIHSS Nursing Documentation NIHSS Nursing Documentation: NIHSS: Ischemic Stroke/TIA Start: 02/01/25 17:49 Text: For PCU Patients: NIH and Neuro Check every 4 Status: Active hours, PRN and with change in RN caregiver. Freq: [id number] Protocol: Activity Type Activity Date Activity User E-sign Co-sign Detail Recorded Client Recorded Date Recorded By Document 02/02/25 10:00 HEATHER [id number] 02/02/25 11:39 HEATHER 02/02/25 10:00 NIH Stroke Scale [NIHSS] A score of 0 is normal or asymptomatic . Total possible score is 42. Inpatient: RN or Physician to activate a stroke alert for onset of new stroke symptoms or with NIHSS increase >/= 3 points. Following change in neurological status, NIHSS will be performed per physician order or more frequently PRN. -1a. Level of Consciousness 0 - Alert; keenly responsive -1b. LOC Questions 0 - Answers BOTH questions correctly -1c. LOC Commands 0 - Performs BOTH tasks correctly -2. Best Gaze 0 - Normal -3. Visual 0 - No visual loss -4. Facial Palsy 0 - Normal symmetrical movements -5a. Left Arm 0 - No drift; arm holds 90 ( or 45) degrees for full 10 seconds -5b. Right Arm 0 - No drift; arm holds 90 ( or 45) degrees for full 10 seconds -6a. Left Leg 0 - No drift; leg holds 30- degree position for full 5 seconds -6b. Right Leg 0 - No drift; leg holds 30- degree position for full 5 seconds -7. Limb Ataxia 0 - Absent -8. Sensory 1 - Mild-to- moderate sensory loss; -9. Best Language 0 - No aphasia; normal -10. Dysarthria 0 - Normal -11. Extinction and Inattention 0 - No abnormality -Total 1 Query Text:A score of 0 is normal or asymptomatic. Total possible score is 42 . ED: Notify Physician for NIHSS increase by > / = 3 points. Inpatient: RN or Physician to activate a stroke alert for NIHSS increase of > / = 3 points. Coma Scale [Assess] -Eye Opening Spontaneous -Motor Obeys Commands -Verbal Oriented [Total] -Coma Scale Total 15 NIHSS 1a. Level of Consciousness: 0 - Alert; keenly responsive 1b. LOC Questions: 0 - Answers BOTH questions correctly 1c. LOC Commands: 0 - Performs BOTH tasks correctly 2. Best Gaze: 0 - Normal 3. Visual: 0 - No visual loss 4. Facial Palsy: 0 - Normal symmetrical movements 5a. Left Arm: 0 - No drift; arm holds 90 (or 45) degrees for full 10 seconds 5b. Right Arm: 0 - No drift; arm holds 90 (or 45) degrees for full 10 seconds 6a. Left Le - No drift; leg holds 30-degree position for full 5 seconds 6b. Right Le - No drift; leg holds 30-degree position for full 5 seconds 7. Limb Ataxia: 0 - Absent 8. Sensory: 0 - Normal; no sensory loss 9. Best Language: 0 - No aphasia; normal 10. Dysarthria: 0 - Normal 11. Extinction and Inattention: 0 - No abnormality Total: 0
--- NOTE | 2025-02-02 15:52 | PCM.DC.SUM ---
Providers Date of Admission: 02/01/25 Date of Discharge: 02/02/25 Primary Care Physician: Dr. Chris Montelongo MD Consultations 02/01/25 17:49 Consult: Tele-Neurology Routine Consulting Provider: [facility] Reason for Consult: Acute Ischemic Stroke/TIA EMERGENT Consult: No MD Notified: Yes Date Notified: 02/01/25 Time Notified: 16:58 Method of Notification: ED Physician Initiated Nursing Unit Staff Notify [facility] of Tele-Neurology Consult: Yes Reason For Visit: LEFT SIDED WEAKNESS Diagnosis Discharge Diagnosis (1) Left-sided weakness: Status: Acute Code(s): R53.1 - Weakness (2) Hypertensive urgency: Status: Acute Code(s): I16.0 - Hypertensive urgency (3) Chest pain: Status: Acute Code(s): R07.9 - Chest pain, unspecified Medications at Discharge Home Medications hydroxychloroquine 200 mg tablet (Plaquenil) 200 mg PO BID . 11/24/23 denosumab 60 mg/mL subcutaneous syringe (Prolia) 60 mg subcut [id number] BONE DENSITY 05/05/24 sumatriptan succinate 50 mg tablet See Rx Instructions PO .COMPLEX MIGRAINE #14 tabs 07/05/24 anastrozole 1 mg tablet 1 mg PO DAILY BREAST CANCER #90 TABLETS 09/03/24 epinephrine 0.3 mg/0.3 mL injection, auto-injector (EpiPen 2-Federico) 0.3 mg (0.3 mL) IM Q5-15M PRN anaphylaxis #4 ea 12/30/24 paroxetine HCl 30 mg tablet 30 mg PO DAILY ANXIETY #90 tabs 12/30/24 propranolol 80 mg capsule,24 hr,extended release 80 mg PO QHS HTN #90 caps 01/24/25 trazodone 100 mg tablet 100 mg PO QHS Sleep #90 tabs 01/24/25 albuterol sulfate 90 mcg/actuation aerosol inhaler 2 puff inhalation Q6H PRN Asthma #8.5 grams 01/25/25 axjdsim-igkampjysqyka-usezgyvb 250 mg-250 mg-65 mg tablet (Excedrin Extra Strength) 1 tab PO Q6H PRN pain 02/01/25 folic acid 1 mg tablet 2 mg PO DAILY SUPPLEMENT 02/01/25 hydrocodone-acetaminophen 5-325mg 5mg-325mg 1 tab PO BID PRN pain 02/01/25 prednisone 20 mg tablet 40 mg PO DAILY POISION GI 02/01/25 hydralazine 50 mg tablet 50 mg PO TID #90 tabs 02/02/25 Hospital Course Operations None Procedures 2-D Echocardiogram, EKG and - (CT brain/CTA head neck/chest x-ray/MRI brain) Summary of Care Provided Minutes Spent on Discharge: 36 Hospital Course: Mrs. Cortez is a 69-year-old female who presents emergency department [facility] on 02/01/2025 as a stroke alert. Patient stated in triage that she was experiencing left facial numbness as well as left-sided weakness in her arm and leg and a right sided headache. She reported her symptoms started at 8:00 in the morning of presentation. Symptoms started 7 hours prior to presentation. She also complained of some shortness of breath and chest pressure. She did indicate she had generalized weakness at baseline but she thought more was her left side. Stroke team was called by the triage nurse. Patient did take some [place] prior to presentation for her headache and the headache was on the top of her head on the right side. She went to her doctor's office but was found to be markedly hypertensive so she was sent to the emergency department given her symptoms. Vital signs on presentation showed temperature of 36.6 ?C, heart rate 69, respiratory rate is 18, blood pressure was 192/96 and pulse ox was 100% on room air. Her blood pressure remained markedly elevated. Initial NIH in emergency department was 1 for some sensory changes. Those persisted throughout her hospital course. CBC showed a mild leukocytosis with a white count of 15.3 but this decree significantly prior to discharge. Coags were normal. Chemistry panel was unremarkable. Cardiac enzymes were cycled with a troponin T of 11 and a delta of 11 and a 4-hour troponin of 9. Cholesterol panel showed a total cholesterol of 176, LDL of 79, HDL of 84. Patient had a hemoglobin A1c of 5.5 earlier this year. Blood sugars were not elevated. CT of the brain on presentation was unremarkable. CTA of the head and neck showed no large vessel arterial occlusions or hemodynamically significant stenosis. Chest x-ray is unremarkable. EKG showed sinus rhythm without any changes concerning for ischemia. She was admitted for stroke workup. MRI of the brain was unremarkable. Echocardiogram was performed and showed an EF of 60% with stage I diastolic dysfunction and no valvular abnormalities. Pulmonary pressure was 20 mmHg. Neurology evaluated the patient and felt that she should go home with no further workup recommended. Aspirin was to be discontinued. On the day my evaluation she did complain of some strange sensation in her left thigh. With regards to her eye complaints she was asked to follow-up with ophthalmology for dilated eye exam given them go to MRI. She did have some residual paresthesias but no motor abnormalities. Neurology was concerned this could be a complex migraine. She had no headache any longer at the time of discharge. She was referred to the [facility] for ongoing evaluation of her left eye. Blood pressure was noted to be consistently elevated so we did increase her hydralazine from 25 to 50 mg 3 times daily. Of asked her to follow-up with primary care physician and check her blood pressures daily until she follows up with her PCP. She is to write these down and take them to her primary care physician. In addition, she is to take her blood pressure cuff to that appointment to be checked for accuracy.. Discharge diagnoses: Generalized weakness left worse than right-resolved Right-sided headache-resolved Left-sided paresthesias Hypertensive urgency Chest pain Recent dermatitis History of complex migraines Essential hypertension History of breast cancer [place] History of basal cell carcinoma of the back Fibromyalgia History of colon cancer Visit vitamin D deficiency History rheumatoid arthritis Physical Exam Narrative Patient states the vision in her left eye is still weird. She has trouble explaining it. We discussed that her MRI was negative and I have asked her to follow-up with the [facility] for a dilated eye exam. Const alert, oriented x3, no apparent distress, no limitations and well nourished Constitutional Narrative: Older, obese, white female, sitting up in bed, appears comfortable, texting on cell phone and watching television, nontoxic General Appearance: cooperative, comfortable, well kempt and well developed Exam Limitations: no limitations Nutritional Appearance: obese HEENT normocephalic, head/scalp atraumatic, hearing grossly normal bilaterally and moist oral mucous membranes HEENT Narrative: Mallampati 3, no thrush Eyes conjunctivae normal Eyes Narrative: No scleral icterus Neck supple Neck Narrative: Trachea midline Resp normal respiratory effort, no retractions, no use of accessory muscles and clear to auscultation bilaterally Auscultation: Negative for rales, rhonchi or wheezes Cardio regular rate, regular rhythm, S1 normal heart sound, S2 normal heart sound, no murmurs, no rub, no gallops and no clicks GI normal to inspection, nondistended, normoactive bowel sounds, soft to palpation and non-tender Extremity no clubbing, cyanosis or edema Extremity Narrative: 2+ pedal pulses Skin no jaundice, no petechiae and no mottling Skin Narrative: Scattered ecchymosis right upper extremity from blood pressure cuff Neuro oriented x3, CN's II-XII intact bilaterally, moves all extremities and no focal motor deficits Neuro Narrative: Slight left-sided paresthesias/sensory changes Speech: speech normal Psych affect normal Psych Narrative: Very pleasant, eye contact is good and patient interacts appropriately Weight / BMI Weight Weight: 90.9 kg Body Mass Index (BMI) 33.3 ABG / Lab / Microbiology Data 02/02/25 04:50 02/02/25 04:50 Laboratory: Laboratory Results - last 24 hr 02/01/25 14:00: PT Cancelled, INR Cancelled, APTT Cancelled 02/01/25 16:00: Troponin T Hi Sens 2 Hr 11, Urine Color Yellow, Urine Clarity Clear, Urine pH 7.0, Ur Specific [place] 1.010, Urine Protein Negative, Urine Glucose (UA) Normal, Urine Ketones Negative, Urine Occult Blood Negative, Urine Nitrite Negative, Urine Bilirubin Negative, Urine Urobilinogen Normal, Ur Leukocyte Esterase Negative, Urine RBC 0 SEEN, Urine WBC 0 SEEN, Ur Squamous Epith Cells 0 SEEN, Urine Bacteria 0 SEEN, Urine Mucus 0 SEEN 02/01/25 16:28: PT 13.6, INR 1.0, APTT < 20.0 L 02/01/25 19:29: Troponin T Hi Sens 4Hr 9 02/02/25 04:50: WBC 12.2 H, RBC 3.64 L, Hgb 11.4 L, Hct 35.4 L, MCV 97.3, MCH 31.3, MCHC 32.2, RDW Std Deviation 48.3 H, RDW Coeff of Lui 13.5, Plt Count 301, MPV 9.8, Immature Gran % (Auto) 0.900, Neut % (Auto) 85.3 H, Lymph % (Auto) 9.1 L, [place] % (Auto) 4.5, Eos % (Auto) 0.0, Baso % (Auto) 0.2, Absolute Neuts (auto) 10.4 H, Absolute Lymphs (auto) 1.11, Nucleated RBC % 0, Sodium 141, Potassium 4.2, Chloride 108, Carbon Dioxide 22.8, Anion Gap 10, BUN 17, Creatinine 0.87, Estim Creat Clear Calc 67.02, Est GFR (MDRD) Non-Af 71, BUN/Creatinine Ratio 19.3, Glucose 99, Calcium 8.7, Triglycerides 67, Cholesterol 176, LDL Cholesterol, Calc 79, VLDL Cholesterol 13, HDL Cholesterol 84, Cholesterol/HDL Ratio 2.10 Radiography Diagnostic Testing: Radiology Impression Chest X-Ray 02/01/25 15:35 IMPRESSION: No acute cardiopulmonary abnormalities. Reading Location: [address] Head/Neck CTA 02/01/25 15:45 IMPRESSION: No large vessel arterial occlusion or hemodynamically significant stenosis. Findings communicated with provider Dr. Bowman 02/01/2025 at 3:35 p.m. REGISTER CLERK. Reading Location: [facility] Brain MRI 02/01/25 17:01 IMPRESSION: No acute intracranial abnormality; no acute infarct. Reading Location: [facility] Echocardiogram 02/01/25 17:01 Interpretation Summary Normal left ventricle. The global longitudinal strain = -18.4 % (normal). The left ventricular ejection fraction is 60 %. Stage 1 diastolic dysfunction. Ordering Physician: Blayne Yoder Referring Physician: Chris Montelongo Performed By: Maryan Encinas RDCS D/C Instructions Discharge Activity: Return to Normal Activity DC O2, CPAP, BIPAP Needs Home O2 Discharge instructions: No Meaningful Use Info Meaningful Use Meaningful Use Diagnoses (Choose all that apply): None applicable Discharge Plan Admission Admit Date/Time: 02/01/25 16:56 Primary Reason for Your Visit: Left-sided numbness Attending Provider: Génesis Negrete Primary Care Provider: Chris Montelongo Consulting Providers: Romulo Oconnell; Bala Porter; Carine Thurston; Elva Lovett; Marisela Damon; Bret Zaidi; Leny Riddle; Omero García; Omari Fox; Wallace Cristina; Amanda Branham; Soraida Phillips; Donato Livingston; Maia Kimball; Yara Alarcon; Mike Garcia; Oscar Rao; Yoly Ellis; Angelo Nichole; Ricarda Negrete; Wendy Loja; Blayne Yoder Instructions Additional Instructions / Restrictions: 1. Take your blood pressure 1 time daily at random times and take these to your primary care physician as well as your blood pressure cuff at your next appointment 2. Please call the [facility] tomorrow and set an appointment for your left eye visual issues as your MRI was negative. Please call tomorrow to set this up as they may be able to get you in same-day - youshould have regular eye exams on Plaquenil Discharge Orders/Prescriptions Prescriptions: New hydralazine 50 mg Tablet 50 mg PO TID Qty: 90 1RF Continued hydroxychloroquine [Plaquenil] 200 mg tablet 200 mg PO BID Prolia 60 mg/mL syringe 60 mg subcut [id number] hydrocodone-acetaminophen 5-325 mg tablet 1 tab PO BID PRN (Reason: pain) folic acid 1 mg tablet 2 mg PO DAILY ynubszn-jpcfjgwnarwiw-svurswsu [Excedrin Extra Strength] 250-250-65 mg tablet 1 tab PO Q6H PRN (Reason: pain) prednisone 20 mg tablet 40 mg PO DAILY Patient Comments: WAS ON A 5 DAY COURSE FINISHED YESTERDAY sumatriptan succinate 50 mg tablet See Rx Instructions PO .COMPLEX Qty: 14 1RF Rx Instructions: take 1 tab at onset of headache; if no relief may repeat 1 tab after at least 2 hrs; max = 4 tabs/24 hr PO anastrozole 1 mg tablet 1 mg PO DAILY Qty: 90 3RF epinephrine [EpiPen 2-Federico] 0.3 mg/0.3 mL auto-injector 0.3 mg IM Q5-15M PRN (Reason: anaphylaxis) Qty: 4 3RF Rx Instructions: do not exceed 3 doses per episode paroxetine HCl 30 mg tablet 30 mg PO DAILY Qty: 90 1RF trazodone 100 mg tablet 100 mg PO QHS Qty: 90 1RF propranolol 80 mg capsule,extended release 24 hr 80 mg PO QHS Qty: 90 3RF albuterol sulfate 90 mcg/actuation HFA aerosol inhaler 2 puff INHALATION Q6H PRN (Reason: Asthma) Qty: 8.5 3RF Discontinued hydralazine 25 mg tablet 25 mg PO TID 30 Days Qty: 90 1RF Referrals / Follow Up: Chris Montelongo MD [Primary Care Provider, Internal Medicine] - In 1 Week Disposition Disposition (needs filled in before D/C Order can be placed): Home, Self Care Charges/Coding Visit Charges Inpatient E&M: 19031 Disch Hosp >30min
[2025-02-02 15:55] VITALS: PULSE 72
--- NOTE | 2025-02-02 15:59 | CASEMGMT ---
RN GILBERT NOTE: Intro role of CM to patient and RAYMOND form explained re: Observation status for treatment of left sided weakness.? Explained hospitalization will be paid per?her insurance policy for Outpatient billing?and condition will continue to be evaluated for Inpt necessity. Also let pt know that [facility] sends paper in the billing packet with their phone number if questions arise. Discussed Pharmacy section of [facility] form and self administered medication guideline.? Pt verbalizes understanding and does not have further questions. ?Form signed, copy made and placed in chart, and original given to pt. Bryanna WUN RN CM
--- NOTE | 2025-02-02 16:09 | CASEMGMT ---
TAMELA HUNT NOTE: Discharge order is in. Pt denies having any discharge needs or concerns. She states her will be taking her home. She states someone will be able to go to [facility] to picker and sorter load and unload new Rx today. Bryanna CORONEL RN CM
[2025-02-02 16:17] VITALS: BP 146/78; PULSE 72; RESP 16; TEMP 36.5; O2SAT 95
[2025-02-02 16:19] VITALS: BMI 33.3
--- NOTE | 2025-02-02 16:37 | PHA.DC.MR.R ---
Pharmacy [place] Med Reconciliation Pharmacy Service has performed discharge medication reconciliation for this patient. The patient's discharge medication list was reviewed for discrepancies and discrepancies were resolved. Medications at Discharge Home Medications hydroxychloroquine 200 mg tablet (Plaquenil) 200 mg PO BID . 11/24/23 denosumab 60 mg/mL subcutaneous syringe (Prolia) 60 mg subcut [id number] BONE DENSITY 05/05/24 sumatriptan succinate 50 mg tablet See Rx Instructions PO .COMPLEX MIGRAINE #14 tabs 07/05/24 anastrozole 1 mg tablet 1 mg PO DAILY BREAST CANCER #90 TABLETS 09/03/24 epinephrine 0.3 mg/0.3 mL injection, auto-injector (EpiPen 2-Federico) 0.3 mg (0.3 mL) IM Q5-15M PRN anaphylaxis #4 ea 12/30/24 paroxetine HCl 30 mg tablet 30 mg PO DAILY ANXIETY #90 tabs 12/30/24 propranolol 80 mg capsule,24 hr,extended release 80 mg PO QHS HTN #90 caps 01/24/25 trazodone 100 mg tablet 100 mg PO QHS Sleep #90 tabs 01/24/25 albuterol sulfate 90 mcg/actuation aerosol inhaler 2 puff inhalation Q6H PRN Asthma #8.5 grams 01/25/25 jziqonl-sstawuonufmot-jzpgewyr 250 mg-250 mg-65 mg tablet (Excedrin Extra Strength) 1 tab PO Q6H PRN pain 02/01/25 folic acid 1 mg tablet 2 mg PO DAILY SUPPLEMENT 02/01/25 hydrocodone-acetaminophen 5-325mg 5mg-325mg 1 tab PO BID PRN pain 02/01/25 prednisone 20 mg tablet 40 mg PO DAILY POISION GI 02/01/25 hydralazine 50 mg tablet 50 mg PO TID #90 tabs 02/02/25
== END 2025-02-02 17:46 | disposition home or self-care (01) ==
LOC: ED 17:02 → PCU 17:04
PROVIDERS: Emergency Provider Emergency Medicine; PCP Internal Medicine; Visit Provider Internal Medicine
DX: I16.0 Hypertensive urgency (principal); M06.9 Rheumatoid arthritis, unspecified; I10 Essential (primary) hypertension; Z87.891 Personal history of nicotine dependence; G43.909 Migraine, unspecified, not intractable, without status migrainosus; R29.898 Other symptoms and signs involving the musculoskeletal system; Z86.711 Personal history of pulmonary embolism; R06.02 Shortness of breath; R07.89 Other chest pain; E78.5 Hyperlipidemia, unspecified; R53.1 Weakness; R20.2 Paresthesia of skin; Z79.899 Other long term (current) drug therapy; R00.1 Bradycardia, unspecified; I07.1 Rheumatic tricuspid insufficiency
CPT/HCPCS: 36415; 70450; 70496; 70498; 70551; 71045; 80048; 80061; 81001; 82962; 84484; 85025; 85610; 85730; 93005; 93306; 94762; 96374; 96375; 97162; 97166; 99221; 99285; Q9967; A4216; G0378

== ENCOUNTER → 2025-02-10 | Outpatient (CLI) | payer MEDICARE, BC, SELFPAY ==
[2025-02-10 15:15] LABS: Hematocrit 38.7 % (37-47); Hemoglobin 12.5 g/dL (12.0-15.0); Immature Granulocytes Count 0.110 X10^3/uL (0.0-0.0); Mean Corp Hgb Conc 32.3 g/dL (32-36); Mean Corpuscular Volume 99.2 fL (81-99); Mean Platelet Vol. 9.2 fl (6.2-12.0); NRBC Flagged by Analyzer 0 % (0-5); Platelet Count 301 K/mm3 (150-450); RBC Distribution Width CV 13.7 % (11.6-14.6); RBC Distribution Width SD 49.6 fl (35.1-43.9); Red Blood Count 3.90 M/mm3 (4.2-5.4); White Blood Count 10.1 K/mm3 (4.4-11.0)
[2025-02-10 15:51] LABS: AST(SGOT) 20 U/L (<=31); Alanine Aminotransfer ALT/SGPT 33 U/L (<=34); Albumin, Serum 4.1 g/dL (3.4-4.8); Alkaline Phosphatase 50 U/L (35-104); Anion Gap 8 (5-15); BUN 20 mg/dL (4-19); BUN/Creat Ratio 18.5 RATIO (10-20); Calcium,Total 9.2 mg/dL (7.6-11.0); Carbon Dioxide 23.4 mmol/L (21.0-32.0); Chloride 109 mmol/L (98-108); Globulin 2.3 g/dL (2.2-4.2); Glucose 89 mg/dL (70-99); Potassium 4.8 mmol/L (3.3-5.1)
== END | disposition home or self-care (01) ==
LOC: LAB 14:38
PROVIDERS: PCP Internal Medicine; Referring Provider Internal Medicine Rheumatology; Visit Provider Internal Medicine Rheumatology
DX: M06.4 Inflammatory polyarthropathy (principal); M79.7 Fibromyalgia; M19.041 Primary osteoarthritis, right hand; Z79.899 Other long term (current) drug therapy
CPT/HCPCS: 36415; 80053; 85025

== ENCOUNTER → 2025-03-08 | Outpatient (CLI) | payer MEDICARE, BC, SELFPAY ==
--- NOTE | 2025-03-08 14:02 | MRI_ITS ---
PROCEDURE: MRA NECK WITHOUT CONTRAST; MRA HEAD ONLY WITHOUT CONTRAST 03/08/2025 REASON FOR EXAM: NEW ONSET PHAM'S WHOOSING IN RT EAR COMPARISON: CTA dated 02/01/2025. TECHNIQUE: [id number] MR imaging of the head and NECK WITHOUT CONTRAST FINDINGS: HEAD: The intracranial segments of the bilateral ICAs appear unremarkable. Hypoplastic A1 segment of the left LETTY. Otherwise the bilateral ACAs appear unremarkable. The anterior communicating artery is patent. The bilateral MCAs appear unremarkable. The intracranial segments of the bilateral vertebral arteries (V4) appear unremarkable. The basilar artery is unremarkable. Hypoplastic P1 segment of the left [employer] with a prominent patent left posterior communicating artery, compatible with a origin of the left [employer]. The remainder of the left [employer] appears unremarkable. The right [employer] is unremarkable. NECK: Motion artifact limits evaluation. Presumed flow-related artifact is noted within the bilateral carotid bulbs. Otherwise the bilateral common carotid arteries, carotid bulbs, and cervical ICAs appear unremarkable. The cervical segments of the bilateral vertebral arteries appear unremarkable. MRI/MRA Head ONLY without Contrast IMPRESSION: No hemodynamically significant stenosis, major vessel occlusion/dissection, or aneurysm greater than 5 millimeters. Reading Location: [id number]
--- NOTE | 2025-03-08 14:02 | MRI_ITS ---
PROCEDURE: MRA NECK WITHOUT CONTRAST; MRA HEAD ONLY WITHOUT CONTRAST 03/08/2025 REASON FOR EXAM: NEW ONSET PHAM'S WHOOSING IN RT EAR COMPARISON: CTA dated 02/01/2025. TECHNIQUE: [id number] MR imaging of the head and NECK WITHOUT CONTRAST FINDINGS: HEAD: The intracranial segments of the bilateral ICAs appear unremarkable. Hypoplastic A1 segment of the left LETTY. Otherwise the bilateral ACAs appear unremarkable. The anterior communicating artery is patent. The bilateral MCAs appear unremarkable. The intracranial segments of the bilateral vertebral arteries (V4) appear unremarkable. The basilar artery is unremarkable. Hypoplastic P1 segment of the left [employer] with a prominent patent left posterior communicating artery, compatible with a origin of the left [employer]. The remainder of the left [employer] appears unremarkable. The right [employer] is unremarkable. NECK: Motion artifact limits evaluation. Presumed flow-related artifact is noted within the bilateral carotid bulbs. Otherwise the bilateral common carotid arteries, carotid bulbs, and cervical ICAs appear unremarkable. The cervical segments of the bilateral vertebral arteries appear unremarkable. MRI/MRA Neck without Contrast IMPRESSION: No hemodynamically significant stenosis, major vessel occlusion/dissection, or aneurysm greater than 5 millimeters. Reading Location: [id number]
== END | disposition home or self-care (01) ==
LOC: MRI 13:56
PROVIDERS: PCP Internal Medicine
DX: R51.9 Headache, unspecified (principal)
CPT/HCPCS: 70544; 70547